=== PATIENT | female | born 1985 | race Caucasian/White ===

== ENCOUNTER → 2021-08-02 06:43 | Outpatient (CLI) | payer OTHER, SELFPAY ==
[2021-08-02] MEDS: Methacholine Chloride 18 ml neb kit INHALATION (07:00)
--- NOTE | 2021-08-02 07:34 | CPS ---
Patient received 4 medication doses of Methacholine during testing as well as the normal saline dose. Patient reached a positive test at the 4mg/ml dose. The last dose, 16mg/ml, was disposed of in the Pharmaceutical waste bin.
--- NOTE | 2021-08-02 14:54 | BRONCHALL ---
Bronchoprovocation Challenge Bronchoprovocation Challenge Bronchoprovocation Challenge: BRONCHOPROVOCATION STUDY INTERPRETATION Brief HPI: Patient is a 36 year old female, currently under the care of Dr. Srivastava, who presents to [facility] for a bronchoprovocation study secondary to diagnosis of dyspnea. Respiratory therapist reports good effort and reproducible results. Interpretation: Initial spirometry showed no large airways obstructive ventilatory defect. The patient was then given increasingly concentrated doses of methacholine in a stepwise/standardized fashion, using a modified ATS protocol. The patient had a significant reduction in FEV1 by 22% and a calculated PD20 of 0.157. Impression: Positive bronchoprovocation study in a range consistent with a diagnosis of asthma
== END ==
PROVIDERS: PCP Internal Medicine
DX: R06.02 Shortness of breath (principal)
CPT/HCPCS: 94070; 95070

== ENCOUNTER → 2023-09-27 | Outpatient (CLI) | payer OTHER, SELFPAY ==
--- OUTSIDE RECORDS SUMMARY | 2023-09-27 07:23 | XMS RPT_ITS | CCD ---
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 Role Phone Diane Higuera MD Primary Care Provider TALAMPAS, DIANE D Primary Care Unavailable NKECHI SRIVASTAVA Attending Unavailable BETANCOURT, SAM A Referring Unavailable TALAMPAS, DIANE D Referring Unavailable TALAMPAS, DIANE D Primary Care Unavailable TALAMPAS, DIANE D Primary Care Unavailable TALAMPAS, DIANE D Primary Care Unavailable TALAMPAS, DIANE D Primary Care Unavailable Selma'LEIDYJAJA Attending Unavailable BERRY, DARIUSZ Referring Unavailable Selma'LEIDYJAJA العراقي Attending Unavailable TALAMPAS, DIANE D Primary Care Unavailable BERRY, DARIUSZ Referring Unavailable TALAMPAS, DIANE D Primary Care Unavailable TALAMPAS, DIANE D Primary Care Unavailable HALLIE KABA Referring Unavail able TALAMPAS, DIANE D Primary Care Unavailable BETANCOURT, SAM A Referring Unavailable TALAMPAS, DIANE D Attending Unavailable TALAMPAS, DIANE D Primary Care Unavailable TALAMPAS, DIANE D Referring Unavailable TALAMPAS, DIANE D Primary Care Unavailable TALAMPAS, DIANE D Primary Care Unavailable ADRIAN BETANCOURTILA A Referring Unavailable BETSEY AGUILERA Attending Unavailable TALAMPAS, DIANE D Primary Care Unavailable BERRY, DARIUSZ Referring Unavailable TALAMPAS, DIANE D Primary Care Unavailable HALLIE KABA Referring Unavail able TIAGO LEBLANC Attending Unavailable TALAMPAS, DIANE D Primary Care Unavailable TALAMPAS, DIANE D Primary Care Unavailable HALLIE KABA Referring Unavail able TALAMPAS, DIANE D Primary Care Unavailable TIAGO LEBLANC Referring Unavailable TIAGO LEBLANC Attending Unavailable TALAMPAS, DIANE D Primary Care Unavailable TALAMPAS, DIANE D Primary Care Unavailable HALLIE KABA Referring Unavail able TALAMPAS, DIANE D Primary Care Unavailable TIAGO LEBLANC Referring Unavailable TIAGO LEBLANC Attending Unavailable TALAMPAS, DIANE D Primary Care Unavailable BESSIE GREGG Attending Unavailable NEYHALLIE PÉREZ Attending Unavail able TALAMPAS, DIANE D Primary Care Unavailable TALAMPAS, DIANE D Primary Care Unavailable TALAMPAS, DIANE D Referring Unavailable TALAMPAS, DIANE D Primary Care Unavailable TALAMPAS, DIANE D Referring Unavailable TALAMPAS, DIANE D Primary Care Unavailable DARIUSZ BERRY Attending Unavailable TALAMPAS, DIANE D Primary Care Unavailable TALAMPAS, DIANE D Primary Care Unavailable TALAMPAS, DIANE D Attending Unavailable TALAMPAS, DIANE D Primary Care Unavailable BESSIE GREGG Attending Unavailable TALAMPAS, DIANE D Primary Care Unavailable NKECHI SRIVASTAVA Referring Unavailable TALAMPAS, DIANE D Primary Care Unavailable NKECHI SRIVASTAVA Referring Unavailable TALAMPAS, DIANE D Primary Care Unavailable NKECHI SRIVASTAVA Referring Unavailable SAM BETANCOURT Attending Unavailable TALAMPAS, DIANE D Attending Unavailable TALAMPAS, DIANE D Primary Care Unavailable Allergies Allergy Classification Reported Allergen(s) Allergy Type Date of Onset Reaction(s) Facility (20 sources) Clindamycin; Translations: [CLINDAMYCIN] Drug Allergy 05-09-20 10 Rash, GI Upset [facility] Work Phone: (4 sources) Penicillins Propensity to adverse reactions 05-09-20 10 Rash [facility] Work Phone: [phone] (20 sources) Sulfamethoxazole / Trimethoprim Drug Allergy 05-09-20 10 Rash, GI Upset [facility] Work Phone: (3 sources) Penicillins Propensity to adverse reactions 05-09-20 10 Rash [facility] Work Phone: [phone] (3 sources) Sulfamethoxazole / Trimethoprim; Translations: [SULFAMETHOXAZOLE-T RIMETHOPRIM] Drug Allergy 05-09-20 10 Rash, GI Upset [facility] Work Phone: (1 source) OTHER; Translations: [OTHER] Propensity to adverse reactions (disorder) 05-09-20 10 [facility] Medications Current Medications Medication Drug Class(es) Dates Sig (Normalized) Sig (Original) benzonatate 100 mg oral capsule (4 sources) Non-narcotic Antitussive Start: 12-30-2021 End: 02-28-2022 benzonatate (TESSALON PERLE) 100 mg capsule Take 1-2 capsules tid prn, no more than 6 in 24 hours. 30 capsule 0 12/30/2021 02/28/2022 Discontinued Completed/Discontinued Medications Medication Drug Class(es) Dates Sig (Normalized) Sig (Original) acetaminophen 325 mg oral capsule (20 sources) acetaminophen 32 5 mg cap Take by mouth as needed. 0 Active Problems Active Problems Problem Classification Problem Date Documented Da te Episodic/Chronic Asthma (20 sources) Uncomplicated asthma; Translations: [Unspecified asthma, uncomplicated] Onset: 05-31-2022 Chronic Complications of surgical procedures or medical care (1 source) Non dose-related adverse reaction to medication; Translations: [Unspecified adverse effect of drug or medicament, initial encounter] Episodic Essential hypertension (20 sources) Benign essential hypertension; Translations: [Essential (primary) hypertension] Onset: 04-19-2021 04-19-2021 Chronic Genitourinary symptoms and ill-defined conditions (20 sources) Female stress incontinence; Translations: [Stress incontinence (female) (male)] Onset: 11-10-2021 11-10-2021 Chronic Immunizations and screening for infectious disease (3 sources) Patient encounter status; Translations: [Encounter for immunization] Episodic Inflammation; infection of eye (except that caused by tuberculosis or sexually transmitteddisease) (1 source) Acute conjunctivitis of right eye; Translations: [Unspecified acute conjunctivitis, right eye] Episodic Menstrual disorders (20 sources) Menorrhagia; Translations: [Excessive and frequent menstruation with regular cycle] Onset: 11-10-2021 11-10-2021 Chronic Other connective tissue disease (1 source) Cramp; Translations: [Cramp and spasm] Episodic Other female genital disorders (1 source) Abnormal uterine and vaginal bleeding, unspecified; Translations: [Abnormal uterine bleeding (AUB)] Onset: 01-12-2023 Chronic Other gastrointestinal disorders (1 source) Loose stool; Translations: [Other fecal abnormalities] 05-30-2023 Episodic Other gastrointestinal disorders (2 sources) Constipation alternates with diarrhea; Translations: [Other specified symptoms and signs involving the digestive system and abdomen] 06-16-2023 Episodic Other gastrointestinal disorders (1 source) Full rectum; Translations: [Other specified symptoms and signs involving the digestive system and abdomen] 06-16-2023 Episodic Other gastrointestinal disorders (1 source) Amount of mucus in stool abnormal; Translations: [Other fecal abnormalities] 06-16-2023 Episodic Other gastrointestinal disorders (2 sources) Altered bowel function; Translations: [Change in bowel habit] 06-16-2023 Episodic Other gastrointestinal disorders (1 source) Functional diarrhea; Translations: [Functional diarrhea] 08-07-2023 Episodic Other injuries and conditions due to external causes (1 source) Allergic condition; Translations: [Allergy, unspecified, subsequent encounter] Episodic Other lower respiratory disease (1 source) Wheezing; Translations: [Wheezing] Episodic Other lower respiratory disease (1 source) Cough; Translations: [Cough] Episodic Other non-traumatic joint disorders (2 sources) Multiple joint pain; Translations: [Pain in unspecified joint] 05-04-2023 Episodic Other non-traumatic joint disorders (2 sources) Hip pain; Translations: [Pain in right hip] 05-25-2023 Episodic Other nutritional; endocrine; and metabolic disorders (1 source) Obesity; Translations: [Other obesity due to excess calories] Chronic Other nutritional; endocrine; and metabolic disorders (2 sources) Obesity caused by energy imbalance; Translations: [Other obesity due to excess calories] 05-04-2023 Chronic Other nutritional; endocrine; and metabolic disorders (1 source) Morbid (severe) obesity due to excess calories; Translations: [Class 3 severe obesity due to excess calories with body mass index (BMI) of 40.0 to 44.9 in adult, unspecified whether serious comorbidity present (HCC)] Onset: 02-09-2023 Chronic Other nutritional; endocrine; and metabolic disorders (1 source) Body mass index (BMI) 40.0-44.9, adult; Translations: [Class 3 severe obesity due to excess calories with body mass index (BMI) of 40.0 to 44.9 in adult, unspecified whether serious comorbidity present (HCC)] Onset: 02-09-2023 Chronic Other screening for suspected conditions (not mental disorders or infectious disease) (3 sources) Other abnormal and inconclusive findings on diagnostic imaging of breast; Translations: [Encounter for screening for malignant neoplasm of colon] Onset: 07-06-2023 Episodic Other upper respiratory disease (4 sources) Allergic rhinitis; Translations: [Allergic rhinitis, unspecified] Chronic Other upper respiratory disease (20 sources) Allergic rhinitis due to pollen; Translations: [Allergic rhinitis due to pollen] Onset: 05-31-2022 Chronic Other upper respiratory disease (20 sources) Chronic rhinitis; Translations: [Chronic rhinitis] Onset: 05-31-2022 Chronic Other upper respiratory disease (1 source) Allergic rhinitis, unspecified; Translations: [Allergic rhinitis, unspecified seasonality, unspecified trigger] Onset: 02-09-2023 Chronic Other upper respiratory disease (1 source) Chronic rhinitis; Translations: [Chronic rhinitis] Onset: 05-31-2022 Chronic Other upper respiratory infections (3 sources) Posterior rhinorrhea; Translations: [Postnasal drip] Episodic Sprains and strains (4 sources) Strain of back muscle; Translations: [Strain of muscle, fascia and tendon of lower back, initial encounter] Onset: 04-13-2023 04-13-2023 Episodic Unclassified (1 source) APPOINTMENT CANCELLED 04-01-2023 Viral infection (1 source) Viral disease; Translations: [Viral infection, unspecified] Episodic Past or Other Problems Problem Classification Problem Date Documented Da te Episodic/Chronic Abdominal pain (9 sources) Epigastric pain; Translations: [Epigastric pain] Onset: 01-12-2023 06-26-2023 Episodic Gastrointestinal hemorrhage (8 sources) Rectal hemorrhage; Translations: [Hemorrhage of anus and rectum] Onset: 06-26-2023 06-26-2023 Episodic Hemorrhoids (2 sources) Bleeding hemorrhoids; Translations: [Unspecified hemorrhoids] Onset: 06-16-2023 06-16-2023 Episodic Nausea and vomiting (9 sources) Nausea; Translations: [Nausea] Onset: 06-26-2023 06-26-2023 Episodic Nonspecific chest pain (20 sources) Chest pain; Translations: [Chest pain, unspecified] Onset: 04-19-2021 04-19-2021 Episodic Other female genital disorders (20 sources) Polyp of cervix; Translations: [Polyp of cervix uteri] Onset: 11-10-2021 11-10-2021 Episodic Other gastrointestinal disorders (8 sources) Diarrhea; Translations: [Diarrhea, unspecified] Onset: 07-19-2010 06-26-2023 Episodic Other gastrointestinal disorders (1 source) Diarrhea, unspecified; Translations: [Diarrhea, unspecified type] Onset: 06-26-2023 Episodic Other gastrointestinal disorders (1 source) Other specified symptoms and signs involving the digestive system and abdomen; Translations: [Alternating constipation and diarrhea] Onset: 06-16-2023 Episodic Other gastrointestinal disorders (1 source) Change in bowel habit; Translations: [Change in bowel habits] Onset: 06-16-2023 Episodic Other injuries and conditions due to external causes (1 source) Allergy, unspecified, subsequent encounter; Translations: [Allergy, subsequent encounter] Onset: 05-15-2023 Episodic Other lower respiratory disease (20 sources) Dyspnea; Translations: [Shortness of breath] Onset: 04-19-2021 04-19-2021 Episodic Other lower respiratory disease (1 source) Shortness of breath; Translations: [SOB (shortness of breath)] Onset: 04-19-2021 Episodic Other non-traumatic joint disorders (1 source) Pain in right hip; Translations: [Bilateral hip pain] Onset: 05-25-2023 Episodic Other non-traumatic joint disorders (1 source) Pain in left hip; Translations: [Bilateral hip pain] Onset: 05-25-2023 Episodic Other non-traumatic joint disorders (1 source) Pain in unspecified joint; Translations: [Pain in joint, multiple sites] Onset: 05-04-2023 Episodic Results Test Name Value Interpretation Reference Range Facil ity Vital Signs Date Time Vital Sign Value Performing Clinician Say robb 09-03-2023 14:58-0500 Body weight 78.93 kg Bessie Gregg PA-C Work Phone: [facility] 09-03-2023 14:58-0500 Diastolic blood pressure 84 mm[Hg] Bessie Gregg PA-C Work Phone: [facility] 09-03-2023 14:58-0500 Heart rate 58 /min Bessie Gregg PA-C Work Phone: [facility] 09-03-2023 14:58-0500 Respiratory rate 14 /min Bessie Johnsonone PA-C Work Phone: [facility] 09-03-2023 14:58-0500 SaO2% (BldA) [Mass fraction] 100 % Bessie Pricilla PA-C Work Phone: [facility] 09-03-2023 14:58-0500 Systolic blood pressure 128 mm[Hg] Bessie Johnsonone PA-C Work Phone: [facility] 08-03-2023 08:15-0500 Body temperature 98.4 [degF] Tiago Leblanc MD Work Phone: [facility] 08-03-2023 08:15-0500 Body weight 83.28 kg Tiago Leblanc MD Work Phone: [facility] 08-03-2023 08:15-0500 Diastolic blood pressure 80 mm[Hg] Tiago Leblanc MD Work Phone: [facility] 08-03-2023 08:15-0500 Heart rate 89 /min Tiago Leblanc MD Work Phone: [facility] 08-03-2023 08:15-0500 Respiratory rate 16 /min Tiago Leblanc MD Work Phone: [facility] 08-03-2023 08:15-0500 SaO2% (BldA) [Mass fraction] 100 % Tiago Leblanc MD Work Phone: [facility] 08-03-2023 08:15-0500 Systolic blood pressure 128 mm[Hg] Tiago Leblanc MD Work Phone: [facility] 06-26-2023 16:02-0400 Body height 172.7 cm Tiago Leblanc MD Work Phone: [facility] 06-26-2023 16:02-0400 Body temperature 99.1 [degF] Tiago Leblanc MD Work Phone: [facility] 06-26-2023 16:02-0400 Body weight 90.17 kg Tiago Leblanc MD Work Phone: [facility] 06-26-2023 16:02-0400 Diastolic blood pressure 84 mm[Hg] Tiago Leblanc MD Work Phone: [facility] 06-26-2023 16:02-0400 Heart rate 91 /min Tiago Leblanc MD Work Phone: [facility] 06-26-2023 16:02-0400 SaO2% (BldA) [Mass fraction] 100 % Tiago Leblanc MD Work Phone: [facility] 06-26-2023 16:02-0400 Systolic blood pressure 128 mm[Hg] Tiago Leblanc MD Work Phone: [facility] 06-16-2023 08:05-0400 Body height 165.1 cm Diane Higuera MD Work Phone: [facility] 06-16-2023 08:05-0400 Body temperature 98.29 [degF] Diane Higuera MD Work Phone: [facility] 06-16-2023 08:05-0400 Body weight 91.63 kg Diane Higuera MD Work Phone: [facility] 06-16-2023 08:05-0400 Diastolic blood pressure 76 mm[Hg] Diane Higuera MD Work Phone: [facility] 06-16-2023 08:05-0400 Heart rate 79 /min Diane Higuera MD Work Phone: [facility] 06-16-2023 08:05-0400 Respiratory rate 12 /min Diane Higuera MD Work Phone: [facility] 06-16-2023 08:05-0400 SaO2% (BldA) [Mass fraction] 100 % Diane Higuera MD Work Phone: [facility] 06-16-2023 08:05-0400 Systolic blood pressure 122 mm[Hg] Diane Higuera MD Work Phone: [facility] 05-30-2023 09:59-0400 Body temperature 98.8 [degF] [facility] [employer]INT LINE INSPECTOR.[employer]IEF Work Phone: [facility] 05-30-2023 09:59-0400 Body weight 91.63 kg [facility] [employer]INT LINE INSPECTOR.[employer]IEF Work Phone: [facility] 05-30-2023 09:59-0400 Diastolic blood pressure 80 mm[Hg] [facility] [employer]INT LINE INSPECTOR.[employer]IEF Work Phone: [facility] 05-30-2023 09:59-0400 Heart rate 88 /min [facility] [employer]INT LINE INSPECTOR.[employer]IEF Work Phone: [facility] 05-30-2023 09:59-0400 Respiratory rate 16 /min [facility] PRINT LINE INSPECTOR.[employer]IEF Work Phone: [facility] 05-30-2023 09:59-0400 SaO2% (BldA) [Mass fraction] 99 % [facility] [employer]INT LINE INSPECTOR.[employer]IEF Work Phone: [facility] 05-30-2023 09:59-0400 Systolic blood pressure 118 mm[Hg] [facility] [employer]INT LINE INSPECTOR.[employer]IEF Work Phone: [facility] 05-25-2023 11:49-0400 Body temperature 99.1 [degF] Diane Higuera MD Work Phone: [facility] 05-25-2023 11:49-0400 Body weight 93.44 kg Daine Higuera MD Work Phone: [facility] 05-25-2023 11:49-0400 Diastolic blood pressure 86 mm[Hg] Diane Higuera MD Work Phone: [facility] 05-25-2023 11:49-0400 Heart rate 61 /min Diane Higuera MD Work Phone: [facility] 05-25-2023 11:49-0400 Respiratory rate 18 /min Diane Higuera MD Work Phone: [facility] 05-25-2023 11:49-0400 SaO2% (BldA) [Mass fraction] 100 % Diane Higuera MD Work Phone: [facility] 05-25-2023 11:49-0400 Systolic blood pressure 137 mm[Hg] Diane Higuera MD Work Phone: [facility] 05-04-2023 09:17-0400 Body weight 93.89 kg Nkechi Srivastava MD Work Phone: [facility] 05-04-2023 09:17-0400 Diastolic blood pressure 68 mm[Hg] Nkechi Srivastava MD Work Phone: [facility] 05-04-2023 09:17-0400 Heart rate 75 /min Nkechi Srivastava MD Work Phone: [facility] 05-04-2023 09:17-0400 Respiratory rate 17 /min Nkechi Srivastava MD Work Phone: [facility] 05-04-2023 09:17-0400 SaO2% (BldA) [Mass fraction] 100 % Nkechi Srivastava MD Work Phone: [facility] 05-04-2023 09:17-0400 Systolic blood pressure 122 mm[Hg] Nkechi Srivastava MD Work Phone: [facility] 04-13-2023 11:52-0400 Body temperature 99 [degF] Diane Higuera MD Work Phone: [facility] 04-13-2023 11:52-0400 Body weight 92.08 kg Diane Higuera MD Work Phone: [facility] 04-13-2023 11:52-0400 Diastolic blood pressure 84 mm[Hg] Diane Higuera MD Work Phone: [facility] 04-13-2023 11:52-0400 Heart rate 75 /min Diane Higuera MD Work Phone: [facility] 04-13-2023 11:52-0400 Respiratory rate 18 /min Diane Higuera MD Work Phone: [facility] 04-13-2023 11:52-0400 SaO2% (BldA) [Mass fraction] 99 % Diane Higuera MD Work Phone: [facility] 04-13-2023 11:52-0400 Systolic blood pressure 118 mm[Hg] Diane Higuera MD Work Phone: [facility] 12-01-2022 10:57-0500 Diastolic blood pressure 64 mm[Hg] Nurse Work Phone: [facility] 12-01-2022 10:57-0500 Heart rate 62 /min Nurse Work Phone: [facility] 12-01-2022 10:57-0500 SaO2% (BldA) [Mass fraction] 100 % Nurse Work Phone: [facility] 12-01-2022 10:57-0500 Systolic blood pressure 128 mm[Hg] Nurse Work Phone: [facility] 10-06-2022 08:10-0500 Diastolic blood pressure 67 mm[Hg] Nurse Work Phone: [facility] 10-06-2022 08:10-0500 Heart rate 73 /min Nurse Work Phone: [facility] 10-06-2022 08:10-0500 SaO2% (BldA) [Mass fraction] 98 % Nurse Work Phone: [facility] 10-06-2022 08:10-0500 Systolic blood pressure 123 mm[Hg] Nurse Work Phone: [facility] 09-06-2022 15:32-0500 Body weight 92.99 kg Sam Betancourt MD Work Phone: [facility] 09-06-2022 15:32-0500 Diastolic blood pressure 77 mm[Hg] Sam Betancourt MD Work Phone: [facility] 09-06-2022 15:32-0500 Heart rate 65 /min Sam Betancourt MD Work Phone: [facility] 09-06-2022 15:32-0500 SaO2% (BldA) [Mass fraction] 100 % Sam Betancourt MD Work Phone: [facility] 09-06-2022 15:32-0500 Systolic blood pressure 120 mm[Hg] Sam Betancourt MD Work Phone: [facility] 08-11-2022 09:56-0500 Diastolic blood pressure 72 mm[Hg] Nurse Work Phone: [facility] 08-11-2022 09:56-0500 Heart rate 74 /min Nurse Work Phone: [facility] 08-11-2022 09:56-0500 SaO2% (BldA) [Mass fraction] 100 % Nurse Work Phone: [facility] 08-11-2022 09:56-0500 Systolic blood pressure 132 mm[Hg] Nurse Work Phone: [facility] 06-16-2022 08:14-0400 Body weight 96.16 kg Rupal Older [employer] INSPECTOR.[employer]IEF Work Phone: [facility] 06-16-2022 08:14-0400 Diastolic blood pressure 80 mm[Hg] Rupal Older [employer] LINE INSPECTOR[employer]IEF Work Phone: [facility] 06-16-2022 08:14-0400 Heart rate 68 /min Rupal Older [employer] LINE INSPECTOR.[employer]IEF Work Phone: [facility] 06-16-2022 08:14-0400 Respiratory rate 16 /min Rupal Older [employer] LINE INSPECTOR.[employer]IEF Work Phone: [facility] 06-16-2022 08:14-0400 Systolic blood pressure 128 mm[Hg] Rupal Older [employer] LINE INSPECTOR.[employer]IEF Work Phone: [facility] 06-14-2022 15:16-0400 Diastolic blood pressure 83 mm[Hg] Nurse Work Phone: [facility] 06-14-2022 15:16-0400 Heart rate 69 /min Nurse Work Phone: [facility] 06-14-2022 15:16-0400 SaO2% (BldA) [Mass fraction] 100 % Nurse Sage Work Phone: [facility] 06-14-2022 15:16-0400 Systolic blood pressure 133 mm[Hg] Nurse Sage Work Phone: [facility] 05-30-2022 09:38-0400 Body weight 99.34 kg Sam Betancourt MD Work Phone: [facility] 05-30-2022 09:38-0400 Diastolic blood pressure 83 mm[Hg] Sam Betancourt MD Work Phone: [facility] 05-30-2022 09:38-0400 Heart rate 75 /min Sam Betancourt MD Work Phone: [facility] 05-30-2022 09:38-0400 SaO2% (BldA) [Mass fraction] 99 % Sam Betancourt MD Work Phone: [facility] 05-30-2022 09:38-0400 Systolic blood pressure 141 mm[Hg] Sam Betancuort MD Work Phone: [facility] 04-19-2022 14:54-0400 Body weight 101.15 kg Sam Betancourt MD Work Phone: [facility] 04-19-2022 14:54-0400 Diastolic blood pressure 80 mm[Hg] Sam Betancourt MD Work Phone: [facility] 04-19-2022 14:54-0400 Heart rate 77 /min Sam Betancourt MD Work Phone: [facility] 04-19-2022 14:54-0400 SaO2% (BldA) [Mass fraction] 100 % Sam Betancourt MD Work Phone: [facility] 04-19-2022 14:54-0400 Systolic blood pressure 135 mm[Hg] Sam Betancourt MD Work Phone: [facility] 03-30-2022 09:39-0400 Body weight 102.51 kg Bessie Pricilla PA-C Work Phone: [facility] 03-30-2022 09:39-0400 Diastolic blood pressure 82 mm[Hg] Bessie Pricilla PA-C Work Phone: [facility] 03-30-2022 09:39-0400 Heart rate 74 /min Bessie Pricilla PA-C Work Phone: [facility] 03-30-2022 09:39-0400 Respiratory rate 17 /min Bessie Pricilla PA-C Work Phone: [facility] 03-30-2022 09:39-0400 SaO2% (BldA) [Mass fraction] 99 % Bessie Pricilla PA-C Work Phone: [facility] 03-30-2022 09:39-0400 Systolic blood pressure 132 mm[Hg] Bessie Pricilla PA-C Work Phone: [facility] 02-28-2022 08:54-0400 Body weight 104.33 kg Dariusz Berry [employer] LINE INSPECTOR.ELIGIBILITY SUPERVISOR Work Phone: [facility] 02-28-2022 08:54-0400 Diastolic blood pressure 86 mm[Hg] Dariusz Berry [employer]INT LINE INSPECTOR.ELIGIBILITY SUPERVISOR Work Phone: [facility] 02-28-2022 08:54-0400 Heart rate 72 /min Dariusz Berry [employer]INT LINE INSPECTOR.ELIGIBILITY SUPERVISOR Work Phone: [facility] 02-28-2022 08:54-0400 Respiratory rate 16 /min Dariusz Berry [employer]INT LINE INSPECTOR.ELIGIBILITY SUPERVISOR Work Phone: [facility] 02-28-2022 08:54-0400 Systolic blood pressure 124 mm[Hg] Dariusz Berry PRINT LINE INSPECTOR.ELIGIBILITY SUPERVISOR Work Phone: [facility] 12-30-2021 17:33-0400 Body temperature 98.49 [degF] Barby Willow [employer]INT LINE INSPECTOR.[employer]IEF Work Phone: [facility] 12-30-2021 17:33-0400 Body weight 109.68 kg Barby Willow [employer]INT LINE INSPECTOR.[employer]IEF Work Phone: [facility] 12-30-2021 17:33-0400 Diastolic blood pressure 76 mm[Hg] Barby Daugherty [employer] LINE INSPECTOR.[employer]IEF Work Phone: [facility] 12-30-2021 17:33-0400 Heart rate 84 /min Barby Daugherty [employer]INT LINE INSPECTOR.[employer]IEF Work Phone: [facility] 12-30-2021 17:33-0400 Respiratory rate 18 /min Barby Daugherty [employer] LINE INSPECTOR.[employer]IEF Work Phone: [facility] 12-30-2021 17:33-0400 SaO2% (BldA) [Mass fraction] 97 % Barby Daugherty [employer]INT LINE INSPECTOR.[employer]IEF Work Phone: [facility] 12-30-2021 17:33-0400 Systolic blood pressure 124 mm[Hg] Barby Daugherty [employer]INT LINE INSPECTOR.[employer]IEF Work Phone: [facility] Encounters Encounter Date Encounter Type Care Provider Facility Start: 09-25-2023 End: 09-25-2023 ambulatory BETSEY AGUILERA Facility:[facility] Start: 09-19-2023 End: 09-19-2023 ambulatory JAJA LEONARD Facility:[facility] Start: 09-14-2023 End: 09-14-2023 ambulatory DIANE HIGUERA Facility:[facility] Start: 09-07-2023 End: 09-07-2023 ambulatory DIANE HIGUERA Facility:[facility] Start: 09-04-2023 End: 09-04-2023 ambulatory DIANE HIGUERA Facility:[facility] Start: 09-04-2023 End: 09-04-2023 Subsequent hospital visit by physician [facility] (I-Stat/1.5t) Work Phone: Radiology Procedures Date Procedure Procedure Detail Performing Clinician Start: 09-04-2023 Mri any jt lower ext rem w/o contrast matrl Diane Higuera MD Work Phone: Start: 06-16-2022 INFLUENZA VACCINE QUADRIVALENT 6 MO - 62 YRS IM Rupal Storm [employer] LINE INSPECTOR.[employer]IEF Work Phone: Start: 06-16-2022 Adult depression scr eening assessment Rupalanjali Storm [employer]INT LINE INSPECTOR.[employer]IEF Work Phone: Start: 04-19-2022 Nitric oxide gas determination Sam Betancourt MD Work Phone: Start: 04-19-2022 ALLERGEN SKIN TEST-PENICILLIN Sam Betancourt MD Work Phone: Start: 04-19-2022 Ingestion challenge test initial 120 minutes Sam Betancourt MD Work Phone: Start: 04-19-2022 INHALANT 32 ALLERGEN SKIN TEST Sam Betancourt MD Work Phone: Start: 04-19-2022 Brncdilat rspse spmt ry pre&post-brncdilat admn Sam Betancourt MD Work Phone: Start: 07-23-2021 Adult depression scr eening assessment Barby Daugherty PRINT LINE INSPECTOR.COOK RELIEF Work Phone: Plan of Treatment Date Care Activity Detail Author Start: 2028 Urine microalbumin profile [facility] Start: 11-10-2026 HPV TESTING HPV TESTING [facility] Start: 11-10-2026 PAP TESTING PAP TESTING [facility] Start: 11-10-2026 Screening for malign ant neoplasm of cervix [facility] Start: 07-06-2024 Mammography Mammogram Screening [facility] Start: 07-06-2024 Screening for malign ant neoplasm of breast Mammogram Screening [facility] Start: 06-16-2024 Annual PCP Team Pantry Worker fang Disease Visit Annual PCP Team Chronic Disease Visit [facility] Start: 06-16-2024 BP Controlled (<130/80) BP Controlle d (<130/80) [facility] Start: 05-25-2024 ANNUAL PCP TEAM PRODUCT/INDUSTRY CONSULTANT FANG DISEASE VISIT ANNUAL PCP TEAM CHRONIC DISEASE VISIT [facility] Start: 05-04-2024 BP CONTROLLED (<130/80) BP CONTROLLE D (<130/80) [facility] Start: 04-13-2024 ANNUAL PCP TEAM PRODUCT/INDUSTRY CONSULTANT FANG DISEASE VISIT ANNUAL PCP TEAM CHRONIC DISEASE VISIT [facility] Start: 12-30-2023 BP CONTROLLED (<130/80) BP CONTROLLE D (<130/80) [facility] Start: 12-02-2023 BP CONTROLLED (<130/80) BP CONTROLLE D (<130/80) [facility] Start: 10-06-2023 BP CONTROLLED (<130/80) BP CONTROLLE D (<130/80) [facility] Start: 09-23-2023 DEPRESSION ASSESSMENT DEPRESSION ASS ESSMENT [facility] Immunizations Immunization Date Immunization Notes Care Provider Kia rios 06-16-2022 influenza, injectabl e, quadrivalent, contains preservative Rupal Storm PRINT LINE INSPECTOR.COOK RELIEF Work Phone: [facility] 06-16-2022 pneumococcal (PCV20) vaccine, 20 valent (PREVNAR 20) Rupal Storm PRINT LINE INSPECTOR.COOK RELIEF Work Phone: [facility] 06-16-2022 pneumococcal Conjugate, unspecified formulation Rupal Storm PRINT LINE INSPECTOR.COOK RELIEF Work Phone: [facility] Work Phone: 06-16-2022 influenza virus vaccine, unspecified formulation Diane Higuera MD Work Phone: [facility] 02-28-2022 COVID-19 vaccine, booster dose (MODERNA) Respiratory Wstr Work Phone: [facility] Work Phone: 01-25-2021 COVID-19 vaccine, fu ll dose (MODERNA) Barby Daugherty PRINT LINE INSPECTOR.COOK RELIEF Work Phone: [facility] Work Phone: 12-28-2020 COVID-19 vaccine, fu ll dose (MODERNA) Barby Daugherty PRINT LINE INSPECTOR.COOK RELIEF Work Phone: [facility] Work Phone: 07-28-2020 influenza, injectabl e, quadrivalent, contains preservative Barby Barajask PRINT LINE INSPECTOR.COOK RELIEF Work Phone: [facility] 2018 tetanus toxoid, reduced diphtheria toxoid, and acellular pertussis vaccine, adsorbed Barbykassie Daugherty PRINT LINE INSPECTOR.COOK RELIEF Work Phone: [facility] 06-15-1989 diphtheria, tetanus toxoids and pertussis vaccine Barby Willow PRINT LINE INSPECTOR.COOK RELIEF Work Phone: [facility] 12-01-1988 diphtheria, tetanus toxoids and pertussis vaccine Barby Willow PRINT LINE INSPECTOR.COOK RELIEF Work Phone: [facility] 12-01-1988 poliovirus vaccine, unspecified formulation Barby Willow PRINT LINE INSPECTOR.COOK RELIEF Work Phone: [facility] 02-10-1985 measles, mumps and rubella virus vaccine Barby Willow PRINT LINE INSPECTOR.COOK RELIEF Work Phone: [facility] 05-07-1984 diphtheria, tetanus toxoids and pertussis vaccine Barby Willow PRINT LINE INSPECTOR.COOK RELIEF Work Phone: [facility] 05-07-1984 poliovirus vaccine, unspecified formulation Barby Willow PRINT LINE INSPECTOR.COOK RELIEF Work Phone: [facility] 03-12-1984 diphtheria, tetanus toxoids and pertussis vaccine Barby Willow PRINT LINE INSPECTOR.COOK RELIEF Work Phone: [facility] 03-12-1984 poliovirus vaccine, unspecified formulation Barby Willow PRINT LINE INSPECTOR.COOK RELIEF Work Phone: [facility] Payers Date Payer Category Payer Unknown [id number] 2017 Unknown MMO MMO [employer] [id number] 2017-Present [phone] [address] [address] [place] [address] Indemnity [id number] 2017 Unknown [id number] 2017 Unknown [id number] Social History Date Type Detail Facility Start: 05-30-2022 End: 05-15-2023 Tobacco smoking status NHIS Never smoked tobacco [facility] Work Phone: Start: 12-30-2021 End: 09-03-2023 Alcohol intake Ex-drinker (finding) [facility] Start: 07-28-2020 End: 04-04-2021 History SDOH Alcohol Frequency 1 [facility] Start: 07-28-2020 History SDOH Alcohol Std Drinks 98 [facility] Start: 08-08-2019 End: 07-25-2020 History SDOH Social Connections Phone 5 [facility] Start: 07-25-2020 End: 08-08-2021 History SDOH Social Connections Get Together 2 [facility] Start: 08-08-2019 History SDOH Social Connections Islam 3 [facility] Start: 08-08-2019 Education 12 [facility] Start: 1985 Sex Assigned At Not on file [facility] Start: 12-20-2021 End: 06-14-2022 Exposure to SARS-CoV-2 (event) Not sure [facility] Start: 05-30-2022 End: 05-15-2023 Tobacco use and exposure Smokeless tobacco non-user [facility] Start: 02-09-2023 End: 04-13-2023 History of Social function [facility] Work Phone: Start: 02-09-2023 End: 04-13-2023 Tobacco use panel [facility] Work Phone: Adult Depression Screening Assessment 0 [facility] Work Phone: Start: 01-08-2019 Gender identity Identifies as female gender (finding) [facility] Work Phone: Start: 01-08-2019 Sexual orientation Heterosexual (fin pedrito) [facility] Work Phone: Do you belong to any clubs or organizations such as alevism groups, unions, fraternal or athletic groups, or school groups? Yes [facility] Are you now , , , , never or living with a partner? [facility] How often to you hav e a drink containing alcohol? Never [facility] Do you feel stress - tense, restless, nervous, or anxious, or unable to sleep at night because your mind is troubled all the time - these days [OSQ] Not at all [facility] (I/We) worried wheth er (my/our) food would run out before (I/we) got money to buy more. Never true [facility] In the past 12 month s, was there a time when you were not able to pay the mortgage or rent on time? No [facility] NEGATED: Highlighted rowStart: TALIAF History of tobacco use Passive smoker [facility] Clinical Notes 07-19-2010 to 09-25-2023 Bessie Gregg PA-C - 09/03/2023 3:30 PM ESTTelephone Encounter - Rubia Cheema LPN - 08/28/2023 8:14 AM ESTTelephone Encounter - Sam Betancourt MD - 08/20/2023 1:17 PM EST Note Date & Type Note Facility 09-25-2023 Note HNO ID: [id number] Author: Betsey Aguilera MD Service: ? Author Type: Physician Type: Progress Notes Filed: 09/25/2023 11:03 AM Note Text: DEPARTMENT OF ORTHOPAEDICS Consultation as a request of Dariusz Berry [address] [facility] [address] Chief Complaint: Bilateral hip pain HISTORY OF PRESENT ILLNESS: This is a pleasant 38 year old female, who presents today with a chief complaint of R>L hip pain. Injury/ Trauma: Denies PAIN EVALUATION 09/22/2023 0535 Pain Level: 4 Pain Location: Hip-Left right hip Description: Aching;Radiating;Sharp;Stiffness Duration Amount of Time: 12 Duration Units: Months Frequency: Intermittent Intervention/Comfort measure: Medication;Reposition;Relaxation;C old;Distractions;Exercise;Heat;Pil low support;Positioning Comments: both hips-standing or sitting too long,walking too much,steps,squats sleeping wrong makes it worse.sometimes feels like either hip wants to not work.lots of catching/clicking both sides.left usually worse Pain location: anterior and groin Duration of pain/ symptoms: 1 year Frequency: intermittent Intensity: mild to moderate Quality: dull and aching She Reports nocturnal pain. She denies numbness, tingling, or electric shocks. She reports popping and clicking. 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 Activity level: recreational, sport/activity: none PAST MEDICAL HISTORY Diagnosis Date Asthma Constipation Diarrhea Dyspnea on exertion History of echocardiogram 05/13/2021 EF 60-65% RV systolic pressure 25mmHg R atrial pressure 3mmHg History of stress test 05/13/2021 no ischemic electrocardiogrpahic changes noted pt developed chest pressure ehich resolved in recovery phase average exercise capacity for age baseline htn with a normal BP response to exercise PAST SURGICAL HISTORY Procedure Laterality Date ABDOMINAL SURGERY HX APPENDECTOMY CHOLECYSTECTOMY 09/24/2002 Cholecystectomy COLONOSCOPY 07/23/2023 EGD 07/23/2023 LAPS ABD PRTMANDOMENTUM DX W/WO SPEC BR/WA SPX 11/22/2008 Laparoscopy and DANDC Current Outpatient Medications Medication Sig Dispense Refill fluticasone-salmeterol HFA (ADVAIR HFA) 230-21 mcg/actuation inhaler Inhale 2 Puffs as instructed two times a day. 36 g 3 ondansetron orally disintegrating (ZOFRAN ODT) 4 mg disintegrating tablet Take 1 tablet by mouth every 8 hours as needed for nausea/vomiting. 21 tablet 0 loperamide HCl (IMODIUM ORAL) Take by mouth. azelastine 0.1% nasal spray Use 2 Sprays in each nostril twice daily as needed. 90 mL 2 fluticasone (FLONASE) 50 mcg/actuation nasal spray Use 2 Sprays in each nostril once daily. 48 mL 1 montelukast (SINGULAIR) 10 mg tablet Take 1 tablet by mouth daily at bedtime. 90 tablet 3 tiotropium bromide (SPIRIVA RESPIMAT) 1.25 mcg/actuation mist INHALE 2 PUFFS BY MOUTH INSTRUCTED ONCE DAILY. (Patient taking differently: Uses as needed.) 3 Each 2 tezepelumab-ekko (TEZSPIRE) 210 mg/1.91 mL (110 mg/mL) pnij Inject 210 mg subcutaneously every 4 weeks. 1.91 mL 11 albuterol (PROVENTIL) 2.5 mg /3 mL (0.083 %) nebulizer solution Use 3 mL via nebulizer every 4 hours as needed for wheezing/shortness of breath. 36 mL 2 fexofenadine (GM) 180 mg tablet Take 180 mg by mouth as needed. cetirizine (ZYRTEC) 10 mg tablet Take 10 mg by mouth once daily. albuterol HFA (VENTOLIN HFA) 90 mcg/actuation inhaler Inhale 2 Puffs as instructed every 4 hours as needed for wheezing/shortness of breath (and before sexertion / exercise). 1 Each 5 acetaminophen 325 mg cap Take by mouth as needed. Current Facility-Administered Medications Medication Dose Route Frequency Provider Last Rate Last Admin tezepelumab-ekko 210 mg subcutaneous injection (TEZSPIRE) 210 mg SUBCUTANEOUS q 4 WEEKS Sam Betancourt MD 210 mg at 12/29/22 0800 ALLERGIES Allergen Reactions Clindamycin Rash, GI Upset Septra [Sulfamethox* Rash, GI Upset FAMILY HISTORY Problem Relation Age of Onset other (cerical cancer) Mother Asthma Sister Heart Maternal Grandmother Social History Tobacco Use Smoking status: Never Passive exposure: Never Smokeless tobacco: Never Vaping Use Vaping Use: Never used Substance Use Topics Alcohol use: Not Currently Drug use: No REVIEW OF SYSTEMS: GENERAL: No weight loss, malaise or fevers HEENT: Negative for frequent or significant headaches, No changes in hearing or vision, no nose bleeds or other nasal problems NECK: Negative for lumps, goiter, pain and significant neck swelling RESPIRATORY: Negative for cough, hemoptysis, wheezing, COPD, dyspnea or shortness of breath CARDIOVASCULAR: Negative for chest pain, leg swelling, hypertension, CHF or palpitations GI: No nausea (more content not included)... [facility] 09-19-2023 Note HNO ID: [id number] Author: Jaja Leonard, PT Service: ? Author Type: Physical Therapist Type: Progress Notes Filed: 09/20/2023 9:23 AM Note Text: Episode Visit Count: 2 Therapist That Will Accept/Oversee The Plan Of Care: Jaja Leonard Start of Care Date: 09/14/23 Onset Date: 10/15/22 Plan of Care Certification Date: 09/14/23 Next Certification Due Date: 10/26/23 REHABILITATION AND SPORTS THERAPY PHYSICAL THERAPY TREATMENT NOTE ASSESSMENT: Bessie Solomon tolerated the session with increased symptoms. She demonstrated improvements in activity tolerance with hook lying isometric TA, hip, and quadriceps strengthening. Continues to have limited tolerance with AROM and AAROM B hip flexion on the L more so than the right. The patient will continue to benefit from ongoing skilled physical therapy to progress toward set goals. PLAN FOR NEXT VISIT: continue isometric and AAROM stretching/strengthening as tolerated SUBJECTIVE: Pt. reports more R hip soreness from getting out of her vehicle. Pt. also reports increased R hip pain with rolling to the L. Pain: Pain Pain Level: 3 Pain Location: Hip - Left Description: Aching Frequency: With movement Pain Level 2: 3 Pain Location 2: Hip - Right Description 2: Aching Frequency 2: With movement Post Treatment Pain Post Treatment Pain Level: 4 Post Treatment Pain Location: Hip - Right, Hip - Left Post Treatment Pain Description: Aching Post Treatment Symptoms: it's definately more sore. OBJECTIVE MEASURES WITH LEVEL OF FUNCTION: LE AROM R Hip Flexion: 97 Degrees L Hip Flexion: 117 Degrees TREATMENT: Therapeutic Exercise: 1: supine heel slides 1x5 each side (reports increased pain each side) 2: supine SLR 3x3 each side 3: *Access Code: [email or web address] URL: [email or web address] Date: 09/19/2023 Prepared by: Jaja Leonard Exercises - Supine Hip Adduction Isometric with Ball - 2-3 x daily - 7 x weekly - 3 sets - 15 reps - 1 hold - Supine Knee Extension Strengthening - 2-3 x daily - 7 x weekly - 3 sets - 3 reps - 1 hold - Supine Transversus Abdominis Bracing - Hands on Ground - 2-3 x daily - 7 x weekly - 3 sets - 10 reps - 1 hold 4: supine KTC stretch 3x30 sec each side- measurement taken - very limited tolerance with L hip 5: supine B hip AAROM flexion with 55 cm physioball roll outs 3x15 6: supine glute sets 10x 5 sec hold 7: hook lying TA activation with bent knee fall out 3x5 each side 8: hook lying TA activation with BUE press into 55 cm physioball 10x5 sec hold Skilled Intervention: Patient was educated in proper exercise technique and purpose for exercises. Skilled judgment was used in selection of appropriate interventions. Provided written instruction for home exercise program to facilitate proper performance and compliance. Correct performance of therapeutic exercises was facilitated with verbal, visual, and tactile cuing. Educated patient on rationale for performing exercises in regards to decreasing fatigue , increase ease of ADL, and ROM and function . Patient education as noted. Therapeutic Activity: 1: reviewed log rolling 1x to the R and 1x to the L 2: Pivot transfer from standing to the L and R as passenger or trailer driver 1x each Skilled Intervention: Instructed on proper lifting and carrying techniques with importance of core activation. Educated on proper/safe technique for activities performed today. Moderate verbal cues for maintaining neutral spine alignment. Activity progression based on professional judgment. Provided written instruction for home program to facilitate proper performance and compliance. Correct performance of home program was facilitated with verbal, visual, and tactile cueing. Billing Therapeutic Exercise Treatment Minutes: 30 Therapeutic Activity Treatment Minutes: 10 Skilled Treatment Time Minutes (timed and untimed codes): 40 Total Session Time (minutes): 40 Session Start Time : 1751 Session Stop Time : 1831 Jaja Leonard PT [facility] 09-14-2023 Note HNO ID: [id number] Author: Jaja Leonard PT Service: ? Author Type: Physical Therapist Type: Progress Notes Filed: 09/14/2023 9:03 AM Note Text: Episode Visit Count: 1 Therapist That Will Accept/Oversee The Plan Of Care: Jaja Leonard Start of Care Date: 09/14/23 Onset Date: 10/15/22 Plan of Care Certification Date: 09/14/23 Next Certification Due Date: 10/26/23 Patient Identified by Name and Date of : Yes REHABILITATION AND SPORTS THERAPY PHYSICAL THERAPY EVALUATION PLAN OF CARE: Assessment: Bessie Solomon presents with diagnosis of tear of acetabular labrum, unspecified laterality, subsequent encounter that interferes with squatting, walking, rising from a chair, bending, stair negotiation, walking in the community, walking in the house, standing, sitting, weight bearing, bed mobility, working, dressing (unable to sit tank cross apple sauce. ) . She presents with impairments in ADL's, balance, flexibility, gait, independence in exercise, joint mobility, overall function, patient reported outcome measures, posture, range of motion, strength, and symptom management. PROMIS? (Patient-Reported Outcomes Measurement Information System) scores were reviewed and physical function domain and self efficacy domain identified as a rehabilitation concern. Prognosis for therapy is Fair due to: coping skills, chronic nature of impairments, clinical presentation, multiple co- morbidities, limited tolerance to activity, occupational demands, poor understanding of deficits . She will benefit from skilled therapy services to meet the goals established for this plan of care as noted below. Goals for Episode of Care: created on 09/14/23 through 10/26/23 [place] in home exercise program. Patient will decrease pain rating by 2 points to meet minimal clinical important difference for numeric pain rating scale. Patient will increase active ROM of B hip flexion to 120 or greater to allow pt to to improve performance of ADLs and to improve gait mechanics / gait pattern . Patient will demonstrate increase in R hip ER, extension, flexion, IR, abd, and add strength to 3+/5 during manual muscle testing in order to improve function for work tasks. Perform sit <> stand transfers with decreased report of symptoms/pain in 6 weeks. Improve postural awareness. Normal gait. Reciprocal stair negotiation. Patient Goals: reduce pain with prolonged standing and bending at work Planned Interventions, Frequency, and Duration: Current Frequency: 2x/week Duration: 6 weeks Total Number of Visits Planned: 12 Planned Treatment Interventions: Therapeutic exercise (01005), Neuromuscular re-education (33022), Therapeutic activities (40107), Manual therapy (51415), Self-skilled nursing management (07379), Gait Training (61125) PLAN FOR NEXT VISIT: progress to AROM in supine, ER isometrics at ball on wall Patient demonstrates fair understanding of plan of care and treatment. The above goals and plan of care were discussed and agreed upon by patient/family. SUBJECTIVE: for B hip pain that onset without injury September 2022. Denies LBP currenlty and denies hx of LBP. Pt. reports sitting in a highter chair feels better. 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 reports dropping #37 since May 2023 due to GI problems. MRI indicates bilateral hip labral tears. Pt. is scheduled to see ortho October 05, 2023. Patient Goals: reduce pain with prolonged standing and bending at work Functional Limitations: squatting, walking, rising from a chair, bending, stair negotiation, walking in the community, walking in the house, standing, sitting, weight bearing, bed mobility, working, dressing (unable to sit tank cross apple sauce. 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 Cancer Clinical Reasoning: No identified risk factors. Infection Clinical Reasoning: No identified risk factors. Cauda Equina Syndrome Clinical Reasoning: No identified risk factors. Red Flags - Cervical Cancer Clinical Reasoning: No identified risk factors. Infection Clinical Reasoning: No identified risk factors. Spine History Symptoms Location at Onset: (hips) Symptoms Since Onset: Worsening Pain is Worse Always: Standing, Bending, Rising, Walking, As the day progresses Pain is Better Always: Rest, Sitting, Lying (laying supine - unable to lay on her side) Sleep Affected by Pain: Not affected by pain Pain: Pain Pa (more content not included)... [facility] 09-07-2023 Note HNO ID: [id number] Author: Dariusz Berry APRN.ELIGIBILITY SUPERVISOR Service: ? Author Type: Nurse Specialist Type: Progress Notes Filed: 09/07/2023 8:07 AM Note Text: SUBJECTIVE: Hepatitis B Vaccine(1 of 3 - 3-dose series) Never done Influenza Vaccine(1) due on 05/25/2023 Covid-19 Vaccine(2022- season) due on 05/25/2023 BP Controlled (<130/80) due on 06/16/2023 Presents for follow-up visit today regarding bilateral hip MRI ordered by Diane Higuear MD for bilateral hip pain May 25, 2023. This was completed in the last week and showed bilateral hip labral tears. She notes not having seen physical therapy orthopedics as yet. She continues to note bilateral lateral hip pain worse after prolonged standing. Decreased mobility. Difficult to arise from a chair. She reports no injury at the outset of her hip pain. She notes GI upset and infrequent use of medication, has used ice and heat which have helped. Review of Systems Constitutional: Negative. Musculoskeletal: Positive for arthralgias. Objective BP 118/80 Pulse 64 Resp 16 Wt 78.9 kg (174 lb) LMP 07/16/2023 BMI 26.46 kg/m? Physical Exam Vitals and nursing note reviewed. Constitutional: Appearance: Normal appearance. HENT: Head: Normocephalic and atraumatic. Eyes: Conjunctiva/sclera: Conjunctivae normal. Neck: Thyroid: No thyroid mass, thyromegaly or thyroid tenderness. Vascular: No carotid bruit. Cardiovascular: Rate and Rhythm: Normal rate and regular rhythm. Pulses: Normal pulses. Carotid pulses are 2+ on the right side and 2+ on the left side. Radial pulses are 2+ on the right side and 2+ on the left side. Heart sounds: Normal heart sounds. Pulmonary: Effort: Pulmonary effort is normal. Breath sounds: Normal breath sounds and air entry. No stridor or decreased air movement. Abdominal: General: Bowel sounds are normal. Palpations: Abdomen is soft. Musculoskeletal: Right hip: Tenderness present. Decreased range of motion. Left hip: Tenderness present. Decreased range of motion. Right lower leg: No edema. Left lower leg: No edema. Skin: General: Skin is warm and dry. Neurological: General: No focal deficit present. Mental Status: She is alert and oriented to person, place, and time. ALLERGIES Allergen Reactions Clindamycin Rash, GI Upset Septra [Sulfamethox* Rash, GI Upset Medication fluticasone-salmeterol HFA (ADVAIR HFA) 230-21 mcg/actuation inhalerInhale 2 Puffs as instructed two times a day.Disp: 36 gRfl: 3 predniSONE (DELTASONE) 10 mg tabletTake 4 tabs daily x 3 days, then 3 tabs x 3 days, 2 tabs x 3 days, then 1 tab x3 days with food. As directedDisp: 30 tabletRfl: 0 ondansetron orally disintegrating (ZOFRAN ODT) 4 mg disintegrating tabletTake 1 tablet by mouth every 8 hours as needed for nausea/vomiting.Disp: 21 tabletRfl: 0 loperamide HCl (IMODIUM ORAL)Take by mouth.Disp: Rfl: azelastine 0.1% nasal sprayUse 2 Sprays in each nostril twice daily as needed.Disp: 90 mLRfl: 2 fluticasone (FLONASE) 50 mcg/actuation nasal sprayUse 2 Sprays in each nostril once daily.Disp: 48 mLRfl: 1 montelukast (SINGULAIR) 10 mg tabletTake 1 tablet by mouth daily at bedtime.Disp: 90 tabletRfl: 3 tiotropium bromide (SPIRIVA RESPIMAT) 1.25 mcg/actuation mistINHALE 2 PUFFS BY MOUTH INSTRUCTED ONCE DAILY.Disp: 3 EachRfl: 2 (Patient taking differently: Uses as needed.) tezepelumab-ekko (TEZSPIRE) 210 mg/1.91 mL (110 mg/mL) pnijInject 210 mg subcutaneously every 4 weeks.Disp: 1.91 mLRfl: 11 albuterol (PROVENTIL) 2.5 mg /3 mL (0.083 %) nebulizer solutionUse 3 mL via nebulizer every 4 hours as needed for wheezing/shortness of breath.Disp: 36 mLRfl: 2 fexofenadine (GM) 180 mg tabletTake 180 mg by mouth as needed.Disp: Rfl: cetirizine (ZYRTEC) 10 mg tabletTake 10 mg by mouth once daily.Disp: Rfl: albuterol HFA (VENTOLIN HFA) 90 mcg/actuation inhalerInhale 2 Puffs as instructed every 4 hours as needed for wheezing/shortness of breath (and before sexertion / exercise).Disp: 1 EachRfl: 5 acetaminophen 325 mg capTake by mouth as needed.Disp: Rfl: PAST MEDICAL HISTORY Diagnosis Date Asthma Constipation Diarrhea Dyspnea on exertion History of echocardiogram 05/13/2021 EF 60-65% RV systolic pressure 25mmHg R atrial pressure 3mmHg History of stress test 05/13/2021 no ischemic electrocardiogrpahic changes noted pt developed chest pressure ehich resolved in recovery phase average exercise capacity for age baseline htn with a normal BP response to exercise Social History Tobacco Use Smoking status: Never Passive exposure: Never Smokeless tobacco: Never Vaping Use Vaping Use: Never used Substance Use Topics Alcohol use: Not Currently Drug use: No Component Latest Ref Rng AND Units 04/08/2021 WBC 3.70 - 11.00 k/uL 6.80 RBC 3.90 - 5.20 m/uL 4.36 Hemoglobin 11.5 - 15.5 g/dL 13.1 Hematocrit 36.0 - 46.0 % 39.8 MCV 80.0 - 100.0 fL 91.3 MCH 26.0 (more content not included)... [facility] 09-04-2023 Note HNO ID: [id number] Author: Ning Peterson RT(R) Service: ? Author Type: Technologist Type: Progress Notes Filed: 09/04/2023 9:27 AM Note Text: Radiology Service Progress Note PATIENT NAME: Jenny Solomon DATE OF SERVICE: September 04, 2023 TIME: 9:27 AM PATIENT IDENTITY VERIFICATION COMPLETED USING TWO (2) IDENTIFIERS: Name and Date of confirmed by patient verbally. FALL SCREENING: Has the patient had 2 falls in the last year or 1 fall with injury or currently using an Ambulatory Assistive Device (Walker, Cane, Wheelchair, Crutches, etc.)? No PATIENT GENDER DATA: Female. status: : No status: NO. PATIENT RELEVANT IMPLANT DATA REVIEWED: Yes RADIOLOGY DEPARTMENT: MR; Exam(s) Completed: Lower MSK: Hip, bilateral PERIPHERAL IV DATA: Not applicable SIGNED BY: RT Sukhjinder(R) September 04, 2023 9:[address] [facility] 09-03-2023 Note HNO ID: [id number] Author: Bessie Gregg PA-C Service: ? Author Type: Physician Rigger Helper Type: Progress Notes Filed: 09/03/2023 3:59 PM Note Text: Patient: Jenny Solomon PCP: Diane Higuera MD CC: follow up HPI: Jenny Solomon 38 year old obese female non-smoker with PMH significant for severe persistent asthma. Current therapy consists of Tezspire, Advair, albuterol as needed. Stopped Spiriva due to excessive lower extremity cramping. Cramping resolved once she stopped her Spiriva and is currently using it as needed without any side effects. Today, she states approximately a week ago she had increased cough, congestion and SOB. She took Prednisone taper she had on hand and symptoms significantly improved. Daily cough productive of thick, yellow sputum. No hemoptysis. Wheezing at nighttime. Exertional dyspnea if she over does it. No fevers, chills or night sweats. Diarrhea with significant weight loss. Work up at this point negative. Has appointment with GI on September 26, 2023. PAST MEDICAL HISTORY Diagnosis Date Asthma Constipation Diarrhea Dyspnea on exertion History of echocardiogram 05/13/2021 EF 60-65% RV systolic pressure 25mmHg R atrial pressure 3mmHg History of stress test 05/13/2021 no ischemic electrocardiogrpahic changes noted pt developed chest pressure ehich resolved in recovery phase average exercise capacity for age baseline htn with a normal BP response to exercise Allergies: Clindamycin Rash, GI Upset Septra [Other] Rash, GI Upset predniSONE (DELTASONE) 10 mg tabletTake 4 tabs daily x 3 days, then 3 tabs x 3 days, 2 tabs x 3 days, then 1 tab x3 days with food. As directedDisp: 30 tabletRfl: 0 fluticasone-salmeterol (ADVAIR DISKUS) 500-50 mcg/dose dsdvUSE 1 INHALATION BY MOUTH TWICE DAILY - RINSE MOUTH OUT AFTER USEDisp: 180 EachRfl: 3 ondansetron orally disintegrating (ZOFRAN ODT) 4 mg disintegrating tabletTake 1 tablet by mouth every 8 hours as needed for nausea/vomiting.Disp: 21 tabletRfl: 0 loperamide HCl (IMODIUM ORAL)Take by mouth.Disp: Rfl: azelastine 0.1% nasal sprayUse 2 Sprays in each nostril twice daily as needed.Disp: 90 mLRfl: 2 fluticasone (FLONASE) 50 mcg/actuation nasal sprayUse 2 Sprays in each nostril once daily.Disp: 48 mLRfl: 1 montelukast (SINGULAIR) 10 mg tabletTake 1 tablet by mouth daily at bedtime.Disp: 90 tabletRfl: 3 tiotropium bromide (SPIRIVA RESPIMAT) 1.25 mcg/actuation mistINHALE 2 PUFFS BY MOUTH INSTRUCTED ONCE DAILY.Disp: 3 EachRfl: 2 tezepelumab-ekko (TEZSPIRE) 210 mg/1.91 mL (110 mg/mL) pnijInject 210 mg subcutaneously every 4 weeks.Disp: 1.91 mLRfl: 11 albuterol (PROVENTIL) 2.5 mg /3 mL (0.083 %) nebulizer solutionUse 3 mL via nebulizer every 4 hours as needed for wheezing/shortness of breath.Disp: 36 mLRfl: 2 fexofenadine (GM) 180 mg tabletTake 180 mg by mouth as needed.Disp: Rfl: cetirizine (ZYRTEC) 10 mg tabletTake 10 mg by mouth once daily.Disp: Rfl: albuterol HFA (VENTOLIN HFA) 90 mcg/actuation inhalerInhale 2 Puffs as instructed every 4 hours as needed for wheezing/shortness of breath (and before sexertion / exercise).Disp: 1 EachRfl: 5 acetaminophen 325 mg capTake by mouth as needed.Disp: Rfl: Social History Tobacco Use Smoking status: Never Passive exposure: Never Smokeless tobacco: Never Vaping Use Vaping Use: Never used Substance Use Topics Alcohol use: Not Currently Drug use: No Family History Problem Relation Age of Onset other (cerical cancer) Mother Asthma Sister Heart Maternal Grandmother PAST SURGICAL HISTORY Procedure Laterality Date ABDOMINAL SURGERY HX APPENDECTOMY CHOLECYSTECTOMY 09/24/2002 Cholecystectomy COLONOSCOPY 07/23/2023 EGD 07/23/2023 LAPS ABD PRTMANDOMENTUM DX W/WO SPEC BR/WA SPX 11/22/2008 Laparoscopy and DANDC I reviewed the past medical history, family history, social history and surgical history with changes noted above and updated in EMR. IMMUNIZATIONS Prevnar - 05/2022 Pneumovax 23 - xx Influenza - xx COVID-19 - most recent 06/2022 ROS: CONSTITUTIONAL: No fevers, chills, nightsweats, unintended weight loss. Some fatigue HEENT: Denies nasal congestion/sinus symptoms, problematic allergy problems. CARDIOVASCULAR: No chest pain, palpitations, orthopnea, PND, edema. PULM: See HPI GI: No dysphagia/odynophagia, problematic reflux. Persistent diarrhea. NEURO: No new balance problems, peripheral weakness/paresthesias or numbness of concern. MUSC-SKEL: Left hip pain PSY: No concerns regarding depression, anxiety INTEGUMENTARY: No new skin changes, rashes, eczema PHYSICAL EXAMINATION: BP 128/84 Pulse (!) 58 Resp 14 Wt 78.9 kg (174 lb) LMP 07/16/2023 SpO2 100% BMI 26.46 kg/m? Gen: No acute distress. Cooperative with examination. HEENT: Normocephalic. Sclera, conjunctiva clear. Oral hygeine and dentition good. No thrush. Resp: No stridor, accessory respiratory (more content not included)... [facility] 09-03-2023 History of Present illness Narrative Images from the original note were not included. Patient: Jenny Solomon PCP: Diane Higuera MD CC: follow up HPI: Jenny Solomon 38 year old obese female non-smoker with PMH significant for severe persistent asthma. Current therapy consists of Tezspire, Advair, albuterol as needed. Stopped Spiriva due to excessive lower extremity cramping. Cramping resolved once she stopped her Spiriva and is currently using it as needed without any side effects. Today, she states approximately a week ago she had increased cough, congestion and SOB. She took Prednisone taper she had on hand and symptoms significantly improved. Daily cough productive of thick, yellow sputum. No hemoptysis. Wheezing at nighttime. Exertional dyspnea if she over does it. No fevers, chills or night sweats. Diarrhea with significant weight loss. Work up at this point negative. Has appointment with GI on September 26, 2023. PAST MEDICAL HISTORY Diagnosis Date Asthma Constipation Diarrhea Dyspnea on exertion History of echocardiogram 05/13/2021 EF 60-65% RV systolic pressure 25mmHg R atrial pressure 3mmHg History of stress test 05/13/2021 no ischemic electrocardiogrpahic changes noted pt developed chest pressure ehich resolved in recovery phase average exercise capacity for age baseline htn with a normal BP response to exercise Allergies: Clindamycin Rash, GI Upset Septra [Other] Rash, GI Upset predniSONE (DELTASONE) 10 mg tablet^Take 4 tabs daily x 3 days, then 3 tabs x 3 days, 2 tabs x 3 days, then 1 tab x3 days with food. As directed^Disp: 30 tablet^Rfl: 0 fluticasone-salmeterol (ADVAIR DISKUS) 500-50 mcg/dose dsdv^USE 1 INHALATION BY MOUTH TWICE DAILY - RINSE MOUTH OUT AFTER USE^Disp: 180 Each^Rfl: 3 ondansetron orally disintegrating (ZOFRAN ODT) 4 mg disintegrating tablet^Take 1 tablet by mouth every 8 hours as needed for nausea/vomiting.^Disp: 21 tablet^Rfl: 0 loperamide HCl (IMODIUM ORAL)^Take by mouth.^Disp: ^Rfl: azelastine 0.1% nasal spray^Use 2 Sprays in each nostril twice daily as needed.^Disp: 90 mL^Rfl: 2 fluticasone (FLONASE) 50 mcg/actuation nasal spray^Use 2 Sprays in each nostril once daily.^Disp: 48 mL^Rfl: 1 montelukast (SINGULAIR) 10 mg tablet^Take 1 tablet by mouth daily at bedtime.^Disp: 90 tablet^Rfl: 3 tiotropium bromide (SPIRIVA RESPIMAT) 1.25 mcg/actuation mist^INHALE 2 PUFFS BY MOUTH INSTRUCTED ONCE DAILY.^Disp: 3 Each^Rfl: 2 tezepelumab-ekko (TEZSPIRE) 210 mg/1.91 mL (110 mg/mL) pnij^Inject 210 mg subcutaneously every 4 weeks.^Disp: 1.91 mL^Rfl: 11 albuterol (PROVENTIL) 2.5 mg /3 mL (0.083 %) nebulizer solution^Use 3 mL via nebulizer every 4 hours as needed for wheezing/shortness of breath.^Disp: 36 mL^Rfl: 2 fexofenadine (GM) 180 mg tablet^Take 180 mg by mouth as needed.^Disp: ^Rfl: cetirizine (ZYRTEC) 10 mg tablet^Take 10 mg by mouth once daily.^Disp: ^Rfl: albuterol HFA (VENTOLIN HFA) 90 mcg/actuation inhaler^Inhale 2 Puffs as instructed every 4 hours as needed for wheezing/shortness of breath (and before sexertion / exercise).^Disp: 1 Each^Rfl: 5 acetaminophen 325 mg cap^Take by mouth as needed.^Disp: ^Rfl: Social History Tobacco Use Smoking status: Never Passive exposure: Never Smokeless tobacco: Never Vaping Use Vaping Use: Never used Substance Use Topics Alcohol use: Not Currently Drug use: No Family History Problem Relation Age of Onset other (cerical cancer) Mother Asthma Sister Heart Maternal Grandmother PAST SURGICAL HISTORY Procedure Laterality Date ABDOMINAL SURGERY HX APPENDECTOMY CHOLECYSTECTOMY 09/24/2002 Cholecystectomy COLONOSCOPY 07/23/2023 EGD 07/23/2023 LAPS ABD PRTM&OMENTUM DX W/WO SPEC BR/WA SPX 11/22/2008 Laparoscopy and D&C I reviewed the past medical history, family history, social history and surgical history with changes noted above and updated in EMR. IMMUNIZATIONS Prevnar - 05/2022 Pneumovax 23 - xx Influenza - xx COVID-19 - most recent 06/2022 ROS: CONSTITUTIONAL: No fevers, chills, nightsweats, unintended weight loss. Some fatigue HEENT: Denies nasal congestion/sinus symptoms, problematic allergy problems. CARDIOVASCULAR: No chest pain, palpitations, orthopnea, PND, edema. PULM: See HPI GI: No dysphagia/odynophagia, problematic reflux. Persistent diarrhea. NEURO: No new balance problems, peripheral weakness/paresthesias or numbness of concern. MUSC-SKEL: Left hip pain PSY: No concerns regarding depression, anxiety INTEGUMENTARY: No new skin changes, rashes, eczema PHYSICAL EXAMINATION: BP 128/84 Pulse (!) 58 Resp 14 Wt 78.9 kg (174 lb) LMP 07/16/2023 SpO2 100% BMI 26.46 kg/m Gen: No acute distress. Cooperative with examination. HEENT: Normocephalic. Sclera, conjunctiva clear. Oral hygeine and dentition good. No thrush. Resp: No stridor, accessory respiratory muscle use, supra-sternal or intercostal retractions. No wheezes, crackles. CV: Regular rythm. Heart tones normal. Radial pulses normal. MSK: No kyphoscoliosis. Ext: Warm and well perfused. No clubbing, cyanosis, edema. Skin: No rash, ecchymoses. Neuro: Mental status normal. Affect normal. No tremor. DATA: PFT 12/2022: Review of spirometry shows no air flow obstruction Labs Component Latest Ref Rng & Units 06/16/2023 WSR 0 - 20 mm/hr 5 CRP <0.9 mg/dL <0.3 Component Latest Ref Rng & Units 05/04/2023 CCP Antibody IgG Qualitative Negative Negative CCP Antibody, IgG <20 Units <15 Rheumatoid Factor <16 IU/mL <10 CRP <0.9 mg/dL <0.3 ASSESSMENT/PLAN: 1. Severe persistent asthma without complication - ICD9: 493.90, ICD10: J45.50 (primary diagnosis) Continue Advair with as needed Albuterol. Using Spiriva as needed. Continue Trezspire injections per Dr. Betancourt. 2. Pain in joint, multiple sites - ICD9: 719.49, ICD10: M25.50 Severe left hip pain in female less than 50 years of age suspicious for possible rheumatoid arthritis but patient also at risk for avascular necrosis of the hip due to her past steroid usage Screening CCP, rheumatoid factor and CRP normal MRI hip scheduled for tomorrow. Portions of this documentation were copied and pasted from previous office visit notes in order to provide a cohesive continuity of the history. The note has been reviewed and edited and updated as necessary. Bessie Gregg PA-C documented in this encounter [facility] 08-28-2023 Miscellaneous Notes MONIKA: 05/04/23 Patient phones requesting refills as follows: Requested Prescriptions Pending Prescriptions Disp Refills predniSONE (DELTASONE) 10 mg tablet 30 tablet 0 Sig: Take 4 tabs daily x 3 days, then 3 tabs x 3 days, 2 tabs x 3 days, then 1 tab x3 days with food. As directed Please review and advise. Rubia Cheema LPN documented in this encounter [facility] 08-20-2023 Miscellaneous Notes The following approved medication requests have been transmitted electronically. Requested Prescriptions Signed Prescriptions Disp Refills fluticasone-salmeterol (ADVAIR DISKUS) 500-50 mcg/dose dsdv 180 Each 3 Sig: USE 1 INHALATION BY MOUTH TWICE DAILY - RINSE MOUTH OUT AFTER USE Authorizing Provider: SAM BETANCOURT MD Patient phones requesting refills as follows: Requested Prescriptions Pending Prescriptions Disp Refills fluticasone-salmeterol (ADVAIR DISKUS) 500-50 mcg/dose dsdv [Pharmacy Med Name: Advair Diskus 500-50 MCG/ACT Inhalation Aerosol Powder Breath Activated] 180 Each 3 Sig: USE 1 INHALATION BY MOUTH TWICE DAILY - RINSE MOUTH OUT AFTER USE MONIKA 05/15/23 Please review and advise. Alba Barrett RN documented in this encounter [facility] 08-07-2023 Miscellaneous Notes I placed the GI referral for her, can we fax to the office for Dr. Radha Alcantara in [place]/ Dr. Vlad Fuller in [place] and let patient know once sent. documented in this encounter [facility] 08-03-2023 Note HNO ID: [id number] Author: Tiago Leblanc MD Service: ? Author Type: Physician Type: Progress Notes Filed: 08/03/2023 8:50 AM Note Text: Subjective: Patient still feeling nauseated. Her upper and lower scope were essentially entirely negative although my biopsies did not show any signs of an issue. She has no celiac sprue random colon biopsies were all negative for chronic lymphocytic colitis. Objective:Blood pressure 128/80, pulse 89, temperature 36.9 ?C (98.4 ?F), temperature source Temporal, resp. rate 16, weight 83.3 kg (183 lb 9.6 oz), last menstrual period 07/16/2023, SpO2 100 %. Abdomen is soft there is some diffuse tenderness but there is no rebound guarding or peritoneal signs. Assessment:Diarrhea, unspecified type (primary encounter diagnosis) Nausea Plan: Patient states that she has been on proton pump inhibitors in the past which really have not done anything for her. She also states that they did make her diarrhea symptoms worse. Her esophagus really did look normal and her stomach did have some redness but I do not think it was really pathologic. I am going to refer her back to her primary care physician. I think her medications will need to be evaluated to see if they are contributing to her nausea. I did not add or represcribed omeprazole but I do not think there is anything wrong with trying this again to see if it does anything for her epigastric discomfort I do not think adding Carafate would have be of any benefit at this time given the fact that there were no ulcers. [facility] 08-03-2023 History of Present illness Narrative Subjective: Patient still feeling nauseated. Her upper and lower scope were essentially entirely negative although my biopsies did not show any signs of an issue. She has no celiac sprue random colon biopsies were all negative for chronic lymphocytic colitis. Objective:Blood pressure 128/80, pulse 89, temperature 36.9 C (98.4 F), temperature source Temporal, resp. rate 16, weight 83.3 kg (183 lb 9.6 oz), last menstrual period 07/16/2023, SpO2 100 %. Abdomen is soft there is some diffuse tenderness but there is no rebound guarding or peritoneal signs. Assessment:Diarrhea, unspecified type (primary encounter diagnosis) Nausea Plan: Patient states that she has been on proton pump inhibitors in the past which really have not done anything for her. She also states that they did make her diarrhea symptoms worse. Her esophagus really did look normal and her stomach did have some redness but I do not think it was really pathologic. I am going to refer her back to her primary care physician. I think her medications will need to be evaluated to see if they are contributing to her nausea. I did not add or represcribed omeprazole but I do not think there is anything wrong with trying this again to see if it does anything for her epigastric discomfort I do not think adding Carafate would have be of any benefit at this time given the fact that there were no ulcers. documented in this encounter [facility] 07-09-2023 Miscellaneous Notes July 09, 2023 PID: [id number] Jenny Solomon [address] [place] [id number] Dear Ms. Solomon, Your recent breast imaging exam on 07/06/2023 showed a possible finding that requires additional imaging studies for a complete evaluation. Most such findings are probably benign (not cancer). If you have a healthcare provider who ordered/prescribed your screening mammogram: Please call [phone] or EXT: [phone] to schedule an appointment for your additional imaging (if you have not already done so). If you DO NOT have a healthcare provider (ie you did not have an order/prescription for your screening mammogram): Please call to schedule an appointment for your additional imaging (if you have not already done so). You must have an order/prescription from your physician when calling to schedule your appointment. If your order/prescription is not electronic, you must bring the hard copy with you on the day of your exam to avoid delays. Your imaging studies and reports are kept on file at [facility] as part of your permanent medical record, and are available for your continuing care. Thank you for allowing us to help in meeting your health care needs. Sincerely, Dr. French Interpreting Radiologist [facility] (Additional imaging) documented in this encounter [facility] 07-06-2023 Note HNO ID: [id number] Author: Ilsa Farrar Mammo Tech Service: ? Author Type: Procurement Professional Type: Progress Notes Filed: 07/06/2023 10:03 AM Note Text: Radiology Service Progress Note PATIENT NAME: Jenny Solomon DATE OF SERVICE: July 06, 2023 TIME: 9:31 AM PATIENT IDENTITY VERIFICATION COMPLETED USING TWO (2) IDENTIFIERS: Name and Date of confirmed by patient verbally. FALL SCREENING: Has the patient had 2 falls in the last year or 1 fall with injury or currently using an Ambulatory Assistive Device (Walker, Cane, Wheelchair, Crutches, etc.)? No PATIENT GENDER DATA: Female. status: : No status: NO. PATIENT RELEVANT IMPLANT DATA REVIEWED: Not Applicable RADIOLOGY DEPARTMENT: Mammography PERIPHERAL IV DATA: Not applicable SIGNED BY: Prince Palmer July 06, 2023 9:[address] [facility] 06-26-2023 Note HNO ID: [id number] Author: Tiago Leblanc MD Service: ? Author Type: Physician Type: Progress Notes Filed: 07/05/2023 1:02 PM Note Text: HISTORY AND PHYSICAL Jenny Solomon 1985 REFERRING PHYSICIAN: No ref. provider found CHIEF COMPLAINT: Consult (colonoscopy) HPI: The patient is a 37 year old female referred for endoscopy. Jenny Solomon is a 37 year old year old lady here today for [facility] follow up appointment for review of medical conditions. Noted that still has a lot of mucus. Passes thin stools when stool not hard. Gets watery stools sometimes--would at and in half an hour would have BM. Still has urgency after eating. no more watery stools now--that was in the beginning 3 weeks ago. Was having chills with the nausea then. No fevers. Noted nausea started a week before the diarrhea. No vomiting. Has hemorrhoids with the bleeding when has hard stools. Always feels like needs to have BM since started with diarrhea. Weight loss started since started with diarrhea. Noted 2 prior episodes of bowel issues and saw GI. Colonoscopy not done yet. Pumpkin does help. The patient is being seen by me today at the request of Dr. Diane Higuera MD for my opinion and advice regarding Diarrhea, unspecified type (primary encounter diagnosis) Nausea Epigastric pain Rectal bleeding. PAST MEDICAL HISTORY Diagnosis Date Asthma Constipation Diarrhea Dyspnea on exertion History of echocardiogram 05/13/2021 EF 60-65% RV systolic pressure 25mmHg R atrial pressure 3mmHg History of stress test 05/13/2021 no ischemic electrocardiogrpahic changes noted pt developed chest pressure ehich resolved in recovery phase average exercise capacity for age baseline htn with a normal BP response to exercise PAST SURGICAL HISTORY Procedure Laterality Date APPENDECTOMY CHOLECYSTECTOMY 09/24/2002 Cholecystectomy LAPS ABD PRTMANDOMENTUM DX W/WO SPEC BR/WA SPX 11/22/2008 Laparoscopy and DANDC Current Outpatient Medications Medication Sig ondansetron orally disintegrating (ZOFRAN ODT) 4 mg disintegrating tablet Take 1 tablet by mouth every 8 hours as needed for nausea/vomiting. azelastine 0.1% nasal spray Use 2 Sprays in each nostril twice daily as needed. fluticasone (FLONASE) 50 mcg/actuation nasal spray Use 2 Sprays in each nostril once daily. montelukast (SINGULAIR) 10 mg tablet Take 1 tablet by mouth daily at bedtime. tiotropium bromide (SPIRIVA RESPIMAT) 1.25 mcg/actuation mist INHALE 2 PUFFS BY MOUTH INSTRUCTED ONCE DAILY. fluticasone-salmeterol (ADVAIR DISKUS) 500-50 mcg/dose dsdv One inhalation twice a day. Rinse mouth out after use. tezepelumab-ekko (TEZSPIRE) 210 mg/1.91 mL (110 mg/mL) pnij Inject 210 mg subcutaneously every 4 weeks. albuterol (PROVENTIL) 2.5 mg /3 mL (0.083 %) nebulizer solution Use 3 mL via nebulizer every 4 hours as needed for wheezing/shortness of breath. fexofenadine (GM) 180 mg tablet Take 180 mg by mouth as needed. cetirizine (ZYRTEC) 10 mg tablet Take 10 mg by mouth once daily. albuterol HFA (VENTOLIN HFA) 90 mcg/actuation inhaler Inhale 2 Puffs as instructed every 4 hours as needed for wheezing/shortness of breath (and before sexertion / exercise). acetaminophen 325 mg cap Take by mouth as needed. Current Facility-Administered Medications Medication Dose Route Frequency tezepelumab-ekko 210 mg subcutaneous injection (TEZSPIRE) 210 mg SUBCUTANEOUS q 4 WEEKS ALLERGIES: Clindamycin and Septra [Other] PERSONAL HISTORY: Social History Tobacco Use Smoking status: Never Passive exposure: Never Smokeless tobacco: Never Vaping Use Vaping Use: Never used Substance Use Topics Alcohol use: Not Currently Drug use: No FAMILY HISTORY: FAMILY HISTORY Problem Relation Age of Onset other (cerical cancer) Mother Asthma Sister Heart Maternal Grandmother REVIEW OF SYMPTOMS: The review of systems data was entered by the nurse and reviewed by me Nursing Notes: Ivis Srivastava LPN 06/26/2023 4:04 PM Signed REVIEW OF SYSTEMS: General: The patient NOTES fatigue, denies weight loss, denies weight gain, denies feeling hot, and denies feelings of cold. Eyes: The patient denies glaucoma, denies eye injury/surgery, wears glasses or contacts. Ear/Nose/Throat: The patient denies allergies, NOTES hayfever, denies ear infections, and denies bloody noses. Cardiovascular: The patient denies chest pain, denies heart disease, denies high blood pressure,denies cardiac stent, denies prior heart attack, denies irregular heart beat, denies high cholesterol, denies poor circulation, denies heart failure, other cardiac issues, denies claudication, denies cold feet, denies peripheral arterial stent. Respiratory: The patient denies tuberculosis, denies pneumonia, NOTES frequent cough, denies pulmonary embolism, NOTES shortness of breath, and denies coughing up blood, NOTES ASTHMA. Gastrointestinal: The patient d (more content not included)... [facility] 06-26-2023 Nurse Note REVIEW OF SYSTEMS: General: The patient NOTES fatigue, denies weight loss, denies weight gain, denies feeling hot, and denies feelings of cold. Eyes: The patient denies glaucoma, denies eye injury/surgery, wears glasses or contacts. Ear/Nose/Throat: The patient denies allergies, NOTES hayfever, denies ear infections, and denies bloody noses. Cardiovascular: The patient denies chest pain, denies heart disease, denies high blood pressure,denies cardiac stent, denies prior heart attack, denies irregular heart beat, denies high cholesterol, denies poor circulation, denies heart failure, other cardiac issues, denies claudication, denies cold feet, denies peripheral arterial stent. Respiratory: The patient denies tuberculosis, denies pneumonia, NOTES frequent cough, denies pulmonary embolism, NOTES shortness of breath, and denies coughing up blood, NOTES ASTHMA. Gastrointestinal: The patient denies difficulty swallowing, denies acid reflux, denies ulcers, denies vomiting, denies jaundice/hepatitis, denies gallbladder problems, denies black or tarry stools, NOTES hemorrhoids, NOTES bleeding from rectum, denies diverticulitis, NOTES constipation, NOTES diarrhea, denies loss of stool control, and denies hernias. Kidney/Bladder: The patient denies kidney stones, denies urine infections, and denies bloody urine. Skin: The patient denies a history of skin cancer, denies bleeding/changing moles, and denies a history of skin rash. Neurologic: The patient denies a history of epilepsy/convulsions, denies headaches, denies head/spinal injuries, and denies stroke/TIA. Psychiatric: The patient denies psychiatric medications, denies depression, and denies voices, denies substance abuse. Endocrine: The patient denies thyroid disorders, denies diabetes, and denies hormonal problems. Hematologic: The patient denies a history of bruising, denies bleeding, and denies anemia, denies blood clots. Infections: The patient denies a history of measles and mumps, denies rheumatic fever, and denies sexually transmitted diseases. Musculoskeletal: The patient denies back pain/injury, denies back problems, denies sciatica, denies knee/foot trouble, denies arthritis, or denies gout. When was patient's last Mammogram screening? N/A Last Colonoscopy: N/A Ivis Srivastava LPN documented in this encounter [facility] 06-26-2023 Instructions Tiago Leblanc MD - 06/26/2023 3:55 PM EDT Images from the original note were not included. Bowel Preparation Instructions for: Golytely, Nulytely, Trilyte or Colyte (polyethylene glycol 3350 and electrolytes) IF YOU DO NOT FOLLOW THESE DIRECTIONS, YOUR COLONOSCOPY WILL BE CANCELLED. Turner Instructions: Your bowel must be empty so that your doctor can clearly view your colon. Follow all of the instructions in this handout EXACTLY as they are written. Do NOT eat any solid food the ENTIRE day before your colonoscopy. Drink only clear liquids. Buy your bowel preparation at least 5 days before your colonoscopy. TRANSPORTATION on the Day of Your Exam A responsible person MUST be present with you at [facility] prior to your colonoscopy and REMAIN in the endoscopy area until you are discharged. You are NOT ALLOWED to drive, take a taxi or bus, or leave the Endoscopy Center ALONE. If you do not have a responsible trailer driver (family member or friend) with you to take you home, your exam cannot be done with sedation and will be cancelled. Please bring a list of all of your current medications, including any Over-the Counter medications with you. Medications If you take insulin, diabetic medications or blood thinners such as Coumadin (warfarin), Plavix (clopidogrel), Ticlid (ticlopidine hydrochloride), Agrylin (anagrelide), Xarelto (Rivaroxaban), Pradaxa (Dabigatran), Eliquis (Apixaban), and Effient (Prasugrel). You MUST call the doctors who orders those medicines for instructions on altering the dosage before your colonoscopy. All other medications should be taken the day of the exam with a sip of water including ASPIRIN. Five (5) Days Before Your Colonoscopy Do NOT take medicines that stop diarrhea - such as Imodium, Kaopectate, or Pepto Bismol. Do NOT take fiber supplements - such as Metamucil, Citrucel, or Perdiem. Do NOT take products that contain iron - such as multi-vitamins (the label lists what is in the products). Do NOT take Vitamin E. Buy the prescription bowel preparation solution at your local pharmacy or drugstore pharmacy. 1 08/2019 Bowel Preparation Instructions for: Golytely, Nulytely, Trilyte or Colyte (polyethylene glycol 3350 and electrolytes) Three (3) Days Before Your Colonoscopy Do NOT eat high-fiber foods - such as popcorn, beans, seeds (flax, sunflower, quinoa), multigrain bread, nuts, salad/vegetables, or fresh and dried fruit. One (1) Day Before Your Colonoscopy Only drink clear liquids the ENTIRE DAY before your colonoscopy. Do NOT eat any solid foods. Drink at least 8 ounces of clear liquids every hour after waking up. The clear liquids you can drink include: Clear Liquid (NO RED LIQUIDS) DO NOT DRINK Gatorade, Pedialyte or Powerade Clear broth or bouillon Coffee or tea (no milk or non-dairy creamer) Carbonated and non-carbonated soft drinks Dilshad-Aid or other fruit flavored drinks Strained fruit juices (no pulp) Jell-O, popsicles, hard candy Water Alcohol Milk or non-dairy creamers Noodles or vegetables in soup Juice with pulp Liquid you cannot see through Do not use tobacco/vaping products The bowel preparation solution will be consumed in two parts. Mix the solution the evening before your colonoscopy and refrigerate before drinking. You may add the flavor pack that came with the bowel preparation. Do NOT add ice, sugar or any other flavorings to the solution. Part 1 At 6:00 PM - Evening before your colonoscopy Drink an 8-oz glass of bowel preparation every 10 minutes for a total of 8 glasses. You may continue to drink clear liquids until midnight. Part 2 On the day of your colonoscopy you may drink clear liquids up to (three) 3 hours before your procedure. 4 1/2 hours before your colonoscopy Drink an 8-oz glass of bowel preparation every 10 minutes for a total of 8 glasses. Fifteen (15) minutes later, drink an 8-oz glass of clear liquids every 15 minutes for a total of 2 glasses. You may continue to drink clear liquids up to (three) 3 hours before your exam. 2 08/2019 documented in this encounter [facility] 06-26-2023 History of Present illness Narrative HISTORY AND PHYSICAL Jenny Solomon 1985 REFERRING PHYSICIAN: No ref. provider found CHIEF COMPLAINT: Consult (colonoscopy) HPI: The patient is a 37 year old female referred for endoscopy. Jenny Solomon is a 37 year old year old lady here today for [facility] follow up appointment for review of medical conditions. Noted that still has a lot of mucus. Passes thin stools when stool not hard. Gets watery stools sometimes--would at and in half an hour would have BM. Still has urgency after eating. no more watery stools now--that was in the beginning 3 weeks ago. Was having chills with the nausea then. No fevers. Noted nausea started a week before the diarrhea. No vomiting. Has hemorrhoids with the bleeding when has hard stools. Always feels like needs to have BM since started with diarrhea. Weight loss started since started with diarrhea. Noted 2 prior episodes of bowel issues and saw GI. Colonoscopy not done yet. Pumpkin does help. The patient is being seen by me today at the request of Dr. Diane Higuera MD for my opinion and advice regarding Diarrhea, unspecified type (primary encounter diagnosis) Nausea Epigastric pain Rectal bleeding. PAST MEDICAL HISTORY Diagnosis Date Asthma Constipation Diarrhea Dyspnea on exertion History of echocardiogram 05/13/2021 EF 60-65% RV systolic pressure 25mmHg R atrial pressure 3mmHg History of stress test 05/13/2021 no ischemic electrocardiogrpahic changes noted pt developed chest pressure ehich resolved in recovery phase average exercise capacity for age baseline htn with a normal BP response to exercise PAST SURGICAL HISTORY Procedure Laterality Date APPENDECTOMY CHOLECYSTECTOMY 09/24/2002 Cholecystectomy LAPS ABD PRTM&OMENTUM DX W/WO SPEC BR/WA SPX 11/22/2008 Laparoscopy and D&C Current Outpatient Medications Medication Sig ondansetron orally disintegrating (ZOFRAN ODT) 4 mg disintegrating tablet Take 1 tablet by mouth every 8 hours as needed for nausea/vomiting. azelastine 0.1% nasal spray Use 2 Sprays in each nostril twice daily as needed. fluticasone (FLONASE) 50 mcg/actuation nasal spray Use 2 Sprays in each nostril once daily. montelukast (SINGULAIR) 10 mg tablet Take 1 tablet by mouth daily at bedtime. tiotropium bromide (SPIRIVA RESPIMAT) 1.25 mcg/actuation mist INHALE 2 PUFFS BY MOUTH INSTRUCTED ONCE DAILY. fluticasone-salmeterol (ADVAIR DISKUS) 500-50 mcg/dose dsdv One inhalation twice a day. Rinse mouth out after use. tezepelumab-ekko (TEZSPIRE) 210 mg/1.91 mL (110 mg/mL) pnij Inject 210 mg subcutaneously every 4 weeks. albuterol (PROVENTIL) 2.5 mg /3 mL (0.083 %) nebulizer solution Use 3 mL via nebulizer every 4 hours as needed for wheezing/shortness of breath. fexofenadine (GM) 180 mg tablet Take 180 mg by mouth as needed. cetirizine (ZYRTEC) 10 mg tablet Take 10 mg by mouth once daily. albuterol HFA (VENTOLIN HFA) 90 mcg/actuation inhaler Inhale 2 Puffs as instructed every 4 hours as needed for wheezing/shortness of breath (and before sexertion / exercise). acetaminophen 325 mg cap Take by mouth as needed. Current Facility-Administered Medications Medication Dose Route Frequency tezepelumab-ekko 210 mg subcutaneous injection (TEZSPIRE) 210 mg SUBCUTANEOUS q 4 WEEKS ALLERGIES: Clindamycin and Septra [Other] PERSONAL HISTORY: Social History Tobacco Use Smoking status: Never Passive exposure: Never Smokeless tobacco: Never Vaping Use Vaping Use: Never used Substance Use Topics Alcohol use: Not Currently Drug use: No FAMILY HISTORY: FAMILY HISTORY Problem Relation Age of Onset other (cerical cancer) Mother Asthma Sister Heart Maternal Grandmother REVIEW OF SYMPTOMS: The review of systems data was entered by the nurse and reviewed by mt Nursing Notes: Ivis Srivastava LPN 06/26/2023 4:04 PM Signed REVIEW OF SYSTEMS: General: The patient NOTES fatigue, denies weight loss, denies weight gain, denies feeling hot, and denies feelings of cold. Eyes: The patient denies glaucoma, denies eye injury/surgery, wears glasses or contacts. Ear/Nose/Throat: The patient denies allergies, NOTES hayfever, denies ear infections, and denies bloody noses. Cardiovascular: The patient denies chest pain, denies heart disease, denies high blood pressure,denies cardiac stent, denies prior heart attack, denies irregular heart beat, denies high cholesterol, denies poor circulation, denies heart failure, other cardiac issues, denies claudication, denies cold feet, denies peripheral arterial stent. Respiratory: The patient denies tuberculosis, denies pneumonia, NOTES frequent cough, denies pulmonary embolism, NOTES shortness of breath, and denies coughing up blood, NOTES ASTHMA. Gastrointestinal: The patient denies difficulty swallowing, denies acid reflux, denies ulcers, denies vomiting, denies jaundice/hepatitis, denies gallbladder problems, denies black or tarry stools, NOTES hemorrhoids, NOTES bleeding from rectum, denies diverticulitis, NOTES constipation, NOTES diarrhea, denies loss of stool control, and denies hernias. Kidney/Bladder: The patient denies kidney stones, denies urine infections, and denies bloody urine. Skin: The patient denies a history of skin cancer, denies bleeding/changing moles, and denies a history of skin rash. Neurologic: The patient denies a history of epilepsy/convulsions, denies headaches, denies head/spinal injuries, and denies stroke/TIA. Psychiatric: The patient denies psychiatric medications, denies depression, and denies voices, denies substance abuse. Endocrine: The patient denies thyroid disorders, denies diabetes, and denies hormonal problems. Hematologic: The patient denies a history of bruising, denies bleeding, and denies anemia, denies blood clots. Infections: The patient denies a history of measles and mumps, denies rheumatic fever, and denies sexually transmitted diseases. Musculoskeletal: The patient denies back pain/injury, denies back problems, denies sciatica, denies knee/foot trouble, denies arthritis, or denies gout. When was patient's last Mammogram screening? N/A Last Colonoscopy: N/A Ivis Srivastava LPN PHYSICAL EXAMINATION: General: The patient is 37 year old female, well nourished, well hydrated in no acute distress. The patient is oriented to time, place, and person. VITALS: Last menstrual period 05/27/2023. There is no height or weight on file to calculate BMI. HEENT: Normal cephalic, ataumatic, pupils are equally round, sclera are anicteric, mucous membranes are moist, oropharynx is clear. Neck has no masses, asymmetry or lymphadenopathy. Thyroid is unremarkable. Respiratory: Clear to auscultation and percussion. Normal respiratory excursion and pattern. Cardiac: Examination is regular rate and rhythm. Abdominal exam: Soft, nontender, with no palpable masses. No hepatosplenomegaly. No palpable hernias. Rectal exam: exam deferred Extremities: no clubbing, cyanosis or edema. No adenopathy. Other: LABORATORY VALUES: As Noted RADIOLOGIC STUDIES: As Noted Assessment IMPRESSION: Diarrhea, unspecified type (primary encounter diagnosis) Nausea Epigastric pain Rectal bleeding PLAN: I plan to perform upper and lower endoscopy. We discussed the risks and benefits of the planned endoscopy. I have informed the patient that complications can occur including failure to complete the endoscopy and perforation. The patient had the opportunity to ask questions concerning the planned endoscopy. My staff has also explained the procedure to the patient in understandable terms and has given the patient printed material concerning the procedure. The patient freely consents to surgery. I plan to use golytely bowel preparation for endoscopy Diagnoses: (R19.7) Diarrhea, unspecified type (primary encounter diagnosis) (R11.0) Nausea My findings have been communicated to Dr. Diane Higuera MD via shared medical record. This note will be forwarded to Dr. Diane Higuera MD. Return to Clinic: The patient is instructed to follow-up with me 1 week post operatively. Tiago Leblanc III, MD documented in this encounter [facility] 06-16-2023 Note HNO ID: [id number] Author: Diane Higuera MD Service: ? Author Type: Physician Type: Progress Notes Filed: 07/13/2023 11:39 PM Note Text: This note was created using Total Immersion[employer]. Subjective Jenny Solomon is a 37 year old female. Patient presents with: Follow Up: urgent care x 3 weeks nausea, diarrhea then constipation with bright red blood and mucous, always feels like has to go to bathroom SUBJECTIVE: Jenny Solomon is a 37 year old year old lady here today for [facility] follow up appointment for review of medical conditions. Noted that still has a lot of mucus. Passes thin stools when stool not hard. Gets watery stools sometimes--would at and in half an hour would have BM. Still has urgency after eating. no more watery stools now--that was in the beginning 3 weeks ago. Was having chills with the nausea then. No fevers. Noted nausea started a week before the diarrhea. No vomiting. Has hemorrhoids with the bleeding when has hard stools. Always feels like needs to have BM since started with diarrhea. Weight loss started since started with diarrhea. Noted 2 prior episodes of bowel issues and saw GI. Colonoscopy not done yet. Pumpkin does help. PAST MEDICAL HISTORY Diagnosis Date Asthma Constipation Diarrhea Dyspnea on exertion History of echocardiogram 05/13/2021 EF 60-65% RV systolic pressure 25mmHg R atrial pressure 3mmHg History of stress test 05/13/2021 no ischemic electrocardiogrpahic changes noted pt developed chest pressure ehich resolved in recovery phase average exercise capacity for age baseline htn with a normal BP response to exercise Current Outpatient Medications Medication Sig azelastine 0.1% nasal spray Use 2 Sprays in each nostril twice daily as needed. fluticasone (FLONASE) 50 mcg/actuation nasal spray Use 2 Sprays in each nostril once daily. montelukast (SINGULAIR) 10 mg tablet Take 1 tablet by mouth daily at bedtime. tiotropium bromide (SPIRIVA RESPIMAT) 1.25 mcg/actuation mist INHALE 2 PUFFS BY MOUTH INSTRUCTED ONCE DAILY. fluticasone-salmeterol (ADVAIR DISKUS) 500-50 mcg/dose dsdv One inhalation twice a day. Rinse mouth out after use. tezepelumab-ekko (TEZSPIRE) 210 mg/1.91 mL (110 mg/mL) pnij Inject 210 mg subcutaneously every 4 weeks. albuterol (PROVENTIL) 2.5 mg /3 mL (0.083 %) nebulizer solution Use 3 mL via nebulizer every 4 hours as needed for wheezing/shortness of breath. fexofenadine (GM) 180 mg tablet Take 180 mg by mouth as needed. cetirizine (ZYRTEC) 10 mg tablet Take 10 mg by mouth once daily. albuterol HFA (VENTOLIN HFA) 90 mcg/actuation inhaler Inhale 2 Puffs as instructed every 4 hours as needed for wheezing/shortness of breath (and before sexertion / exercise). acetaminophen 325 mg cap Take by mouth as needed. Current Facility-Administered Medications Medication Dose Route Frequency tezepelumab-ekko 210 mg subcutaneous injection (TEZSPIRE) 210 mg SUBCUTANEOUS q 4 WEEKS Review of Systems Objective BP 122/76 (BP Site: Right Arm, BP Position: Sitting, BP Cuff Size: Large Adult) Pulse 79 Temp 36.8 ?C (98.3 ?F) Resp 12 Ht 165.1 cm (5' 5 ) Wt 91.6 kg (202 lb) LMP 05/27/2023 SpO2 100% BMI 33.61 kg/m? Physical Exam Component Latest Ref Rng AND Units 05/30/2023 05/31/2023 Shigella spp./Enteroinvasive E.coli DNA Not Detected Not detected Campylobacter jejuni/coli DNA Not Detected Not detected Shiga toxin-producing gene(s) Not Detected Not detected Salmonella spp. DNA Not Detected Not detected C. difficile PCR Negative for C. difficile toxin by PCR Negative for C. difficile toxin by PCR Ova and Parasite Exam No Parasites Seen Assessment and Plan Encounter Diagnosis ICD-10-CM 1. Alternating constipation and diarrhea R19.8 CONSULT TO GENERAL SURGERY COMP METABOLIC PANEL CBC + DIFF TSH BLD T4 FREE/FREE THYROX T3 FREE BLD SED RATE WESTERGREN C-REACTIVE PROTEIN (CRP) 2. Rectal fullness R19.8 CONSULT TO GENERAL SURGERY 3. Increased mucus in stool R19.5 CONSULT TO GENERAL SURGERY 4. Change in bowel habits R19.4 CONSULT TO GENERAL SURGERY SED RATE WESTERGREN C-REACTIVE PROTEIN (CRP) 5. Bleeding hemorrhoids K64.9 CONSULT TO GENERAL SURGERY COMP METABOLIC PANEL CBC + DIFF TSH BLD T4 FREE/FREE THYROX T3 FREE BLD Above issues addressed with patient. Patient involved in shared decision making for management of medical issues. History and medications reviewed. Epic updated as needed Refills and/or prescriptions taken care of and meds adjusted as indicated after reviewed history, exam and labs. Referrals and labs as discussed.Further evaluation and treatment as indicated. I spent a total of 29 minutes on the date of the service which included preparing to see the patient, [id number] patient care, completing clinical documentation, obtaining and/or reviewing separately obtained history, performing a medically appropriate examination, counseling and e (more content not included)... [facility] 06-16-2023 History of Present illness Narrative This note was created using Total Immersion[employer]. Subjective Jenny Solomon is a 37 year old female. Patient presents with: Follow Up: urgent care x 3 weeks nausea, diarrhea then constipation with bright red blood and mucous, always feels like has to go to bathroom SUBJECTIVE: Jenny Solomon is a 37 year old year old lady here today for [facility] follow up appointment for review of medical conditions. Noted that still has a lot of mucus. Passes thin stools when stool not hard. Gets watery stools sometimes--would at and in half an hour would have BM. Still has urgency after eating. no more watery stools now--that was in the beginning 3 weeks ago. Was having chills with the nausea then. No fevers. Noted nausea started a week before the diarrhea. No vomiting. Has hemorrhoids with the bleeding when has hard stools. Always feels like needs to have BM since started with diarrhea. Weight loss started since started with diarrhea. Noted 2 prior episodes of bowel issues and saw GI. Colonoscopy not done yet. Pumpkin does help. PAST MEDICAL HISTORY Diagnosis Date Asthma Constipation Diarrhea Dyspnea on exertion History of echocardiogram 05/13/2021 EF 60-65% RV systolic pressure 25mmHg R atrial pressure 3mmHg History of stress test 05/13/2021 no ischemic electrocardiogrpahic changes noted pt developed chest pressure ehich resolved in recovery phase average exercise capacity for age baseline htn with a normal BP response to exercise Current Outpatient Medications Medication Sig azelastine 0.1% nasal spray Use 2 Sprays in each nostril twice daily as needed. fluticasone (FLONASE) 50 mcg/actuation nasal spray Use 2 Sprays in each nostril once daily. montelukast (SINGULAIR) 10 mg tablet Take 1 tablet by mouth daily at bedtime. tiotropium bromide (SPIRIVA RESPIMAT) 1.25 mcg/actuation mist INHALE 2 PUFFS BY MOUTH INSTRUCTED ONCE DAILY. fluticasone-salmeterol (ADVAIR DISKUS) 500-50 mcg/dose dsdv One inhalation twice a day. Rinse mouth out after use. tezepelumab-ekko (TEZSPIRE) 210 mg/1.91 mL (110 mg/mL) pnij Inject 210 mg subcutaneously every 4 weeks. albuterol (PROVENTIL) 2.5 mg /3 mL (0.083 %) nebulizer solution Use 3 mL via nebulizer every 4 hours as needed for wheezing/shortness of breath. fexofenadine (GM) 180 mg tablet Take 180 mg by mouth as needed. cetirizine (ZYRTEC) 10 mg tablet Take 10 mg by mouth once daily. albuterol HFA (VENTOLIN HFA) 90 mcg/actuation inhaler Inhale 2 Puffs as instructed every 4 hours as needed for wheezing/shortness of breath (and before sexertion / exercise). acetaminophen 325 mg cap Take by mouth as needed. Current Facility-Administered Medications Medication Dose Route Frequency tezepelumab-ekko 210 mg subcutaneous injection (TEZSPIRE) 210 mg SUBCUTANEOUS q 4 WEEKS Review of Systems Objective BP 122/76 (BP Site: Right Arm, BP Position: Sitting, BP Cuff Size: Large Adult) Pulse 79 Temp 36.8 C (98.3 F) Resp 12 Ht 165.1 cm (5' 5 ) Wt 91.6 kg (202 lb) LMP 05/27/2023 SpO2 100% BMI 33.61 kg/m Physical Exam Component Latest Ref Rng & Units 05/30/2023 05/31/2023 Shigella spp./Enteroinvasive E.coli DNA Not Detected Not detected Campylobacter jejuni/coli DNA Not Detected Not detected Shiga toxin-producing gene(s) Not Detected Not detected Salmonella spp. DNA Not Detected Not detected C. difficile PCR Negative for C. difficile toxin by PCR Negative for C. difficile toxin by PCR Ova and Parasite Exam No Parasites Seen Assessment and Plan Encounter Diagnosis ICD-10-CM 1. Alternating constipation and diarrhea R19.8 CONSULT TO GENERAL SURGERY COMP METABOLIC PANEL CBC + DIFF TSH BLD T4 FREE/FREE THYROX T3 FREE BLD SED RATE WESTERGREN C-REACTIVE PROTEIN (CRP) 2. Rectal fullness R19.8 CONSULT TO GENERAL SURGERY 3. Increased mucus in stool R19.5 CONSULT TO GENERAL SURGERY 4. Change in bowel habits R19.4 CONSULT TO GENERAL SURGERY SED RATE WESTERGREN C-REACTIVE PROTEIN (CRP) 5. Bleeding hemorrhoids K64.9 CONSULT TO GENERAL SURGERY COMP METABOLIC PANEL CBC + DIFF TSH BLD T4 FREE/FREE THYROX T3 FREE BLD Above issues addressed with patient. Patient involved in shared decision making for management of medical issues. History and medications reviewed. Epic updated as needed Refills and/or prescriptions taken care of and meds adjusted as indicated after reviewed history, exam and labs. Referrals and labs as discussed.Further evaluation and treatment as indicated. I spent a total of 29 minutes on the date of the service which included preparing to see the patient, [id number] patient care, completing clinical documentation, obtaining and/or reviewing separately obtained history, performing a medically appropriate examination, counseling and educating the patient/family/caregiver, and ordering medications, tests, or procedures. Diane Higuera MD documented in this encounter [facility] 05-30-2023 Note HNO ID: [id number] Author: Jayden Banegas APRN.[employer] Service: ? Author Type: Nurse Practitioner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 her symptoms. She has taken Claritin and Zyrtec without clear relief. Allergen Model panel completed on March 30, 2022 was negative. No prior allergy skin testing or allergy immunotherapy. She was previously told by her neurologist that she had a nasal polyp. Reports normal sense of taste and smell. Denies a history of recurrent or chronic rhinosinusitis. Denies a history of nasal fracture. She has occasional GERD symptoms associated with ingestion of spicy or acidic foods. Takes Maalox as needed. 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 She does not know details about the reaction. 17 years ago, she developed vomiting and hives immediately after being treated with clindamycin for group B strep during childbirth. At 13 years old, she developed vomiting associated with use of Bactrim. She does not recall experiencing skin rash or any other symptoms with Bactrim. On 03/30/22, IgE level was 14.6 kU/L and AEC was 50) REVIEW OF SYSTEMS: Negative for fevers, chills, night sweats and unintentional weight loss. All other review of systems negative except for those listed above. PAST MEDICAL HISTORY Diagnosis Date Asthma Constipation Diarrhea Dyspnea on exertion History of echocardiogram 05/13/2021 EF 60-65% RV systolic pressure 25mmHg R atrial pressure 3mmHg History of stress test 05/13/2021 no ischemic electrocardiogrpahic changes noted pt developed chest pressure ehich resolved in recovery phase average exercise capacity for age baseline htn with a normal BP response to exercise MEDICATIONS: montelukast (SINGULAIR) 10 mg tabletTake 1 tablet by mouth daily at bedtime.Disp: 90 tabletRfl: 3 tiotropium bromide (SPIRIVA RESPIMAT) 1.25 mcg/actuation mistINHALE 2 PUFFS BY MOUTH INSTRUCTED ONCE DAILY.Disp: 3 EachRfl: 2 azelastine 0.1% nasal sprayUse 2 Sprays in (more content not included)... [facility] 05-04-2023 Note HNO ID: [id number] Author: Nkechi Srivastava MD Service: ? Author Type: Physician Type: Progress Notes Filed: 05/04/2023 9:48 AM Note Text: . [facility] Note Patient name: Jenny Solomon PCP: Diane Higuera MD CC: Follow-up asthma HPI: Jenny Solomon 37 year old obese female non-smoker with PMH significant for severe persistent asthma. Current therapy consists of Tezspire, Advair, albuterol as needed. Stopped Spiriva due to excessive lower extremity cramping. Cramping resolved once she stopped her Spiriva however she has had issues with her asthma related to the poor air quality. She has intermittently been using her Spiriva for better asthma control. Main symptom is shortness of breath. No excessive coughing, sputum production or wheezing. No nocturnal awakenings. Recent URI or ED visits. Recent issues with left hip pain requiring injection and a course of oral steroids. She also has hand joint pain and stiffness lasting 2 to 3 hours, difficulty buttoning and making a fist. She has not noted any erythema that she has had some swelling of her PIP joints. DATA: PFT 12/2022: Review of spirometry shows no air flow obstruction Labs: No peripheral eosinophilia PAST MEDICAL HISTORY Diagnosis Date Asthma Constipation Diarrhea Dyspnea on exertion History of echocardiogram 05/13/2021 EF 60-65% RV systolic pressure 25mmHg R atrial pressure 3mmHg History of stress test 05/13/2021 no ischemic electrocardiogrpahic changes noted pt developed chest pressure ehich resolved in recovery phase average exercise capacity for age baseline htn with a normal BP response to exercise ALLERGIES Allergen Reactions Clindamycin Rash, GI Upset Septra [Other] Rash, GI Upset fluticasone-salmeterol (ADVAIR DISKUS) 500-50 mcg/dose dsdvOne inhalation twice a day. Rinse mouth out after use.Disp: 3 EachRfl: 2 tezepelumab-ekko (TEZSPIRE) 210 mg/1.91 mL (110 mg/mL) pnijInject 210 mg subcutaneously every 4 weeks.Disp: 1.91 mLRfl: 11 montelukast (SINGULAIR) 10 mg tabletTake 1 tablet by mouth daily at bedtime.Disp: 90 tabletRfl: 3 tiotropium bromide (SPIRIVA RESPIMAT) 1.25 mcg/actuation mistINHALE 2 PUFFS BY MOUTH INSTRUCTED ONCE DAILY.Disp: 3 EachRfl: 2 azelastine 0.1% nasal sprayUse 2 Sprays in each nostril twice daily as needed.Disp: 90 mLRfl: 2 fluticasone (FLONASE) 50 mcg/actuation nasal spraySPRAY 1 SPRAY INTO EACH NOSTRIL EVERY DAYDisp: 48 mLRfl: 1 predniSONE (DELTASONE) 20 mg tabletTake two daily for 5 days.Disp: 10 tabletRfl: 3 albuterol (PROVENTIL) 2.5 mg /3 mL (0.083 %) nebulizer solutionUse 3 mL via nebulizer every 4 hours as needed for wheezing/shortness of breath.Disp: 36 mLRfl: 2 fexofenadine (GM) 180 mg tabletTake 180 mg by mouth as needed.Disp: Rfl: cetirizine (ZYRTEC) 10 mg tabletTake 10 mg by mouth once daily.Disp: Rfl: albuterol HFA (VENTOLIN HFA) 90 mcg/actuation inhalerInhale 2 Puffs as instructed every 4 hours as needed for wheezing/shortness of breath (and before sexertion / exercise).Disp: 1 EachRfl: 5 acetaminophen 325 mg capTake by mouth.Disp: Rfl: Social History Tobacco Use Smoking status: Never Smokeless tobacco: Never Vaping Use Vaping Use: Never used Substance Use Topics Alcohol use: Not Currently Drug use: No PMH, Social history, family history and surgical history reviewed and updated in EMR REVIEW OF SYSTEMS: CONSTITUTIONAL: No fevers, chills, nightsweats, unintended weight loss. Some fatigue HEENT: Denies nasal congestion/sinus symptoms, problematic allergy problems. CARDIOVASCULAR: No chest pain, palpitations, orthopnea, PND, edema. PULM: See HPI GI: No dysphagia/odynophagia, problematic reflux NEURO: No new balance problems, peripheral weakness/paresthesias or numbness of concern. MUSC-SKEL: Left hip pain PSY: No concerns regarding depression, anxiety INTEGUMENTARY: No new skin changes, rashes, eczema PHYSICAL EXAMINATION: BP 122/68 Pulse 75 Resp 17 Wt 207 lb (93.9kg) SpO2 100% LMP 03/23/2023 General Appearance: Obese, age-appropriate female, NAD. Skin: Skin color, texture, turgor normal, no suspicious rashes or lesions. Head: Normocephalic, no masses, lesions, tenderness or abnormalities. Eyes: Sclera, conjunctiva normal. Oropharynx: No oral lesions, thrush or erythema. Neck: No JVD, no masses, no adenopathy. Lungs: Not labored, normal to percussion, no wheezes or crackles. Heart: Regular rate and rhythm, no murmurs gallops. Extremities: No edema or clubbing Musculoskeletal: No joint deformities, effusions or erythema Neurologic: Alert and oriented, no focal findings. Assessment/Plan: 1. Severe persistent asthma, uncomplicated -Continue Advair with as needed albuterol. Restart Spiriva -Continue Trezspire injections 2. Polyarticular joint pain -Severe left hip pain in female less than 50 years of age suspicious for possible rheumatoid arthritis bu (more content not included)... [facility] 05-04-2023 History of Present illness Narrative Images from the original note were not included. . Res[facility] Note Patient name: Jenny Solomon PCP: Diane Higuera MD CC: Follow-up asthma HPI: Jenny Solomon 37 year old obese female non-smoker with PMH significant for severe persistent asthma. Current therapy consists of Tezspire, Advair, albuterol as needed. Stopped Spiriva due to excessive lower extremity cramping. Cramping resolved once she stopped her Spiriva however she has had issues with her asthma related to the poor air quality. She has intermittently been using her Spiriva for better asthma control. Main symptom is shortness of breath. No excessive coughing, sputum production or wheezing. No nocturnal awakenings. Recent URI or ED visits. Recent issues with left hip pain requiring injection and a course of oral steroids. She also has hand joint pain and stiffness lasting 2 to 3 hours, difficulty buttoning and making a fist. She has not noted any erythema that she has had some swelling of her PIP joints. DATA: PFT 12/2022: Review of spirometry shows no air flow obstruction Labs: No peripheral eosinophilia PAST MEDICAL HISTORY Diagnosis Date Asthma Constipation Diarrhea Dyspnea on exertion History of echocardiogram 05/13/2021 EF 60-65% RV systolic pressure 25mmHg R atrial pressure 3mmHg History of stress test 05/13/2021 no ischemic electrocardiogrpahic changes noted pt developed chest pressure ehich resolved in recovery phase average exercise capacity for age baseline htn with a normal BP response to exercise ALLERGIES Allergen Reactions Clindamycin Rash, GI Upset Septra [Other] Rash, GI Upset fluticasone-salmeterol (ADVAIR DISKUS) 500-50 mcg/dose dsdv^One inhalation twice a day. Rinse mouth out after use.^Disp: 3 Each^Rfl: 2 tezepelumab-ekko (TEZSPIRE) 210 mg/1.91 mL (110 mg/mL) pnij^Inject 210 mg subcutaneously every 4 weeks.^Disp: 1.91 mL^Rfl: 11 montelukast (SINGULAIR) 10 mg tablet^Take 1 tablet by mouth daily at bedtime.^Disp: 90 tablet^Rfl: 3 tiotropium bromide (SPIRIVA RESPIMAT) 1.25 mcg/actuation mist^INHALE 2 PUFFS BY MOUTH INSTRUCTED ONCE DAILY.^Disp: 3 Each^Rfl: 2 azelastine 0.1% nasal spray^Use 2 Sprays in each nostril twice daily as needed.^Disp: 90 mL^Rfl: 2 fluticasone (FLONASE) 50 mcg/actuation nasal spray^SPRAY 1 SPRAY INTO EACH NOSTRIL EVERY DAY^Disp: 48 mL^Rfl: 1 predniSONE (DELTASONE) 20 mg tablet^Take two daily for 5 days.^Disp: 10 tablet^Rfl: 3 albuterol (PROVENTIL) 2.5 mg /3 mL (0.083 %) nebulizer solution^Use 3 mL via nebulizer every 4 hours as needed for wheezing/shortness of breath.^Disp: 36 mL^Rfl: 2 fexofenadine (GM) 180 mg tablet^Take 180 mg by mouth as needed.^Disp: ^Rfl: cetirizine (ZYRTEC) 10 mg tablet^Take 10 mg by mouth once daily.^Disp: ^Rfl: albuterol HFA (VENTOLIN HFA) 90 mcg/actuation inhaler^Inhale 2 Puffs as instructed every 4 hours as needed for wheezing/shortness of breath (and before sexertion / exercise).^Disp: 1 Each^Rfl: 5 acetaminophen 325 mg cap^Take by mouth.^Disp: ^Rfl: Social History Tobacco Use Smoking status: Never Smokeless tobacco: Never Vaping Use Vaping Use: Never used Substance Use Topics Alcohol use: Not Currently Drug use: No PMH, Social history, family history and surgical history reviewed and updated in EMR REVIEW OF SYSTEMS: CONSTITUTIONAL: No fevers, chills, nightsweats, unintended weight loss. Some fatigue HEENT: Denies nasal congestion/sinus symptoms, problematic allergy problems. CARDIOVASCULAR: No chest pain, palpitations, orthopnea, PND, edema. PULM: See HPI GI: No dysphagia/odynophagia, problematic reflux NEURO: No new balance problems, peripheral weakness/paresthesias or numbness of concern. MUSC-SKEL: Left hip pain PSY: No concerns regarding depression, anxiety INTEGUMENTARY: No new skin changes, rashes, eczema PHYSICAL EXAMINATION: BP 122/68 Pulse 75 Resp 17 Wt 207 lb (93.9kg) SpO2 100% LMP 03/23/2023 General Appearance: Obese, age-appropriate female, NAD. Skin: Skin color, texture, turgor normal, no suspicious rashes or lesions. Head: Normocephalic, no masses, lesions, tenderness or abnormalities. Eyes: Sclera, conjunctiva normal. Oropharynx: No oral lesions, thrush or erythema. Neck: No JVD, no masses, no adenopathy. Lungs: Not labored, normal to percussion, no wheezes or crackles. Heart: Regular rate and rhythm, no murmurs gallops. Extremities: No edema or clubbing Musculoskeletal: No joint deformities, effusions or erythema Neurologic: Alert and oriented, no focal findings. Assessment/Plan: 1. Severe persistent asthma, uncomplicated -Continue Advair with as needed albuterol. Restart Spiriva -Continue Trezspire injections 2. Polyarticular joint pain -Severe left hip pain in female less than 50 years of age suspicious for possible rheumatoid arthritis but patient also at risk for avascular necrosis of the hip due to her past steroid usage -Screening CCP rheumatoid factor and CRP -May need MRI of the hip will forward PCP 3. Class I obesity -BMI 33 -Weight loss advised obesity portends poor control of asthma Nkechi Srivastava MD [facility] documented in this encounter [facility] 04-13-2023 Note HNO ID: [id number] Author: Diane Higuera MD Service: ? Author Type: Physician Type: Progress Notes Filed: 05/20/2023 11:12 PM Note Text: This note was created using [employer]ersion[employer]. Subjective Jenny Solomon is a 37 year old female. Patient presents with: Established Patient: Left hip pain x 4 months with last 2 days being severe, denies injury SUBJECTIVE: Jenny Solomon is a 37 year old year old lady here today for acute appointment for review of medical conditions. Left hip pain (no headache--MyChart issue). Posterolateral hip area. Stretching not helping. 4 months total Really bad the past 2 days Before could ignore--stiffness, heating pad helped. Tylenol (2 pills) and ibuprofen (4 pills) had helped. Alternated every 4 to 6 hours past 2 days. Saw HOUSE MOTHER in case was due to ovary or UTI. Negative work up. No pain in anterior hip, no pain shooting down leg. Hurts getting up and down from squatting on floor or toilet.Hurts to turn in bed. PAST MEDICAL HISTORY Diagnosis Date Asthma Constipation Diarrhea Dyspnea on exertion History of echocardiogram 05/13/2021 EF 60-65% RV systolic pressure 25mmHg R atrial pressure 3mmHg History of stress test 05/13/2021 no ischemic electrocardiogrpahic changes noted pt developed chest pressure ehich resolved in recovery phase average exercise capacity for age baseline htn with a normal BP response to exercise Loss of weight Current Outpatient Medications Medication Sig azelastine 0.1% nasal spray Use 2 Sprays in each nostril twice daily as needed. fluticasone-salmeterol (ADVAIR DISKUS) 500-50 mcg/dose dsdv One inhalation twice a day. Rinse mouth out after use. tezepelumab-ekko (TEZSPIRE) 210 mg/1.91 mL (110 mg/mL) pnij Inject 210 mg subcutaneously every 4 weeks. fluticasone (FLONASE) 50 mcg/actuation nasal spray SPRAY 1 SPRAY INTO EACH NOSTRIL EVERY DAY predniSONE (DELTASONE) 20 mg tablet Take two daily for 5 days. albuterol (PROVENTIL) 2.5 mg /3 mL (0.083 %) nebulizer solution Use 3 mL via nebulizer every 4 hours as needed for wheezing/shortness of breath. fexofenadine (GM) 180 mg tablet Take 180 mg by mouth as needed. cetirizine (ZYRTEC) 10 mg tablet Take 10 mg by mouth once daily. montelukast (SINGULAIR) 10 mg tablet Take 1 tablet by mouth daily at bedtime. albuterol HFA (VENTOLIN HFA) 90 mcg/actuation inhaler Inhale 2 Puffs as instructed every 4 hours as needed for wheezing/shortness of breath (and before sexertion / exercise). acetaminophen 325 mg cap Take by mouth. tiotropium bromide (SPIRIVA RESPIMAT) 1.25 mcg/actuation mist INHALE 2 PUFFS BY MOUTH INSTRUCTED ONCE DAILY. Current Facility-Administered Medications Medication Dose Route Frequency tezepelumab-ekko 210 mg subcutaneous injection (TEZSPIRE) 210 mg SUBCUTANEOUS q 4 WEEKS Review of Systems Objective BP 118/84 Pulse 75 Temp 37.2 ?C (99 ?F) Resp 18 Wt 92.1 kg (203 lb) LMP 03/23/2023 (Approximate) SpO2 99% BMI 33.26 kg/m? Physical Exam Musculoskeletal: Back: Assessment and Plan Encounter Diagnosis ICD-10-CM 1. Back strain, initial encounter S39.012A predniSONE (DELTASONE) 10 mg tablet keTORolac 30 mg injection (Toradol) traMADol (ULTRAM) 50 mg tablet Lower left back Above issues addressed with patient. Patient involved in shared decision making for management of medical issues. History and medications reviewed. Epic updated as needed Refills and/or prescriptions taken care of and meds adjusted as indicated after reviewed history, exam and labs. Health Maintenance reviewed. Updated record and/or ordered tests as recorded. Encouraged on efforts at healthy diet and regular exercise and adequate sleep. Diane Higuera MD [facility] 04-13-2023 History of Present illness Narrative Images from the original note were not included. This note was created using appbackr. Subjective Jenny Solomon is a 37 year old female. Patient presents with: Established Patient: Left hip pain x 4 months with last 2 days being severe, denies injury SUBJECTIVE: Jenny Solomon is a 37 year old year old lady here today for acute appointment for review of medical conditions. Left hip pain (no headache--MyChart issue). Posterolateral hip area. Stretching not helping. 4 months total Really bad the past 2 days Before could ignore--stiffness, heating pad helped. Tylenol (2 pills) and ibuprofen (4 pills) had helped. Alternated every 4 to 6 hours past 2 days. Saw HOUSE MOTHER in case was due to ovary or UTI. Negative work up. No pain in anterior hip, no pain shooting down leg. Hurts getting up and down from squatting on floor or toilet.Hurts to turn in bed. PAST MEDICAL HISTORY Diagnosis Date Asthma Constipation Diarrhea Dyspnea on exertion History of echocardiogram 05/13/2021 EF 60-65% RV systolic pressure 25mmHg R atrial pressure 3mmHg History of stress test 05/13/2021 no ischemic electrocardiogrpahic changes noted pt developed chest pressure ehich resolved in recovery phase average exercise capacity for age baseline htn with a normal BP response to exercise Loss of weight Current Outpatient Medications Medication Sig azelastine 0.1% nasal spray Use 2 Sprays in each nostril twice daily as needed. fluticasone-salmeterol (ADVAIR DISKUS) 500-50 mcg/dose dsdv One inhalation twice a day. Rinse mouth out after use. tezepelumab-ekko (TEZSPIRE) 210 mg/1.91 mL (110 mg/mL) pnij Inject 210 mg subcutaneously every 4 weeks. fluticasone (FLONASE) 50 mcg/actuation nasal spray SPRAY 1 SPRAY INTO EACH NOSTRIL EVERY DAY predniSONE (DELTASONE) 20 mg tablet Take two daily for 5 days. albuterol (PROVENTIL) 2.5 mg /3 mL (0.083 %) nebulizer solution Use 3 mL via nebulizer every 4 hours as needed for wheezing/shortness of breath. fexofenadine (GM) 180 mg tablet Take 180 mg by mouth as needed. cetirizine (ZYRTEC) 10 mg tablet Take 10 mg by mouth once daily. montelukast (SINGULAIR) 10 mg tablet Take 1 tablet by mouth daily at bedtime. albuterol HFA (VENTOLIN HFA) 90 mcg/actuation inhaler Inhale 2 Puffs as instructed every 4 hours as needed for wheezing/shortness of breath (and before sexertion / exercise). acetaminophen 325 mg cap Take by mouth. tiotropium bromide (SPIRIVA RESPIMAT) 1.25 mcg/actuation mist INHALE 2 PUFFS BY MOUTH INSTRUCTED ONCE DAILY. Current Facility-Administered Medications Medication Dose Route Frequency tezepelumab-ekko 210 mg subcutaneous injection (TEZSPIRE) 210 mg SUBCUTANEOUS q 4 WEEKS Review of Systems Objective BP 118/84 Pulse 75 Temp 37.2 C (99 F) Resp 18 Wt 92.1 kg (203 lb) LMP 03/23/2023 (Approximate) SpO2 99% BMI 33.26 kg/m Physical Exam Musculoskeletal: Back: Assessment and Plan Encounter Diagnosis ICD-10-CM 1. Back strain, initial encounter S39.012A predniSONE (DELTASONE) 10 mg tablet keTORolac 30 mg injection (Toradol) traMADol (ULTRAM) 50 mg tablet Lower left back Above issues addressed with patient. Patient involved in shared decision making for management of medical issues. History and medications reviewed. Epic updated as needed Refills and/or prescriptions taken care of and meds adjusted as indicated after reviewed history, exam and labs. Health Maintenance reviewed. Updated record and/or ordered tests as recorded. Encouraged on efforts at healthy diet and regular exercise and adequate sleep. Diane Higuera MD documented in this encounter [facility] 04-01-2023 Note HNO ID: [id number] Author: Keli Bosch PA-C Service: ? Author Type: Physician Rigger Helper Type: Progress Notes Filed: 04/01/2023 9:56 AM Note Text: Presents to express care triage with severe neck pain. She woke up and is not able to move her neck much without really severe pain. She states it made her vomit it hurts so bad this morning. Patient has her neck extended to the left and is not able to move it. Denies any injury. She states moving any part of her body and the drive here hitting a bump put her into severe pain. Due to the amount of pain that she is and I recommended evaluation and treatment in the emergency department. We do not have imaging or appropriate pain management here. Her daughter is here with her and will take her to [facility] ED. [facility] 04-01-2023 History of Present illness Narrative Presents to express care triage with severe neck pain. She woke up and is not able to move her neck much without really severe pain. She states it made her vomit it hurts so bad this morning. Patient has her neck extended to the left and is not able to move it. Denies any injury. She states moving any part of her body and the drive here hitting a bump put her into severe pain. Due to the amount of pain that she is and I recommended evaluation and treatment in the emergency department. We do not have imaging or appropriate pain management here. Her daughter is here with her and will take her to [facility] ED. documented in this encounter [facility] 02-09-2023 Note HNO ID: [id number] Author: Bessie Gregg PA-C Service: ? Author Type: Physician Rigger Helper Type: Progress Notes Filed: 02/09/2023 4:46 PM Note Text: Patient: Jenny Solomon PCP: Diane Higuera MD CC: asthma HPI: Jenny Solomon 37 year old female, no smoking history, with PMH significant for essential HTN, asthma, chronic rhinitis, obesity, and seasonal rhinitis. Since the last Pulmonary Clinic visit 07/13/2022, the patient has not required ED care for exacerbation. There have been no hospital admission for exacerbation. Claims to be consistently compliant with prescribed maintenance Advair, Spiriva, albuterol as needed, monthly Tezspire injections, cetirizine, fexofenadine (in the fall), fluticasone nasal spray, montelukast. Most recent prednisone on 07/13/2022, previous prescriptions on 03/30/2022 and 12/30/2021. 1-2 rescue bronchodilator use per week. Can be around some irritants without using her rescue inhaler. She noticed over the last week that the control has been really good. Has been having urinary frequency, getting up 3x per night. No cough. No wheezing. No dyspnea at rest. Exertional dyspnea has not changed, mostly steps. Immunization History Administered Date(s) Administered COVID-19 original vaccine, booster dose, monovalent (MODERNA) 02/28/2022 COVID-19 original vaccine, full dose, monovalent (MODERNA) 12/28/2020 01/25/2021 COVID-19 vaccine, age 12+ yr, bivalent (MODERNA) 07/20/2022 diphtheria tetanus pertussis (DTP) vaccine 03/12/1984 05/07/1984 12/01/1988 06/15/1989 influenza (IIV4) vaccine, age 6 mo - 64 yr, quadrivalent (AFLURIA, FLULAVAL, FLUZONE) 07/28/2020 06/16/2022 measles mumps rubella (MMR) vaccine (M-M-R II, PRIORIX) 02/10/1985 pneumococcal (PCV20) vaccine, 20 valent (PREVNAR 20) 06/16/2022 poliovirus vaccine, unspecified formulation 03/12/1984 05/07/1984 12/01/1988 tetanus diphtheria pertussis (Tdap) vaccine, age 7+ yr (ADACEL, BOOSTRIX) 2018 PAST MEDICAL HISTORY Diagnosis Date Asthma Constipation Diarrhea Dyspnea on exertion History of echocardiogram 05/13/2021 EF 60-65% RV systolic pressure 25mmHg R atrial pressure 3mmHg History of stress test 05/13/2021 no ischemic electrocardiogrpahic changes noted pt developed chest pressure ehich resolved in recovery phase average exercise capacity for age baseline htn with a normal BP response to exercise Loss of weight Allergies: Clindamycin Rash, GI Upset Septra [Other] Rash, GI Upset tiotropium bromide (SPIRIVA RESPIMAT) 1.25 mcg/actuation mistINHALE 2 PUFFS BY MOUTH INSTRUCTED ONCE DAILY.Disp: 3 EachRfl: 2 azelastine 0.1% nasal sprayUse 2 Sprays in each nostril twice daily as needed.Disp: 90 mLRfl: 2 fluticasone-salmeterol (ADVAIR DISKUS) 500-50 mcg/dose dsdvOne inhalation twice a day. Rinse mouth out after use.Disp: 3 EachRfl: 2 tezepelumab-ekko (TEZSPIRE) 210 mg/1.91 mL (110 mg/mL) pnijInject 210 mg subcutaneously every 4 weeks.Disp: 1.91 mLRfl: 11 fluticasone (FLONASE) 50 mcg/actuation nasal spraySPRAY 1 SPRAY INTO EACH NOSTRIL EVERY DAYDisp: 48 mLRfl: 1 predniSONE (DELTASONE) 20 mg tabletTake two daily for 5 days.Disp: 10 tabletRfl: 3 albuterol (PROVENTIL) 2.5 mg /3 mL (0.083 %) nebulizer solutionUse 3 mL via nebulizer every 4 hours as needed for wheezing/shortness of breath.Disp: 36 mLRfl: 2 fexofenadine (GM) 180 mg tabletTake 180 mg by mouth as needed.Disp: Rfl: cetirizine (ZYRTEC) 10 mg tabletTake 10 mg by mouth once daily.Disp: Rfl: montelukast (SINGULAIR) 10 mg tabletTake 1 tablet by mouth daily at bedtime.Disp: 30 tabletRfl: 11 albuterol HFA (VENTOLIN HFA) 90 mcg/actuation inhalerInhale 2 Puffs as instructed every 4 hours as needed for wheezing/shortness of breath (and before sexertion / exercise).Disp: 1 EachRfl: 5 acetaminophen 325 mg capTake by mouth.Disp: Rfl: Social History Tobacco Use Smoking status: Never Smokeless tobacco: Never Vaping Use Vaping Use: Never used Substance Use Topics Alcohol use: Not Currently Drug use: No Family History Problem Relation Age of Onset other (cerical cancer) Mother Asthma Sister Heart Maternal Grandmother PAST SURGICAL HISTORY Procedure Laterality Date APPENDECTOMY CHOLECYSTECTOMY 09/24/2002 Cholecystectomy LAPS ABD PRTMANDOMENTUM DX W/WO SPEC BR/WA SPX 11/22/2008 Laparoscopy and DANDC BP (P) 132/78 Pulse 83 Resp 16 Wt 93.4 kg (206 lb) LMP 12/28/2022 SpO2 99% BMI 33.75 kg/m? I reviewed the past medical history, family history, social history and surgical history with changes noted above and updated in EMR. Review of Systems Genitourinary: Retention, up 3x per night to urinate All other systems reviewed and are negative. Physical Exam Constitutional: Appearance: Normal appearance. HENT: Head: Normocephalic and atraumatic. Right Ear: External ear normal. Left Ear: External ear normal. Nose: Nose nor (more content not included)... [facility] 01-12-2023 Note HNO ID: [id number] Author: JULIAN Parikh Service: ? Author Type: Respiratory Therapist Type: Progress Notes Filed: 01/12/2023 10:35 AM Note Text: PULM FUNCTION SMARTBLOCK: Provider: Sam Betancourt MD Assisting Tech: JULIAN Parikh Spirometry w/BD: [address] [facility] 01-12-2023 Note HNO ID: [id number] Author: Tiffany Wu RDMS Service: ? Author Type: Procurement Professional Type: Progress Notes Filed: 01/12/2023 9:14 AM Note Text: Radiology Service Progress Note PATIENT NAME: Jenny Solomon DATE OF SERVICE: January 12, 2023 TIME: 9:14 AM PATIENT IDENTITY VERIFICATION COMPLETED USING TWO (2) IDENTIFIERS: Name and Date of confirmed by patient verbally. FALL SCREENING: Has the patient had 2 falls in the last year or 1 fall with injury or currently using an Ambulatory Assistive Device (Walker, Cane, Wheelchair, Crutches, etc.)? No PATIENT GENDER DATA: Female. status: : No status: NO. PATIENT RELEVANT IMPLANT DATA REVIEWED: Not Applicable RADIOLOGY DEPARTMENT: Ultrasound PERIPHERAL IV DATA: Not applicable SIGNED BY: Tiffany Wu RDMS January 12, 2023 9:[address] [facility] 01-05-2023 Note HNO ID: [id number] Author: Hallie Flores MD Service: ? Author Type: Physician Type: Progress Notes Filed: 01/05/2023 11:56 AM Note Text: Clinical Psychology Professor offered: Patient declines. Bessie is a 37 year old who presents for an annual gynecologic exam with complaints, lower back pain and bloating . Reports last cycle was 9 days late. Had lower back pain and bloating like going to start cycle all month. 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 2 daughters 18. Menses: cycles every 28 days and 5-7 days of flow. 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 History Comments: Sexual Activity: Yes; Male Contraception: Vasectomy PAST MEDICAL HISTORY Diagnosis Date Asthma Constipation Diarrhea Dyspnea on exertion History of echocardiogram 05/13/2021 EF 60-65% RV systolic pressure 25mmHg R atrial pressure 3mmHg History of stress test 05/13/2021 no ischemic electrocardiogrpahic changes noted pt developed chest pressure ehich resolved in recovery phase average exercise capacity for age baseline htn with a normal BP response to exercise Loss of weight PAST SURGICAL HISTORY Procedure Laterality Date APPENDECTOMY CHOLECYSTECTOMY 09/24/2002 Cholecystectomy LAPS ABD PRTMANDOMENTUM DX W/WO SPEC BR/WA SPX 11/22/2008 Laparoscopy and DANDC FAMILY HISTORY Problem Relation Age of Onset other (cerical cancer) Mother Asthma Sister Heart Maternal Grandmother SOCIAL HISTORY Social History Tobacco Use Smoking status: Never Smokeless tobacco: Never Vaping Use Vaping Use: Never used Substance Use Topics Alcohol use: Not Currently Drug use: No REVIEW OF SYSTEMS Abdomen: No abdominal pain, nausea, vomiting, diarrhea, or constipation. No bloating, early satiety, indigestion, or increased flatulence. Bladder: No dysuria, gross hematuria, urinary frequency, or incontinence. ++ urgency Breast: No breast lumps, nipple d/c, overlying skin changes, redness or skin retraction. Allergies and current medication updated:Yes EXAM: BP 124/82 Ht 5' 5.354 (1.66m) Wt 208 lb (94.3kg) LMP 12/28/2022 BMI 34.24 kg/(m2). GENERAL: pleasant, female in no apparent distress HEENT: Normocephalic, atraumatic, mucus membranes moist, and no lesions NECK: Supple, full range of motion, no adenopathy, and thyroid normal DERMATOLOGY: Normal, without lesions, non-icteric, and non-hirsute BREAST: soft, non-tender, symmetric, no dominant mass, normal nipple-areolar complex, no lymphadenopathy, and no nipple discharge ABDOMEN: soft, non-tender, and no masses PELVIC: external genitalia normal, normal Bartholin's glands, urethra, [place]'s glands, no vulvar lesions, no cervical lesions, good vaginal support, physiologic discharge present, normal appearing perineal body and perianal region BIMANUAL: uterus normal size, shape and consistency, no adnexal masses, and ?? Cyst on left RECTOVAGINAL: deferred. NEURO: alert and oriented x3,exam grossly non-focal EXTREMITIES: normal ASSESSMENT/PLAN: 1) Health maintenance: Pap/HPV up to date. Mammogram ordered. Nutrition, exercise and routine health maintenance exams reviewed. Calcium/Vitamin D supplementation information provided. 2) Contraception: vasectomy. Contraceptive options reviewed and information provided. 3) STD screening: Declined STD check. 4) Follow up one year or sooner as needed 5) pelvic us ordered ?? GI vs HOUSE MOTHER vs urology. Will get Urine today. Hallie Chacko MD [facility] 01-03-2023 Miscellaneous Notes [facility] 09-06-22. Patient requesting medications be sent to [facility] mail order. Patient phones requesting refills as follows: Requested Prescriptions Pending Prescriptions Disp Refills tiotropium bromide (SPIRIVA RESPIMAT) 1.25 mcg/actuation mist 3 Each 2 Sig: INHALE 2 PUFFS BY MOUTH INSTRUCTED ONCE DAILY. azelastine 0.1% nasal spray 90 mL 2 Sig: Use 2 Sprays in each nostril twice daily as needed. fluticasone-salmeterol (ADVAIR DISKUS) 500-50 mcg/dose dsdv 3 Each 2 Sig: One inhalation twice a day. Rinse mouth out after use. Please review and advise. Gina Ge RN documented in this encounter [facility] 12-29-2022 Note HNO ID: [id number] Author: Alba Barrett RN Service: ? Author Type: ? Type: Progress Notes Filed: 12/29/2022 8:27 AM Note Text: Patient was taught self injection for home use with Tezspire. She demonstrated self injection with monkey trainer. She then injected medication into thigh without complications. Patient will continue with [facility] for future medication supplies because allergy is out of network. [facility] 12-18-2022 Miscellaneous Notes A new consent is not needed for home use per main campus. Patient is interested in doing self-injections. She is aware to come in for nurse visit as scheduled in December for self-administration teaching and consent for home use. Called [facility] provider line at [phone] to make sure patient is approved for home injections and Tezspire auto-injector. Per [facility] (spoke with Em Tripathi), Tezspire is approved for home use and auto-injector. Please send auto-injector script to [facility]. Dr. Betancourt, are you able to get consent via phone or My Chart for home use? Fridays work the best for patient to come into the office, which is not a day you are in the office. Patient phones requesting refills as follows: Requested Prescriptions Pending Prescriptions Disp Refills tezepelumab-ekko (TEZSPIRE) 210 mg/1.91 mL (110 mg/mL) pnij 1.91 mL 11 Sig: Inject 210 mg subcutaneously every 4 weeks. Please review and advise. Gina Ge RN Aware. Thank you. Sam Betancourt MD PFS were being sent from Tezspire patient assistance Foundation. We just got Tezspire approved with her new insurance ([employer]), so we will need to call and make sure it is for auto-injectors. Yes, as long as patient is comfortable with home administration. Have her injections been from the auto-injector or prefilled syringes? Sam Betancourt MD Tezspire approved for home-use per [facility] main [place] allergy. Please advise if patient is a candidate. Re-faxed PA form with nurse visit CPT code. Yomaira from [employer]. States that with the J code provided for the medication, the injection compenent of getting the Tezpire does not need a PA. However, recommended sending in request with code for either nurse visit or office visit. Closed the other PA request, Ref #[id number] Patient would like to continue getting injections in [place] as she only has Fridays off work. Faxed medical PA to [employer] requesting nurse visits at in-network benefits. Patient states she also requested this from insurance and is waiting to hear back. Will await determination. Called [facility] [phone] to check status on Tezspire medical PA. (Pharmacy PA approved.) Spoke to [place]. Specialty pharmacy is [facility]. [facility] doesn't have medical PA on file. Re-faxed form and clinicals. May be OON benefits if not approved at [facility] facility. 15 day turn around time. [facility] is in-network. [place] whip operator (Dr. Hargrove) is in-network. Will await determination for medical PA. Tezspire approved through pharmacy benefits 11-29-22 to 06-01-23. Case # [id number]. Waiting for medical PA determination. Faxed pharmacy PA to [phone] and medical PA to [phone]. Faxed with clinicals and last camila/victoria. Will await determination. Filled out medical and pharmacy PA forms. Attached clinicals. Placed on Dr. Betancourt's desk for signature. Called [facility] provider line [phone] to check on status of provider portal set-up. ([place] set up provider portal last week, but has not heard anything back.) [facility] will not do authorization via phone. Will fax pharmacy PA form to our office. She will also need medical PA to approve administrations, which [facility] will fax. Received benefits investigation from Tezspire. Patient has $8400 individual deductible, nothing met. After deductible met, patient is 80% covered. She is approved for the Tezspire Together Fast Start Program. Filled out form and faxed. Patient has appointment 3-10. Previously set up delivery of Tezspire for 3-7. Still waiting to hear back from [employer] insurance provider portal to initiate PA. Tezspire [employer] calling. Patient not eligible for Foundation medication as she now has [employer]. We will still get dose for next week and she may be able to continue getting Tezspire through a bridge program while PA is pending. Patient has a co-pay card that is good for $13,000, which is good for 3 years. Tezspire Together ph # [phone]. Waiting to hear from [employer] provider portal to start PA process. (Medical and pharmacy PA needs done per [employer].) Called new insurance [employer] [phone] to initiate PA on Tezspire. Spoke with Jessica Young code [phone]. Group # [id number] [facility] is specialty pharmacy. Was told a medical (for injections in the office) and pharmacy (for the medication) auth needs initiated through [employer]. To initiate pharmacy auth: Go to provider resources, then pharmacy. To intiate medicacal auth: PA referral form [facility] started process for [employer] provider portal. documented in this encounter [facility] 12-01-2022 Note HNO ID: [id number] Author: Alba Barrett RN Service: ? Author Type: ? Type: Progress Notes Filed: 12/01/2022 11:00 AM Note Text: 210 mg Tezspire injected SQ into left arm without difficulty. No wait required. LOT:[id number] Expires: 11/[address] [facility] 12-01-2022 History of Present illness Narrative 210 mg Tezspire injected SQ into left arm without difficulty. No wait required. LOT:[id number] Expires: 11/18 documented in this encounter [facility] 11-22-2022 Miscellaneous Notes Please see images of new insurance cards-please enter into registration. documented in this encounter [facility] 11-03-2022 Note HNO ID: [id number] Author: Jaja Ding RN Service: ? Author Type: Registered Nurse Type: Progress Notes Filed: 11/03/2022 8:27 AM Note Text: Pt identified by name and birthdate. Patient is here for Tezspire injection. Patient recieves Tezspire from Tezspire patient assistance program. 210 mg Tezspire given SQ in right arm. See MAR for details. Patient discharged with no complaints or concerns. [facility] 10-12-2022 Miscellaneous Notes Received signed forms from patient. Forms faxed to [facility] patient assistance. Will await response. Tezpire forms sent to pt via [employer]. Will upload and send back once complete. Called Tezspire patient assistance program-spoke to Ivette. Patient signature is needed on patient assistance form-unable to do this online. Left VM on patient's cell asking how she would like to obtain form for her signature (MC, fax, in-office?) Received Tezspire patient assistance form via fax. There is a patient and provider portion that needs filled out before faxing back. Unsure if patient gave this info via phone to [employer]spire-will need to call patient. Form in Dr. Betancourt's file for signature. documented in this encounter [facility] 10-06-2022 Note HNO ID: [id number] Author: Alba Barrett RN Service: ? Author Type: ? Type: Progress Notes Filed: 10/06/2022 8:14 AM Note Text: 210 mg Tezspire given SQ into left upper arm without difficulty. LOT: [id number] expires 11/18 No 30 minute wait time. Patient is losing insurance tomorrow. She will reach out to Tezspire program hoping to qualify for the bridge program until her new insurance will activate. She will keep the office updated. [facility] 10-06-2022 History of Present illness Narrative 210 mg Tezspire given SQ into left upper arm without difficulty. LOT: [id number] expires 11/18 No 30 minute wait time. Patient is losing insurance tomorrow. She will reach out to Tezspire program hoping to qualify for the bridge program until her new insurance will activate. She will keep the office updated. documented in this encounter [facility] 09-26-2022 Miscellaneous Notes documented in this encounter [facility] 09-06-2022 History of Present illness Narrative 210 mg Tezspire given SQ in right arm. LOT: [id number] expires 11/18. No 30 minute wait required. Bessie Solomon is a 37 year old female with a history of mixed allergic (weeds) and nonallergic rhinitis and severe persistent asthma who presents for a follow-up visit. Her last visit was 05/30/22. She began treatment with Tezspire on June 14, 2022. She has been tolerating this without adverse reaction. She feels her asthma symptoms have improved since beginning treatment with this medication. She notes less dyspnea when climbing stairs at home. She is now using albuterol 1-2 times per day for acute symptoms. Previously she was using albuterol 4 or more times per day. She still notes intermittent dyspnea. If she does not use her albuterol, this will sometimes progress to wheezing. Nocturnal awakenings have decreased in frequency and now occur about once per week. She took 1 course of systemic steroids for an asthma exacerbation triggered by a viral illness since her last visit. Denies emergency room visits or hospitalizations for respiratory symptoms since her last visit. Her nasal symptoms have also improved. Her insurance formulary will be changing. Advair discus, Breo Ellipta and Symbicort will be preferred over the Advair HFA. (From previous visit: Patient's notes occasional snoring particularly with respiratory illnesses. No witnessed apnea or gasping. No prior sleep study.) (From initial visit on 04/19/22 This is a consultation requested by Dariusz Berry APRN, CNP for an allergy and immunology evaluation. My final recommendations will be communicated back to the requesting healthcare provider(s) by way of shared medical record or via U.[place]. mail. Bessie Solomon is a 36 year old female who presents for further evaluation of poorly controlled asthma. 1 year ago, she began to develop respiratory symptoms including chest tightness and occasional wheezing. In July,, methacholine challenge test completed at [facility] was positive. Symbicort 160-4.5 was prescribed at that time which she used with significant improvement in her symptoms. Asthma symptoms have worsened since she experienced COVID-19 which was treated as an outpatient in September,. She notes shortness of breath described as difficulty with exhalation, chest tightness and intermittent wheezing. Occasional cough. Uses albuterol for acute symptoms at least twice twice a day. Nocturnal awakenings due to respiratory symptoms 4 nights per week. She has been treated with 3-4 courses of systemic corticosteroids in the past year with temporary improvement in her symptoms. Denies prior emergency room visits or hospitalizations for respiratory symptoms. She also complains of nasal congestion, rhinorrhea, and postnasal drip. Symptoms are perennial. She has been using Flonase 1 spray to each nostril once daily without clear improvement in her symptoms. She has taken Claritin and Zyrtec without clear relief. Allergen Model panel completed on March 30, 2022 was negative. No prior allergy skin testing or allergy immunotherapy. She was previously told by her neurologist that she had a nasal polyp. Reports normal sense of taste and smell. Denies a history of recurrent or chronic rhinosinusitis. Denies a history of nasal fracture. She has occasional GERD symptoms associated with ingestion of spicy or acidic foods. Takes Maalox as needed. 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 She does not know details about the reaction. 17 years ago, she developed vomiting and hives immediately after being treated with clindamycin for group B strep during childbirth. At 13 years old, she developed vomiting associated with use of Bactrim. She does not recall experiencing skin rash or any other symptoms with Bactrim. On 03/30/22, IgE level was 14.6 kU/L and AEC was 50) REVIEW OF SYSTEMS: Negative for fevers, chills, night sweats and unintentional weight loss. All other review of systems negative except for those listed above. PAST MEDICAL HISTORY Diagnosis Date Asthma Constipation Diarrhea Dyspnea on exertion History of echocardiogram 05/13/2021 EF 60-65% RV systolic pressure 25mmHg R atrial pressure 3mmHg History of stress test 05/13/2021 no ischemic electrocardiogrpahic changes noted pt developed chest pressure ehich resolved in recovery phase average exercise capacity for age baseline htn with a normal BP response to exercise Loss of weight MEDICATIONS: fluticasone (FLONASE) 50 mcg/actuation nasal spray^SPRAY 1 SPRAY INTO EACH NOSTRIL EVERY DAY^Disp: 48 mL^Rfl: 1 predniSONE (DELTASONE) 20 mg tablet^Take two daily for 5 days.^Disp: 10 tablet^Rfl: 3 albuterol (PROVENTIL) 2.5 mg /3 mL (0.083 %) nebulizer solution^Use 3 mL via nebulizer every 4 hours as needed for wheezing/shortness of breath.^Disp: 36 mL^Rfl: 2 tezepelumab-ekko (TEZSPIRE) 210 mg/1.91 mL (110 mg/mL) syringe^Inject 1.91 mL subcutaneously every 4 weeks.^Disp: 1.91 mL^Rfl: 11 fexofenadine (GM) 180 mg tablet^Take 180 mg by mouth once daily.^Disp: ^Rfl: cetirizine (ZYRTEC) 10 mg tablet^Take 10 mg by mouth once daily.^Disp: ^Rfl: fluticasone-salmeterol HFA (ADVAIR HFA) 230-21 mcg/actuation inhaler^Inhale 2 Puffs as instructed twice daily. Use with spacer. Rinse mouth out after use.^Disp: 1 Inhaler^Rfl: 11 tiotropium bromide (SPIRIVA RESPIMAT) 1.25 mcg/actuation mist^Inhale 2 Puffs as instructed once daily.^Disp: 1 Inhaler^Rfl: 11 azelastine (ASTELIN, ASTEPRO) 0.1% nasal spray^Use 2 Sprays in each nostril twice daily as needed.^Disp: 30 mL^Rfl: 11 montelukast (SINGULAIR) 10 mg tablet^Take 1 tablet by mouth daily at bedtime.^Disp: 30 tablet^Rfl: 11 albuterol HFA (VENTOLIN HFA) 90 mcg/actuation inhaler^Inhale 2 Puffs as instructed every 4 hours as needed for wheezing/shortness of breath (and before sexertion / exercise).^Disp: 1 Each^Rfl: 5 acetaminophen 325 mg cap^Take by mouth.^Disp: ^Rfl: ALLERGIES: Allergies As of Date: 09/06/2022 Allergen Noted Reaction CLINDAMYCIN 05/09/2010 Rash and GI Upset SEPTRA [OTHER] 05/09/2010 Rash and GI Upset Fully Assessed 07/13/2022 PAST SURGICAL HISTORY Procedure Laterality Date APPENDECTOMY CHOLECYSTECTOMY 09/24/2002 Cholecystectomy LAPS ABD PRTM&OMENTUM DX W/WO SPEC BR/WA SPX 11/22/2008 Laparoscopy and D&C FAMILY HISTORY: Allergic rhinitis:no. Asthma: no. Eczema: no. Cystic fibrosis: no. Immunodeficiency: no. 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 Pets in the home: 3 dogs Outdoor animals: There are no outdoor animals Tobacco smoke: No exposure in the home. Physical Exam: GENERAL APPEARANCE:Well appearing, alert, in no acute distress, well-hydrated, well nourished. HEENT: NCAT. EYES: conjunctiva and sclera normal. EARS: External ears normal. Canals clear. TM's normal. NOSE/SINUS:mild edema of the nasal mucosa with scant clear secretions bilaterally THROAT: no erythema NECK:neck supple, no adenopathy HEART:RRR with normal S1 and S2 ,no murmurs, no gallops, no rubs LUNGS: clear to auscultation bilaterally, no wheezes, rales or rhonchi EXTREMITIES:Extremities normal, No deformities, No skin discoloration and No edema SKIN: Skin color, texture, turgor normal. No rashes or lesions. Spirometry pre and postbronchodilator on April 19, 2022: Normal Exhaled nitric oxide on April 19, 2022: 9 PPB ALLERGY SKIN TESTS on April 19, 2022: Positive to weeds on prick testing. Intradermal tests were negative. Negative to penicillin and Pre-Pen on both prick and intradermal tests. Patient took a test dose of amoxicillin 250 mg by mouth and was monitored in the office for 30 minutes afterwards. The patient tolerated the amoxicillin without adverse reaction. ASSESSMENT/PLAN: 1.) Severe persistent asthma: For insurance reasons, Advair 500/50 1 inhalation twice daily was prescribed to replace Advair 230-21. Proper use of the device was reviewed. She was instructed to rinse her mouth out after use. Continue Spiriva 1.25 2 puffs once daily Continue Singulair 10 mg at bedtime Continue albuterol HFA inhaler with spacer 2 puffs or albuterol 2.5 mg nebulized every 4 hours as needed. Continue Tezspire 210 mg subcutaneously every 4 weeks Continue to follow-up with pulmonary medicine. 2.) Mixed allergic (weeds) and nonallergic rhinitis Aggressive environmental controls Continue fluticasone nasal spray to 2 sprays to each nostril once daily in the morning. Continue Astelin 2 sprays to each nostril twice daily as needed. Continue fexofenadine 180 mg once daily as needed. 3.) Discussed medication dosage, usage, side effects, and goals of treatment in detail. 4.) Follow-up in 4 months with repeat spirometry- patient will return sooner should new symptoms or problems arise. Sam Betancourt MD documented in this encounter [facility] 09-06-2022 Nurse Note Patient here for follow up visit. Reports asthma is doing much better. Only using Albuterol 1-2 daily for chest tightness that turns into wheezing. Tolerating Tezspire well. Only concern is insurance coverage:Advair will no longer be covered as of 09-24-22. Preferred: Advair Diskus, Breo Ellipta, Symbicort. Using Previa and Singulair as prescribed. documented in this encounter [facility] 08-11-2022 Nurse Note Tezspire injection administered per order. See emar for details. Lot# [id number] Exp: 08-23-24. Patient supplied medication from specialty pharmacy. Patient left office without symptoms. Next dose requested via fax. Patient has f/u appointment with Dr. Betanocurt 09-06-22. documented in this encounter [facility] 07-31-2022 Miscellaneous Notes [facility] 05-30-22 Received letter from [facility]. Advair will no longer be covered as of 09-24-22. Preferred: Advair Diskus, Breo Ellipta, Symbicort. Please advise. documented in this encounter [facility] 07-13-2022 History of Present illness Narrative Images from the original note were not included. . [facility] [place] Note Patient name: Jenny Solomon PCP: Diane Higuera MD CC: follow-up asthma HPI: Jenny Solomon 36 year old non-smoking female with obesity and asthma. At [place], having issues with her asthma, not well controlled, believed to be due to the weather, heat and humidity, and possibly allergies. Received a prednisone taper which did help. Victoria normal, IgE and Eo count normal, RAST negative. Seen by allergy/immunology with skin prick testing only positive for weeds. Just started Tezpire for severe persistent intrinsic asthma. She has received 2 injections without any adverse reaction. Had recent viral URI, COVID negative. 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 Since her upper respiratory infection she has had more shortness of breath, wheezing, nonproductive cough. She has been using her albuterol several times a day. No nocturnal awakenings. She denies significant nasal congestion or drainage at this time. She is compliant with her inhaled therapy which consists of high-dose Advair, Spiriva and albuterol. She has lost weight, 30 pounds with diet and increased activity. ASTHMA CONTROL TEST Date: 07/13/2022 In the last 4 weeks, how much of the time did your asthma keep you from getting as much done at work or home that you wanted to do? Most of the time (2) In the last 4 weeks, how often have you had shortness of breath? More than once per day (1) In the last 4 weeks, how often did your asthma symptoms (wheezing, coughing, shortness of breath, chest tightness or pain) wake you up at night or earlier than usual? 2 or 3 nights per week (2) In the last 4 weeks, how often have you used your rescue inhaler or nebulizer medication (such as Albuterol, Proventil, Ventolin, Maxair, Xoponex, or Primatene Mist)? 3 or more times per day (1) In the last 4 weeks, how would you rate your asthma control? Poorly controlled (2) Total: 8 DATA: RESPIRATORY THERAPY ORAL EXHALED NITRIC OXIDE SERVICE DATE: 04/19/2022 SERVICE TIME: 2:20 PM Oral Exhaled Nitric Oxide measurement: 9.0 (ppb) Labs: Component Ref Range & Units 3 mo ago IgE <114.0 kU/l 14.6 Component Ref Range & Units 3 mo ago Abs Eosin <0.46 k/uL 0.05 Component Ref Range & Units 3 mo ago [place] Tree IgE <0.35 kU/l <0.35 [place] Tree Class Class 0 Class 0 Chaim Grass IgE <0.35 kU/l <0.35 [place]aim Grass Class Class 0 Class 0 Porsha Grass IgE <0.35 kU/l <0.35 Porsha Grass Class Class 0 Class 0 Short Ragweed IgE <0.35 kU/l <0.35 Short Ragweed Class Class 0 Class 0 Felipe's Quarters IgE <0.35 kU/l <0.35 Felipe[place] Quarters Class Class 0 Class 0 Cat Dander IgE <0.35 kU/l <0.35 Cat Dander Class Class 0 Class 0 Dog Dander IgE <0.35 kU/l <0.35 Dog Dander Class Class 0 Class 0 Cladosporium herbarum IgE <0.35 kU/l <0.35 Cladosporium herbarum Class Class 0 Class 0 Alternaria tenuis IgE <0.35 kU/l <0.35 Alternaria tenuis Class Class 0 Class 0 Dermatophagoides Farinae IgE <0.35 kU/l <0.35 Dermatophagoides Farinae Class Class 0 Class 0 Skin prick only positive to weeds Imaging / Diagnostic Studies: DATE OF EXAM: Dec 31 2021 8:23AM WOX [id number] - XR CHEST 2V FRONTAL/LAT / EXAMINATION: CHEST RADIOGRAPH (2 VIEW FRONTAL & LATERAL) CLINICAL HISTORY: Wheezing Viral illness MQ: [id number]_6 EXAM DATE/TIME: 12/31/2021 8:23 AM COMPARISON: No relevant prior studies available. RESULT: Lines, tubes, and devices: None. Lungs and pleura: No consolidation. No lung mass. No pleural effusion. No pneumothorax. Cardiomediastinal silhouette: Normal cardiomediastinal silhouette. Bones and soft tissues: Unremarkable. I personally reviewed the images and agree with the above assessment PAST MEDICAL HISTORY Diagnosis Date Constipation Diarrhea Dyspnea on exertion History of echocardiogram 05/13/2021 EF 60-65% RV systolic pressure 25mmHg R atrial pressure 3mmHg History of stress test 05/13/2021 no ischemic electrocardiogrpahic changes noted pt developed chest pressure ehich resolved in recovery phase average exercise capacity for age baseline htn with a normal BP response to exercise Loss of weight ALLERGIES Allergen Reactions Clindamycin Rash, GI Upset Septra [Other] Rash, GI Upset albuterol (PROVENTIL) 2.5 mg /3 mL (0.083 %) nebulizer solution^Use 3 mL via nebulizer every 4 hours as needed for wheezing/shortness of breath.^Disp: 36 mL^Rfl: 2 tezepelumab-ekko (TEZSPIRE) 210 mg/1.91 mL (110 mg/mL) syringe^Inject 1.91 mL subcutaneously every 4 weeks.^Disp: 1.91 mL^Rfl: 11 fexofenadine (GM ALLERGY) 180 mg tablet^Take 180 mg by mouth once daily.^Disp: ^Rfl: fluticasone (FLONASE) 50 mcg/actuation nasal spray^SPRAY 1 SPRAY INTO EACH NOSTRIL EVERY DAY^Disp: 16 mL^Rfl: 3 cetirizine (ZYRTEC) 10 mg tablet^Take 10 mg by mouth once daily.^Disp: ^Rfl: fluticasone-salmeterol HFA (ADVAIR HFA) 230-21 mcg/actuation inhaler^Inhale 2 Puffs as instructed twice daily. Use with spacer. Rinse mouth out after use.^Disp: 1 Inhaler^Rfl: 11 tiotropium bromide (SPIRIVA RESPIMAT) 1.25 mcg/actuation mist^Inhale 2 Puffs as instructed once daily.^Disp: 1 Inhaler^Rfl: 11 azelastine (ASTELIN, ASTEPRO) 0.1% nasal spray^Use 2 Sprays in each nostril twice daily as needed.^Disp: 30 mL^Rfl: 11 montelukast (SINGULAIR) 10 mg tablet^Take 1 tablet by mouth daily at bedtime.^Disp: 30 tablet^Rfl: 11 albuterol HFA (VENTOLIN HFA) 90 mcg/actuation inhaler^Inhale 2 Puffs as instructed every 4 hours as needed for wheezing/shortness of breath (and before sexertion / exercise).^Disp: 1 Each^Rfl: 5 acetaminophen 325 mg cap^Take by mouth.^Disp: ^Rfl: Social History Tobacco Use Smoking status: Never Smokeless tobacco: Never Vaping Use Vaping Use: Never used Substance Use Topics Alcohol use: Not Currently Drug use: No PMH, Social history, family history and surgical history reviewed and updated in EMR REVIEW OF SYSTEMS: CONSTITUTIONAL: No fevers, chills, nightsweats, unintended weight loss HEENT: Recent nasal congestion/sinus symptoms. No postnasal drip CARDIOVASCULAR: No chest pain, palpitations, edema. PULM: See HPI GI: No dysphagia/odynophagia, problematic reflux. INTEGUMENTARY: No new skin changes or rashes PHYSICAL EXAMINATION: BP 136/80, pulse 62, RR 17, SPO2 98% on room air, weight 95.3 kg General Appearance: Obese female, no acute distress Skin: Skin color, texture, turgor normal, no suspicious rashes or lesions. Head: Normocephalic, no masses, lesions, tenderness or abnormalities. Eyes: Sclera, conjunctiva normal Oropharynx: No oral lesions or thrush Neck: No JVD, no masses, no adenopathy Lungs: Not labored, normal to percussion, diminished breath sounds, no wheezes Heart: Regular rate and rhythm, no murmurs or gallops Extremities: No edema or clubbing Assessment/Plan: 1. Severe persistent asthma, intrinsic -She will continue on triple inhaler therapy -Continue Tezspire -Oral course of prednisone -If she does well with biologic therapy can de-escalate her therapy starting with Spiriva followed by decrease in ICS dose 2. Class I obesity, BMI 34 -She has lost 30 pounds -Continued weight loss advised -Obesity portends poor control of asthma Nkechi Srivastava MD [facility] documented in this encounter [facility] 06-16-2022 History of Present illness Narrative CC: Patient presents with: Physical: Annual Physical Immunizations: Flu vaccination HPI Jenny Solomon is a 36 year old female established patient of Dr. Higuera who presents today for annual physical exam. Exercise: denies regular aerobic exercise. Diet: Watches diet for salt (salty snacks, added salt, processed frozen/canned foods), sugary/sweet snacks, unhealthy fats: Yes Asthma: Uses albuterol inhaler at least 3 times a day. Sees allergy and pulmonology for this. Just began a new injectable to help control her symptoms of shortness of breath and occasional cough. Has been told her asthma is more intrinsic versus having triggers that cause the exacerbations which is making it difficult to manage. Also has non allergic rhinitis that causes constant nasal drainage. Reports getting muscle cramps throughout the day and night. Worse at night. Feels this occurs with use of her albuterol inhaler and nebulizer. REVIEW OF SYSTEMS General: no fevers, no chills, no night sweats, no recurrent infections, no change in appetite, no change in energy, and no significant changes in weight HEENT: no frequent or significant headaches, no changes in hearing, no visual changes, no nose bleeds Respiratory: no wheezing, no hemoptysis Cardiovascular: no chest pain, no chest pressure, no palpitations, and no swelling GI: No nausea, vomiting, or diarrhea : No history of dysuria, frequency or incontinence Musculoskeletal: Negative for joint pain or swelling, back pain or muscle pain Skin: Negative for lesions, rash, and itching Psych: PHQ2 is 0 Endocrine: no fatigue, no cold intolerance, no heat intolerance, no polyuria, no polyphagia, and no polydipsia Neurologic: No headache, weakness, numbness, tingling, dizziness, syncope. PAST MEDICAL HISTORY Diagnosis Date Constipation Diarrhea Dyspnea on exertion History of echocardiogram 05/13/2021 EF 60-65% RV systolic pressure 25mmHg R atrial pressure 3mmHg History of stress test 05/13/2021 no ischemic electrocardiogrpahic changes noted pt developed chest pressure ehich resolved in recovery phase average exercise capacity for age baseline htn with a normal BP response to exercise Loss of weight PAST SURGICAL HISTORY Procedure Laterality Date APPENDECTOMY CHOLECYSTECTOMY 09/24/2002 Cholecystectomy LAPS ABD PRTM&OMENTUM DX W/WO SPEC BR/WA SPX 11/22/2008 Laparoscopy and D&C ALLERGIES Clindamycin and Septra [Other] MEDICATIONS tezepelumab-ekko (TEZSPIRE) 210 mg/1.91 mL (110 mg/mL) syringe^Inject 1.91 mL subcutaneously every 4 weeks.^Disp: 1.91 mL^Rfl: 11 fexofenadine (GM ALLERGY) 180 mg tablet^Take 180 mg by mouth once daily.^Disp: ^Rfl: fluticasone (FLONASE) 50 mcg/actuation nasal spray^SPRAY 1 SPRAY INTO EACH NOSTRIL EVERY DAY^Disp: 16 mL^Rfl: 3 cetirizine (ZYRTEC) 10 mg tablet^Take 10 mg by mouth once daily.^Disp: ^Rfl: (Patient not taking: Reported on 05/30/2022) fluticasone-salmeterol HFA (ADVAIR HFA) 230-21 mcg/actuation inhaler^Inhale 2 Puffs as instructed twice daily. Use with spacer. Rinse mouth out after use.^Disp: 1 Inhaler^Rfl: 11 tiotropium bromide (SPIRIVA RESPIMAT) 1.25 mcg/actuation mist^Inhale 2 Puffs as instructed once daily.^Disp: 1 Inhaler^Rfl: 11 azelastine (ASTELIN, ASTEPRO) 0.1% nasal spray^Use 2 Sprays in each nostril twice daily as needed.^Disp: 30 mL^Rfl: 11 montelukast (SINGULAIR) 10 mg tablet^Take 1 tablet by mouth daily at bedtime.^Disp: 30 tablet^Rfl: 11 albuterol (PROVENTIL) 2.5 mg /3 mL (0.083 %) nebulizer solution^Use 3 mL via nebulizer every 4 hours as needed for wheezing/shortness of breath.^Disp: 36 mL^Rfl: 2 albuterol HFA (VENTOLIN HFA) 90 mcg/actuation inhaler^Inhale 2 Puffs as instructed every 4 hours as needed for wheezing/shortness of breath (and before sexertion / exercise).^Disp: 1 Each^Rfl: 5 acetaminophen 325 mg cap^Take by mouth.^Disp: ^Rfl: FAMILY HISTORY Problem Relation Age of Onset other (cerical cancer) Mother Asthma Sister Heart Maternal Grandmother Social History Tobacco Use Smoking status: Never Smokeless tobacco: Never Vaping Use Vaping Use: Never used Substance Use Topics Alcohol use: Not Currently Drug use: No PHYSICAL EXAM BP 128/80 Pulse 68 Resp 16 Wt 96.2 kg (212 lb) LMP 12/15/2021 BMI 34.74 kg/m General Appearance: well appearing, in no acute distress, alert Pysch: mood and affect broad and appropriate Skin: Skin color, texture, turgor normal for age; Eyes: conjunctiva pink and moist, no icterus, sclera white, non-injected Ears: external ears normal to inspection and palpation, canals clear, Left tympanic membrane normal. , Right tympanic membrane normal Nose/sinus: Nares normal. Septum midline. Mucosa normal. No drainage. Neck: Thyroid normal size and symmetric without palpable nodules, No adenopathy Oropharynx: tongue midline and normal, soft palate, uvula, and tonsils normal, palpation of salivary glands negative Lymph nodes: No cervical lymphadenopathy and No supraclavicular lymphadenopathy Lungs: Lungs clear to auscultation. No wheezing, rhonchi, rales. Heart: RRR without murmur, gallop, or rubs. No ectopy Abdomen: Abdomen soft, non-tender. Bowel sounds normal. No masses, organomegaly Extremities: No deformities, edema, skin discoloration, clubbing or cyanosis. Good capillary refill. Musculoskeletal: No joint swelling, deformity, or tenderness Neurological: Gait normal. Reflexes normal and symmetric. Sensation grossly intact. HEPATITIS B(1 of 3 - 3-dose series) Never done PNEUMOCOCCAL(1 - PCV) Never done COVID-19 VACCINE(4 - Booster for Moderna series) due on 04/25/2022 BP CONTROLLED (<130/80) due on 05/06/2022 INFLUENZA(1) due on 05/25/2022 DEPRESSION SCREENING due on 07/23/2022 ANNUAL PCP TEAM CHRONIC DISEASE VISIT due on 02/28/2023 PAP TESTING due on 11/10/2026 HPV TESTING due on 11/10/2026 DTAP,TDAP,TD(6 - Td or Tdap) due on 2028 SPIROMETRY Completed HEPATITIS C SCREENING Discontinued HIV SCREENING Discontinued ASSESSMENT/PLAN: 1. Annual physical exam - ICD9: V70.0, ICD10: Z00.00 (primary diagnosis) - Counseled on healthy diet and regular exercise - Calcium intake with supplements or by diet of 1000 mg/day for under 50, 1274-1357 mg/day for 50+ - Discussed need and benefit for weight loss. BMI 34.74 kg/(m^2) - Depression screening tool completed and reviewed with patient. Based on score and interview, patient is not at risk for depression and recommended no further intervention at this time. - Follow up for annual exam in one year - CBC + DIFF - COMP METABOLIC PANEL - LIPID PANEL BASIC 2. 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 Muscle cramping - ICD9: 729.82, ICD10: R25.2 - discussed with patient benefits of massage, stretching, regular exercise, and warm compresses to help - also discussed if labs are normal and cramping continues, to talk with pulmonology if other inhalers would be an option for her - CBC + DIFF - MAGNESIUM BLD - COMP METABOLIC PANEL 4. Need for influenza vaccination - ICD9: V04.81, ICD10: Z23 - INFLUENZA VACCINE QUADRIVALENT 6 MO - 64 YRS IM 5. Encounter for immunization - ICD9: V03.89, ICD10: Z23 - PNEUMOCOCCAL VACCINE (PREVNAR 20) Prescription instructions reviewed with patient as applicable. Potential red flag symptoms discussed with the patient. Reviewed appropriate action plan to take if red flag symptoms occur. Patient agreeable to treatment plan. Rupal Storm APRN.CNP documented in this encounter [facility] 06-14-2022 History of Present illness Narrative Risks, benefits alternatives and personnel for treatment with Tezspire were reviewed with the patient and she consents to proceed. Written consent was obtained at today's visit. Sam Betancourt MD Pt identified by name and birthdate. Date 06/14/2022 Time 3:04 PM Patient is here for Tezspire injection. Patient recieves Tezspire from [facility]. 210 mg Tezspire given SQ in left arm. See MAR for details. Patient instructed to wait for 60 minutes post injection to monitor for signs and symptoms of reaction. No reaction noted 60 minutes post injection. Patient discharged with no complaints or concerns. documented in this encounter [facility] 06-12-2022 Miscellaneous Notes The following approved medication requests have been transmitted electronically. Requested Prescriptions Signed Prescriptions Disp Refills tezepelumab-ekko (TEZSPIRE) 210 mg/1.91 mL (110 mg/mL) syringe 1.91 mL 11 Sig: Inject 1.91 mL subcutaneously every 4 weeks. Authorizing Provider: SAM BETANCOURT MD Tezspire approved 05/10/22 to 12/08/22 Use [facility] We have the 1st dose for injection- please escribe new script to pharmacy for future doses. Appeal letter, clinicals, appropriate labs, and PFT's faxed to appeals department at [phone]. Will await determination. Letter completed for the appeal. Please forward to the patient's insurance company. Sam Betancourt MD Received fax from [facility]-Tezspire was denied due to: Patient must try formulary alternatives (Dupixent, Fasenra, Nucala or Xolair). Written letter needed for appeal. Fax appeal letter and clinicals/labs to [phone] OR# [id number] Scheduled patient for 1st injection of Tezspire with the starter kit from the company. One hour wait. No epi pen needed. Every injection needs to be done in office with 30 minute wait. PA form faxed to [facility] dept fax # [phone]. Will await determination. Prior authorization form completed. Based on the patient's IgE level, allergy skin test results, absolute eosinophil count and FeNO, she does not qualify for treatment with Dupixent, Fasenra, Nucala or Xolair. Sam Betacnourt MD Received summary of benefits. Tezspire covered at 100% through [employer]. No copay, no deductible amount. PA needed-[facility] PA form initiated. Form indicates patient needs to try Nucala, Fasenra, Dupixent or Xolair first. Please advise. Tezspire is sending starter pack jun 06 for patient but PA needs to be completed also. Forms completed for Tezspire, on desk for signature. Will fax to once completed. documented in this encounter [facility] 05-30-2022 History of Present illness Narrative Bessie Solomon is a 36 year old female with a history of mixed allergic (weeds) and nonallergic rhinitis and severe persistent asthma who presents for a follow-up visit. Her last visit was April 19, 2022. Astelin nasal spray, Advair 230-21 and Spiriva 1.25 were prescribed at that time. Her symptoms have improved somewhat since her last visit. She continues to have cough, chest tightness and shortness of breath. Also with intermittent wheezing. She is using short acting beta agonists a few times per day for acute symptoms. Awakening 3 nights per week due to respiratory symptoms. Denies treatment with systemic steroids, ER visits or hospitalizations for asthma since her last visit. She notes intermittent rhinorrhea. Overall, her nasal symptoms have improved since her last visit. Patient's notes occasional snoring particularly with respiratory illnesses. No witnessed apnea or gasping. No prior sleep study. (From initial visit on 04/19/22 This is a consultation requested by Dariusz Berry APRN, CNP for an allergy and immunology evaluation. My final recommendations will be communicated back to the requesting healthcare provider(s) by way of shared medical record or via [place] mail. Bessie Solomon is a 36 year old female who presents for further evaluation of poorly controlled asthma. 1 year ago, she began to develop respiratory symptoms including chest tightness and occasional wheezing. In July,, methacholine challenge test completed at [facility] was positive. Symbicort 160-4.5 was prescribed at that time which she used with significant improvement in her symptoms. Asthma symptoms have worsened since she experienced COVID-19 which was treated as an outpatient in September,. She notes shortness of breath described as difficulty with exhalation, chest tightness and intermittent wheezing. Occasional cough. Uses albuterol for acute symptoms at least twice twice a day. Nocturnal awakenings due to respiratory symptoms 4 nights per week. She has been treated with 3-4 courses of systemic corticosteroids in the past year with temporary improvement in her symptoms. Denies prior emergency room visits or hospitalizations for respiratory symptoms. She also complains of nasal congestion, rhinorrhea, and postnasal drip. Symptoms are perennial. She has been using Flonase 1 spray to each nostril once daily without clear improvement in her symptoms. She has taken Claritin and Zyrtec without clear relief. Allergen [facility] panel completed on March 30, 2022 was negative. No prior allergy skin testing or allergy immunotherapy. She was previously told by her neurologist that she had a nasal polyp. Reports normal sense of taste and smell. Denies a history of recurrent or chronic rhinosinusitis. Denies a history of nasal fracture. She has occasional GERD symptoms associated with ingestion of spicy or acidic foods. Takes Maalox as needed. 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 She does not know details about the reaction. 17 years ago, she developed vomiting and hives immediately after being treated with clindamycin for group B strep during childbirth. At 13 years old, she developed vomiting associated with use of Bactrim. She does not recall experiencing skin rash or any other symptoms with Bactrim. On 03/30/22, IgE level was 14.6 kU/L and AEC was 50) REVIEW OF SYSTEMS: Negative for fevers, chills, night sweats and unintentional weight loss. All other review of systems negative except for those listed above. PAST MEDICAL HISTORY Diagnosis Date Constipation Diarrhea Dyspnea on exertion History of echocardiogram 05/13/2021 EF 60-65% RV systolic pressure 25mmHg R atrial pressure 3mmHg History of stress test 05/13/2021 no ischemic electrocardiogrpahic changes noted pt developed chest pressure ehich resolved in recovery phase average exercise capacity for age baseline htn with a normal BP response to exercise Loss of weight MEDICATIONS: fluticasone (FLONASE) 50 mcg/actuation nasal spray SPRAY 1 SPRAY INTO EACH NOSTRIL EVERY DAY cetirizine (ZYRTEC) 10 mg tablet Take 10 mg by mouth once daily. fluticasone-salmeterol HFA (ADVAIR HFA) 230-21 mcg/actuation inhaler Inhale 2 Puffs as instructed twice daily. Use with spacer. Rinse mouth out after use. tiotropium bromide (SPIRIVA RESPIMAT) 1.25 mcg/actuation mist Inhale 2 Puffs as instructed once daily. azelastine (ASTELIN, ASTEPRO) 0.1% nasal spray Use 2 Sprays in each nostril twice daily as needed. montelukast (SINGULAIR) 10 mg tablet Take 1 tablet by mouth daily at bedtime. albuterol (PROVENTIL) 2.5 mg /3 mL (0.083 %) nebulizer solution Use 3 mL via nebulizer every 4 hours as needed for wheezing/shortness of breath. albuterol HFA (VENTOLIN HFA) 90 mcg/actuation inhaler Inhale 2 Puffs as instructed every 4 hours as needed for wheezing/shortness of breath (and before sexertion / exercise). acetaminophen (TYLENOL) 325 mg cap Take by mouth. ALLERGIES: Allergies As of Date: 05/30/2022 Allergen Noted Reaction CLINDAMYCIN 05/09/2010 Rash and GI Upset SEPTRA [OTHER] 05/09/2010 Rash and GI Upset Fully Assessed 04/19/2022 PAST SURGICAL HISTORY Procedure Laterality Date APPENDECTOMY CHOLECYSTECTOMY 09/24/2002 Cholecystectomy LAPS ABD PRTM&OMENTUM DX W/WO SPEC BR/WA SPX 11/22/2008 Laparoscopy and D&C FAMILY HISTORY: Allergic rhinitis:no. Asthma: no. Eczema: no. Cystic fibrosis: no. Immunodeficiency: no. 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 Pets in the home: 3 dogs Outdoor animals: There are no outdoor animals Tobacco smoke: No exposure in the home. Physical Exam: GENERAL APPEARANCE:Well appearing, alert, in no acute distress, well-hydrated, well nourished. HEENT: NCAT. EYES: conjunctiva and sclera normal. EARS: External ears normal. Canals clear. TM's normal. NOSE/SINUS:mild edema of the nasal mucosa with scant clear secretions bilaterally THROAT: no erythema NECK:neck supple, no adenopathy HEART:RRR with normal S1 and S2 ,no murmurs, no gallops, no rubs LUNGS: clear to auscultation bilaterally, no wheezes, rales or rhonchi ABDOMEN:soft, nontender, nondistended, without organomegaly or palpable masses EXTREMITIES:Extremities normal, No deformities, No skin discoloration and No edema SKIN: Skin color, texture, turgor normal. No rashes or lesions. Spirometry pre and postbronchodilator on April 19, 2022: Normal Exhaled nitric oxide on April 19, 2022: 9 PPB ALLERGY SKIN TESTS on April 19, 2022: Positive to weeds on prick testing. Intradermal tests were negative. Negative to penicillin and Pre-Pen on both prick and intradermal tests. Patient took a test dose of amoxicillin 250 mg by mouth and was monitored in the office for 30 minutes afterwards. The patient tolerated the amoxicillin without adverse reaction. ASSESSMENT/PLAN: 1.) Severe persistent asthma, poorly controlled: Continue Advair 230-21 2 puffs twice daily. Instructed to use with spacer and rinse mouth out after use. Continue Spiriva 1.25 2 puffs once daily Continue Singulair 10 mg at bedtime Continue albuterol HFA inhaler with spacer 2 puffs or albuterol 2.5 mg nebulized every 4 hours as needed. The risks, benefits, alternatives and personnel for treatment with Tezspire 210 mg subcutaneously every 4 weeks were discussed with the patient and she would like to proceed. My office will seek insurance preapproval of this medication. Continue to follow-up with pulmonary medicine. 2.) Mixed allergic (weeds) and nonallergic rhinitis Aggressive environmental controls Continue fluticasone nasal spray to 2 sprays to each nostril once daily in the morning. Continue Astelin 2 sprays to each nostril twice daily as needed. Continue fexofenadine 180 mg once daily as needed. 3.) Discussed medication dosage, usage, side effects, and goals of treatment in detail. 4.) Follow-up 3 mos after starting Tezspire (if patient does not start treatment with this medication, recommend routine follow-up in 4 to 6 months) - patient will return sooner should new symptoms or problems arise. Sam Betancourt MD documented in this encounter [facility] 05-30-2022 Nurse Note Patient using astelin and flonase, also taking gm. Reports still has runny nose, but nasal symptoms are better. Using albuterol about 3 times a week during night. [place] using 3 times daily. Using Spiriva and Advair. documented in this encounter [facility] 04-19-2022 Instructions Sam Betancourt MD - 04/19/2022 4:08 PM EDT You are allergic to weeds (April, May and June) Change from Symbicort to Advair 230 21 2 puffs twice daily. Use every day on a regular basis. Use with spacer and rinse mouth out after use. Use Spiriva 1.25 mg 2 inhalations once a day on a regular basis Continue Singulair 10 mg at bedtime Continue albuterol HFA inhaler with spacer 2 puffs or albuterol 2.5 mg nebulized every 4 hours as needed. Use fluticasone nasal spray 2 sprays to each nostril once daily every morning Start azelastine/Astelin nasal spray 2 sprays to each nostril twice a day as needed. Try in the evenings first. Depending on clinical course, treatment with Tezepelumab may be considered documented in this encounter [facility] 04-19-2022 History of Present illness Narrative This is a consultation requested by Dariusz Berry APRN, CNP for an allergy and immunology evaluation. My final recommendations will be communicated back to the requesting healthcare provider(s) by way of shared medical record or via [place] mail. Bessie Solomon is a 36 year old female who presents for further evaluation of poorly controlled asthma. 1 year ago, she began to develop respiratory symptoms including chest tightness and occasional wheezing. In July,, methacholine challenge test completed at [facility] was positive. Symbicort 160-4.5 was prescribed at that time which she used with significant improvement in her symptoms. Asthma symptoms have worsened since she experienced COVID-19 which was treated as an outpatient in September,. She notes shortness of breath described as difficulty with exhalation, chest tightness and intermittent wheezing. Occasional cough. Uses albuterol for acute symptoms at least twice twice a day. Nocturnal awakenings due to respiratory symptoms 4 nights per week. She has been treated with 3-4 courses of systemic corticosteroids in the past year with temporary improvement in her symptoms. Denies prior emergency room visits or hospitalizations for respiratory symptoms. She also complains of nasal congestion, rhinorrhea, and postnasal drip. Symptoms are perennial. She has been using Flonase 1 spray to each nostril once daily without clear improvement in her symptoms. She has taken Claritin and Zyrtec without clear relief. Allergen [facility] panel completed on March 30, 2022 was negative. No prior allergy skin testing or allergy immunotherapy. She was previously told by her neurologist that she had a nasal polyp. Reports normal sense of taste and smell. Denies a history of recurrent or chronic rhinosinusitis. Denies a history of nasal fracture. She has occasional GERD symptoms associated with ingestion of spicy or acidic foods. Takes Maalox as needed. 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 She does not know details about the reaction. 17 years ago, she developed vomiting and hives immediately after being treated with clindamycin for group B strep during childbirth. At 13 years old, she developed vomiting associated with use of Bactrim. She does not recall experiencing skin rash or any other symptoms with Bactrim. On 03/30/22, IgE level was 14.6 kU/L and AEC was 50 REVIEW OF SYSTEMS: SINUSITIS: The patient does not suffer from frequent sinopulmonary infections. ASTHMA: See [place] ECZEMA: The patient has no history of eczema. URTICARIA:The patient does not have a history of urticaria and/or angioedema. GERD: The patient does not have a history of GERD. INSECT STING: The patient does not have a history of systemic reaction to insect sting. FOOD ALLERGY:The patient denies history of food allergy. LATEX: The patient does not have a history of adverse reaction to latex. All other review of systems negative except for those listed above. PAST MEDICAL HISTORY Diagnosis Date Constipation Diarrhea Dyspnea on exertion History of echocardiogram 05/13/2021 EF 60-65% RV systolic pressure 25mmHg R atrial pressure 3mmHg History of stress test 05/13/2021 no ischemic electrocardiogrpahic changes noted pt developed chest pressure ehich resolved in recovery phase average exercise capacity for age baseline htn with a normal BP response to exercise Loss of weight MEDICATIONS: cetirizine (ZYRTEC) 10 mg tablet Take 10 mg by mouth once daily. fluticasone (FLONASE) 50 mcg/actuation nasal spray Use 1 [place] in each nostril once daily. montelukast (SINGULAIR) 10 mg tablet Take 1 tablet by mouth daily at bedtime. albuterol (PROVENTIL) 2.5 mg /3 mL (0.083 %) nebulizer solution Use 3 mL via nebulizer every 4 hours as needed for wheezing/shortness of breath. albuterol HFA (VENTOLIN HFA) 90 mcg/actuation inhaler Inhale 2 Puffs as instructed every 4 hours as needed for wheezing/shortness of breath (and before sexertion / exercise). budesonide-formoterol (SYMBICORT) 160-4.5 mcg/actuation inhaler Inhale 2 Puffs as instructed twice daily. acetaminophen (TYLENOL) 325 mg cap Take by mouth. ALLERGIES: Allergies As of Date: 04/19/2022 Allergen Noted Reaction CLINDAMYCIN 05/09/2010 Rash and GI Upset PENICILLINS 05/09/2010 Rash SEPTRA [OTHER] 05/09/2010 Rash and GI Upset Fully Assessed 04/19/2022 PAST SURGICAL HISTORY Procedure Laterality Date APPENDECTOMY CHOLECYSTECTOMY 09/24/2002 Cholecystectomy LAPS ABD PRTM&OMENTUM DX W/WO SPEC BR/WA SPX 11/22/2008 Laparoscopy and D&C FAMILY HISTORY: Allergic rhinitis:no. Asthma: no. Eczema: no. Cystic fibrosis: no. Immunodeficiency: no. 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 Pets in the home: 3 dogs Outdoor animals: There are no outdoor animals Tobacco smoke: No exposure in the home. Physical Exam: GENERAL APPEARANCE:Well appearing, alert, in no acute distress, well-hydrated, well nourished. HEENT: NCAT. EYES: conjunctiva and sclera normal. EARS: External ears normal. Canals clear. TM's normal. NOSE/SINUS:mild edema of the nasal mucosa with scant clear secretions bilaterally THROAT: no erythema NECK:neck supple, no adenopathy HEART:RRR with normal S1 and S2 ,no murmurs, no gallops, no rubs LUNGS: clear to auscultation bilaterally, no wheezes, rales or rhonchi ABDOMEN:soft, nontender, nondistended, without organomegaly or palpable masses EXTREMITIES:Extremities normal, No deformities, No skin discoloration and No edema SKIN: Skin color, texture, turgor normal. No rashes or lesions. ALLERGY SKIN TESTS: Positive to weeds on prick testing. Intradermal tests were negative. Negative to penicillin and Pre-Pen on both prick and intradermal tests. Patient took a test dose of amoxicillin 250 mg by mouth and was monitored in the office for 30 minutes afterwards. The patient tolerated the amoxicillin without adverse reaction. ASSESSMENT/PLAN: 1.) Severe persistent asthma, poorly controlled: Advair 230 21 2 puffs twice daily was prescribed to replace Symbicort 160-4.5. Instructed to use with spacer and rinse mouth out after use. Start Spiriva 1.25 2 puffs once daily Continue Singulair 10 mg at bedtime Continue albuterol HFA inhaler with spacer 2 puffs or albuterol 2.5 mg nebulized every 4 hours as needed. Depending on clinical course, treatment withTezspire 210 mg subcutaneously every 4 weeks may be considered 2.) Mixed allergic (weeds) and nonallergic rhinitis Aggressive environmental controls Change fluticasone nasal spray to 2 sprays to each nostril once daily in the morning. Start Astelin 2 sprays to each nostril twice daily as needed. Start fexofenadine 180 mg once daily as needed. 3.) History of allergy to penicillin and/or penicillin-type antibiotic: Allergy skin tests to penicillin were negative. The patient took a test dose of amoxicillin and tolerated this without adverse reaction. The patient is at low risk for a severe, immediate, IgE-mediated reaction to penicillin, amoxicillin and other penicillin-type antibiotics. Skin tests are unreliable for predicting delayed reactions. 4.) Discussed medication dosage, usage, side effects, and goals of treatment in detail. 5.) Follow-up in 6 weeks - patient will return sooner should new symptoms or problems arise. Sam Betancourt MD documented in this encounter [facility] 04-19-2022 Nurse Note Pt states since got covid the URI in September, breathing has not been the same. Pt is having to use albuterol twice a day. Pt states symbicort was enough prior to covid, but is not anymore. Pt takes 2 puffs twice a day. Pt states has been having nasal congestion since then as well, has been taking zyrtec and singulair and flonase. Pt had penicillin reaction when she was a child, pt has not had since. documented in this encounter [facility] 04-19-2022 History of Present illness Narrative PULM FUNCTION SMARTBLOCK: Provider: Sam Betancourt MD Assisting Tech: Madan Webb RRT Spirometry w/BD: 1 Exhaled Nitric Oxide: 1 documented in this encounter [facility] 04-19-2022 Procedure note Associated Order(s): NITRIC OXIDE, EXHALED RESPIRATORY THERAPY ORAL EXHALED NITRIC OXIDE SERVICE DATE: 04/19/2022 SERVICE TIME: 2:20 PM Oral Exhaled Nitric Oxide measurement: 9.0 (ppb) Normal: Adult 5-20 ppb, pediatric (<12 years) 5-15 ppb High Normal / Increased: Adult 20-35 ppb, pediatric (<12 years) 15-25 ppb Moderately raised exhaled Nitric Oxide may indicate underlying inflammation, but note that: Cold and influenza can raise exhaled Nitric Oxide and some patients have higher baseline exhaled Nitric Oxide levels than others. High: Adult >35 ppb, pediatric (<12 years) >25 ppb Indicative of ongoing eosinophilic inflammation. Symptomatic patient likely to respond to steroids. Possible causes (if already on steroids): Poor compliance, recent allergen exposure, steroid dose inadequate, and steroid resistance. Note that not all patients with high exhaled nitric oxide levels display symptoms. Oral Exhaled Nitric Oxide measurement (Previous Encounters) Test Date Oral Exhaled Nitric Oxide (ppb) 04/19/2022 9.0 03/30/2022 9.0 07/26/2021 10.0 NAME: Madan Webb RRT PATIENT NAME: Jenny Solomon DATE: April 19, 2022 TIME: 2:20 PM documented in this encounter [facility] 03-30-2022 History of Present illness Narrative PULM FUNCTION SMARTBLOCK: Provider: Bessie Gregg PA-C Assisting Tech: JULIAN Parikh Exhaled Nitric Oxide: 1 documented in this encounter [facility] 03-30-2022 History of Present illness Narrative [facility] [place], 03/30/2022: Name: Jenny Solomon : 1985 The patient is here today with Gabe, spouse, who attends the entire visit, exam and discussion. HPI: Jenny Solomon is a 36 yo female morbidly obese never smoker with PMH significant for asthma. Methacholine Inhalation Challenge 08/02/2021 at [facility] positive for reactivity suggesting asthma. Patient started on Symbicort. Covid 12 October 2021. Did not require hospitalization. The patient is here for follow up of asthma. Since the last Pulmonary Clinic visit 07/26/[address] Srivastava, the patient admits to compliance with prescribed maintenance Rx: Symbicort and Singulair. Was evaluated in on 12/30 secondary to asthma exacerbation. Treated with Prednisone burst and Tessalon Perles. CXR showed no acute abnormality. Twice daily rescue bronchodilator use, with some relief. Prior to change in seasons and increased heat and humidity asthma was well controlled. Taking Mucinex as needed. Typically 1 tablet daily. Waking up 3-4 times nocturnal awakenings per month with asthma symptoms. Occasional cough. Reports chest tightness and then feels like she cannot breathe. No wheezing. No dyspnea at rest. Exertional dyspnea climbing stairs, carrying laundry. Current triggers include bleach, fire smoke, perfumes/scented lotions, smoking. Post nasal drip and sinus congestion. No lower extremity edema. Attempting to exercise and watching diet in attempts to lose weight. Has 3 dogs in the home. No disruption in taste or voice associated with use of inhaled corticosteroid. No tremor, palpitations, or muscle cramping associated with bronchodilator inhalation. ASTHMA CONTROL TEST Date: 03/30/2022 1. In the last 4 weeks, how much of the time did your asthma keep you from getting as much done at work or home that you wanted to do? Most of the time (2) 2. In the last 4 weeks, how often have you had shortness of breath? More than once per day (1) 3. In the last 4 weeks, how often did your asthma symptoms (wheezing, coughing, shortness of breath, chest tightness or pain) wake you up at night or earlier than usual? 4 or more nights per week (1) 4. In the last 4 weeks, how often have you used your rescue inhaler or nebulizer medication (such as Albuterol, Proventil, Ventolin, Maxair, Xoponex, or Primatene Mist)? 1 or 2 times per day (2) 5. In the last 4 weeks, how would you rate your asthma control? Poorly controlled (2) Total: less than 15 PMH: Updated with patient today. FAMH: Updated with patient today. SOCH: Updated with patient today. ROS: General: Generally feels short of breat and chest tightness. Appetite good. Eyes, Ears, nose, throat: See HPI. No hoarseness. Vision stable. Cardiac: No angina, edema, orthopnea. GI: No heartburn, dysphagia, diarrhea. Musculoskeletal: No pain. Neuro: No headache, focal weakness, tremor. Skin: No rash. Otherwise negative. IMMUNIZATIONS Prevnar 13 - xx Pneumovax 23 - xx Influenza - xx COVID-19 - 02/28/2022, 01/25/2021, 12/28/2020 Allergies were verified and updated, and medications were reconciled with the patient at this visit. PHYSICAL EXAMINATION: BP 132/82 Pulse 74 Resp 17 Wt 102.5 kg (226 lb) LMP 12/15/2021 SpO2 99% BMI 37.04 kg/m Gen: No acute distress. Cooperative with examination. ENT: Nares clear. Oral hygeine good. Pharynx clear. No sign of oral thrush. Resp: No stridor, accessory respiratory muscle use. No crackles, wheezes. CV: Regular rythm. Heart tones normal. Radial pulses normal. Abd: Non distended. MSK: No kyphoscoliosis. Ext: Warm and well perfused. No cyanosis. Skin: No rash, eczema, urticaria. Neuro: Mental status normal. No tremor. DATA REVIEW: PFT, 07/26/2021 IMPRESSION: Spirometry is normal. Electronically Signed On 07-26-2021 16:19:23 EDT by Nkechi Srivastava M.D. Exhaled nitric oxide ([place]), 03/30/2022: 9 07/26/2021: 10 (normal < 20). Positive [facility] 07/2021 CXR, 12/31/2021 IMPRESSION: No acute radiographic abnormality. RESULT: Lines, tubes, and devices: None. Lungs and pleura: No consolidation. No lung mass. No pleural effusion. No pneumothorax. Cardiomediastinal silhouette: Normal cardiomediastinal silhouette. Bones and soft tissues: Unremarkable. ASSESSMENT/PLAN: 1. Moderate persistent asthma with acute exacerbation - ICD9: 493.92, ICD10: J45.41 (primary diagnosis) Asthma less than well controlled with ACT of 8. Most likely secondary to change of seasons or allergy triggers. Nitric oxide today normal. Will treat with Prednisone burst. - PREDNISONE 20 MG TABLET 2. Moderate persistent asthma without complication - ICD9: 493.90, ICD10: J45.40 Continue with Symbicort and Singulair. Albuterol HFA inhaler, 2 inhalations 10 15 minutes prior to activities associated with shortness of breath, and as needed for rescue relief of shortness of breath or wheezing, up to 4 times daily. Will check IgE, eosinophils and allergy screen. Patient referred to allergy per PCP and has appointment scheduled 04/19 - [facility] - [facility] - EOSINOPHIL ABS COUNT - NITRIC OXIDE, EXHALED 3. Allergic rhinitis, unspecified seasonality, unspecified trigger - ICD9: 477.9, ICD10: J30.9 See #2 Start Flonase 1 spray each nostril nightly. - FLUTICASONE PROPIONATE 50 MCG/ACTUATION NASAL SPRAY,SUSPENSION 4. Post-nasal drip - ICD9: 784.91, ICD10: R09.82 See #3 - FLUTICASONE PROPIONATE 50 MCG/ACTUATION NASAL SPRAY,SUSPENSION I addressed the questions of the patient and spouse, and they expressed understanding and acceptance of my answers. Bessie Gregg PA-C documented in this encounter [facility] 02-28-2022 History of Present illness Narrative SUBJECTIVE: COVID-19 VACCINE(3 - Booster for Moderna series) due on 06/27/2021 ANNUAL PCP TEAM CHRONIC DISEASE VISIT due on 07/28/2021 Presents for follow-up visit today. HPI excerpted from previous visit: Since she was last here she was seen by pulmonology, Dr. Srivastava July 2021 she underwent testing which was consistent with asthma. She recommended continuing with albuterol but recommended starting a steroid combined long-acting bronchodilator inhaler as well. She was seen by Dr. Robison neurosurgery for telangiectasia. No role for surgery noted given natural history of capillary telangiectasia, unlikely contributing to current symptoms and stability on repeat imaging. He recommended considering headache neurology consult. Repeat MRI recommended in 3 years. Today reports she is feeling significantly improved. She notes that inhaler has helped quite a bit. She notes that she has had intermittent headache attributed to eyestrain. She has ophthalmology visit scheduled in August with [facility], notes she has macular changes and infantile cataracts. Blood pressure has been well controlled since last here. Today notes that asthma seems less well controlled currently. Using albuterol inhaler at least daily recently in addition to long-acting inhaler. She notes need for inhaler prior to exercise, following exercise, after exposure to triggers such as humidity perfumes or environmental allergens. She notes significant amount of nasal drainage. Triggers for allergy type symptoms include perfumes, presumed chlorine at the pool. Humidity seems to make asthma symptoms worse. She feels best in air conditioning. She notes no prior difficulties with allergies in the past. Has been taking Zyrtec which seems to help somewhat. Review of Systems Constitutional: Negative. Respiratory: Negative for cough and shortness of breath. Cardiovascular: Negative for chest pain and palpitations. Objective BP 124/86 Pulse 72 Resp 16 Wt 104.3 kg (230 lb) LMP 12/15/2021 BMI 37.69 kg/m Physical Exam Vitals and nursing note reviewed. Constitutional: Appearance: Normal appearance. HENT: Head: Normocephalic and atraumatic. Nose: Mucosal edema and rhinorrhea present. Eyes: Conjunctiva/sclera: Conjunctivae normal. Neck: Thyroid: No thyroid mass, thyromegaly or thyroid tenderness. Vascular: No carotid bruit. Cardiovascular: Rate and Rhythm: Normal rate and regular rhythm. Pulses: Normal pulses. Carotid pulses are 2+ on the right side and 2+ on the left side. Radial pulses are 2+ on the right side and 2+ on the left side. Heart sounds: Normal heart sounds. Pulmonary: Effort: Pulmonary effort is normal. Breath sounds: Normal breath sounds and air entry. No stridor or decreased air movement. Abdominal: General: Bowel sounds are normal. Palpations: Abdomen is soft. Musculoskeletal: Right lower leg: No edema. Left lower leg: No edema. Skin: General: Skin is warm and dry. Neurological: General: No focal deficit present. Mental Status: She is alert and oriented to person, place, and time. ALLERGIES Allergen Reactions Clindamycin Rash, GI Upset Penicillins Rash Septra [Other] Rash, GI Upset Medication albuterol (PROVENTIL) 2.5 mg /3 mL (0.083 %) nebulizer solution Use 3 mL via nebulizer every 4 hours as needed for wheezing/shortness of breath. albuterol HFA (VENTOLIN HFA) 90 mcg/actuation inhaler Inhale 2 Puffs as instructed every 4 hours as needed for wheezing/shortness of breath (and before sexertion / exercise). budesonide-formoterol (SYMBICORT) 160-4.5 mcg/actuation inhaler Inhale 2 Puffs as instructed twice daily. acetaminophen (TYLENOL) 325 mg cap Take by mouth. montelukast (SINGULAIR) 10 mg tablet Take 1 tablet by mouth daily at bedtime. ibuprofen (MOTRIN ORAL) Take by mouth. trimethoprim-polymyxin (POLYTRIM) 10,000 unit- 1 mg/mL ophthalmic solution Use 2 Drops in both eyes three times daily. benzonatate (TESSALON PERLE) 100 mg capsule Take 1-2 capsules tid prn, no more than 6 in 24 hours. PAST MEDICAL HISTORY Diagnosis Date Constipation Diarrhea Dyspnea on exertion History of echocardiogram 05/13/2021 EF 60-65% RV systolic pressure 25mmHg R atrial pressure 3mmHg History of stress test 05/13/2021 no ischemic electrocardiogrpahic changes noted pt developed chest pressure ehich resolved in recovery phase average exercise capacity for age baseline htn with a normal BP response to exercise Loss of weight Social History Tobacco Use Smoking status: Never Smoker Smokeless tobacco: Never Used Vaping Use Vaping Use: Never used Substance Use Topics Alcohol use: Not Currently Drug use: No Component Latest Ref Rng & Units 04/08/2021 WBC 3.70 - 11.00 k/uL 6.80 RBC 3.90 - 5.20 m/uL 4.36 Hemoglobin 11.5 - 15.5 g/dL 13.1 Hematocrit 36.0 - 46.0 % 39.8 MCV 80.0 - 100.0 fL 91.3 MCH 26.0 - 34.0 pG 30.0 MCHC 30.5 - 36.0 g/dL 32.9 RDW-CV 11.5 - 15.0 % 12.4 Platelet Count 150 - 400 k/uL 234 MPV 9.0 - 12.7 fL 12.0 Neut% % 63.2 Abs Neut (ANC) 1.45 - 7.50 k/uL 4.30 Lymph% % 26.6 Abs Lymph 1.00 - 4.00 k/uL 1.81 Moore% % 8.4 Abs Moore <0.87 k/uL 0.57 Eosin% % 0.9 Abs Eosin <0.46 k/uL 0.06 Baso% % 0.9 Abs Baso <0.11 k/uL 0.06 Nucleated Reds 0 /100 WBC 0.0 Absolute nRBC <0.01 k/uL <0.01 Diff Type Auto Diff Protein, Total 6.3 - 8.0 g/dL 7.2 Albumin 3.9 - 4.9 g/dL 4.5 Calcium 8.5 - 10.2 mg/dL 9.8 Bilirubin, Total 0.2 - 1.3 mg/dL 0.5 Alkaline Phosphatase 34 - 123 U/L 72 AST 13 - 35 U/L 19 Glucose 74 - 99 mg/dL 92 BUN 7 - 21 mg/dL 11 Creatinine 0.58 - 0.96 mg/dL 0.78 Sodium 136 - 144 mmol/L 141 Potassium 3.7 - 5.1 mmol/L 4.2 Chloride 97 - 105 mmol/L 106 (H) CO2 22 - 30 mmol/L 24 Anion Gap 9 - 18 mmol/L 11 ALT 7 - 38 U/L 12 eGFR- >60 eGFR-All Other Races . >60 TSH 0.270 - 4.200 uU/mL 1.920 ASSESSMENT/PLAN: 1. Uncomplicated asthma, unspecified asthma severity, unspecified whether persistent - ICD9: 493.90, ICD10: J45.909 (primary diagnosis) Recommend she use inhaler or nebulizer as often as as needed for now. Addition of montelukast. Follow-up with Dr. Srivastava - schedule follow up appt - MONTELUKAST 10 MG TABLET - CONSULT TO ALLERGY/IMMUNOLOGY 2. Encounter for immunization - ICD9: V03.89, ICD10: Z23 - PFI[employer]ER[employer] COVID-19 VACCINE, AGE 12+ YR ([facility]) 3. Allergic rhinitis, unspecified seasonality, unspecified trigger - ICD9: 477.9, ICD10: J30.9 - MONTELUKAST 10 MG TABLET - CONSULT TO ALLERGY/IMMUNOLOGY She notes that she seems to have developed allergies which are contributing to decreased control of her asthma. Recommend she see Dr. Betancourt for further evaluation and recommendations / treatment as indicated. Dariusz Berry APRN.CNS Medical Decision Making: Problems: Moderate: 1+ chronic illnesses with change Risk: Moderate: Drug management Medical Decision Making Level: 4 - Moderate documented in this encounter [facility] 01-30-2022 Miscellaneous Notes bro documented in this encounter [facility] 01-01-2022 Miscellaneous Notes Patient notified by a [employer] message. No bacterial infection noted on chest x-ray. Continue supportive therapies as discussed. Follow-up with PCP if symptoms are not improving. Jayden Banegas APRN.BENY documented in this encounter [facility] 12-30-2021 Instructions Barby Daugherty APRN.CNP - 12/30/2021 6:02 PM EDT Return to [facility] between 8-1130 am for chest xray * Prednisone 40 mg (2 tablets) per day for 5 days, take in morning or early in day * Do not NSAIDs during this 5 day course (ibuprofen, naproxen, Motrin, Aleve, Advil) Tylenol only during prednisone use * Follow up with primary care provider if no improvement with treatment Nebulizer every 4-6 hours prn Continue mucinex and prescribed inhalers Tessalon Perles 1-2 every 8 hours, do not combine this with robitussin or delsym Eye appears to be viral conjunctivitis - if persists start eye drops. * Seek medical care immediately, call 911, go to ER if you have chest pain, difficulty breathing, shortness of breath, inability to swallow. documented in this encounter [facility] 12-30-2021 History of Present illness Narrative Subjective The history is provided by the patient. No senior underwriting assistant was used. Nasal Congestion Associated symptoms include congestion, coughing, shortness of breath and a sore throat. Pertinent negatives include no chills, ear pain or headaches. HPI Jenny Solomon is a 36 year old female who presents today for CC of sore throat, and loss of voice. She also is having wheezing, cough, congestion. She has used prescribed inhalers and mucinex without relief. She started with diarrhea for 2 days, last Sunday, then sore throat, nasal congestion and cough, and in past 24 hours has moved to chest. She feels tight and increased wheezing. She has a h/o mod persistent asthma. She did not test for flu or covid. She had covid in September 2021 BP 124/76 Pulse 84 Temp 36.9 C (98.5 F) Resp 18 Wt 109.7 kg (241 lb 12.8 oz) LMP 12/15/2021 SpO2 97% BMI 39.63 kg/m Social History Tobacco Use Smoking status: Never Smoker Smokeless tobacco: Never Used Vaping Use Vaping Use: Never used Substance Use Topics Alcohol use: Not Currently Drug use: No PAST MEDICAL HISTORY Diagnosis Date Constipation Diarrhea Dyspnea on exertion History of echocardiogram 05/13/2021 EF 60-65% RV systolic pressure 25mmHg R atrial pressure 3mmHg History of stress test 05/13/2021 no ischemic electrocardiogrpahic changes noted pt developed chest pressure ehich resolved in recovery phase average exercise capacity for age baseline htn with a normal BP response to exercise Loss of weight I have confirmed and edited as necessary, the [facility] Review of Systems Constitutional: Positive for malaise/fatigue. Negative for chills and fever. HENT: Positive for congestion and sore throat. Negative for ear pain and sinus pain. Eyes: Positive for discharge and redness. Respiratory: Positive for cough, shortness of breath and wheezing. Negative for sputum production. Cardiovascular: Negative for chest pain. Musculoskeletal: Negative for myalgias. Neurological: Negative for headaches. Objective Physical Exam Vitals and nursing note reviewed. HENT: Head: Normocephalic and atraumatic. Right Ear: Tympanic membrane, ear canal and external ear normal. Left Ear: Tympanic membrane and ear canal normal. Mouth/Throat: Pharynx: Uvula midline. Cardiovascular: Rate and Rhythm: Normal rate and regular rhythm. Heart sounds: Normal heart sounds. Pulmonary: Effort: Pulmonary effort is normal. Breath sounds: Decreased breath sounds and wheezing present. Comments: Albuterol nebulizer treatment done, improvement in breath sounds increase air exchage, and improvement in PO2. Lymphadenopathy: Head: Right side of head: No submental, submandibular or tonsillar adenopathy. Left side of head: No submental, submandibular or tonsillar adenopathy. Cervical: No cervical adenopathy. Skin: General: Skin is warm and dry. Neurological: Mental Status: She is alert. Psychiatric: Mood and Affect: Affect normal. ASSESSMENT/PLAN: 1. Viral illness - ICD9: 079.99, ICD10: B34.9 (primary diagnosis) - Discussed viral etiology and rationale for treatment. - Symptomatic treatment with prn analgesia - Supportive care with fluids and rest Continue mucinex and prescribed inhalers - XR CHEST 2V FRONTAL/LAT 2. Wheezing - ICD9: 786.07, ICD10: R06.2 Prednisone 40 mg (2-20mg tablets) po QD for 5 days Albuteral neb/inhaler every 4 hours - ALBUTEROL SULFATE 2.5 MG/3 ML (0.083 %) SOLUTION FOR NEBULIZATION - XR CHEST 2V FRONTAL/LAT - NEBULIZER 3. Cough - ICD9: 786.2, ICD10: R05.9 Tessalon perls, inhaler - XR CHEST 2V FRONTAL/LAT 4. Acute conjunctivitis of right eye, unspecified acute conjunctivitis type - ICD9: 372.00, ICD10: H10.31 Viral - see medication orders - will start if worsening symptoms. Will get cxr tomorrow, will call with results and if treatment needed Diagnosis and treatment plan were discussed and questions were answered to the patient's satisfaction. Pt acknowledged understanding of concepts and follow up plan. Specific signs and symptoms that would indicate the need for higher level of care were discussed in detail warranting prompt ER evaluation. Barby Daugherty APRN.BENY documented in this encounter [facility] documented as of this encounter (statuses as of 12/30/2021) [facility] History of Past illness Narrative* Problem Noted Date Resolved Date Diarrhea 07/19/2010 08/14/2019 documented as of this encounter (statuses as of 01/01/2022) [facility] History of Past illness Narrative* Problem Noted Date Resolved Date Diarrhea 07/19/2010 08/14/2019 documented as of this encounter (statuses as of 01/30/2022) [facility] History of Past illness Narrative* Problem Noted Date Resolved Date Diarrhea 07/19/2010 08/14/2019 documented as of this encounter (statuses as of 02/28/2022) [facility] History of Past illness Narrative* Problem Noted Date Resolved Date Diarrhea 07/19/2010 08/14/2019 documented as of this encounter (statuses as of 03/30/2022) [facility] History of Past illness Narrative* Problem Noted Date Resolved Date Diarrhea 07/19/2010 08/14/2019 documented as of this encounter (statuses as of 03/30/2022) [facility] History of Past illness Narrative* Problem Noted Date Resolved Date Diarrhea 07/19/2010 08/14/2019 documented as of this encounter (statuses as of 04/11/2022) [facility] History of Past illness Narrative* Problem Noted Date Resolved Date Diarrhea 07/19/2010 08/14/2019 documented as of this encounter (statuses as of 04/19/2022) [facility] History of Past illness Narrative* Problem Noted Date Resolved Date Diarrhea 07/19/2010 08/14/2019 documented as of this encounter (statuses as of 04/21/2022) [facility] History of Past illness Narrative* Problem Noted Date Resolved Date Diarrhea 07/19/2010 08/14/2019 documented as of this encounter (statuses as of 04/25/2022) [facility] History of Past illness Narrative* Problem Noted Date Resolved Date Diarrhea 07/19/2010 08/14/2019 documented as of this encounter (statuses as of 05/31/2022) [facility] History of Past illness Narrative* Problem Noted Date Resolved Date Diarrhea 07/19/2010 08/14/2019 documented as of this encounter (statuses as of 06/12/2022) [facility] History of Past illness Narrative* Problem Noted Date Resolved Date Diarrhea 07/19/2010 08/14/2019 documented as of this encounter (statuses as of 06/14/2022) [facility] History of Past illness Narrative* Problem Noted Date Resolved Date Diarrhea 07/19/2010 08/14/2019 documented as of this encounter (statuses as of 06/16/2022) [facility] History of Past illness Narrative* Problem Noted Date Resolved Date Diarrhea 07/19/2010 08/14/2019 documented as of this encounter (statuses as of 07/13/2022) [facility] History of Past illness Narrative* Problem Noted Date Resolved Date Diarrhea 07/19/2010 08/14/2019 documented as of this encounter (statuses as of 08/11/2022) [facility] History of Past illness Narrative* Problem Noted Date Resolved Date Diarrhea 07/19/2010 08/14/2019 documented as of this encounter (statuses as of 08/18/2022) [facility] History of Past illness Narrative* Problem Noted Date Resolved Date Diarrhea 07/19/2010 08/14/2019 documented as of this encounter (statuses as of 09/08/2022) [facility] History of Past illness Narrative* Problem Noted Date Resolved Date Diarrhea 07/19/2010 08/14/2019 documented as of this encounter (statuses as of 09/28/2022) [facility] History of Past illness Narrative* Problem Noted Date Resolved Date Diarrhea 07/19/2010 08/14/2019 documented as of this encounter (statuses as of 09/29/2022) [facility] History of Past illness Narrative* Problem Noted Date Resolved Date Diarrhea 07/19/2010 08/14/2019 documented as of this encounter (statuses as of 10/06/2022) [facility] History of Past illness Narrative* Problem Noted Date Resolved Date Diarrhea 07/19/2010 08/14/2019 documented as of this encounter (statuses as of 10/17/2022) [facility] History of Past illness Narrative* Problem Noted Date Resolved Date Diarrhea 07/19/2010 08/14/2019 documented as of this encounter (statuses as of 10/25/2022) [facility] History of Past illness Narrative* Problem Noted Date Resolved Date Diarrhea 07/19/2010 08/14/2019 documented as of this encounter (statuses as of 11/22/2022) [facility] History of Past illness Narrative* Problem Noted Date Resolved Date Diarrhea 07/19/2010 08/14/2019 documented as of this encounter (statuses as of 12/01/2022) [facility] History of Past illness Narrative* Problem Noted Date Resolved Date Diarrhea 07/19/2010 08/14/2019 documented as of this encounter (statuses as of 12/05/2022) [facility] History of Past illness Narrative* Problem Noted Date Resolved Date Diarrhea 07/19/2010 08/14/2019 documented as of this encounter (statuses as of 12/06/2022) [facility] History of Past illness Narrative* Problem Noted Date Resolved Date Diarrhea 07/19/2010 08/14/2019 documented as of this encounter (statuses as of 12/18/2022) [facility] History of Past illness Narrative* Problem Noted Date Resolved Date Diarrhea 07/19/2010 08/14/2019 documented as of this encounter (statuses as of 01/04/2023) [address]26-2010 History of Past illness Narrative* Problem Noted Date Resolved Date Diarrhea 07/19/2010 08/14/2019 documented as of this encounter (statuses as of 01/04/2023) [facility] History of Past illness Narrative* Problem Noted Date Diagnosed Date Resolved Date Diarrhea 07/19/2010 08/14/2019 documented as of this encounter (statuses as of 04/01/2023) [facility] History of Past illness Narrative* Problem Noted Date Diagnosed Date Resolved Date Diarrhea 07/19/2010 08/14/2019 documented as of this encounter (statuses as of 05/04/2023) [facility] History of Past illness Narrative* Problem Noted Date Diagnosed Date Resolved Date Diarrhea 07/19/2010 08/14/2019 documented as of this encounter (statuses as of 05/18/2023) [facility] History of Past illness Narrative* Problem Noted Date Diagnosed Date Resolved Date Diarrhea 07/19/2010 08/14/2019 documented as of this encounter (statuses as of 05/21/2023) [facility] History of Past illness Narrative* Problem Noted Date Diagnosed Date Resolved Date Diarrhea 07/19/2010 08/14/2019 documented as of this encounter (statuses as of 05/21/2023) [facility] History of Past illness Narrative* Problem Noted Date Diagnosed Date Resolved Date Diarrhea 07/19/2010 08/14/2019 documented as of this encounter (statuses as of 05/22/2023) [facility] History of Past illness Narrative* Problem Noted Date Diagnosed Date Resolved Date Diarrhea 07/19/2010 08/14/2019 documented as of this encounter (statuses as of 05/30/2023) [facility] History of Past illness Narrative* Problem Noted Date Diagnosed Date Resolved Date Diarrhea 07/19/2010 08/14/2019 documented as of this encounter (statuses as of 06/25/2023) [facility] History of Past illness Narrative* Problem Noted Date Diagnosed Date Resolved Date Diarrhea 07/19/2010 08/14/2019 documented as of this encounter (statuses as of 07/05/2023) [facility] History of Past illness Narrative* Problem Noted Date Diagnosed Date Resolved Date Diarrhea 07/19/2010 08/14/2019 documented as of this encounter (statuses as of 07/10/2023) [facility] History of Past illness Narrative* Problem Noted Date Diagnosed Date Resolved Date Diarrhea 07/19/2010 08/14/2019 documented as of this encounter (statuses as of 07/11/2023) [facility] History of Past illness Narrative* Problem Noted Date Diagnosed Date Resolved Date Diarrhea 07/19/2010 08/14/2019 documented as of this encounter (statuses as of 07/14/2023) [facility] note* Diagnosis Viral illness- Primary Unspecified viral infection, in conditions classified elsewhere and of unspecified site Wheezing Cough Acute conjunctivitis of right eye, unspecified acute conjunctivitis type documented in this encounter [facility] note* Diagnosis Uncomplicated asthma, unspecified asthma severity, unspecified whether persistent- Primary Encounter for immunization Need for other specified prophylactic vaccination against single bacterial disease Allergic rhinitis, unspecified seasonality, unspecified trigger documented in this encounter [facility] note* Diagnosis Moderate persistent asthma without complication Unspecified asthma documented in this encounter [facility] note* Diagnosis Moderate persistent asthma with acute exacerbation- Primary Moderate persistent asthma without complication Unspecified asthma Allergic rhinitis, unspecified seasonality, unspecified trigger Post-nasal drip Postnasal drip documented in this encounter [facility] note* Diagnosis Asthma, unspecified asthma severity, unspecified whether complicated, unspecified whether persistent- Primary documented in this encounter [facility] note* Diagnosis Asthma, unspecified asthma severity, unspecified whether complicated, unspecified whether persistent documented in this encounter [facility] note* Diagnosis Asthma, unspecified asthma severity, unspecified whether complicated, unspecified whether persistent documented in this encounter [facility] note* Diagnosis Severe persistent asthma without complication- Primary Seasonal allergic rhinitis due to pollen [id number] adverse effect of medication, initial encounter documented in this encounter [facility] note* Diagnosis Allergic rhinitis, unspecified seasonality, unspecified trigger Post-nasal drip Postnasal drip documented in this encounter [facility] note* Diagnosis Severe persistent asthma without complication- Primary Seasonal allergic rhinitis due to pollen Chronic rhinitis [facility] Diagnosis Severe persistent asthma without complication- Primary [facility]* Diagnosis Annual physical exam- Primary Routine general medical examination at a health care facility Severe persistent asthma without complication Muscle cramping Cramp of limb Need for influenza vaccination Need for prophylactic vaccination and inoculation against influenza Encounter for immunization Need for other specified prophylactic vaccination against single bacterial disease [facility]* Diagnosis Severe persistent asthma, unspecified whether complicated- Primary Class 1 obesity due to excess calories with serious comorbidity and body mass index (BMI) of 34.0 to 34.9 in adult [facility]* Diagnosis Severe persistent asthma without complication- Primary [facility]* Diagnosis Allergic rhinitis, unspecified seasonality, unspecified trigger Post-nasal drip Postnasal drip [facility]* Diagnosis Severe persistent asthma without complication- Primary Chronic rhinitis Seasonal allergic rhinitis due to pollen [facility]* Diagnosis Severe persistent asthma without complication- Primary [facility] Diagnosis Asthma, unspecified asthma severity, unspecified whether complicated, unspecified whether persistent- Primary Allergy, subsequent encounter [facility]* Diagnosis APPOINTMENT CANCELLED- Primary [facility]* Diagnosis Severe persistent asthma without complication- Primary Pain in joint, multiple sites Class 1 obesity due to excess calories without serious comorbidity with body mass index (BMI) of 33.0 to 33.9 in adult [facility]* Diagnosis Back strain, initial encounter- Primary [facility] Diagnosis Loose stools- Primary Abnormal feces [facility]* Diagnosis Bilateral hip pain- Primary Pain in joint, pelvic region and thigh Back strain, initial encounter Class 1 obesity due to excess calories with body mass index (BMI) of 33.0 to 33.9 in adult, unspecified whether serious comorbidity present [facility]* Diagnosis Diarrhea, unspecified type- Primary Nausea Nausea alone Epigastric pain Abdominal pain, epigastric Rectal bleeding Hemorrhage of rectum and anus [facility]* Diagnosis Alternating constipation and diarrhea- Primary Other symptoms involving digestive system Rectal fullness Other symptoms involving digestive system Increased mucus in stool Nonspecific abnormal finding in stool contents Change in bowel habits Other symptoms involving digestive system Bleeding hemorrhoids Unspecified hemorrhoids with other complication [facility]* Diagnosis Diarrhea, unspecified type- Primary Nausea Nausea alone documented in this encounter 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 documented in this encounter [facility] for referral (narrative)* Outpatient Procedure (Routine) - Closed Specialty Diagnoses / Procedures Referred By Juan Miguel valdovinos Referred To [facility] [place] Diagnoses Moderate persistent asthma without complication Procedures NITRIC OXIDE, EXHALED NITRIC OXIDE GAS DETERMINATION Bessie Gregg PA-C [address] [address] [address] [place] [address] [place], [place] [id number] Referral ID Status Reason Start Date Expiration Date V isits Requested Visits Authorized [id number] Closed Auto-Generate d Referral 03/30/2022 04/29/2023 1 1 [facility] for referral (narrative)* Outpatient Procedure (Routine) - Pending Review Specialty Diagnoses / Procedures Referred By Contcynthia valdovinos Referred To [facility] Diagnoses Asthma, unspecified asthma severity, unspecified whether complicated, unspecified whether persistent Procedures NITRIC OXIDE, EXHALED NITRIC OXIDE GAS DETERMINATION Sam Betancourt MD [address] [address] Referral ID Status Reason Start Date Expiration Date Visits Requested Visits Authorized [id number] Pending Review Auto-Generat ed Referral 04/11/2022 05/11/2023 1 1 * Outpatient Procedure (Routine) - Pending Review Specialty Diagnoses / Procedures Referred By Contac t Referred To Contact [facility] Diagnoses Asthma, unspecified asthma severity, unspecified whether complicated, unspecified whether persistent Procedures SPIROMETRY - BASELINE AND POST DILATOR BRNCDILAT RSPSE SPMTRY PRE&POST-BRNCDILAT ADMSam Austin MD [address] [address] [address] [place] [address] [place] [id number] Referral ID Status Reason Start Date Expiration Date Visits Requested Visits Authorized [id number] Pending Review Auto-Generat ed Referral 04/11/2022 05/11/2023 1 1 [facility] for referral (narrative)* Outpatient Procedure (Routine) - Authorized Specialty Diagnoses / Procedures Referred By Contac t Referred To Contact [facility] Diagnoses Severe persistent asthma without complication Procedures SPIROMETRY - BASELINE AND POST DILATOR BRNCDILAT RSPSE SPMTRY PRE&POST-BRNCDILAT ADMSam Austin MD [address] [address] [address] [place] [address] [place] [id number] Referral ID Status Reason Start Date Expiration Date Visits Requested Visits Authorized [id number] Authorized Auto-Generat ed Referral 01/05/2023 10/06/2023 1 1 [facility] for referral (narrative)* Diagnostic Procedure Only (Routine) - Closed Specialty Diagnoses / Procedures Referred By Contac t Referred To Contact XR IMAGING Diagnoses Bilateral hip pain Procedures XR HIP BILATERAL 5V PEL/AP/LAT EACH HIP RADEX HIPS BILATERAL WITH PELVIS MINIMUM 5 VIEWS Diane Higuera MD [address] [place] [address] [place] [id number] Referral ID Status Reason Start Date Expiration Date V isits Requested Visits Authorized [id number] Closed Auto-Generate d Referral 05/25/2023 09/23/2023 1 1 [facility] for referral (narrative)* Outpatient Procedure (Routine) - Authorized Specialty Diagnoses / Procedures Referred By Contac t Referred To Contact [facility] [place] Diagnoses Diarrhea, unspecified type Nausea Epigastric pain Rectal bleeding Procedures COLONOSCOPY DIAGNOSTIC COLONOSCOPY FLX DX W/COLLJ SPEC WHEN PFRMD Tiago Leblanc MD [address] [place] [address] [address] Referral ID Status Reason Start Date Expiration Date Visits Requested Visits Authorized [id number] Authorized Auto-Generat ed Referral 06/26/2023 06/26/2024 1 1 * Outpatient Procedure (Routine) - Authorized Specialty Diagnoses / Procedures Referred By Contac t Referred To Contact [facility] [place] Diagnoses Diarrhea, unspecified type Nausea Epigastric pain Rectal bleeding Procedures EGD DIAGNOSTIC ESOPHAGOGASTRODUODENOSC OPY TRANSORAL DIAGNOSTIC Tiago Leblanc MD [address] [place] [address] [address] Referral ID Status Reason Start Date Expiration Date Visits Requested Visits Authorized [id number] Authorized Auto-Generat ed Referral 06/26/2023 06/26/2024 1 1 [facility] for referral (narrative)* Diagnostic Procedure Only (Routine) - Closed Specialty Diagnoses / Procedures Referred By Contac t Referred To Contact MR IMAGING Diagnoses Bilateral hip pain 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 Procedures MRI HIP WO IVCON RIGHT MRI ANY JT LOWER EXTREM W/O CONTRAST MATRL Billateral MRI Rigth and left Diane Higuera MD [address] [place] [address] [place] [address] Referral ID Status Reason Start Date Expiration Date V isits Requested Visits Authorized [id number] Closed Auto-Generate d Referral 08/09/2023 02/05/2024 1 1 [facility] for visit Narrative* Diagnostic Procedure Only (Routine) - Closed Specialty Diagnoses / Procedures Referred By Juan Miguel t Referred To Contact MR IMAGING Diagnoses Bilateral hip pain 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 Procedures MRI HIP WO IVCON RIGHT MRI ANY JT LOWER EXTREM W/O CONTRAST MATRL Billateral MRI Rigth and left Diane Higuera MD [address] [place] [address] [place] [id number] Referral ID Status Reason Start Date Expiration Date V isits Requested Visits Authorized [id number] Closed Auto-Generate d Referral 08/09/2023 02/05/2024 1 1 [facility] Summary Purpose Family History No Family History Records FoundNo Family History Records Found Advance Directives No Advanced Directives Records FoundNo Advanced Directives Records Found Medications Administered Section Inactive Administered Medications - up to 3 most recent administrations Medication Order MAR Action Action Date Dose Rate Site albuterol 2.5 mg /3 mL (0.083 %) 2.5 mg (PROVENTIL) 2.5 mg, INHALATION, ONCE, 1 dose, On Sun12/30/21 at 1800 Given 12/30/2021 6:26 PM EDT 2.5 mg Inactive Administered Medications - up to 3 most recent administrations Medication Order MAR Action Action Date Dose Rate Site amoxicillin 250 mg oral liquid (AMOXIL) 250 mg, ORAL, ONCE, 1 dose, On Sun04/19/22 at 1730, SHAKE WELL. REFRIGERATE., Please document the antimicrobial indication: Empiric Given 04/19/2022 4:46 PM EDT 250 mg Active Administered Medications - up to 3 most recent administrations Medication Order MAR Action Action Date Dose Rate Site tezepelumab-ekko 210 mg subcutaneous injection (TEZSPIRE) 210 mg, SUBCUTANEOUS, EVERY 4 WEEKS, First dose on [place] 06/15/22 at 0700, Until Discontinued, Inject subcutaneously into the upper arm, thigh, or abdomen. Refrigerate Given 06/14/2022 3:04 PM EDT 210 mg Arm, Left Active Administered Medications - up to 3 most recent administrations Medication Order MAR Action Action Date Dose Rate Site tezepelumab-ekko 210 mg subcutaneous injection (TEZSPIRE) 210 mg, SUBCUTANEOUS, EVERY 4 WEEKS, First dose on [place] 06/15/22 at 0700, Until Discontinued, Inject subcutaneously into the upper arm, thigh, or abdomen. Refrigerate Given 08/11/2022 9:45 AM EST 210 mg Arm, Left Active Administered Medications - up to 3 most recent administrations Medication Order MAR Action Action Date Dose Rate Site tezepelumab-ekko 210 mg subcutaneous injection (TEZSPIRE) 210 mg, SUBCUTANEOUS, EVERY 4 WEEKS, First dose on [place] 06/15/22 at 0700, Until Discontinued, Inject subcutaneously into the upper arm, thigh, or abdomen. Refrigerate Given 09/06/2022 3:45 PM EST 210 mg Arm, Right Active Administered Medications - up to 3 most recent administrations Medication Order MAR Action Action Date Dose Rate Site tezepelumab-ekko 210 mg subcutaneous injection (TEZSPIRE) 210 mg, SUBCUTANEOUS, EVERY 4 WEEKS, First dose on [facility] 06/15/22 at 0700, Until Discontinued, Inject subcutaneously into the upper arm, thigh, or abdomen. Refrigerate Given 10/06/2022 8:11 AM EST 210 mg Arm, Left Active Administered Medications - up to 3 most recent administrations Medication Order MAR Action Action Date Dose Rate Site tezepelumab-ekko 210 mg subcutaneous injection (TEZSPIRE) 210 mg, SUBCUTANEOUS, EVERY 4 WEEKS, First dose on [facility] 06/15/22 at 0700, Until Discontinued, Inject subcutaneously into the upper arm, thigh, or abdomen. Refrigerate Given 12/01/2022 10:58 AM EST 210 mg Arm, Left Inactive Administered Medications - up to 3 most recent administrations Medication Order MAR Action Action Date Dose Rate Site keTORolac 30 mg injection (Toradol) 30 mg, INTRAMUSCULAR, ONCE, 1 dose, On Sun04/13/23 at 1300, Ketorolac (Toradol) is indicated for the short-term (up to 5 days) management of moderately severe acute pain. Continuation of ketorolac (Toradol) beyond 5 days increases the risk of developing serious adverse events. Please verify the duration of therapy for ketorolac (Toradol), If ordered PRN for pain, patient/guardian may elect to receive this medication for higher pain levels INSTEAD of the opioid, if preferred: Yes Given 04/13/2023 1:15 PM EDT 30 mg Buttocks, Left Reason for Referral Specialty Diagnoses / Procedures Referred By Contac t Referred To Contact Allergy Diagnoses Uncomplicated asthma, unspecified asthma severity, unspecified whether persistent Allergic rhinitis, unspecified seasonality, unspecified trigger Procedures CONSULT TO ALLERGY/IMMUNOLOGY OFFICE/OUTPATIENT [facility] 60-74 MINUTES Dariusz Berry APRN.ELIGIBILITY SUPERVISOR [address] [place] [address] Referral ID Status Reason Start Date Expiration Date Visits Requested Visits Authorized [id number] Pending Review PCP Requested Referral 02/28/2022 02/28/2023 1 1 Specialty Diagnoses / Procedures Referred By Contac t Referred To Contact Allergy Diagnoses Asthma, unspecified asthma severity, unspecified whether complicated, unspecified whether persistent Allergy, subsequent encounter Procedures CONSULT TO ALLERGY/IMMUNOLOGY OFFICE/OUTPATIENT [facility] 60-74 MINUTES Nkechi Srivastava MD [address] [place] [address] Sam Betancourt MD [address] [place] [address] Referral ID Status Reason Start Date Expiration Date Visits Requested Visits Authorized [id number] Pending Review PCP Requested Referral 12/05/2022 12/05/2023 1 1 Specialty Diagnoses / Procedures Referred By Contac t Referred To Contact General Surgery Diagnoses Change in bowel habits Rectal fullness Increased mucus in stool Bleeding hemorrhoids Alternating constipation and diarrhea Procedures CONSULT TO GENERAL SURGERY Diane Higuera MD [address] [place] [address] [facility] [address] [place] [address] Referral ID Status Reason Start Date Expiration Date Visits Requested Visits Authorized [id number] Ref Not Required PCP Requested Referral 06/16/2023 06/15/2024 1 1 Specialty Diagnoses / Procedures Referred By Contac t Referred To Contact Gastroenterology Diagnoses Change in bowel habits Functional diarrhea Alternating constipation and diarrhea Procedures CONSULT TO GASTROENTEROLOGY OFFICE/OUTPATIENT [facility] 60-74 MINUTES Alyssa Inman APRN.[employer]IE[employer] [address] [place] [address] Referral ID Status Reason Start Date Expiration Date Visits Requested Visits Authorized [id number] Pending Review PCP Requested Referral 3 08/06/2024 1 1 Additional Source Comments INFORMATION SOURCE (unrecogn ized section and content) DATE CREATED AUTHOR AUTHOR'S ORGANIZ ATION 09/25/[address] [facility] Source Comments (unrecognize d section and content) In the event this informatio n is protected by the Federal Confidentiality of Alcohol and Drug Abuse Patient Records regulations: The Federal rules restrict any use of the information to criminally investigate or prosecute any alcohol or drug abuse patient.[facility]healthIn the event this information is protected by the Federal Confidentiality of Alcohol and Drug Abuse Patient Records regulations: The Federal rules restrict any use of the information to criminally investigate or prosecute any alcohol or drug abuse patient.TrihealthIn the event this information is protected by the Federal Confidentiality of Alcohol and Drug Abuse Patient Records regulations: The Federal rules restrict any use of the information to criminally investigate or prosecute any alcohol or drug abuse patient.TrihealthIn the event this information is protected by the Federal Confidentiality of Alcohol and Drug Abuse Patient Records regulations: The Federal rules restrict any use of the information to criminally investigate or prosecute any alcohol or drug abuse patient.TrihealthIn the event this information is protected by the Federal Confidentiality of Alcohol and Drug Abuse Patient Records regulations: The Federal rules restrict any use of the information to criminally investigate or prosecute any alcohol or drug abuse patient.TrihealthIn the event this information is protected by the Federal Confidentiality of Alcohol and Drug Abuse Patient Records regulations: The Federal rules restrict any use of the information to criminally investigate or prosecute any alcohol or drug abuse patient.TrihealthIn the event this information is protected by the Federal Confidentiality of Alcohol and Drug Abuse Patient Records regulations: The Federal rules restrict any use of the information to criminally investigate or prosecute any alcohol or drug abuse patient.TrihealthIn the event this information is protected by the Federal Confidentiality of Alcohol and Drug Abuse Patient Records regulations: The Federal rules restrict any use of the information to criminally investigate or prosecute any alcohol or drug abuse patient.TrihealthIn the event this information is protected by the Federal Confidentiality of Alcohol and Drug Abuse Patient Records regulations: The Federal rules restrict any use of the information to criminally investigate or prosecute any alcohol or drug abuse patient.TrihealthIn the event this information is protected by the Federal Confidentiality of Alcohol and Drug Abuse Patient Records regulations: The Federal rules restrict any use of the information to criminally investigate or prosecute any alcohol or drug abuse patient.TrihealthIn the event this information is protected by the Federal Confidentiality of Alcohol and Drug Abuse Patient Records regulations: The Federal rules restrict any use of the information to criminally investigate or prosecute any alcohol or drug abuse patient.TrihealthIn the event this information is protected by the Federal Confidentiality of Alcohol and Drug Abuse Patient Records regulations: The Federal rules restrict any use of the information to criminally investigate or prosecute any alcohol or drug abuse patient.TrihealthIn the event this information is protected by the Federal Confidentiality of Alcohol and Drug Abuse Patient Records regulations: The Federal rules restrict any use of the information to criminally investigate or prosecute any alcohol or drug abuse patient.TrihealthIn the event this information is protected by the Federal Confidentiality of Alcohol and Drug Abuse Patient Records regulations: The Federal rules restrict any use of the information to criminally investigate or prosecute any alcohol or drug abuse patient.TrihealthIn the event this information is protected by the Federal Confidentiality of Alcohol and Drug Abuse Patient Records regulations: The Federal rules restrict any use of the information to criminally investigate or prosecute any alcohol or drug abuse patient.TrihealthIn the event this information is protected by the Federal Confidentiality of Alcohol and Drug Abuse Patient Records regulations: The Federal rules restrict any use of the information to criminally investigate or prosecute any alcohol or drug abuse patient.TrihealthIn the event this information is protected by the Federal Confidentiality of Alcohol and Drug Abuse Patient Records regulations: The Federal rules restrict any use of the information to criminally investigate or prosecute any alcohol or drug abuse patient.TrihealthIn the event this information is protected by the Federal Confidentiality of Alcohol and Drug Abuse Patient Records regulations: The Federal rules restrict any use of the information to criminally investigate or prosecute any alcohol or drug abuse patient.TrihealthIn the event this information is protected by the Federal Confidentiality of Alcohol and Drug Abuse Patient Records regulations: The Federal rules restrict any use of the information to criminally investigate or prosecute any alcohol or drug abuse patient.TrihealthIn the event this information is protected by the Federal Confidentiality of Alcohol and Drug Abuse Patient Records regulations: The Federal rules restrict any use of the information to criminally investigate or prosecute any alcohol or drug abuse patient.TrihealthIn the event this information is protected by the Federal Confidentiality of Alcohol and Drug Abuse Patient Records regulations: The Federal rules restrict any use of the information to criminally investigate or prosecute any alcohol or drug abuse patient.TrihealthIn the event this information is protected by the Federal Confidentiality of Alcohol and Drug Abuse Patient Records regulations: The Federal rules restrict any use of the information to criminally investigate or prosecute any alcohol or drug abuse patient.TrihealthIn the event this information is protected by the Federal Confidentiality of Alcohol and Drug Abuse Patient Records regulations: The Federal rules restrict any use of the information to criminally investigate or prosecute any alcohol or drug abuse patient.TrihealthIn the event this information is protected by the Federal Confidentiality of Alcohol and Drug Abuse Patient Records regulations: The Federal rules restrict any use of the information to criminally investigate or prosecute any alcohol or drug abuse patient.TrihealthIn the event this information is protected by the Federal Confidentiality of Alcohol and Drug Abuse Patient Records regulations: The Federal rules restrict any use of the information to criminally investigate or prosecute any alcohol or drug abuse patient.TrihealthIn the event this information is protected by the Federal Confidentiality of Alcohol and Drug Abuse Patient Records regulations: The Federal rules restrict any use of the information to criminally investigate or prosecute any alcohol or drug abuse patient.TrihealthIn the event this information is protected by the Federal Confidentiality of Alcohol and Drug Abuse Patient Records regulations: The Federal rules restrict any use of the information to criminally investigate or prosecute any alcohol or drug abuse patient.TrihealthIn the event this information is protected by the Federal Confidentiality of Alcohol and Drug Abuse Patient Records regulations: The Federal rules restrict any use of the information to criminally investigate or prosecute any alcohol or drug abuse patient.TrihealthIn the event this information is protected by the Federal Confidentiality of Alcohol and Drug Abuse Patient Records regulations: The Federal rules restrict any use of the information to criminally investigate or prosecute any alcohol or drug abuse patient.TrihealthIn the event this information is protected by the Federal Confidentiality of Alcohol and Drug Abuse Patient Records regulations: The Federal rules restrict any use of the information to criminally investigate or prosecute any alcohol or drug abuse patient.TrihealthIn the event this information is protected by the Federal Confidentiality of Alcohol and Drug Abuse Patient Records regulations: The Federal rules restrict any use of the information to criminally investigate or prosecute any alcohol or drug abuse patient.TrihealthIn the event this information is protected by the Federal Confidentiality of Alcohol and Drug Abuse Patient Records regulations: The Federal rules restrict any use of the information to criminally investigate or prosecute any alcohol or drug abuse patient.TrihealthIn the event this information is protected by the Federal Confidentiality of Alcohol and Drug Abuse Patient Records regulations: The Federal rules restrict any use of the information to criminally investigate or prosecute any alcohol or drug abuse patient.TrihealthIn the event this information is protected by the Federal Confidentiality of Alcohol and Drug Abuse Patient Records regulations: The Federal rules restrict any use of the information to criminally investigate or prosecute any alcohol or drug abuse patient.TrihealthIn the event this information is protected by the Federal Confidentiality of Alcohol and Drug Abuse Patient Records regulations: The Federal rules restrict any use of the information to criminally investigate or prosecute any alcohol or drug abuse patient.TrihealthIn the event this information is protected by the Federal Confidentiality of Alcohol and Drug Abuse Patient Records regulations: The Federal rules restrict any use of the information to criminally investigate or prosecute any alcohol or drug abuse patient.TrihealthIn the event this information is protected by the Federal Confidentiality of Alcohol and Drug Abuse Patient Records regulations: The Federal rules restrict any use of the information to criminally investigate or prosecute any alcohol or drug abuse patient.TrihealthIn the event this information is protected by the Federal Confidentiality of Alcohol and Drug Abuse Patient Records regulations: The Federal rules restrict any use of the information to criminally investigate or prosecute any alcohol or drug abuse patient.TrihealthIn the event this information is protected by the Federal Confidentiality of Alcohol and Drug Abuse Patient Records regulations: The Federal rules restrict any use of the information to criminally investigate or prosecute any alcohol or drug abuse patient.TrihealthIn the event this information is protected by the Federal Confidentiality of Alcohol and Drug Abuse Patient Records regulations: The Federal rules restrict any use of the information to criminally investigate or prosecute any alcohol or drug abuse patient.TrihealthIn the event this information is protected by the Federal Confidentiality of Alcohol and Drug Abuse Patient Records regulations: The Federal rules restrict any use of the information to criminally investigate or prosecute any alcohol or drug abuse patient.TrihealthIn the event this information is protected by the Federal Confidentiality of Alcohol and Drug Abuse Patient Records regulations: The Federal rules restrict any use of the information to criminally investigate or prosecute any alcohol or drug abuse patient.TrihealthIn the event this information is protected by the Federal Confidentiality of Alcohol and Drug Abuse Patient Records regulations: The Federal rules restrict any use of the information to criminally investigate or prosecute any alcohol or drug abuse patient.TrihealthIn the event this information is protected by the Federal Confidentiality of Alcohol and Drug Abuse Patient Records regulations: The Federal rules restrict any use of the information to criminally investigate or prosecute any alcohol or drug abuse patient.TrihealthIn the event this information is protected by the Federal Confidentiality of Alcohol and Drug Abuse Patient Records regulations: The Federal rules restrict any use of the information to criminally investigate or prosecute any alcohol or drug abuse patient.TrihealthIn the event this information is protected by the Federal Confidentiality of Alcohol and Drug Abuse Patient Records regulations: The Federal rules restrict any use of the information to criminally investigate or prosecute any alcohol or drug abuse patient.TrihealthIn the event this information is protected by the Federal Confidentiality of Alcohol and Drug Abuse Patient Records regulations: The Federal rules restrict any use of the information to criminally investigate or prosecute any alcohol or drug abuse patient.TrihealthIn the event this information is protected by the Federal Confidentiality of Alcohol and Drug Abuse Patient Records regulations: The Federal rules restrict any use of the information to criminally investigate or prosecute any alcohol or drug abuse patient.TrihealthIn the event this information is protected by the Federal Confidentiality of Alcohol and Drug Abuse Patient Records regulations: The Federal rules restrict any use of the information to criminally investigate or prosecute any alcohol or drug abuse patient.[facility] Reason for Visit (unrecogniz ed section and content) Specialty Diagnoses / Procedures Referred By Juan Miguel t Referred To Contact Allergy / ALLERGY Diagnoses Encounter for allergy injection Tezspire injection Procedures OFFICE/OUTPATIENT ESTABLISHED MOD MDM 30-39 MIN RI JORDEN ADULT/PEDS INJECTION Self Mc, Nurse Jorden Arroyo Seco [address] [address] Referral ID Status Reason Start Date Expiration Date Visits Re quested Visits Authorized [id number] Closed 12/01/2022 09/23/2023 1 1 Reason Comments Sore Throat Pain rated 7, x1 wee k, cough Nasal Congestion Pt reported chest pa in, denied SOB Follow Up Hx diarrhea, denied blood, mucus Reason Comments Results Reason Onset Date Comments Refill Request 01/28/2022 Reason Comments Follow Up Reason Comments Spirometry Specialty Diagnoses / Procedures [facility] Referred To Contact [facility] [place] Diagnoses Moderate persistent asthma without complication Procedures NITRIC OXIDE, EXHALED NITRIC OXIDE GAS DETERMINATION Bessie Gregg, LYNNE [address] [facility] [address] [place] [address] [address] Referral ID Status Reason Start Date Expiration Date V isits Requested Visits Authorized [id number] Closed Auto-Generate d Referral 03/30/2022 04/29/2023 1 1 Reason Comments Established Patient asthma Specialty Diagnoses / Procedures [facility] Referred To Contact [facility] [place] Diagnoses Asthma, unspecified asthma severity, unspecified whether complicated, unspecified whether persistent Procedures NITRIC OXIDE, EXHALED NITRIC OXIDE GAS DETERMINATION Sam Betancourt MD [address] [address] [address] Referral ID Status Reason Start Date Expiration Date V isits Requested Visits Authorized [id number] Closed Auto-Generate d Referral 04/11/2022 05/11/2023 1 1 Specialty Diagnoses / Procedures Referred By Contac t Referred To Contact [facility] Diagnoses Asthma, unspecified asthma severity, unspecified whether complicated, unspecified whether persistent Procedures SPIROMETRY - BASELINE AND POST DILATOR BRNCDILAT RSPSE SPMTRY PRE&POST-BRNCDILAT ADMSam Austin MD [address] [address] Respiratory [place] [address] [place] [address] Referral ID Status Reason Start Date Expiration Date V isits Requested Visits Authorized [id number] Closed Auto-Generate d Referral 04/11/2022 05/11/2023 1 1 Reason Comments New Patient Specialty Diagnoses / Procedures Referred By Contac t Referred To Contact Allergy Diagnoses Uncomplicated asthma, unspecified asthma severity, unspecified whether persistent Allergic rhinitis, unspecified seasonality, unspecified trigger Procedures CONSULT TO ALLERGY/IMMUNOLOGY OFFICE/OUTPATIENT NEW HIGH MDM 60-74 MINUTES Dariusz Berry APRN.ELIGIBILITY SUPERVISOR [address] [place] [address] Referral ID Status Reason Start Date Expiration Date Visits Requested Visits Authorized [id number] Pending Review PCP Requested Referral 02/28/2022 02/28/2023 1 1 Reason Comments Refill Request Reason Comments Established Patient 6 week asthma follow up Reason Comments ENROLLMENT FOR TEZSPIRE Reason Onset Date Comments Physical Annual Physical Immunizations 06/16/2022 Flu vaccination Reason Comments Asthma Reason Comments Injections Tezspire injection Reason Comments Asthma Reason Comments Med Change Request Reason Comments tezsprire injection Reason Comments Tezspire Patient Assistance Form Reason Comments Inhaler-Formulary Reason Comments Tezspire PA Reason Onset Date Comments Refill Request 01/03/2023 Reason Comments Established Patient asthma Specialty Diagnoses / Procedures Referred By Contac t Referred To Contact PULMONARY MEDICINE Diagnoses Asthma 3 Month follow up Procedures OFFICE/OUTPATIENT ESTABLISHED MOD MDM 30-39 MIN RI EST ASTHMA Sam Betancourt MD [address] [place] [address] Nkechi Srivastava MD [address] [place] [address] Referral ID Status Reason Start Date Expiration Date Visits Re quested Visits Authorized [id number] Closed 05/04/2023 09/23/2023 1 1 Reason Comments Established Patient Left hip pain x 4 mo nths with last 2 days being severe, denies injury Specialty Diagnoses / Procedures Referred By Contac t Referred To Contact Internal Medicine / INTERNAL MEDICINE Diagnoses Severe persistent asthma, uncomplicated Headache, left hip pain Procedures OFFICE/OUTPATIENT ESTABLISHED MOD MDM 30-39 MIN 4C EST Self Diane Higuera MD [address] [place] [address] Referral ID Status Reason Start Date Expiration Date Visits Re quested Visits Authorized [id number] Closed 04/13/2023 09/23/2023 1 1 Reason Comments Diarrhea nausea x Sunday Specialty Diagnoses / Procedures Referred By Contac t Referred To Contact Internal Medicine / [facility] Diagnoses Diarrhea Nausea diarrhea and nausea Procedures OFFICE/OUTPATIENT ESTABLISHED MOD MDM 30-39 MIN EST SAME DAY Self Jayden Banegas APRN.COOK RELIEF [address] [facility] [place] [id number] Referral ID Status Reason Start Date Expiration Date Visits Re quested Visits Authorized [id number] Closed 05/30/2023 09/23/2023 1 1 Reason Comments Established Patient Follow up bilateral hip pain Specialty Diagnoses / Procedures Referred By Contac t Referred To Contact Internal Medicine / INTERNAL MEDICINE Diagnoses Bilateral hip pain bilateral hip pain Procedures OFFICE/OUTPATIENT ESTABLISHED MOD MDM 30-39 MIN 4C EST Self Dariusz Berry APRN.ELIGIBILITY SUPERVISOR [address] [place] [address] Referral ID Status Reason Start Date Expiration Date Visits Re quested Visits Authorized [id number] Closed 05/25/2023 09/23/2023 1 1 Reason Comments Consult colonoscopy Reason Comments Mammogram Result Call Back Reason Comments Follow Up urgent care x 3 week s nausea, diarrhea then constipation with bright red blood and mucous, always feels like has to go to bathroom Specialty Diagnoses / Procedures Referred By Contac t Referred To Contact Internal Medicine / INTERNAL MEDICINE Diagnoses Follow-up exam urg care follow up Procedures OFFICE/OUTPATIENT ESTABLISHED MOD MDM 30-39 MIN 4C EST Self Diane Higuera MD [address] [place] [address] Referral ID Status Reason Start Date Expiration Date Visits Re quested Visits Authorized [id number] Closed 06/16/2023 09/23/2023 1 1 Reason Comments Post Op Follow Up egd/ colon follow up Care Teams (unrecognized sec tion and content) Wrecking Mechanic Relationship Specialty Start Date End Date Diane Higuera MD [address] [place] [id number] PCP - General Internal Medicine 07/29/18 Wrecking Mechanic Relationship Specialty Start Date End Date Diane Higuera MD [address] [place] [address] PCP - General Internal Medicine 07/29/18 Wrecking Mechanic Relationship Specialty Start Date End Date Diane Higuera MD [address] [place] [address] PCP - General Internal Medicine 07/29/18 Wrecking Mechanic Relationship Specialty Start Date End Date Diane Higuera MD [address] [place] [address] [place] [address] PCP - General Internal Medicine 07/29/18 Wrecking Mechanic Relationship Specialty Start Date End Date Diane Higuera MD [address] [place] [address] [place] [address] PCP - General Internal Medicine 07/29/18 Wrecking Mechanic Relationship Specialty Start Date End Date Diane Higuera MD [address] [place] [address] [place] [address] PCP - General Internal Medicine 07/29/18 Wrecking Mechanic Relationship Specialty Start Date End Date Diane Higuera MD [address] [place] [address], [place] [address] PCP - General Internal Medicine 07/29/18 Wrecking Mechanic Relationship Specialty Start Date End Date Diane Higuera MD [address] [place] [address], [place] [address] PCP - General Internal Medicine 07/29/18 Wrecking Mechanic Relationship Specialty Start Date End Date Diane Higuera MD [address] [place] [address], [place] [address] PCP - General Internal Medicine 07/29/18 Wrecking Mechanic Relationship Specialty Start Date End Date Diane Higuera MD [address] [place] [address], [place] [address] PCP - General Internal Medicine 07/29/18 Wrecking Mechanic Relationship Specialty Start Date End Date Diane Higuera MD [address] [place] [address], [place] [address] PCP - General Internal Medicine 07/29/18 Wrecking Mechanic Relationship Specialty Start Date End Date Diane Higuera MD [address] [place] [address], [place] [address] PCP - General Internal Medicine 07/29/18 Wrecking Mechanic Relationship Specialty Start Date End Date Diane Higuera MD [address] [place] [address], [place] [address] PCP - General Internal Medicine 07/29/18 Wrecking Mechanic Relationship Specialty Start Date End Date Diane Higuera MD [address] [place] [address], [place] [address] PCP - General Internal Medicine 07/29/18 Wrecking Mechanic Relationship Specialty Start Date End Date Diane Higuera MD [address] [place] [address] [place] [address] PCP - General Internal Medicine 07/29/18 Wrecking Mechanic Relationship Specialty Start Date End Date Diane Higuera MD [address] [place] [address], [place] [address] PCP - General Internal Medicine 07/29/18 Wrecking Mechanic Relationship Specialty Start Date End Date Diane Higuera MD [address] [place] [address] PCP - General Internal Medicine 07/29/18 Wrecking Mechanic Relationship Specialty Start Date End Date Diane Higuera MD [address] [place] [address] PCP - General Internal Medicine 07/29/18 Wrecking Mechanic Relationship Specialty Start Date End Date Diane Higuera MD [address] [place] [address] PCP - General Internal Medicine 07/29/18 Wrecking Mechanic Relationship Specialty Start Date End Date Diane Higuera MD [address] [place] [address] PCP - General Internal Medicine 07/29/18 Wrecking Mechanic Relationship Specialty Start Date End Date Diane Higuera MD [address] [place] [address] PCP - General Internal Medicine 07/29/18 Wrecking Mechanic Relationship Specialty Start Date End Date Diane Higuera MD [address] [place] [address] PCP - General Internal Medicine 07/29/18 Wrecking Mechanic Relationship Specialty Start Date End Date Diane Higuera MD [address] [place] [address] PCP - General Internal Medicine 07/29/18 Wrecking Mechanic Relationship Specialty Start Date End Date Diane Higuera MD [address] [place] [address] PCP - General Internal Medicine 07/29/18 Wrecking Mechanic Relationship Specialty Start Date End Date Diane Higuera MD [address] [place] [address] PCP - General Internal Medicine 07/29/18 Wrecking Mechanic Relationship Specialty Start Date End Date Diane Higuera MD [address] [place] [address] PCP - General Internal Medicine 07/29/18 Wrecking Mechanic Relationship Specialty Start Date End Date Diane Higuera MD [address] [place] [address] PCP - General Internal Medicine 07/29/18 Wrecking Mechanic Relationship Specialty Start Date End Date Diane Higuera MD [address] [place] [address] PCP - General Internal Medicine 07/29/18 Wrecking Mechanic Relationship Specialty Start Date End Date Diane Higuera MD [address] [place] [address] PCP - General Internal Medicine 07/29/18 Wrecking Mechanic Relationship Specialty Start Date End Date Diane Higuera MD [address] [place] [address] PCP - General Internal Medicine 07/29/18 Wrecking Mechanic Relationship Specialty Start Date End Date Diane Higuera MD [address] [place] [address] PCP - General Internal Medicine 07/29/18 Wrecking Mechanic Relationship Specialty Start Date End Date Diane Higuera MD [address] [place] [address] PCP - General Internal Medicine 07/29/18 Wrecking Mechanic Relationship Specialty Start Date End Date Diane Higuera MD [address] [place] [address] PCP - General Internal Medicine 07/29/18 Wrecking Mechanic Relationship Specialty Start Date End Date Diane Higuera MD [address] [place] [address] PCP - General Internal Medicine 07/29/18 Wrecking Mechanic Relationship Specialty Start Date End Date Diane Higuera MD [address] [place] [address] PCP - General Internal Medicine 07/29/18 Wrecking Mechanic Relationship Specialty Start Date End Date Diane Higuera MD [address] [place] [address] PCP - General Internal Medicine 07/29/18 Wrecking Mechanic Relationship Specialty Start Date End Date Diane Higuera MD [address] [place] [address] PCP - General Internal Medicine 07/29/18 FOR RECORDS PERTAINING TO PATIENTS WHO ARE OR HAVE BEEN ENROLLED IN A CHEMICAL DEPENDENCY/SUBSTANCEABUSE PROGRAM, SOME INFORMATION MAY BE OMITTED. This clinical summary was aggregated from multiple sources. Caution should be exercised in using it in the provision of clinical care. This summary normalizes information from multiple sources, and as a consequence, information in this document may materially change the coding, format and clinical context of patient data. In addition, data may be omitted in some cases. CLINICAL DECISIONS SHOULD BE BASED ON THE PRIMARY CLINICAL RECORDS. [facility]. provides no warranty or guarantee of the accuracy or completeness of information in this document.
[2023-10-02 19:07] LABS: Calprotectin, Stool 5 ug/g (0-120); Fats, Neutral Normal (.); Fats, Total Normal (.)
== END | disposition home or self-care (01) ==
PROVIDERS: PCP Internal Medicine; Referring Provider Internal Medicine Gastroenterology; Visit Provider Internal Medicine Gastroenterology
DX: R19.7 Diarrhea, unspecified (principal); R63.4 Abnormal weight loss
CPT/HCPCS: 36415; 82705; 83993

== ENCOUNTER → 2023-10-31 | Outpatient (CLI) | payer OTHER, SELFPAY ==
--- NOTE | 2023-10-31 17:36 | CT_ITS ---
INDICATION: diarrhea, weight loss COMPARISON: None. IV Contrast dosage and agent: 100 cc Isovue-300 IV. RADIATION DOSAGE (If Supplied By Facility): CTDIvol/DLP = 11.52 / 654.28 mGy / mGycm A radiation dose optimization technique was used for this scan. FINDINGS: Contrast enhanced serial CT axial images through the abdomen and pelvis with coronal and sagittal reformatted series. PANCREAS: No peripancreatic fat stranding. BOWEL/MESENTERY: No dilated bowel loops. No significant free fluid. No free air. GALLBLADDER: Absent gallbladder with surgical clips in the gallbladder fossa. LIVER/STOMACH: No obvious abnormality. APPENDIX: Normal caliber gas containing appendix. UTERUS/ADNEXA: 2 cm left adnexal simple fluid attenuating lesion consistent with dominant follicle. URINARY COLLECTING SYSTEM/ KIDNEYS: No obstructing ureteral calculus. No significant renal parenchymal abnormality. LUNG BASES: Unremarkable. BONES: Unremarkable for age. CT/Abdomen/Pelvis WITH Contrast IMPRESSION: 2 cm left dominant follicle. Otherwise no other acute abdominal abnormality, to include unremarkable CT appearance of the bowel. Electronically Signed: Patrick Horner MD at 6:01 EST ,
== END | disposition home or self-care (01) ==
LOC: CT 17:35
PROVIDERS: PCP Internal Medicine; Referring Provider Internal Medicine Gastroenterology; Visit Provider Internal Medicine Gastroenterology
DX: R19.7 Diarrhea, unspecified (principal); R63.4 Abnormal weight loss
CPT/HCPCS: 74177; Q9967

== ENCOUNTER 2025-03-06 06:55 | Day surgery (SDC) | payer OTHER, SELFPAY ==
--- NOTE | 2025-02-27 07:33 | EKG12_ITS ---
Test Reason : PREOP Blood Pressure : */* mmHG Vent. Rate : 57 BPM Atrial Rate : 57 BPM P-R Int : 170 ms QRS Dur : 80 ms QT Int : 408 ms P-R-T Axes : 11 28 34 degrees QTcB Int : 397 ms Sinus bradycardia Otherwise normal ECG Confirmed by ELLIS DEAN, KENNETH ([id number]), associate editor FORTINO CROWLEY ([id number]) on 03/02/2025 6:49:01 AM Referred By: Hallie Chacko Confirmed By: KENNETH CORRAL MD
[2025-02-27 08:25] LABS: Hematocrit 35.4 % (37-47); Mean Corp Hgb Conc 33.9 g/dL (32-36); Mean Corpuscular Hgb 31.3 pg (27.0-32.0); Mean Corpuscular Volume 92.4 fL (81-99); Mean Platelet Vol. 11.1 fl (6.2-12.0); Platelet Count 207 K/mm3 (150-450); RBC Distribution Width CV 12.4 % (11.6-14.6); RBC Distribution Width SD 42.2 fl (35.1-43.9); Red Blood Count 3.83 M/mm3 (4.2-5.4); White Blood Count 4.4 K/mm3 (4.4-11.0)
--- NOTE | 2025-02-27 08:26 | PAT.ANESEVAL ---
Pre-Assessment Diagnosis/Proposed Procedure Planned Operative Procedure(s): HYSTERECTOMY TLH BSO,CYSTO Anesthesia History Anesthesia History - machine i engraver: Anesthesia History - machine i engraver Hx Hospitalization No 02/23/25 14:19 Any Problems With Anesthesia Yes: N,V 02/23/25 14:19 Cholinesterase deficiency No 02/23/25 14:19 You/Your Family Experience No 02/23/25 14:19 fever (hyperthermia) with Relationship Recent Exposure to Contagious Disease Does patient have nerve No 02/23/25 14:19 stimulator Patient instructed to have device shut off --Does patient have Pacemaker or ICD? When Was Last Pacemaker Check QUESTION #4 FULL TEXT: You/Your Family Experience fever (hyperthermia) with Anesthesia Last Oral Intake Last Oral intake: Last Oral Intake NPO since Meds taken in AM with sips of water? Meds patient instructed to take am of surgery PONV PONV - machine i engraver: PONV - machine i engraver Female Yes 02/23/25 14:19 HX of Motion Sickness Yes 02/23/25 14:19 HX of N/V After Surgery Yes 02/23/25 14:19 Non-Smoker Yes 02/23/25 14:19 Duration of Surgery greater Yes 02/23/25 14:19 than 60 minutes Number of Risk Factors 5 02/23/25 14:19 PONV Score Severe Risk 02/23/25 14:19 Respiratory Assessment Respiratory Assessment - machine i engraver: Respiratory Tract Infection Hx - machine i engraver Hx Respiratory Tract Infection No 02/23/25 14:19 STOP Sleep Apnea STOP Sleep Apnea - machine i engraver: STOP Sleep Apnea - machine i engraver Hx Hypertension No 02/23/25 14:19 Hx Sleep Apnea No 02/23/25 14:19 CPAP BIPAP Do you snore loudly (louder No 02/23/25 14:19 than talking or can be heard Do you often feel tired/ No 02/23/25 14:19 fatigued/ sleepy during daytime? Has anyone observed you stop No 02/23/25 14:19 breathing during sleep? STOP Results Negative 02/23/25 14:19 QUESTION #5 FULL TEXT : Do you snore loudly (louder than talking or can be heard through closed doors)? Tobacco Use History Tobacco Use History - machine i engraver: Tobacco Use History - machine i engraver Tobacco Use Smoking Status Never smoker 02/23/25 14:19 Hx Tobacco Use No 02/23/25 14:19 Years Smoking Packs Smoked per Day Smoking Cessation Date was within the last 15 years Hx Smoking Cessation Date Hx Smoking Cessation Counseling Hematologic Medial History Hematologic Hx - machine i engraver: Hematologic Medical Hx - documentation liaison Hx of Blood Transfusion No 02/23/25 14:19 Hx of Transfusion in last 3 No 02/23/25 14:19 Months Date of Last Transfusion (if within last 3 months) Ever experience any problems No 02/23/25 14:19 with transfusion(s)? Specify any problems Hx of Preganancy in last 3 No 02/23/25 14:19 Months Nurse Filling Out Transfusion DSCHRIBER 02/23/25 14:19 & Questions: Date: 02/23/25 02/23/25 14:19 Time: 14:21 02/23/25 14:19 Patient unable to answer at this time (ie. confused, unrespo /Reproduction History /Reproductive History - machine i engraver: /Reproductive Hx- machine i engraver Hx Now No 02/23/25 14:19 Gestational Age (in weeks): EDC: Hx Hx Para Hx Section SAB No 02/23/25 14:19 PFS Medical History (Updated 02/23/25 @ 14:27 by Shea Mays) Wears glasses Back pain History of hiatal hernia History of IBS Asthma Leg cramps Non-smoker History of echocardiogram History of stress test Cardiology follow-up encounter Home Medications ?Medication ?Instructions ?Recorded ?Last Taken ?Type Lactobacillus acidophilus 250 60 mmu cells PO DAILY 02/23/25 Unknown History million cell capsule (Probiotic Acidophilus) albuterol sulfate 2.5 mg/3 mL 2.5 mg inhalation Q4H PRN 02/23/25 Unknown History (0.083 %) solution for nebulization shortness of breath or wheezing albuterol sulfate 90 mcg/actuation 2 inh inhalation Q8H PRN shortness 02/23/25 Unknown History aerosol inhaler (Ventolin HFA) of breath or wheezing azelastine 137 mcg (0.1 %) nasal 2 spray intranasal BID 02/23/25 Unknown History spray cetirizine 10 mg capsule (Zyrtec) 10 mg PO DAILY PRN allergy symptoms 02/23/25 Unknown History fexofenadine 180 mg tablet 180 mg PO DAILY 02/23/25 Unknown History (Allergy Relief (fexofenadine)) fluticasone propionate 230 2 inh inhalation BID 02/23/25 Unknown History mcg-salmeterol 21 mcg/actuation HFA inhaler (Advair HFA) fluticasone propionate 50 2 spray intranasal DAILY 02/23/25 Unknown History mcg/actuation nasal spray,suspension montelukast 10 mg tablet 10 mg PO QHS 02/23/25 Unknown History ondansetron HCl 4 mg tablet 4 mg PO Q8H PRN nausea and vomiting 02/23/25 Unknown History prednisone 50 mg tablet 10 mg PO DAILY PRN ASTHMA 02/23/25 Unknown History Allergy/AdvReac Type Severity Reaction Status Date / Time clindamycin Allergy Intermediate Rash Verified 02/23/25 14:13 sulfamethoxazole (From Allergy Intermediate Rash Verified 02/23/25 14:13 Septra) trimethoprim (From Septra) Allergy NEEDS Verified 08/02/21 06:54 FOLLOW-UP Surgical History (Updated 02/23/25 @ 14:27 by Shea Mays) History of hip surgery Hx of right cataract extraction Hx of left cataract extraction History of esophagogastroduodenoscopy (EGD) History of exploratory laparotomy Hx laparoscopic cholecystectomy Social History Smoking Status: Never smoker Audit: Pertinent Findings Pertinent Findings Stress test pertinent findings: 05/13/2021. Negative. 10.1 METS. Echo (EF%) pertinent findings: 05/13/2021. EF 60 to 65%. Pulmonary artery pressure 25. Consult pertinent findings: Cardiology. 04/22/2021. Unspecified chest pain and shortness of breath. Workup with stress test and echo negative. Recommendation Anesthesia Recommendation Anesthesia recommendation: OPTIMIZED for anesthesia
[2025-02-27 09:22] LABS: Magnesium 2.1 mg/dL (1.5-2.2)
[2025-02-27 09:25] LABS: Anion Gap 9 (5-15); BUN 11 mg/dL (4-19); BUN/Creat Ratio 14.7 RATIO (10-20); Calcium,Total 9.2 mg/dL (7.6-11.0); Carbon Dioxide 27.2 mmol/L (21.0-32.0); Chloride 105 mmol/L (98-108); Creatinine, Serum 0.77 mg/dL (0.70-1.20); EST Glomerular Filtration Rate 100 (>60); Glucose 92 mg/dL (70-99); Potassium 3.8 mmol/L (3.3-5.1); Sodium Level 141 mmol/L (133-145)
--- NOTE | 2025-03-02 08:35 | PCM.HP.BLA ---
History and Physical Date of Admission: 03/06/25 Expand All Collapse All Pre-Op History and Physical HPI: The patient is a 39 year old female presenting for pre-operative visit. She is scheduled for TLH, bilateral salpingectomy, cysto, for pelvic pain, AUB, adenomyosis, fibroid uterus, endometrial polyp. on 03/06/25. Procedure discussed along with risks, benefits and complications. Other alternatives discussed for management. Consent form signed? Yes. PAST MEDICAL HISTORY PAST MEDICAL HISTORY Diagnosis Date ? Acetabular labrum tear, left, initial encounter 09/14/2023 ? Acetabular labrum tear, unspecified laterality, subsequent encounter 09/14/2023 ? Asthma (HCC) ? Constipation ? Diarrhea ? Dyspnea on exertion ? History of echocardiogram 05/13/2021 EF 60-65% RV systolic pressure 25mmHg R atrial pressure 3mmHg ? History of stress test 05/13/2021 no ischemic electrocardiogrpahic changes noted pt developed chest pressure ehich resolved in recovery phase average exercise capacity for age baseline htn with a normal BP response to exercise ? Tear of right acetabular labrum 12/14/2023 PAST SURGICAL HISTORY PAST SURGICAL HISTORY Procedure Laterality Date ? ABDOMINAL SURGERY HX ? APPENDECTOMY ? CHOLECYSTECTOMY 09/24/2002 Cholecystectomy ? COLONOSCOPY 07/23/2023 ? EGD 07/23/2023 ? LAPS ABD PRTM&OMENTUM DX W/WO SPEC BR/WA SPX 11/22/2008 Laparoscopy and D&C ? OPEN HIP LABRAL REPAIR (COMP 95070) Left 12/13/2023 ? OPEN HIP LABRAL REPAIR (COMP 40737) Right 11/01/2023 CURRENT MEDICATIONS Current Outpatient Medications Medication Sig Dispense Refill ? tezepelumab-ekko (TEZSPIRE) 210 mg/1.91 mL (110 mg/mL) pen injector Inject 210 mg subcutaneously every 4 weeks. 1.91 mL 11 ? albuterol (PROVENTIL) 2.5 mg /3 mL (0.083 %) nebulizer solution Use 3 mL via nebulizer every 4 hours as needed for wheezing/shortness of breath. 360 mL 2 ? albuterol HFA (PROVENTIL HFA, VENTOLIN HFA) 90 mcg/actuation inhaler Inhale 2 Puffs as instructed every 4 hours as needed for wheezing/shortness of breath. 1 Each 5 ? biotin 5 mg tab Take 5 mg by mouth once daily. ? B.animalis,bifid,infantis,long (PROBIOTIC 4X ORAL) Take by mouth. ? fluticasone-salmeterol HFA (ADVAIR HFA) 230-21 mcg/actuation inhaler Inhale 2 Puffs as instructed two times a day. 36 g 3 ? fluticasone (FLONASE) 50 mcg/actuation nasal spray Use 2 Sprays in each nostril once daily. 3 Each 3 ? montelukast (SINGULAIR) 10 mg tablet TAKE 1 TABLET BY MOUTH DAILY AT BEDTIME 90 tablet 3 ? azelastine 0.1% nasal spray Use 2 Sprays in each nostril two times a day as needed. 90 mL 2 ? ondansetron orally disintegrating (ZOFRAN ODT) 4 mg disintegrating tablet Take 1 tablet by mouth every 8 hours as needed for nausea/vomiting. 9 tablet 0 ? PREDNISONE ORAL Take by mouth as needed. Burst ? fexofenadine (JOSE) 180 mg tablet Take 180 mg by mouth once daily as needed. ? cetirizine (ZYRTEC) 10 mg tablet Take 10 mg by mouth once daily. ? methocarbamol (ROBAXIN) 500 mg tablet Take 1-2 tablets at bedtime as needed for pain or muscle spasms 20 tablet 0 No current facility-administered medications for this visit. ALLERGIES: Clindamycin and Septra [Sulfamethoxazole-Trimethoprim] PERSONAL HISTORY: SOCIAL HISTORY Social History Tobacco Use ? Smoking status: Never Passive exposure: Never ? Smokeless tobacco: Never Vaping Use ? Vaping status: Never Used Substance Use Topics ? Alcohol use: Not Currently ? Drug use: Not Currently Types: Marijuana FAMILY HISTORY: FAMILY HISTORY FAMILY HISTORY Problem Relation Age of Onset ? other (cerical cancer) Mother ? Asthma Sister ? Heart Maternal Grandmother REVIEW OF SYMPTOMS: negative except as noted above PHYSICAL EXAMINATION: VITALS: Blood pressure 116/72, pulse 65, resp. rate 16, height 163.8 cm (5' 4.5), weight 88 kg (194 lb), last menstrual period 02/19/2025, SpO2 100%. GENERAL: The patient is well nourished, well hydrated in no acute distress. , The patient is oriented to time, place, and person. NECK: full range of motion LUNGS: Clear to auscultation bilaterally. no wheezes, rhonchi or rales HEART: Regular rate and rhythm, Normal heart sounds, and No murmurs or gallops IMPRESSION: 39 yo with AUB, adneomyosis, pelvic pain , fibroid uterus, endometrial polyp PLAN: TLH, bilateral salpingectomy, Cysto Pt has been counseled on risks/benefits and alternatives of surgery including but not limited to anesthesia, bleeding, infection, injury to pelvic structures including bowel, bladder, ureters and vessels. Pt wishes to proceed with surgery at this time. Pre and post op instructions reviewed- declines narcotics after surgery I have reviewed and updated past medical and surgical history, medications and allergies Hallie Flores MD Office Visit on 02/20/2025 Revision History Note viewed by patient
[2025-03-06] VITALS (20 sets, daily range): BP systolic 98–118; BP diastolic 62–74; PULSE 55–70; RESP 16–18; TEMP 36.6–37.3; O2SAT 96–100; BMI 33.0
--- OUTSIDE RECORDS SUMMARY | 2025-03-06 07:14 | XMS RPT_ITS | CCD ---
Author Organization [facility] Care Team Providers Care Bacteriology Teacher Name Role Phone Diane Bazzi MD Primary Care Provider DIANE BAZZI Primary Care Unavailable DEBBIE MUSTAFA Referring Unavailable Diane Bazzi MD Primary Care Provider JLUIS DIANE D Primary Care Unavailable BETSEY PARTIDA Attending Unavailable BETSEY PARTIDA Admitting Unavailable Diane Bazzi MD Primary Care Provider Berry TOWER ERECTOR HELPER.SIDE PULLER, Dariusz Unavailable Storm TOWER ERECTOR HELPER.WAREHOUSE REPRESENTATIVE, Alyssa Unavailable Storm TOWER ERECTOR HELPER.WAREHOUSE REPRESENTATIVE, Alyssa Unavailable Storm TOWER ERECTOR HELPER.WAREHOUSE REPRESENTATIVE, Alyssa Unavailable Storm TOWER ERECTOR HELPER.WAREHOUSE REPRESENTATIVE, Alyssa Unavailable Berry TOWER ERECTOR HELPER.SIDE PULLER, Dariusz Unavailable BERRY, DARIUSZ Referring Unavailable TALAMPAS, DIANE D Primary Care Unavailable SAM HANKINS Attending Unavailable TALAMPAS, DIANE D Primary Care Unavailable PLOTTS, LELIA Attending Unavailable TALAMPAS, DIANE D Primary Care Unavailable DEBBIE MUSTAFA Referring Unavailable TALAMPAS, DIANE D Primary Care Unavailable PLOTTS, LELIA Referring Unavailable TALAMPAS, DIANE D Primary Care Unavailable DEBBIE MUSTAFA Attending Unavailable TALAMPAS, DIANE D Primary Care Unavailable Selma'JAJA GARCIA Attending Unavailable BERRY, DARIUSZ Referring Unavailable TALAMPAS, DIANE D Primary Care Unavailable BERRY, DARIUSZ Referring Unavailable TALAMPAS, DIANE D Primary Care Unavailable Selma'JAJA GARCIA Attending Unavailable DEBBIE MUSTAFA Referring Unavailable TALAMPAS, DIANE D Primary Care Unavailable O'JOSEJAJA Attending Unavailable BANJAC, DEBBIE L Referring Unavailable TALAMPAS, DIANE D Primary Care Unavailable O'JOSEJAJA Attending Unavailable BANJAC, DEBBIE L Referring Unavailable TALAMPAS, DIANE D Primary Care Unavailable O'JOSEJAJA Attending Unavailable PIAJAC, DEBBIE L Referring Unavailable TALAMPAS, DIANE D Primary Care Unavailable O'JOSEJAJA Attending Unavailable BERRY, DARIUSZ Referring Unavailable TALAMPAS, DIANE D Primary Care Unavailable ENRIQUE ALMONTE Attending Unavailable JULIUSC, DEBBIE Cayden Referring Unavailable TALAMPAS, DIANE D Primary Care Unavailable O'JOSEJAJA Attending Unavailable PIAJAC, DEBBIE L Referring Unavailable TALAMPAS, DIANE D Primary Care Unavailable BERRY, DARIUSZ Referring Unavailable TALAMPAS, DIANE D Primary Care Unavailable BERRY, DARIUSZ Referring Unavailable TALAMPAS, DIANE D Primary Care Unavailable TALAMPAS, DIANE D Primary Care Unavailable BERNARD ESTRADA Attending Unavailable SELF Referring Unavailable TALAMPAS, DIANE D Primary Care Unavailable JULIUSCDEBBIE Attending Unavailable SELF Referring Unavailable TALAMPAS, DIANE D Primary Care Unavailable BANJAC, DEBBIE L Referring Unavailable TALAMPAS, DIANE D Primary Care Unavailable PLOTLESIA, LELIA Attending Unavailable TALAMPAS, DIANE D Primary Care Unavailable ARIELA TALLEY Attending Unavailable TALAMPAS, DIANE D Primary Care Unavailable BERNARD ESTRADA Attending Unavailable TALAMPAS, DIANE D Primary Care Unavailable PLOTLESIA, LELIA Attending Unavailable PLOTTS, LELIA Referring Unavailable TALAMPAS, DIANE D Primary Care Unavailable TRUE GAYTAN Attending Unavailable TRUE GAYTAN Referring Unavailable TALAMPAS, DIANE D Primary Care Unavailable PLOTTS, LELIA Referring Unavailable TALAMPAS, DIANE D Primary Care Unavailable BERRY, DARIUSZ Attending Unavailable LEIGH, LELIA Referring Unavailable TALAMPAS, DIANE D Primary Care Unavailable BERRY, DARIUSZ Referring Unavailable TALAMPAS, DIANE D Primary Care Unavailable AL KABA Attending Unavail able TALAMPAS, DIANE D Primary Care Unavailable TALAMPAS, DIANE D Primary Care Unavailable TRUE GAYTAN Referring Unavailable TALAMPAS, DIANE D Primary Care Unavailable TRUE GAYTAN Referring Unavailable TALAMPAS, DIANE D Primary Care Unavailable AL KABA Attending Unavail able TALAMPAS, DIANE D Primary Care Unavailable BERRY, DARIUSZ Referring Unavailable TALAMPAS, DIANE D Primary Care Unavailable BERRY, DARIUSZ Attending Unavailable TALAMPAS, DIANE D Primary Care Unavailable BERRY, DARIUSZ Referring Unavailable TALAMPAS, DIANE D Primary Care Unavailable PLOTTS, LELIA Referring Unavailable TALAMPAS, DIANE D Primary Care Unavailable TALAMPAS, DIANE D Primary Care Unavailable SYDNEY JOSÉ Referring Unavailable TALAMPAS, DIANE D Primary Care Unavailable PLOTTS, LELIA Referring Unavailable TALAMPAS, DIANE D Primary Care Unavailable BERRY, DARIUSZ Referring Unavailable TALAMPAS, DIANE D Primary Care Unavailable JENNIFFER CHIU Attending Unavaila ble BERRY, DARIUSZ Referring Unavailable TALAMPAS, DIANE D Primary Care Unavailable BETSEY PARTIDA Attending Unavailable TALAMPAS, DIANE D Primary Care Unavailable DEBBIE MUSTAFA Referring Unavailable TALAMPAS, DIANE D Primary Care Unavailable TALAMPAS, DIANE D Primary Care Unavailable MOOMAW, OLLIE Referring Unavailable TALAMPAS, DIANE D Primary Care Unavailable Talampas, Diane D Primary Care Unavailable Al Chacko Referring Unavail able Cathy Gonzalez Attending Unavailabl e Al Chacko Referring Unavail able Al Chacko Attending Unavail able Talampas, Diane D Primary Care Unavailable Allergies Allergy Classification Reported Allergen(s) Allergy Type Date of Onset Reaction(s) Facility Lincosamides (antibiotic) (3 sources) Clindamycin Drug Allergy 05-09-20 10 Rash, GI Upset [facility] Sulfamethoxazole / Trimethoprim (3 sources) Sulfamethoxazole / Trimethoprim Drug Allergy 05-09-20 10 Rash, GI Upset [facility] (20 sources) Clindamycin; Translations: [CLINDAMYCIN] Drug Allergy 05-09-20 10 Rash, GI Upset [facility] Work Phone: (4 sources) Penicillins Propensity to adverse reactions 05-09-20 10 Rash [facility] Work Phone: (20 sources) Sulfamethoxazole / Trimethoprim Drug Allergy 05-09-20 10 Rash, GI Upset [facility] Work Phone: (3 sources) Penicillins Propensity to adverse reactions 05-09-20 10 Rash [facility] Work Phone: (20 sources) Sulfamethoxazole / Trimethoprim; Translations: [SULFAMETHOXAZOLE-T RIMETHOPRIM] Drug Allergy 05-09-20 10 Rash, GI Upset [facility] Work Phone: (2 sources) Penicillins Allergy to substance 08-02-20 NEEDS FOLLOW-UP [facility] (2 sources) Sulfamethoxazole Drug Allergy 08-02-20 NEEDS FOLLOW-UP [facility] (2 sources) Trimethoprim Drug Allergy 08-02-20 NEEDS FOLLOW-UP [facility] (1 source) Clindamycin Drug Allergy 02-24-20 [facility] (1 source) Sulfamethoxazole Drug Allergy 02-24-20 [facility] (1 source) Trimethoprim Drug Allergy 08-02-20 [facility] Medications Current Medications Medication Drug Class(es) Dates Sig (Normalized) Sig (Original) acetaminophen 500 mg oral tablet (20 sources) Start: 12-07-2023 End: 12-23-2023 take 1-2 tablets by mouth every six hours as needed for pain and pain, then take 1-2 tablets by mouth every eight hours as needed for pain and pain acetaminophen (ACETAMINOPHEN EXTRA STRENGTH) 500 mg tablet Take 1-2 tablets by mouth every 6 hours as needed for pain for 4 days, THEN 1-2 tablets every 8 hours as needed for pain for up to 6 days. 60 tablet 0 12/13/2023 12/23/2023 Active Start: 11-01-2023 End: 11-10-2023 take 1-2 tablets by mouth every six hours as needed for pain and pain, then take 1-2 tablets by mouth every eight hours as needed for pain and pain acetaminophen (ACETAMINOPHEN EXTRA STRENGTH) 500 mg tablet Take 1-2 tablets by mouth every 6 hours as needed for pain for 4 days, THEN 1-2 tablets every 8 hours as needed for pain for up to 6 days. 60 tablet 0 11/01/2023 11/10/2023 Active End: 12-13-2023 acetaminophen 325 mg cap Moose e by mouth as needed. 12/13/2023 Discontinued Comment on above: Take by mouth. Take by mouth as nee ded. Take 1-2 tablets by mouth every 6 hours as needed for pain for 4 days, THEN 1-2 tablets every 8 hours as needed for pain for up to 6 days. [id number] 200 actuat albuterol 0.09 mg/actuat metered dose inhaler (20 sources) beta2-Adrenergic Agonist Start: 07-04-2022 End: 10-10-2024 albuterol (PROVENTIL) 2.5 mg /3 mL (0.083 %) nebulizer solution Indications: Asthma, unspecified asthma severity, unspecified whether complicated, unspecified whether persistent (HCC) Use 3 mL via nebulizer every 4 hours as needed for wheezing/shortness of breath. 360 mL 2 10/10/2024 Active Start: 12-30-2021 End: 12-30-2021 albuterol 2.5 mg /3 mL (0.08 3 %) 2.5 mg (PROVENTIL) Start: 12-30-2021 End: 02-28-2022 take 2.5 mg by inhalation every four hours as needed albuterol (PROVENTIL) 2.5 mg /3 mL (0.083 %) nebulizer solution Use 3 mL via nebulizer every 4 hours as needed for wheezing/shortness of breath. 36 mL 2 02/28/2022 Active Start: 06-09-2021 End: 01-06-2025 take 2 puff(s) by inhalation every four hours as needed for wheezing albuterol HFA (PROVENTIL HFA, VENTOLIN HFA) 90 mcg/actuation inhaler Inhale 2 Puffs as instructed every 4 hours as needed for wheezing/shortness of breath. 1 Each 5 10/10/2024 Active Comment on above: Inhale 2 Puffs as in structed every 4 hours as needed for wheezing/shortness of breath (and before sexertion / exercise). Use 3 mL via nebuliz er every 4 hours as needed for wheezing/shortness of breath. azelastine hydrochloride 0.137 mg/actuat metered dose nasal spray (20 sources) Histamine-1 Receptor Antagonist Start: 01-02-20 End: 12-20-19 24 take 2 spray(s) nasal route twice daily as needed azelastine 0.1% nasal spray Use 2 Sprays in each nostril two times a day as needed. 90 mL 2 12/20/2023 Active Start: 04-19-2022 take 2 spray(s) nasa l route twice daily as needed azelastine (ASTELIN, ASTEPRO) 0.1% nasal spray Use 2 Sprays in each nostril twice daily as needed. 30 mL 11 04/19/2022 Active Comment on above: Use 2 Sprays in each nostril twice daily as needed. Use 2 Sprays in each nostril two times a day as needed. B.animalis,bifid,infa ntis,long (PROBIOTIC 4X ORAL) (20 sources) B.animalis,bifid ,inf antis,long (PROBIOTIC 4X ORAL) Take by mouth. Active biotin 5 mg oral tablet (20 sources) take 1 tablet by mouth once daily biotin 5 mg tab Take 5 mg by mouth once daily. Active cetirizine hydrochloride 10 mg oral tablet (20 sources) Histamine-1 Receptor Antagonist take 1 tablet by mouth once daily cetirizine (ZYRTEC) 10 mg tablet Take 10 mg by mouth once daily. Active Comment on above: Take 10 mg by mouth once daily. fexofenadine hydrochloride 180 mg oral tablet (20 sources) Histamine-1 Receptor Antagonist take 1 tablet by mouth once daily as needed fexofenadine (GM) 180 mg tablet Take 180 mg by mouth once daily as needed. Active Comment on above: Take 180 mg by mouth once daily. Take 180 mg by mouth as needed. Take 180 mg by mouth once daily as needed. fluticasone propionate 0.05 mg/actuat metered dose nasal spray (20 sources) Corticosteroid Start: 05-15-20 End: 06-11-20 24 take 2 spray(s) nasal route once daily fluticasone (FLONASE) 50 mcg/actuation nasal spray Use 2 Sprays in each nostril once daily. 3 Each 3 06/11/2024 Active Start: 04-25-2022 End: 05-15-2023 take 1 spray(s) nasal route once daily fluticasone (FLONASE) 50 mcg/actuation nasal spray Indications: Allergic rhinitis, unspecified seasonality, unspecified trigger , Post-nasal drip SPRAY 1 SPRAY INTO EACH NOSTRIL EVERY DAY 48 mL 1 08/18/2022 05/15/2023 Discontinued Start: 03-30-2022 End: 04-25-2022 take 1 spray(s) nasal route once daily fluticasone (FLONASE) 50 mcg/actuation nasal spray Indications: Allergic rhinitis, unspecified seasonality, unspecified trigger , Post-nasal drip Use 1 [place] in each nostril once daily. 1 Each 3 03/30/2022 04/25/2022 Discontinued Comment on above: Use 1 [place] [facility] in each nostril once daily. SPRAY 1 SPRAY INTO E ACH NOSTRIL EVERY DAY Use 2 Sprays in each nostril once daily. 120 actuat fluticasone propionate 0.23 mg/actuat / salmeterol 0.021 mg/actuat metered dose inhaler (20 sources) Corticosteroid, beta2-Adrenergic Agonist Start: End: take 2 puff(s) by inhalation twice daily fluticasone-salmetero l HFA (ADVAIR) 230-21 mcg/actuation inhaler Inhale 2 Puffs as instructed two times a day. 12 g 2 05/06/2024 01/02/2025 Discontinued (Discontinued by Patient) Start: 09-03-2023 End: 07-08-2025 take 2 puff(s) by inhalation twice daily fluticasone-salmeterol HFA (ADVAIR HFA) 230-21 mcg/actuation inhaler Inhale 2 Puffs as instructed two times a day. 36 g 3 07/08/2024 07/08/2025 Active Start: 08-20-2023 End: 09-03-2023 fluticasone-salmeterol (ADVA IR DISKUS) 500-50 mcg/dose dsdv USE 1 INHALATION BY MOUTH TWICE DAILY - RINSE MOUTH OUT AFTER USE 180 Each 3 08/20/2023 09/03/2023 Discontinued Start: 08-20-2023 fluticasone-sa lmeterol (ADVAIR DISKUS) 500-50 mcg/dose dsdv USE 1 INHALATION BY MOUTH TWICE DAILY - RINSE MOUTH OUT AFTER USE 180 Each 3 08/20/2023 Active Start: 01-03-2023 End: 08-20-2023 fluticasone-salmeterol (ADVA IR DISKUS) 500-50 mcg/dose dsdv One inhalation twice a day. Rinse mouth out after use. 3 Each 2 01/03/2023 08/20/2023 Discontinued Start: 01-03-2023 fluticasone-sa lmeterol (ADVAIR DISKUS) 500-50 mcg/dose dsdv One inhalation twice a day. Rinse mouth out after use. 3 Each 2 01/03/2023 Active Start: 01-01-2023 End: 01-03-2023 fluticasone-salmeterol (ADVA IR DISKUS) 500-50 mcg/dose dsdv One inhalation twice a day. Rinse mouth out after use. 3 Each 3 01/01/2023 01/03/2023 Discontinued Start: 09-06-2022 take 1 dose by mouth twice daily fluticasone-salmeterol (ADVAIR DISKUS) 500-50 mcg/dose dsdv One inhalation twice a day. Rinse mouth out after use. 1 Each 11 09/06/2022 Active Start: 04-19-2022 take 2 puff(s) by mo [facility] twice daily fluticasone-salmeterol HFA (ADVAIR HFA) 230-21 mcg/actuation inhaler Inhale 2 Puffs as instructed twice daily. Use with spacer. Rinse mouth out after use. 1 Inhaler 11 04/19/2022 Active Comment on above: Inhale 2 Puffs as in structed twice daily. Use with spacer. Rinse mouth out after use. One inhalation twice a day. Rinse mouth out after use. USE 1 INHALATION BY MOUTH TWICE DAILY - RINSE MOUTH OUT AFTER USE Inhale 2 Puffs as in structed two times a day. Ibuprofen (4 sources) Nonsteroidal Anti-inflammatory Drug End: 02-28-2022 ibuprofen (MOTRIN ORAL) Take by mouth. 0 02/28/2022 Discontinued ibuprofen (MOTRI N ORAL) Take by mouth. 0 Active Comment on above: Take by mouth. iv contrast (will be provided with radiology test) (1 source) Start: End: inject 1 dose intravenously once iv contrast (will be provided with radiology test) Indications: Disorder of central nervous system, unspecified , Vasculopathy MRI Brain Inject, intravenously, once for 1 dose.No IV access, insert saline lock prior to beginning of sedation, infusion, injection of imaging exam.Discontinue saline lock post exam. If Pt. has a central line or IVAD, may access for administration according to line specific nursing protocol.Once exam is complete flush line and de-access according to line specific nursing protocol in the MR contrast administration guidelines link 1 Each 0 02/28/2024 02/28/2024 Active methocarbamol 500 mg oral tablet (20 sources) Muscle Relaxant Start: 024 methocarbamol (ROBAXIN) 500 mg tablet Take 1-2 tablets at bedtime as needed for pain or muscle spasms 20 tablet 09/19/2024 Active Start: 12-07-2023 End: 01-25-2024 take 500-1000 mg by mouth every eight hours as needed methocarbamol (ROBAXIN) 500 mg tablet Take 1-2 tablets by mouth three times a day as needed (for muscle spasms or pain). 40 tablet 0 12/13/2023 01/25/2024 Discontinued (Course of therapy completed) Start: 11-01-2023 End: 12-04-2023 take 500-1000 mg by mouth every eight hours as needed methocarbamol (ROBAXIN) 500 mg tablet Take 1-2 tablets by mouth three times a day as needed (for muscle spasms or pain). 40 tablet 0 11/01/2023 12/04/2023 Discontinued (Course of therapy completed) Comment on above: Take 1-2 tablets by mouth three times a day as needed (for muscle spasms or pain). montelukast 10 mg oral tablet (20 sources) Leukotriene Receptor Antagonist Start: 02-29-20 End: 04-04-20 take 1 tablet by mouth once daily at bedtime montelukast (SINGULAIR) 10 mg tablet Indications: Severe persistent asthma without complication (HCC) TAKE 1 TABLET BY MOUTH DAILY AT BEDTIME 90 tablet 3 04/04/2024 Active Comment on above: Take 1 tablet by ximena th daily at bedtime. naproxen 500 mg oral tablet (12 sources) Nonsteroidal Anti-inflammatory Drug Start: 12-07-19 End: 01-03-20 24 take 1 tablet by mouth twice daily at mealtime naproxen (NAPROSYN) 500 mg tablet Take 1 tablet by mouth two times a day with meals for 21 days. 42 tablet 0 12/13/2023 01/03/2024 Active Start: 11-01-2023 End: 11-22-2023 take 1 tablet by mouth twice daily at mealtime naproxen (NAPROSYN) 500 mg tablet Take 1 tablet by mouth two times a day with meals for 21 days. 42 tablet 0 11/01/2023 11/22/2023 Comment on above: Take 1 tablet by ximena th two times a day with meals for 21 days. ondansetron 4 mg disintegrating oral tablet (20 sources) Serotonin-3 Receptor Antagonist Start: 12-13-19 take 1 tablet by mouth every eight hours as needed ondansetron orally disintegrating (ZOFRAN ODT) 4 mg disintegrating tablet Take 1 tablet by mouth every 8 hours as needed for nausea/vomiting. 9 tablet 12/13/2023 Active Start: 10-22-2023 End: 12-04-2023 take 1 tablet by mouth every eight hours as needed ondansetron orally disintegrating (ZOFRAN ODT) 4 mg disintegrating tablet Take 1 tablet by mouth every 8 hours as needed for nausea/vomiting. 21 tablet 10/22/2023 12/04/2023 Discontinued (Course of therapy completed) Start: 08-06-2023 take 1 tablet by ximena th every eight hours as needed ondansetron orally disintegrating (ZOFRAN ODT) 4 mg disintegrating tablet Take 1 tablet by mouth every 8 hours as needed for nausea/vomiting. 21 tablet 0 08/06/2023 Active Start: 06-16-2023 take 1 tablet by ximena th every eight hours as needed ondansetron orally disintegrating (ZOFRAN ODT) 4 mg disintegrating tablet Take 1 tablet by mouth every 8 hours as needed for nausea/vomiting. 21 tablet 0 06/16/2023 Active Comment on above: Take 1 tablet by ximena th every 8 hours as needed for nausea/vomiting. oxyCODONE hydrochloride 5 mg oral tablet (4 sources) Opioid Agonist Start: 12-13-2023 End: 12-17-2023 oxyCODONE IR (ROXICODONE) 5 mg immediate release tablet Indications: pain Take 1 tablet every 6 to 8 hours as needed for severe pain 14 tablet 0 12/13/2023 12/17/2023 Active Start: 12-07-2023 End: 12-11-2023 oxyCODONE IR (ROXICODONE) 5 mg immediate release tablet Indications: pain Take 1 tablet every 6 to 8 hours as needed for severe pain 12 tablet 0 12/07/2023 12/11/2023 Active Start: 11-01-2023 End: 11-05-2023 oxyCODONE IR (ROXICODONE) 5 mg immediate release tablet Indications: pain Take 1 tablet every 6 to 8 hours as needed for severe pain 14 tablet 0 11/01/2023 11/05/2023 Active Comment on above: Take 1 tablet every 6 to 8 hours as needed for severe pain polymyxin b [id number] unt/ml / trimethoprim 1 mg/ml ophthalmic solution (4 sources) Dihydrofolate Reductase Inhibitor Antibacterial, Polymyxin-class Antibacterial Start: 12-31-19 End: 02-29-20 take 2 drop(s) into the eye(s) three times daily trimethoprim-polymyx in (POLYTRIM) 10,000 unit- 1 mg/mL ophthalmic solution Use 2 Drops in both eyes three times daily. 10 mL 0 12/30/2021 02/28/2022 Discontinued Comment on above: Use 2 Drops in both eyes three times daily. predniSONE 50 mg oral tablet (20 sources) Start: 09-29-19 End: 10-04-19 take 1 tablet by mouth once daily predniSONE (DELTASONE) 50 mg Indications: Acute cough Take 1 tablet by mouth once daily for 5 days. 5 tablet 09/29/2024 10/04/2024 Active Start: 08-28-2023 End: 09-09-2023 predniSONE (DELTASONE) 10 mg tablet Take 4 tabs daily x 3 days, then 3 tabs x 3 days, 2 tabs x 3 days, then 1 tab x3 days with food. As directed 30 tablet 0 08/28/2023 09/09/2023 Active Start: 04-13-2023 End: 04-25-2023 predniSONE (DELTASONE) 10 mg tablet Indications: Back strain, initial encounter Take 4 tabs daily x 3 days, then 3 tabs x 3 days, 2 tabs x 3 days, then 1 tab x3 days with food. As directed 30 tablet 0 04/13/2023 04/25/2023 Start: 07-13-2022 End: 05-25-2023 predniSONE (DELTASONE) 20 mg tablet Take two daily for 5 days. 10 tablet 3 07/13/2022 05/25/2023 Discontinued Start: 03-30-2022 End: 04-04-2022 take 2 tablets by mouth once daily predniSONE (DELTASONE) 20 mg tablet Indications: Moderate persistent asthma with acute exacerbation Take 2 tablets by mouth once daily for 5 days. 10 tablet 0 03/30/2022 04/04/2022 Active Start: 12-30-2021 End: 01-04-2022 take 2 tablets by mouth once daily predniSONE (DELTASONE) 20 mg tablet Take 2 tablets by mouth once daily for 5 days. 10 tablet 0 12/30/2021 01/04/2022 Active PREDNISONE ORAL Take by mouth as needed. Burst Active PREDNISONE ORAL Take by mouth as needed. Burst 0 Active Comment on above: Take 2 tablets by mo ut once daily for 5 days. Take two daily for 5 days. Take 4 tabs daily x 3 days, then 3 tabs x 3 days, 2 tabs x 3 days, then 1 tab x3 days with food. As directed Take by mouth as nee ded. Burst tezepelumab-ekko (TEZSPIRE) 210 mg/1.91 mL (110 mg/mL) pen injector (20 sources) Start: 10-24-2024 tezepelumab-ekko (TEZSPIRE) 210 mg/1.91 mL (110 mg/mL) pen injector Inject 210 mg subcutaneously every 4 weeks. 1.91 mL 11 10/24/2024 Active Completed/Discontinued Medications Medication Drug Class(es) Dates Sig (Normalized) Sig (Original) amoxicillin 50 mg/ml oral suspension (1 source) Penicillin-class Antibacterial Start: 04-19-2022 End: 04-19-2022 amoxicillin 250 mg oral liquid (AMOXIL) Start: 04-19-2022 End: 04-19-2022 amoxicillin 250 mg oral liqu id (AMOXIL) aspirin 81 mg delayed release oral tablet (19 sources) Platelet Aggregation Inhibitor, Nonsteroidal Anti-inflammatory Drug Start: 12-07-2023 End: 01-25-2024 take 1 tablet by mouth once daily at breakfast aspirin, enteric coated (ADULT LOW DOSE ASPIRIN) 81 mg EC tablet Take 1 tablet by mouth daily with breakfast for 21 days. 21 tablet 0 12/13/2023 01/25/2024 Discontinued (Course of therapy completed) Start: 11-01-2023 End: 12-04-2023 take 1 tablet by mouth once daily at breakfast aspirin, enteric coated (ADULT LOW DOSE ASPIRIN) 81 mg EC tablet Take 1 tablet by mouth daily with breakfast for 21 days. 21 tablet 0 11/01/2023 12/04/2023 Discontinued (Course of therapy completed) Comment on above: Take 1 tablet by ximena th daily with breakfast for 21 days. benzonatate 100 mg oral capsule (20 sources) Non-narcotic Antitussive Start: End: take 1 capsule by mouth three times daily as needed for cough benzonatate (TESSALON PERLE) 100 mg capsule Indications: Acute cough Take 1 capsule by mouth three times a day as needed for cough for up to 12 doses. 12 capsule 09/29/2024 01/02/2025 Discontinued (Discontinued by Patient) Start: 12-30-2021 End: 02-28-2022 benzonatate (TESSALON PERLE) 100 mg capsule Take 1-2 capsules tid prn, no more than 6 in 24 hours. 30 capsule 0 12/30/2021 02/28/2022 Discontinued Comment on above: Take 1-2 capsules ti d prn, no more than 6 in 24 hours. Budesonide / formoterol (12 sources) Corticosteroid, beta2-Adrenergic Agonist Start: End: take 2 puff(s) by inhalation twice daily budesonide-formoterol (SYMBICORT) 160-4.5 mcg/actuation inhaler Inhale 2 Puffs as instructed twice daily. 1 Each 5 01/30/2022 04/19/2022 Discontinued Start: 01-30-2022 take 2 puff(s) by in halation twice daily budesonide-formoterol (SYMBICORT) 160-4.5 mcg/actuation inhaler Inhale 2 Puffs as instructed twice daily. 1 Each 5 01/30/2022 Active Start: 08-09-2021 End: 01-28-2022 take 2 puff(s) by inhalation twice daily budesonide-formoterol (SYMBICORT) 160-4.5 mcg/actuation inhaler Inhale 2 Puffs as instructed twice daily. 1 Each 5 08/09/2021 01/28/2022 Discontinued Start: 08-09-2021 take 2 puff(s) by in halation twice daily budesonide-formoterol (SYMBICORT) 160-4.5 mcg/actuation inhaler Inhale 2 Puffs as instructed twice daily. 1 Each 5 08/09/2021 Active Comment on above: Inhale 2 Puffs as in structed twice daily. docusate sodium 100 mg oral capsule (19 sources) Start: 12-07-2023 End: 01-25-2024 take 1 capsule by mouth twice daily docusate sodium (COLACE) 100 mg capsule Indications: constipation Take 1 capsule by mouth two times a day. 60 capsule 0 12/13/2023 01/25/2024 Discontinued (Course of therapy completed) Start: 11-01-2023 End: 12-04-2023 take 1 capsule by mouth twice daily docusate sodium (COLACE) 100 mg capsule Indications: constipation Take 1 capsule by mouth two times a day. 60 capsule 0 11/01/2023 12/04/2023 Discontinued (Course of therapy completed) Comment on above: Take 1 capsule by mo ut two times a day. famotidine 20 mg oral tablet (20 sources) Histamine-2 Receptor Antagonist Start: End: take 1 tablet by mouth once daily at bedtime famotidine (PEPCID) 20 mg tablet Indications: Hoarseness of voice Take 1 tablet by mouth daily at bedtime. 30 tablet 1 08/04/2024 01/02/2025 Discontinued (Discontinued by Patient) indomethacin 75 mg extended release oral capsule (4 sources) Nonsteroidal Anti-inflammatory Drug Start: End: take 1 capsule by mouth twice daily at mealtime indomethacin ER 75 mg CR capsule Take 1 capsule by mouth two times a day with meals for 10 days. 20 capsule 09/19/2024 09/29/2024 iohexol injection (OMNIPAQUE 300) (1 source) Start: End: X (OR/PROCEDURE) PRN, Starting on Sun11/07/24 at 1339, Until Sun11/07/24 at 1339, Intraprocedure ketorolac tromethamine 5 mg/ml ophthalmic solution (18 sources) Nonsteroidal Anti-inflammatory Drug, Cyclooxygenase Inhibitor Start: End: take 1 drop(s) into the eye(s) four times daily keTORolac (ACULAR) 0.5 % ophthalmic solution Use 1 Drop in both eyes four times daily. 06/17/2024 09/15/2024 Discontinued (Course of therapy completed) Start: 04-13-2023 End: 04-18-2023 take 1 tablet by mouth every six hours as needed keTORolac (TORADOL) 10 mg tablet Take 1 tablet by mouth every 6 hours as needed for up to 5 days. 20 tablet 0 04/13/2023 04/18/2023 Start: 04-13-2023 End: 04-13-2023 keTORolac 30 mg injection (T oradol) Comment on above: Take 1 tablet by ximena every 6 hours as needed for up to 5 days. 10 ml lidocaine hydrochloride 10 mg/ml injection (1 source) Antiarrhythmic, Amide Local Anesthetic Start: 11-07-19 End: 11-07-19 SUBCUTANEOUS, X (OR/PROCEDURE) PRN, Starting on Sun11/07/24 at 1338, Until Sun11/07/24 at 1338, Intraprocedure Loperamide (6 sources) Opioid Agonist loperamide HCl (IMODIUM ORAL) Take by mouth. 0 Active Comment on above: Take by mouth. ofloxacin 3 mg/ml ophthalmic solution (16 sources) Quinolone Antimicrobial Start: 06-17-20 End: 09-15-20 take 1 drop(s) into the eye(s) four times daily ofloxacin (OCUFLOX) 0.3 % ophthalmic solution Use 1 Drop in the right eye four times daily. 06/17/2024 09/15/2024 Discontinued (Course of therapy completed) polyethylene glycol 3350 420382 mg / potassium chloride 2970 mg / sodium bicarbonate 6740 mg / sodium chloride 5860 mg / sodium sulfate 74696 mg powder for oral solution (1 source) Osmotic Laxative Start: 06-26-20 End: 10-03-20 23 peg 3350-Electrolytes (GOLYTELY) 236-22.74-6.74 -5.86 gram suspension Indications: Diarrhea, unspecified type , Nausea , Epigastric pain , Rectal bleeding Take 4,000 mL by mouth one time only for 1 dose. Refer to printed prep instructions from your provider. 4000 mL 0 06/26/2023 06/26/2023 Comment on above: Take 4,000 mL by ximena th one time only for 1 dose. Refer to printed prep instructions from your provider. 20 ml ropivacaine hydrochloride 5 mg/ml injection (1 source) Amide Local Anesthetic Start: 11-07-19 End: 11-07-19 OTHER, X (OR/PROCEDURE) PRN, Starting on Sun11/07/24 at 1340, Until Sun11/07/24 at 1340, Intraprocedure tezepelumab-ekko (TEZSPIRE) 210 mg/1.91 mL (110 mg/mL) injection (20 sources) Start: 06-02-20 End: 09-08-20 tezepelumab-ekko (TEZSPIRE) 210 mg/1.91 mL (110 mg/mL) injection INJECT 210MG SUBCUTANEOUSLY EVERY 4 WEEKS 1.91 mL 3 06/02/2024 09/08/2024 Discontinued Start: 06-02-2024 tezepelumab-ek ko (TEZSPIRE) 210 mg/1.91 mL (110 mg/mL) injection INJECT 210MG SUBCUTANEOUSLY EVERY 4 WEEKS 1.91 mL 3 06/02/2024 Active tezepelumab-ekko (TEZSPIRE) 210 mg/1.91 mL (110 mg/mL) pnij (1 source) Start: 12-13-2022 tezepelumab-ek ko (TEZSPIRE) 210 mg/1.91 mL (110 mg/mL) pnij Inject 210 mg subcutaneously every 4 weeks. 1.91 mL 11 12/13/2022 Active Comment on above: Inject 210 mg subcut aneously every 4 weeks. tezepelumab-ekko (TEZSPIRE) 210 mg/1.91 mL (110 mg/mL) pnij (20 sources) Start: 12-13-2022 End: 10-30-2023 tezepelumab-ekko (TEZSPIRE) 210 mg/1.91 mL (110 mg/mL) pnij Inject 210 mg subcutaneously every 4 weeks. 1.91 mL 12/13/2022 10/30/2023 Discontinued Start: 12-13-2022 tezepelumab-ek ko (TEZSPIRE) 210 mg/1.91 mL (110 mg/mL) pnij Inject 210 mg subcutaneously every 4 weeks. 1.91 mL 12/13/2022 Active Comment on above: Inject 210 mg subcut aneously every 4 weeks. tezepelumab-ekko (TEZSPIRE) 210 mg/1.91 mL (110 mg/mL) syringe (7 sources) Start: 06-12-2022 End: 09-06-2022 tezepelumab-ekko (TEZSPIRE) 210 mg/1.91 mL (110 mg/mL) syringe Inject 1.91 mL subcutaneously every 4 weeks. 1.91 mL 06/12/2022 09/06/2022 Discontinued (Other) Start: 06-12-2022 tezepelumab-ek ko (TEZSPIRE) 210 mg/1.91 mL (110 mg/mL) syringe Inject 1.91 mL subcutaneously every 4 weeks. 1.91 mL 06/12/2022 Active Comment on above: Inject 1.91 mL subcu taneously every 4 weeks. tezepelumab-ekko 210 mg subcutaneous injection (TEZSPIRE) (20 sources) Start: 06-15-2022 tezepelumab-ekko 210 mg subcutaneous injection (TEZSPIRE) TEZSPIRE 210 mg/1.91 mL (110 mg/mL) injection (17 sources) Start: 09-08-2024 End: 10-24-2024 TEZSPIRE 210 mg/1.91 mL (110 mg/mL) injection INJECT 1 PEN SUBCUTANEOUSLY EVERY 4 WEEKS 1.91 mL 09/08/2024 10/24/2024 Discontinued Start: 09-08-2024 TEZSPIRE 210 m g/1.91 mL (110 mg/mL) injection INJECT 1 PEN SUBCUTANEOUSLY EVERY 4 WEEKS 1.91 mL 09/08/2024 Active TEZSPIRE 210 mg/1.91 mL (110 mg/mL) pnij (20 sources) Start: 10-30-2023 End: 06-02-2024 TEZSPIRE 210 mg/1.91 mL (110 mg/mL) pnij INJECT 210MG SUBCUTANEOUSLY EVERY 4 WEEKS 1.91 mL 6 10/30/2023 06/02/2024 Discontinued Start: 10-30-2023 TEZSPIRE 210 m g/1.91 mL (110 mg/mL) pnij INJECT 210MG SUBCUTANEOUSLY EVERY 4 WEEKS 1.91 mL 6 10/30/2023 Active Comment on above: INJECT 210MG SUBCUTA NEOUSLY EVERY 4 WEEKS 60 actuat tiotropium 0.55653 mg/actuat inhalation spray (20 sources) Anticholinergic Start: 3 End: 4 take 1.25 ug by mouth once daily tiotropium bromide (SPIRIVA RESPIMAT) 1.25 mcg/actuation mist INHALE 2 PUFFS BY MOUTH INSTRUCTED ONCE DAILY. 3 Each 2 01/03/2023 06/11/2024 Discontinued Start: 01-01-2023 End: 01-03-2023 take 1.25 ug by mouth once daily SPIRIVA RESPIMAT 1.25 mcg/actuation mist INHALE 2 PUFFS BY MOUTH INSTRUCTED ONCE DAILY. 4 g 3 01/01/2023 01/03/2023 Discontinued Start: 04-19-2022 tiotropium bro mide (SPIRIVA RESPIMAT) 1.25 mcg/actuation mist Inhale 2 Puffs as instructed once daily. 1 Inhaler 11 04/19/2022 Active Comment on above: Inhale 2 Puffs as in structed once daily. INHALE 2 PUFFS BY [facility] INSTRUCTED ONCE DAILY. traMADol hydrochloride 50 mg oral tablet (3 sources) Opioid Agonist Start: 3 End: 3 take 1 tablet by mouth twice daily as needed for pain traMADol (ULTRAM) 50 mg tablet Indications: Back strain, initial encounter Take 1 tablet by mouth twice daily as needed for pain for up to 7 days. 14 tablet 0 05/25/2023 06/01/2023 Start: 04-13-2023 End: 04-20-2023 take 1 tablet by mouth twice daily as needed for pain traMADol (ULTRAM) 50 mg tablet Indications: Back strain, initial encounter Take 1 tablet by mouth twice daily as needed for pain for up to 7 days. 14 tablet 0 04/13/2023 04/20/2023 Comment on above: Take 1 tablet by ximena th twice daily as needed for pain for up to 7 days. 1 ml triamcinolone acetonide 40 mg/ml injection (1 source) Corticosteroid Start: 11-07-2024 End: 11-07-2024 INTRA-ARTICULAR, X (OR/PROCEDURE) PRN, Starting on Sun11/07/24 at 1340, Until Sun11/07/24 at 1340, Intraprocedure Problems Active Problems Problem Classification Problem Date Documented Da te Episodic/Chronic Abdominal pain (20 sources) Epigastric pain; Translations: [Epigastric pain] Onset: 07-23-2023 06-26-2023 Episodic Allergic reactions (2 sources) Allergic disposition; Translations: [Allergy status to unspecified drugs, medicaments and biological substances status] Onset: 01-06-2025 01-06-2025 Episodic Asthma (20 sources) Uncomplicated asthma; Translations: [Unspecified asthma, uncomplicated] Onset: 05-31-2022 Chronic Benign neoplasm of uterus (9 sources) Uterine leiomyoma; Translations: [Leiomyoma of uterus, unspecified] Onset: 01-29-2025 01-08-2025 Episodic Cancer; other and unspecified primary (1 source) History of gynecological disorder; Translations: [Personal history of other benign neoplasm] 01-02-2025 Episodic Complications of surgical procedures or medical care (1 source) Non dose-related adverse reaction to medication; Translations: [Unspecified adverse effect of drug or medicament, initial encounter] Episodic Endometriosis (7 sources) Uterine adenomyosis; Translations: [Adenomyosis] 01-08-2025 Chronic Genitourinary symptoms and ill-defined conditions (20 sources) Female stress incontinence; Translations: [Stress incontinence (female) (male)] Onset: 11-10-2021 11-10-2021 Chronic Hemorrhoids (1 source) Bleeding hemorrhoids; Translations: [Unspecified hemorrhoids] 06-16-2023 Episodic Inflammation; infection of eye (except that caused by tuberculosis or sexually transmitteddisease) (1 source) Acute conjunctivitis of right eye; Translations: [Unspecified acute conjunctivitis, right eye] Episodic Menstrual disorders (20 sources) Menorrhagia; Translations: [Excessive and frequent menstruation with regular cycle] Onset: 11-10-2021 11-10-2021 Chronic Other and unspecified benign neoplasm (1 source) Acquired melanocytic nevus; Translations: [Melanocytic nevi, unspecified] 09-15-2024 Episodic Other and unspecified benign neoplasm (1 source) Fibrous papule of face; Translations: [Other benign neoplasm of skin of unspecified part of face] 09-15-2024 Episodic Other and unspecified benign neoplasm (2 sources) Dysplastic nevus of skin; Translations: [Melanocytic nevi, unspecified] 09-15-2024 Episodic Other circulatory disease (2 sources) Vascular disorder; Translations: [Unspecified disorder of circulatory system] 02-27-2024 Episodic Other congenital anomalies (1 source) Congenital hamartoma; Translations: [Congenital non-neoplastic nevus] 09-15-2024 Chronic Other connective tissue disease (1 source) Cramp; Translations: [Cramp and spasm] Episodic Other female genital disorders (1 source) Pain in female genitalia on intercourse; Translations: [Unspecified dyspareunia] 01-02-2025 Chronic Other female genital disorders (2 sources) Polyp of corpus uteri; Translations: [Polyp of corpus uteri] 01-29-2025 Episodic Other female genital disorders (1 source) Polyp of corpus uteri; Translations: [Polyp of corpus uteri] Onset: 01-29-2025 Episodic Other gastrointestinal disorders (20 sources) Irritable bowel syndrome with diarrhea; Translations: [Irritable bowel syndrome with diarrhea] Onset: 07-19-2010 12-04-2023 Chronic Other gastrointestinal disorders (1 source) Irritable bowel syndrome with diarrhea; Translations: [Irritable bowel syndrome with diarrhea] Onset: 12-04-2023 Chronic Other gastrointestinal disorders (1 source) Loose [...] diarrhea; Translations: [Functional diarrhea] 08-07-2023 Episodic Other inflammatory condition of skin (1 source) Rosacea; Translations: [Rosacea, unspecified] 09-15-2024 Chronic Other injuries and conditions due to external causes (1 source) Allergic condition; Translations: [Allergy, unspecified, subsequent encounter] Episodic Other lower respiratory disease (2 sources) Wheezing; Translations: [Wheezing] Episodic Other lower respiratory disease (3 sources) Cough; Translations: [Cough] Episodic Other lower respiratory disease (2 sources) Cough; Translations: [Acute cough] 09-29-2024 Episodic Other nervous system disorders (1 source) Other acute postprocedural pain; Translations: [Acute post-operative pain] Onset: 11-01-2023 Episodic Other nervous system disorders (2 sources) Disorder of the central nervous system; Translations: [Disorder of central nervous system, unspecified] 02-27-2024 Episodic Other non-traumatic joint disorders (2 sources) Multiple joint pain; Translations: [Pain in unspecified joint] 05-04-2023 Episodic Other non-traumatic joint disorders (7 sources) Hip pain; Translations: [Pain in right hip] 05-25-2023 Episodic Other nutritional; endocrine; and metabolic disorders (1 source) Obesity; Translations: [Other obesity due to excess calories] Chronic Other nutritional; endocrine; and metabolic disorders (2 sources) Obesity caused by energy imbalance; Translations: [Other obesity due to excess calories] 05-04-2023 Chronic Other skin disorders (1 source) Seborrheic keratosis; Translations: [Other seborrheic keratosis] 09-15-2024 Episodic Other skin disorders (1 source) Skin striae; Translations: [Striae atrophicae] 09-15-2024 Episodic Other skin disorders (1 source) Decorative tattoo; Translations: [Other specified disorders of pigmentation] 09-15-2024 Episodic Other upper respiratory disease (4 sources) Allergic rhinitis; Translations: [Allergic rhinitis, unspecified] Chronic Other upper respiratory disease (20 sources) Allergic rhinitis due to pollen; Translations: [Allergic rhinitis due to pollen] Onset: 05-31-2022 Chronic Other upper respiratory disease (20 sources) Chronic rhinitis; Translations: [Chronic rhinitis] Onset: 05-31-2022 Chronic Other upper respiratory disease (1 source) Hoarse; Translations: [Dysphonia] 08-04-2024 Episodic Other upper respiratory disease (1 source) Polyp of nasal cavity and/or nasal sinus; Translations: [Nasal polyp, unspecified] 08-04-2024 Episodic Other upper respiratory infections (3 sources) Posterior rhinorrhea; Translations: [Postnasal drip] Episodic Ovarian cyst (2 sources) Hemorrhagic cyst of ovary; Translations: [Unspecified ovarian cyst, unspecified side] 01-08-2025 Episodic Residual codes; unclassified (1 source) Other specified postprocedural states; Translations: [S/P hip arthroscopy] Onset: 11-01-2023 Episodic Residual codes; unclassified (1 source) Family history of malignant neoplasm of skin; Translations: [Family history of malignant neoplasm of other organs or systems] 09-15-2024 Episodic Thyroid disorders (3 sources) Goiter; Translations: [Nontoxic goiter, unspecified] Onset: 10-17-2024 07-25-2024 Chronic Unclassified (1 source) APPOINTMENT CANCELLED 04-01-2023 Unclassified (1 source) Adenomyosis; Translations: [Adenomyosis] Onset: 01-29-2025 Unclassified (1 source) Acute cough; Translations: [Acute cough] Onset: 09-29-2024 Viral infection (2 sources) Viral disease; Translations: [Viral infection, unspecified] Episodic Past or Other Problems Problem Classification Problem Date Documented Da te Episodic/Chronic Essential hypertension (20 sources) Benign essential hypertension; Translations: [Essential (primary) hypertension] Onset: 04-19-2021 Resolved: 12-04-2023 04-19-2021 Chronic Fever of unknown origin (2 sources) Pyrexia of unknown origin; Translations: [Fever, unspecified] Onset: 08-04-2024 08-04-2024 Episodic Gastrointestinal hemorrhage (20 sources) Rectal hemorrhage; Translations: [Hemorrhage of anus and rectum] Onset: 07-23-2023 06-26-2023 Episodic Immunizations and screening for infectious disease (11 sources) Patient encounter status; Translations: [Encounter for immunization] Onset: 07-18-2024 Episodic Malaise and fatigue (2 sources) Fatigue; Translations: [Other fatigue] Onset: 08-04-2024 08-04-2024 Episodic Nausea and vomiting (20 sources) Nausea; Translations: [Nausea] Onset: 07-23-2023 06-26-2023 Episodic Nonspecific chest pain (20 sources) Chest pain; Translations: [Chest pain, unspecified] Onset: 04-19-2021 Resolved: 12-04-2023 04-19-2021 Episodic Other and unspecified benign neoplasm (1 source) Melanocytic nevi, unspecified; Translations: [Numerous moles] Onset: 07-18-2024 Episodic Other circulatory disease (1 source) Unspecified disorder of circulatory system; Translations: [Vasculopathy] Onset: 09-01-2024 Episodic Other female genital disorders (20 sources) Polyp of cervix; Translations: [Polyp of cervix uteri] Onset: 11-10-2021 11-10-2021 Episodic Other gastrointestinal disorders (15 sources) Diarrhea; Translations: [Diarrhea, unspecified] Onset: 07-19-2010 06-26-2023 Episodic Other lower respiratory disease (20 sources) Dyspnea; Translations: [Shortness of breath] Onset: 04-19-2021 04-19-2021 Episodic Other nervous system disorders (1 source) Disorder of central nervous system, unspecified; Translations: [Disorder of central nervous system, unspecified] Onset: 09-01-2024 Episodic Other non-traumatic joint disorders (1 source) Pain in left hip; Translations: [Pain in left hip] Onset: 11-07-2024 Episodic Other screening for suspected conditions (not mental disorders or infectious disease) (8 sources) Mammography abnormal; Translations: [Other abnormal and inconclusive findings on diagnostic imaging of breast] Onset: 07-18-2024 07-24-2024 Episodic Other upper respiratory disease (1 source) Dysphonia; Translations: [Hoarseness of voice] Onset: 08-04-2024 Episodic Other upper respiratory disease (1 source) Nasal polyp, unspecified; Translations: [Nasal polyp] Onset: 08-04-2024 Episodic Screening and history of mental health and substance abuse codes (2 sources) Encounter for screening for depression; Translations: [Encounter for screening examination for other mental health and behavioral disorders] Onset: 07-18-2024 Episodic Spondylosis; intervertebral disc disorders; other back problems (20 sources) Lumbar radiculopathy; Translations: [Radiculopathy, lumbar region] Onset: 10-17-2024 09-19-2024 Episodic Sprains and strains (20 sources) Strain of back muscle; Translations: [Strain of muscle, fascia and tendon of lower back, initial encounter] Onset: 09-14-2023 Resolved: 07-18-2024 04-13-2023 Episodic Results Test Name Value Interpretation Reference Range Facility H AND P Exam - OB/GYNon 06-0 H&P 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 Diane Bazzi MD Status:PRE SDC Location: SDC History and Physical Date of Admission: 03/06/25 Expand All Collapse All Pre-Op History and Physical HPI: The patient is a 39 year old female presenting for pre-operative visit. She is scheduled for TLH, bilateral salpingectomy, cysto, for pelvic pain, AUB, adenomyosis, fibroid uterus, endometrial polyp. on 03/06/25. Procedure discussed along with risks, benefits and complications. Other alternatives discussed for management. Consent form signed? Yes. PAST MEDICAL HISTORY PAST MEDICAL HISTORY Diagnosis Date ??? Acetabular labrum tear, left, initial encounter 09/14/2023 ??? Acetabular labrum tear, unspecified laterality, subsequent encounter 09/14/2023 ??? Asthma (HCC) ??? Constipation ??? Diarrhea ??? Dyspnea on exertion ??? History of echocardiogram 05/13/2021 EF 60-65% RV systolic pressure 25mmHg R atrial pressure 3mmHg ??? History of stress test 05/13/2021 no ischemic electrocardiogrpahic changes noted pt developed chest pressure ehich resolved in recovery phase average exercise capacity for age baseline htn with a normal BP response to exercise ??? Tear of right acetabular labrum 12/14/2023 PAST SURGICAL HISTORY PAST SURGICAL HISTORY Procedure Laterality Date ??? ABDOMINAL SURGERY HX ??? APPENDECTOMY ??? CHOLECYSTECTOMY 09/24/2002 Cholecystectomy ??? COLONOSCOPY 07/23/2023 ??? EGD 07/23/2023 ??? LAPS ABD PRTM OMENTUM DX W/WO SPEC BR/WA SPX 11/22/2008 Laparoscopy and D C ??? OPEN HIP LABRAL REPAIR (COMP 08672) Left 12/13/2023 ??? OPEN HIP LABRAL REPAIR (COMP 25837) Right 11/01/2023 CURRENT MEDICATIONS Current Outpatient Medications Medication Sig Dispense Refill ??? tezepelumab-ekko (TEZSPIRE) 210 mg/1.91 mL (110 mg/mL) pen injector Inject 210 mg subcutaneously every 4 weeks. 1.91 mL 11 ??? albuterol (PROVENTIL) 2.5 mg /3 mL (0.083 %) nebulizer solution Use 3 mL via nebulizer every 4 hours as needed for wheezing/shortness of breath. 360 mL 2 ??? albuterol HFA (PROVENTIL HFA, VENTOLIN HFA) 90 mcg/actuation inhaler Inhale 2 Puffs as instructed every 4 hours as needed for wheezing/shortness of breath. 1 Each 5 ??? biotin 5 mg tab Take 5 mg by mouth once daily. ??? B.animalis,bifid,infanti s,long (PROBIOTIC 4X ORAL) Take by mouth. ??? fluticasone-salmeterol HFA (ADVAIR HFA) 230-21 mcg/actuation inhaler Inhale 2 Puffs as instructed two times a day. 36 g 3 ??? fluticasone (FLONASE) 50 mcg/actuation nasal spray Use 2 Sprays in each nostril once daily. 3 Each 3 ??? montelukast (SINGULAIR) 10 mg tablet TAKE 1 TABLET BY MOUTH DAILY AT BEDTIME 90 tablet 3 ??? azelastine 0.1% nasal spray Use 2 Sprays in each nostril two times a day as needed. 90 mL 2 ??? ondansetron orally disintegrating (ZOFRAN ODT) 4 mg disintegrating tablet Take 1 tablet by mouth every 8 hours as needed for nausea/vomiting. 9 tablet 0 ??? PREDNISONE ORAL Take by mouth as needed. Burst ??? fexofenadine (GM) 180 mg tablet Take 180 mg by mouth once daily as needed. ??? cetirizine (ZYRTEC) 10 mg tablet Take 10 mg by mouth once daily. ??? methocarbamol (ROBAXIN) 500 mg tablet Take 1-2 tablets at bedtime as needed for pain or muscle spasms 20 tablet 0 No current facility-administered medications for this visit. ALLERGIES: Clindamycin and Septra [Sulfamethoxazole-Trimet hopri] PERSONAL HISTORY: SOCIAL HISTORY Social History Tobacco Use ??? Smoking status: Never Passive exposure: Never ??? Smokeless tobacco: Never Vaping Use ??? Vaping status: Never Used Substance Use Topics ??? Alcohol use: Not Currently ??? Drug use: Not Currently Types: Marijuana FAMILY HISTORY: FAMILY HISTORY FAMILY HISTORY Problem Relation Age of Onset ??? other (cerical cancer) Mother ??? Asthma Sister ??? Heart Maternal Grandmother REVIEW OF SYMPTOMS: negative except as noted above PHYSICAL EXAMINATION: VITALS: Blood pressure 116/72, pulse 65, resp. rate 16, height 163.8 cm (5' 4.5), weight 88 kg (194 lb), last menstrual period 02/19/2025, SpO2 100%. GENERAL: The patient is well nourished, well hydrated in no acute distress. , The patient is oriented to time, place, and person. NECK: full range of motion LUNGS: Clear to auscultation bilaterally. no wheezes, rhonchi or rales HEART: Regular rate and rhythm, Normal heart sounds, and No murmurs or gallops IMPRESSION: 39 yo with AUB, adneomyosis, pelvic pain , fibroid uterus, endometrial polyp PLAN: TLH, bilateral salpingectomy, Cysto Pt has been counseled on risks/benefits and alternatives of surgery including but not (more content not included)... Normal [facility] 12 Lead EKGon 02-27-2025 12 Lead EKG [facility] Cardi[facility] [address] [place] [address] 12 Lead EKG 02/27/25 0748 MR#: [id number] Acct: [id number] Name: BESSIE SOLOMON Rep #: [id number] : 1985 39 From: Cathy Gonzalez MD Attending Dr: Dr Al Chacko MD Sta tus: PRE SDC Ordering Dr: Trev Almonte MD Date: 02/27/25 Location: [facility] Sex: F C Admitted: Test Reason : PREOP Blood Pressure : */* mmHG Vent. Rate : 57 BPM Atrial Rate : 57 BPM P-R Int : 170 ms QRS Dur : 80 ms QT Int : 408 ms P-R-T Axes : 11 28 34 degrees QTcB Int : 397 ms Sinus bradycardia Otherwise normal ECG Confirmed by ELLIS DEAN, KENNETH ([id number]), editorial cartoonist FORTINO CROWLEY ([id number]) on 03/02/2025 6:49:01 AM Referred By: Al Chacko Confirmed By: KENNETH GONZALEZ MD 03/02/25 0649 Date Cathy Gonzalez MD CC: Dr Al Chacko MD; Dr. Trev Almonte MD; Dr. Diane Bazzi MD Signed Normal [facility] Basic Metabolic Profile (BMP )on 02-27-2025 BUN/CRE 14.7 RATIO Normal 10-20 [facility] Comment on above: Performed By: #### L 500.2500, L100.0500, BTSPAT #### [facility] [address] [place], [address] Calcium [Mass/Vol] 9.2 mg/dL Normal 7.6-11.0 [facility] Comment on above: Performed By: #### L 500.2500, L100.0500, BTSPAT #### [facility] [address] [place], [address] Chloride [Moles/Vol] 105 mmol/L Normal 98-108 [facility] Comment on above: Performed By: #### L 500.2500, L100.0500, BTSPAT #### [facility] [address] [place], [address] CO2 [Moles/Vol] 27.2 mmol/L Normal 21.0-32.0 [facility] Comment on above: Performed By: #### L 500.2500, L100.0500, BTSPAT #### [facility] [address] [place], [address] Creatinine [Mass/Vol] 0.77 mg/dL Normal 0.70-1.20 [facility] Comment on above: Performed By: #### L 500.2500, L100.0500, BTSPAT #### [facility] [address] [place], [address] GAP 9 Normal 5-15 [facility] Comment on above: Performed By: #### L 500.2500, L100.0500, BTSPAT #### [facility] [address] [place], [address] GFR/1.73 sq M.predicted among non-blacks MDRD (S/P/Bld) [Vol rate/Area] 100 mL/min/{1.73_m2} Normal >60 [facility] Comment on above: Result Comment: mL/m in/1.73m2 CKD-EPI Creatinine Equation (2020) Performed By: #### L 500.2500, L100.0500, BTSPAT #### [facility] [address] [place], [address] Glucose [Mass/Vol] 92 mg/dL Normal 70-99 [facility] Comment on above: Performed By: #### L 500.2500, L100.0500, BTSPAT #### [facility] [address] [place], [address] Potassium [Moles/Vol] 3.8 mmol/L Normal 3.3-5.1 [facility] Comment on above: Performed By: #### L 500.2500, L100.0500, BTSPAT #### [facility] [address] [place], [address] Sodium [Moles/Vol] 141 mmol/L Normal 133-145 [facility] Comment on above: Performed By: #### L 500.2500, L100.0500, BTSPAT #### [facility] [address] [place], [address] Urea nitrogen [Mass/Vol] 11 mg/dL Normal 4-19 [facility] Comment on above: Performed By: #### L 500.2500, L100.0500, BTSPAT #### [facility] [address] [place], [address] CBC-Complete Blood Cnt No Di ffon 02-27-2025 Erythrocyte distribution width (RBC) [Ratio] 12.4 % Normal 11.6-14.6 [facility] Comment on above: Performed By: #### L 500.2500, L100.0500, BTSPAT #### [facility] [address] [place], [address] Hematocrit (Bld) [Volume fraction] 35.4 % Low 37-47 [facility] Comment on above: Performed By: #### L 500.2500, L100.0500, BTSPAT #### [facility] [address] [place], [address] Hemoglobin (Bld) [Mass/Vol] 12.0 g/dL Normal 12.0-15.0 [facility] Comment on above: Performed By: #### L 500.2500, L100.0500, BTSPAT #### [facility] [address] [place], [address] MCH (RBC) [Entitic mass] 31.3 pg Normal 27.0-32.0 [facility] Comment on above: Performed By: #### L 500.2500, L100.0500, BTSPAT #### [facility] [address] [place], [address] MCHC (RBC) [Mass/Vol] 33.9 g/dL Normal 32-36 [facility] Comment on above: Performed By: #### L 500.2500, L100.0500, BTSPAT #### [facility] [address] [place], [address] MCV (RBC) [Entitic vol] 92.4 fL Normal 81-99 [facility] Comment on above: Performed By: #### L 500.2500, L100.0500, BTSPAT #### [facility] [address] [place], [address] Platelet mean volume (Bld) [Entitic vol] 11.1 fL Normal 6.2-12.0 [facility] Comment on above: Performed By: #### L 500.2500, L100.0500, BTSPAT #### [facility] [address] [place], [address] Platelets (Bld) [#/Vol] 207 10*3/uL Normal 150-450 [facility] Comment on above: Performed By: #### L 500.2500, L100.0500, BTSPAT #### [facility] [address] [place], [address] RBC (Bld) [#/Vol] 3.83 10*6/uL Low 4.2-5.4 [facility] Comment on above: Performed By: #### L 500.2500, L100.0500, BTSPAT #### [facility] [address] [place], [address] RDW SD 42.2 fl Normal 35.1-43.9 [facility] Comment on above: Performed By: #### L 500.2500, L100.0500, BTSPAT #### [facility] [address] [place], [address] WBC (Bld) [#/Vol] 4.4 10*3/uL Normal 4.4-11.0 [facility] Comment on above: Performed By: #### L 500.2500, L100.0500, BTSPAT #### [facility] [address] [place] [place], [address] MR/PAT.ANEon 02-27-2025 MR/PAT.CHANA [facility] Medical Records Department [address] [place] [address] PAT - Anesthesia 02/27/25 08 MR#: [id number] Acct: [id number] Name: BESSIE SOLOMON Rep #: [id number] : 1985 39 From: Sixto Vines MD PCP: Dr. 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 When Was Last Pacemaker Check QUESTION #4 FULL TEXT: You/Your Family Experience fever (hyperthermia) with Anesthesia Last Oral Intake Last Oral intake: Last Oral Intake NPO since Meds taken in AM with sips of water? 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 Female Yes 02/23/25 14:19 HX of Motion Sickness Yes 02/23/25 14:19 HX of N/V After Surgery Yes 02/23/25 14:19 Non-Smoker Yes 02/23/25 14:19 Duration of Surgery greater Yes 02/23/25 14:19 than 60 minutes Number of Risk Factors 5 02/23/25 14:19 PONV Score Severe Risk 02/23/25 14:19 Respiratory Assessment Respiratory Assessment - farmer cash grain: Respiratory Tract Infection Hx - farmer cash grain Hx Respiratory Tract Infection No 02/23/25 14:19 STOP Sleep Apnea STOP Sleep Apnea - farmer cash grain: STOP Sleep Apnea - farmer cash grain Hx Hypertension No 02/23/25 14:19 Hx Sleep Apnea No 02/23/25 14:19 CPAP BIPAP Do you snore loudly (louder No 02/23/25 14:19 than talking or can be heard Do you often feel tired/ No 02/23/25 14:19 fatigued/ sleepy during daytime? Has anyone observed you stop No 02/23/25 14:19 breathing during sleep? STOP Results Negative 02/23/25 14:19 QUESTION #5 FULL TEXT : Do you snore loudly (louder than talking or can be heard through closed doors)? 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 Specify any problems Hx of Preganancy in last 3 No 02/23/25 14:19 Months Nurse Filling Out Transfusion DSCHRIBER 02/23/25 14:19 Questions: Date: 02/23/25 02/23/25 14:19 Time: 14:21 02/23/25 14:19 Patient unable to answer at this time (ie. confused, unrespo /Reproduction History /Reproductive History - farmer cash grain: /Reproductive Hx- farmer cash grain Hx Now No 02/23/25 14:19 Gestational Age (in weeks): EDC: Hx Hx Para Hx Section SAB No 02/23/25 14:19 [facility] Medical History (Updated 02/23/25 @ 14:27 by Shea Mays) Wears glasses Back pain History of hiatal hernia History of IBS Asthma Leg cramps Non-smoker History of echocardiogram History of stress test Cardiology follow-up encounter Home Medications ???Medication ???Instructions ???Recorded ???Last Taken ???Type Lactobacillus acidophilus 250 60 mmu cells PO DAILY 02/23/25 Unk nown History million cell capsule (Probiotic Acidophilus) albuterol sulfate 2.5 mg/3 mL 2.5 mg inhalation Q4H PRN 02/23/25 Unknown History (0.083 %) solution for nebulization shortness of breath or wheezing albuterol sulfate 90 mcg/actuation 2 inh inhalation Q8H PRN shortne ss 02/23/25 Unknown History aerosol inhaler (Ventolin HFA) of breath or wheezing azelastine 137 mcg (0.1 %) nasal 2 spray intranasal BID 02/23/25 Un known History spray cetirizine 10 mg capsule (Zyrtec) 10 mg PO DAILY PRN allergy sympto ms 02/23/25 Unknown History fexofenadine 180 mg tablet 180 mg PO DAILY 02/23/25 Unknown H istory (Allergy Relief (fexofenadine)) (more content not included)... Normal [facility] Magnesiumon 02-27-2025 Magnesium [Mass/Vol] 2.1 mg/dL Normal 1.5-2.2 [facility] Comment on above: Performed By: #### L 501.5200 #### [facility] [address] [place], [place], [id number] Type AND Screen - PAT ONLYon 02-27-2025 Ab SCREEN GEL Negative Normal [facility] Comment on above: Order Comment: Surge ry Date: 03/06/25 Reason for Laboratory Test PREOP [id number] No N N S HYSTERECTOMY TLH BSO Performed By: #### L 500.2500, L100.0500, BTSPAT #### [facility] [address] [place], [address] OVon 02-20-2025 CNOV Office Visit (OBGYWM ) -------- BESSIE MACKEY ([id number]) 1985 F Date Time Provider Department 02/20/25 9:20 AM AL KABA OBGYWM During your visit today, we recorded the following information about you: Pulse Respiration Blood pressure Weight 65/minute 16/minute 116/72 88 kg Height Last Period 1.638 m 02/19/25 Al Kaba MD 02/20/2025 9:48 AM Signed Pre-Op History and Physical HPI: The patient is a 39 year old female presenting for pre-operative visit. She is scheduled for TLH, bilateral salpingectomy, cysto, for pelvic pain, AUB, adenomyosis, fibroid uterus, endometrial polyp. on 03/06/25. Procedure discussed along with risks, benefits and complications. Other alternatives discussed for management. Consent form signed? Yes. PAST MEDICAL HISTORY Diagnosis Date Acetabular labrum tear, left, initial encounter 09/14/2023 Acetabular labrum tear, unspecified laterality, subsequent encounter 09/14/2023 Asthma (HCC) Constipation Diarrhea Dyspnea on exertion History of echocardiogram 05/13/2021 EF 60-65% RV systolic pressure 25mmHg R atrial pressure 3mmHg History of stress test 05/13/2021 no ischemic electrocardiogrpahic changes noted pt developed chest pressure ehich resolved in recovery phase average exercise capacity for age baseline htn with a normal BP response to exercise Tear of right acetabular labrum 12/14/2023 PAST SURGICAL HISTORY Procedure Laterality Date ABDOMINAL SURGERY HX APPENDECTOMY CHOLECYSTECTOMY 09/24/2002 Cholecystectomy COLONOSCOPY 07/23/2023 EGD 07/23/2023 LAPS ABD PRTMANDOMENTUM DX W/WO SPEC BR/WA SPX 11/22/2008 Laparoscopy and DANDC OPEN HIP LABRAL REPAIR (COMP 98537) Left 12/13/2023 OPEN HIP LABRAL REPAIR (COMP 99067) Right 11/01/2023 Current Outpatient Medications Medication Sig Dispense Refill tezepelumab-ekko (TEZSPIRE) 210 mg/1.91 mL (110 mg/mL) pen injector Inject 210 mg subcutaneously every 4 weeks. 1.91 mL 11 albuterol (PROVENTIL) 2.5 mg /3 mL (0.083 %) nebulizer solution Use 3 mL via nebulizer every 4 hours as needed for wheezing/shortness of breath. 360 mL 2 albuterol HFA (PROVENTIL HFA, VENTOLIN HFA) 90 mcg/actuation inhaler Inhale 2 Puffs as instructed every 4 hours as needed for wheezing/shortness of breath. 1 Each 5 biotin 5 mg tab Take 5 mg by mouth once daily. B.animalis,bifid,infanti s,long (PROBIOTIC 4X ORAL) Take by mouth. fluticasone-salmeterol HFA (ADVAIR HFA) 230-21 mcg/actuation inhaler Inhale 2 Puffs as instructed two times a day. 36 g 3 fluticasone (FLONASE) 50 mcg/actuation nasal spray Use 2 Sprays in each nostril once daily. 3 Each 3 montelukast (SINGULAIR) 10 mg tablet TAKE 1 TABLET BY MOUTH DAILY AT BEDTIME 90 tablet 3 azelastine 0.1% nasal spray Use 2 Sprays in each nostril two times a day as needed. 90 mL 2 ondansetron orally disintegrating (ZOFRAN ODT) 4 mg disintegrating tablet Take 1 tablet by mouth every 8 hours as needed for nausea/vomiting. 9 tablet 0 PREDNISONE ORAL Take by mouth as needed. Burst fexofenadine (GM) 180 mg tablet Take 180 mg by mouth once daily as needed. cetirizine (ZYRTEC) 10 mg tablet Take 10 mg by mouth once daily. methocarbamol (ROBAXIN) 500 mg tablet Take 1-2 tablets at bedtime as needed for pain or muscle spasms 20 tablet 0 No current facility-administered medications for this visit. ALLERGIES: Clindamycin and Septra [Sulfamethoxazole-Trimet hoprim] PERSONAL HISTORY: Social History Tobacco Use Smoking status: Never Passive exposure: Never Smokeless tobacco: Never Vaping Use Vaping status: Never Used Substance Use Topics Alcohol use: Not Currently Drug use: Not Currently Types: Marijuana FAMILY HISTORY: FAMILY HISTORY Problem Relation Age of Onset other (cerical cancer) Mother Asthma Sister Heart Maternal Grandmother REVIEW OF SYMPTOMS: negative except as noted above PHYSICAL EXAMINATION: VITALS: Blood pressure 116/72, pulse 65, resp. rate 16, height 163.8 cm (5' 4.5), weight 88 kg (194 lb), last menstrual period 02/19/2025, SpO2 100%. GENERAL: The patient is well nourished, well hydrated in no acute distress. , The patient is oriented to time, place, and person. NECK: full range of motion LUNGS: Clear to auscultation bilaterally. no wheezes, rhonchi or rales HEART: Regular rate and rhythm, Normal heart sounds, and No murmurs or gallops IMPRESSION: 39 yo with AUB, adneomyosis, pelvic pain , fibroid uterus, endometrial polyp PLAN: TLH, bilateral salpingectomy, Cysto Pt has been counseled on risks/benefits and alternatives of surgery including but not limited to anesthesia, bleeding, infection, injury to pelvic structures including bowel, bladder, ureters and vessels. Pt wishes to proceed with surgery at this time. Pre and post op instructions reviewed- declines narcotics after surgery I have reviewed and upda (more content not included)... Normal [facility] BESSIE SOLOMON ([id number]) 1985 F Date Time Provider Department 02/20/25 AL KABA OBAMBIKA During your visit today, we recorded the following information about you: Curtis Brooks, MICKEY 02/20/2025 10:36 AM Signed Patient called in and states she was told by Dr Kennedy that she would have blood work today. None ordered. Please advise. Al Kaba MD 02/20/2025 11:11 AM Signed Not today- I ordered it pre op with hospital. Lucretia Gallardo RN 02/20/2025 11:49 AM Signed Attempted to call patient, but phone was staticky and then call dropped. [employer] message sent. Lucretia Gallardo RN Allergies As of Date: 02/20/2025 Noted Allergy Reaction CLINDAMYCIN 05/09/2010 2 - Rash 8 - GI Upset SEPTRA (SULFAMETHOXAZOLE-TRIMET HO*05/09/2010 2 - Rash 8 - GI Upset Date Reviewed: 02/20/2025 Reviewed by: Kathy Jacobson MA - Fully Assessed Reason for Visit: pre op question [Other] Prescriptions as of 02/20/2025 - tezepelumab-ekko (TEZSPIRE) 210 mg/1.91 mL (110 mg/mL) pen injector Inject 210 mg subcutaneously every 4 weeks. - albuterol (PROVENTIL) 2.5 mg /3 mL (0.083 %) nebulizer solution Use 3 mL via nebulizer every 4 hours as needed for wheezing/shortness of breath. - albuterol HFA (PROVENTIL HFA, VENTOLIN HFA) 90 mcg/actuation inhaler Inhale 2 Puffs as instructed every 4 hours as needed for wheezing/shortness of breath. - methocarbamol (ROBAXIN) 500 mg tablet Take 1-2 tablets at bedtime as needed for pain or muscle spasms - biotin 5 mg tab Take 5 mg by mouth once daily. - B.animalis,bifid,infanti s,long (PROBIOTIC 4X ORAL) Take by mouth. - fluticasone-salmeterol HFA (ADVAIR HFA) 230-21 mcg/actuation inhaler Inhale 2 Puffs as instructed two times a day. - fluticasone (FLONASE) 50 mcg/actuation nasal spray Use 2 Sprays in each nostril once daily. - montelukast (SINGULAIR) 10 mg tablet TAKE 1 TABLET BY MOUTH DAILY AT BEDTIME - azelastine 0.1% nasal spray Use 2 Sprays in each nostril two times a day as needed. - ondansetron orally disintegrating (ZOFRAN ODT) 4 mg disintegrating tablet Take 1 tablet by mouth every 8 hours as needed for nausea/vomiting. - PREDNISONE ORAL Take by mouth as needed. Burst - fexofenadine (GM) 180 mg tablet Take 180 mg by mouth once daily as needed. - cetirizine (ZYRTEC) 10 mg tablet Take 10 mg by mouth once daily. Problem List As Of Date 02/20/2025 Noted Resolved Irritable bowel syndrome with diarrhea [K58.0] 07/19/2010 Chest pain [R07.9] 04/19/2021 12/04/2023 SOB (shortness of breath) [R06.02] 04/19/2021 Essential hypertension, benign [I10] 04/19/2021 12/04/2023 Stress incontinence in female [N39.3] 11/10/2021 Menorrhagia with regular cycle [N92.0] 11/10/2021 Dysmenorrhea [N94.6] 11/10/2021 Cervical polyp [N84.1] 11/10/2021 Severe persistent asthma without complication [*05/31/2022 Seasonal allergic rhinitis due to pollen [J30.1]05/31/2022 Chronic rhinitis [J31.0] 05/31/2022 Epigastric pain [R10.13] 07/23/2023 Nausea [R11.0] 07/23/2023 Rectal bleeding [K62.5] 07/23/2023 Acetabular labrum tear, unspecified laterality,*09/14/2023 07/18/2024 Acetabular labrum tear, left, initial encounter*09/14/2023 07/18/2024 Tear of right acetabular labrum [S73.191A] 12/14/2023 07/18/2024 Acetabular labrum tear, left, subsequent encoun*10/17/2024 Radiculopathy, lumbar region [M54.16] 10/17/2024 Encounter Status:Closed by LUCRETIA GALLARDO on 02/20/25 Normal [facility] HISTORY PHYSICALon HISTORY PHYSICAL HNO ID: [id number] Author: AL KABA MD Service: ? Author Type: Physician Type: H&P Filed: 02/20/2025 09:48 Note Text: Pre-Op History and Physical HPI: The patient is a 39 year old female presenting for pre-operative visit. She is scheduled for TLH, bilateral salpingectomy, cysto, for pelvic pain, AUB, adenomyosis, fibroid uterus, endometrial polyp. on 03/06/25. Procedure discussed along with risks, benefits and complications. Other alternatives discussed for management. Consent form signed? Yes. PAST MEDICAL HISTORY Diagnosis Date Acetabular labrum tear, left, initial encounter 09/14/2023 Acetabular labrum tear, unspecified laterality, subsequent encounter 09/14/2023 Asthma (HCC) Constipation Diarrhea Dyspnea on exertion History of echocardiogram 05/13/2021 EF 60-65% RV systolic pressure 25mmHg R atrial pressure 3mmHg History of stress test 05/13/2021 no ischemic electrocardiogrpahic changes noted pt developed chest pressure ehich resolved in recovery phase average exercise capacity for age baseline htn with a normal BP response to exercise Tear of right acetabular labrum 12/14/2023 PAST SURGICAL HISTORY Procedure Laterality Date ABDOMINAL SURGERY HX APPENDECTOMY CHOLECYSTECTOMY 09/24/2002 Cholecystectomy COLONOSCOPY 07/23/2023 EGD 07/23/2023 LAPS ABD PRTMANDOMENTUM DX W/WO SPEC BR/WA SPX 11/22/2008 Laparoscopy and DANDC OPEN HIP LABRAL REPAIR (COMP 28669) Left 12/13/2023 OPEN HIP LABRAL REPAIR (COMP 20421) Right 11/01/2023 Current Outpatient Medications Medication Sig Dispense Refill tezepelumab-ekko (TEZSPIRE) 210 mg/1.91 mL (110 mg/mL) pen injector Inject 210 mg subcutaneously every 4 weeks. 1.91 mL 11 albuterol (PROVENTIL) 2.5 mg /3 mL (0.083 %) nebulizer solution Use 3 mL via nebulizer every 4 hours as needed for wheezing/shortness of breath. 360 mL 2 albuterol HFA (PROVENTIL HFA, VENTOLIN HFA) 90 mcg/actuation inhaler Inhale 2 Puffs as instructed every 4 hours as needed for wheezing/shortness of breath. 1 Each 5 biotin 5 mg tab Take 5 mg by mouth once daily. B.animalis,bifid,infanti s,long (PROBIOTIC 4X ORAL) Take by mouth. fluticasone-salmeterol HFA (ADVAIR HFA) 230-21 mcg/actuation inhaler Inhale 2 Puffs as instructed two times a day. 36 g 3 fluticasone (FLONASE) 50 mcg/actuation nasal spray Use 2 Sprays in each nostril once daily. 3 Each 3 montelukast (SINGULAIR) 10 mg tablet TAKE 1 TABLET BY MOUTH DAILY AT BEDTIME 90 tablet 3 azelastine 0.1% nasal spray Use 2 Sprays in each nostril two times a day as needed. 90 mL 2 ondansetron orally disintegrating (ZOFRAN ODT) 4 mg disintegrating tablet Take 1 tablet by mouth every 8 hours as needed for nausea/vomiting. 9 tablet 0 PREDNISONE ORAL Take by mouth as needed. Burst fexofenadine (GM) 180 mg tablet Take 180 mg by mouth once daily as needed. cetirizine (ZYRTEC) 10 mg tablet Take 10 mg by mouth once daily. methocarbamol (ROBAXIN) 500 mg tablet Take 1-2 tablets at bedtime as needed for pain or muscle spasms 20 tablet 0 No current facility-administered medications for this visit. ALLERGIES: Clindamycin and Septra [Sulfamethoxazole-Trimet hoprim] PERSONAL HISTORY: Social History Tobacco Use Smoking status: Never Passive exposure: Never Smokeless tobacco: Never Vaping Use Vaping status: Never Used Substance Use Topics Alcohol use: Not Currently Drug use: Not Currently Types: Marijuana FAMILY HISTORY: FAMILY HISTORY Problem Relation Age of Onset other (cerical cancer) Mother Asthma Sister Heart Maternal Grandmother REVIEW OF SYMPTOMS: negative except as noted above PHYSICAL EXAMINATION: VITALS: Blood pressure 116/72, pulse 65, resp. rate 16, height 163.8 cm (5' 4.5), weight 88 kg (194 lb), last menstrual period 02/19/2025, SpO2 100%. GENERAL: The patient is well nourished, well hydrated in no acute distress. , The patient is oriented to time, place, and person. NECK: full range of motion LUNGS: Clear to auscultation bilaterally. no wheezes, rhonchi or rales HEART: Regular rate and rhythm, Normal heart sounds, and No murmurs or gallops IMPRESSION: 39 yo with AUB, adneomyosis, pelvic pain , fibroid uterus, endometrial polyp PLAN: TLH, bilateral salpingectomy, Cysto Pt has been counseled on risks/benefits and alternatives of surgery including but not limited to anesthesia, bleeding, infection, injury to pelvic structures including bowel, bladder, ureters and vessels. Pt wishes to proceed with surgery at this time. Pre and post op instructions reviewed- declines narcotics after surgery I have reviewed and updated past medical and surgical history, medications and allergies [facility] Nurse Visit (FAMPWS) -------- BESSIE SOLOMON ([id number]) 1985 F Date Time Provider Department 02/17/25 3:45 PM [facility] During your visit today, we recorded the following information about you: JOSSIE GALVEZ 02/17/2025 3:40 PM Signed Patient presents for Hepatitis B vaccine. Denies any problems at this time. Tolerated injection well. Jossie Galvez LPN Allergies As of Date: 02/17/2025 Noted Allergy Reaction CLINDAMYCIN 05/09/2010 2 - Rash 8 - GI Upset SEPTRA (SULFAMETHOXAZOLE-TRIMET HO*05/09/2010 2 - Rash 8 - GI Upset Date Reviewed: 01/29/2025 Reviewed by: Irma Aguilar LPN - Fully Assessed Reason for Visit: Imm/Inj [58] Primary Visit Diagnosis:Encounter for immunization [Z23] Prescriptions as of 02/17/2025 - tezepelumab-ekko (TEZSPIRE) 210 mg/1.91 mL (110 mg/mL) pen injector Inject 210 mg subcutaneously every 4 weeks. - albuterol (PROVENTIL) 2.5 mg /3 mL (0.083 %) nebulizer solution Use 3 mL via nebulizer every 4 hours as needed for wheezing/shortness of breath. - albuterol HFA (PROVENTIL HFA, VENTOLIN HFA) 90 mcg/actuation inhaler Inhale 2 Puffs as instructed every 4 hours as needed for wheezing/shortness of breath. - methocarbamol (ROBAXIN) 500 mg tablet Take 1-2 tablets at bedtime as needed for pain or muscle spasms - biotin 5 mg tab Take 5 mg by mouth once daily. - B.animalis,bifid,infanti s,long (PROBIOTIC 4X ORAL) Take by mouth. - fluticasone-salmeterol HFA (ADVAIR HFA) 230-21 mcg/actuation inhaler Inhale 2 Puffs as instructed two times a day. - fluticasone (FLONASE) 50 mcg/actuation nasal spray Use 2 Sprays in each nostril once daily. - montelukast (SINGULAIR) 10 mg tablet TAKE 1 TABLET BY MOUTH DAILY AT BEDTIME - azelastine 0.1% nasal spray Use 2 Sprays in each nostril two times a day as needed. - ondansetron orally disintegrating (ZOFRAN ODT) 4 mg disintegrating tablet Take 1 tablet by mouth every 8 hours as needed for nausea/vomiting. - PREDNISONE ORAL Take by mouth as needed. Burst - fexofenadine (GM) 180 mg tablet Take 180 mg by mouth once daily as needed. - cetirizine (ZYRTEC) 10 mg tablet Take 10 mg by mouth once daily. Problem List As Of Date 02/17/2025 Noted Resolved Irritable bowel syndrome with diarrhea [K58.0] 07/19/2010 Chest pain [R07.9] 04/19/2021 12/04/2023 SOB (shortness of breath) [R06.02] 04/19/2021 Essential hypertension, benign [I10] 04/19/2021 12/04/2023 Stress incontinence in female [N39.3] 11/10/2021 Menorrhagia with regular cycle [N92.0] 11/10/2021 Dysmenorrhea [N94.6] 11/10/2021 Cervical polyp [N84.1] 11/10/2021 Severe persistent asthma without complication [*05/31/2022 Seasonal allergic rhinitis due to pollen [J30.1]05/31/2022 Chronic rhinitis [J31.0] 05/31/2022 Epigastric pain [R10.13] 07/23/2023 Nausea [R11.0] 07/23/2023 Rectal bleeding [K62.5] 07/23/2023 Acetabular labrum tear, unspecified laterality,*09/14/2023 07/18/2024 Acetabular labrum tear, left, initial encounter*09/14/2023 07/18/2024 Tear of right acetabular labrum [S73.191A] 12/14/2023 07/18/2024 Acetabular labrum tear, left, subsequent encoun*10/17/2024 Radiculopathy, lumbar region [M54.16] 10/17/2024 Encounter Status:Closed by JOSSIE GALVEZ on 02/17/25 Normal [facility] CNOVon 01-29-2025 CNOV Office Visit (OBGYWM ) -------- BESSIE SOLOMON ([id number]) 1985 F Date Time Provider Department 01/29/25 2:30 PM AL KABA OBGYWM During your visit today, we recorded the following information about you: Blood pressure Weight Last Period 132/80 88 kg 01/23/25 Al Kaba MD 01/29/2025 3:22 PM Signed Sap Senior Developer: declined Subjective The patient is a 39-year-old female with a history of adenomyosis and fibroids presenting for evaluation of pelvic pain and abnormal uterine bleeding. Pelvic Pain and Abnormal Uterine Bleeding - Reports experiencing pain and bleeding outside of her menstrual periods, which became particularly severe in October, occurring every other week. - Underwent an ultrasound, which suggested adenomyosis and revealed a couple of small fibroids, one of which is possibly impinging on the uterine lining. - Endometrial biopsy was performed, results were normal. - Has not tried any hormonal treatments and expresses a preference against hormonal interventions, stating, I'm not a control girl. - Has two children and is not planning to have more; her partner has undergone a vasectomy. - Has not had any abnormal Pap smears. - Reports dyspareunia, suspecting it may be related to polyps. Urinary Symptoms - Reports suboptimal bladder function, wondering if it could be related to uterine pressure on the bladder. - Notes that changing positions sometimes improves urinary flow. Surgical History - Two vaginal deliveries. - Cholecystectomy. - Laparoscopy and DANDC in 2008, during which varicose veins of the uterus were noted. - No history of pelvic infections such as gonorrhea or chlamydia. - No significant adhesions reported during previous surgeries. Infertility History - History of suspected endometriosis and infertility prior to having children- no comment on endometriosis or adhesions on subsequent - Underwent hysterosalpingography, which showed tubal blockage. - Conceived naturally just before scheduled in vitro fertilization (IVF) consultation. Genitourinary: (+) abnormal uterine bleeding, (+) pelvic pain, (+) dyspareunia, (+) urinary changes Objective Blood pressure 132/80, weight 88 kg (194 lb), last menstrual period 01/23/2025. General: No acute distress. : Uterus mobile, limited vaginal space, uterine tenderness on bimanual exam. Imaging: - Pelvic Ultrasound: Multiple fibroids, including one impinging on the uterine cavity. Findings suggest adenomyosis. - Hysterosalpingogram: No tubal patency observed. Tests: - Endometrial Biopsy: Negative for malignancy; possible polypoid tissue noted. - (2008) Laparoscopy and DANDC: - Varicose uterine veins identified - No endometriosis found 1. Menorrhagia with irregular cycle (N92.1) 2. Pelvic pain in female (R10.2) 3. Adenomyosis (N80.03) 4. Polyp of corpus uteri (N84.0) 5. Intramural and submucous leiomyoma of uterus (D25.1) - Ultrasound revealed small fibroids, one potentially impacting the endometrial lining, and endometrial biopsy indicated polypoid tissue. - Discussed conservative management options including hysteroscopy, DANDC, and myomectomy to resect fibroids and polyps, with potential placement of a Mirena IUD or hormonal therapy post-procedure. - Educated on adenomyosis, explaining that it involves endometrial tissue implanting into the myometrium, which may continue to cause menorrhagia and pelvic pain even after conservative treatments. - Advised against endometrial ablation due to high failure rates in adenomyosis patients not near menopause. - Patient has not tried hormonal therapies and prefers to avoid them. - Discussed total laparoscopic hysterectomy, including removal of the uterus, cervix, and fallopian tubes while preserving the ovaries to maintain hormonal balance. - Explained surgical risks: infection, bleeding, injury to pelvic structures (bladder, bowel, vessels, ureters) with less than 1% incidence. - Informed about postoperative recovery: 2-6 weeks depending on activity level, with restrictions on lifting, sexual activity, and use of tampons or douching until cleared at 6 weeks. - Patient understands and agrees with the plan for hysterectomy; scheduling to be arranged with potential dates in February or March. - Preoperative visit to be scheduled to discuss surgical details and obtain consent. Attestation Recording using C[employer]mon software for draft documentation of the visit was discussed with the patient/authorized medical representative; all questions welcomed and answered. Patient/authorized medical representative agreed to proceed Medical Decision Making: Problems: Moderate: New problem with uncertain prognosis Risk: High: Decision on elective major surgery w/ risk factors Medical Decision Making Level: 4 - Moderate MD Yris Talamantes (more content not included)... Normal [facility] CNOVon 01-23-2025 CNOV Office Visit (OBGYWM ) -------- BESSIE SOLOMON ([id number]) 1985 F Date Time Provider Department 01/23/25 9:30 AM LELIA NOVAK OBGYWM During your visit today, we recorded the following information about you: Blood pressure Weight 118/76 88.5 kg Lelia Novak APRN.CNM 01/23/2025 11:02 AM Signed Bessie is a 39 year old Female who presents today for an endometrial biopsy for irregular, heavy, periods and AUB test: negative UNIVERSAL PROTOCOL / SAFETY CHECKLIST Procedure to be Performed: Endometrial Biopsy Sign In: A Moment of CARE was completed. Appropriate PPE (Personal Protective Equipment) worn by all providers involved with the procedure. Special equipment not required. Patient/Surrogate Stated/Verified: Patient name, Date of , Relevant allergies, and The intended procedure Time Out: Relevant labs, photos, and/or imaging studies have been reviewed. Intended patient and procedure match the source document(s) (e.g. consent, HANDP, associated studies [imaging, pathology]) are not applicable. Consent obtained and matches the intended procedure. Yes. Correct side/site is not applicable. Medications required for this procedure are verified. Fire risk assessed and is not applicable. Implants: are not applicable. Sign Out: Specimens are all correctly labeled and sent. All instruments, equipment, possible retained foreign bodies are accounted for. Yes. The post-procedure plan of care has been communicated to the patient or surrogate. PROCEDURE: EXTERNAL GENITALIA: Normal in appearance without lesions VAGINA: large cervical polyps visualized BIOPSY: Speculum placed into the vagina with excellent visualization of the cervix. Cervix cleaned with betadine. Anterior lip of cervix grasped with single toothed tenaculum. Uterus sounded to 9 cm. Pipelle inserted into the uterus without difficulty and endometrial biopsy obtained. Specimen labeled and sent to pathology. Hemostasis achieved. Procedure Summary: Patient tolerated procedure well. ASSESSMENT: heavy and irregular menses PLAN: Specimens labeled and sent to Pathology. Will notify patient of results in 1-2 weeks. Post-procedure instructions reviewed and written material given to the patient. - Reviewed results of pelvic US again with patient. Patient aware of uterine fibroid and adenomyosis diagnosis. May be interested in partial hysterectomy. - Will follow up after results return Lelia Novak APRN.Rayray Hoffmann MA 01/23/2025 9:26 AM Signed YOUR RECOVERY After your biopsy you may have: Vaginal bleeding (less than a normal menstrual period) Mild cramping Do NOT put anything in the vagina for 1 week after your endometrial biopsy. This includes: tampons douches and refraining from having sexual intercourse If you have any discomfort, you may take an over the counter pain medication (motrin, advil, ibuprofen, tylenol, etc). If this does not relieve your discomfort, contact the office. It is okay to wear a sanitary pad until the discharge and spotting stops. RISKS Although problems seldom occur with endometrial biopsies, there can be some complications. You may feel faint during and shortly after the procedure as well as have some bleeding after the procedure. There is also a risk of infection after the procedure. These complications are rare and can be easily treated. You should contact you doctor is you have any of the following: Heavy bleeding (more than your normal period) Bleeding with clots Severe abdominal pain Fever (more than 100.4F) Foul smelling vaginal discharge RESULTS We will have the results of your biopsy in 1-2 weeks. If you do not hear the results of your biopsy after 2 weeks, please contact the office for the results. If you have any additional questions or concerns please do not hesitate to contact the office. Referring Provider: LELIA NOVAK [[id number]] Allergies As of Date: 01/23/2025 Noted Allergy Reaction CLINDAMYCIN 05/09/2010 2 - Rash 8 - GI Upset SEPTRA (SULFAMETHOXAZOLE-TRIMET HO*05/09/2010 2 - Rash 8 - GI Upset Date Reviewed: 01/23/2025 Reviewed by: Rayray Carnes MA - Fully Assessed Reason for Visit: Endometrial Biopsy [7501] Primary Visit Diagnosis:Irregular menstruation [N92.6] Other Visit Diagnoses:Excessive bleeding in premenopausal period [N92.4] Adenomyosis [N80.03] Uterine leiomyoma, unspecified location [D25.9] Order(s):ENDOMETRIAL BIOPSY [[id number]] Order #: [id number] SURGICAL PATHOLOGY [[id number]] Order #: [id number]. #:[id number] UA DIP,URINE HCG (POC) [[id number]] Order #: [id number] Prescriptions as of 01/23/2025 - tezepelumab-ekko (TEZSPIRE) 210 mg/1.91 mL (110 mg/mL) pen injector Inject 210 mg subcutaneously every 4 weeks. - albuterol (PROVENTIL) 2.5 mg /3 mL (0.083 %) nebulizer solution Use 3 mL via nebulizer every (more content not included)... Normal [facility] Pathology biopsy report Terrence (Tiss)on 01-23-2025 AP DISCLAIMER Normal [facility] Comment on above: Order Comment: Speci men Type: BLOOD SPECIMEN Ordering Facility: [facility] Address: [address] [place] [address] Result Comment: Lillian meehan Developed Test (LDT) Disclaimer: Performance characteristics of immunohistochemical, immunofluorescent, and chromogenic in-situ hybridization tests have been determined by the performing laboratory within [facility]'s [facility] Pathology and Laboratory Medicine Department ([facility], [facility], [facility], [facility], [facility], [facility], or [facility]) in a manner consistent with CLIA requirements. One or more of these tests may not have been cleared or approved by the FDA. [facility] is regulated under CLIA as qualified to perform high-complexity testing. These tests are used for clinical purposes. These should not be regarded as investigational or for research. Positive and negative controls stain appropriately. Performed By: #### 5 213-4 #### [facility] CLIA [id number] [address] [place] [address] [place] CASE REPORT Normal [facility] Comment on above: Order Comment: Speci men Type: BLOOD SPECIMEN Ordering Facility: [facility] Address: [address] [place] [address] Result Comment: Surg [facility] Pathology Report Case: [id number] Authorizing Provider: Lelia Novak APRN.CNM Collected: 01/23/2025 10:10 AM Ordering Location: OB/Gynecology Received: 01/23/2025 11:56 AM Pathologist: Sydney Rowan MD Specimen: Endometrium, Biopsy Performed By: #### 5 213-4 #### [facility] CLIA [id number] [address] [place] [address] [place] CLINICAL HISTORY irregular menses Normal [facility] Comment on above: Order Comment: Speci men Type: BLOOD SPECIMEN Ordering Facility: [facility] Address: [address] [place] [address] Performed By: #### 5 213-4 #### [facility] CLIA [id number] [address] [place] [address] [place] FINAL DIAGNOSIS Normal [facility] Comment on above: Order Comment: Speci men Type: BLOOD SPECIMEN Ordering Facility: [facility] Address: [address] [place] [address] Result Comment: Endo metrium, biopsy: - Secretory endometrium. - Polypoid segments of benign endocervical tissue. MJM 01/26/2025 at 1448 EDT Performed By: #### 5 213-4 #### [facility] CLIA [id number] [address] [place] [address] [place] FINAL PERFORMING LAB Normal [facility] Comment on above: Order Comment: Speci men Type: BLOOD SPECIMEN Ordering Facility: [facility] Address: [address] [place] [address] Result Comment: Diag nostic interpretation performed at: [facility], [address] [place] [address] CLIA# [id number] Telecommunications Administrator: Sydney Rowan MD Performed By: #### 5 213-4 #### [facility] CLIA [id number] [address] [place] [address] [place] GROSS DESCRIPTION Normal [facility] Comment on above: Order Comment: Speci men Type: BLOOD SPECIMEN Ordering Facility: [facility] Address: [address] [place] [address] Result Comment: A. E ndometrium, Biopsy Received in formalin are multiple red-brown, soft feathery segments of tissue aggregating to 2.3 x 2.0 x 0.4 cm. Totally submitted in one cassette. VY January 23, 2025 4:45 PM Gross examination performed at [facility], [address] [place] [address] Performed By: #### 5 213-4 #### [facility] CLIA [id number] [address] [place] [address] [place] UA DIP,URINE HCG (POC)on Beta HCG ( test) Ql (U) Negative Negative [facility] Comment on above: Location:[facility], [address] [place] [address], [place], [address] Clinical Nurse Reviewer (POCT) Internal QC OK [facility] Location:[facility], [address] [facility], [place], [place], [address] [place] [address] POINT OF CARE [facility] TSH SerPl-aCncon 01-13-2025 TSH Qn 1.580 m[IU]/L Normal 0.270-4.200 [facility] Comment on above: Order Comment: Sabrina prater Type: BLOOD SPECIMEN Ordering Facility: [facility] Address: [address] [place] [address] Result Comment: If t he patient is , TSH reference range varies by gestational period: First Trimester (weeks 9-12): 0.180-2.990 mIU/L Second Trimester: 0.110-3.980 mIU/L Third Trimester: 0.480-4.710 mIU/L Warren Rodarte et al. A Practical Approach for the Verifications and Determination of Site- and Trimester-Specific Reference Intervals for Thyroid Function tests in . Thyroid, 2019:29:3:412-420. Henri Clements, et al. 2017 Guidelines of the [place] [employer] for the Diagnosis and Management of Thyroid Disease during and the . Thyroid, 2017:27:3:315-389. Performed By: #### 5 213-4 #### [facility] CLIA [id number] [address] [place] [address] [place] CBC panel Auto (Bld)on 01-06 Erythrocyte distribution width (RBC) [Ratio] 11.9 % Normal 11.5-15.0 [facility] Comment on above: Order Comment: Sabrina prater Type: BLOOD SPECIMEN Ordering Facility: [facility] Address: [address] [place] [address] Performed By: #### 5 8410-2 #### [facility] CLIA [id number] [address] [place] [address] [place] Hematocrit (Bld) [Volume fraction] 36.6 % Normal 36.0-46.0 [facility] Comment on above: Order Comment: Speci men Type: BLOOD SPECIMEN Ordering Facility: [facility] Address: [address] [place], [place] [address] Performed By: #### 5 8410-2 #### [id number] [address] [place] [address] [place] Hemoglobin (Bld) [Mass/Vol] 12.5 g/dL Normal 11.5-15.5 [facility] Comment on above: Order Comment: Speci men Type: BLOOD SPECIMEN Ordering Facility: [facility] Address: [address] [place] [address] Performed By: #### 5 8410-2 #### [facility] [id number] [address] [place] [address] [place] MCH (RBC) [Entitic mass] 31.4 pg Normal 26.0-34.0 [facility] Comment on above: Order Comment: Speci men Type: BLOOD SPECIMEN Ordering Facility: [facility] Address: [address] [place] [address] Performed By: #### 5 8410-2 #### [facility] [id number] [address] [place] [address] [place] MCHC (RBC) [Mass/Vol] 34.2 g/dL Normal 30.5-36.0 [facility] Comment on above: Order Comment: Speci men Type: BLOOD SPECIMEN Ordering Facility: [facility] Address: [address] [place] [address] Performed By: #### 5 8410-2 #### [facility] [id number] [address] [place] [address] [place] MCV (RBC) [Entitic vol] 92.0 fL Normal 80.0-100.0 [facility] Comment on above: Order Comment: Speci men Type: BLOOD SPECIMEN Ordering Facility: [facility] Address: [address] [place] [address] Performed By: #### 5 8410-2 #### [facility] CLIA [id number] [address] [place] [address] [place] Nucleated RBC (Bld) [#/Vol] 10*3/uL Normal <0.01 [facility] Comment on above: Order Comment: Speci men Type: BLOOD SPECIMEN Ordering Facility: [facility] Address: [address] [place] [address] Performed By: #### 5 8410-2 #### [facility] CLIA [id number] [address] [place] [address] [place] Platelet mean volume (Bld) [Entitic vol] 10.3 fL Normal 9.0-12.7 [facility] Comment on above: Order Comment: Speci men Type: BLOOD SPECIMEN Ordering Facility: [facility] Address: [address] [place] [address] Performed By: #### 5 8410-2 #### [facility] CLIA [id number] [address] [place] [address] [place] Platelets (Bld) [#/Vol] 201 10*3/uL Normal 150-400 [facility] Comment on above: Order Comment: Speci men Type: BLOOD SPECIMEN Ordering Facility: [facility] Address: [address] [place] [address] Performed By: #### 5 8410-2 #### [facility] CLIA [id number] [address] [place] [address] [place] RBC (Bld) [#/Vol] 3.98 10*6/uL Normal 3.90-5.20 [facility] Comment on above: Order Comment: Speci men Type: BLOOD SPECIMEN Ordering Facility: [facility] Address: [address] [place] [address] Performed By: #### 5 8410-2 #### [facility] CLIA [id number] [address] [place] [address] [place] WBC (Bld) [#/Vol] 6.49 10*3/uL Normal 3.70-11.00 [facility] Comment on above: Order Comment: Speci men Type: BLOOD SPECIMEN Ordering Facility: [facility] Address: [address] [place] [address] Performed By: #### 5 8410-2 #### [facility] CLIA [id number] [address] [place], [place] [id number] [place] [address] [place] CNOVon 01-06-2025 CNOV Office Visit (PULMWS ) -------- BESSIE SOLOMON ([id number]) 1985 F Date Time Provider Department 01/06/25 3:00 PM ARIELA TALLEY PULMWS During your visit today, we recorded the following information about you: Pulse Respiration Weight 60/minute 17/minute 90.3 kg Ariela Talley, KALEIGH.WAREHOUSE REPRESENTATIVE 01/06/2025 3:23 PM Signed Pulmonary Medicine Patients name: Bessie Solomon PCP: Diane Bazzi MD CC: follow-up Asthma HPI: Bessie Solomon is a 39 year old female non-smoker with PMH significant for severe asthma. Previously intolerant of LAMA with severe LE cramping. Current therapy consists of Advair, Albuterol and Tezspire. Also uses Singulair, Zyrtec and Nasal spray. MONIKA 06/2024 with stable symptoms. PFT and nitric oxide normal. She was seen in [facility] on 09/[facility] with cough, fever and runny nose and tested positive for RSV. Treated with Prednisone. Symptoms lasted for a month before resolving. Otherwise, she has done well since her last visit.Today, patient reports occasional cough with yellow sputum. No hemoptysis. Denies wheezing, chest tightness, or dyspnea with exertion or at rest. Denies any current fevers, chills, or night sweats. No recent hospitalizations or ED visits or upper respiratory infections. Has not used Albuterol since she was sick in September. PAST MEDICAL HISTORY Diagnosis Date Acetabular labrum tear, left, initial encounter 09/14/2023 Acetabular labrum tear, unspecified laterality, subsequent encounter 09/14/2023 Asthma (HCC) Constipation Diarrhea Dyspnea on exertion History of echocardiogram 05/13/2021 EF 60-65% RV systolic pressure 25mmHg R atrial pressure 3mmHg History of stress test 05/13/2021 no ischemic electrocardiogrpahic changes noted pt developed chest pressure ehich resolved in recovery phase average exercise capacity for age baseline htn with a normal BP response to exercise Tear of right acetabular labrum 12/14/2023 Allergies: Clindamycin Rash, GI Upset Septra [Sulfamethox* Rash, GI Upset Medication List Accurate as of January 06, 2025 12:58 PM. If you have any questions, ask your nurse or doctor. CONTINUE taking these medications * albuterol HFA 90 mcg/actuation inhaler Commonly known as: VENTOLIN HFA Inhale 2 Puffs as instructed every 4 hours as needed for wheezing/shortness of breath (and before sexertion / exercise). * albuterol 2.5 mg /3 mL (0.083 %) nebulizer solution Commonly known as: PROVENTIL Use 3 mL via nebulizer every 4 hours as needed for wheezing/shortness of breath. * albuterol HFA 90 mcg/actuation inhaler Commonly known as: PROVENTIL HFA, VENTOLIN HFA Inhale 2 Puffs as instructed every 4 hours as needed for wheezing/shortness of breath. azelastine 0.1% nasal spray Use 2 Sprays in each nostril two times a day as needed. biotin 5 mg Tab cetirizine 10 mg tablet Commonly known as: ZYRTEC fexofenadine 180 mg tablet Commonly known as: GM fluticasone 50 mcg/actuation nasal spray Commonly known as: FLONASE Use 2 Sprays in each nostril once daily. fluticasone-salmeterol HFA 230-21 mcg/actuation inhaler Commonly known as: ADVAIR HFA Inhale 2 Puffs as instructed two times a day. methocarbamol 500 mg tablet Commonly known as: ROBAXIN Take 1-2 tablets at bedtime as needed for pain or muscle spasms montelukast 10 mg tablet Commonly known as: SINGULAIR TAKE 1 TABLET BY MOUTH DAILY AT BEDTIME ondansetron orally disintegrating 4 mg disintegrating tablet Commonly known as: ZOFRAN ODT Take 1 tablet by mouth every 8 hours as needed for nausea/vomiting. PREDNISONE ORAL PROBIOTIC 4X ORAL TEZSPIRE 210 mg/1.91 mL (110 mg/mL) pen injector Generic drug: tezepelumab-ekko Inject 210 mg subcutaneously every 4 weeks. * This list has 3 medication(s) that are the same as other medications prescribed for you. Read the directions carefully, and ask your doctor or other care provider to review them with you. DATA: I personally reviewed and analyzed all labs, radiographs and available pulmonary function testing PFT: 06/2024 Spirometry is normal. CXR: Last XR Chest - Impression Only XR CHEST 2V FRONTAL/LAT Exam End: 09/29/2024 7:10 PM (Final result) Impression: IMPRESSION: No acute radiographic abnormality. ... IMMUNIZATIONS Prevnar - xx Pneumovax 23 - xx Influenza - 05/2024 COVID-19 - xx RSV- xx Review of Systems Constitutional: Negative for activity change, appetite change, fatigue and unexpected weight change. HENT: Positive for congestion (chronic). Negative for mouth sores, postnasal drip and sinus pain. Respiratory: Positive for cough. Negative for chest tightness, shortness of breath and wheezing. Cardiovascular: Negative for chest pain, palpitations and leg swelling. Allergic/Immunologic: Negative for environmental allergies. Neurological: Negative for dizziness, weakness and li (more content not included)... Normal [facility] FEMALE PELVIS TRANSVAGon 01-06-2025 FEMALE PELVIS TRANSVAG * * *Final Report* * * DATE OF EXAM: Jan 06 2025 8:08AM WRU 1060 - US FEMALE PELVIS TRANSVAG / PROCEDURE REASON: Irregular periods/menstrual cycles * * * * Physician Interpretation * * * * EXAMINATION: TRANSVAGINAL AND LIMITED TRANSABDOMINAL FEMALE PELVIC ULTRASOUND CLINICAL HISTORY: Irregular menstrual cycles. TECHNIQUE: Sonography of the pelvis was performed by transvaginal and transabdominal (limited) techniques. Images were obtained and stored in a permanent archive. MQ: [id number] COMPARISON: Pelvic ultrasound from 01/12/2023 RESULT: Uterus: -Size: 9.7 x 5.0 x 6.1 cm -Orientation: Anteverted -Endometrial echo complex: Endometrium measures 0.8 cm in thickness -Cervix: Unremarkable. -Adenomyosis assessment: Heterogeneous echotexture of the myometrium with globular morphology. -Fibroids: 1.2 x 0.7 x 0.9 cm intramural fibroid along the anterior mid uterine body. 1.8 x 1.0 x 1.2 cm fibroid along the left mid uterine segment which abuts the endometrium. Right Ovary: Right ovary measures 3.1 x 2.0 x 2.2 cm and is normal in appearance. Within the right ovary, there is a 1.6 x 1.9 x 1.4 cm cyst with peripheral areas of echogenicity. This may represent a hemorrhagic ovarian cyst with retractile clot. However, this is difficult to confirm on ultrasound. Left Ovary: Left ovary measures 4.0 x 1.5 x 3.1 cm and is normal in appearance. Free Fluid: No abnormal free fluid is present. IMPRESSION: 1. Uterine fibroids as described above. This includes a 1.8 cm fibroid along the left mid uterine body which abuts the endometrium. 2. Heterogeneous echotexture of the myometrium. Although nonspecific, this can be seen in the setting of adenomyosis. 3. Within the right ovary, there is a 1.6 x 1.9 x 1.4 cm cyst with peripheral areas of echogenicity. This may represent a hemorrhagic ovarian cyst with retractile clot. However, this is difficult to confirm on ultrasound. Would advise a follow-up pelvic ultrasound in 3 months to reassess the right ovarian cyst. ACTIONABLE RESULT: FOLLOW-UP Acuity: Actionable Findings: Female reproductive tract (pelvis, adnexa) Routing code: WH_1 Recommendation: US FEMALE PELVIS NON-OB NON TORSION ([id number]) Time Frame: 1-3 months COMMUNICATION: Results will be communicated with the ordering provider via Anchor™ staff message or phone message by Imaging Support Services within 2 business days of report finalization. --END OF FINDING-- Algorithms for management of incidental imaging findings can be found on the [facility] Intranet Sharepoint site at: [email or web address] [email or web address] Condominium Property Manager: KELI Transcribe Date/Time: Jan 07 2025 8:55P Dictated by : HUNTER BENTLEY MD This examination was interpreted and the report reviewed and electronically signed by: HUNTER BENTLEY MD on Jan 07 2025 9:00PM EST [id number] [id number] Invalid Interpretation Code [facility] CNOVon 01-02-2025 CNOV Office Visit (OBGYWM ) -------- BESSIE SOLOMON ([id number]) 1985 F Date Time Provider Department 01/02/25 1:45 PM LELIA NOVAK OBAMBIKA During your visit today, we recorded the following information about you: Blood pressure Weight Last Period 116/74 90.3 kg 12/24/24 Lelia Novak APRN.CNM 01/02/2025 1:57 PM Signed Bessie Solomon is a 39 year old female who presents for problem visit for irregular periods. HPI: Cycles typically every 28-30 days lasting 5 days. In October had period then 1 week later had another bout of bleeding for 4 days. She has continued to have some type of bleeding every other week. Denies any pelvic pain. History of uterine fibroid. Sexually active with partner who has vasectomy. Reports occasional pain and bleeding with intercourse. OB History Gravida2 Para2 Term2 Preterm0 AB0 Living2 SAB0 IAB0 Ectopic0 Multiple0 Live Births0 Advanced Practice Rn History LMP: 12/24/2024 (Exact Date), Having periods Age at Menarche: Age at First : Age at Menopause: Advanced Practice Rn History Comments: Sexual Activity: Yes; Male Contraception: Vasectomy REVIEW OF SYSTEMS Abdomen: No bloating, early satiety, indigestion, or increased flatulence. No abdominal pain, nausea, vomiting, diarrhea, or constipation. Bladder: No dysuria, gross hematuria, urinary frequency, urinary urgency, or incontinence. Breast: No breast lumps, nipple d/c, overlying skin changes, redness or skin retraction. Expanded ROS: N/A Allergies and current medication updated:Yes SENSITIVE EXAM: Sensitive exam not performed. EXAM: BP 116/74 Wt 199 lb (90.3kg) LMP 12/24/2024 GENERAL: pleasant, female in no apparent distress HEENT: Normocephalic and atraumatic NECK: Supple and full range of motion DERMATOLOGY: Normal and without lesions BREAST: deferred CHEST: Normal inspiratory effort ABDOMEN: Deferred PELVIC: deferred BIMANUAL: deferred NEURO: alert and oriented x3,exam grossly non-focal EXTREMITIES: normal ASSESSMENT AND PLAN: Assessment AND Plan Irregular periods/menstrual cycles Orders: US FEMALE PELVIS TRANSVAG; Future COMPLETE BLOOD COUNT; Future History of uterine fibroid Menorrhagia with irregular cycle Dyspareunia in female - Offered Aygestin PO taper- patient declined at this time - Pelvic US - CBC, TSH - Discussed EMB in the future - Will follow up with patient after results and discuss plan of care MARCO Kruger APRN.CNM Allergies As of Date: 01/02/2025 Noted Allergy Reaction CLINDAMYCIN 05/09/2010 2 - Rash 8 - GI Upset SEPTRA (SULFAMETHOXAZOLE-TRIMET HO*05/09/2010 2 - Rash 8 - GI Upset Date Reviewed: 01/02/2025 Reviewed by: Rayray Carnes MA - Fully Assessed Reason for Visit: Menstrual Problem [67] Cmt: Frequent periods Primary Visit Diagnosis:Irregular periods/menstrual cycles [N92.6] Other Visit Diagnoses:History of uterine fibroid [Z86.018] Menorrhagia with irregular cycle [N92.1] Dyspareunia in female [N94.10] Order(s):US FEMALE PELVIS TRANSVAG [[id number]] Order #: [id number] FUTURE COMPLETE BLOOD COUNT [SQCBC] Order #: [id number] FUTURE Prescriptions as of 01/02/2025 - tezepelumab-ekko (TEZSPIRE) 210 mg/1.91 mL (110 mg/mL) pen injector Inject 210 mg subcutaneously every 4 weeks. - albuterol (PROVENTIL) 2.5 mg /3 mL (0.083 %) nebulizer solution Use 3 mL via nebulizer every 4 hours as needed for wheezing/shortness of breath. - albuterol HFA (PROVENTIL HFA, VENTOLIN HFA) 90 mcg/actuation inhaler Inhale 2 Puffs as instructed every 4 hours as needed for wheezing/shortness of breath. - methocarbamol (ROBAXIN) 500 mg tablet Take 1-2 tablets at bedtime as needed for pain or muscle spasms - biotin 5 mg tab Take 5 mg by mouth once daily. - B.animalis,bifid,infanti s,long (PROBIOTIC 4X ORAL) Take by mouth. - fluticasone-salmeterol HFA (ADVAIR HFA) 230-21 mcg/actuation inhaler Inhale 2 Puffs as instructed two times a day. - albuterol HFA (VENTOLIN HFA) 90 mcg/actuation inhaler Inhale 2 Puffs as instructed every 4 hours as needed for wheezing/shortness of breath (and before sexertion / exercise). - fluticasone (FLONASE) 50 mcg/actuation nasal spray Use 2 Sprays in each nostril once daily. - montelukast (SINGULAIR) 10 mg tablet TAKE 1 TABLET BY MOUTH DAILY AT BEDTIME - azelastine 0.1% nasal spray Use 2 Sprays in each nostril two times a day as needed. - ondansetron orally disintegrating (ZOFRAN ODT) 4 mg disintegrating tablet Take 1 tablet by mouth every 8 hours as needed for nausea/vomiting. - PREDNISONE ORAL Take by mouth as needed. Burst - fexofenadine (GM) 180 mg tablet Take 180 mg by mouth once daily as needed. - cetirizine (ZYRTEC) 10 mg tablet Take 10 mg by mouth once daily. Problem List As Of Date 01/02/2025 Noted Resolved Irritable bowel syndrome with diarrhea [K58.0] 07/19/2010 Chest pain [R07.9] (more content not included)... Normal [facility] CNTHERAPYon 12-09-2024 CNTHERAPY OT/PT/Speech Visit (PTWS) -------- BESSIE SOLOMON ([id number]) 1985 F Date Time Provider Department 12/09/24 6:00 PM JAJA LEONARD PTDIMITRY Date Time Provider Department [place] 12/09/2024 6:00 PM [id number] LEONARD PTDIMITRY Álvarez Reason for Visit: PT Discharge [752] Primary Visit Diagnosis:Acetabular labrum tear, left, subsequent encounter [S73.192D] Other Visit Diagnosis:Radiculopathy, lumbar region [M54.16] Allergies As of Date: 12/09/2024 Noted Allergy Reaction CLINDAMYCIN 05/09/2010 2 - Rash 8 - GI Upset SEPTRA (SULFAMETHOXAZOLE-TRIMET HO*05/09/2010 2 - Rash 8 - GI Upset Date Reviewed: 10/24/2024 Reviewed by: Margareth Steel MA - Fully Assessed Prescriptions as of 12/09/2024 - tezepelumab-ekko (TEZSPIRE) 210 mg/1.91 mL (110 mg/mL) pen injector Inject 210 mg subcutaneously every 4 weeks. - albuterol (PROVENTIL) 2.5 mg /3 mL (0.083 %) nebulizer solution Use 3 mL via nebulizer every 4 hours as needed for wheezing/shortness of breath. - albuterol HFA (PROVENTIL HFA, VENTOLIN HFA) 90 mcg/actuation inhaler Inhale 2 Puffs as instructed every 4 hours as needed for wheezing/shortness of breath. - benzonatate (TESSALON PERLE) 100 mg capsule Take 1 capsule by mouth three times a day as needed for cough for up to 12 doses. - methocarbamol (ROBAXIN) 500 mg tablet Take 1-2 tablets at bedtime as needed for pain or muscle spasms - biotin 5 mg tab Take 5 mg by mouth once daily. - B.animalis,bifid,infanti s,long (PROBIOTIC 4X ORAL) Take by mouth. - famotidine (PEPCID) 20 mg tablet Take 1 tablet by mouth daily at bedtime. - fluticasone-salmeterol HFA (ADVAIR HFA) 230-21 mcg/actuation inhaler Inhale 2 Puffs as instructed two times a day. - albuterol HFA (VENTOLIN HFA) 90 mcg/actuation inhaler Inhale 2 Puffs as instructed every 4 hours as needed for wheezing/shortness of breath (and before sexertion / exercise). - fluticasone (FLONASE) 50 mcg/actuation nasal spray Use 2 Sprays in each nostril once daily. - fluticasone-salmeterol HFA (ADVAIR) 230-21 mcg/actuation inhaler Inhale 2 Puffs as instructed two times a day. - montelukast (SINGULAIR) 10 mg tablet TAKE 1 TABLET BY MOUTH DAILY AT BEDTIME - azelastine 0.1% nasal spray Use 2 Sprays in each nostril two times a day as needed. - ondansetron orally disintegrating (ZOFRAN ODT) 4 mg disintegrating tablet Take 1 tablet by mouth every 8 hours as needed for nausea/vomiting. - PREDNISONE ORAL Take by mouth as needed. Burst - fexofenadine (GM) 180 mg tablet Take 180 mg by mouth once daily as needed. - cetirizine (ZYRTEC) 10 mg tablet Take 10 mg by mouth once daily. Assistant Portfolio Manager: Addendum Therapy (PT/OT/Speech/Resp) ID: [id number] 12/09/2024 6:12 PM Author: JAJA LEONARD Signed by JAJA LEONARD PT on 12/09/2024 at 6:12 PM * * * This document replaces document [id number] * * * Document text: Program_ID:[id number] Access Code: [email or web address] URL: [email or web address] Date: 12-09-2024 Prepared By: Jaja Leonard Program Notes Exercises - Lying Prone - 2-3 x daily - 7 x weekly - sets - reps - Static Prone on Elbows - 2-3 x daily - 7 x weekly - 2-3 sets - 1 reps - Prone Push Ups on Forearms - 2-3 x daily - 7 x weekly - 2-3 sets - 10 reps - Standing Lumbar Extension - 1 x daily - 7 x weekly - 2-3 sets - 10 reps - Quadruped Hip Abduction and External Rotation - 1 x daily - 7 x weekly - 3 sets - 10 reps - Bird Dog - 1 x daily - 7 x weekly - 1-2 sets - reps Normal [facility] THERAPY NTon 12-09-2024 THERAPY NT HNO ID: [id number] Author: JAJA LEONARD, PT Service: ? Author Type: Physical Therapist Type: Therapy (PT/OT/Speech/Resp) Filed: 12/09/2024 18:12 Note Text: Program_ID:[id number] Access Code: [email or web address] URL: [email or web address] Date: 12-09-2024 Prepared By: Jaja Leonard Program Notes Exercises - Lying Prone - 2-3 x daily - 7 x weekly - sets - reps - Static Prone on Elbows - 2-3 x daily - 7 x weekly - 2-3 sets - 1 reps - Prone Push Ups on Forearms - 2-3 x daily - 7 x weekly - 2-3 sets - 10 reps - Standing Lumbar Extension - 1 x daily - 7 x weekly - 2-3 sets - 10 reps - Quadruped Hip Abduction and External Rotation - 1 x daily - 7 x weekly - 3 sets - 10 reps - Bird Dog - 1 x daily - 7 x weekly - 1-2 sets - reps Normal [facility] CNTHERAPYon 12-02-2024 CNTHERAPY OT/PT/Speech Visit (PTWS) -------- BESSIE SOLOMON ([id number]) 1985 F Date Time Provider Department 12/02/24 6:00 PM JAJA LEONARD PTDIMITRY Date Time Provider Department [place] 12/02/2024 6:00 PM [id number] LEONARD Reason for Visit: Physical Therapy [503] Primary Visit Diagnosis:Acetabular labrum tear, left, subsequent encounter [S73.192D] Other Visit Diagnosis:Radiculopathy, lumbar region [M54.16] Allergies As of Date: 12/02/2024 Noted Allergy Reaction CLINDAMYCIN 05/09/2010 2 - Rash 8 - GI Upset SEPTRA (SULFAMETHOXAZOLE-TRIMET HO*05/09/2010 2 - Rash 8 - GI Upset Date Reviewed: 10/24/2024 Reviewed by: Margareth Steel MA - Fully Assessed Prescriptions as of 12/02/2024 - tezepelumab-ekko (TEZSPIRE) 210 mg/1.91 mL (110 mg/mL) pen injector Inject 210 mg subcutaneously every 4 weeks. - albuterol (PROVENTIL) 2.5 mg /3 mL (0.083 %) nebulizer solution Use 3 mL via nebulizer every 4 hours as needed for wheezing/shortness of breath. - albuterol HFA (PROVENTIL HFA, VENTOLIN HFA) 90 mcg/actuation inhaler Inhale 2 Puffs as instructed every 4 hours as needed for wheezing/shortness of breath. - benzonatate (TESSALON PERLE) 100 mg capsule Take 1 capsule by mouth three times a day as needed for cough for up to 12 doses. - methocarbamol (ROBAXIN) 500 mg tablet Take 1-2 tablets at bedtime as needed for pain or muscle spasms - biotin 5 mg tab Take 5 mg by mouth once daily. - B.animalis,bifid,infanti s,long (PROBIOTIC 4X ORAL) Take by mouth. - famotidine (PEPCID) 20 mg tablet Take 1 tablet by mouth daily at bedtime. - fluticasone-salmeterol HFA (ADVAIR HFA) 230-21 mcg/actuation inhaler Inhale 2 Puffs as instructed two times a day. - albuterol HFA (VENTOLIN HFA) 90 mcg/actuation inhaler Inhale 2 Puffs as instructed every 4 hours as needed for wheezing/shortness of breath (and before sexertion / exercise). - fluticasone (FLONASE) 50 mcg/actuation nasal spray Use 2 Sprays in each nostril once daily. - fluticasone-salmeterol HFA (ADVAIR) 230-21 mcg/actuation inhaler Inhale 2 Puffs as instructed two times a day. - montelukast (SINGULAIR) 10 mg tablet TAKE 1 TABLET BY MOUTH DAILY AT BEDTIME - azelastine 0.1% nasal spray Use 2 Sprays in each nostril two times a day as needed. - ondansetron orally disintegrating (ZOFRAN ODT) 4 mg disintegrating tablet Take 1 tablet by mouth every 8 hours as needed for nausea/vomiting. - PREDNISONE ORAL Take by mouth as needed. Burst - fexofenadine (GM) 180 mg tablet Take 180 mg by mouth once daily as needed. - cetirizine (ZYRTEC) 10 mg tablet Take 10 mg by mouth once daily. Normal [facility] CNTHERAPYon 11-25-2024 CNTHERAPY OT/PT/Speech Visit (PTWS) -------- BESSIE SOLOMON ([id number]) 1985 F Date Time Provider Department 11/25/24 6:00 PM JAJA LEONARD PTWS Date Time Provider Department Center 11/25/2024 6:00 PM [id number] LEONARD PTWS Theresa Álvarez Reason for Visit: Physical Therapy [503] Primary Visit Diagnosis:Acetabular labrum tear, left, subsequent encounter [S73.192D] Other Visit Diagnosis:Radiculopathy, lumbar region [M54.16] Allergies As of Date: 11/25/2024 Noted Allergy Reaction CLINDAMYCIN 05/09/2010 2 - Rash 8 - GI Upset SEPTRA (SULFAMETHOXAZOLE-TRIMET HO*05/09/2010 2 - Rash 8 - GI Upset Date Reviewed: 10/24/2024 Reviewed by: Mragareth Steel MA - Fully Assessed Prescriptions as of 11/25/2024 - tezepelumab-ekko (TEZSPIRE) 210 mg/1.91 mL (110 mg/mL) pen injector Inject 210 mg subcutaneously every 4 weeks. - albuterol (PROVENTIL) 2.5 mg /3 mL (0.083 %) nebulizer solution Use 3 mL via nebulizer every 4 hours as needed for wheezing/shortness of breath. - albuterol HFA (PROVENTIL HFA, VENTOLIN HFA) 90 mcg/actuation inhaler Inhale 2 Puffs as instructed every 4 hours as needed for wheezing/shortness of breath. - benzonatate (TESSALON PERLE) 100 mg capsule Take 1 capsule by mouth three times a day as needed for cough for up to 12 doses. - methocarbamol (ROBAXIN) 500 mg tablet Take 1-2 tablets at bedtime as needed for pain or muscle spasms - biotin 5 mg tab Take 5 mg by mouth once daily. - B.animalis,bifid,infanti s,long (PROBIOTIC 4X ORAL) Take by mouth. - famotidine (PEPCID) 20 mg tablet Take 1 tablet by mouth daily at bedtime. - fluticasone-salmeterol HFA (ADVAIR HFA) 230-21 mcg/actuation inhaler Inhale 2 Puffs as instructed two times a day. - albuterol HFA (VENTOLIN HFA) 90 mcg/actuation inhaler Inhale 2 Puffs as instructed every 4 hours as needed for wheezing/shortness of breath (and before sexertion / exercise). - fluticasone (FLONASE) 50 mcg/actuation nasal spray Use 2 Sprays in each nostril once daily. - fluticasone-salmeterol HFA (ADVAIR) 230-21 mcg/actuation inhaler Inhale 2 Puffs as instructed two times a day. - montelukast (SINGULAIR) 10 mg tablet TAKE 1 TABLET BY MOUTH DAILY AT BEDTIME - azelastine 0.1% nasal spray Use 2 Sprays in each nostril two times a day as needed. - ondansetron orally disintegrating (ZOFRAN ODT) 4 mg disintegrating tablet Take 1 tablet by mouth every 8 hours as needed for nausea/vomiting. - PREDNISONE ORAL Take by mouth as needed. Burst - fexofenadine (GM) 180 mg tablet Take 180 mg by mouth once daily as needed. - cetirizine (ZYRTEC) 10 mg tablet Take 10 mg by mouth once daily. Normal [facility] CNTHERAPYon 11-17-2024 CNTHERAPY OT/PT/Speech Visit (PTWS) -------- BESSIE SOLOMON ([id number]) 1985 F Date Time Provider Department 11/17/24 6:00 PM CLAIR MELENDEZ PTDIMITRY Date Time Provider Department Center 11/17/2024 6:00 PM [id number], MARIAH PTDIMITRY Álvarez Reason for Visit: Physical Therapy [503] Primary Visit Diagnosis:Acetabular labrum tear, left, subsequent encounter [S73.192D] Other Visit Diagnosis:Radiculopathy, lumbar region [M54.16] Allergies As of Date: 11/17/2024 Noted Allergy Reaction CLINDAMYCIN 05/09/2010 2 - Rash 8 - GI Upset SEPTRA (SULFAMETHOXAZOLE-TRIMET HO*05/09/2010 2 - Rash 8 - GI Upset Date Reviewed: 10/24/2024 Reviewed by: Margareth Steel MA - Fully Assessed Prescriptions as of 11/18/2024 - tezepelumab-ekko (TEZSPIRE) 210 mg/1.91 mL (110 mg/mL) pen injector Inject 210 mg subcutaneously every 4 weeks. - albuterol (PROVENTIL) 2.5 mg /3 mL (0.083 %) nebulizer solution Use 3 mL via nebulizer every 4 hours as needed for wheezing/shortness of breath. - albuterol HFA (PROVENTIL HFA, VENTOLIN HFA) 90 mcg/actuation inhaler Inhale 2 Puffs as instructed every 4 hours as needed for wheezing/shortness of breath. - benzonatate (TESSALON PERLE) 100 mg capsule Take 1 capsule by mouth three times a day as needed for cough for up to 12 doses. - methocarbamol (ROBAXIN) 500 mg tablet Take 1-2 tablets at bedtime as needed for pain or muscle spasms - biotin 5 mg tab Take 5 mg by mouth once daily. - B.animalis,bifid,infanti s,long (PROBIOTIC 4X ORAL) Take by mouth. - famotidine (PEPCID) 20 mg tablet Take 1 tablet by mouth daily at bedtime. - fluticasone-salmeterol HFA (ADVAIR HFA) 230-21 mcg/actuation inhaler Inhale 2 Puffs as instructed two times a day. - albuterol HFA (VENTOLIN HFA) 90 mcg/actuation inhaler Inhale 2 Puffs as instructed every 4 hours as needed for wheezing/shortness of breath (and before sexertion / exercise). - fluticasone (FLONASE) 50 mcg/actuation nasal spray Use 2 Sprays in each nostril once daily. - fluticasone-salmeterol HFA (ADVAIR) 230-21 mcg/actuation inhaler Inhale 2 Puffs as instructed two times a day. - montelukast (SINGULAIR) 10 mg tablet TAKE 1 TABLET BY MOUTH DAILY AT BEDTIME - azelastine 0.1% nasal spray Use 2 Sprays in each nostril two times a day as needed. - ondansetron orally disintegrating (ZOFRAN ODT) 4 mg disintegrating tablet Take 1 tablet by mouth every 8 hours as needed for nausea/vomiting. - PREDNISONE ORAL Take by mouth as needed. Burst - fexofenadine (GM) 180 mg tablet Take 180 mg by mouth once daily as needed. - cetirizine (ZYRTEC) 10 mg tablet Take 10 mg by mouth once daily. Normal [facility] Guidance for injection of Hi yesy 11-07-2024 IMPRESSION: SUCCESSF UL FLUOROSCOPICALLY GUIDED THERAPEUTIC INJECTION OF THE LEFT HIP DESCRIBED ABOVE. Attending Radiologist: Dr. Casey Tavares MD Route Sales Associate: Tong Ordoñez MD - Fellow The procedure was performed by the syrup mixer assistant, and the attending radiologist was not present but immediately available to furnish services during the entire procedure. Condominium Property Manager: PSCB Transcribe Date/Time: Nov 07 2024 3:38P Dictated by : TONG ORDOÑEZ MD This examination was interpreted and the report reviewed and electronically signed by: CASEY TAVARES MD on Nov 07 2024 4:57PM [facility] DIVISION OF RADIOLOGY * * *Final Report* * * DATE OF EXAM: Nov 07 2024 1:41PM SHX [id number] - XR HIP INJECTION LT / PROCEDURE REASON: multiple diagnoses * * * * Physician Interpretation * * * * FLUOROSCOPICALLY GUIDED LEFT HIP THERAPEUTIC INJECTION INDICATION: The patient is a 39 years year old Female who presented with Acetabular labrum tear, left, subsequent encounter. Pain in left hip . CONSENT: The risks, benefits, treatment options, potential complications and personnel to be involved were discussed (including the instruments to be used, contrast and anesthesia administration) with the patient. All questions were answered and consent was obtained. The patient indicated willingness to proceed. GENERAL: a) Medication Reconciliation: The patient's medications and allergies were reviewed in the electronic medical record and reconciled to the proposed procedure/treatment. Pre-procedure Sign-in: Safety Checklist Performed Yes b) Positioning: The patient was placed Supine on the fluoroscopy table. c) The left hip was then sterilely prepped and draped. d) Time Out: A time out was performed immediately prior to procedure start with the nursing, anesthesia and interventional team, correctly identifying the patient name, date of , procedure, anatomy (including marking of site and side), patient position, procedure consent form, relevant diagnostic and radiology test results, antibiotic administration, safety precautions, and procedure-specific equipment needs. Procedure Start Time / Timeout Time: 1337 e) Anesthesia Type: Local anesthesia: 3 mL 1% Lidocaine PROCEDURE: a) Procedure Details:A 20g spinal needle was inserted into the hip joint. 1 ml Omnipaque 300 was injected to confirm intra-articular placement of needle. Contrast was observed to flow into the joint without significant resistance. 7 mL of injectate was administered into the joint . The needle was removed. Images were stored to the permanent digital archive documenting needle position. b) Injectate Contents: 1 mL Triamcinolone Acetonide (Kenalog) 40mg/ml 6 mL 0.5% Ropivacaine (Naropin) c) Estimated Blood Loss: 0 mls d) Number and Type of Removed Specimens: N/A RADIATION DOSE Fluoroscopic Radiation Summary: Air Kerma: 1.8 mGy Fluoro time: 0:6 min:sec POST PROCEDURE: a) Hemostasis: Hemostasis was achieved using light manual compression. b) Sign-out: Communication Performed N/A c) Procedure End Time: 1340 d) Conclusion: The patient was discharged from the radiology department in stable condition. COMPLICATIONS: a) Significant Patient Complication: None b) Complications during the procedure: None RESULTS:Medication was injected into the joint. DIVISION OF RADIOLOGY Provider, [facility] - 11/07/2024 * * *Final Report* * * DATE OF EXAM: Nov 07 2024 1:41PM SHX 5102 - XR HIP INJECTION LT / PROCEDURE REASON: multiple diagnoses * * * * Physician Interpretation * * * * FLUOROSCOPICALLY GUIDED LEFT HIP THERAPEUTIC INJECTION INDICATION: The patient is a 39 years year old Female who presented with Acetabular labrum tear, left, subsequent encounter. Pain in left hip . CONSENT: The risks, benefits, treatment options, potential complications and personnel to be involved were discussed (including the instruments to be used, contrast and anesthesia administration) with the patient. All questions were answered and consent was obtained. The patient indicated willingness to proceed. GENERAL: a) Medication Reconciliation: The patient's medications and allergies were reviewed in the electronic medical record and reconciled to the proposed procedure/treatment. Pre-procedure Sign-in: Safety Checklist Performed Yes b) Positioning: The patient was placed Supine on the fluoroscopy table. c) The left hip was then sterilely prepped and draped. d) Time Out: A time out was performed immediately prior to procedure start with the nursing, anesthesia and interventional team, correctly identifying the patient name, date of , procedure, anatomy (including marking of site and side), patient position, procedure consent form, relevant diagnostic and radiology test results, antibiotic administration, safety precautions, and procedure-specific equipment needs. Procedure Start Time / Timeout Time: 1337 e) Anesthesia Type: Local anesthesia: 3 mL 1% Lidocaine PROCEDURE: a) Procedure Details:A 20g spinal needle was inserted into the hip joint. 1 ml Omnipaque 300 was injected to confirm intra-articular placement of needle. Contrast was observed to flow into the joint without significant resistance. 7 mL of injectate was administered into the joint . The needle was removed. Images were stored to the permanent digital archive documenting needle position. b) Injectate Contents: 1 mL Triamcinolone Acetonide (Kenalog) 40mg/ml 6 mL 0.5% Ropivacaine (Naropin) c) Estimated Blood Loss: 0 mls d) Number and Type of Removed Specimens: N/A RADIATION DOSE Fluoroscopic Radiation Summary: Air Kerma: 1.8 mGy Fluoro time: 0:6 min:sec POST PROCEDURE: a) Hemostasis: Hemostasis was achieved using light manual compression. b) Sign-out: Communication Performed N/A c) Procedure End Time: 1340 d) Conclusion: The patient was discharged from the radiology department in stable condition. COMPLICATIONS: a) Significant Patient Complication: None b) Complications during the procedure: None RESULTS:Medication was injected into the joint. IMPRESSION IMPRESSION: SUCCESSFUL FLUOROSCOPICALLY GUIDED THERAPEUTIC INJECTION OF THE LEFT HIP DESCRIBED ABOVE. Attending Radiologist: Dr. Casey Tavares MD Route Sales Associate: Tong Ordoñez MD - Fellow The procedure was performed by the syrup mixer assistant, and the attending radiologist was not present but immediately available to furnish services during the entire procedure. Condominium Property Manager: PSCB Transcribe Date/Time: Nov 07 2024 3:38P Dictated by : TONG ORDOÑEZ MD This examination was interpreted and the report reviewed and electronically signed by: CASEY TAVARES MD on Nov 07 2024 4:57PM EST [facility] Radiology Study observation (narrative) [facility] Guidance for injection of Hi pOrdered By: [facility] Provider on 11-07-2024 [facility] PT EDon 11-07-2024 PT ED HNO ID: [id number] Author: BAKARI SERVIN RT(R) Service: Radiology Author Type: Technologist Type: Patient Education Filed: 11/07/2024 13:50 Note Text: Radiology Service Progress Note PATIENT NAME: Bessie Solomon DATE OF SERVICE: November 07, 2024 TIME: 1:49 PM PATIENT IDENTITY VERIFICATION COMPLETED USING TWO (2) IDENTIFIERS: Name and Date of confirmed by patient verbally. FALL SCREENING: Has the patient had 2 falls in the last year or 1 fall with injury or currently using an Ambulatory Assistive Device (Walker, Cane, Wheelchair, Crutches, etc.)? No PATIENT GENDER DATA: Assigned female at . status: : No status: NO. PATIENT RELEVANT IMPLANT DATA REVIEWED: Not Applicable PATIENT PRESENTS WITH AN IMPLANTABLE OR ATTACHED INSTRUMENTATION DESIGNER: No RADIOLOGY DEPARTMENT: General X-ray: Exam(s) Completed: THERAPEUTIC JOINT INJECTION left hip PERIPHERAL IV DATA: Not applicable SIGNED BY: RT Loan(R) November 07, 2024 1:49 PM Normal [facility] XR HIP INJECTION LTon 2024 XR HIP INJECTION LT * * *Final Report* * * DATE OF EXAM: Nov 07 2024 1:41PM SHX 5102 - XR HIP INJECTION LT / PROCEDURE REASON: multiple diagnoses * * * * Physician Interpretation * * * * FLUOROSCOPICALLY GUIDED LEFT HIP THERAPEUTIC INJECTION INDICATION: The patient is a 39 years year old Female who presented with Acetabular labrum tear, left, subsequent encounter. Pain in left hip . CONSENT: The risks, benefits, treatment options, potential complications and personnel to be involved were discussed (including the instruments to be used, contrast and anesthesia administration) with the patient. All questions were answered and consent was obtained. The patient indicated willingness to proceed. GENERAL: a) Medication Reconciliation: The patient's medications and allergies were reviewed in the electronic medical record and reconciled to the proposed procedure/treatment. Pre-procedure Sign-in: Safety Checklist Performed Yes b) Positioning: The patient was placed Supine on the fluoroscopy table. c) The left hip was then sterilely prepped and draped. d) Time Out: A time out was performed immediately prior to procedure start with the nursing, anesthesia and interventional team, correctly identifying the patient name, date of , procedure, anatomy (including marking of site and side), patient position, procedure consent form, relevant diagnostic and radiology test results, antibiotic administration, safety precautions, and procedure-specific equipment needs. Procedure Start Time / Timeout Time: 1337 e) Anesthesia Type: Local anesthesia: 3 mL 1% Lidocaine PROCEDURE: a) Procedure Details:A 20g spinal needle was inserted into the hip joint. 1 ml Omnipaque 300 was injected to confirm intra-articular placement of needle. Contrast was observed to flow into the joint without significant resistance. 7 mL of injectate was administered into the joint . The needle was removed. Images were stored to the permanent digital archive documenting needle position. b) Injectate Contents: 1 mL Triamcinolone Acetonide (Kenalog) 40mg/ml 6 mL 0.5% Ropivacaine (Naropin) c) Estimated Blood Loss: 0 mls d) Number and Type of Removed Specimens: N/A RADIATION DOSE Fluoroscopic Radiation Summary: Air Kerma: 1.8 mGy Fluoro time: 0:6 min:sec POST PROCEDURE: a) Hemostasis: Hemostasis was achieved using light manual compression. b) Sign-out: Communication Performed N/A c) Procedure End Time: 1340 d) Conclusion: The patient was discharged from the radiology department in stable condition. COMPLICATIONS: a) Significant Patient Complication: None b) Complications during the procedure: None RESULTS:Medication was injected into the joint. IMPRESSION: SUCCESSFUL FLUOROSCOPICALLY GUIDED THERAPEUTIC INJECTION OF THE LEFT HIP DESCRIBED ABOVE. Attending Radiologist: Dr. Casey Tavares MD Route Sales Associate: Tong Ordoñez MD - Fellow The procedure was performed by the syrup mixer assistant, and the attending radiologist was not present but immediately available to furnish services during the entire procedure. Condominium Property Manager: PSCB Transcribe Date/Time: Nov 07 2024 3:38P Dictated by : TONG ORDOÑEZ MD This examination was interpreted and the report reviewed and electronically signed by: CASEY TAVARES MD on Nov 07 2024 4:57PM EST [id number] Normal [facility] CNTHERAPYon 11-05-2024 CNTHERAPY OT/PT/Speech Visit (PTWS) -------- BESSIE SOLOMON ([id number]) 1985 F Date Time Provider Department 11/05/24 8:15 AM JAJA LEONARD Date Time Provider Department [place] 11/05/2024 8:15 AM [id number] LEONARD Reason for Visit: Physical Therapy [503] Primary Visit Diagnosis:Acetabular labrum tear, left, subsequent encounter [S73.192D] Other Visit Diagnosis:Radiculopathy, lumbar region [M54.16] Allergies As of Date: 11/05/2024 Noted Allergy Reaction CLINDAMYCIN 05/09/2010 2 - Rash 8 - GI Upset SEPTRA (SULFAMETHOXAZOLE-TRIMET HO*05/09/2010 2 - Rash 8 - GI Upset Date Reviewed: 10/24/2024 Reviewed by: Margareth Steel MA - Fully Assessed Prescriptions as of 11/05/2024 - tezepelumab-ekko (TEZSPIRE) 210 mg/1.91 mL (110 mg/mL) pen injector Inject 210 mg subcutaneously every 4 weeks. - albuterol (PROVENTIL) 2.5 mg /3 mL (0.083 %) nebulizer solution Use 3 mL via nebulizer every 4 hours as needed for wheezing/shortness of breath. - albuterol HFA (PROVENTIL HFA, VENTOLIN HFA) 90 mcg/actuation inhaler Inhale 2 Puffs as instructed every 4 hours as needed for wheezing/shortness of breath. - benzonatate (TESSALON PERLE) 100 mg capsule Take 1 capsule by mouth three times a day as needed for cough for up to 12 doses. - methocarbamol (ROBAXIN) 500 mg tablet Take 1-2 tablets at bedtime as needed for pain or muscle spasms - biotin 5 mg tab Take 5 mg by mouth once daily. - B.animalis,bifid,infanti s,long (PROBIOTIC 4X ORAL) Take by mouth. - famotidine (PEPCID) 20 mg tablet Take 1 tablet by mouth daily at bedtime. - fluticasone-salmeterol HFA (ADVAIR HFA) 230-21 mcg/actuation inhaler Inhale 2 Puffs as instructed two times a day. - albuterol HFA (VENTOLIN HFA) 90 mcg/actuation inhaler Inhale 2 Puffs as instructed every 4 hours as needed for wheezing/shortness of breath (and before sexertion / exercise). - fluticasone (FLONASE) 50 mcg/actuation nasal spray Use 2 Sprays in each nostril once daily. - fluticasone-salmeterol HFA (ADVAIR) 230-21 mcg/actuation inhaler Inhale 2 Puffs as instructed two times a day. - montelukast (SINGULAIR) 10 mg tablet TAKE 1 TABLET BY MOUTH DAILY AT BEDTIME - azelastine 0.1% nasal spray Use 2 Sprays in each nostril two times a day as needed. - ondansetron orally disintegrating (ZOFRAN ODT) 4 mg disintegrating tablet Take 1 tablet by mouth every 8 hours as needed for nausea/vomiting. - PREDNISONE ORAL Take by mouth as needed. Burst - fexofenadine (GM) 180 mg tablet Take 180 mg by mouth once daily as needed. - cetirizine (ZYRTEC) 10 mg tablet Take 10 mg by mouth once daily. Assistant Portfolio Manager: Addendum Therapy (PT/OT/Speech/Resp) ID: [id number] 11/05/2024 8:39 AM Author: JAJA LEONARD Signed by JAJA LEONARD PT on 11/05/2024 at 8:39 AM * * * This document replaces document [id number] * * * Document text: Program_ID:[id number] Access Code: [email or web address] URL: [email or web address] Date: 11-05-2024 Prepared By: Jaja Leonard Program Notes Exercises - Lying Prone - 2-3 x daily - 7 x weekly - sets - reps - Static Prone on Elbows - 2-3 x daily - 7 x weekly - 2-3 sets - 1 reps - Prone Push Ups on Forearms - 2-3 x daily - 7 x weekly - 2-3 sets - 10 reps - Standing Lumbar Extension - 1 x daily - 7 x weekly - 2-3 sets - 10 reps - Prone Hip Extension - 1 x daily - 7 x weekly - 4 sets - 12 reps - Prone Knee Flexion - 1 x daily - 7 x weekly - 4 sets - 12 reps - Supine Posterior Pelvic Tilt - 1 x daily - 7 x weekly - 4 sets - 10 reps Normal [facility] THERAPY NTon 11-05-2024 THERAPY NT HNO ID: [id number] Author: JAJA LEONARD, PT Service: ? Author Type: Physical Therapist Type: Therapy (PT/OT/Speech/Resp) Filed: 11/05/2024 08:39 Note Text: Program_ID:[id number] Access Code: [email or web address] URL: [email or web address] Date: 11-05-2024 Prepared By: Jaja Leonard Program Notes Exercises - Lying Prone - 2-3 x daily - 7 x weekly - sets - reps - Static Prone on Elbows - 2-3 x daily - 7 x weekly - 2-3 sets - 1 reps - Prone Push Ups on Forearms - 2-3 x daily - 7 x weekly - 2-3 sets - 10 reps - Standing Lumbar Extension - 1 x daily - 7 x weekly - 2-3 sets - 10 reps - Prone Hip Extension - 1 x daily - 7 x weekly - 4 sets - 12 reps - Prone Knee Flexion - 1 x daily - 7 x weekly - 4 sets - 12 reps - Supine Posterior Pelvic Tilt - 1 x daily - 7 x weekly - 4 sets - 10 reps Normal [facility] Stefania 10-29-2024 CNPN Telephone (ALLMED) -------- SERENABESSIE ([id number]) 1985 F Date Time Provider Department 10/29/24 SAM HANKINS ALLMED During your visit today, we recorded the following information about you: Janelle Ayala, RN 10/29/2024 9:15 AM Signed 10/28/24, fax received from [facility] specialty pharmacy for patients [employer] stating to contact [employer] at . This nurse contacted [employer] and was told that the PA would have to go through [employer], [employer] provided the number . But [employer] PA staff were unable to find the patient under their insurance ID or information. Patient contacted to confirm that the insurance information we have is correct and she confirmed that it was. 10/29/24 [facility] specialty pharmacy contacted and they stated that they also can not find the patients member ID in the system. Patient called and asked to double check her information with her insurance company to be sure. Allergies As of Date: 10/29/2024 Noted Allergy Reaction CLINDAMYCIN 05/09/2010 2 - Rash 8 - GI Upset SEPTRA (SULFAMETHOXAZOLE-TRIMET HO*05/09/2010 2 - Rash 8 - GI Upset Date Reviewed: 10/24/2024 Reviewed by: Margareth Steel MA - Fully Assessed Prescriptions as of 10/29/2024 - tezepelumab-ekko (TEZSPIRE) 210 mg/1.91 mL (110 mg/mL) pen injector Inject 210 mg subcutaneously every 4 weeks. - albuterol (PROVENTIL) 2.5 mg /3 mL (0.083 %) nebulizer solution Use 3 mL via nebulizer every 4 hours as needed for wheezing/shortness of breath. - albuterol HFA (PROVENTIL HFA, VENTOLIN HFA) 90 mcg/actuation inhaler Inhale 2 Puffs as instructed every 4 hours as needed for wheezing/shortness of breath. - benzonatate (TESSALON PERLE) 100 mg capsule Take 1 capsule by mouth three times a day as needed for cough for up to 12 doses. - methocarbamol (ROBAXIN) 500 mg tablet Take 1-2 tablets at bedtime as needed for pain or muscle spasms - biotin 5 mg tab Take 5 mg by mouth once daily. - B.animalis,bifid,infanti s,long (PROBIOTIC 4X ORAL) Take by mouth. - famotidine (PEPCID) 20 mg tablet Take 1 tablet by mouth daily at bedtime. - fluticasone-salmeterol HFA (ADVAIR HFA) 230-21 mcg/actuation inhaler Inhale 2 Puffs as instructed two times a day. - albuterol HFA (VENTOLIN HFA) 90 mcg/actuation inhaler Inhale 2 Puffs as instructed every 4 hours as needed for wheezing/shortness of breath (and before sexertion / exercise). - fluticasone (FLONASE) 50 mcg/actuation nasal spray Use 2 Sprays in each nostril once daily. - fluticasone-salmeterol HFA (ADVAIR) 230-21 mcg/actuation inhaler Inhale 2 Puffs as instructed two times a day. - montelukast (SINGULAIR) 10 mg tablet TAKE 1 TABLET BY MOUTH DAILY AT BEDTIME - azelastine 0.1% nasal spray Use 2 Sprays in each nostril two times a day as needed. - ondansetron orally disintegrating (ZOFRAN ODT) 4 mg disintegrating tablet Take 1 tablet by mouth every 8 hours as needed for nausea/vomiting. - PREDNISONE ORAL Take by mouth as needed. Burst - fexofenadine (GM) 180 mg tablet Take 180 mg by mouth once daily as needed. - cetirizine (ZYRTEC) 10 mg tablet Take 10 mg by mouth once daily. Problem List As Of Date 10/29/2024 Noted Resolved Irritable bowel syndrome with diarrhea [K58.0] 07/19/2010 Chest pain [R07.9] 04/19/2021 12/04/2023 SOB (shortness of breath) [R06.02] 04/19/2021 Essential hypertension, benign [I10] 04/19/2021 12/04/2023 Stress incontinence in female [N39.3] 11/10/2021 Menorrhagia with regular cycle [N92.0] 11/10/2021 Dysmenorrhea [N94.6] 11/10/2021 Cervical polyp [N84.1] 11/10/2021 Severe persistent asthma without complication [*05/31/2022 Seasonal allergic rhinitis due to pollen [J30.1]05/31/2022 Chronic rhinitis [J31.0] 05/31/2022 Epigastric pain [R10.13] 07/23/2023 Nausea [R11.0] 07/23/2023 Rectal bleeding [K62.5] 07/23/2023 Acetabular labrum tear, unspecified laterality,*09/14/2023 07/18/2024 Acetabular labrum tear, left, initial encounter*09/14/2023 07/18/2024 Tear of right acetabular labrum [S73.191A] 12/14/2023 07/18/2024 Acetabular labrum tear, left, subsequent encoun*10/17/2024 Radiculopathy, lumbar region [M54.16] 10/17/2024 Encounter Status:Closed by JANELLE AYALA on 10/29/24 [facility] CNOVon 10-24-2024 CNOV Office Visit (SPHTB) -------- BESSIE SOLOMON ([id number]) 1985 F Date Time Provider Department 10/24/24 9:30 AM DEBBIE MUSTAFA SPHTB During your visit today, we recorded the following information about you: Debbie Mustafa PA-C 10/24/2024 4:40 PM Signed DEPARTMENT OF ORTHOPAEDICS October 24, 2024 CC: left hip pain HPI: Bessie returns for left hip follow-up. Since our last visit September 19 she has been working with physical therapy. She reports significant improvement in her back pain with physical therapy as well as improvement in lower extremity numbness, now tips of toes only. She reports she is able to bend down and touch her toes and able to be more active with her kids. She continues to have constant deep left groin ache 2-3/10 increased with activity - needs to change positions frequently She denies interim injury or trauma. She is 10 months plus status post left hip arthroscopy with labral repair. PAIN EVALUATION 10/19/2024 1423 10/24/2024 0909 Pain Level: -- 4 Pain Location: Hip-Left Hip-Left Description: Aching;Dull;Radiating;So re Aching Duration Amount of Time: 6 2 Duration Units: Weeks Weeks Frequency: Continuous Continuous Intervention/Comfort measure: Medication;Reposition;Re laxation;Cold;Exercise;H eat;Massage;Positioning Cold;Heat;Medication Past Medical History: PAST MEDICAL HISTORY Diagnosis Date Acetabular labrum tear, left, initial encounter 09/14/2023 Acetabular labrum tear, unspecified laterality, subsequent encounter 09/14/2023 Asthma Constipation Diarrhea Dyspnea on exertion History of echocardiogram 05/13/2021 EF 60-65% RV systolic pressure 25mmHg R atrial pressure 3mmHg History of stress test 05/13/2021 no ischemic electrocardiogrpahic changes noted pt developed chest pressure ehich resolved in recovery phase average exercise capacity for age baseline htn with a normal BP response to exercise Tear of right acetabular labrum 12/14/2023 Family History: FAMILY HISTORY Problem Relation Age of Onset other (cerical cancer) Mother Asthma Sister Heart Maternal Grandmother Medications: albuterol (PROVENTIL) 2.5 mg /3 mL (0.083 %) nebulizer solution Use 3 mL via nebulizer every 4 hours as needed for wheezing/shortness of breath. albuterol HFA (PROVENTIL HFA, VENTOLIN HFA) 90 mcg/actuation inhaler Inhale 2 Puffs as instructed every 4 hours as needed for wheezing/shortness of breath. methocarbamol (ROBAXIN) 500 mg tablet Take 1-2 tablets at bedtime as needed for pain or muscle spasms biotin 5 mg tab Take 5 mg by mouth once daily. B.animalis,bifid,infanti s,long (PROBIOTIC 4X ORAL) Take by mouth. TEZSPIRE 210 mg/1.91 mL (110 mg/mL) injection INJECT 1 PEN SUBCUTANEOUSLY EVERY 4 WEEKS fluticasone-salmeterol HFA (ADVAIR HFA) 230-21 mcg/actuation inhaler Inhale 2 Puffs as instructed two times a day. albuterol HFA (VENTOLIN HFA) 90 mcg/actuation inhaler Inhale 2 Puffs as instructed every 4 hours as needed for wheezing/shortness of breath (and before sexertion / exercise). fluticasone (FLONASE) 50 mcg/actuation nasal spray Use 2 Sprays in each nostril once daily. montelukast (SINGULAIR) 10 mg tablet TAKE 1 TABLET BY MOUTH DAILY AT BEDTIME azelastine 0.1% nasal spray Use 2 Sprays in each nostril two times a day as needed. ondansetron orally disintegrating (ZOFRAN ODT) 4 mg disintegrating tablet Take 1 tablet by mouth every 8 hours as needed for nausea/vomiting. PREDNISONE ORAL Take by mouth as needed. Burst fexofenadine (GM) 180 mg tablet Take 180 mg by mouth once daily as needed. cetirizine (ZYRTEC) 10 mg tablet Take 10 mg by mouth once daily. benzonatate (TESSALON PERLE) 100 mg capsule Take 1 capsule by mouth three times a day as needed for cough for up to 12 doses. (Patient not taking: Reported on 10/24/2024) famotidine (PEPCID) 20 mg tablet Take 1 tablet by mouth daily at bedtime. (Patient not taking: Reported on 09/15/2024) fluticasone-salmeterol HFA (ADVAIR) 230-21 mcg/actuation inhaler Inhale 2 Puffs as instructed two times a day. (Patient not taking: Reported on 08/04/2024) Allergies: ALLERGIES Allergen Reactions Clindamycin Rash, GI Upset Septra [Sulfamethox* Rash, GI Upset Physical Exam: Musculoskeletal Exam: Gait normal, Posture: erect and normal. Exam: Right Left Single Leg Trendelenburg Negative Equivocal Straight leg raise positive anterior groin pain at 70 degrees, relieved with bent knee Slump test negative Negative positive Hip flexion 195 95 - end range pain IR 20 20 ER 60 50 Anterior impingement negative positive Dynamic labral stress negative negative FAHAD negative positive Posterior Impingement negative Negative - anterior groin pain MILADYS N/t negative Strength Right Left Supine HF 5/5 5-/5 Upright HF 5/5 4+/5 Adduction 5/5 5/5 Abduction N/T 4+/5 Tenderness with Palpatio (more content not included)... Normal [facility] CNOVon 10-23-2024 CNOV Office Visit (DERMSO ) -------- BESSIE SOLOMON ([id number]) 1985 F Date Time Provider Department 10/23/24 10:50 AM BERNARD ESTRADA DERMSO During your visit today, we recorded the following information about you: Krystle Gomez RN 10/23/2024 10:57 AM Signed CARE OF BIOPSY SITE Starting 24 hours after the procedure: DAILY: Wash your hands with soap and water. 2. Cleanse the biopsy site with antibacterial soap. 3. Thoroughly dry the area and apply a small amount of Vaseline or Aquaphor to keep area greasy at all times (this prevents a scab from forming). 4. PLEASE DO NOT use polysporin, Bacitracin, triple antibiotic or similar ointments. 5. Place a small dressing or band-aid over the wound until the wound is healed. (Studies show that wounds heal better when covered with ointment and a dressing). If you have any questions or concerns, please contact the office at [phone]. Krystle Gomez RN 10/23/2024 11:21 AM Signed UN[employer]ERSAL PROTOCOL / SAFETY CHECKLIST Procedure to be Performed: Biopsy Sign In: A Moment of CARE was completed. Personnel directly involved with the procedure wore the appropriate PPE (Personal Protective Equipment). Patient/Surrogate Stated/Verified: PATIENT VERIFIED(optional for EMERGENT procedures): Patient name, Date of , Relevant allergies, and The intended procedure Time Out Communication: Intended patient and procedure match the source documents. Consent documented and matches the intended procedure. Correct side/site marked and visible. Medications required for procedure verified. Sign Out: SIGN OUT (optional for EMERGENT procedures): All specimen containers correctly labeled. Post-procedure follow-up management communicated and Plan of Care Visit completed when applicable. MICKEY Swann Philip Noel, MD 10/23/2024 11:21 AM Signed Bessie Solomon is a 39 year old female who presents for Bx of atypical nevus(see 09/15/24 note). Denies itching burning, drainage or bleeding from site(s). Patient denies any other skin disorders anywhere else on body. Last visit was: 09/15/24 Current Treatment: no See 09/15/24 note for past medical history/medications/stan rgy/social history Review of systems: Negative for malaise, significant weight loss and fever. Has no dermatologic or systemic symptoms not already mentioned OBJECTIVE: Well appearing White female with type 2 skin, who is alert, oriented and in no apparent distress Suspicious lesions noted on: A-L mid posterior lateral thigh(1.4 cm) Procedure: Side effect of Rx include pain, bleeding, and possible site infection discussed and wishes to proceed. After informed consent was obtained, and picture taken, ETOH for cleansing and 1% lidocaine with epinephrine for anesthetic, with sterile technique, shave excision of lesion A and aluminum chloride application. Antibiotic dressing is applied and wound care instructions provided. The procedure was well tolerated without complications. ASSESSMENT/PLAN: (D22.9) Atypical nevus (primary encounter diagnosis) Comment: lesion A Plan: SURGICAL PATHOLOGY Wound care instructions given by nurse. F/u after path Referring Provider: SELF [200] Allergies As of Date: 10/23/2024 Noted Allergy Reaction CLINDAMYCIN 05/09/2010 2 - Rash 8 - GI Upset SEPTRA (SULFAMETHOXAZOLE-TRIMET HO*05/09/2010 2 - Rash 8 - GI Upset Date Reviewed: 10/23/2024 Reviewed by: Kati Marcus MA - Fully Assessed Reason for Visit: Biopsy [1351] Primary Visit Diagnosis:Atypical nevus [D22.9] Order(s):SURGICAL PATHOLOGY [[id number]] Order #: [id number]. #:[id number] Prescriptions as of 10/23/2024 - albuterol (PROVENTIL) 2.5 mg /3 mL (0.083 %) nebulizer solution Use 3 mL via nebulizer every 4 hours as needed for wheezing/shortness of breath. - albuterol HFA (PROVENTIL HFA, VENTOLIN HFA) 90 mcg/actuation inhaler Inhale 2 Puffs as instructed every 4 hours as needed for wheezing/shortness of breath. - benzonatate (TESSALON PERLE) 100 mg capsule Take 1 capsule by mouth three times a day as needed for cough for up to 12 doses. - methocarbamol (ROBAXIN) 500 mg tablet Take 1-2 tablets at bedtime as needed for pain or muscle spasms - biotin 5 mg tab Take 5 mg by mouth once daily. - B.animalis,bifid,infanti s,long (PROBIOTIC 4X ORAL) Take by mouth. - TEZSPIRE 210 mg/1.91 mL (110 mg/mL) injection INJECT 1 PEN SUBCUTANEOUSLY EVERY 4 WEEKS - famotidine (PEPCID) 20 mg tablet Take 1 tablet by mouth daily at bedtime. - fluticasone-salmeterol HFA (ADVAIR HFA) 230-21 mcg/actuation inhaler Inhale 2 Puffs as instructed two times a day. - albuterol HFA (VENTOLIN HFA) 90 mcg/actuation inhaler Inhale 2 Puffs as instructed every 4 hours as needed for wheezing/shortness of breath (and before sexertion / exercise). - fluticasone (FLONASE) 50 mcg/ac (more content not included)... Normal [facility] SURGICAL PATHOLOGYon 025 CASE REPORT Normal [facility] Comment on above: Order Comment: Speci men Type: TISSUE SPECIMEN Ordering Facility: [facility] Address: [address] [place] [address] Result Comment: Surg [facility] Pathology Report Case: [id number] Authorizing Provider: Bernard Estrada MD Collected: 10/23/2024 11:14 AM Ordering Location: Dermatology Received: 10/23/2024 12:41 PM Pathologist: Kvng Jiménez MD Specimen: Skin, Shave Biopsy, left mid posterior lateral thigh Performed By: #### S #### [facility] CLIA [id number] [address] [place] [address] [place] CLINICAL HISTORY 39 y/o WF with atypi jos L thigh nevus. R/o moderate atypia Normal [facility] Comment on above: Order Comment: Speci men Type: TISSUE SPECIMEN Ordering Facility: [facility] Address: [address] [place] [address] Performed By: #### S #### [facility] CLIA [id number] [address] [place] [address] [place] FINAL DIAGNOSIS Normal [facility] Comment on above: Order Comment: Speci men Type: TISSUE SPECIMEN Ordering Facility: [facility] Address: [address] [place] [address] Result Comment: A. S kin, left mid posterior lateral thigh, shave biopsy: - Intradermal nevus. SDB/JM/mm/10/24/2024 Performed By: #### S #### [facility] CLIA [id number] [address] [place] [address] [place] FINAL PERFORMING LAB Normal [facility] Comment on above: Order Comment: Speci men Type: TISSUE SPECIMEN Ordering Facility: [facility] Address: [address] [place] [address] Result Comment: Diag nostic interpretation performed at: [facility], [address] [place], [place] [id number] CLIA# [id number] Telecommunications Administrator: Conor Walker MD Performed By: #### S #### [facility] CLIA [id number] [address] [place] [address] [place] GROSS DESCRIPTION Normal [facility] Comment on above: Order Comment: Speci men Type: TISSUE SPECIMEN Ordering Facility: [facility] Address: [address] [place] [address] Result Comment: A. S kin, Shave Biopsy Received in formalin is a 1.2 x 1.1 x 0.1 cm shave of skin. On the skin surface there is a 1.2 cm drew and brown area. The specimen is bisected. Totally submitted in one cassette. AJB October 23, 2024 5:58 PM Gross examination performed at [facility], [address] [place] [address] Performed By: #### S #### [facility] CLIA [id number] [address] [place] [address] [id number] OF [facility] CNTHERAPYon 10-17-2024 CNTHERAPY OT/PT/Speech Visit (PTWS) -------- BESSIE SOLOMON ([id number]) 1985 F Date Time Provider Department 10/17/24 8:45 AM ENRIQUE ALMONTE PTWS Date Time Provider Department Center 10/17/2024 8:45 AM [id number] ALMONTE PTWS [facility] Reason for Visit: PT Eval [747] Primary Visit Diagnosis:Acetabular labrum tear, left, subsequent encounter [S73.192D] Other Visit Diagnosis:Radiculopathy, lumbar region [M54.16] Allergies As of Date: 10/17/2024 Noted Allergy Reaction CLINDAMYCIN 05/09/2010 2 - Rash 8 - GI Upset SEPTRA (SULFAMETHOXAZOLE-TRIMET HO*05/09/2010 2 - Rash 8 - GI Upset Date Reviewed: 09/29/2024 Reviewed by: Ollie Rivero APRN.WAREHOUSE REPRESENTATIVE - Fully Assessed Prescriptions as of 10/17/2024 - albuterol (PROVENTIL) 2.5 mg /3 mL (0.083 %) nebulizer solution Use 3 mL via nebulizer every 4 hours as needed for wheezing/shortness of breath. - albuterol HFA (PROVENTIL HFA, VENTOLIN HFA) 90 mcg/actuation inhaler Inhale 2 Puffs as instructed every 4 hours as needed for wheezing/shortness of breath. - benzonatate (TESSALON PERLE) 100 mg capsule Take 1 capsule by mouth three times a day as needed for cough for up to 12 doses. - methocarbamol (ROBAXIN) 500 mg tablet Take 1-2 tablets at bedtime as needed for pain or muscle spasms - biotin 5 mg tab Take 5 mg by mouth once daily. - B.animalis,bifid,infanti s,long (PROBIOTIC 4X ORAL) Take by mouth. - TEZSPIRE 210 mg/1.91 mL (110 mg/mL) injection INJECT 1 PEN SUBCUTANEOUSLY EVERY 4 WEEKS - famotidine (PEPCID) 20 mg tablet Take 1 tablet by mouth daily at bedtime. - fluticasone-salmeterol HFA (ADVAIR HFA) 230-21 mcg/actuation inhaler Inhale 2 Puffs as instructed two times a day. - albuterol HFA (VENTOLIN HFA) 90 mcg/actuation inhaler Inhale 2 Puffs as instructed every 4 hours as needed for wheezing/shortness of breath (and before sexertion / exercise). - fluticasone (FLONASE) 50 mcg/actuation nasal spray Use 2 Sprays in each nostril once daily. - fluticasone-salmeterol HFA (ADVAIR) 230-21 mcg/actuation inhaler Inhale 2 Puffs as instructed two times a day. - montelukast (SINGULAIR) 10 mg tablet TAKE 1 TABLET BY MOUTH DAILY AT BEDTIME - azelastine 0.1% nasal spray Use 2 Sprays in each nostril two times a day as needed. - ondansetron orally disintegrating (ZOFRAN ODT) 4 mg disintegrating tablet Take 1 tablet by mouth every 8 hours as needed for nausea/vomiting. - PREDNISONE ORAL Take by mouth as needed. Burst - fexofenadine (GM) 180 mg tablet Take 180 mg by mouth once daily as needed. - cetirizine (ZYRTEC) 10 mg tablet Take 10 mg by mouth once daily. Normal [facility] TSH SerPl-aCncon 10-17-2024 TSH Qn 1.820 m[IU]/L Normal 0.270-4.200 [facility] Comment on above: Order Comment: Speci men Type: BLOOD SPECIMEN Ordering Facility: [facility] Address: [address] [place] [address] Result Comment: If t he patient is , TSH reference range varies by gestational period: First Trimester (weeks 9-12): 0.180-2.990 mIU/L Second Trimester: 0.110-3.980 mIU/L Third Trimester: 0.480-4.710 mIU/L Warren oRdarte et al. A Practical Approach for the Verifications and Determination of Site- and Trimester-Specific Reference Intervals for Thyroid Function tests in . Thyroid, 2019:29:3:412-420. Henri Clements, et al. 2017 Guidelines of the [place] [employer] for the Diagnosis and Management of Thyroid Disease during and the . Thyroid, 2017:27:3:315-389. Performed By: #### 5 [id number] #### [facility] CLIA [id number] [address] [place], [place] [address] [place] [address] [place] Stefania 10-03-2024 CNPN Telephone (ALLMED) -------- BESSIE SOLOMON ([id number]) 1985 F Date Time Provider Department 10/03/24 SAM HANKINS ALLRIC During your visit today, we recorded the following information about you: Bessie De León 10/03/2024 8:53 AM Signed PT changed insurance coverage at the beginning of the new year. PT's Tezspire needs to be re authorized under her new coverage. Per PT, her pharmacy sent over PA paperwork to the office yesterday. Please complete and send back. Call PT with questions. Alba Barrett, RN 10/03/2024 3:40 PM Signed Completed PA and faxed to [facility] with office notes and recent PFT's for review. Awaiting for response. Janelle Ayala RN 10/15/2024 10:00 AM Signed Spoke with Ofelia Tripathi At [facility] ([phone]). Patients PA has been approved and she will have someone call the patient to walk them through the process of mail ordering and assist them with picking out a pharmacy. Per Ofelia pts preferred pharmacy is [facility] ([phone]). At this time [facility] stated they would handle getting the patient her medication. Allergies As of Date: 10/03/2024 Noted Allergy Reaction CLINDAMYCIN 05/09/2010 2 - Rash 8 - GI Upset SEPTRA (SULFAMETHOXAZOLE-TRIMET HO*05/09/2010 2 - Rash 8 - GI Upset Date Reviewed: 09/29/2024 Reviewed by: Ollie Rivero APRN.WAREHOUSE REPRESENTATIVE - Fully Assessed Reason for Visit: 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 [Other] Prescriptions as of 10/15/2024 - albuterol (PROVENTIL) 2.5 mg /3 mL (0.083 %) nebulizer solution Use 3 mL via nebulizer every 4 hours as needed for wheezing/shortness of breath. - albuterol HFA (PROVENTIL HFA, VENTOLIN HFA) 90 mcg/actuation inhaler Inhale 2 Puffs as instructed every 4 hours as needed for wheezing/shortness of breath. - benzonatate (TESSALON PERLE) 100 mg capsule Take 1 capsule by mouth three times a day as needed for cough for up to 12 doses. - methocarbamol (ROBAXIN) 500 mg tablet Take 1-2 tablets at bedtime as needed for pain or muscle spasms - biotin 5 mg tab Take 5 mg by mouth once daily. - B.animalis,bifid,infanti s,long (PROBIOTIC 4X ORAL) Take by mouth. - TEZSPIRE 210 mg/1.91 mL (110 mg/mL) injection INJECT 1 PEN SUBCUTANEOUSLY EVERY 4 WEEKS - famotidine (PEPCID) 20 mg tablet Take 1 tablet by mouth daily at bedtime. - fluticasone-salmeterol HFA (ADVAIR HFA) 230-21 mcg/actuation inhaler Inhale 2 Puffs as instructed two times a day. - albuterol HFA (VENTOLIN HFA) 90 mcg/actuation inhaler Inhale 2 Puffs as instructed every 4 hours as needed for wheezing/shortness of breath (and before sexertion / exercise). - fluticasone (FLONASE) 50 mcg/actuation nasal spray Use 2 Sprays in each nostril once daily. - fluticasone-salmeterol HFA (ADVAIR) 230-21 mcg/actuation inhaler Inhale 2 Puffs as instructed two times a day. - montelukast (SINGULAIR) 10 mg tablet TAKE 1 TABLET BY MOUTH DAILY AT BEDTIME - azelastine 0.1% nasal spray Use 2 Sprays in each nostril two times a day as needed. - ondansetron orally disintegrating (ZOFRAN ODT) 4 mg disintegrating tablet Take 1 tablet by mouth every 8 hours as needed for nausea/vomiting. - PREDNISONE ORAL Take by mouth as needed. Burst - fexofenadine (GM) 180 mg tablet Take 180 mg by mouth once daily as needed. - cetirizine (ZYRTEC) 10 mg tablet Take 10 mg by mouth once daily. Problem List As Of Date 10/03/2024 Noted Resolved Irritable bowel syndrome with diarrhea [K58.0] 07/19/2010 Chest pain [R07.9] 04/19/2021 12/04/2023 SOB (shortness of breath) [R06.02] 04/19/2021 Essential hypertension, benign [I10] 04/19/2021 12/04/2023 Stress incontinence in female [N39.3] 11/10/2021 Menorrhagia with regular cycle [N92.0] 11/10/2021 Dysmenorrhea [N94.6] 11/10/2021 Cervical polyp [N84.1] 11/10/2021 Severe persistent asthma without complication [*05/31/2022 Seasonal allergic rhinitis due to pollen [J30.1]05/31/2022 Chronic rhinitis [J31.0] 05/31/2022 Epigastric pain [R10.13] 07/23/2023 Nausea [R11.0] 07/23/2023 Rectal bleeding [K62.5] 07/23/2023 Acetabular labrum tear, unspecified laterality,*09/14/2023 07/18/2024 Acetabular labrum tear, left, initial encounter*09/14/2023 07/18/2024 Tear of right acetabular labrum [S73.191A] 12/14/2023 07/18/2024 Encounter Status:Closed by ALBA BARRETT on 10/15/24 [facility] -------- BESSIE SOLOMON ([id number]) 1985 F Date Time Provider Department 09/30/24 SANTOS LEGGETT [facility] During your visit today, we recorded the following information about you: Santos Leggett APRN.WAREHOUSE REPRESENTATIVE 09/30/2024 7:12 AM Signed Please call patient let her know she is positive for RSV. This is a virus. There is no treatment. Supportive care and lfrf-czi-[id number] medications are recommended. Patient was negative for COVID and flu. Enrique Brennan MA 09/30/2024 7:23 AM Signed Patient given results and verbalized understanding of instructions given. Enrique Brennan MA Allergies As of Date: 09/30/2024 Noted Allergy Reaction CLINDAMYCIN 05/09/2010 2 - Rash 8 - GI Upset SEPTRA (SULFAMETHOXAZOLE-TRIMET HO*05/09/2010 2 - Rash 8 - GI Upset Date Reviewed: 09/29/2024 Reviewed by: Ollie Rivero APRN.WAREHOUSE REPRESENTATIVE - Fully Assessed Reason for Visit: Results [95] Prescriptions as of 09/30/2024 - benzonatate (TESSALON PERLE) 100 mg capsule Take 1 capsule by mouth three times a day as needed for cough for up to 12 doses. - predniSONE (DELTASONE) 50 mg Take 1 tablet by mouth once daily for 5 days. - methocarbamol (ROBAXIN) 500 mg tablet Take 1-2 tablets at bedtime as needed for pain or muscle spasms - biotin 5 mg tab Take 5 mg by mouth once daily. - B.animalis,bifid,infanti s,long (PROBIOTIC 4X ORAL) Take by mouth. - TEZSPIRE 210 mg/1.91 mL (110 mg/mL) injection INJECT 1 PEN SUBCUTANEOUSLY EVERY 4 WEEKS - famotidine (PEPCID) 20 mg tablet Take 1 tablet by mouth daily at bedtime. - fluticasone-salmeterol HFA (ADVAIR HFA) 230-21 mcg/actuation inhaler Inhale 2 Puffs as instructed two times a day. - albuterol (PROVENTIL) 2.5 mg /3 mL (0.083 %) nebulizer solution Use 3 mL via nebulizer every 4 hours as needed for wheezing/shortness of breath. - albuterol HFA (VENTOLIN HFA) 90 mcg/actuation inhaler Inhale 2 Puffs as instructed every 4 hours as needed for wheezing/shortness of breath (and before sexertion / exercise). - fluticasone (FLONASE) 50 mcg/actuation nasal spray Use 2 Sprays in each nostril once daily. - fluticasone-salmeterol HFA (ADVAIR) 230-21 mcg/actuation inhaler Inhale 2 Puffs as instructed two times a day. - montelukast (SINGULAIR) 10 mg tablet TAKE 1 TABLET BY MOUTH DAILY AT BEDTIME - azelastine 0.1% nasal spray Use 2 Sprays in each nostril two times a day as needed. - ondansetron orally disintegrating (ZOFRAN ODT) 4 mg disintegrating tablet Take 1 tablet by mouth every 8 hours as needed for nausea/vomiting. - PREDNISONE ORAL Take by mouth as needed. Burst - fexofenadine (GM) 180 mg tablet Take 180 mg by mouth once daily as needed. - cetirizine (ZYRTEC) 10 mg tablet Take 10 mg by mouth once daily. Problem List As Of Date 09/30/2024 Noted Resolved Irritable bowel syndrome with diarrhea [K58.0] 07/19/2010 Chest pain [R07.9] 04/19/2021 12/04/2023 SOB (shortness of breath) [R06.02] 04/19/2021 Essential hypertension, benign [I10] 04/19/2021 12/04/2023 Stress incontinence in female [N39.3] 11/10/2021 Menorrhagia with regular cycle [N92.0] 11/10/2021 Dysmenorrhea [N94.6] 11/10/2021 Cervical polyp [N84.1] 11/10/2021 Severe persistent asthma without complication [*05/31/2022 Seasonal allergic rhinitis due to pollen [J30.1]05/31/2022 Chronic rhinitis [J31.0] 05/31/2022 Epigastric pain [R10.13] 07/23/2023 Nausea [R11.0] 07/23/2023 Rectal bleeding [K62.5] 07/23/2023 Acetabular labrum tear, unspecified laterality,*09/14/2023 07/18/2024 Acetabular labrum tear, left, initial encounter*09/14/2023 07/18/2024 Tear of right acetabular labrum [S73.191A] 12/14/2023 07/18/2024 Encounter Status:Closed by ENRIQUE BRENNAN on 09/30/24 [facility] CNOVfabian 09-29-2024 CNOV Office Visit (UCWSTR ) -------- BESSIE SOLOMON ([id number]) 1985 F Date Time Provider Department 09/29/24 6:45 PM OLLIE RIVERO [facility] During your visit today, we recorded the following information about you: Temperature Pulse Respiration Blood pressure 99.1 degrees 108/minute 18/minute 144/90 Weight 88.8 kg Ollie Rivero APRN.CNP 09/29/2024 7:22 PM Signed This note was created using NoteWriter. Subjective Bessie Solomon is a 39 year old female. HPI Pt has had a cough and runny nose for the last three days. Review of Systems Constitutional: Positive for fever. HENT: Negative for sinus pressure and sinus pain. Respiratory: Positive for cough. Objective BP 144/90 Pulse 108 Temp 37.3 ?C (99.1 ?F) Resp 18 Wt 88.8 kg (195 lb 12.3 oz) LMP 09/04/2024 (Approximate) SpO2 99% BMI 32.58 kg/m? Physical Exam Vitals and nursing note reviewed. Constitutional: General: She is not in acute distress. Appearance: Normal appearance. She is not ill-appearing. HENT: Head: Normocephalic. Mouth/Throat: Mouth: Mucous membranes are moist. Eyes: Conjunctiva/sclera: Conjunctivae normal. Cardiovascular: Rate and Rhythm: Regular rhythm. Tachycardia present. Pulmonary: Effort: Pulmonary effort is normal. No respiratory distress. Breath sounds: Wheezing present. Comments: Persistent dry cough Musculoskeletal: General: Normal range of motion. Cervical back: Normal range of motion. Skin: General: Skin is warm and dry. Neurological: General: No focal deficit present. Mental Status: She is alert. Psychiatric: Mood and Affect: Mood normal. Behavior: Behavior normal. Assessment and Plan ASSESSMENT/PLAN: 1. Acute cough - ICD9: 786.2, ICD10: R05.1 X-ray of chest unremarkable. Patient given prescriptions for Tessalon Perles and prednisone. Patient does have history of asthma and has a rescue inhaler and a home nebulizer which she can use as needed. Per patient's request she was tested for influenza and COVID. She was concerned about possible RSV as they do have an 8-month-old grandchild. - BENZONATATE 100 MG CAPSULE - PREDNISONE 50 MG TABLET - COVID AND INFLUENZA A/B AND RSV PCR, ROUTINE - XR CHEST 2V FRONTAL/LAT Ollie Rivero APRN.WAREHOUSE REPRESENTATIVE Allergies As of Date: 09/29/2024 Noted Allergy Reaction CLINDAMYCIN 05/09/2010 2 - Rash 8 - GI Upset SEPTRA (SULFAMETHOXAZOLE-TRIMET HO*05/09/2010 2 - Rash 8 - GI Upset Date Reviewed: 09/29/2024 Reviewed by: Ollie Rivero APRN.WAREHOUSE REPRESENTATIVE - Fully Assessed Reason for Visit: Chest Congestion [236] Cmt: cough x 3 days Primary Visit Diagnosis:Acute cough [R05.1] Order(s):benzonatate (TESSALON PERLE) 100 mg capsuleTake 1 capsule by mouth three times a day as needed for cough for up to 12 doses.Disp: 12 capsuleRfl: 0 predniSONE (DELTASONE) 50 mgTake 1 tablet by mouth once daily for 5 days.Disp: 5 tabletRfl: 0 COVID AND INFLUENZA A/B AND RSV PCR, ROUTINE [SQCVFLRS] Order #: [id number]. #:[id number] XR CHEST 2V FRONTAL/LAT [[id number]] Order #: [id number] FUTURE Prescriptions as of 09/29/2024 - benzonatate (TESSALON PERLE) 100 mg capsule Take 1 capsule by mouth three times a day as needed for cough for up to 12 doses. - predniSONE (DELTASONE) 50 mg Take 1 tablet by mouth once daily for 5 days. - indomethacin ER 75 mg CR capsule Take 1 capsule by mouth two times a day with meals for 10 days. - methocarbamol (ROBAXIN) 500 mg tablet Take 1-2 tablets at bedtime as needed for pain or muscle spasms - biotin 5 mg tab Take 5 mg by mouth once daily. - B.animalis,bifid,infanti s,long (PROBIOTIC 4X ORAL) Take by mouth. - TEZSPIRE 210 mg/1.91 mL (110 mg/mL) injection INJECT 1 PEN SUBCUTANEOUSLY EVERY 4 WEEKS - famotidine (PEPCID) 20 mg tablet Take 1 tablet by mouth daily at bedtime. - fluticasone-salmeterol HFA (ADVAIR HFA) 230-21 mcg/actuation inhaler Inhale 2 Puffs as instructed two times a day. - albuterol (PROVENTIL) 2.5 mg /3 mL (0.083 %) nebulizer solution Use 3 mL via nebulizer every 4 hours as needed for wheezing/shortness of breath. - albuterol HFA (VENTOLIN HFA) 90 mcg/actuation inhaler Inhale 2 Puffs as instructed every 4 hours as needed for wheezing/shortness of breath (and before sexertion / exercise). - fluticasone (FLONASE) 50 mcg/actuation nasal spray Use 2 Sprays in each nostril once daily. - fluticasone-salmeterol HFA (ADVAIR) 230-21 mcg/actuation inhaler Inhale 2 Puffs as instructed two times a day. - montelukast (SINGULAIR) 10 mg tablet TAKE 1 TABLET BY MOUTH DAILY AT BEDTIME - azelastine 0.1% nasal spray Use 2 Sprays in each nostril two times a day as needed. - ondansetron orally disintegrating (ZOFRAN ODT) 4 mg disintegrating tablet Take 1 tablet by mouth every 8 hours as needed for nausea/vomiting. - PREDNISONE ORAL Take by mouth as needed. Burst - fexofenadine (GM) 180 mg tablet Take 180 mg by mo (more content not included)... Normal [facility] COVID AND INFLUENZA A/B AND RSV PCR, ROUTINEon 09-29-2024 SARS-CoV-2 (COVID-19) RNA BULMARO+probe Ql (Unsp spec) SARS-COV-2 (AGENT OF COVID-19) RNA: Not detected INFLUENZA A RNA: Not detected INFLUENZA B RNA: Not detected RESPIRATORY SYNCYTIAL VIRUS (RSV) RNA: Detected Abnormal [facility] Comment on above: Performed By: #### C VFLRS ####[facility] [id number] [place] [address] [place] XR CHEST 2V FRONTAL/LATon XR CHEST 2V FRONTAL/LAT * * *Final Report* * * DATE OF EXAM: Sep 29 2024 7:10PM WOX [id number] - XR CHEST 2V FRONTAL/LAT / PROCEDURE REASON: Acute cough * * * * Physician Interpretation * * * * EXAMINATION: CHEST RADIOGRAPH (2 VIEW FRONTAL and LATERAL) CLINICAL HISTORY: Acute cough MQ: [id number] EXAM DATE/TIME: 09/29/2024 7:10 PM COMPARISON: 12/31/2021 RESULT: Lines, tubes, and devices: None. Lungs and pleura: No consolidation. No lung mass. No pleural effusion. No pneumothorax. Cardiomediastinal silhouette: Normal cardiomediastinal silhouette. Bones and soft tissues: Unremarkable. IMPRESSION: No acute radiographic abnormality. Condominium Property Manager: KELI Transcribe Date/Time: Sep 29 2024 7:13P Dictated by : MICHAEL ARAUJO MD This examination was interpreted and the report reviewed and electronically signed by: MICHAEL ARAUJO MD on Sep 29 2024 7:15PM EST [id number] Normal [facility] XR Chest PA and Lateralon IMPRESSION: No acute radiographic abnormality. Condominium Property Manager: KELI Transcribe Date/Time: Sep 29 2024 7:13P Dictated by : MICHAEL ARAUJO MD This examination was interpreted and the report reviewed and electronically signed by: MICHAEL ARAUJO MD on Sep 29 2024 7:15PM EST DIVISION OF RADIOLOGY * * *Final Report* * * DATE OF EXAM: Sep 29 2024 7:10PM WOX [id number] - XR CHEST 2V FRONTAL/LAT / PROCEDURE REASON: Acute cough * * * * Physician Interpretation * * * * EXAMINATION: CHEST RADIOGRAPH (2 VIEW FRONTAL & LATERAL) CLINICAL HISTORY: Acute cough MQ: XC2_6 EXAM DATE/TIME: 09/29/2024 7:10 PM COMPARISON: 12/31/2021 RESULT: Lines, tubes, and devices: None. Lungs and pleura: No consolidation. No lung mass. No pleural effusion. No pneumothorax. Cardiomediastinal silhouette: Normal cardiomediastinal silhouette. Bones and soft tissues: Unremarkable. DIVISION OF RADIOLOGY Provider, [facility] - 09/29/2024 * * *Final Report* * * DATE OF EXAM: Sep 29 2024 7:10PM WOX 5291 - XR CHEST 2V FRONTAL/LAT / PROCEDURE REASON: Acute cough * * * * Physician Interpretation * * * * EXAMINATION: CHEST RADIOGRAPH (2 VIEW FRONTAL & LATERAL) CLINICAL HISTORY: Acute cough MQ: XC2_6 EXAM DATE/TIME: 09/29/2024 7:10 PM COMPARISON: 12/31/2021 RESULT: Lines, tubes, and devices: None. Lungs and pleura: No consolidation. No lung mass. No pleural effusion. No pneumothorax. Cardiomediastinal silhouette: Normal cardiomediastinal silhouette. Bones and soft tissues: Unremarkable. IMPRESSION IMPRESSION: No acute radiographic abnormality. Condominium Property Manager: KELI Transcribe Date/Time: Sep 29 2024 7:13P Dictated by : MICHAEL ARAUJO MD This examination was interpreted and the report reviewed and electronically signed by: MICHAEL ARAUJO MD on Sep 29 2024 7:15PM EST [facility] Radiology Study observation (narrative) [facility] XR Chest PA and LateralOrder ed By: Ccf Provider on 09-29-2024 [facility] CNOVon 09-19-2024 CNOV Office Visit (SPHTB) -------- BESSIE SOLOMON ([id number]) 1985 F Date Time Provider Department 09/19/24 9:00 AM DEBBIE MUSTAFA SPHTB During your visit today, we recorded the following information about you: Debbie Mustafa PA-C 09/19/2024 5:28 PM Signed DEPARTMENT OF ORTHOPAEDICS September 19, 2024 CC: Left hip, low back pain HPI: Reports since her last visit in February with Dr. Partida her sciatic pain had cleared up by June and she was doing well Reports injuring her left hip/low back 2 weeks ago she reports she was in a bridge type position and pulled up into a more hyperextended bridge and then experienced a significant anterior groin pain 6 out of 10 originally anterior to posterior as well as some symptoms going down her leg. She reports that she has seen a chiropractor since this time and they were doing adjustments he did take some lumbar spine x-rays and advised that she had some bulging disks and felt that this was the reason for her pain and question why she had had any type of hip surgery previously. Reports that there was a leg length discrepancy and she has started wearing a heel lift on the left. She reports increased IBS symptoms and some bowel changes since this time which she had had prior to her original surgery for her hip. She has been performing some of the Calcaneal stretching which has decreased her pain to about a 3 out of 10 She reports an anterior sharp throbbing pain Sitting is the most aggravating position She has resumed using raised toilet seat Aggravating factors - prolonged sitting, prolonged standing - Pins/ needles down left leg Sitting Bowel changes - IBS - had issues previously - new onset of inability to feel if defecated Urinary urgency Used crutches Symptoms similar to prior to surgery Camila - took edge off PAIN EVALUATION 09/13/20242031 Pain Level: 3 Pain Location: Hip-Left Description: Aching;Numbness;Sore;Thr obbing Duration Amount of Time: 2 Duration Units: Weeks Frequency: Continuous Intervention/Comfort measure: Reposition;Relaxation;Co ld;Distractions;Exercise ;Heat;Pillow support;Positioning Comments: it was 01/31-2 wks ago,now 12/01 Past Medical History: PAST MEDICAL HISTORY Diagnosis Date Acetabular labrum tear, left, initial encounter 09/14/2023 Acetabular labrum tear, unspecified laterality, subsequent encounter 09/14/2023 Asthma Constipation Diarrhea Dyspnea on exertion History of echocardiogram 05/13/2021 EF 60-65% RV systolic pressure 25mmHg R atrial pressure 3mmHg History of stress test 05/13/2021 no ischemic electrocardiogrpahic changes noted pt developed chest pressure ehich resolved in recovery phase average exercise capacity for age baseline htn with a normal BP response to exercise Tear of right acetabular labrum 12/14/2023 Family History: FAMILY HISTORY Problem Relation Age of Onset other (cerical cancer) Mother Asthma Sister Heart Maternal Grandmother Medications: biotin 5 mg tab Take 5 mg by mouth once daily. B.animalis,bifid,infanti s,long (PROBIOTIC 4X ORAL) Take by mouth. TEZSPIRE 210 mg/1.91 mL (110 mg/mL) injection INJECT 1 PEN SUBCUTANEOUSLY EVERY 4 WEEKS famotidine (PEPCID) 20 mg tablet Take 1 tablet by mouth daily at bedtime. (Patient not taking: Reported on 09/15/2024) fluticasone-salmeterol HFA (ADVAIR HFA) 230-21 mcg/actuation inhaler Inhale 2 Puffs as instructed two times a day. albuterol (PROVENTIL) 2.5 mg /3 mL (0.083 %) nebulizer solution Use 3 mL via nebulizer every 4 hours as needed for wheezing/shortness of breath. albuterol HFA (VENTOLIN HFA) 90 mcg/actuation inhaler Inhale 2 Puffs as instructed every 4 hours as needed for wheezing/shortness of breath (and before sexertion / exercise). fluticasone (FLONASE) 50 mcg/actuation nasal spray Use 2 Sprays in each nostril once daily. fluticasone-salmeterol HFA (ADVAIR) 230-21 mcg/actuation inhaler Inhale 2 Puffs as instructed two times a day. (Patient not taking: Reported on 08/04/2024) montelukast (SINGULAIR) 10 mg tablet TAKE 1 TABLET BY MOUTH DAILY AT BEDTIME azelastine 0.1% nasal spray Use 2 Sprays in each nostril two times a day as needed. ondansetron orally disintegrating (ZOFRAN ODT) 4 mg disintegrating tablet Take 1 tablet by mouth every 8 hours as needed for nausea/vomiting. PREDNISONE ORAL Take by mouth as needed. Burst fexofenadine (GM) 180 mg tablet Take 180 mg by mouth once daily as needed. cetirizine (ZYRTEC) 10 mg tablet Take 10 mg by mouth once daily. Allergies: ALLERGIES Allergen Reactions Clindamycin Rash, GI Upset Septra [Sulfamethox* Rash, GI Upset Physical Exam: Musculoskeletal Exam: Gait antalgic, Posture: erect and normal. Exam: Lumbar flexion minimal with discomfort Lumbar extension decreased without pain Decreased lumbar lateral flexion and rotation Heel (more content not included)... Normal [facility] XR HIP 3V PELV+ AP/LAT LTon 09-19-2024 XR HIP 3V PELV+ AP/LAT LT * * *Final Report* * * DATE OF EXAM: Sep 19 2024 9:41AM X [id number] - XR HIP 3V PELV+ AP/LAT LT / PROCEDURE REASON: Pain in left hip * * * * Physician Interpretation * * * * HISTORY: Pain in left hip . TECHNIQUE: XR HIP 3V PELV+ AP/LAT LT Laterality: LEFT Number of different views (projections): 4 COMPARISON: Radiographs dated 11/13/2023. RESULT: There is no acute fracture or dislocation. Joint spaces are preserved. There is no soft tissue swelling. No other significant abnormality. IMPRESSION: Normal left hip. Condominium Property Manager: PSCB Transcribe Date/Time: Sep 19 2024 10:09A Dictated by : YARELY HOLCOMB MD This examination was interpreted and the report reviewed and electronically signed by: YARELY HOLCOMB MD on Sep 19 2024 10:09AM EST [id number] Normal [facility] XR Pelvis and Hip - left AP and Lateral frogon 09-19-2024 IMPRESSION: Normal left hip. Condominium Property Manager: PSCB Transcribe Date/Time: Sep 19 2024 10:09A Dictated by : YARELY HOLCOMB MD This examination was interpreted and the report reviewed and electronically signed by: YARELY HOLCOMB MD on Sep 19 2024 10:09AM EST DIVISION OF RADIOLOGY * * *Final Report* * * DATE OF EXAM: Sep 19 2024 9:41AM SHX [id number] - XR HIP 3V PELV+ AP/LAT LT / PROCEDURE REASON: Pain in left hip * * * * Physician Interpretation * * * * HISTORY: Pain in left hip . TECHNIQUE: XR HIP 3V PELV+ AP/LAT LT Laterality: LEFT Number of different views (projections): 4 COMPARISON: Radiographs dated 11/13/2023. RESULT: There is no acute fracture or dislocation. Joint spaces are preserved. There is no soft tissue swelling. No other significant abnormality. DIVISION OF RADIOLOGY Provider, Ana iqbal [place] - 09/19/2024 * * *Final Report* * * DATE OF EXAM: Sep 19 2024 9:41AM SHX 5351 - XR HIP 3V PELV+ AP/LAT LT / PROCEDURE REASON: Pain in left hip * * * * Physician Interpretation * * * * HISTORY: Pain in left hip . TECHNIQUE: XR HIP 3V PELV+ AP/LAT LT Laterality: LEFT Number of different views (projections): 4 COMPARISON: Radiographs dated 11/13/2023. RESULT: There is no acute fracture or dislocation. Joint spaces are preserved. There is no soft tissue swelling. No other significant abnormality. IMPRESSION IMPRESSION: Normal left hip. Condominium Property Manager: KELI Transcribe Date/Time: Sep 19 2024 10:09A Dictated by : YARELY HOLCOMB MD This examination was interpreted and the report reviewed and electronically signed by: YARELY HOLCOMB MD on Sep 19 2024 10:09AM EST [facility] Radiology Study observation (narrative) [facility] XR Pelvis and Hip - left AP and Lateral frogOrdered By: Ccf Provider on 09-19-2024 [facility] BESSIE SOLOMON ([id number]) 1985 F Date Time Provider Department 09/16/24 11:30 AM SC NURSE FAMPWS During your visit today, we recorded the following information about you: Jossie Galvez LPN 09/16/2024 11:14 AM Signed Patient presents for Hepatitis B vaccine. Denies any problems at this time. Tolerated injection well. Jossie Galvez LPN Allergies As of Date: 09/16/2024 Noted Allergy Reaction CLINDAMYCIN 05/09/2010 2 - Rash 8 - GI Upset SEPTRA (SULFAMETHOXAZOLE-TRIMET HO*05/09/2010 2 - Rash 8 - GI Upset Date Reviewed: 09/15/2024 Reviewed by: Janelle Santamaria LPN - Fully Assessed Reason for Visit: Imm/Inj [58] Primary Visit Diagnosis:Encounter for immunization [Z23] Prescriptions as of 09/16/2024 - biotin 5 mg tab Take 5 mg by mouth once daily. - B.animalis,bifid,infanti s,long (PROBIOTIC 4X ORAL) Take by mouth. - TEZSPIRE 210 mg/1.91 mL (110 mg/mL) injection INJECT 1 PEN SUBCUTANEOUSLY EVERY 4 WEEKS - famotidine (PEPCID) 20 mg tablet Take 1 tablet by mouth daily at bedtime. - fluticasone-salmeterol HFA (ADVAIR HFA) 230-21 mcg/actuation inhaler Inhale 2 Puffs as instructed two times a day. - albuterol (PROVENTIL) 2.5 mg /3 mL (0.083 %) nebulizer solution Use 3 mL via nebulizer every 4 hours as needed for wheezing/shortness of breath. - albuterol HFA (VENTOLIN HFA) 90 mcg/actuation inhaler Inhale 2 Puffs as instructed every 4 hours as needed for wheezing/shortness of breath (and before sexertion / exercise). - fluticasone (FLONASE) 50 mcg/actuation nasal spray Use 2 Sprays in each nostril once daily. - fluticasone-salmeterol HFA (ADVAIR) 230-21 mcg/actuation inhaler Inhale 2 Puffs as instructed two times a day. - montelukast (SINGULAIR) 10 mg tablet TAKE 1 TABLET BY MOUTH DAILY AT BEDTIME - azelastine 0.1% nasal spray Use 2 Sprays in each nostril two times a day as needed. - ondansetron orally disintegrating (ZOFRAN ODT) 4 mg disintegrating tablet Take 1 tablet by mouth every 8 hours as needed for nausea/vomiting. - PREDNISONE ORAL Take by mouth as needed. Burst - fexofenadine (GM) 180 mg tablet Take 180 mg by mouth once daily as needed. - cetirizine (ZYRTEC) 10 mg tablet Take 10 mg by mouth once daily. Problem List As Of Date 09/16/2024 Noted Resolved Irritable bowel syndrome with diarrhea [K58.0] 07/19/2010 Chest pain [R07.9] 04/19/2021 12/04/2023 SOB (shortness of breath) [R06.02] 04/19/2021 Essential hypertension, benign [I10] 04/19/2021 12/04/2023 Stress incontinence in female [N39.3] 11/10/2021 Menorrhagia with regular cycle [N92.0] 11/10/2021 Dysmenorrhea [N94.6] 11/10/2021 Cervical polyp [N84.1] 11/10/2021 Severe persistent asthma without complication [*05/31/2022 Seasonal allergic rhinitis due to pollen [J30.1]05/31/2022 Chronic rhinitis [J31.0] 05/31/2022 Epigastric pain [R10.13] 07/23/2023 Nausea [R11.0] 07/23/2023 Rectal bleeding [K62.5] 07/23/2023 Acetabular labrum tear, unspecified laterality,*09/14/2023 07/18/2024 Acetabular labrum tear, left, initial encounter*09/14/2023 07/18/2024 Tear of right acetabular labrum [S73.191A] 12/14/2023 07/18/2024 Encounter Status:Closed by JOSSIE GALVEZ on 09/16/24 [facility] CNOVon 09-15-2024 CNOV Office Visit (DERMSO ) -------- BESSIE SOLOMON ([id number]) 1985 F Date Time Provider Department 09/15/24 2:50 PM BERNARD ESTRADA DERMSO During your visit today, we recorded the following information about you: Bernard Estrada MD 09/15/2024 3:51 PM Signed Subjective Bessie Solomon is a 39-year-old W female presenting for evaluation of a lesion above the right naris and multiple moles. Bessie reports a persistent lesion above the right naris, which she has attempted to treat with [id number] wart treatments without success. Over the past year, the lesion has become increasingly pruritic and burning. She has a history of multiple warts in childhood, which were treated with cryotherapy. During a recent physical examination, her primary care provider noted multiple moles and recommended further evaluation. Bessie reports some of these moles are new, and a few on her back have changed significantly. One mole has appeared inflamed for the past 3 years. She has a family history of skin cancer, with her maternal grandfather having multiple cancerous lesions removed from his face. She has only used a tanning bed once and recalls a blistering sunburn in childhood. 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 Bessie also reports thinning hair(especially along top), which has worsened over time. She has been using Nioxin for the past year, noting that while her hair loss has not improved, it has not worsened. She has a family history of thinning hair on her father's side. She denies pruritus or flaking of the scalp. ROS:Constitutional: (+) weight loss Head: (+) hair thinning Skin: (+) pruritus and burning of skin lesion above right nostril, (+) multiple nevi (some changing), (+) lesion on back resembling angry zit for 3 years, (+) rosacea, (+) skin sensitivity (breakouts with certain products) Hematologic/Lymphatic: (+) easy bruising Objective Last menstrual period 05/21/2024. General: No acute distress. Suspicious lesions noted on: A-L mid posterior lateral thigh(1.3 cm) Skin: face w/ multiple fibrous papules; some hyperpigmented, noted preauricularly and anteriorly; lentigines observed; rosacea evident along cheeks; brown macules on left superior eyebrow; fibrous papules on right medial forehead and right lower eyelid; seborrheic keratoses on right lateral cheek; multiple congenital nevi on arms; tattoos on medial left forearm, right and left upper back, and mid-upper back; seborrheic keratoses on back; skin tags on back; hyperpigmented skin tags on left medial chest and epigastric region; striae in periumbilical region; intradermal nevi on right lateral upper breast; lesion on left mid-posterior lateral thigh. SKIN: A full skin exam was performed including the scalp, face, head and neck, chest, abdomen, flanks, back, buttocks, gluteal cleft and anus, perineum and groin, all four extremities, hands and feet. There were no other worrisome lesions noted. ASSESSMENT/PLAN: # Screening for malignant neoplasm of skin (Z12.83) - Conducted a thorough skin examination; no lesions suspicious for malignancy were identified. Sun protection reviewed. Recommend sunscreen with Zinc or Titanium daily and sun protective clothing. Use tinted screens w/ iron oxide(>3%). Reviewed ABCD's of changing moles, self skin exam. Return to clinic if any new or changing lesions noted. # Family history of malignant neoplasm of skin (Z80.8) - Maternal grandfather had multiple facial lesions excised, all reportedly cancerous. 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 - No signs of dysplasia or malignancy noted. # Fibrous papule of face (D23.30) - Multiple fibrous papules identified on the face, including a 5 mm hyperpigmented papule preauricularly and a 4 mm papule on the right medial forehead. - Discussed cosmetic removal options, including potential for scarring. # Rosacea (L71.9) - Erythema and telangiectasia noted on the cheeks. - Patient has ocular rosacea as diagnosed by an automatic dry starch operator. - Discussed topical treatments; patient declined due to cost. # Seborrheic keratosis (L82.1) - Multiple seborrheic keratoses identified on the right lateral cheek and back. - No treatment necessary unless symptomatic or for cosmetic reasons. 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 - No signs of malignancy. # Striae atrophicae (L90.6) - Moderate striae observed in the periumbilical region. - No treatment necessary. # Extensive tattoos (L81.8) - Multiple tattoos noted on the upper back and forearms. - No issues related to tattoos observed. # Atypical nevus (D22.9) -L mid posterior thigh; r/o (more content not included)... Normal [facility] CNOV Office Visit (ENWSTR ) -------- BESSIE SOLOMON ([id number]) 1985 F Date Time Provider Department 09/15/24 8:00 AM JENNIFFER CHIU During your visit today, we recorded the following information about you: Temperature Pulse Weight Height 98.8 degrees 72/minute 84 kg 1.651 m Last Period 09/04/24 Jenniffer Chiu MD 09/15/2024 11:26 AM Signed [facility] Initial Clinic Visit Note CONSULTING PROVIDER: Dariusz Ward APRN. WAREHOUSE REPRESENTATIVE Referred for: TSH elevation My final recommendations will be communicated back to the requesting provider by way of shared Medical record or a letter via [place] mail Subjective: Bessie Solomon is a 39 year old female presenting after referral from her PCP for TSH elevation. She also underwent Thyroid US before this visit Patient never had any thyroid issue or was on thyroid medications in the past General symptoms reported today: Fatigue: Yes, for a long time Menstrual irregularities: No Change in bowel habits: No Temperature intolerance: cold intolerance Stretch goyal from , wide enough, pale/skin color, reports sometimes they appear angry No hx of smoking, no hx of radiation FH: paternal uncle paternal aunt had thyroid cancer, followed by thyroid surgery and DENNEY. Other paternal aunt thyroid issue REVIEW OF SYSTEMS: 10 point ROS was reviewed and negative unless indicated in the HPI ALLERGIES: ALLERGIES Allergen Reactions Clindamycin Rash, GI Upset Septra [Sulfamethox* Rash, GI Upset MEDICATIONS: Current Outpatient Medications on File Prior to Visit Medication Sig biotin 5 mg tab Take 5 mg by mouth once daily. B.animalis,bifid,infanti s,long (PROBIOTIC 4X ORAL) Take by mouth. TEZSPIRE 210 mg/1.91 mL (110 mg/mL) injection INJECT 1 PEN SUBCUTANEOUSLY EVERY 4 WEEKS fluticasone-salmeterol HFA (ADVAIR HFA) 230-21 mcg/actuation inhaler Inhale 2 Puffs as instructed two times a day. albuterol (PROVENTIL) 2.5 mg /3 mL (0.083 %) nebulizer solution Use 3 mL via nebulizer every 4 hours as needed for wheezing/shortness of breath. albuterol HFA (VENTOLIN HFA) 90 mcg/actuation inhaler Inhale 2 Puffs as instructed every 4 hours as needed for wheezing/shortness of breath (and before sexertion / exercise). fluticasone (FLONASE) 50 mcg/actuation nasal spray Use 2 Sprays in each nostril once daily. montelukast (SINGULAIR) 10 mg tablet TAKE 1 TABLET BY MOUTH DAILY AT BEDTIME azelastine 0.1% nasal spray Use 2 Sprays in each nostril two times a day as needed. ondansetron orally disintegrating (ZOFRAN ODT) 4 mg disintegrating tablet Take 1 tablet by mouth every 8 hours as needed for nausea/vomiting. PREDNISONE ORAL Take by mouth as needed. Burst fexofenadine (GM) 180 mg tablet Take 180 mg by mouth once daily as needed. cetirizine (ZYRTEC) 10 mg tablet Take 10 mg by mouth once daily. famotidine (PEPCID) 20 mg tablet Take 1 tablet by mouth daily at bedtime. (Patient not taking: Reported on 09/15/2024) ofloxacin (OCUFLOX) 0.3 % ophthalmic solution Use 1 Drop in the right eye four times daily. (Patient not taking: Reported on 08/04/2024) keTORolac (ACULAR) 0.5 % ophthalmic solution Use 1 Drop in both eyes four times daily. (Patient not taking: Reported on 08/04/2024) fluticasone-salmeterol HFA (ADVAIR) 230-21 mcg/actuation inhaler Inhale 2 Puffs as instructed two times a day. (Patient not taking: Reported on 08/04/2024) No current facility-administered medications on file prior to visit. PAST MEDICAL HISTORY: PAST MEDICAL HISTORY Diagnosis Date Acetabular labrum tear, left, initial encounter 09/14/2023 Acetabular labrum tear, unspecified laterality, subsequent encounter 09/14/2023 Asthma Constipation Diarrhea Dyspnea on exertion History of echocardiogram 05/13/2021 EF 60-65% RV systolic pressure 25mmHg R atrial pressure 3mmHg History of stress test 05/13/2021 no ischemic electrocardiogrpahic changes noted pt developed chest pressure ehich resolved in recovery phase average exercise capacity for age baseline htn with a normal BP response to exercise Tear of right acetabular labrum 12/14/2023 PAST SURGICAL HISTORY: PAST SURGICAL HISTORY Procedure Laterality Date ABDOMINAL SURGERY HX APPENDECTOMY CHOLECYSTECTOMY 09/24/2002 Cholecystectomy COLONOSCOPY 07/23/2023 EGD 07/23/2023 LAPS ABD PRTMANDOMENTUM DX W/WO SPEC BR/WA SPX 11/22/2008 Laparoscopy and DANDC OPEN HIP LABRAL REPAIR (COMP [id number]) Left 12/13/2023 OPEN HIP LABRAL REPAIR (COMP [id number]) Right 11/01/2023 FAMILY HISTORY: FAMILY HISTORY Problem Relation Age of Onset other (cerical cancer) Mother Asthma Sister Heart Maternal Grandmother SOCIAL HISTORY: Social History Tobacco Use Smoking status: Never Passive exposure: Never Smokeless tobacco: Never Vaping Use Vaping status: Never Used Substance Use Topi (more content not included)... 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 Condominium Property Manager: KELI Transcribe Date/Time: Sep 01 2024 3:15P Dictated by : RYAN MCKEON MD This examination was interpreted and the report reviewed and electronically signed by: RYAN MCKEON MD on Sep 01 2024 3:24PM [facility] DIVISION OF RADIOLOGY * * *Final Report* * * DATE OF EXAM: Sep 01 2024 3:04PM [facility] [id number] - MRI BRAIN WO/W IVCON / PROCEDURE REASON: multiple diagnoses * * * * Physician Interpretation * * * * EXAMINATION: MRI BRAIN WO/W IVCON CLINICAL HISTORY: capillary telangiectasia TECHNIQUE: Routine brain MRI protocol without and with contrast including diffusion images. MQ: MRBWOW_2 Contrast: 8.5 mL Elucirem IV COMPARISON: Brain MRI 05/24/2020. RESULT: Acute Change: There is no evidence of restricted diffusion to suggest an acute infarct. Hemorrhage: No evidence of prior parenchymal hemorrhage on the susceptibility weighted images. 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 There is no other intracranial lesion or abnormal enhancement. There is no mass effect, midline shift or herniation. Chronic Change: The white matter is within normal limits of signal intensity for age. Parenchyma: No significant volume loss for age. The brain parenchyma is otherwise within normal limits of signal intensity and morphology. Ventricles: Normal caliber and morphology. Skull Base: Hypothalamic and pituitary region are grossly normal. Craniocervical junction is normal. No significant marrow replacement process. Vasculature: Major intracranial arterial structures, and dural venous sinuses show typical flow void, suggesting patency by spin echo criteria. Other: The visualized paranasal sinuses and mastoid air cells are clear. The orbits and extracranial soft tissues are unremarkable. DIVISION OF RADIOLOGY Provider, [facility] - 09/01/2024 * * *Final Report* * * DATE OF EXAM: Sep 01 2024 3:04PM [facility] 0295 - MRI BRAIN WO/W IVCON / PROCEDURE REASON: multiple diagnoses * * * * Physician Interpretation * * * * EXAMINATION: MRI BRAIN WO/W IVCON CLINICAL HISTORY: capillary telangiectasia TECHNIQUE: Routine brain MRI protocol without and with contrast including diffusion images. MQ: MRBWOW_2 Contrast: 8.5 mL Elucirem IV COMPARISON: Brain MRI 05/24/2020. RESULT: Acute Change: There is no evidence of restricted diffusion to suggest an acute infarct. Hemorrhage: No evidence of prior parenchymal hemorrhage on the susceptibility weighted images. 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 There is no other intracranial lesion or abnormal enhancement. There is no mass effect, midline shift or herniation. Chronic Change: The white matter is within normal limits of signal intensity for age. Parenchyma: No significant volume loss for age. The brain parenchyma is otherwise within normal limits of signal intensity and morphology. Ventricles: Normal caliber and morphology. Skull Base: Hypothalamic and pituitary region are grossly normal. Craniocervical junction is normal. No significant marrow replacement process. Vasculature: Major intracranial arterial structures, and dural venous sinuses show typical flow void, suggesting patency by spin echo criteria. Other: The visualized paranasal sinuses and mastoid air cells are clear. The orbits and extracranial soft tissues are unremarkable. 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 Condominium Property Manager: KELI Transcribe Date/Time: Sep 01 2024 3:15P Dictated by : RYAN MCKEON MD This examination was interpreted and the report reviewed and electronically signed by: RYAN MCKEON MD on Sep 01 2024 3:24PM EST [facility] Radiology Study observation (narrative) [facility] MR Brain WO and W contrast I VOrdered By: [facility] Provider on 09-01-2024 [facility] MRI BRAIN WO/W IVCONon 09-01 MRI BRAIN WO/W IVCON * * *Final Report* * * DATE OF EXAM: Sep 01 2024 3:04PM [facility] 0295 - MRI BRAIN WO/W IVCON / PROCEDURE REASON: multiple diagnoses * * * * Physician Interpretation * * * * EXAMINATION: MRI BRAIN WO/W IVCON CLINICAL HISTORY: capillary telangiectasia TECHNIQUE: Routine brain MRI protocol without and with contrast including diffusion images. MQ: MRBWOW_2 Contrast: 8.5 mL Elucirem IV COMPARISON: Brain MRI 05/24/2020. RESULT: Acute Change: There is no evidence of restricted diffusion to suggest an acute infarct. Hemorrhage: No evidence of prior parenchymal hemorrhage on the susceptibility weighted images. 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 There is no other intracranial lesion or abnormal enhancement. There is no mass effect, midline shift or herniation. Chronic Change: The white matter is within normal limits of signal intensity for age. Parenchyma: No significant volume loss for age. The brain parenchyma is otherwise within normal limits of signal intensity and morphology. Ventricles: Normal caliber and morphology. Skull Base: Hypothalamic and pituitary region are grossly normal. Craniocervical junction is normal. No significant marrow replacement process. Vasculature: Major intracranial arterial structures, and dural venous sinuses show typical flow void, suggesting patency by spin echo criteria. Other: The visualized paranasal sinuses and mastoid air cells are clear. The orbits and extracranial soft tissues are unremarkable. 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 Condominium Property Manager: KELI Transcribe Date/Time: Sep 01 2024 3:15P Dictated by : RYAN MCKEON MD This examination was interpreted and the report reviewed and electronically signed by: RYAN MCKEON MD on Sep 01 2024 3:24PM EST [id number] [facility] -------- BESSIE SOLOMON ([id number]) 1985 F Date Time Provider Department 08/28/24 NEUROLOGY PROVIDER [facility] During your visit today, we recorded the following information about you: Alexandra Mckenzie 08/28/2024 3:27 PM Signed Upcoming MR on 09.01.24 See 08.15.24 Sydney José D MD Phone Encounter for follow up appt request. Last seen 07.27.21 Allergies As of Date: 08/28/2024 Noted Allergy Reaction CLINDAMYCIN 05/09/2010 2 - Rash 8 - GI Upset SEPTRA (SULFAMETHOXAZOLE-TRIMET HO*05/09/2010 2 - Rash 8 - GI Upset Date Reviewed: 08/04/2024 Reviewed by: Krystle Love LPN - Fully Assessed Reason for Visit: Future Appointment [256] Cmt: Re-Establishing Care [place] EV [facility] 30 Prescriptions as of 08/28/2024 - famotidine (PEPCID) 20 mg tablet Take 1 tablet by mouth daily at bedtime. - ofloxacin (OCUFLOX) 0.3 % ophthalmic solution Use 1 Drop in the right eye four times daily. - keTORolac (ACULAR) 0.5 % ophthalmic solution Use 1 Drop in both eyes four times daily. - fluticasone-salmeterol HFA (ADVAIR HFA) 230-21 mcg/actuation inhaler Inhale 2 Puffs as instructed two times a day. - albuterol (PROVENTIL) 2.5 mg /3 mL (0.083 %) nebulizer solution Use 3 mL via nebulizer every 4 hours as needed for wheezing/shortness of breath. - albuterol HFA (VENTOLIN HFA) 90 mcg/actuation inhaler Inhale 2 Puffs as instructed every 4 hours as needed for wheezing/shortness of breath (and before sexertion / exercise). - fluticasone (FLONASE) 50 mcg/actuation nasal spray Use 2 Sprays in each nostril once daily. - tezepelumab-ekko (TEZSPIRE) 210 mg/1.91 mL (110 mg/mL) injection INJECT 210MG SUBCUTANEOUSLY EVERY 4 WEEKS - fluticasone-salmeterol HFA (ADVAIR) 230-21 mcg/actuation inhaler Inhale 2 Puffs as instructed two times a day. - montelukast (SINGULAIR) 10 mg tablet TAKE 1 TABLET BY MOUTH DAILY AT BEDTIME - azelastine 0.1% nasal spray Use 2 Sprays in each nostril two times a day as needed. - ondansetron orally disintegrating (ZOFRAN ODT) 4 mg disintegrating tablet Take 1 tablet by mouth every 8 hours as needed for nausea/vomiting. - PREDNISONE ORAL Take by mouth as needed. Burst - fexofenadine (GM) 180 mg tablet Take 180 mg by mouth once daily as needed. - cetirizine (ZYRTEC) 10 mg tablet Take 10 mg by mouth once daily. Problem List As Of Date 08/28/2024 Noted Resolved Irritable bowel syndrome with diarrhea [K58.0] 07/19/2010 Chest pain [R07.9] 04/19/2021 12/04/2023 SOB (shortness of breath) [R06.02] 04/19/2021 Essential hypertension, benign [I10] 04/19/2021 12/04/2023 Stress incontinence in female [N39.3] 11/10/2021 Menorrhagia with regular cycle [N92.0] 11/10/2021 Dysmenorrhea [N94.6] 11/10/2021 Cervical polyp [N84.1] 11/10/2021 Severe persistent asthma without complication [*05/31/2022 Seasonal allergic rhinitis due to pollen [J30.1]05/31/2022 Chronic rhinitis [J31.0] 05/31/2022 Epigastric pain [R10.13] 07/23/2023 Nausea [R11.0] 07/23/2023 Rectal bleeding [K62.5] 07/23/2023 Acetabular labrum tear, unspecified laterality,*09/14/2023 07/18/2024 Acetabular labrum tear, left, initial encounter*09/14/2023 07/18/2024 Tear of right acetabular labrum [S73.191A] 12/14/2023 07/18/2024 Encounter Status:Closed by ALEXANDRA MCKENZIE on 08/28/24 [facility] Nurse Visit ([facility]) -------- BESSIE SOLOMON ([id number]) 1985 F Date Time Provider Department 08/18/24 4:00 PM [facility] During your visit today, we recorded the following information about you: Jossie Galvez LPN 08/18/2024 4:13 PM Signed Patient presents for Hepatitis B vaccine. Denies any problems at this time. Tolerated injection well. Jossie Galvez LPN Allergies As of Date: 08/18/2024 Noted Allergy Reaction CLINDAMYCIN 05/09/2010 2 - Rash 8 - GI Upset SEPTRA (SULFAMETHOXAZOLE-TRIMET HO*05/09/2010 2 - Rash 8 - GI Upset Date Reviewed: 08/04/2024 Reviewed by: Krystle Love LPN - Fully Assessed Reason for Visit: Imm/Inj [58] Primary Visit Diagnosis:Encounter for immunization [Z23] Prescriptions as of 08/18/2024 - famotidine (PEPCID) 20 mg tablet Take 1 tablet by mouth daily at bedtime. - ofloxacin (OCUFLOX) 0.3 % ophthalmic solution Use 1 Drop in the right eye four times daily. - keTORolac (ACULAR) 0.5 % ophthalmic solution Use 1 Drop in both eyes four times daily. - fluticasone-salmeterol HFA (ADVAIR HFA) 230-21 mcg/actuation inhaler Inhale 2 Puffs as instructed two times a day. - albuterol (PROVENTIL) 2.5 mg /3 mL (0.083 %) nebulizer solution Use 3 mL via nebulizer every 4 hours as needed for wheezing/shortness of breath. - albuterol HFA (VENTOLIN HFA) 90 mcg/actuation inhaler Inhale 2 Puffs as instructed every 4 hours as needed for wheezing/shortness of breath (and before sexertion / exercise). - fluticasone (FLONASE) 50 mcg/actuation nasal spray Use 2 Sprays in each nostril once daily. - tezepelumab-ekko (TEZSPIRE) 210 mg/1.91 mL (110 mg/mL) injection INJECT 210MG SUBCUTANEOUSLY EVERY 4 WEEKS - fluticasone-salmeterol HFA (ADVAIR) 230-21 mcg/actuation inhaler Inhale 2 Puffs as instructed two times a day. - montelukast (SINGULAIR) 10 mg tablet TAKE 1 TABLET BY MOUTH DAILY AT BEDTIME - azelastine 0.1% nasal spray Use 2 Sprays in each nostril two times a day as needed. - ondansetron orally disintegrating (ZOFRAN ODT) 4 mg disintegrating tablet Take 1 tablet by mouth every 8 hours as needed for nausea/vomiting. - PREDNISONE ORAL Take by mouth as needed. Burst - fexofenadine (GM) 180 mg tablet Take 180 mg by mouth once daily as needed. - cetirizine (ZYRTEC) 10 mg tablet Take 10 mg by mouth once daily. Problem List As Of Date 08/18/2024 Noted Resolved Irritable bowel syndrome with diarrhea [K58.0] 07/19/2010 Chest pain [R07.9] 04/19/2021 12/04/2023 SOB (shortness of breath) [R06.02] 04/19/2021 Essential hypertension, benign [I10] 04/19/2021 12/04/2023 Stress incontinence in female [N39.3] 11/10/2021 Menorrhagia with regular cycle [N92.0] 11/10/2021 Dysmenorrhea [N94.6] 11/10/2021 Cervical polyp [N84.1] 11/10/2021 Severe persistent asthma without complication [*05/31/2022 Seasonal allergic rhinitis due to pollen [J30.1]05/31/2022 Chronic rhinitis [J31.0] 05/31/2022 Epigastric pain [R10.13] 07/23/2023 Nausea [R11.0] 07/23/2023 Rectal bleeding [K62.5] 07/23/2023 Acetabular labrum tear, unspecified laterality,*09/14/2023 07/18/2024 Acetabular labrum tear, left, initial encounter*09/14/2023 07/18/2024 Tear of right acetabular labrum [S73.191A] 12/14/2023 07/18/2024 Encounter Status:Closed by JOSSIE GALVEZ on 08/18/24 [facility] -------- BESSIE SOLOMON ([id number]) 1985 F Date Time Provider Department 08/15/24 SYDNEY JOSÉ [facility] During your visit today, we recorded the following information about you: Farnaz Jaja 08/15/2024 11:08 AM Signed CV PHONE Name of caller : Bessie Relationship to patient : Self If not self Will need patient permission to release results or disclose health information with called documented in fyi. Patient identified by Name and Date of . ( Bessie Solomon, 1985). Yes Number to return call [phone] Reason for Call: Patient is calling with a question. Per her last visit 07/2021 it was recommended to follow up with Headache Neurology with no mention of repeat imaging. Does she need to complete MRI WO/W IVCON ordered in 02/2024? Patient advised current not experiencing any symptoms. Please call [phone] to confirm instructions. Thank you calling [facility] [place]. You will receive a return call within 48 hours ( or 2 business days if close to the weekend). If you feel that this is an urgent issue and needs immediate attention, it is recommended that you contact your primary care provider office or proceed to your nearest Urgent Care Center of Emergency Room ED for evaluation/treatment. Larisa Trammell RN 08/15/2024 11:19 AM Signed Spoke with Bessie, I let her know she is due for MRI. Gave her numbers to call and schedule imaging and appointment with [facility]. She verbalized understanding. Allergies As of Date: 08/15/2024 Noted Allergy Reaction CLINDAMYCIN 05/09/2010 2 - Rash 8 - GI Upset SEPTRA (SULFAMETHOXAZOLE-TRIMET HO*05/09/2010 2 - Rash 8 - GI Upset Date Reviewed: 08/04/2024 Reviewed by: Krystle Love LPN - Fully Assessed Reason for Visit: Patient Question [9977] Prescriptions as of 09/18/2024 - biotin 5 mg tab Take 5 mg by mouth once daily. - B.animalis,bifid,infanti s,long (PROBIOTIC 4X ORAL) Take by mouth. - TEZSPIRE 210 mg/1.91 mL (110 mg/mL) injection INJECT 1 PEN SUBCUTANEOUSLY EVERY 4 WEEKS - famotidine (PEPCID) 20 mg tablet Take 1 tablet by mouth daily at bedtime. - fluticasone-salmeterol HFA (ADVAIR HFA) 230-21 mcg/actuation inhaler Inhale 2 Puffs as instructed two times a day. - albuterol (PROVENTIL) 2.5 mg /3 mL (0.083 %) nebulizer solution Use 3 mL via nebulizer every 4 hours as needed for wheezing/shortness of breath. - albuterol HFA (VENTOLIN HFA) 90 mcg/actuation inhaler Inhale 2 Puffs as instructed every 4 hours as needed for wheezing/shortness of breath (and before sexertion / exercise). - fluticasone (FLONASE) 50 mcg/actuation nasal spray Use 2 Sprays in each nostril once daily. - fluticasone-salmeterol HFA (ADVAIR) 230-21 mcg/actuation inhaler Inhale 2 Puffs as instructed two times a day. - montelukast (SINGULAIR) 10 mg tablet TAKE 1 TABLET BY MOUTH DAILY AT BEDTIME - azelastine 0.1% nasal spray Use 2 Sprays in each nostril two times a day as needed. - ondansetron orally disintegrating (ZOFRAN ODT) 4 mg disintegrating tablet Take 1 tablet by mouth every 8 hours as needed for nausea/vomiting. - PREDNISONE ORAL Take by mouth as needed. Burst - fexofenadine (GM) 180 mg tablet Take 180 mg by mouth once daily as needed. - cetirizine (ZYRTEC) 10 mg tablet Take 10 mg by mouth once daily. Problem List As Of Date 08/15/2024 Noted Resolved Irritable bowel syndrome with diarrhea [K58.0] 07/19/2010 Chest pain [R07.9] 04/19/2021 12/04/2023 SOB (shortness of breath) [R06.02] 04/19/2021 Essential hypertension, benign [I10] 04/19/2021 12/04/2023 Stress incontinence in female [N39.3] 11/10/2021 Menorrhagia with regular cycle [N92.0] 11/10/2021 Dysmenorrhea [N94.6] 11/10/2021 Cervical polyp [N84.1] 11/10/2021 Severe persistent asthma without complication [*05/31/2022 Seasonal allergic rhinitis due to pollen [J30.1]05/31/2022 Chronic rhinitis [J31.0] 05/31/2022 Epigastric pain [R10.13] 07/23/2023 Nausea [R11.0] 07/23/2023 Rectal bleeding [K62.5] 07/23/2023 Acetabular labrum tear, unspecified laterality,*09/14/2023 07/18/2024 Acetabular labrum tear, left, initial encounter*09/14/2023 07/18/2024 Tear of right acetabular labrum [S73.191A] 12/14/2023 07/18/2024 Encounter Status:Closed by JAJA NERI on 09/18/24 Normal [facility] DBT Breast - right diagnosti c for implanton 08-08-2024 IMPRESSION: There is no mammographic or sonographic evidence of malignancy. Return to annual screening mammogram is recommended. Annual mammogram will be due in 1 year. BI-RADS Category 2: Benign RISK: Based on the Tyrer-Cuzick (TC) risk assessment model, this patient has a 6.3% lifetime risk of developing breast cancer, meaning they are at average risk for developing breast cancer. However, this is only an estimate based on available history provided on the patient's questionnaire. We encourage all patients to talk with their providers about these results, further recommendations for managing breast health, and appropriate supplemental screening options if the patient has dense breast tissue. Interpreting Radiologist: Swapna Brooks M.D. Electronically signed on: 08/08/2024 Condominium Property Manager: MELISSA Transcribe Date/Time: Aug 08 2024 9:12A Dictated by : SWAPNA BROOKS MD This examination was interpreted and the report reviewed and electronically signed by: SWAPNA BROOKS MD on Aug 08 2024 10:20AM [facility] DIVISION OF RADIOLOGY * * *Final Report* * * DATE OF EXAM: Aug 08 2024 9:13AM [facility] [place] ANGEL DIAG W KALI RT / PROCEDURE REASON: Abnormal mammogram * * * * Physician Interpretation * * * * RESULT: [place] [address] HISTORY: Patient is 39 years old and is seen for diagnostic evaluation of abnormal mammogram in both breasts. Patient states no personal history of breast cancer. Patient states no personal history of other cancers. COMPARISON STUDIES: The present examination has been compared to prior imaging studies dated 07/06/2023 (mammogram) and 07/18/2024 (mammogram). MAMMOGRAM TECHNIQUE: The study was acquired using full field digital technology and interpreted from soft copy. Digital Breast Tomosynthesis (DBT) images were obtained and used to assist in the interpretation of this examination. Computer-aided detection was utilized by the radiologist in the interpretation of this examination. MAMMOGRAM FINDINGS: There are scattered areas of fibroglandular density. There is a focal asymmetry in the upper outer quadrant of the right breast. No suspicious masses, calcifications or other abnormalities are seen in the right breast. ULTRASOUND TECHNIQUE: Targeted ultrasound of the indicated area was performed. Lowry scale images were saved. ULTRASOUND FINDINGS: Ultrasound demonstrates a simple cyst measuring 0.3 x 0.2 x 0.3 cm in the right breast at 11 o'clock located 6 cm from the nipple. Internal echotexture is anechoic. There is posterior acoustic enhancement. Color flow imaging demonstrates vascularity is not present. There are no suspicious findings in the imaged area. DIVISION [facility]IOLOGY [facility] * * *Final Report* * * DATE OF EXAM: Aug 08 2024 9:13AM [facility] 0629 - ANGEL DIAG W KALI RT / PROCEDURE REASON: Abnormal mammogram * * * * Physician Interpretation * * * * RESULT: [address] [place] [id number] HISTORY: Patient is 39 years old and is seen for diagnostic evaluation of abnormal mammogram in both breasts. Patient states no personal history of breast cancer. Patient states no personal history of other cancers. COMPARISON STUDIES: The present examination has been compared to prior imaging studies dated 07/06/2023 (mammogram) and 07/18/2024 (mammogram). MAMMOGRAM TECHNIQUE: The study was acquired using full field digital technology and interpreted from soft copy. Digital Breast Tomosynthesis (DBT) images were obtained and used to assist in the interpretation of this examination. Computer-aided detection was utilized by the radiologist in the interpretation of this examination. MAMMOGRAM FINDINGS: There are scattered areas of fibroglandular density. There is a focal asymmetry in the upper outer quadrant of the right breast. No suspicious masses, calcifications or other abnormalities are seen in the right breast. ULTRASOUND TECHNIQUE: Targeted ultrasound of the indicated area was performed. Lowry scale images were saved. ULTRASOUND FINDINGS: Ultrasound demonstrates a simple cyst measuring 0.3 x 0.2 x 0.3 cm in the right breast at 11 o'clock located 6 cm from the nipple. Internal echotexture is anechoic. There is posterior acoustic enhancement. Color flow imaging demonstrates vascularity is not present. There are no suspicious findings in the imaged area. IMPRESSION IMPRESSION: There is no mammographic or sonographic evidence of malignancy. Return to annual screening mammogram is recommended. Annual mammogram will be due in 1 year. BI-RADS Category 2: Benign RISK: Based on the Tyrer-Cuzick (TC) risk assessment model, this patient has a 6.3% lifetime risk of developing breast cancer, meaning they are at average risk for developing breast cancer. However, this is only an estimate based on available history provided on the patient's questionnaire. We encourage all patients to talk with their providers about these results, further recommendations for managing breast health, and appropriate supplemental screening options if the patient has dense breast tissue. Interpreting Radiologist: Swapna Brooks M.D. Electronically signed on: 08/08/2024 Condominium Property Manager: MELISSA Transcribe Date/Time: Aug 08 2024 9:12A Dictated by : SWAPNA BROOKS MD This examination was interpreted and the report reviewed and electronically signed by: SWAPNA BROOKS MD on Aug 08 2024 10:20AM [facility] ANGEL DIAG W KALI RTon 11-15-2 024 ANGEL DIAG W KALI RT * * *Final Report* * * DATE OF EXAM: Aug 08 2024 9:13AM [facility] [place] ANGEL DIAG W KALI RT / PROCEDURE REASON: Abnormal mammogram * * * * Physician Interpretation * * * * RESULT: [place] [address] HISTORY: Patient is 39 years old and is seen for diagnostic evaluation of abnormal mammogram in both breasts. Patient states no personal history of breast cancer. Patient states no personal history of other cancers. COMPARISON STUDIES: The present examination has been compared to prior imaging studies dated 07/06/2023 (mammogram) and 07/18/2024 (mammogram). MAMMOGRAM TECHNIQUE: The study was acquired using full field digital technology and interpreted from soft copy. Digital Breast Tomosynthesis (DBT) images were obtained and used to assist in the interpretation of this examination. Computer-aided detection was utilized by the radiologist in the interpretation of this examination. MAMMOGRAM FINDINGS: There are scattered areas of fibroglandular density. There is a focal asymmetry in the upper outer quadrant of the right breast. No suspicious masses, calcifications or other abnormalities are seen in the right breast. ULTRASOUND TECHNIQUE: Targeted ultrasound of the indicated area was performed. Lowry scale images were saved. ULTRASOUND FINDINGS: Ultrasound demonstrates a simple cyst measuring 0.3 x 0.2 x 0.3 cm in the right breast at 11 o'clock located 6 cm from the nipple. Internal echotexture is anechoic. There is posterior acoustic enhancement. Color flow imaging demonstrates vascularity is not present. There are no suspicious findings in the imaged area. IMPRESSION: There is no mammographic or sonographic evidence of malignancy. Return to annual screening mammogram is recommended. Annual mammogram will be due in 1 year. BI-RADS Category 2: Benign RISK: Based on the Tyrer-Cuzick (TC) risk assessment model, this patient has a 6.3% lifetime risk of developing breast cancer, meaning they are at average risk for developing breast cancer. However, this is only an estimate based on available history provided on the patient's questionnaire. We encourage all patients to talk with their providers about these results, further recommendations for managing breast health, and appropriate supplemental screening options if the patient has dense breast tissue. Interpreting Radiologist: Swapna Brooks M.D. Electronically signed on: 08/08/2024 Condominium Property Manager: MELISSA Transcribe Date/Time: Aug 08 2024 9:12A Dictated by : SWAPNA BROOKS MD This examination was interpreted and the report reviewed and electronically signed by: SWAPNA BROOKS MD on Aug 08 2024 10:20AM EST [id number] Normal [facility] US BREAST LTD RTon 08-08 [facility] Inside BREAST LTD RT * * *Final Report* * * DATE OF EXAM: Aug 08 2024 10:09AM [facility] [facility] US BREAST LTD RT / PROCEDURE REASON: Abnormal mammogram * * * * Physician Interpretation * * * * RESULT: [address] [place] [address] HISTORY: Patient is 39 years old and is seen for diagnostic evaluation of abnormal mammogram in both breasts. Patient states no personal history of breast cancer. Patient states no personal history of other cancers. COMPARISON STUDIES: The present examination has been compared to prior imaging studies dated 07/06/2023 (mammogram) and 07/18/2024 (mammogram). MAMMOGRAM TECHNIQUE: The study was acquired using full field digital technology and interpreted from soft copy. Digital Breast Tomosynthesis (DBT) images were obtained and used to assist in the interpretation of this examination. Computer-aided detection was utilized by the radiologist in the interpretation of this examination. MAMMOGRAM FINDINGS: There are scattered areas of fibroglandular density. There is a focal asymmetry in the upper outer quadrant of the right breast. No suspicious masses, calcifications or other abnormalities are seen in the right breast. ULTRASOUND TECHNIQUE: Targeted ultrasound of the indicated area was performed. Lowry scale images were saved. ULTRASOUND FINDINGS: Ultrasound demonstrates a simple cyst measuring 0.3 x 0.2 x 0.3 cm in the right breast at 11 o'clock located 6 cm from the nipple. Internal echotexture is anechoic. There is posterior acoustic enhancement. Color flow imaging demonstrates vascularity is not present. There are no suspicious findings in the imaged area. IMPRESSION: There is no mammographic or sonographic evidence of malignancy. Return to annual screening mammogram is recommended. Annual mammogram will be due in 1 year. BI-RADS Category 2: Benign RISK: Based on the Tyrer-Cuzick (TC) risk assessment model, this patient has a 6.3% lifetime risk of developing breast cancer, meaning they are at average risk for developing breast cancer. However, this is only an estimate based on available history provided on the patient's questionnaire. We encourage all patients to talk with their providers about these results, further recommendations for managing breast health, and appropriate supplemental screening options if the patient has dense breast tissue. Interpreting Radiologist: Swapna Brooks M.D. Electronically signed on: 08/08/2024 Condominium Property Manager: MELISSA Transcribe Date/Time: Aug 08 2024 10:00A Dictated by : SWAPNA BROOKS MD This examination was interpreted and the report reviewed and electronically signed by: SWAPNA BROOKS MD on Aug 08 2024 10:20AM EST [id number] Normal [facility] No Panel InformationOrdered By: [facility] Provider on 08-08-2024 [facility] No Panel Informationon 08-08 Radiology Study observation (narrative) [facility] US Breast - right limitedon 08-08-2024 IMPRESSION: There is no mammographic or sonographic evidence of malignancy. Return to annual screening mammogram is recommended. Annual mammogram will be due in 1 year. BI-RADS Category 2: Benign RISK: Based on the Tyrer-Cuzick (TC) risk assessment model, this patient has a 6.3% lifetime risk of developing breast cancer, meaning they are at average risk for developing breast cancer. However, this is only an estimate based on available history provided on the patient's questionnaire. We encourage all patients to talk with their providers about these results, further recommendations for managing breast health, and appropriate supplemental screening options if the patient has dense breast tissue. Interpreting Radiologist: Swapna Brooks M.D. Electronically signed on: 08/08/2024 Condominium Property Manager: MELISSA Transcribe Date/Time: Aug 08 2024 10:00A Dictated by : SWAPNA BROOKS MD This examination was interpreted and the report reviewed and electronically signed by: SWAPNA BROOKS MD on Aug 08 2024 10:20AM [facility] DIVISION OF RADIOLOGY * * *Final Report* * * DATE OF EXAM: Aug 08 2024 10:09AM [facility] [place] ANGEL BREAST LTD RT / PROCEDURE REASON: Abnormal mammogram * * * * Physician Interpretation * * * * RESULT: [place] [address] HISTORY: Patient is 39 years old and is seen for diagnostic evaluation of abnormal mammogram in both breasts. Patient states no personal history of breast cancer. Patient states no personal history of other cancers. COMPARISON STUDIES: The present examination has been compared to prior imaging studies dated 07/06/2023 (mammogram) and 07/18/2024 (mammogram). MAMMOGRAM TECHNIQUE: The study was acquired using full field digital technology and interpreted from soft copy. Digital Breast Tomosynthesis (DBT) images were obtained and used to assist in the interpretation of this examination. Computer-aided detection was utilized by the radiologist in the interpretation of this examination. MAMMOGRAM FINDINGS: There are scattered areas of fibroglandular density. There is a focal asymmetry in the upper outer quadrant of the right breast. No suspicious masses, calcifications or other abnormalities are seen in the right breast. ULTRASOUND TECHNIQUE: Targeted ultrasound of the indicated area was performed. Lowry scale images were saved. ULTRASOUND FINDINGS: Ultrasound demonstrates a simple cyst measuring 0.3 x 0.2 x 0.3 cm in the right breast at 11 o'clock located 6 cm from the nipple. Internal echotexture is anechoic. There is posterior acoustic enhancement. Color flow imaging demonstrates vascularity is not present. There are no suspicious findings in the imaged area. DIVISION OF RADIOLOGY Provider, [facility] - 08/08/2024 * * *Final Report* * * DATE OF EXAM: Aug 08 2024 10:09AM [facility] [place] US BREAST LTD RT / PROCEDURE REASON: Abnormal mammogram * * * * Physician Interpretation * * * * RESULT: [address] [place] [address] HISTORY: Patient is 39 years old and is seen for diagnostic evaluation of abnormal mammogram in both breasts. Patient states no personal history of breast cancer. Patient states no personal history of other cancers. COMPARISON STUDIES: The present examination has been compared to prior imaging studies dated 07/06/2023 (mammogram) and 07/18/2024 (mammogram). MAMMOGRAM TECHNIQUE: The study was acquired using full field digital technology and interpreted from soft copy. Digital Breast Tomosynthesis (DBT) images were obtained and used to assist in the interpretation of this examination. Computer-aided detection was utilized by the radiologist in the interpretation of this examination. MAMMOGRAM FINDINGS: There are scattered areas of fibroglandular density. There is a focal asymmetry in the upper outer quadrant of the right breast. No suspicious masses, calcifications or other abnormalities are seen in the right breast. ULTRASOUND TECHNIQUE: Targeted ultrasound of the indicated area was performed. Lowry scale images were saved. ULTRASOUND FINDINGS: Ultrasound demonstrates a simple cyst measuring 0.3 x 0.2 x 0.3 cm in the right breast at 11 o'clock located 6 cm from the nipple. Internal echotexture is anechoic. There is posterior acoustic enhancement. Color flow imaging demonstrates vascularity is not present. There are no suspicious findings in the imaged area. IMPRESSION IMPRESSION: There is no mammographic or sonographic evidence of malignancy. Return to annual screening mammogram is recommended. Annual mammogram will be due in 1 year. BI-RADS Category 2: Benign RISK: Based on the Tyrer-Cuzick (TC) risk assessment model, this patient has a 6.3% lifetime risk of developing breast cancer, meaning they are at average risk for developing breast cancer. However, this is only an estimate based on available history provided on the patient's questionnaire. We encourage all patients to talk with their providers about these results, further recommendations for managing breast health, and appropriate supplemental screening options if the patient has dense breast tissue. Interpreting Radiologist: Swapna Brooks M.D. Electronically signed on: 08/08/2024 Condominium Property Manager: MELISSA Transcribe Date/Time: Aug 08 2024 10:00A Dictated by : SWAPNA BROOKS MD This examination was interpreted and the report reviewed and electronically signed by: SWAPNA BROOKS MD on Aug 08 2024 10:20AM EST [facility] FARAZ BY IFA SCREENon 08-04-20 Nuclear Ab pattern (S) [Interp] Nuclear homogeneous Normal [facility] Comment on above: Order Comment: Specramos prater Type: BLOOD SPECIMEN Ordering Facility: [facility] Address: [address] [place] [address] Performed By: #### A NAIFS #### [facility] CLIA [id number] [address] [place] [address] [place] Nuclear Ab Ql (S) Positive Abnormal Negative [facility] Comment on above: Order Comment: Sabrina prater Type: BLOOD SPECIMEN Ordering Facility: [facility] Address: [address] [place] [address] Result Comment: Anti -nuclear antibody test is used as an aid in diagnosis of systemic autoimmune diseases. Where positive and clinically warranted, follow-up using disease-specific testing is recommended. Low positive titers are not uncommon with advanced age, certain chronic infections, and malignancies among others. Test methodology: Indirect fluorescence immunoassay (IFA) using HEp-2 cells. 1:80 Performed By: #### A NAIFS #### [facility] CLIA [id number] [address] [place] [address] [place] CBC W Auto Differential pane l (Bld)on 08-04-2024 Basophils (Bld) [#/Vol] 0.04 10*3/uL Normal <0.11 [facility] Comment on above: Order Comment: Speci men Type: BLOOD SPECIMENOrdering Facility: [facility] Address: [address] [place] [address] Performed By: #### 4 537-7, 09493-9 ####[facility] [id number] [facility] [place] [address] [place] Basophils/100 WBC (Bld) 0.6 % Normal [facility] Comment on above: Order Comment: Speci men Type: BLOOD SPECIMENOrdering Facility: [facility] Address: [address] [place] [address] Performed By: #### 4 537-7, 84924-5 ####[facility] [id number] [place] [address] [place] Differential cell count method Nom (Bld) Auto Normal [facility] Comment on above: Order Comment: Speci men Type: BLOOD SPECIMENOrdering Facility: [facility] Address: [address] [place] [address] Performed By: #### 4 537-7, 74964-7 ####[facility] [id number] [place] [address] [place] Eosinophils (Bld) [#/Vol] 0.03 10*3/uL Normal <0.46 [facility] Comment on above: Order Comment: Speci men Type: BLOOD SPECIMENOrdering Facility: [facility] Address: [address] [place] [address] Performed By: #### 4 537-7, 30704-0 ####[facility] [id number] [place] [address] [place] Eosinophils/100 WBC (Bld) 0.4 % Normal [facility] Comment on above: Order Comment: Speci men Type: BLOOD SPECIMENOrdering Facility: [facility] Address: [address] [place] [address] Performed By: #### 4 537-7, 60476-7 ####[facility] [id number] [place] [address] [place] Erythrocyte distribution width (RBC) [Ratio] 12.2 % Normal 11.5-15.0 [facility] Comment on above: Order Comment: Speci men Type: BLOOD SPECIMENOrdering Facility: [facility] Address: [address] [place] [address] Performed By: #### 4 537-7, 42110-1 ####[facility] [id number] [place] [address] [place] Hematocrit (Bld) [Volume fraction] 37.4 % Normal 36.0-46.0 [facility] Comment on above: Order Comment: Speci men Type: BLOOD SPECIMENOrdering Facility: [facility] Address: [address] [place] [address] Performed By: #### 4 537-7, 06948-0 ####[facility] [id number] [place] [address] [place] Hemoglobin (Bld) [Mass/Vol] 12.6 g/dL Normal 11.5-15.5 [facility] Comment on above: Order Comment: Speci men Type: BLOOD SPECIMENOrdering Facility: [facility] Address: [address] [place] [address] Performed By: #### 4 537-7, 61526-6 ####[facility] [id number] [place] [address] [place] Immature granulocytes (Bld) [#/Vol] 10*3/uL Normal <0.10 [facility] Comment on above: Order Comment: Speci men Type: BLOOD SPECIMENOrdering Facility: [facility] Address: [address] [place] [address] Performed By: #### 4 537-7, 77976-9 ####[facility] [id number] [place] [address] [place] Immature granulocytes/100 WBC (Bld) 0.3 % Normal [facility] Comment on above: Order Comment: Speci men Type: BLOOD SPECIMENOrdering Facility: [facility] Address: [address] [place] [address] Performed By: #### 4 537-7, 21255-3 ####[facility] [id number] [place] [address] [place] Lymphocytes (Bld) [#/Vol] 2.21 10*3/uL Normal 1.00-4.00 [facility] Comment on above: Order Comment: Speci men Type: BLOOD SPECIMENOrdering Facility: [facility] Address: [address] [place] [address] Performed By: #### 4 537-7, 37153-5 ####[facility] [id number] [place] [address] [place] Lymphocytes/100 WBC (Bld) 31.5 % Normal [facility] Comment on above: Order Comment: Speci men Type: BLOOD SPECIMENOrdering Facility: [facility] Address: [address] [place] [address] Performed By: #### 4 537-7, 09622-2 ####[facility] [id number] [place] [address] [place] MCH (RBC) [Entitic mass] 31.5 pg Normal 26.0-34.0 [facility] Comment on above: Order Comment: Speci men Type: BLOOD SPECIMENOrdering Facility: [facility] Address: [address] [place] [address] Performed By: #### 4 537-7, 64343-9 ####[facility] [id number] [place] [address] [place] MCHC (RBC) [Mass/Vol] 33.7 g/dL Normal 30.5-36.0 [facility] Comment on above: Order Comment: Speci men Type: BLOOD SPECIMENOrdering Facility: [facility] Address: [address] [place] [address] Performed By: #### 4 537-7, 93848-3 ####[facility] [id number] [place] [address] [place] MCV (RBC) [Entitic vol] 93.5 fL Normal 80.0-100.0 [facility] Comment on above: Order Comment: Speci men Type: BLOOD SPECIMENOrdering Facility: [facility] Address: [address] [place] [address] Performed By: #### 4 537-7, 90894-8 ####[facility] [id number] [place] [address] [place] Monocytes (Bld) [#/Vol] 0.63 10*3/uL Normal <0.87 [facility] Comment on above: Order Comment: Speci men Type: BLOOD SPECIMENOrdering Facility: [facility] Address: [address] [place] [address] Performed By: #### 4 537-7, 85178-0 ####[facility] [id number] [place] [address] [place] Monocytes/100 WBC (Bld) 9.0 % Normal [facility] Comment on above: Order Comment: Speci men Type: BLOOD SPECIMENOrdering Facility: [facility] Address: [address] [place] [address] Performed By: #### 4 537-7, 22854-0 ####[facility] [id number] [place] [address] [place] Neutrophils (Bld) [#/Vol] 4.09 10*3/uL Normal 1.45-7.50 [facility] Comment on above: Order Comment: Speci men Type: BLOOD SPECIMENOrdering Facility: [facility] Address: [address] [place] [address] Performed By: #### 4 537-7, 23327-1 ####[facility] [id number] [place] [address] [place] Neutrophils/100 WBC (Bld) 58.2 % Normal [facility] Comment on above: Order Comment: Speci men Type: BLOOD SPECIMENOrdering Facility: [facility] Address: [address] [place] [address] Performed By: #### 4 537-7, 44866-5 ####[facility] [id number] [place] [address] [place] Nucleated RBC (Bld) [#/Vol] 10*3/uL Normal <0.01 [facility] Comment on above: Order Comment: Speci men Type: BLOOD SPECIMENOrdering Facility: [facility] Address: [address] [place] [address] Performed By: #### 4 537-7, 85738-0 ####[facility] [id number] [place] [address] [place] Nucleated RBC/100 WBC (Bld) [Ratio] 0.0 /100 WBC Normal [facility] Comment on above: Order Comment: Speci men Type: BLOOD SPECIMENOrdering Facility: [facility] Address: [address] [place] [address] Performed By: #### 4 537-7, 29194-5 ####[facility] [id number] [place] [address] [place] Platelet mean volume (Bld) [Entitic vol] 11.7 fL Normal 9.0-12.7 [facility] Comment on above: Order Comment: Speci men Type: BLOOD SPECIMENOrdering Facility: [facility] Address: [address] [place] [address] Performed By: #### 4 537-7, 51543-8 ####[facility] [id number] [place] [address] [place] Platelets (Bld) [#/Vol] 203 10*3/uL Normal 150-400 [facility] Comment on above: Order Comment: Speci men Type: BLOOD SPECIMENOrdering Facility: [facility] Address: [address] [place] [address] Performed By: #### 4 537-7, 95369-6 ####[facility] [id number] [place] [address] [place] RBC (Bld) [#/Vol] 4.00 10*6/uL Normal 3.90-5.20 [facility] Comment on above: Order Comment: Speci men Type: BLOOD SPECIMENOrdering Facility: [facility] Address: [address] [place] [address] Performed By: #### 4 537-7, 71934-6 ####[facility] [id number] [place] [address] [place] WBC (Bld) [#/Vol] 7.02 10*3/uL Normal 3.70-11.00 [facility] Comment on above: Order Comment: Speci men Type: BLOOD SPECIMENOrdering Facility: [facility] Address: [address] [place] [address] Performed By: #### 4 537-7, 18157-7 ####[facility] [id number] [place] [address] [facility] [place] CNOVon 08-04-2024 CNOV Office Visit (INTMWS ) -------- BESSIE SOLOMON ([id number]) 1985 F Date Time Provider Department 08/04/24 4:20 PM DARIUSZ BERRY INTMWS During your visit today, we recorded the following information about you: Temperature Pulse Respiration Blood pressure 98.9 degrees 66/minute 16/minute 127/86 Weight 84.6 kg Dariusz Berry APRN.SIDE PULLER 08/04/2024 4:52 PM Signed SUBJECTIVE: Hepatitis B Vaccine(1 of 3 - 19+ 3-dose series) Never done Covid-19 Vaccine( season) due on 05/25/2024 Presents for routine visit and concerns regarding skin lesions. 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 HPI excerpted from previous visit. She underwent arthroscopic labral repair and more plasty October and November 2023. She feels recovered now. Pain has resolved with surgery. Notes supportive shoewear makes a lot of difference for her. She is followed by Dr. True Gaytan pulmonology and Dr. Sam Hankins allergy for her severe persistent asthma. Currently treating with Advair albuterol and Tezspire. Stopped limited due to severe leg cramping. Noted to be doing well on current treatments. Last seen July 08, [address] Gaytan 6-month follow-up recommended. Last seen June 11, 2024 Dr. Hankins. Noted chronic rhinitis. Currently notes that he has not seen him in good control. She notes multiple moles on her face and back present for years. She notes facial moles can start itching then appeared a later date. Has presumed wart right side of her nose.. She has used aphs-oha-irglort treatments for the wart but it returns. Family history of skin cancer but no skin cancer for her. 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 Notes previously had SIBO, now resolved. No current GI complaints She has noted persistent hoarseness since beginning of the year. She has had 2 orthopedic surgeries, October and November. Presumed general anesthesia. She notes intermittent low-grade fever of unknown origin. Does not typically feel ill when this occurs. Lingers for an hour or 2 then resolves. Fevers can be 99-100.3F. Typically no associated symptoms. 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 Review of Systems Constitutional: Positive for fever (intermittent, periodic for months). HENT: Positive for voice change. Negative for sore throat and trouble swallowing. Gastrointestinal: Negative for abdominal pain, diarrhea, nausea and vomiting. No GERD Objective BP 127/86 Pulse 66 Temp 37.2 ?C (98.9 ?F) Resp 16 Wt 84.6 kg (186 lb 8.2 oz) LMP 05/21/2024 (Exact Date) BMI 31.77 kg/m? Physical Exam Vitals and nursing note reviewed. Constitutional: Appearance: Normal appearance. HENT: Head: Normocephalic and atraumatic. Eyes: Conjunctiva/sclera: Conjunctivae normal. Neck: Thyroid: Thyromegaly (possible mildly enlarged, no palpable nodules) present. No thyroid mass or thyroid tenderness. Vascular: Normal carotid pulses. No carotid bruit or JVD. Cardiovascular: Rate and Rhythm: Normal rate and [...] Skin: General: Skin is warm and dry. Comments: Multiple raised flesh colored lesions across face, numerous flat brown moles and raised brown moles on her back Neurological: General: No focal deficit present. Mental Status: She is alert and oriented to person, place, and time. ALLERGIES Allergen Reactions Clindamycin Rash, GI Upset Septra [Sulfamethox* Rash, GI Upset Medication fluticasone-salmeterol HFA (ADVAIR HFA) 230-21 mcg/actuation inhaler Inhale 2 Puffs as instructed two times a day. albuterol (PROVENTIL) 2.5 mg /3 mL (0.083 %) nebulizer solution Use 3 mL via nebulizer every 4 hours as needed for wheezing/shortness of breath. albuterol HFA (VENTOLIN HFA) 90 mcg/actuation inhaler Inhale 2 Puffs as instructed every 4 hours as needed for wheezing/shortness of breath (and before sexertion / exercise). fluticasone (FLONASE) 50 mcg/actuation nasal spray Use 2 Sprays in each nostril once daily. tezepelumab-ekko (more content not included)... Normal [facility] CRP SerPl-mCncon 08-04-2024 CRP [Mass/Vol] mg/L Normal <0.9 [facility] Comment on above: Order Comment: Speci men Type: BLOOD SPECIMEN Ordering Facility: [facility] Address: [address] [place] [address] Performed By: #### 5 213-4 #### [facility] CLIA [id number] [address] [place] [address] [place] Comprehensive metabolic 2000 panelon 08-04-2024 Albumin [Mass/Vol] 4.6 g/dL Normal 3.9-4.9 [facility] Comment on above: Order Comment: Speci men Type: BLOOD SPECIMEN Ordering Facility: [facility] Address: [address] [place] [address] Performed By: #### 5 213-4 #### [facility] CLIA [id number] [address] [place] [address] [place] ALP [Catalytic activity/Vol] 61 U/L Normal 34-123 [facility] Comment on above: Order Comment: Speci men Type: BLOOD SPECIMEN Ordering Facility: [facility] Address: [address] [place] [address] Performed By: #### 5 213-4 #### [facility] CLIA [id number] [address] [id number] [address] [place] ALT [Catalytic activity/Vol] 21 U/L Normal 7-38 [facility] Comment on above: Order Comment: Speci men Type: BLOOD SPECIMEN Ordering Facility: [facility] Address: [address] [place], [place] [address] Performed By: #### 5 213-4 #### [facility] CLIA [id number] [address] [place] [address] [place] Anion gap [Moles/Vol] 13 mmol/L Normal 8-15 [facility] Comment on above: Order Comment: Speci men Type: BLOOD SPECIMEN Ordering Facility: [facility] Address: [address] [place] [address] Performed By: #### 5 213-4 #### [facility] CLIA [id number] [address] [place] [address] [place] AST [Catalytic activity/Vol] 24 U/L Normal 13-35 [facility] Comment on above: Order Comment: Speci men Type: BLOOD SPECIMEN Ordering Facility: [facility] Address: [address] [place] [address] Performed By: #### 5 213-4 #### [facility] CLIA [id number] [address] [place] [address] [place] Bilirubin [Mass/Vol] 1.2 mg/dL Normal 0.2-1.3 [facility] Comment on above: Order Comment: Speci men Type: BLOOD SPECIMEN Ordering Facility: [facility] Address: [address] [place] [address] Performed By: #### 5 213-4 #### [facility] CLIA [id number] [address] [place] [address] [place] Calcium [Mass/Vol] 9.6 mg/dL Normal 8.5-10.2 [facility] Comment on above: Order Comment: Speci men Type: BLOOD SPECIMEN Ordering Facility: [facility] Address: [address] [place] [address] Performed By: #### 5 213-4 #### [facility] CLIA [id number] [address] [place] [address] [place] Chloride [Moles/Vol] 103 mmol/L Normal 98-107 [facility] Comment on above: Order Comment: Speci men Type: BLOOD SPECIMEN Ordering Facility: [facility] Address: [address] [place] [address] Performed By: #### 5 213-4 #### [facility] CLIA [id number] [address] [place] [address] [place] CO2 [Moles/Vol] 24 mmol/L Normal 22-30 [facility] Comment on above: Order Comment: Speci men Type: BLOOD SPECIMEN Ordering Facility: [facility] Address: [address] [place] [address] Performed By: #### 5 213-4 #### [facility] CLIA [id number] [address] [place] [address] [place] Creatinine [Mass/Vol] 0.75 mg/dL Normal 0.58-0.96 [facility] Comment on above: Order Comment: Speci men Type: BLOOD SPECIMEN Ordering Facility: [facility] Address: [address] [place] [address] Performed By: #### 5 213-4 #### [facility] CLIA [id number] [address] [place] [address] [place] Creatinine and Glomerular filtration rate.predicted panel (S/P/Bld) 103 mL/min/1.73m??? Normal >=60 [facility] Comment on above: Order Comment: Speci men Type: BLOOD SPECIMEN Ordering Facility: [facility] Address: [address] [place] [address] Result Comment: Starla mated Glomerular Filtration Rate (eGFR) is calculated using the 2020 CKD-EPI creatinine equation. This equation utilizes serum creatinine, sex, and age as parameters. The creatinine assay has traceable calibration to isotope dilution-mass spectrometry. Refer to KDIGO guidelines for clinical interpretation. In patients with unstable renal function, e.g. those with acute kidney injury, the eGFR may not accurately reflect actual GFR. Performed By: #### 5 213-4 #### [facility] CLIA [id number] [address] [place] [address] [place] Glucose [Mass/Vol] 89 mg/dL Normal 74-99 [facility] Comment on above: Order Comment: Speci men Type: BLOOD SPECIMEN Ordering Facility: [facility] Address: [address] [place] [address] Result Comment: The [place] Diabetes Association (ADA) provides guidance for cutoff values for fasting glucose and random glucose. The ADA defines fasting as no caloric intake for at least 8 hours. Fasting plasma glucose results between 100 to 125 mg/dL indicate increased risk for diabetes (prediabetes). Fasting plasma glucose results greater than or equal to 126 mg/dL meet the criteria for diagnosis of diabetes. In the absence of unequivocal hyperglycemia, results should be confirmed by repeat testing. In a patient with classic symptoms of hyperglycemia or hyperglycemic crisis, random plasma glucose results greater than or equal to 200 mg/dL meet the criteria for diagnosis of diabetes. Reference: Standards of Medical Care in Diabetes 2016, [place] [employer] Association. Diabetes Care. 2016.39(Suppl 1). Performed By: #### 5 213-4 #### [facility] CLIA [id number] [address] [place] [address] [place] Potassium [Moles/Vol] 4.1 mmol/L Normal 3.7-5.1 [facility] Comment on above: Order Comment: Sabrina prater Type: BLOOD SPECIMEN Ordering Facility: [facility] Address: [address] [place] [address] Performed By: #### 5 213-4 #### [facility] CLIA [id number] [address] [place] [address] [place] Protein [Mass/Vol] 7.3 g/dL Normal 6.3-8.0 [facility] Comment on above: Order Comment: Jaci men Type: BLOOD SPECIMEN Ordering Facility: [facility] Address: [address] [place] [address] Performed By: #### 5 213-4 #### [facility] CLIA [id number] [address] [place] [address] [place] Sodium [Moles/Vol] 140 mmol/L Normal 136-144 [facility] Comment on above: Order Comment: Speci men Type: BLOOD SPECIMEN Ordering Facility: [facility] Address: [address] [place] [address] Performed By: #### 5 213-4 #### [facility] CLIA [id number] [address] [place] [address] [place] Urea nitrogen [Mass/Vol] 10 mg/dL Normal 7-21 [facility] Comment on above: Order Comment: Speci men Type: BLOOD SPECIMEN Ordering Facility: [facility] Address: [address] [place] [address] Performed By: #### 5 213-4 #### [facility] CLIA [id number] [address] [place] [address] [place] ESR Westergren method (Bld) [Velocity]on 08-04-2024 ESR (Bld) [Velocity] 5 mm/h Normal 0-20 [facility] Comment on above: Order Comment: Speci men Type: BLOOD SPECIMENOrdering Facility: [facility] Address: [address] [place] [address] Performed By: #### 4 537-7, 56320-2 ####[facility] [id number] [place] [address] [place] Ferritin SerPl-mCncon 2023 Ferritin [Mass/Vol] 41.8 ng/mL Normal 14.7-205.1 [facility] Comment on above: Order Comment: Speci men Type: BLOOD SPECIMEN Ordering Facility: [facility] Address: [address] [place] [address] Performed By: #### 5 213-4 #### [facility] CLIA [id number] [address] [place] [address] [place] HbA1c (Bld)on 08-04-2024 Average glucose Estimated from glycated hemoglobin (Bld) [Mass/Vol] 71 mg/dL Normal [facility] Comment on above: Order Comment: Sabrina prater Type: BLOOD SPECIMEN Ordering Facility: [facility] Address: [address] [place] [address] Result Comment: eAG: (Estimated average glucose) is a calculated value from HgbA1c and is medical representative of the average blood glucose level in the last 2-3 month period. Performed By: #### 5 213-4 #### [facility] IA [id number] [address] [place] [address] HbA1c (Bld) [Mass fraction] 4.1 % Low 4.3-5.6 [facility] Comment on above: Order Comment: Sabrina prater Type: BLOOD SPECIMEN Ordering Facility: [facility] Address: [address] [place] [address] Result Comment: [place] Diabetes Association guidelines indicate that patients with HgbA1c in the range 5.7-6.4% are at increased risk for development of diabetes, and intervention by lifestyle modification may be beneficial. HgbA1c greater or equal to 6.5% is considered diagnostic of diabetes. Performed By: #### 5 213-4 #### [facility] IA [id number] [address] [place] [address] [place] Heteroph Ab Ser Ql LAon 07-25 Heterophile Ab LA Ql (S) Negative Normal Negative [facility] Comment on above: Order Comment: Sabrina prater Type: BLOOD SPECIMEN Ordering Facility: [facility] Address: [address] [place] [address] Result Comment: Infe ctious Mononucleosis rapid test is used as an aid in diagnosis of acute infection with Endy-Phan virus (EBV). The antibody levels may occasionally remain elevated up to several months after a primary EBV infection. Final interpretation should be done in conjunction with EBV-specific serology and clinical correlation. False positive results may occasionally be seen with other infectious agents such as Cytomegalovirus, Toxoplasma, and HIV among others as well as non-infectious conditions such as lymphoma. Clinical correlation is required. Performed By: #### 5 213-4 #### [facility] CLIA [id number] [address] [place] [address] [place] Rheumatoid fact SerPl-aCncon 08-04-2024 Rheumatoid factor Qn [IU]/mL Normal <16 [facility] Comment on above: Order Comment: Speci men Type: BLOOD SPECIMEN Ordering Facility: [facility] Address: [address] [place] [address] Performed By: #### 5 213-4 #### [facility] CLIA [id number] [address] [place] [address] [place] THYROID PEROXIDASE ANTIBODYo n 08-04-2024 TPO Ab Qn [IU]/mL Normal <5.6 [facility] Comment on above: Order Comment: Speci men Type: BLOOD SPECIMEN Ordering Facility: [facility] Address: [address] [place] [address] Result Comment: Thyr oid Peroxidase Antibody test is used as an aid in diagnosis of autoimmune thyroid disease. Clinical correlation is required. Performed By: #### 5 213-4 #### [facility] CLIA [id number] [address] [place] [address] [place] Urinalysis complete panel (U )on 08-04-2024 Bacteria LM.HPF (Urine sed) [#/Area] Negative Normal Negative [facility] Comment on above: Order Comment: Speci men Type: URINE SPECIMEN Ordering Facility: [facility] Address: [address] [place] [address] Performed By: #### 2 4356-8 #### [facility] CLIA [id number] [address] [place] [address] [place] Bilirubin Ql (U) Negative Normal Negative [facility] Comment on above: Order Comment: Speci men Type: URINE SPECIMEN Ordering Facility: [facility] Address: [address] [place] [address] Performed By: #### 2 4356-8 #### [facility] CLIA [id number] [address] [place] [address] [place] Clarity (Unsp spec) Clear Normal Clear [facility] Comment on above: Order Comment: Speci men Type: URINE SPECIMEN Ordering Facility: [facility] Address: [address] [place] [address] Performed By: #### 2 4356-8 #### [facility] CLIA [id number] [address] [place] [address] [place] Color (U) Yellow Normal Yellow [facility] Comment on above: Order Comment: Speci men Type: URINE SPECIMEN Ordering Facility: [facility] Address: [address] [place] [address] Performed By: #### 2 4356-8 #### [facility] CLIA [id number] [address] [place] [address] [place] Epithelial cells LM.HPF (Urine sed) [#/Area] None Seen Normal [facility] Comment on above: Order Comment: Speci men Type: URINE SPECIMEN Ordering Facility: [facility] Address: [address] [place] [address] Performed By: #### 2 4356-8 #### [facility] CLIA [id number] [address] [place] [address] [place] Glucose Test strip (U) [Mass/Vol] Negative Normal Negative [facility] Comment on above: Order Comment: Speci men Type: URINE SPECIMEN Ordering Facility: [facility] Address: [address] [place] [address] Performed By: #### 2 4356-8 #### [facility] CLIA [id number] [address] [place] [address] [place] Hemoglobin Ql (U) Negative Normal Negative [facility] Comment on above: Order Comment: Speci men Type: URINE SPECIMEN Ordering Facility: [facility] Address: [address] [place] [address] Performed By: #### 2 4356-8 #### [facility] CLIA [id number] [address] [place] [address] [place] Hyaline casts (Urine sed) [#/Area] 0 /[LPF] Normal 0 /LPF [facility] Comment on above: Order Comment: Speci men Type: URINE SPECIMEN Ordering Facility: [facility] Address: [address] [place] [address] Performed By: #### 2 4356-8 #### [facility] CLIA [id number] [address] [place] [address] [place] Ketones Ql (U) 1+ Abnormal Negative [facility] Comment on above: Order Comment: Speci men Type: URINE SPECIMEN Ordering Facility: [facility] Address: [address] [place] [address] Performed By: #### 2 4356-8 #### [facility] CLIA [id number] [address] [place] [address] [place] Leukocyte esterase Test strip Ql (U) Negative Normal Negative [facility] Comment on above: Order Comment: Speci men Type: URINE SPECIMEN Ordering Facility: [facility] Address: [address] [place] [address] Performed By: #### 2 4356-8 #### [facility] CLIA [id number] [address] [place] [address] [place] Nitrite Ql (U) Negative Normal Negative [facility] Comment on above: Order Comment: Speci men Type: URINE SPECIMEN Ordering Facility: [facility] Address: [address] [place] [address] Performed By: #### 2 4356-8 #### [facility] CLIA [id number] [address] [place] [address] [place] pH (U) 6.5 [pH] Normal <8.5 [facility] Comment on above: Order Comment: Speci men Type: URINE SPECIMEN Ordering Facility: [facility] Address: [address] [place] [address] Performed By: #### 2 4356-8 #### [facility] CLIA [id number] [address] [place] [address] [place] Protein (U) [Mass/Vol] Negative Normal Negative [facility] Comment on above: Order Comment: Speci men Type: URINE SPECIMEN Ordering Facility: [facility] Address: [address] [place] [address] Performed By: #### 2 4356-8 #### [facility] CLIA [id number] [address] [place] [address] [place] RBC LM.HPF (Urine sed) [#/Area] 0-2 /HPF Normal 0-2 /HPF [facility] Comment on above: Order Comment: Speci men Type: URINE SPECIMEN Ordering Facility: [facility] Address: [address] [place] [address] Performed By: #### 2 4356-8 #### [facility] CLIA [id number] [address] [place] [address] [place] Specific gravity (U) [Rel density] 1.009 Normal 1.005-1.030 [facility] Comment on above: Order Comment: Speci men Type: URINE SPECIMEN Ordering Facility: [facility] Address: [address] [place] [address] Performed By: #### 2 4356-8 #### [facility] CLIA [id number] [address] [place] [address] [place] Urobilinogen Ql (U) 0.2 EU/dL Normal 0.2-1.0 EU/dL [facility] Comment on above: Order Comment: Speci men Type: URINE SPECIMEN Ordering Facility: [facility] Address: [address] [place] [address] Performed By: #### 2 4356-8 #### [facility] IA [id number] [address] [place] [address] [place] WBC LM.HPF (Urine sed) [#/Area] 0-5 /HPF Normal 0-5 /HPF [facility] Comment on above: Order Comment: Speci men Type: URINE SPECIMEN Ordering Facility: [facility] Address: [address] [place] [address] Performed By: #### 2 4356-8 #### [facility] CLIA [id number] [address] [place] [address] [place] Stefania 07-25-2024 CNPN Telephone (RADMN) -------- BESSIE SOLOMON ([id number]) 1985 F Date Time Provider Department 07/25/24 KLAUDIA RUSH During your visit today, we recorded the following information about you: Allergies As of Date: 07/25/2024 Noted Allergy Reaction CLINDAMYCIN 05/09/2010 2 - Rash 8 - GI Upset SEPTRA (SULFAMETHOXAZOLE-TRIMET HO*05/09/2010 2 - Rash 8 - GI Upset Date Reviewed: 07/18/2024 Reviewed by: Dariusz Berry APRN.SIDE PULLER - Fully Assessed Reason for Visit: Mammogram Result Call Back [1736] Prescriptions as of 07/25/2024 - ofloxacin (OCUFLOX) 0.3 % ophthalmic solution Use 1 Drop in the right eye four times daily. - keTORolac (ACULAR) 0.5 % ophthalmic solution Use 1 Drop in both eyes four times daily. - fluticasone-salmeterol HFA (ADVAIR HFA) 230-21 mcg/actuation inhaler Inhale 2 Puffs as instructed two times a day. - albuterol (PROVENTIL) 2.5 mg /3 mL (0.083 %) nebulizer solution Use 3 mL via nebulizer every 4 hours as needed for wheezing/shortness of breath. - albuterol HFA (VENTOLIN HFA) 90 mcg/actuation inhaler Inhale 2 Puffs as instructed every 4 hours as needed for wheezing/shortness of breath (and before sexertion / exercise). - fluticasone (FLONASE) 50 mcg/actuation nasal spray Use 2 Sprays in each nostril once daily. - tezepelumab-ekko (TEZSPIRE) 210 mg/1.91 mL (110 mg/mL) injection INJECT 210MG SUBCUTANEOUSLY EVERY 4 WEEKS - fluticasone-salmeterol HFA (ADVAIR) 230-21 mcg/actuation inhaler Inhale 2 Puffs as instructed two times a day. - montelukast (SINGULAIR) 10 mg tablet TAKE 1 TABLET BY MOUTH DAILY AT BEDTIME - azelastine 0.1% nasal spray Use 2 Sprays in each nostril two times a day as needed. - ondansetron orally disintegrating (ZOFRAN ODT) 4 mg disintegrating tablet Take 1 tablet by mouth every 8 hours as needed for nausea/vomiting. - PREDNISONE ORAL Take by mouth as needed. Burst - fexofenadine (GM) 180 mg tablet Take 180 mg by mouth once daily as needed. - cetirizine (ZYRTEC) 10 mg tablet Take 10 mg by mouth once daily. Problem List As Of Date 07/25/2024 Noted Resolved Irritable bowel syndrome with diarrhea [K58.0] 07/19/2010 Chest pain [R07.9] 04/19/2021 12/04/2023 SOB (shortness of breath) [R06.02] 04/19/2021 Essential hypertension, benign [I10] 04/19/2021 12/04/2023 Stress incontinence in female [N39.3] 11/10/2021 Menorrhagia with regular cycle [N92.0] 11/10/2021 Dysmenorrhea [N94.6] 11/10/2021 Cervical polyp [N84.1] 11/10/2021 Severe persistent asthma without complication [*05/31/2022 Seasonal allergic rhinitis due to pollen [J30.1]05/31/2022 Chronic rhinitis [J31.0] 05/31/2022 Epigastric pain [R10.13] 07/23/2023 Nausea [R11.0] 07/23/2023 Rectal bleeding [K62.5] 07/23/2023 Acetabular labrum tear, unspecified laterality,*09/14/2023 07/18/2024 Acetabular labrum tear, left, initial encounter*09/14/2023 07/18/2024 Tear of right acetabular labrum [S73.191A] 12/14/2023 07/18/2024 Encounter Status:Closed by HUSAM FERRARO on 07/25/24 Normal [facility] US THYROID/PARATHYROIDon US THYROID/PARATHYROID * * *Final Report* * * DATE OF EXAM: Jul 25 2024 7:28AM U 1048 - US THYROID/PARATHYROID / PROCEDURE REASON: Enlarged thyroid * * * * Physician Interpretation * * * * EXAMINATION: THYROID ULTRASOUND CLINICAL HISTORY: Enlarged thyroid TECHNIQUE: Sonography and Doppler imaging of the thyroid was performed. Images were obtained and stored in a permanent archive. MQ: UST_1 COMPARISON: None. RESULT: Right Lobe: 4.5 x 1.2 x 1.6 cm; homogeneous echogenicity, increased vascular flow on color Doppler imaging. Left Lobe: 4.3 x 1.1 x 1.6 cm; homogeneous echogenicity, increased vascular flow on color Doppler imaging. Isthmus: 0.3 cm The most suspicious thyroid nodule(s) (up to four) as below: NODULE 1: Location: Right upper pole Size: 1.3 x 1.0 x 1.0 cm Characteristics: Composition: Solid or almost completely solid, 2 points Echogenicity: Isoechoic, 1 point Shape: [id number], 0 points Margin: Smooth, 0 points Echogenic foci (add points for all that apply): None, 0 points Internal vascularity: present Interval growth: No prior available for comparison TI-RADS Category: TR3 ACR Recommendation: TI-RADS 3 nodule. No FNA or further imaging is advised. IMPRESSION: Solitary nodule within the right upper pole, isoechoic and vascular. No further focal abnormality is seen. Increased vascularity throughout the thyroid gland. TI-RADS Category: TR3 ACR Recommendation: TI-RADS 3 nodule. No FNA or further imaging is advised. ACR recommendations are strictly based on the size and imaging appearance at the time of the exam and do not consider stability or previous biopsy results. Condominium Property Manager: PSCB Transcribe Date/Time: Jul 30 2024 8:55A Dictated by : CHAPARRO PALM MD This examination was interpreted and the report reviewed and electronically signed by: CHAPARRO PALM MD on Jul 30 2024 8:58AM EST [id number] Normal [facility] CNOVon 07-18-2024 CNOV Office Visit (INTMWS ) -------- BESSIE SOLOMON ([id number]) 1985 F Date Time Provider Department 07/18/24 2:20 PM DARIUSZ BERRY INTMWS During your visit today, we recorded the following information about you: Pulse Respiration Blood pressure Weight 76/minute 16/minute 116/74 85.3 kg Height 1.632 m Dariusz Berry APRN.SIDE PULLER 07/25/2024 7:59 AM Addendum SUBJECTIVE: Hepatitis B Vaccine(1 of 3 - 19+ 3-dose series) Never done Covid-19 Vaccine( season) due on 05/25/2024 Mammogram Screening due on 07/06/2024 Presents for routine visit and concerns regarding skin lesions. 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 She feels recovered now. Pain has resolved with surgery. Notes supportive shoewear makes a lot of difference for her. She is followed by Dr. True Gaytan pulmonology and Dr. Sam Hnakins allergy for her severe persistent asthma. Currently treating with Advair albuterol and Tezspire. Stopped limited due to severe leg cramping. Noted to be doing well on current treatments. Last seen July 08, [address] Gaytan 6-month follow-up recommended. Last seen June 11, 2024 Dr. Hankins. Noted chronic rhinitis. Currently notes that he has not seen him in good control. She notes multiple moles on her face and back present for years. She notes facial moles can start itching then appeared a later date. Has presumed wart right side of her nose.. She has used [id number] treatments for the wart but it returns. Family history of skin cancer but no skin cancer for her. 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 Notes previously had SIBO, now resolved. No current GI complaints Review of Systems Constitutional: Negative. Objective BP 116/74 Pulse 76 Resp 16 Ht 163.2 cm (5' 4.25) Wt 85.3 kg (188 lb 0.8 oz) LMP 05/21/2024 (Exact Date) BMI 32.03 kg/m? Physical Exam Vitals and nursing note reviewed. Constitutional: Appearance: Normal appearance. HENT: Head: Normocephalic and atraumatic. Eyes: Conjunctiva/sclera: Conjunctivae normal. Neck: Thyroid: Thyromegaly (possible mildly enlarged, no palpable nodules) present. No thyroid mass or thyroid tenderness. Vascular: Normal carotid pulses. No carotid bruit or JVD. Cardiovascular: Rate and Rhythm: Normal rate and [...] Skin: General: Skin is warm and dry. Comments: Multiple raised flesh colored lesions across face, numerous flat brown moles and raised brown moles on her back Neurological: General: No focal deficit present. Mental Status: She is alert and oriented to person, place, and time. ALLERGIES Allergen Reactions Clindamycin Rash, GI Upset Septra [Sulfamethox* Rash, GI Upset Medication ofloxacin (OCUFLOX) 0.3 % ophthalmic solution Use 1 Drop in the right eye four times daily. keTORolac (ACULAR) 0.5 % ophthalmic solution Use 1 Drop in both eyes four times daily. fluticasone-salmeterol HFA (ADVAIR HFA) 230-21 mcg/actuation inhaler Inhale 2 Puffs as instructed two times a day. albuterol (PROVENTIL) 2.5 mg /3 mL (0.083 %) nebulizer solution Use 3 mL via nebulizer every 4 hours as needed for wheezing/shortness of breath. albuterol HFA (VENTOLIN HFA) 90 mcg/actuation inhaler Inhale 2 Puffs as instructed every 4 hours as needed for wheezing/shortness of breath (and before sexertion / exercise). fluticasone (FLONASE) 50 mcg/actuation nasal spray Use 2 Sprays in each nostril once daily. tezepelumab-ekko (TEZSPIRE) 210 mg/1.91 mL (110 mg/mL) injection INJECT 210MG SUBCUTANEOUSLY EVERY 4 WEEKS fluticasone-salmeterol HFA (ADVAIR) 230-21 mcg/actuation inhaler Inhale 2 Puffs as instructed two times a day. montelukast (SINGULAIR) 10 mg tablet TAKE 1 TABL (more content not included)... Normal [facility] SCREENING W TOMOon 07-18 [facility] SCREENING W KALI * * *Final Report* * * DATE OF EXAM: Jul 18 2024 7:23AM [id number] [id number] - [facility] SCREENING W KALI / PROCEDURE REASON: Encounter for screening mammogram for breast cancer * * * * Physician Interpretation * * * * RESULT: [address] [address] HISTORY: Patient is 38 years old and is seen for screening and is asymptomatic in both breasts. Patient states no personal history of breast cancer. Patient states no personal history of other cancers. COMPARISON STUDIES: The present examination has been compared to prior imaging studies dated 07/06/2023 (mammogram) and 07/25/2023 (mammogram). MAMMOGRAM TECHNIQUE: The study was acquired using full field digital technology and interpreted from soft copy. Digital Breast Tomosynthesis (DBT) images were obtained and used to assist in the interpretation of this examination. Computer-aided detection was utilized by the radiologist in the interpretation of this examination. MAMMOGRAM FINDINGS: There are scattered areas of fibroglandular density. There is a focal asymmetry in the posterior depth upper outer quadrant of the right breast. This is best visualized on tomosynthesis CC view slice # 25 and MLO view slice # 27 . No suspicious masses, calcifications or other abnormalities are seen in the left breast. IMPRESSION: Focal asymmetry in the right breast requires additional evaluation. Diagnostic mammogram and possible ultrasound is recommended. No suspicious masses, calcifications or other abnormalities are seen in the left breast. BI-RADS Category 0: Incomplete: Needs Additional Imaging Evaluation RISK: Based on the Tyrer-Cuzick (TC) risk assessment model, this patient has a 6.3% lifetime risk of developing breast cancer, meaning they are at average risk for developing breast cancer. However, this is only an estimate based on available history provided on the patient's questionnaire. We encourage all patients to talk with their providers about these results, further recommendations for managing breast health, and appropriate supplemental screening options if the patient has dense breast tissue. Interpreting Radiologist: Neetu Mcclendon M.D. Electronically signed on: 07/21/2024 Condominium Property Manager: MELISSA Transcrineftaly Date/Time: Jul 18 2024 7:13A Dictated by: LARISA LANGE, This examination was interpreted and the report reviewed and electronically signed by: KLAUDIA RUSH MD on Jul 21 2024 10:58PM EST [id number] Normal [facility] TSH SerPl-aCncon 07-18-2024 TSH Qn 2.940 m[IU]/L Normal 0.270-4.200 [facility] Comment on above: Order Comment: Speci men Type: BLOOD SPECIMEN Ordering Facility: [facility] Address: [address] [place] [address] Result Comment: If t he patient is , TSH reference range varies by gestational period: First Trimester (weeks 9-12): 0.180-2.990 mIU/L Second Trimester: 0.110-3.980 mIU/L Third Trimester: 0.480-4.710 mIU/L Warren Rodarte et al. A Practical Approach for the Verifications and Determination of Site- and Trimester-Specific Reference Intervals for Thyroid Function tests in . Thyroid, 2019:29:3:412-420. Henri Clements, et al. 2017 Guidelines of the [place] [employer] for the Diagnosis and Management of Thyroid Disease during and the . Thyroid, 2017:27:3:315-389. Performed By: #### 3 016-3 #### [facility] CLIA [id number] [address] [place] [address] STATES OF [facility] CNOVon 07-08-2024 CNOV Office Visit (PULMWS ) -------- BESSIE SOLOMON ([id number]) 1985 F Date Time Provider Department 07/08/24 2:45 PM TRUE GAYTAN PULMWS During your visit today, we recorded the following information about you: Temperature Pulse Blood pressure Weight 99.9 degrees 64/minute 135/86 83.9 kg True Gaytan MD 07/08/2024 2:54 PM Signed . Respiratory [place] Note Patient name: Bessie Solomon PCP: Diane Bazzi MD CC: Follow up asthma HPI: Bessie Solomon 38 year old female non-smoker with PMH significant for severe asthma. Current therapy consists of Advair, albuterol and Tezspire. Stopped LAMA due to severe LE cramping. Today she states she has been well. No recent URI, ED visits or hospitalization. No wheezing, cough, sputum, SOB. Has been doing well since starting Tezspire. PFTs today are normal and Victoria normal. DATA: ASTHMA CONTROL TEST Date: 07/08/2024 In the last 4 weeks, how much of the time did your asthma keep you from getting as much done at work or home that you wanted to do? None of the time (5) In the last 4 weeks, how often have you had shortness of breath? Not at all (5) In the last 4 weeks, how often did your asthma symptoms (wheezing, coughing, shortness of breath, chest tightness or pain) wake you up at night or earlier than usual? Not at all (5) In the last 4 weeks, how often have you used your rescue inhaler or nebulizer medication (such as Albuterol, Proventil, Ventolin, Maxair, Xoponex, or Primatene Mist)? Once a week or less (4) In the last 4 weeks, how would you rate your asthma control? Completely controlled (5) Total: more than 20 SERVICE DATE: 07/08/2024 SERVICE TIME: 2:07 PM Oral Exhaled Nitric Oxide measurement: 9.0 (ppb) PFT: PAST MEDICAL HISTORY Diagnosis Date Asthma Constipation [...] GI Upset Septra [Sulfamethox* Rash, GI Upset ofloxacin (OCUFLOX) 0.3 % ophthalmic solution Use 1 Drop in the right eye four times daily. keTORolac (ACULAR) 0.5 % ophthalmic solution Use 1 Drop in both eyes four times daily. albuterol (PROVENTIL) 2.5 mg /3 mL (0.083 %) nebulizer solution Use 3 mL via nebulizer every 4 hours as needed for wheezing/shortness of breath. albuterol HFA (VENTOLIN HFA) 90 mcg/actuation inhaler Inhale 2 Puffs as instructed every 4 hours as needed for wheezing/shortness of breath (and before sexertion / exercise). fluticasone (FLONASE) 50 mcg/actuation nasal spray Use 2 Sprays in each nostril once daily. tezepelumab-ekko (TEZSPIRE) 210 mg/1.91 mL (110 mg/mL) injection INJECT 210MG SUBCUTANEOUSLY EVERY 4 WEEKS montelukast (SINGULAIR) 10 mg tablet TAKE 1 TABLET BY MOUTH DAILY AT BEDTIME azelastine 0.1% nasal spray Use 2 Sprays in each nostril two times a day as needed. ondansetron orally disintegrating (ZOFRAN ODT) 4 mg disintegrating tablet Take 1 tablet by mouth every 8 hours as needed for nausea/vomiting. fexofenadine (GM) 180 mg tablet Take 180 mg by mouth once daily as needed. cetirizine (ZYRTEC) 10 mg tablet Take 10 mg by mouth once daily. fluticasone-salmeterol HFA (ADVAIR HFA) 230-21 mcg/actuation inhaler Inhale 2 Puffs as instructed two times a day. fluticasone-salmeterol HFA (ADVAIR) 230-21 mcg/actuation inhaler Inhale 2 Puffs as instructed two times a day. (Patient not taking: Reported on 06/11/2024) PREDNISONE ORAL Take by mouth as needed. Burst (Patient not taking: Reported on 06/11/2024) Social History Tobacco Use Smoking status: Never Passive exposure: Never Smokeless tobacco: Never Vaping Use Vaping status: Never Used Substance Use Topics Alcohol use: Not Currently Drug use: Not Currently Types: Marijuana FAMILY HISTORY Problem Relation Age of Onset other (cerical cancer) Mother Asthma Sister Heart Maternal Grandmother PAST SURGICAL HISTORY Procedure Laterality Date ABDOMINAL SURGERY HX APPENDECTOMY CHOLECYSTECTOMY 09/24/2002 Cholecystectomy COLONOSCOPY 07/23/2023 EGD 07/23/2023 LAPS ABD PRTMANDOMENTUM DX W/WO SPEC BR/WA SPX 11/22/2008 Laparoscopy and DANDC OPEN HIP LABRAL REPAIR (COMP [id number]) Left 12/13/2023 OPEN HIP LABRAL REPAIR (COMP 57311) Right 11/01/2023 PMH, Social history, family history and surgical history reviewed and updated in EMR REVIEW OF SYSTEMS: CONSTITUTIONAL: No fevers, chills, nightsweats, unintended weight loss HEENT: Some nasal congestion/sinus symptoms, problematic allergy problems. CARDIOVASCULAR: No chest p (more content not included)... Normal [facility] NITRIC OXIDE, EXHALEDon 06-24 Ju Bardales RPF T 07/08/2024 2:07 PM RESPIRATORY THERAPY ORAL EXHALED NITRIC OXIDE SERVICE DATE: 07/08/2024 SERVICE TIME: 2:07 PM Oral Exhaled Nitric Oxide measurement: 9.0 (ppb) Normal: Adult <25 ppb, pediatric (<12 years) <20 ppb High Normal / Increased: Adult 25-50 ppb, pediatric (<12 years) 20-35 ppb Moderately raised exhaled Nitric Oxide may indicate underlying inflammation, but note that: Cold and influenza can raise exhaled Nitric Oxide and some patients have higher baseline exhaled Nitric Oxide levels than others. High: Adult >50 ppb, pediatric (<12 years) >35 ppb Indicative of ongoing eosinophilic inflammation. Symptomatic patient likely to respond to steroids. Possible causes (if already on steroids): Poor compliance, recent allergen exposure, steroid dose inadequate, and steroid resistance. Note that not all patients with high exhaled nitric oxide levels display symptoms. Oral Exhaled Nitric Oxide measurement (Previous Encounters) Test Date Oral Exhaled Nitric Oxide (ppb) 07/08/2024 9.0 04/19/2022 9.0 03/30/2022 9.0 07/26/2021 10.0 NAME: Ju JULIAN Bardales PATIENT NAME: Bessie Serena DATE: July 08, 2024 TIME: 2:07 PM [facility] NITRIC OXIDE, EXHALEDOrdered By: Ju Bardales on 07-08-2024 [facility] CNOVon 06-13-2024 CNOV Office Visit (OBGYWM ) -------- BESSIE SOLOMON ([id number]) 1985 F Date Time Provider Department 06/13/24 8:15 AM LELIA NOVAK OBGYWM During your visit today, we recorded the following information about you: Blood pressure Weight Height Last Period 110/60 82.6 kg 1.655 m 05/21/24 Lelia Novak APRN.[facility] 06/13/2024 8:34 AM Signed Sap Senior Developer offered: Patient declines. Bessie is a 38 year old who presents for an annual gynecologic exam without complaints. Pelvic US last year showed small uterine fibroid and ovarian cyst. Recent hip surgery. Menses: cycles every 28-32 days and lasting 4-5 days of flow. Light at first and very heavy x 2 days Not painful Contraception: none and vasectomy HPV vaccine: No Last Pap: 11/17/2021 normal HPV: 11/15/2021 negative History of abnormal pap: No Last mammogram: 2022- repeat for additional views / negative Sexually active: Yes History of STDS: HSV History of fibroids: Yes, History of ovarian cyst: Yes, Pain with intercourse: No Postcoital bleeding: No Hot flashes: No Night sweats: No Vaginal dryness: No OB History T2 L2 SAB0 IAB0 Ectopic0 Multiple0 Live Births0 Advanced Practice Rn History LMP: 05/21/2024 (Exact Date), Having periods Age at Menarche: Age at First : Age at Menopause: Advanced Practice Rn History Comments: Sexual Activity: Yes; Male Contraception: [...] SPEC BR/WA SPX 11/22/2008 Laparoscopy and DANDC OPEN HIP LABRAL REPAIR (COMP [id number]) Left 12/13/2023 OPEN HIP LABRAL REPAIR (COMP [id number]) Right 11/01/2023 FAMILY HISTORY Problem Relation Age of Onset other (cerical cancer) Mother Asthma Sister Heart Maternal Grandmother SOCIAL HISTORY Social History Tobacco Use Smoking status: Never Passive exposure: Never Smokeless tobacco: Never Vaping Use Vaping status: Never Used Substance Use Topics Alcohol use: Not Currently Drug use: Not Currently Types: Marijuana REVIEW OF SYSTEMS Abdomen: No abdominal pain, nausea, vomiting, diarrhea, or constipation. No bloating, early satiety, indigestion, or increased flatulence. Bladder: No dysuria, gross hematuria, urinary frequency, urinary urgency, or incontinence. Breast: No breast lumps, nipple d/c, overlying skin changes, redness or skin retraction. Allergies and current medication updated:Yes SENSITIVE EXAM: The sensitive examination was discussed with the Patient or Patient's Authorized Weatherization Operations Manager. As applicable, any other physician, advance practice provider, medical student, or other health professional student that will be observing or involved in the sensitive examination for educational or training purposes was discussed with the Patient or Authorized Weatherization Operations Manager. The Patient or Authorized Weatherization Operations Manager has agreed to proceed with the sensitive examination. (Sensitive examination includes inspection and/or palpation of the breasts, pelvis, prostate and anorectal regions). EXAM: BP 110/60 Ht 5' 5.157 (1.66m) Wt 182 lb (82.6kg) LMP 05/21/2024 BMI 30.14 kg/(m2). GENERAL: pleasant, female in no apparent distress HEENT: Normocephalic, atraumatic, mucus membranes moist, and no lesions NECK: Supple and full range of motion DERMATOLOGY: Normal and without lesions BREAST: soft, non-tender, symmetric, no dominant mass, normal nipple-areolar complex, no lymphadenopathy, no nipple discharge, and fibrocystic changes CHEST: Normal inspiratory effort ABDOMEN: soft, non-tender, and no masses PELVIC: external genitalia normal, normal Bartholin's glands, urethra, Castle's glands, no vulvar lesions, no cervical lesions, good vaginal support, physiologic discharge present, normal appearing perineal body and perianal region BIMANUAL: uterus normal size, shape and consistency, no adnexal masses, non-tender, and no cervical motion tenderness RECTOVAGINAL: deferred. NEURO: alert and oriented x3,exam grossly non-focal EXTREMITIES: normal ASSESSMENT/PLAN: 1) Health maintenance: Pap/HPV up to date. Mammogram ordered. Nutrition, exercise and routine health maintenance exams reviewed. Lipids/glucose: followed by PCP 2) Contraception: vasectomy. . 3) STD screening: Declined STD check. 4) Follow up one year o (more content not included)... Normal [facility] CNPNon 06-12-2024 CNPN Telephone ([facility]) -------- BESSIE SOLOMON ([id number]) 1985 F Date Time Provider Department 06/12/24 SAM HANKINS During your visit today, we recorded the following information about you: Gina Cyr RN 06/12/2024 8:02 AM Signed Faxed PA renewal form for Dara with [facility] to [facility] at [phone]. Gina Cyr RN 06/16/2024 4:00 PM Signed Butchzspire approved 06-16-24 to 06-16-25. Case # [id number]. Patient aware via . Allergies As of Date: 06/12/2024 Noted Allergy Reaction CLINDAMYCIN 05/09/2010 2 - Rash 8 - GI Upset SEPTRA (SULFAMETHOXAZOLE-TRIMET HO*05/09/2010 2 - Rash 8 - GI Upset Date Reviewed: 06/11/2024 Reviewed by: Sam Hankins MD - Fully Assessed Reason for Visit: [employer] PA Renewal [Other] Prescriptions as of 06/16/2024 - albuterol (PROVENTIL) 2.5 mg /3 mL (0.083 %) nebulizer solution Use 3 mL via nebulizer every 4 hours as needed for wheezing/shortness of breath. - albuterol HFA (VENTOLIN HFA) 90 mcg/actuation inhaler Inhale 2 Puffs as instructed every 4 hours as needed for wheezing/shortness of breath (and before sexertion / exercise). - fluticasone (FLONASE) 50 mcg/actuation nasal spray Use 2 Sprays in each nostril once daily. - tezepelumab-ekko (TEZSPIRE) 210 mg/1.91 mL (110 mg/mL) injection INJECT 210MG SUBCUTANEOUSLY EVERY 4 WEEKS - fluticasone-salmeterol HFA (ADVAIR) 230-21 mcg/actuation inhaler Inhale 2 Puffs as instructed two times a day. - montelukast (SINGULAIR) 10 mg tablet TAKE 1 TABLET BY MOUTH DAILY AT BEDTIME - azelastine 0.1% nasal spray Use 2 Sprays in each nostril two times a day as needed. - ondansetron orally disintegrating (ZOFRAN ODT) 4 mg disintegrating tablet Take 1 tablet by mouth every 8 hours as needed for nausea/vomiting. - PREDNISONE ORAL Take by mouth as needed. Burst - fluticasone-salmeterol HFA (ADVAIR HFA) 230-21 mcg/actuation inhaler Inhale 2 Puffs as instructed two times a day. - fexofenadine (GM) 180 mg tablet Take 180 mg by mouth once daily as needed. - cetirizine (ZYRTEC) 10 mg tablet Take 10 mg by mouth once daily. Problem List As Of Date 06/12/2024 Noted Resolved Irritable bowel syndrome with diarrhea [K58.0] 07/19/2010 Chest pain [R07.9] 04/19/2021 12/04/2023 SOB (shortness of breath) [R06.02] 04/19/2021 Essential hypertension, benign [I10] 04/19/2021 12/04/2023 Stress incontinence in female [N39.3] 11/10/2021 Menorrhagia with regular cycle [N92.0] 11/10/2021 Dysmenorrhea [N94.6] 11/10/2021 Cervical polyp [N84.1] 11/10/2021 Severe persistent asthma without complication [*05/31/2022 Seasonal allergic rhinitis due to pollen [J30.1]05/31/2022 Chronic rhinitis [J31.0] 05/31/2022 Epigastric pain [R10.13] 07/23/2023 Nausea [R11.0] 07/23/2023 Rectal bleeding [K62.5] 07/23/2023 Acetabular labrum tear, unspecified laterality,*09/14/2023 Acetabular labrum tear, left, initial encounter*09/14/2023 Tear of right acetabular labrum [S73.191A] 12/14/2023 Encounter Status:Closed by GINA CYR on 06/16/24 [facility] CNOVon 06-11-2024 CNOV Office Visit (ALLMED ) -------- BESSIE SOLOMON ([id number]) 1985 F Date Time Provider Department 06/11/24 3:30 PM SAM HANKINS During your visit today, we recorded the following information about you: Pulse Blood pressure Weight 75/minute 123/81 85 kg Sam Hankins MD 06/11/2024 4:41 PM Signed ASSESSMENT/PLAN: 1.) Severe persistent asthma: Significant improvement since beginning treatment with Tezspire Continue Advair 230-21 2 puffs twice a day. Continue Singulair 10 mg at bedtime Continue albuterol HFA inhaler with spacer 2 puffs or albuterol 2.5 mg nebulized every 4 hours as needed. Continue Tezspire 210 mg subcutaneously every 4 weeks Continue to follow-up with pulmonary medicine-next appointment with Dr. Gaytan is July 08-she will have updated spirometry and FeNO completed at that time 2.) Mixed allergic (weeds) and nonallergic rhinitis Aggressive environmental controls Continue fluticasone nasal spray to 2 sprays to each nostril once daily in the morning. Continue Astelin 2 sprays to each nostril twice daily as needed. Continue Zyrtec 10 mg once daily. If necessary, she may also take fexofenadine 180 mg once daily as needed. 3.) Discussed medication dosage, usage, side effects, and goals of treatment in detail. 4.) Follow-up in 1 year- patient will return sooner should new symptoms or problems arise. Sam Hankins MD Allergy and Clinical Immunology Bessie Solomon is a 38 year old female with a history of mixed allergic (weeds) and nonallergic rhinitis and severe persistent asthma who presents for a follow-up visit. Her last visit was 05/15/23. She began treatment with Tezspire on June 14, 2022. She has been tolerating this without adverse reaction. Her asthma symptoms have improved significantly since beginning treatment with this medication. Prior to beginning treatment with Tezspire, she was using albuterol 4 or more times per day acute symptoms. She now uses albuterol for acute symptoms approximately once per week. Today. she noted cough and mild shortness of breath when exposed to strong chemical odors at work. Basement was recently remediated for mold. 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 She used short acting beta agonists with resolution of symptoms. Otherwise, typically uses short acting beta agonists up to once per week for acute symptoms. Denies nocturnal awakenings due to respiratory symptoms. She has required treatment with 1-2 courses of systemic steroids for asthma in the past year. No emergency room visits or hospitalizations for respiratory symptoms since her last visit. Although she has noted a mild increase in nasal symptoms recently which she attributes to high weed pollen counts, overall her nasal and ocular symptoms are well-controlled with her current medications. She discontinued use of Spiriva due to muscle cramps associated with use of this medication. (From previous visit: Patient's notes occasional snoring particularly with respiratory illnesses. No witnessed apnea or gasping. No prior sleep study.) (From initial visit on 04/19/22 This is a consultation requested by Dariusz Berry APRN, BENY for an allergy and immunology evaluation. My [...] In July,, methacholine challenge test completed at [facility] was positive. Symbicort 160-4.5 was prescribed at [...] Claritin and Zyrtec without clear relief. Allergen [place] panel completed on March 30, 2022 was negative. No prior allergy skin testing or allergy immunotherapy. She was previously told by her neurologist darion (more content not included)... Normal [facility] CNPNon 06-02-2024 CNPN Telephone ([employer]) -------- BESSIE SOLOMON ([id number]) 1985 F Date Time Provider Department 06/02/24 SAM HANKINS During your visit today, we recorded the following information about you: Alba Barrett RN 06/02/2024 1:42 PM Signed Received fax for KATIE for Derick from [employer]. Will complete next week once current office note is completed . Allergies As of Date: 06/02/2024 Noted Allergy Reaction CLINDAMYCIN 05/09/2010 2 - Rash 8 - GI Upset SEPTRA (SULFAMETHOXAZOLE-TRIMET HO*05/09/2010 2 - Rash 8 - GI Upset Date Reviewed: 03/11/2024 Reviewed by: Elias Frances MA - Fully Assessed Reason for Visit: PA FOR TEZSPIRE 24-25 [Other] Prescriptions as of 06/02/2024 - tezepelumab-ekko (TEZSPIRE) 210 mg/1.91 mL (110 mg/mL) injection INJECT 210MG SUBCUTANEOUSLY EVERY 4 WEEKS - fluticasone-salmeterol HFA (ADVAIR) 230-21 mcg/actuation inhaler Inhale 2 Puffs as instructed two times a day. - montelukast (SINGULAIR) 10 mg tablet TAKE 1 TABLET BY MOUTH DAILY AT BEDTIME - azelastine 0.1% nasal spray Use 2 Sprays in each nostril two times a day as needed. - ondansetron orally disintegrating (ZOFRAN ODT) 4 mg disintegrating tablet Take 1 tablet by mouth every 8 hours as needed for nausea/vomiting. - PREDNISONE ORAL Take by mouth as needed. Burst - fluticasone-salmeterol HFA (ADVAIR HFA) 230-21 mcg/actuation inhaler Inhale 2 Puffs as instructed two times a day. - fluticasone (FLONASE) 50 mcg/actuation nasal spray Use 2 Sprays in each nostril once daily. - tiotropium bromide (SPIRIVA RESPIMAT) 1.25 mcg/actuation mist INHALE 2 PUFFS BY MOUTH INSTRUCTED ONCE DAILY. - albuterol (PROVENTIL) 2.5 mg /3 mL (0.083 %) nebulizer solution Use 3 mL via nebulizer every 4 hours as needed for wheezing/shortness of breath. - fexofenadine (GM) 180 mg tablet Take 180 mg by mouth once daily as needed. - cetirizine (ZYRTEC) 10 mg tablet Take 10 mg by mouth once daily. - albuterol HFA (VENTOLIN HFA) 90 mcg/actuation inhaler Inhale 2 Puffs as instructed every 4 hours as needed for wheezing/shortness of breath (and before sexertion / exercise). Problem List As Of Date 06/02/2024 Noted Resolved Irritable bowel syndrome with diarrhea [K58.0] 07/19/2010 Chest pain [R07.9] 04/19/2021 12/04/2023 SOB (shortness of breath) [R06.02] 04/19/2021 Essential hypertension, benign [I10] 04/19/2021 12/04/2023 Stress incontinence in female [N39.3] 11/10/2021 Menorrhagia with regular cycle [N92.0] 11/10/2021 Dysmenorrhea [N94.6] 11/10/2021 Cervical polyp [N84.1] 11/10/2021 Severe persistent asthma without complication [*05/31/2022 Seasonal allergic rhinitis due to pollen [J30.1]05/31/2022 Chronic rhinitis [J31.0] 05/31/2022 Epigastric pain [R10.13] 07/23/2023 Nausea [R11.0] 07/23/2023 Rectal bleeding [K62.5] 07/23/2023 Acetabular labrum tear, unspecified laterality,*09/14/2023 Acetabular labrum tear, left, initial encounter*09/14/2023 Tear of right acetabular labrum [S73.191A] 12/14/2023 Encounter Status:Closed by ALBA BARRETT on 06/02/24 [facility] CNCOon 05-19-2024 CNCO Letter Text [facility] CNPNon 05-12-2024 CNPN Telephone (ORQ) -------- BESSIE SOLOMON ([id number]) 1985 F Date Time Provider Department 05/12/24 BETSEY PARTIDA ORAnson During your visit today, we recorded the following information about you: Heidy Bullock 05/12/2024 12:17 PM Signed Called patient lvm and sent myc message to reschedule appointment 05/14/[address] Ho Partida. Provider will be out of the office after 2 pm. Abby Garcia 05/12/2024 2:45 PM Signed Patient has been identified by name and date of : Yes Reason for call: Pt called back to reschedule, pt wants something sooner then available but pt also stated she feels fine and just needs a final release to work. Please advise and call pt back. 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 She is s/p staged hip scopes. Last seen 03-11-24. Patient reports she is still having some intermittent sciatic pain however her hips are doing well and she feels she is ready to return to full work duties without restrictions. This was also discussed with Dr. Partida during her last office visit. Letter sent to patient via clearing her for full work duties per her tolerance. Vlad Allen, MEd, AT, ATC Allergies As of Date: 05/12/2024 Noted Allergy Reaction CLINDAMYCIN 05/09/2010 2 - Rash 8 - GI Upset SEPTRA (SULFAMETHOXAZOLE-TRIMET HO*05/09/2010 2 - Rash 8 - GI Upset Date Reviewed: 03/11/2024 Reviewed by: Elias Frances MA - Fully Assessed Reason for Visit: Appointment [186] Prescriptions as of 05/19/2024 - fluticasone-salmeterol HFA (ADVAIR) 230-21 mcg/actuation inhaler Inhale 2 Puffs as instructed two times a day. - montelukast (SINGULAIR) 10 mg tablet TAKE 1 TABLET BY MOUTH DAILY AT BEDTIME - azelastine 0.1% nasal spray Use 2 Sprays in each nostril two times a day as needed. - ondansetron orally disintegrating (ZOFRAN ODT) 4 mg disintegrating tablet Take 1 tablet by mouth every 8 hours as needed for nausea/vomiting. - TEZSPIRE 210 mg/1.91 mL (110 mg/mL) pnij INJECT 210MG SUBCUTANEOUSLY EVERY 4 WEEKS - PREDNISONE ORAL Take by mouth as needed. Burst - fluticasone-salmeterol HFA (ADVAIR HFA) 230-21 mcg/actuation inhaler Inhale 2 Puffs as instructed two times a day. - fluticasone (FLONASE) 50 mcg/actuation nasal spray Use 2 Sprays in each nostril once daily. - tiotropium bromide (SPIRIVA RESPIMAT) 1.25 mcg/actuation mist INHALE 2 PUFFS BY MOUTH INSTRUCTED ONCE DAILY. - albuterol (PROVENTIL) 2.5 mg /3 mL (0.083 %) nebulizer solution Use 3 mL via nebulizer every 4 hours as needed for wheezing/shortness of breath. - fexofenadine (GM) 180 mg tablet Take 180 mg by mouth once daily as needed. - cetirizine (ZYRTEC) 10 mg tablet Take 10 mg by mouth once daily. - albuterol HFA (VENTOLIN HFA) 90 mcg/actuation inhaler Inhale 2 Puffs as instructed every 4 hours as needed for wheezing/shortness of breath (and before sexertion / exercise). Problem List As Of Date 05/12/2024 Noted Resolved Irritable bowel syndrome with diarrhea [K58.0] 07/19/2010 Chest pain [R07.9] 04/19/2021 12/04/2023 SOB (shortness of breath) [R06.02] 04/19/2021 Essential hypertension, benign [I10] 04/19/2021 12/04/2023 Stress incontinence in female [N39.3] 11/10/2021 Menorrhagia with regular cycle [N92.0] 11/10/2021 Dysmenorrhea [N94.6] 11/10/2021 Cervical polyp [N84.1] 11/10/2021 Severe persistent asthma without complication [*05/31/2022 Seasonal allergic rhinitis due to pollen [J30.1]05/31/2022 Chronic rhinitis [J31.0] 05/31/2022 Epigastric pain [R10.13] 07/23/2023 Nausea [R11.0] 07/23/2023 Rectal bleeding [K62.5] 07/23/2023 Acetabular labrum tear, unspecified laterality,*09/14/2023 Acetabular labrum tear, left, initial encounter*09/14/2023 Tear of right acetabular labrum [S73.191A] 12/14/2023 Encounter Status:Closed by HEIDY BULLOCK on 05/12/24 [facility] [id number] 04-11-2024 [id number] HNO ID: [id number] Author: JAJA LEONARD PT Service: ? Author Type: Physical Therapist Type: [id number] Filed: 04/11/2024 13:58 Note Text: [facility] Therapy Physical Therapy Plan of Care Certification Patient Name: Bessie Solomon : 1985 [facility] #: [id number] Date: 04/11/2024 To: Debbie Mustafa PA-C From Therapist: Jaja Leonard PT RE: Patient Certification/ Recertification Your review, approval and electronic signature are required in order to comply with Payor: [employer] / Plan: [employer] PPO / Product Type: PPO / regulations. The identified Physical Therapy PLAN OF CARE for the patient is as follows: S73.199D Acetabular labrum tear, unspecified laterality, subsequent encounter (primary encounter diagnosis) S73.192A Acetabular labrum tear, left, initial encounter S73.191D Tear of right acetabular labrum, subsequent encounter S73.199D Tear of acetabular labrum, unspecified laterality, subsequent encounter PLAN OF CARE UPDATE: Assessment: Bessie Solomon demonstrates difficulty with sitting, rising from a chair, standing, walking, walking in the community, stair negotiation, bending, lifting, recreational activities, kneeling, running, and jumping. She has progressed toward goals. Patient continues to present with impairments in ADL's, flexibility, gait, independence in exercise, joint mobility, overall function, patient reported outcome measures, posture, strength, symptom management, and tissue tenderness that interfere with physical activities, running, working, carrying, lifting, recreational activities, walking in the community, rising from a chair, standing, sitting, bending (ascending steps is painful, descending is ok) . Current prognosis is Good due to: current objective clinical presentation, good overall health status, acuteness of condition, positive past response to therapy, within-session changes, good support system/ coping skills . She will benefit from continued skilled therapy services to meet the updated goals for this plan of care as noted below. Goals for Episode of Care: created on through 02/22/24 Goals updated on 12/07/2023 through 02/10/24 Goals updated on 12/14/2023 through 01/11/24 Goals updated on 01/08/2024 through 02/12/24 Goals updated on 02/20/2024 through 03/26/24 Goals updated on 04/11/2024 through 06/06/24 [place] in home exercise program. -- MET Patient will decrease pain rating by 2 points to meet minimal clinical important difference for numeric pain rating scale. --R and L side -- MET Patient will increase active ROM of R hip to 120 flexion to allow pt to to improve postural alignment. -- MET Patient will demonstrate increase in R and L hip flexion, extension, abduction, IR, and ER strength to 4/5 during manual muscle testing in order to improve function for prior functional tasks. -- Perform transitional sit <> stand with decreased report of symptoms/pain and with independence in 13 weeks. -- MET Normal gait. --MET Reciprocal stair negotiation. -- MET, but with stiffness Patient will increase balance to 20 seconds for single limb stance on RLE and 20 seconds for single limb stance on LLE. -- MET Patient will demonstrate improved neuromuscular coordination as evidenced by improve function for prior functional tasks. -- MET Pt. Will be able to tolerate x 30 -45 minutes of sitting without increased L hip symptoms. -- NEW GOAL Pt. Will be able to amb x 10-15 minutes without increased L back or LLE pain -- NEW GOAL Pt. Will be able to complete sit <> stand from various surfaces without increased L hip or LBP -- NEW GOAL Patient Goals: restore functional ROM and strength of the RLE hip -- PROGRESSING Patient Goals: restore functional ROM and strength of the RLE hip Planned Interventions, Frequency, and Duration: 1x/week, 8 weeks Total Number of Visits Planned: 8 Patient to be seen for Therapeutic exercise (64401), Manual therapy (72306), Self-prison management (05778), Gait Training (54295), Therapeutic activities (58861), Neuromuscular re-education (65179) PLAN FOR NEXT VISIT: assess symtom response to repeated lumbar extension For further details regarding this patient refer to the Physical Therapy electronically documented visit dated 04/11/2024. Provider Attestation I have reviewed the treatment plan for Bessie Solomon, [facility]# [id number] for the period of 04/11/24 -- 06/06/24, established on 04/11/2024. Signature certifies the need for therapy services. [facility] CNTHERAPYon 04-11-2024 CNTHERAPY OT/PT/Speech Visit (PTWS) -------- BESSIE SOLOMON ([id number]) 1985 F Date Time Provider Department 04/11/24 1:15 PM JAJA LEONARD PTDIMITRY Date Time Provider Department [place] 04/11/2024 1:15 PM [id number] LEONARD PTWS Theresa Álvarez Reason for Visit: PT Progress Note [1596] Primary Visit Diagnosis:Acetabular labrum tear, unspecified laterality, subsequent encounter [S73.199D] Other Visit Diagnoses:Acetabular labrum tear, left, initial encounter [S73.192A] Tear of right acetabular labrum, subsequent encounter [S73.191D] Tear of acetabular labrum, unspecified laterality, subsequent encounter [S73.199D] Allergies As of Date: 04/11/2024 Noted Allergy Reaction CLINDAMYCIN 05/09/2010 2 - Rash 8 - GI Upset SEPTRA (SULFAMETHOXAZOLE-TRIMET HO*05/09/2010 2 - Rash 8 - GI Upset Date Reviewed: 03/11/2024 Reviewed by: Elias Frances MA - Fully Assessed Prescriptions as of 04/11/2024 - montelukast (SINGULAIR) 10 mg tablet TAKE 1 TABLET BY MOUTH DAILY AT BEDTIME - azelastine 0.1% nasal spray Use 2 Sprays in each nostril two times a day as needed. - ondansetron orally disintegrating (ZOFRAN ODT) 4 mg disintegrating tablet Take 1 tablet by mouth every 8 hours as needed for nausea/vomiting. - TEZSPIRE 210 mg/1.91 mL (110 mg/mL) pnij INJECT 210MG SUBCUTANEOUSLY EVERY 4 WEEKS - PREDNISONE ORAL Take by mouth as needed. Burst - fluticasone-salmeterol HFA (ADVAIR HFA) 230-21 mcg/actuation inhaler Inhale 2 Puffs as instructed two times a day. - fluticasone (FLONASE) 50 mcg/actuation nasal spray Use 2 Sprays in each nostril once daily. - tiotropium bromide (SPIRIVA RESPIMAT) 1.25 mcg/actuation mist INHALE 2 PUFFS BY MOUTH INSTRUCTED ONCE DAILY. - albuterol (PROVENTIL) 2.5 mg /3 mL (0.083 %) nebulizer solution Use 3 mL via nebulizer every 4 hours as needed for wheezing/shortness of breath. - fexofenadine (GM) 180 mg tablet Take 180 mg by mouth once daily as needed. - cetirizine (ZYRTEC) 10 mg tablet Take 10 mg by mouth once daily. - albuterol HFA (VENTOLIN HFA) 90 mcg/actuation inhaler Inhale 2 Puffs as instructed every 4 hours as needed for wheezing/shortness of breath (and before sexertion / exercise). -------- Assistant Portfolio Manager: Therapy (PT/OT/Speech/Resp) ID: [id number] 04/11/2024 1:33 PM Author: JAJA LEONARD Signed by JAJA LEONARD PT on 04/11/2024 at 1:33 PM Document text: Program_ID:[id number] Access Code: [email or web address] URL: [email or web address] Date: 04-11-2024 Prepared By: Jaja Leonard Program Notes Exercises - Lying Prone - 2-3 x daily - 7 x weekly - sets - reps - Static Prone on Elbows - 2-3 x daily - 7 x weekly - 2-3 sets - 1 reps - Prone Push Ups on Forearms - 2-3 x daily - 7 x weekly - 2-3 sets - 10 reps - Standing Lumbar Extension - 1 x daily - 7 x weekly - 2-3 sets - 10 reps [facility] THERAPY NTon 04-11-2024 THERAPY NT HNO ID: [id number] Author: JAJA LEOANRD PT Service: ? Author Type: Physical Therapist Type: Therapy (PT/OT/Speech/Resp) Filed: 04/11/2024 13:33 Note Text: Program_ID:[id number] Access Code: [email or web address] URL: [email or web address] Date: 04-11-2024 Prepared By: Jaja Leonard Program Notes Exercises - Lying Prone - 2-3 x daily - 7 x weekly - sets - reps - Static Prone on Elbows - 2-3 x daily - 7 x weekly - 2-3 sets - 1 reps - Prone Push Ups on Forearms - 2-3 x daily - 7 x weekly - 2-3 sets - 10 reps - Standing Lumbar Extension - 1 x daily - 7 x weekly - 2-3 sets - 10 reps [facility] CNTHERAPYon 03-18-2024 CNTHERAPY OT/PT/Speech Visit (PTWS) -------- BESSIE SOLOMON ([id number]) 1985 F Date Time Provider Department 03/18/24 6:00 PM JAJA LEONARD PTWS Date Time Provider Department Center 03/18/2024 6:00 PM [id number] LEONARD PTWS Theresa Mohinder Reason for Visit: Physical Therapy [503] Primary Visit Diagnosis:Stress incontinence in female [N39.3] Other Visit Diagnoses:Acetabular labrum tear, unspecified laterality, subsequent encounter [S73.199D] Acetabular labrum tear, left, initial encounter [S73.192A] Tear of right acetabular labrum, subsequent encounter [S73.191D] Tear of acetabular labrum, unspecified laterality, subsequent encounter [S73.199D] Allergies As of Date: 03/18/2024 Noted Allergy Reaction CLINDAMYCIN 05/09/2010 2 - Rash 8 - GI Upset SEPTRA (SULFAMETHOXAZOLE-TRIMET HO*05/09/2010 2 - Rash 8 - GI Upset Date Reviewed: 03/11/2024 Reviewed by: Elias Frances MA - Fully Assessed Prescriptions as of 03/18/2024 - azelastine 0.1% nasal spray Use 2 Sprays in each nostril two times a day as needed. - ondansetron orally disintegrating (ZOFRAN ODT) 4 mg disintegrating tablet Take 1 tablet by mouth every 8 hours as needed for nausea/vomiting. - TEZSPIRE 210 mg/1.91 mL (110 mg/mL) pnij INJECT 210MG SUBCUTANEOUSLY EVERY 4 WEEKS - PREDNISONE ORAL Take by mouth as needed. Burst - fluticasone-salmeterol HFA (ADVAIR HFA) 230-21 mcg/actuation inhaler Inhale 2 Puffs as instructed two times a day. - fluticasone (FLONASE) 50 mcg/actuation nasal spray Use 2 Sprays in each nostril once daily. - montelukast (SINGULAIR) 10 mg tablet Take 1 tablet by mouth daily at bedtime. - tiotropium bromide (SPIRIVA RESPIMAT) 1.25 mcg/actuation mist INHALE 2 PUFFS BY MOUTH INSTRUCTED ONCE DAILY. - albuterol (PROVENTIL) 2.5 mg /3 mL (0.083 %) nebulizer solution Use 3 mL via nebulizer every 4 hours as needed for wheezing/shortness of breath. - fexofenadine (GM) 180 mg tablet Take 180 mg by mouth once daily as needed. - cetirizine (ZYRTEC) 10 mg tablet Take 10 mg by mouth once daily. - albuterol HFA (VENTOLIN HFA) 90 mcg/actuation inhaler Inhale 2 Puffs as instructed every 4 hours as needed for wheezing/shortness of breath (and before sexertion / exercise). -------- Assistant Portfolio Manager: Addendum Therapy (PT/OT/Speech/Resp) ID: [id number] 03/18/2024 6:16 PM Author: JAJA LEONARD Signed by JAJA LEONARD PT on 03/18/2024 at 6:16 PM * * * This document replaces document [id number] * * * Document text: Program_ID:[id number] Access Code: [email or web address] URL: [email or web address] Date: 03-18-2024 Prepared By: Jaja Leonard Program Notes Exercises - Standing Good Morning with Barbell - 2 x daily - 7 x weekly - 4 sets - 10 reps - Dynamic Straight Leg Kicks - 2 x daily - 7 x weekly - 2 sets - reps - Walking Hamstring Stretch - 2 x daily - 7 x weekly - 2 sets - reps - Hamstring Mobilization with Foam Roll - x daily - 7 x weekly - sets - reps - Single-Leg Ukrainian Deadlift With Kettlebell - 1 x daily - 7 x weekly - 2 sets - 8 reps [facility] THERAPY NTon 03-18-2024 THERAPY NT HNO ID: [id number] Author: JAJA LEONARD PT Service: ? Author Type: Physical Therapist Type: Therapy (PT/OT/Speech/Resp) Filed: 03/18/2024 18:16 Note Text: Program_ID:[id number] Access Code: [email or web address] URL: [email or web address] Date: 03-18-2024 Prepared By: Jaja Leonard Program Notes Exercises - Standing Good Morning with Barbell - 2 x daily - 7 x weekly - 4 sets - 10 reps - Dynamic Straight Leg Kicks - 2 x daily - 7 x weekly - 2 sets - reps - Walking Hamstring Stretch - 2 x daily - 7 x weekly - 2 sets - reps - Hamstring Mobilization with Foam Roll - x daily - 7 x weekly - sets - reps - Single-Leg Ukrainian Deadlift With Kettlebell - 1 x daily - 7 x weekly - 2 sets - 8 reps [facility] CNCOon 03-11-2024 CNCO Letter Text [facility] CNOVon 03-11-2024 CNOV Office Visit (SPHTB) -------- BESSIE SOLOMON ([id number]) 1985 F Date Time Provider Department 03/11/24 10:45 AM BETSEY PARTIDA SPHTB During your visit today, we recorded the following information about you: Betsey Partida MD 03/11/2024 12:11 PM Signed DEPARTMENT OF ORTHOPAEDICS Chief Complaint: Bilateral hip pain Patient returns for follow up of bilateral staged hip arthroscopy. Last seen 01-25-24. Patient reports no interim trauma. She reports she is doing well. She is back to work, with restrictions. She is going to PT 2x/week Goal = return to hiking She does express some discomfort on the lateral aspect of her left thigh. PHYSICAL EXAM: LMP 12/06/2023 General: Appears stated age, well built, in no apparent distress. Psychiatric: Mood and affect appropriate. Alert and oriented x 3 without evidence of abnormal respiratory effort. Musculoskeletal Exam: Gait normal, Posture: erect and normal. Exam: Right Left Single Leg Trendelenburg Negative Positive Hip flexion 100 100 IR 20 20 ER 60 60 Anterior impingement negative negative Dynamic labral stress negative negative FAHAD negative negative Posterior Impingement negative negative MILADYS negative negative Strength Supine HF 5/5 5/5 Upright HF 5/5 5/5 Adduction 5/5 5/5 Abduction 5/5 5-/5 Tenderness with Palpation: Right Left Greater Troch Negative Negative Gluteus Medius Negative Negative Piriformis Negative Negative IMPRESSION: (S73.191D) Tear of right acetabular labrum, subsequent encounter (primary encounter diagnosis) (S73.192D) Acetabular labrum tear, left, subsequent encounter PLAN: 1. Medication: None. 2. Test(s)/Imaging/Referral (s): None. 3. Intervention: Continue conservative treatment post op stage hip arthroscopy. Patient is progressing well. Continue with PT per protocol. Discussed keeping the same work restrictions (updated letter provided today) however if she feels she is ready at some point prior to her next visit to lift some of her work restrictions she will let us know. Patient is on board with the plan and all questions were answered. They will let us know if there are any issues in the interim. 4. Follow-up: Return in about 8 weeks (around 05/06/2024). Scribe Attestation: By signing my name below, I, AUSTIN Yung, attest that this documentation has been prepared under the direction and in the presence of Betsey Partida M.D. Electronically Signed:AUSTIN Yung, March 11, 2024 10:51 AM I agree with the Chief Complaint, ROS, and Past Histories independently gathered by the clinical litigation support analyst and the remaining scribed note accurately describes my personal service to the patient. Betsey Partida MD Allergies As of Date: 03/11/2024 Noted Allergy Reaction CLINDAMYCIN 05/09/2010 2 - Rash 8 - GI Upset SEPTRA (SULFAMETHOXAZOLE-TRIMET HO*05/09/2010 2 - Rash 8 - GI Upset Date Reviewed: 03/11/2024 Reviewed by: Elias Frances MA - Fully Assessed Reason for Visit: Post Op [174] Primary Visit Diagnosis:Tear of right acetabular labrum, subsequent encounter [S73.191D] Other Visit Diagnosis:Acetabular labrum tear, left, subsequent encounter [S73.192D] Prescriptions as of 03/11/2024 - azelastine 0.1% nasal spray Use 2 Sprays in each nostril two times a day as needed. - ondansetron orally disintegrating (ZOFRAN ODT) 4 mg disintegrating tablet Take 1 tablet by mouth every 8 hours as needed for nausea/vomiting. - TEZSPIRE 210 mg/1.91 mL (110 mg/mL) pnij INJECT 210MG SUBCUTANEOUSLY EVERY 4 WEEKS - PREDNISONE ORAL Take by mouth as needed. Burst - fluticasone-salmeterol HFA (ADVAIR HFA) 230-21 mcg/actuation inhaler Inhale 2 Puffs as instructed two times a day. - fluticasone (FLONASE) 50 mcg/actuation nasal spray Use 2 Sprays in each nostril once daily. - montelukast (SINGULAIR) 10 mg tablet Take 1 tablet by mouth daily at bedtime. - tiotropium bromide (SPIRIVA RESPIMAT) 1.25 mcg/actuation mist INHALE 2 PUFFS BY MOUTH INSTRUCTED ONCE DAILY. - albuterol (PROVENTIL) 2.5 mg /3 mL (0.083 %) nebulizer solution Use 3 mL via nebulizer every 4 hours as needed for wheezing/shortness of breath. - fexofenadine (GM) 180 mg tablet Take 180 mg by mouth once daily as needed. - cetirizine (ZYRTEC) 10 mg tablet Take 10 mg by mouth once daily. - albuterol HFA (VENTOLIN HFA) 90 mcg/actuation inhaler Inhale 2 Puffs as instructed every 4 hours as needed for wheezing/shortness of breath (and before sexertion / exercise). Problem List As Of Date 03/11/2024 Noted Resolved Irritable bowel syndrome with diarrhea [K58.0] 07/19/2010 Chest pain [R07.9] 04/19/2021 12/04/2023 SOB (shortness of breath) [R06.02] 04/19/2021 Essential hypertension, benign [I10] 04/19/2021 12/04/2023 Stress incontinence in female [N39.3] 11/10/2021 Menorrhagia with regular cycle [N92.0] 11/10/2021 Dysme (more content not included)... [facility] CNTHERAPYon 03-10-2024 CNTHERAPY OT/PT/Speech Visit (PTWS) -------- BESSIE SOLOMON ([id number]) 1985 F Date Time Provider Department 03/10/24 6:00 PM CLAIR MELENDEZ PTDIMITRY Date Time Provider Department Center 03/10/2024 6:00 PM [id number], MARIAH PTWS Theresa Álvarez Reason for Visit: Physical Therapy [503] Primary Visit Diagnosis:Acetabular labrum tear, left, initial encounter [S73.192A] Other Visit Diagnosis:Tear of right acetabular labrum, subsequent encounter [S73.191D] Allergies As of Date: 03/10/2024 Noted Allergy Reaction CLINDAMYCIN 05/09/2010 2 - Rash 8 - GI Upset SEPTRA (SULFAMETHOXAZOLE-TRIMET HO*05/09/2010 2 - Rash 8 - GI Upset Date Reviewed: 12/25/2023 Reviewed by: Margareth Steel MA - Fully Assessed Prescriptions as of 03/11/2024 - azelastine 0.1% nasal spray Use 2 Sprays in each nostril two times a day as needed. - ondansetron orally disintegrating (ZOFRAN ODT) 4 mg disintegrating tablet Take 1 tablet by mouth every 8 hours as needed for nausea/vomiting. - TEZSPIRE 210 mg/1.91 mL (110 mg/mL) pnij INJECT 210MG SUBCUTANEOUSLY EVERY 4 WEEKS - PREDNISONE ORAL Take by mouth as needed. Burst - fluticasone-salmeterol HFA (ADVAIR HFA) 230-21 mcg/actuation inhaler Inhale 2 Puffs as instructed two times a day. - fluticasone (FLONASE) 50 mcg/actuation nasal spray Use 2 Sprays in each nostril once daily. - montelukast (SINGULAIR) 10 mg tablet Take 1 tablet by mouth daily at bedtime. - tiotropium bromide (SPIRIVA RESPIMAT) 1.25 mcg/actuation mist INHALE 2 PUFFS BY MOUTH INSTRUCTED ONCE DAILY. - albuterol (PROVENTIL) 2.5 mg /3 mL (0.083 %) nebulizer solution Use 3 mL via nebulizer every 4 hours as needed for wheezing/shortness of breath. - fexofenadine (GM) 180 mg tablet Take 180 mg by mouth once daily as needed. - cetirizine (ZYRTEC) 10 mg tablet Take 10 mg by mouth once daily. - albuterol HFA (VENTOLIN HFA) 90 mcg/actuation inhaler Inhale 2 Puffs as instructed every 4 hours as needed for wheezing/shortness of breath (and before sexertion / exercise). -------- [facility] CNTHERAPYon 03-05-2024 CNTHERAPY OT/PT/Speech Visit (PTWS) -------- BESSIE SOLOMON ([id number]) 1985 F Date Time Provider Department 03/05/24 6:00 PM JAJA LEONARD PTWS Date Time Provider Department Center 03/05/2024 6:00 PM [id number] LEONARD PTWS Theresa Álvarez Reason for Visit: Physical Therapy [503] Primary Visit Diagnosis:Acetabular labrum tear, left, initial encounter [S73.192A] Other Visit Diagnoses:Tear of right acetabular labrum, subsequent encounter [S73.191D] Tear of acetabular labrum, unspecified laterality, subsequent encounter [S73.199D] Acetabular labrum tear, unspecified laterality, subsequent encounter [S73.199D] Allergies As of Date: 03/05/2024 Noted Allergy Reaction CLINDAMYCIN 05/09/2010 2 - Rash 8 - GI Upset SEPTRA (SULFAMETHOXAZOLE-TRIMET HO*05/09/2010 2 - Rash 8 - GI Upset Date Reviewed: 12/25/2023 Reviewed by: Margareth Steel MA - Fully Assessed Prescriptions as of 03/05/2024 - azelastine 0.1% nasal spray Use 2 Sprays in each nostril two times a day as needed. - ondansetron orally disintegrating (ZOFRAN ODT) 4 mg disintegrating tablet Take 1 tablet by mouth every 8 hours as needed for nausea/vomiting. - TEZSPIRE 210 mg/1.91 mL (110 mg/mL) pnij INJECT 210MG SUBCUTANEOUSLY EVERY 4 WEEKS - PREDNISONE ORAL Take by mouth as needed. Burst - fluticasone-salmeterol HFA (ADVAIR HFA) 230-21 mcg/actuation inhaler Inhale 2 Puffs as instructed two times a day. - fluticasone (FLONASE) 50 mcg/actuation nasal spray Use 2 Sprays in each nostril once daily. - montelukast (SINGULAIR) 10 mg tablet Take 1 tablet by mouth daily at bedtime. - tiotropium bromide (SPIRIVA RESPIMAT) 1.25 mcg/actuation mist INHALE 2 PUFFS BY MOUTH INSTRUCTED ONCE DAILY. - albuterol (PROVENTIL) 2.5 mg /3 mL (0.083 %) nebulizer solution Use 3 mL via nebulizer every 4 hours as needed for wheezing/shortness of breath. - fexofenadine (GM) 180 mg tablet Take 180 mg by mouth once daily as needed. - cetirizine (ZYRTEC) 10 mg tablet Take 10 mg by mouth once daily. - albuterol HFA (VENTOLIN HFA) 90 mcg/actuation inhaler Inhale 2 Puffs as instructed every 4 hours as needed for wheezing/shortness of breath (and before sexertion / exercise). -------- Assistant Portfolio Manager: Addendum Therapy (PT/OT/Speech/Resp) ID: [id number] 03/05/2024 6:18 PM Author: JAJA LEONARD Signed by JAJA LEONARD PT on 03/05/2024 at 6:18 PM * * * This document replaces document [id number] * * * Document text: Program_ID:[id number] Access Code: [email or web address] URL: [email or web address] Date: 03-05-2024 Prepared By: Jaja Leonard Program Notes Exercises - Runner's Step Up on BOSUA? Ball - 1 x daily - 7 x weekly - 2 sets - 12 reps - Squat on BOSUA? Ball - 1 x daily - 7 x weekly - 2 sets - 15 reps - Standing Hip Abduction on BOSUA? Ball - 1 x daily - 7 x weekly - 2 sets - 12 reps - Single Leg Balance on BOSUA? Ball - 1 x daily - 7 x weekly - 4 sets - reps - cc BOSU Deadlift - 1 x daily - 7 x weekly - 4 sets - 10 reps Normal [facility] THERAPY NTon 03-05-2024 THERAPY NT HNO ID: [id number] Author: JAJA LEONARD PT Service: ? Author Type: Physical Therapist Type: Therapy (PT/OT/Speech/Resp) Filed: 03/05/2024 18:18 Note Text: Program_ID:[id number] Access Code: [email or web address] URL: [email or web address] Date: 03-05-2024 Prepared By: Jaja Leonard Program Notes Exercises - Runner's Step Up on BOSUA? Ball - 1 x daily - 7 x weekly - 2 sets - 12 reps - Squat on BOSUA? Ball - 1 x daily - 7 x weekly - 2 sets - 15 reps - Standing Hip Abduction on BOSUA? Ball - 1 x daily - 7 x weekly - 2 sets - 12 reps - Single Leg Balance on BOSUA? Ball - 1 x daily - 7 x weekly - 4 sets - reps - cc BOSU Deadlift - 1 x daily - 7 x weekly - 4 sets - 10 reps Normal [facility] CNTHERAPYon 02-27-2024 CNTHERAPY OT/PT/Speech Visit (PTWS) -------- BESSIE SOLOMON ([id number]) 1985 F Date Time Provider Department 02/27/24 6:00 PM CLAIR MELENDEZ PTDIMITRY Date Time Provider Department Center 02/27/2024 6:00 PM [id number], MARIAH PTDIMITRY Álvarez Reason for Visit: Physical Therapy [503] Primary Visit Diagnosis:Acetabular labrum tear, left, initial encounter [S73.192A] Other Visit Diagnosis:Tear of right acetabular labrum, subsequent encounter [S73.191D] Allergies As of Date: 02/27/2024 Noted Allergy Reaction CLINDAMYCIN 05/09/2010 2 - Rash 8 - GI Upset SEPTRA (SULFAMETHOXAZOLE-TRIMET HO*05/09/2010 2 - Rash 8 - GI Upset Date Reviewed: 12/25/2023 Reviewed by: Margareth Steel MA - Fully Assessed Prescriptions as of 02/28/2024 - azelastine 0.1% nasal spray Use 2 Sprays in each nostril two times a day as needed. - ondansetron orally disintegrating (ZOFRAN ODT) 4 mg disintegrating tablet Take 1 tablet by mouth every 8 hours as needed for nausea/vomiting. - TEZSPIRE 210 mg/1.91 mL (110 mg/mL) pnij INJECT 210MG SUBCUTANEOUSLY EVERY 4 WEEKS - PREDNISONE ORAL Take by mouth as needed. Burst - fluticasone-salmeterol HFA (ADVAIR HFA) 230-21 mcg/actuation inhaler Inhale 2 Puffs as instructed two times a day. - fluticasone (FLONASE) 50 mcg/actuation nasal spray Use 2 Sprays in each nostril once daily. - montelukast (SINGULAIR) 10 mg tablet Take 1 tablet by mouth daily at bedtime. - tiotropium bromide (SPIRIVA RESPIMAT) 1.25 mcg/actuation mist INHALE 2 PUFFS BY MOUTH INSTRUCTED ONCE DAILY. - albuterol (PROVENTIL) 2.5 mg /3 mL (0.083 %) nebulizer solution Use 3 mL via nebulizer every 4 hours as needed for wheezing/shortness of breath. - fexofenadine (GM) 180 mg tablet Take 180 mg by mouth once daily as needed. - cetirizine (ZYRTEC) 10 mg tablet Take 10 mg by mouth once daily. - albuterol HFA (VENTOLIN HFA) 90 mcg/actuation inhaler Inhale 2 Puffs as instructed every 4 hours as needed for wheezing/shortness of breath (and before sexertion / exercise). -------- Normal [facility] CNTHERAPYon 02-25-2024 CNTHERAPY OT/PT/Speech Visit (PTWS) -------- BESSIE SOLOMON ([id number]) 1985 F Date Time Provider Department 02/25/24 6:00 PM CLAIR MELENDEZ PTDIMITRY Date Time Provider Department [place] 02/25/2024 6:00 PM [id number], MARIAH PTWS Theresa Álvarez Reason for Visit: Physical Therapy [503] Primary Visit Diagnosis:Acetabular labrum tear, left, initial encounter [S73.192A] Other Visit Diagnoses:Tear of right acetabular labrum, subsequent encounter [S73.191D] Tear of acetabular labrum, unspecified laterality, subsequent encounter [S73.199D] Acetabular labrum tear, unspecified laterality, subsequent encounter [S73.199D] Allergies As of Date: 02/25/2024 Noted Allergy Reaction CLINDAMYCIN 05/09/2010 2 - Rash 8 - GI Upset SEPTRA (SULFAMETHOXAZOLE-TRIMET HO*05/09/2010 2 - Rash 8 - GI Upset Date Reviewed: 12/25/2023 Reviewed by: Margareth Steel MA - Fully Assessed Prescriptions as of 02/26/2024 - azelastine 0.1% nasal spray Use 2 Sprays in each nostril two times a day as needed. - ondansetron orally disintegrating (ZOFRAN ODT) 4 mg disintegrating tablet Take 1 tablet by mouth every 8 hours as needed for nausea/vomiting. - TEZSPIRE 210 mg/1.91 mL (110 mg/mL) pnij INJECT 210MG SUBCUTANEOUSLY EVERY 4 WEEKS - PREDNISONE ORAL Take by mouth as needed. Burst - fluticasone-salmeterol HFA (ADVAIR HFA) 230-21 mcg/actuation inhaler Inhale 2 Puffs as instructed two times a day. - fluticasone (FLONASE) 50 mcg/actuation nasal spray Use 2 Sprays in each nostril once daily. - montelukast (SINGULAIR) 10 mg tablet Take 1 tablet by mouth daily at bedtime. - tiotropium bromide (SPIRIVA RESPIMAT) 1.25 mcg/actuation mist INHALE 2 PUFFS BY MOUTH INSTRUCTED ONCE DAILY. - albuterol (PROVENTIL) 2.5 mg /3 mL (0.083 %) nebulizer solution Use 3 mL via nebulizer every 4 hours as needed for wheezing/shortness of breath. - fexofenadine (GM) 180 mg tablet Take 180 mg by mouth once daily as needed. - cetirizine (ZYRTEC) 10 mg tablet Take 10 mg by mouth once daily. - albuterol HFA (VENTOLIN HFA) 90 mcg/actuation inhaler Inhale 2 Puffs as instructed every 4 hours as needed for wheezing/shortness of breath (and before sexertion / exercise). -------- Normal [facility] ANES POSTPROC EVALon 024 ANES POSTPROC EVAL HNO ID: [id number] Author: BEN JOHNS MD Service: Anesthesiology Author Type: Anesthesiologist Type: Anesthesia Postprocedure Evaluation Filed: 12/13/2023 15:37 Note Text: POST ANESTHESIA EVALUATION NOTE : 1985 Procedure Summary Date: 12/13/23 Room / Location: [place] [address] / [facility] Anesthesia Start: 1041 Anesthesia Stop: 1222 Procedure: ARTHROSCOPY HIP W/ LABRAL REPAIR (Left: Hip) Diagnosis: Acetabular labrum tear, left, initial encounter (Acetabular labrum tear, left, initial encounter [S73.192A]) Surgeons: Betsey Partida MD Responsible Provider: Ben Johns MD Anesthesia Type: general ASA Status: 2 Anesthesia Type: general Airway Type: ETT Last Vitals Vitals Value Taken Time BP 99/57 12/13/23 1343 Temp 36.2 ?C (97.2 ?F) 12/13/23 1343 HR SpO2 65 12/13/23 1343 Resp 14 12/13/23 1343 SpO2 100 % 12/13/23 1343 Post Anesthesia Patient Status Patient Evaluation: PACU. PACU/ICU Patient Condition: stable. Anticipated Disposition: phase 2 then home. Neurological Status: aware and responsive. Pulmonary Status: breathing comfortably on room air Airway Control: returned to baseline unsupported. Cardiovascular Status: stable. Pain Management: clinically adequate - multimodal analgesia pain management approach Postoperative Hydration: acceptable. Intraoperative Events: no significant anesthesia events Recommendation: continue current plan of care. Anesthesia Observations No Documentation SIGNATURE: Ben Johns MD PATIENT NAME: Bessie Solomon DATE: December 13, 2023 TIME: 3:37 PM CSN: [id number] [facility] ANES PRE-OPon 12-13-2023 ANES PRE-OP HNO ID: [id number] Author: BEN JOHNS MD Service: Anesthesiology Author Type: Anesthesiologist Type: Anesthesia Preprocedure Evaluation Filed: 12/13/2023 09:42 Note Text: ANESTHESIOLOGY DAY OF SURGERY NOTE : 1985 Procedure Information Date/Time: 12/13/23 1100 Procedure: ARTHROSCOPY HIP W/ LABRAL REPAIR (Left: Hip) - Left hip scope labral repair/ debridement, acetabuloplasty, femoroplasty. Location: [id number] / [facility] Surgeons: Betsey Partida MD Estimated body mass index is 27.96 kg/m? as calculated from the following: Height as of this encounter: 165.1 cm (5' 5). Weight as of this encounter: 76.2 kg (168 lb). Most recent hematocrit and potassium results: Hematocrit 38.1 06/16/2023 Potassium 3.9 06/16/2023 Relevant Problems PULMONARY (+) SOB (shortness of breath) (+) Severe persistent asthma without complication I - PHYSICAL EVALUATION AIRWAY Patient intubated: No. Tracheostomy tube not present Mallampati: II. TM distance: >3 FB. Neck ROM: full ROM without neurological symptoms. Mouth opening: adequate. Short neck: no. Thick neck: no DENTAL Dental findings: teeth intact. Additional exam findings: no II - ANESTHESIA PLAN ASA Score: 2 Anesthetic Plan: general Airway type: ETT NPO Status: adequate Anesthetic plan additional comments: Heart RRR Lungs Clear. Beta Fransisco Monitoring Plan Monitoring plan: Standard ASA. Post Procedure Analgesic Plan Postoperative analgesic plan: parenteral or oral opioids and multimodal analgesia. Informed Consent Anesthetic risks, benefits, alternatives, personnel and consent discussed: yes. Patient / Responsible Constitution Party agrees to proceed: yes Patient / Surrogate agrees to blood products: yes DNR status not reviewed with patient and/or family prior to surgery. Significant changes in the patient condition since the History and Physical, not otherwise documented in primary service progress note: no. Potential Anesthesia issues that may suggest increased risk of complications or contraindication to planned procedure: none. Discussed the possibility of lip / dental damage: yes Vitals Value Taken Time BP 124/84 12/13/23917 Pulse 63 12/13/23917 Resp 16 12/13/23917 Temp 37.1 ?C (98.8 ?F) 12/13/23917 SpO2 100 % 12/13/23917 Facility-Administered Medications as of 12/13/2023 Medication Dose Route Frequency - lidocaine 10 mg/mL (1 %) 1-2 mg injection (XYLOCAINE) 0.1-0.2 mL INTRADERMAL PRN - lactated ringers iv infusion 5-30 mL/hr INTRAVENOUS CONTINUOUS - NaCl 0.9% iv flush bag 20 mL INTRAVENOUS PRN - ceFAZolin iv piggyback 2 g in D5W (iso-osmotic) 100 mL (ANCEF) 2 g INTRAVENOUS Pre-Op Once - [COMPLETED] acetaminophen 1,000 mg tab(s) (TYLENOL) 1,000 mg ORAL Pre-Op Once - [COMPLETED] diazePAM 5 mg tab(s) (VALIUM) 5 mg ORAL Pre-Op Once - lactated ringers iv infusion 50 mL/hr INTRAVENOUS CONTINUOUS - fentaNYL 50 mcg/mL 50 mcg injection (SUBLIMAZE) 50 mcg INTRAVENOUS q 10 MIN PRN - HYDROmorphone 0.2 mg injection (DILAUDID) 0.2 mg INTRAVENOUS q 5 MIN PRN - oxyCODONE IR 5 mg tab(s) (ROXICODONE) 5 mg ORAL PRN - acetaminophen 650 mg tab(s) (TYLENOL) 650 mg ORAL PRN - ondansetron 4 mg tab(s) (ZOFRAN) 4 mg ORAL q 6 H PRN Or - ondansetron (PF) 4 mg injection (ZOFRAN) 4 mg INTRAVENOUS q 6 H PRN - prochlorperazine 10 mg injection (COMPAZINE) 10 mg INTRAVENOUS q 6 H PRN - meperidine (PF) 12.5 mg injection (DEMEROL) 12.5 mg INTRAVENOUS q 10 MIN PRN Outpatient Medications as of 12/13/2023 Medication Sig - fluticasone-salmeterol HFA (ADVAIR HFA) 230-21 mcg/actuation inhaler Inhale 2 Puffs as instructed two times a day. - azelastine 0.1% nasal spray Use 2 Sprays in each nostril twice daily as needed. - fluticasone (FLONASE) 50 mcg/actuation nasal spray Use 2 Sprays in each nostril once daily. - montelukast (SINGULAIR) 10 mg tablet Take 1 tablet by mouth daily at bedtime. - cetirizine (ZYRTEC) 10 mg tablet Take 10 mg by mouth once daily. - acetaminophen 325 mg cap Take by mouth as needed. - ondansetron orally disintegrating (ZOFRAN ODT) 4 mg disintegrating tablet Take 1 tablet by mouth every 8 hours as needed for nausea/vomiting. - TEZSPIRE 210 mg/1.91 mL (110 mg/mL) pnij INJECT 210MG SUBCUTANEOUSLY EVERY 4 WEEKS - PREDNISONE ORAL Take by mouth as needed. Burst - tiotropium bromide (SPIRIVA RESPIMAT) 1.25 mcg/actuation mist INHALE 2 PUFFS BY MOUTH INSTRUCTED ONCE DAILY. - albuterol (PROVENTIL) 2.5 mg /3 mL (0.083 %) nebulizer solution Use 3 mL via nebulizer every 4 hours as needed for wheezing/shortness of breath. - fexofenadine (GM) 180 mg tablet Take 180 mg by mouth as needed. - albuterol HFA (VENTOLIN HFA) 90 mcg/actuation inhaler Inhale 2 Puffs as instructed every 4 hours as needed for wheezing/shortness of breath (and before sexertion / exercise). I have interviewed and examined the patient. I have reviewed the medical record and/or the pre-anesthesia (more content not included)... [facility] BRIEF OP NOTon 12-13-2023 BRIEF OP NOT HNO ID: [id number] Author: MOIRA CATALAN MD Service: ? Author Type: Fellow Type: Brief Op Note Filed: 12/13/2023 12:20 Note Text: BRIEF OPERATIVE / PROCEDURE NOTE LOG ID: [id number] SURGERY/PROCEDURE DATE: 12/13/2023 INCISION/PROCEDURE START TIME: 11:03 AM INCISION CLOSE/PROCEDURE END TIME: 12:12 PM SURGEON(S)/PROCEDURALIST (S) AND COLORED LIQUID PLASTIC APPLIER(S): Surgeon(s) and Role: * Betsey Partida MD - Primary * Moira Catalan MD - Fellow Physician Route Sales Associate: Debbie Mustafa PA-C SURGERY/PROCEDURE(S): Left hip arthroscopic labral repair, femoroplasty, acetabuloplasty, capsular closure ANESTHESIA: General FINDINGS: Left labral tear, large pincer lesion, cam lesion ESTIMATED BLOOD LOSS: 20 mls SPECIMENS: None COMPLICATIONS: None CLOSURE TECHNIQUE: Primary PRE-OP/PRE-PROCEDURE DIAGNOSIS: Left hip labral tear, combined femoral acetabular impingement POST-OP/POST-PROCEDURE DIAGNOSIS: Same as Preop SIGNATURE: Moira Catalan MD PATIENT NAME: Bessie Solomon DATE: December 13, 2023 TIME: 12:19 PM [facility] HISTORY PHYSICALon HISTORY PHYSICAL HNO ID: [id number] Author: BETSEY PARTIDA MD Service: Orthopaedic Surgery Author Type: Physician Type: H&P Filed: 12/13/2023 10:40 Note Text: UPDATED HISTORY AND PHYSICAL EXAMINATION SERVICE DATE: 12/13/2023 SERVICE TIME: 1030 PHYSICAL EXAM MUST BE COMPLETED ON ADMISSION The History and Physical (completed in the past 30 days) has been reviewed and the patient has been examined. The contents accurately reflect the patient's condition with the following additions or revisions since the HANDP was completed. Examination indicates no changes. This HANDP can be found in the Electronic Medical Record dated 12/04/23. SIGNATURE: Betsey Partida MD PATIENT NAME: Bessie Solomon DATE: December 13, 2023 TIME: 10:40 AM [facility] NURSING PROGon 12-13-2023 NURSING PROG HNO ID: [id number] Author: GUY WESTBROOK, MICKEY Service: Nursing Author Type: Registered Nurse Type: Nursing Progress Note Filed: 12/13/2023 14:00 Note Text: POST OP LEARNING RESPONSE INSTRUCTION PROVIDED TO: Patient and Spouse METHOD OF INSTRUCTION: Written instruction - handouts Verbal instruction PATIENT / FAMILY RESPONSE: Verbalizes understanding of: discharge instructions FOLLOW-UP PLAN: Patient instructed to call with any further issues SUPPLEMENTAL MATERIAL: None REFERRAL (RECOMMENDATION): Physical Therapy (Outpatient) Electronically Signed By: Guy Westbrook RN In Department: [facility] NURSING PROG HNO ID: [id number] Author: JOYA VICTORIA RN Service: ? Author Type: Registered Nurse Type: Nursing Progress Note Filed: 12/13/2023 09:22 Note Text: PRE OP LEARNING ASSESSMENT PROCEDURE/SURGERY: SURGERY: left hip READINESS TO LEARN COGNITIVE ABILITY: Alert and oriented MOTIVATION TO LEARN: Interested FAMILY SUPPORT: High - Very involved in pt care PATIENT LEARNS BEST BY: Verbal Instruction FACTORS AFFECTING LEARNING: None PHYSICAL LIMITATIONS AFFECTING LEARNING: None Electronically Signed By: Joya Victoria RN In Department: [facility] OPERATIVE NOon 12-13-2023 OPERATIVE NO HNO ID: [id number] Author: BETSEY PARTIDA MD Service: Orthopaedic Surgery Author Type: Physician Type: Operative Report Filed: 12/13/2023 12:21 Note Text: [facility] Operative Report ORIGINATOR: Betsey Partida MD Bessie Solomon ACCTNUM: SERVICE: [id number] ATTENDING PHYSICIAN: Betsey Partida MD DATE OF PROCEDURE: December 13, 2023 SURGEON: Betsey Partida MD COLORED LIQUID PLASTIC APPLIER: Moira Catalan MD PREOPERATIVE DIAGNOSIS: Left hip acetabular labral tear S73.192A Left hip femoroacetabular impingement M25.852 Left pain in joint, pelvic region and thigh M25.552 POSTOPERATIVE DIAGNOSIS: Left hip acetabular labral tear S73.192A Left hip femoroacetabular impingement M25.852 Left pain in joint, pelvic region and thigh M25.552 OPERATION: 1. left hip arthroscopy. 2. Acetabuloplasty CPT 19838 3. Labral repair. CPT 62320 4. Femoroplasty. CPT 92240 5. Capsular Closure ANESTHESIA: General LOCATION: [facility] Surgery [place]. OPERATIVE INDICATIONS: The patient is a pleasant 38 year old, female with recurrent left hip/ groin complaints not amenable to conservative treatment. Exacerbating factors: prolonged sitting, ADL's, pivoting/ lateral movements, activities requiring hip flexion greater than 90 degrees Correlating physical exam findings, including positive anterior impingement and FAHAD tests, with her imaging it was felt that she had a left hip labral tear with impingement. MRI: left acetabular labral tear Radiographs: maintained joint spaces Tonnis grade: 0 Alpha angle to lateral 55 degrees We discussed treatment options both surgical and nonsurgical. We discussed the expectations, risks, benefits, alternatives of the above mentioned procedure, she voiced understanding and then wished to proceed. DESCRIPTION OF OPERATION: The patient was brought to [facility] operative suite 6 on December 13, 2023, after marking the appropriate surgical extremity in the preoperative holding area. Brought in the operative suite, placed on the operative table, and induced under general anesthesia. she was placed distally on the postless pink pad system. Both feet were secured in traction boots. The left upper extremity was placed across the chest. Care was taken to pad the ulnar nerve. Under fluoroscopic guidance and complete muscle relaxation, left hip was distracted. The lateral aspect of the greater trochanter was prepped with Betadine. The vacuum suction seal was then removed from the joint with an 18-gauge spinal needle. The hip was then reduced and then prepped and draped in usual sterile fashion. After appropriate surgical time-out including all members of the surgical team, confirming the site and extremity, ensuring administrative assistant receptionist of 2gm of IV Ancef, the hip was again distracted. The standard anterolateral and mid anterior portal were created. Exam of the hip joint revealed an anterosuperior labral tear from the 9 position on the clock face over to 12 with labral/chondral wave sign. The deep anterior wall, dome, posterior wall, posterior labrum, femoral head, ligamentum teres were intact. An interportal cut capsulotomy was performed. A labral takedown was performed in the area of tear. We exposed 3 mm of acetabular bone by 2.2 cm in length. We then used the 5.0 mm ryder to perform the acetabuloplasty. Once this was completed, 3 1.8 mm Knotless Fibertak anchors were placed. Simple suture configuration was employed and the labrum was secured down to the prepared bone in a very stable fashion. Once this was completed, repeat exam of the joint revealed no further chondral changes. The hip was then reduced at 33 minutes. Labral seal was restored upon the reduction of the hip. The head-neck junction was identified distally after making a small T in the capsule. The loss of head/neck junction offset was easily identifiable. A 5.0 mm ryder was used to perform the femoroplasty. We used live fluoroscopic views in multiple hip flexion angles and direct visualization to ensure adequate, but notover resection from 7 to 12 on the clockface, ensuring good contour from the lateral epiphyseal vessels to the medial synovial fold. All loose bony debris was debrided from the joint. Capsular closure was then performed with 3 #2 Ultrabraid sutures. This reduced the iliofemoral ligament and capsule in a very stable fashion. All excess fluid was removed. The hip was injected with a cocktail of 20 mL of 0.5% ropivacaine and 2 mg of Duramorph for postoperative analgesia. The arthroscopic instruments were then removed. The wounds were then closed with interrupted 3-0 Prolene, with a 3-0 Monocryl deep for the mid anterior portal as well, followed by Steri-Strips and sterile dressing. The patient was then awakened from general anesthesia and taken to PACU in stable condition. COMPLICATIONS: None. SPECIMENS: None. FLUIDS: See anesthesia record. ST (more content not included)... Normal [facility] HISTORY PHYSICALon HISTORY PHYSICAL HNO ID: [id number] Author: JIM RASHID PA-C Service: ? Author Type: Physician Route Sales Associate Type: H&P Filed: 12/04/2023 09:33 Note Text: HISTORY AND PHYSICAL EXAMINATION SERVICE DATE: 12/04/2023 SERVICE TIME: 9:33 AM PRIMARY CARE PHYSICIAN: Diane Bazzi MD Assessment Patient has the following medical conditions which may affect lukas-operative course: Severe persistent asthma without complication Assessment: Follows with , last OV 09/15. Compliant on inhalers. Denies recent exacerbations or hospitalizations. Reports mostly controlled with [place]zsp[place], advair and spiriva daily. Occasional use of albuterol, most with exercise or allergy flares. Irritable bowel syndrome with diarrhea Assessment: Reports recent dx, believes agitated by severe pain and stress. Reports losing 40 lbs since 06/16, but has stabilized. Griffin Activity Status Index: METS: Participate in moderate recreational activites, such as golf, bowling, dancing, doubles tennis, or throwing a baseball or football (6.00 METs) DASI Score: 6 Patient denies any chest pain or undue shortness of breath with the above physical activity. Clinical Frailty Scale: 3. Well, with treated comorbid disease STOP-Bang Score: Snores loudly Denies feeling tired, fatigued, or sleepy during the daytime Has not been observed to stop breathing or choking/gasping during sleep Denies having high blood pressure BMI less than or equal to 35 kg/m2 Patient 50 years old or younger Does not have a large neck Non-male patient STOP-Bang Score: 1 [id number] Score: Age: <65 Sex: female CHF history: No Stroke/TIA/thromboemboli sm history: No Vascular disease history: No Diabetes history: No [id number] Score: ARISCAT Score: Age: <=50 Preoperative SpO2: >=96% Respiratory infection in the last month: No Preoperative anemia: Yes Surgical incision: peripheral Duration of surgery: 2-3 hrs Emergency procedure: No ARISCAT Score: 27 ANESTHESIA FINDINGS: Intubation History: No history of difficult intubation. No abnormal airway history Significant Anesthesia Considerations: none Airway History: No history of difficult airway No abnormal airway history 11/17: I - PHYSICAL EVALUATION AIRWAY Patient intubated: No. Tracheostomy tube not present Mallampati: II. TM distance: >3 FB. Neck ROM: full ROM without neurological symptoms. Mouth opening: adequate. Short neck: no. Thick neck: no Lip Bite Test: I DENTAL Additional comments: Invisaline liners with brackets, + crown. II - ANESTHESIA PLAN Anesthetic Plan: other Anesthetic plan additional comments: *PACC/TCI - anesthesia choice. Beta Fransisco Monitoring Plan Post Procedure Analgesic Plan Prepared for Surgery: optimally prepared for surgery. Per PACC guidelines no other testing is required CONSULTS: Patient does not require consults for optimization at this time Planned Anesthetic: other anesthesia choice REASON FOR VISIT: Bessie Solomon is a 38 year old female who is scheduled for Procedure(s) with comments: ARTHROSCOPY HIP W/ LABRAL REPAIR (Left) - Left hip scope labral repair/ debridement, acetabuloplasty, femoroplasty. at the request of Betsey Valdes MD for consultation. My final recommendation will be communicated back to the requesting physician by way of shared medical record or letter. 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 CHIEF COMPLAINT: Pre-anesthesia optimization HPI: Bessie Solomon is a 38 year old female presenting for pre-anesthesia consultation. Pt has history of bilateral hip pain, had right hip arthroscopy last month. Reports R>L hip pain. + labral tear Above procedure recommended to manage symptoms. Procedure scheduled on 12/13/2023 at [facility]. REVIEW OF SYSTEMS: General: Positive for: unintentional weight change. Patient's weight loss: 40 lbs in 6 months Negative for: fever. Neurological: No history of TIA's, stroke, SIDE PULLER tumor, impaired sensorium, hemiplegia, paraplegia or quadraplegia. No neurological symptoms or problems. Respir (more content not included)... Normal [facility] ANES POSTPROC EVALon 024 ANES POSTPROC EVAL HNO ID: [id number] Author: SAI HILTON MD Service: Anesthesiology Author Type: Physician Type: Anesthesia Postprocedure Evaluation Filed: 11/01/2023 16:07 Note Text: POST ANESTHESIA EVALUATION NOTE : 1985 Procedure Summary Date: 11/01/23 Room / Location: [place] [address] / [facility] Anesthesia Start: 1303 Anesthesia Stop: 1450 Procedure: ARTHROSCOPY HIP W/ LABRAL REPAIR (Right: Hip) Diagnosis: Tear of right acetabular labrum, subsequent encounter (Tear of right acetabular labrum, subsequent encounter [S73.191D]) Surgeons: Betsey Partida MD Responsible Provider: Pedrito Sotomayor MD Anesthesia Type: general ASA Status: 2 Anesthesia Type: general Airway Type: ETT Last Vitals Vitals Value Taken Time BP 112/59 11/01/23 1545 Temp 36.3 ?C (97.4 ?F) 11/01/23 1545 Pulse 68 11/01/23 1554 Resp 15 11/01/23 1554 SpO2 97 % 11/01/23 1554 Vitals shown include unfiled device data. Post Anesthesia Patient Status Patient Evaluation: PACU. PACU/ICU Patient Condition: stable. Anticipated Disposition: phase 2 then home. Neurological Status: aware and responsive. Pulmonary Status: breathing comfortably on room air Airway Control: returned to baseline unsupported. Cardiovascular Status: stable. Pain Management: clinically adequate - multimodal analgesia pain management approach Postoperative Hydration: acceptable. Intraoperative Events: no significant anesthesia events Recommendation: continue current plan of care. Anesthesia Observations No Documentation SIGNATURE: Sai Hilton MD PATIENT NAME: Bessie Solomon DATE: November 01, 2023 TIME: 4:07 PM CSN: [id number] [facility] ANES PRE-OPon 11-01-2023 ANES PRE-OP HNO ID: [id number] Author: PEDRITO SOTOMAYOR MD Service: Anesthesiology Author Type: Anesthesiologist Type: Anesthesia Preprocedure Evaluation Filed: 11/01/2023 12:11 Note Text: ANESTHESIOLOGY DAY OF SURGERY NOTE : 1985 Procedure Information Date/Time: 11/01/23 1330 Procedure: ARTHROSCOPY HIP W/ LABRAL REPAIR (Right: Hip) - Right hip arthroscopy labral repair/ debridement, femoroplasty, acetabuloplasty [facility]: [facility] Surgeons: Betsey Partida MD Estimated body mass index is 27.62 kg/m? as calculated from the following: Height as of this encounter: 165.1 cm (5' 5). Weight as of 10/24/23: 75.3 kg (166 lb). Most recent hematocrit and potassium results: Hematocrit 38.1 06/16/2023 Potassium 3.9 06/16/2023 Relevant Problems CARDIO (+) Essential hypertension, benign PULMONARY (+) SOB (shortness of breath) (+) Severe persistent asthma without complication I - PHYSICAL EVALUATION AIRWAY Patient intubated: No. Tracheostomy tube not present Mallampati: II. TM distance: >3 FB. Neck ROM: full ROM without neurological symptoms. Mouth opening: adequate. Short neck: no. Thick neck: no Additional exam findings: yes. CARDIOVASCULAR Normal cardiovascular observations. PULMONARY Normal pulmonary observations. II - ANESTHESIA PLAN ASA Score: 2 Anesthetic Plan: general Airway type: ETT The patient is not a current smoker. NPO Status: adequate Beta Fransisco Monitoring Plan Monitoring plan: standard ASA. Post Procedure Analgesic Plan Postoperative analgesic plan: parenteral or oral opioids. Informed Consent Anesthetic risks, benefits, alternatives, personnel and consent discussed: yes. Patient / Responsible Constitution Party agrees to proceed: yes Patient / Surrogate agrees to blood products: blood products not planned Potential Anesthesia issues that may suggest increased risk of complications or contraindication to planned procedure: none. Vitals Value Taken Time BP 132/76 11/01/23 1139 Pulse 84 11/01/23 1139 Resp 20 11/01/23 1139 Temp 36.7 ?C (98 ?F) 11/01/23 1139 SpO2 99 % 11/01/23 1139 Facility-Administered Medications as of 11/01/2023 Medication Dose Route Frequency - lidocaine 10 mg/mL (1 %) 1-2 mg injection (XYLOCAINE) 0.1-0.2 mL INTRADERMAL PRN - lactated ringers iv infusion 5-30 mL/hr INTRAVENOUS CONTINUOUS - NaCl 0.9% iv flush bag 20 mL INTRAVENOUS PRN - ceFAZolin iv piggyback 2 g in D5W (iso-osmotic) 100 mL (ANCEF) 2 g INTRAVENOUS Pre-Op Once - [COMPLETED] diazePAM 5 mg tab(s) (VALIUM) 5 mg ORAL ONCE - [COMPLETED] acetaminophen 1,000 mg tab(s) (TYLENOL) 1,000 mg ORAL ONCE - scopolamine 1 mg over 3 days 1 Patch (TRANSDERM-SCOP) 1 Patch TRANSDERMAL q 72 HR And - [START ON 11/04/2023] scopolamine - REMOVE PATCH OTHER q 72 HR And - scopolamine - VERIFY patch OTHER q 8 H Outpatient Medications as of 11/01/2023 Medication Sig - fluticasone-salmeterol HFA (ADVAIR HFA) 230-21 mcg/actuation inhaler Inhale 2 Puffs as instructed two times a day. - azelastine 0.1% nasal spray Use 2 Sprays in each nostril twice daily as needed. - fluticasone (FLONASE) 50 mcg/actuation nasal spray Use 2 Sprays in each nostril once daily. - montelukast (SINGULAIR) 10 mg tablet Take 1 tablet by mouth daily at bedtime. - tiotropium bromide (SPIRIVA RESPIMAT) 1.25 mcg/actuation mist INHALE 2 PUFFS BY MOUTH INSTRUCTED ONCE DAILY. - albuterol (PROVENTIL) 2.5 mg /3 mL (0.083 %) nebulizer solution Use 3 mL via nebulizer every 4 hours as needed for wheezing/shortness of breath. - fexofenadine (GM) 180 mg tablet Take 180 mg by mouth as needed. - cetirizine (ZYRTEC) 10 mg tablet Take 10 mg by mouth once daily. - albuterol HFA (VENTOLIN HFA) 90 mcg/actuation inhaler Inhale 2 Puffs as instructed every 4 hours as needed for wheezing/shortness of breath (and before sexertion / exercise). - acetaminophen 325 mg cap Take by mouth as needed. I have interviewed and examined the patient. I have reviewed the medical record and/or the pre-anesthesia evaluation, pertinent labs, and test results. This contains updated information obtained within 48 hours of Surgery/Procedure. SIGNATURE: Pedrito Sotomayor MD PATIENT NAME: Bessie Solomon DATE: November 01, 2023 TIME: 12:10 PM CSN: [id number] [facility] HISTORY PHYSICALon HISTORY PHYSICAL HNO ID: [id number] Author: BETSEY PARTIDA MD Service: Orthopaedic Surgery Author Type: Physician Type: H&P Filed: 11/01/2023 13:03 Note Text: UPDATED HISTORY AND PHYSICAL EXAMINATION SERVICE DATE: 11/01/2023 SERVICE TIME: 1255 Code Status: Not on file PHYSICAL EXAM MUST BE COMPLETED ON ADMISSION The History and Physical (completed in the past 30 days) has been reviewed and the patient has been examined. The contents accurately reflect the patient's condition with the following additions or revisions since the HANDP was completed. Examination indicates no changes. This HANDP can be found in the Electronic Medical Record dated 10/24/23. SIGNATURE: Betsey Partida MD PATIENT NAME: Bessie Solomon DATE: November 01, 2023 TIME: 1:02 PM [facility] NURSING PROGon 11-01-2023 NURSING PROG HNO ID: [id number] Author: AURE RODRÍGUEZ RN Service: Nursing Author Type: Registered Nurse Type: Nursing Progress Note Filed: 11/01/2023 15:00 Note Text: POST OP LEARNING RESPONSE INSTRUCTION PROVIDED TO: Patient and Spouse METHOD OF INSTRUCTION: Individual instruction Written instruction - handouts Verbal instruction PATIENT / FAMILY RESPONSE: Verbalizes understanding of: POST-OPERATIVE INSTRUCTIONS-Correct actions to take to reduce postoperative complications FOLLOW-UP PLAN: Complete - No need for follow-up SUPPLEMENTAL MATERIAL: None REFERRAL (RECOMMENDATION): None Electronically Signed By: Aure Rodríguez RN In Department: [facility] AMBULATORY SURGERY - [facility] NURSING PROG HNO ID: [id number] Author: NISHANT TURNER RN Service: ? Author Type: Registered Nurse Type: Nursing Progress Note Filed: 11/01/2023 12:20 Note Text: Patient states that she gets very severe post op nausea with vomiting and also is very sensitive to pain medication causing her to sleep and not wake up [facility] NURSING PROG HNO ID: [id number] Author: NISHANT TURNER RN Service: ? Author Type: Registered Nurse Type: Nursing Progress Note Filed: 11/01/2023 11:46 Note Text: PRE OP LEARNING ASSESSMENT PROCEDURE/SURGERY: right hip READINESS TO LEARN COGNITIVE ABILITY: Alert and oriented MOTIVATION TO LEARN: Eager FAMILY SUPPORT: None - Unavailable/disintereste d PATIENT LEARNS BEST BY: Written Instruction - Hand-outs Verbal Instruction FACTORS AFFECTING LEARNING: None PHYSICAL LIMITATIONS AFFECTING LEARNING: None Electronically Signed By: Nishant Turner RN In Department: [facility] [place]ULATORY SURG[place] [facility] [place] [facility] OPERATIVE NOon 11-01-2023 OPERATIVE NO HNO ID: [id number] Author: BETSEY PARTIDA MD Service: Orthopaedic Surgery Author Type: Physician Type: Operative Report Filed: 11/01/2023 14:48 Note Text: [facility] Operative Report ORIGINATOR: Betsey Partida MD Bessie Solomon ACCTNUM: SERVICE: ORTHO LOCATION: [place] [id number] ATTENDING PHYSICIAN: Betsey Partida MD DATE OF PROCEDURE: November 01, 2023 SURGEON: Betsey Partida MD COLORED LIQUID PLASTIC APPLIER: Darrel Fuller MD PREOPERATIVE DIAGNOSIS: Right hip acetabular labral tear S73.191A Right hip femoroacetabular impingement M25.851 Right pain in joint, pelvic region and thigh M25.551 POSTOPERATIVE DIAGNOSIS: Right hip acetabular labral tear S73.191A Right hip femoroacetabular impingement M25.851 Right pain in joint, pelvic region and thigh M25.551 OPERATION: 1. right hip arthroscopy. 2. Acetabuloplasty CPT 34358 3. Labral repair. CPT 10593 4. Femoroplasty. CPT 22115 5. Capsular Closure ANESTHESIA: General LOCATION: [facility] [place]. OPERATIVE INDICATIONS: The patient is a pleasant 38 year old, female with recurrent right hip/ groin complaints not amenable to conservative treatment. Exacerbating factors: prolonged sitting, ADL's, pivoting/ lateral movements, activities requiring hip flexion greater than 90 degrees Correlating physical exam findings, including positive anterior impingement and FAHAD tests, with her imaging it was felt that she had a right hip labral tear with impingement. MRI: right acetabular labral tear Radiographs: maintained joint spaces Tonnis grade: 0 Alpha angle to lateral 51 degrees We discussed treatment options both surgical and nonsurgical. We discussed the expectations, risks, benefits, alternatives of the above mentioned procedure, she voiced understanding and then wished to proceed. DESCRIPTION OF OPERATION: The patient was brought to [facility] operative suite 2 on November 01, 2023, after marking the appropriate surgical extremity in the preoperative holding area. Brought in the operative suite, placed on the operative table, and induced under general anesthesia. she was placed distally on the postless pink pad system. Both feet were secured in traction boots. The right upper extremity was placed across the chest. Care was taken to pad the ulnar nerve. Under fluoroscopic guidance and complete muscle relaxation, right hip was distracted. The lateral aspect of the greater trochanter was prepped with Betadine. The vacuum suction seal was then removed from the joint with an 18-gauge spinal needle. The hip was then reduced and then prepped and draped in usual sterile fashion. After appropriate surgical time-out including all members of the surgical team, confirming the site and extremity, ensuring administrative assistant receptionist of 2gm of IV Ancef, the hip was again distracted. The standard anterolateral and mid anterior portal were created. Exam of the hip joint revealed an anterosuperior labral tear from the 12 position on the clock face over to 3 with labral chondral wave sign. The deep anterior wall, dome, posterior wall, posterior labrum, femoral head, ligamentum teres were intact. An interportal cut capsulotomy was performed. A labral takedown was performed in the area of tear. We exposed 4 mm of acetabular bone by 2.2 cm in length. We then used the 5.0 mm ryder to perform the acetabuloplasty. Once this was completed, 3 1.8 mm Knotless Fibertak anchors were placed. Simple suture configuration was employed and the labrum was secured down to the prepared bone in a very stable fashion. Once this was completed, repeat exam of the joint revealed no further chondral changes. The hip was then reduced at 39 minutes. Labral seal was restored upon the reduction of the hip. The head-neck junction was identified distally after making a small T in the capsule. The loss of head/neck junction offset was easily identifiable. A 5.0 mm ryder was used to perform the femoroplasty. We used live fluoroscopic views in multiple hip flexion angles and direct visualization to ensure adequate, but not over resection from 12 to 5 on the clockface, ensuring good contour from the lateral epiphyseal vessels to the medial synovial fold. All loose bony debris was debrided from the joint. Capsular closure was then performed with 3 #2 Ultrabraid sutures. This reduced the iliofemoral ligament and capsule in a very stable fashion. All excess fluid was removed. The hip was injected with a cocktail of 20 mL of 0.5% ropivacaine and 2 mg of Duramorph for postoperative analgesia. The arthroscopic instruments were then removed. The wounds were then closed with interrupted 3-0 Prolene, with a 3-0 Monocryl deep for the mid anterior portal as well, followed by Steri-Strips and sterile dressing. The patient was then awakened from general anesthesia and taken to PACU in stable condition. COMPLICATIONS: None. SPECIMENS: None. FLUIDS: See anest (more content not included)... [facility] XR HIP BILATERAL 5V PEL/AP/L AT EACH HIPon 10-26-2023 IMPRESSION: Maintained bilateral hip joints. Condominium Property Manager: [facility]ITALWanda Transcribe Date/Time: Oct 26 2023 10:57A Dictated by : HUNTER OSORIO MD This examination was interpreted and the report reviewed and electronically signed by: HUNTER OSORIO MD on Oct 26 2023 10:58AM [facility] DIVISION OF RADIOLOGY * * *Final Report* * * DATE OF EXAM: Oct 26 2023 10:47AM SHX [id number] - XR HIP LAKISHA 5V PEL+ AP/LAT EA HIP / PROCEDURE REASON: Tear of right acetabular labrum, subsequent encounter * * * * Physician Interpretation * * * * EXAMINATION: XR HIP LAKISHA 5V PEL+ AP/LAT EA HIP HISTORY: BILATERAL HIP PAIN. RIGHT IS WORSE Tear of right acetabular labrum, subsequent encounter . TECHNIQUE: XR HIP LAKISHA 5V PEL+ AP/LAT EA HIP Laterality: BILATERAL Number of different views (projections): 3 EACH M: XB_1 COMPARISON: 05/25/2023 RESULT: Maintained sacroiliac joints and pubic symphysis. Hip joints are maintained bilaterally. No acute bone destruction. Unchanged bone island in the right femoral neck. No acute fracture or dislocation. There are no bony erosions. DIVISION OF RADIOLOGY Provider, [facility] - 10/26/2023 * * *Final Report* * * DATE OF EXAM: Oct 26 2023 10:47AM SHX [id number] - XR HIP LAKISHA 5V PEL+ AP/LAT EA HIP / PROCEDURE REASON: Tear of right acetabular labrum, subsequent encounter * * * * Physician Interpretation * * * * EXAMINATION: XR HIP LAKISHA 5V PEL+ AP/LAT EA HIP HISTORY: BILATERAL HIP PAIN. RIGHT IS WORSE Tear of right acetabular labrum, subsequent encounter . TECHNIQUE: XR HIP LAKISHA 5V PEL+ AP/LAT EA HIP Laterality: BILATERAL Number of different views (projections): 3 EACH M: XB_1 COMPARISON: 05/25/2023 RESULT: Maintained sacroiliac joints and pubic symphysis. Hip joints are maintained bilaterally. No acute bone destruction. Unchanged bone island in the right femoral neck. No acute fracture or dislocation. There are no bony erosions. IMPRESSION IMPRESSION: Maintained bilateral hip joints. Condominium Property Manager: [facility] Transcribe Date/Time: Oct 26 2023 10:57A Dictated by : HUNTER OSORIO MD This examination was interpreted and the report reviewed and electronically signed by: HUNTER OSORIO MD on Oct 26 2023 10:58AM EST [facility] Radiology Study observation (narrative) [facility] XR HIP BILATERAL 5V PEL/AP/L AT EACH HIPOrdered By: Ccf Provider on 10-26-2023 [facility] No Panel InformationOrdered By: Abdelrahman Shukla on 09-27-2023 Miscellaneous Test See comment [facility] Comment on above: TEST RESULTS LIMITSC ryptosporidium EIA Negative Negative TESTING PERFORMED AT [facility]. ORIGINAL REPORT ON FILE IN LAB CONTAINS ADDITIONAL TEST SITE INFORMATION. Stool Calprotectin 5 ug/g 0-120 [facility] Comment on above: Concentration Interp retation Follow-Up< 5 - 50 ug/g Normal None>50 -120 ug/g Borderline Re-evaluate in 4-6 weeks >120 ug/g Abnormal Repeat as clinically indicatedPerformed at: [address] [id number] Director: Abdelrahman Casillas PhD, Phone: [phone] at: [address] [id number] Director: Allegra Pulido MD, Phone: [phone] Stool Neutral Fats Normal . [facility] Comment on above: Normal (<60 Droplets /HPF) Qualitative fecal fat or lip idsOrdered By: Abdelramhan Shukla on 09-27-2023 Fat Ql (Stl) Normal . [facility] Comment on above: Normal (<100 Droplet s/HPF) MRI HIP WO IVCON RIGHTon [facility] C-REACTIVE PROTEIN (CRP)on 0 06-16-2023 CRP [Mass/Vol] <0.9 mg/dL [facility] CBC W Auto Differential pane l (Bld)on 06-16-2023 Basophils (Bld) [#/Vol] 0.04 10*3/uL <0.11 k/uL [facility] Basophils/100 WBC (Bld) 0.9 % [facility] Differential cell count method Nom (Bld) Auto [facility] Eosinophils (Bld) [#/Vol] <0.46 k/uL [facility] Eosinophils/100 WBC (Bld) 0.5 % [facility] Erythrocyte distribution width (RBC) [Ratio] 12.9 % 11.5 - 15.0 % [facility] Hematocrit (Bld) [Volume fraction] 38.1 % 36.0 - 46.0 % [facility] Hemoglobin (Bld) [Mass/Vol] 12.2 g/dL 11.5 - 15.5 g/dL [facility] Immature granulocytes (Bld) [#/Vol] <0.10 k/uL [facility] Immature granulocytes/100 WBC (Bld) 0.2 % [facility] Lymphocytes (Bld) [#/Vol] 0.99 10*3/uL Low 1.00 - 4.00 k/uL [facility] Lymphocytes/100 WBC (Bld) 22.3 % [facility] MCH (RBC) [Entitic mass] 30.0 pg 26.0 - 34.0 pg [facility] MCHC (RBC) [Mass/Vol] 32.0 g/dL 30.5 - 36.0 g/dL [facility] MCV (RBC) [Entitic vol] 93.8 fL 80.0 - 100.0 fL [facility] Monocytes (Bld) [#/Vol] 0.60 10*3/uL <0.87 k/uL [facility] Monocytes/100 WBC (Bld) 13.5 % [facility] Neutrophils (Bld) [#/Vol] 2.77 10*3/uL 1.45 - 7.50 k/uL [facility] Neutrophils/100 WBC (Bld) 62.6 % [facility] Nucleated RBC (Bld) [#/Vol] <0.01 k/uL [facility] Nucleated RBC/100 WBC (Bld) [Ratio] 0.0 /100 WBC [facility] Platelet mean volume (Bld) [Entitic vol] 12.4 fL 9.0 - 12.7 fL [facility] Platelets (Bld) [#/Vol] 170 10*3/uL 150 - 400 k/uL [facility] RBC (Bld) [#/Vol] 4.06 10*6/uL 3.90 - 5.2 0 m/uL [facility] WBC (Bld) [#/Vol] 4.43 10*3/uL 3.70 - 11.00 k/uL [facility] Comprehensive metabolic 2000 panelon 06-16-2023 Albumin [Mass/Vol] 4.2 g/dL 3.9 - 4.9 g/dL [facility] ALP [Catalytic activity/Vol] 52 U/L 34 - 123 U/L [facility] ALT [Catalytic activity/Vol] 20 U/L 7 - 38 U/L [facility] Anion gap [Moles/Vol] 11 mmol/L 9 - 18 mmol/L [facility] AST [Catalytic activity/Vol] 27 U/L 13 - 35 U/L [facility] Bilirubin [Mass/Vol] 0.6 mg/dL 0.2 - 1 .3 mg/dL [facility] Calcium [Mass/Vol] 9.1 mg/dL 8.5 - 10. 2 mg/dL [facility] Chloride [Moles/Vol] 106 mmol/L High 97 - 10 5 mmol/L [facility] CO2 [Moles/Vol] 23 mmol/L 22 - 30 mmol/L [facility] Creatinine [Mass/Vol] 0.70 mg/dL 0.58 - 0.96 mg/dL [facility] Estimated Glomerular Filtration Rate 113 mL/min/1.73m >=60 mL/min/1.73 m [facility] Glucose [Mass/Vol] 83 mg/dL 74 - 99 mg/dL [facility] Potassium [Moles/Vol] 3.9 mmol/L 3.7 - 5.1 mmol/L [facility] Protein [Mass/Vol] 6.5 g/dL 6.3 - 8.0 g/dL [facility] Sodium [Moles/Vol] 140 mmol/L 136 - 144 mmol/L [facility] Urea nitrogen [Mass/Vol] 11 mg/dL 7 - 21 mg/dL [facility] ESR Westergren method (Bld) [Velocity]on 06-16-2023 ESR (Bld) [Velocity] 5 mm/h 0 - 20 mm/hr [facility] T3 FREE BLDon 06-16-2023 Free T3 [Mass/Vol] 2.6 pg/mL 2.3 - 4.1 pg/mL [facility] T4 FREE/FREE THYROXon 2022 Free T4 [Mass/Vol] 1.0 ng/dL 0.9 - 1.7 ng/dL [facility] TSH BLDon 06-16-2023 TSH Qn 2.150 m[IU]/L 0.270 - 4.200 mIU/L [facility] XR HIP BILATERAL 5V PEL/AP/L AT EACH HIPon 05-30-2023 IMPRESSION: Maintained bilateral hip joints. Condominium Property Manager: KELI Transcribe Date/Time: May 30 2023 7:59A Dictated by : HUNTER OSORIO MD This examination was interpreted and the report reviewed and electronically signed by: HUNTER OSORIO MD on May 30 2023 7:59AM [facility] DIVISION OF RADIOLOGY * * *Final Report* * * DATE OF EXAM: May 25 2023 1:23PM WOX [id number] - XR HIP LAKISHA 5V PEL+ AP/LAT EA HIP / PROCEDURE REASON: multiple diagnoses * * * * Physician Interpretation * * * * EXAMINATION: XR HIP LAKISHA 5V PEL+ AP/LAT EA HIP HISTORY: Worsening bilateral hip pain since September. No known injury. Bilateral hip pain Bilateral hip pain . TECHNIQUE: XR HIP LAKISHA 5V PEL+ AP/LAT EA HIP Laterality: BILATERAL Number of different views (projections): 5 M: XB_1 COMPARISON: RESULT: Maintained sacroiliac joints and pubic symphysis. Bilateral hip joints are maintained. Minimal hypertrophic change around the right hip. Small bone island in the right femoral neck. No acute fracture or dislocation. There are no bony erosions. DIVISION OF RADIOLOGY Provider, Ana [facility] - 05/30/2023 * * *Final Report* * * DATE OF EXAM: May 25 2023 1:23PM WOX [id number] - XR HIP LAKISHA 5V PEL+ AP/LAT EA HIP / PROCEDURE REASON: multiple diagnoses * * * * Physician Interpretation * * * * EXAMINATION: XR HIP LAKISHA 5V PEL+ AP/LAT EA HIP HISTORY: Worsening bilateral hip pain since September. No known injury. Bilateral hip pain Bilateral hip pain . TECHNIQUE: XR HIP LAKISHA 5V PEL+ AP/LAT EA HIP Laterality: BILATERAL Number of different views (projections): 5 M: XB_1 COMPARISON: RESULT: Maintained sacroiliac joints and pubic symphysis. Bilateral hip joints are maintained. Minimal hypertrophic change around the right hip. Small bone island in the right femoral neck. No acute fracture or dislocation. There are no bony erosions. IMPRESSION IMPRESSION: Maintained bilateral hip joints. Condominium Property Manager: PSCB Transcribe Date/Time: May 30 2023 7:59A Dictated by : HUNTER OSORIO MD This examination was interpreted and the report reviewed and electronically signed by: HUNTER OSORIO MD on May 30 2023 7:59AM EST [facility] XR HIP BILATERAL 5V PEL/AP/L AT EACH HIPOrdered By: Ccf Provider on 05-30-2023 [facility] XR HIP BILATERAL 5V PEL/AP/L AT EACH HIPon 05-25-2023 Radiology Study observation (narrative) [facility] NITRIC OXIDE, EXHALEDon 07-2 [facility] SPIROMETRY - BASELINE AND PO ST DILATORon 04-19-2022 WCT13-50% POST (L/S) 2.76 L/S [facility] TFX87-48% PRE (L/S) 2.48 L/S [facility] FEV1 PRE (L) 3.28 L [facility] FEV1/FVC POST (%) 0.78 % [facility] FEV1/FVC PRE (%) 0.73 % [facility] FEV1_POST (L) 3.36 L [facility] FVC POST (L) 4.31 L [facility] FVC PRE (L) 4.48 L [facility] PEF POST (L/S) 6.49 L/S [facility] PEF PRE (L/S) 6.74 L/S [facility] Eosinophils Auto (Bld) [#/Vo l]on 03-30-2022 Eosinophils (Bld) [#/Vol] 0.05 10*3/uL <0.46 k/uL [facility] XR Chest PA and Lateralon IMPRESSION: No acute radiographic abnormality. Condominium Property Manager: PSCB Transcribe Date/Time: Dec 31 2021 8:29A Dictated by : SYDNEY JEFFERS MD This examination was interpreted and the report reviewed and electronically signed by: SYDNEY JEFFERS MD on Dec 31 2021 8:30AM [facility] DIVISION OF RADIOLOGY * * *Final Report* * * DATE OF EXAM: Dec 31 2021 8:23AM WOX [id number] - XR CHEST 2V FRONTAL/LAT / PROCEDURE REASON: multiple diagnoses * * * * Physician Interpretation * * * * EXAMINATION: CHEST RADIOGRAPH (2 VIEW FRONTAL & LATERAL) CLINICAL HISTORY: Wheezing Viral illness MQ: XC2_6 EXAM DATE/TIME: 12/31/2021 8:23 AM COMPARISON: No relevant prior studies available. RESULT: Lines, tubes, and devices: None. Lungs and pleura: No consolidation. No lung mass. No pleural effusion. No pneumothorax. Cardiomediastinal silhouette: Normal cardiomediastinal silhouette. Bones and soft tissues: Unremarkable. DIVISION OF RADIOLOGY Provider, [facility] - 12/31/2021 * * *Final Report* * * DATE OF EXAM: Dec 31 2021 8:23AM WOX [id number] - XR CHEST 2V FRONTAL/LAT / PROCEDURE REASON: multiple diagnoses * * * * Physician Interpretation * * * * EXAMINATION: CHEST RADIOGRAPH (2 VIEW FRONTAL & LATERAL) CLINICAL HISTORY: Wheezing Viral illness MQ: XC2_6 EXAM DATE/TIME: 12/31/2021 8:23 AM COMPARISON: No relevant prior studies available. RESULT: Lines, tubes, and devices: None. Lungs and pleura: No consolidation. No lung mass. No pleural effusion. No pneumothorax. Cardiomediastinal silhouette: Normal cardiomediastinal silhouette. Bones and soft tissues: Unremarkable. IMPRESSION IMPRESSION: No acute radiographic abnormality. Condominium Property Manager: KELI Transcribe Date/Time: Dec 31 2021 8:29A Dictated by : SYDNEY JEFFERS MD This examination was interpreted and the report reviewed and electronically signed by: SYDNEY JEFFERS MD on Dec 31 2021 8:30AM EST [facility] Radiology Study observation (narrative) [facility] XR Chest PA and LateralOrder ed By: Ccf Provider on 12-31-2021 [facility] XR Chest PA and Lateralon IMPRESSION: No acute pulmonary process. Condominium Property Manager: PSCB Transcribe Date/Time: Sep 09 2021 4:32P Dictated by : RACHEL KOO MD This examination was interpreted and the report reviewed and electronically signed by: RACHEL KOO MD on Sep 09 2021 4:32PM EST DIVISION OF RADIOLOGY * * *Final Report* * * DATE OF EXAM: Sep 09 2021 4:30PM WOX [id number] - XR CHEST 2V FRONTAL/LAT / PROCEDURE REASON: Cough * * * * Physician Interpretation * * * * XR CHEST 2V FRONTAL/LAT CLINICAL HISTORY: Cough COMPARISON: None. RESULT: Lungs are clear. No cardiomegaly. No pulmonary edema. DIVISION OF RADIOLOGY Provider, [facility] - 09/09/2021 * * *Final Report* * * DATE OF EXAM: Sep 09 2021 4:30PM WOX 5291 - XR CHEST 2V FRONTAL/LAT / PROCEDURE REASON: Cough * * * * Physician Interpretation * * * * XR CHEST 2V FRONTAL/LAT CLINICAL HISTORY: Cough COMPARISON: None. RESULT: Lungs are clear. No cardiomegaly. No pulmonary edema. IMPRESSION IMPRESSION: No acute pulmonary process. Condominium Property Manager: KELI Transcribe Date/Time: Sep 09 2021 4:32P Dictated by : RACHEL KOO MD This examination was interpreted and the report reviewed and electronically signed by: RACHEL KOO MD on Sep 09 2021 4:32PM EST [facility] Radiology Study observation (narrative) [facility] XR Chest PA and LateralOrder ed By: Ccf Provider on 09-09-2021 [facility] XR CHEST 2 VIEWSon XR CHEST 2 VIEWS ORIGINAL EXAMINATION: TWO XRAY VIEWS OF THE CHEST05/13/2021 8:34 am CHEST AP/PA and LATERAL TECHNIQUE: Two view chest radiograph. COMPARISON: None. HISTORY: ORDERING SYSTEM PROVIDED HISTORY: Reason for Exam: CHEST PAIN, SHORTNESS OF BREATH Chest pain shortness of breath. FINDINGS: The cardiomediastinal silhouette is unremarkable. There are no pleural effusions or pneumothoraces. No focal consolidations are seen. No acute rib fractures are seen. The partially visualized thoracic spine is unremarkable. There are surgical clips within the left upper quadrant. IMPRESSION: 1. No evidence of acute cardiopulmonary process. I have personally reviewed the images of this examination, agree with resident's findings and interpretation. Interpreted by: Janes Mi Preliminary Report By: Roderick Engle Electronically signed By Janes Mi Dictated Date: 05/13/2021 9:33:48 AM Prelim Date: 05/13/2021 4:13:52 PM Sign Date: 05/13/2021 4:13:52 PM Ordering Provider: MELINDA Maldonado [facility] ([place]) No Panel Information [facility] Vital Signs Date Time Vital Sign Value Performing Clinician Say robb 02-20-2025 08:53-0400 Body height 163.8 cm Al Kennedy MD Work Phone: [facility] 02-20-2025 08:53-0400 Body mass index (BMI) [Ratio] 32.79 kg/m2 Al Kennedy MD Work Phone: [facility] 02-20-2025 08:53-0400 Body weight 88 kg Al Kennedy MD Work Phone: [facility] 02-20-2025 08:53-0400 Diastolic blood pressure 72 mm[Hg] Al Kennedy MD Work Phone: [facility] 02-20-2025 08:53-0400 Heart rate 65 /min Al Kennedy MD Work Phone: [facility] 02-20-2025 08:53-0400 Respiratory rate 16 /min Al Kennedy MD Work Phone: [facility] 02-20-2025 08:53-0400 SaO2% (BldA) [Mass fraction] 100 % Al Kennedy MD Work Phone: [facility] 02-20-2025 08:53-0400 Systolic blood pressure 116 mm[Hg] Al Kennedy MD Work Phone: [facility] 01-29-2025 14:31-0400 Body mass index (BMI) [Ratio] 32.28 kg/m2 Al Kennedy MD Work Phone: [facility] 01-29-2025 14:31-0400 Body weight 88 kg Al Kennedy MD Work Phone: [facility] 01-29-2025 14:31-0400 Diastolic blood pressure 80 mm[Hg] Al Kennedy MD Work Phone: [facility] 01-29-2025 14:31-0400 Systolic blood pressure 132 mm[Hg] Al Kennedy MD Work Phone: [facility] 01-23-2025 09:35-0400 Body mass index (BMI) [Ratio] 32.45 kg/m2 Lelia Novak TOWER ERECTOR HELPER.CNM Work Phone: [facility] 01-23-2025 09:35-0400 Body weight 88.45 kg Lelia Novak TOWER ERECTOR HELPER.CNM Work Phone: [facility] 01-23-2025 09:35-0400 Diastolic blood pressure 76 mm[Hg] Lelia Roblests TOWER ERECTOR HELPER.CNM Work Phone: [facility] 01-23-2025 09:35-0400 Systolic blood pressure 118 mm[Hg] Lelia Novak TOWER ERECTOR HELPER.CNM Work Phone: [facility] 01-06-2025 14:48-0400 Body mass index (BMI) [Ratio] 33.12 kg/m2 Ariela Click TOWER ERECTOR HELPER.WAREHOUSE REPRESENTATIVE Work Phone: [facility] 01-06-2025 14:48-0400 Body weight 90.27 kg Ariela Click TOWER ERECTOR HELPER.WAREHOUSE REPRESENTATIVE Work Phone: [facility] 01-06-2025 14:48-0400 Heart rate 60 /min Ariela Click TOWER ERECTOR HELPER.WAREHOUSE REPRESENTATIVE Work Phone: [facility] 01-06-2025 14:48-0400 Respiratory rate 17 /min Ariela Click TOWER ERECTOR HELPER.WAREHOUSE REPRESENTATIVE Work Phone: [facility] 01-06-2025 14:48-0400 SaO2% (BldA) [Mass fraction] 100 % Ariela Click TOWER ERECTOR HELPER.WAREHOUSE REPRESENTATIVE Work Phone: [facility] 01-02-2025 13:30-0400 Body mass index (BMI) [Ratio] 33.12 kg/m2 Lelia Plotts TOWER ERECTOR HELPER.CNM Work Phone: [facility] 01-02-2025 13:30-0400 Body weight 90.27 kg Lelia Plotts TOWER ERECTOR HELPER.CNM Work Phone: [facility] 01-02-2025 13:30-0400 Diastolic blood pressure 74 mm[Hg] Lelia Plotts TOWER ERECTOR HELPER.CNM Work Phone: [facility] 01-02-2025 13:30-0400 Systolic blood pressure 116 mm[Hg] Lelia Plotts TOWER ERECTOR HELPER.CNM Work Phone: [facility] 09-29-2024 18:49-0500 Body mass index (BMI) [Ratio] 32.58 kg/m2 Ollie Moomaw TOWER ERECTOR HELPER.WAREHOUSE REPRESENTATIVE Work Phone: [facility] 09-29-2024 18:49-0500 Body temperature 99.1 [degF] Ollie Moomaw TOWER ERECTOR HELPER.WAREHOUSE REPRESENTATIVE Work Phone: [facility] 09-29-2024 18:49-0500 Body weight 88.8 kg Ollie Moomaw TOWER ERECTOR HELPER.WAREHOUSE REPRESENTATIVE Work Phone: [facility] 09-29-2024 18:49-0500 Diastolic blood pressure 90 mm[Hg] Ollie Moomaw TOWER ERECTOR HELPER.WAREHOUSE REPRESENTATIVE Work Phone: [facility] 09-29-2024 18:49-0500 Heart rate 108 /min Ollie Moomaw TOWER ERECTOR HELPER.WAREHOUSE REPRESENTATIVE Work Phone: [facility] 09-29-2024 18:49-0500 Respiratory rate 18 /min Ollie Moomaw TOWER ERECTOR HELPER.WAREHOUSE REPRESENTATIVE Work Phone: [facility] 09-29-2024 18:49-0500 SaO2% (BldA) [Mass fraction] 99 % Ollie Moomaw TOWER ERECTOR HELPER.WAREHOUSE REPRESENTATIVE Work Phone: [facility] 09-29-2024 18:49-0500 Systolic blood pressure 144 mm[Hg] Ollie Moomaw TOWER ERECTOR HELPER.WAREHOUSE REPRESENTATIVE Work Phone: [facility] 09-15-2024 08:09-0500 Body height 165.1 cm Jenniffer Chiu MD Work Phone: [facility] 09-15-2024 08:09-0500 Body mass index (BMI) [Ratio] 30.82 kg/m2 Jenniffer Chiu MD Work Phone: [facility] 09-15-2024 08:09-0500 Body temperature 98.8 [degF] Jenniffer Chiu MD Work Phone: [facility] 09-15-2024 08:09-0500 Body weight 84.01 kg Jenniffer Chiu MD Work Phone: [facility] 09-15-2024 08:09-0500 Heart rate 72 /min Jenniffer Chiu MD Work Phone: [facility] 09-15-2024 08:09-0500 SaO2% (BldA) [Mass fraction] 100 % Jenniffer Chiu MD Work Phone: [facility] 08-04-2024 16:10-0500 Body mass index (BMI) [Ratio] 31.77 kg/m2 Dariusz Berry TOWER ERECTOR HELPER.SIDE PULLER Work Phone: [facility] 08-04-2024 16:10-0500 Body temperature 98.91 [degF] Dariusz Berry TOWER ERECTOR HELPER.SIDE PULLER Work Phone: [facility] 08-04-2024 16:10-0500 Body weight 84.6 kg Dariusz Berry TOWER ERECTOR HELPER.SIDE PULLER Work Phone: [facility] 08-04-2024 16:10-0500 Diastolic blood pressure 86 mm[Hg] Dariusz Berry TOWER ERECTOR HELPER.SIDE PULLER Work Phone: [facility] 08-04-2024 16:10-0500 Heart rate 66 /min Dariusz Berry TOWER ERECTOR HELPER.SIDE PULLER Work Phone: [facility] 08-04-2024 16:10-0500 Respiratory rate 16 /min Dariusz Berry TOWER ERECTOR HELPER.SIDE PULLER Work Phone: [facility] 08-04-2024 16:10-0500 Systolic blood pressure 127 mm[Hg] Dariusz Berry TOWER ERECTOR HELPER.SIDE PULLER Work Phone: [facility] 07-08-2024 14:13-0400 Body mass index (BMI) [Ratio] 30.31 kg/m2 True Gaytan MD Work Phone: [facility] 07-08-2024 14:13-0400 Body temperature 99.9 [degF] True Gaytan MD Work Phone: [facility] 07-08-2024 14:13-0400 Body weight 83.92 kg True Gaytan MD Work Phone: [facility] 07-08-2024 14:13-0400 Diastolic blood pressure 86 mm[Hg] True Gaytan MD Work Phone: [facility] 07-08-2024 14:13-0400 Heart rate 64 /min True Gaytan MD Work Phone: [facility] 07-08-2024 14:13-0400 SaO2% (BldA) [Mass fraction] 100 % True Gaytan MD Work Phone: [facility] 07-08-2024 14:13-0400 Systolic blood pressure 135 mm[Hg] True Gaytan MD Work Phone: [facility] 07-08-2024 14:05-0400 Body height 166.4 cm Pulm Wstr Work Phone: [facility] 07-08-2024 14:05-0400 Body mass index (BMI) [Ratio] 30.31 kg/m2 Pulm Wstr Work Phone: [facility] 07-08-2024 14:05-0400 Body weight 83.92 kg Pulm Wstr Work Phone: [facility] 07-08-2024 14:05-0400 Heart rate 75 /min Pulm Wstr Work Phone: [facility] 07-08-2024 14:05-0400 Respiratory rate 15 /min Pulm Wstr Work Phone: [facility] 07-08-2024 14:05-0400 SaO2% (BldA) [Mass fraction] 100 % Pulm Wstr Work Phone: [facility] 06-13-2024 08:08-0400 Body height 165.5 cm Lelia Novak TOWER ERECTOR HELPER.CNM Work Phone: [facility] 06-13-2024 08:08-0400 Body mass index (BMI) [Ratio] 30.14 kg/m2 Lelia Novak TOWER ERECTOR HELPER.CNM Work Phone: [facility] 06-13-2024 08:08-0400 Body weight 82.56 kg Lelia Novak APRN.CNM Work Phone: [facility] 06-13-2024 08:08-0400 Diastolic blood pressure 60 mm[Hg] Lelia Novak TOWER ERECTOR HELPER.CNM Work Phone: [facility] 06-13-2024 08:08-0400 Systolic blood pressure 110 mm[Hg] Lelia Novak APRN.CNM Work Phone: [facility] 06-11-2024 15:36-0400 Body mass index (BMI) [Ratio] 31.18 kg/m2 Sam Hankins MD Work Phone: [facility] 06-11-2024 15:36-0400 Body weight 85 kg Sam Hankins MD Work Phone: [facility] 06-11-2024 15:36-0400 Diastolic blood pressure 81 mm[Hg] Sam Hankins MD Work Phone: [facility] 06-11-2024 15:36-0400 Heart rate 75 /min Sam Hankins MD Work Phone: [facility] 06-11-2024 15:36-0400 SaO2% (BldA) [Mass fraction] 100 % Sam Hankins MD Work Phone: [facility] 06-11-2024 15:36-0400 Systolic blood pressure 123 mm[Hg] Sam Hankins MD Work Phone: [facility] 12-04-2023 09:02-0400 Body height 165.1 cm Pacc 1 Work Phone: [facility] 12-04-2023 09:02-0400 Body temperature 99.5 [degF] Pacc 1 Work Phone: [facility] 12-04-2023 09:02-0400 Body weight 75.75 kg Pacc 1 Work Phone: [facility] 12-04-2023 09:02-0400 Diastolic blood pressure 77 mm[Hg] Pacc 1 Work Phone: [facility] 12-04-2023 09:02-0400 Heart rate 84 /min Pacc 1 Work Phone: [facility] 12-04-2023 09:02-0400 Respiratory rate 16 /min Pacc 1 Work Phone: [facility] 03-12-2024 09:02-0400 SaO2% (BldA) [Mass fraction] 100 % Pac 1 Work Phone: [facility] 12-04-2023 09:02-0400 Systolic blood pressure 123 mm[Hg] Pac 1 Work Phone: [facility] 09-03-2023 14:58-0500 Body weight 78.93 kg Bessie Pricilla PA-C Work Phone: [facility] 09-03-2023 14:58-0500 Diastolic blood pressure 84 mm[Hg] Bessie Pricilla PA-C Work Phone: [facility] 09-03-2023 14:58-0500 Heart rate 58 /min Bessie Pricilla PA-C Work Phone: [facility] 09-03-2023 14:58-0500 Respiratory rate 14 /min Bessie Pricilla PA-C Work Phone: [facility] 09-03-2023 14:58-0500 SaO2% (BldA) [Mass fraction] 100 % Bessie Pricilla PA-C Work Phone: [facility] 09-03-2023 14:58-0500 Systolic blood pressure 128 mm[Hg] Bessie Pricilla PA-C Work Phone: [facility] 08-03-2023 08:15-0500 Body temperature 98.4 [degF] Ben Lelbanc MD Work Phone: [facility] 08-03-2023 08:15-0500 Body weight 83.28 kg Ben Leblanc MD Work Phone: [facility] 08-03-2023 08:15-0500 Diastolic blood pressure 80 mm[Hg] Ben Leblanc MD Work Phone: [facility] 08-03-2023 08:15-0500 Heart rate 89 /min Ben Leblanc MD Work Phone: [facility] 08-03-2023 08:15-0500 Respiratory rate 16 /min Ben Leblanc MD Work Phone: [facility] 08-03-2023 08:15-0500 SaO2% (BldA) [Mass fraction] 100 % Ben Leblanc MD Work Phone: [facility] 08-03-2023 08:15-0500 Systolic blood pressure 128 mm[Hg] Ben Leblanc MD Work Phone: [facility] 06-26-2023 16:02-0400 Body height 172.7 cm Ben Leblanc MD Work Phone: [facility] 06-26-2023 16:02-0400 Body temperature 99.1 [degF] Ben Leblanc MD Work Phone: [facility] 06-26-2023 16:02-0400 Body weight 90.17 kg Ben Leblanc MD Work Phone: [facility] 06-26-2023 16:02-0400 Diastolic blood pressure 84 mm[Hg] Ben Leblanc MD Work Phone: [facility] 06-26-2023 16:02-0400 Heart rate 91 /min Ben Leblanc MD Work Phone: [facility] 06-26-2023 16:02-0400 SaO2% (BldA) [Mass fraction] 100 % Ben Leblanc MD Work Phone: [facility] 06-26-2023 16:02-0400 Systolic blood pressure 128 mm[Hg] Ben Leblanc MD Work Phone: [facility] 06-16-2023 08:05-0400 Body height 165.1 cm Diane Bazzi MD Work Phone: [facility] 06-16-2023 08:05-0400 Body temperature 98.29 [degF] Diane Bazzi MD Work Phone: [facility] 06-16-2023 08:05-0400 Body weight 91.63 kg Diane Bazzi MD Work Phone: [facility] 06-16-2023 08:05-0400 Diastolic blood pressure 76 mm[Hg] Diane Bazzi MD Work Phone: [facility] 06-16-2023 08:05-0400 Heart rate 79 /min Diane Bazzi MD Work Phone: [facility] 06-16-2023 08:05-0400 Respiratory rate 12 /min Diane Bazzi MD Work Phone: [facility] 06-16-2023 08:05-0400 SaO2% (BldA) [Mass fraction] 100 % Diane Bazzi MD Work Phone: [facility] 06-16-2023 08:05-0400 Systolic blood pressure 122 mm[Hg] Diane Bazzi MD Work Phone: [facility] 05-30-2023 09:59-0400 Body temperature 98.8 [degF] [facility] TOWER ERECTOR HELPER.WAREHOUSE REPRESENTATIVE Work Phone: [facility] 05-30-2023 09:59-0400 Body weight 91.63 kg [facility] TOWER ERECTOR HELPER.WAREHOUSE REPRESENTATIVE Work Phone: [facility] 05-30-2023 09:59-0400 Diastolic blood pressure 80 mm[Hg] Jayden Pendlebury TOWER ERECTOR HELPER.WAREHOUSE REPRESENTATIVE Work Phone: [facility] 05-30-2023 09:59-0400 Heart rate 88 /min Jayden Pendlelucia TOWER ERECTOR HELPER.WAREHOUSE REPRESENTATIVE Work Phone: [facility] 05-30-2023 09:59-0400 Respiratory rate 16 /min [facility] TOWER ERECTOR HELPER.WAREHOUSE REPRESENTATIVE Work Phone: [facility] 05-30-2023 09:59-0400 SaO2% (BldA) [Mass fraction] 99 % Jayden Pendlelucia TOWER ERECTOR HELPER.WAREHOUSE REPRESENTATIVE Work Phone: [facility] 05-30-2023 09:59-0400 Systolic blood pressure 118 mm[Hg] Jayden Pendlebury TOWER ERECTOR HELPER.WAREHOUSE REPRESENTATIVE Work Phone: [facility] 05-25-2023 11:49-0400 Body temperature 99.1 [degF] Diane Bazzi MD Work Phone: [facility] 05-25-2023 11:49-0400 Body weight 93.44 kg Diane Bazzi MD Work Phone: [facility] 05-25-2023 11:49-0400 Diastolic blood pressure 86 mm[Hg] Diane Bazzi MD Work Phone: [facility] 05-25-2023 11:49-0400 Heart rate 61 /min Diane Bazzi MD Work Phone: [facility] 05-25-2023 11:49-0400 Respiratory rate 18 /min Diane Bazzi MD Work Phone: [facility] 05-25-2023 11:49-0400 SaO2% (BldA) [Mass fraction] 100 % Diane Bazzi MD Work Phone: [facility] 05-25-2023 11:49-0400 Systolic blood pressure 137 mm[Hg] Diane Bazzi MD Work Phone: [facility] 05-04-2023 09:17-0400 Body weight 93.89 kg True Gaytan MD Work Phone: [facility] 05-04-2023 09:17-0400 Diastolic blood pressure 68 mm[Hg] True Gaytan MD Work Phone: [facility] 05-04-2023 09:17-0400 Heart rate 75 /min True Gaytan MD Work Phone: [facility] 05-04-2023 09:17-0400 Respiratory rate 17 /min True Gaytan MD Work Phone: [facility] 05-04-2023 09:17-0400 SaO2% (BldA) [Mass fraction] 100 % True Gaytan MD Work Phone: [facility] 05-04-2023 09:17-0400 Systolic blood pressure 122 mm[Hg] True Gaytan MD Work Phone: [facility] 04-13-2023 11:52-0400 Body temperature 99 [degF] Diane Bazzi MD Work Phone: [facility] 04-13-2023 11:52-0400 Body weight 92.08 kg Diane Bazzi MD Work Phone: [facility] 04-13-2023 11:52-0400 Diastolic blood pressure 84 mm[Hg] Diane Bazzi MD Work Phone: [facility] 04-13-2023 11:52-0400 Heart rate 75 /min Diane Bazzi MD Work Phone: [facility] 04-13-2023 11:52-0400 Respiratory rate 18 /min Diane Bazzi MD Work Phone: [facility] 04-13-2023 11:52-0400 SaO2% (BldA) [Mass fraction] 99 % Diane Bazzi MD Work Phone: [facility] 04-13-2023 11:52-0400 Systolic blood pressure 118 mm[Hg] Diane Bazzi MD Work Phone: [facility] 12-01-2022 10:57-0500 Diastolic blood pressure 64 mm[Hg] Nurse Work Phone: [facility] 12-01-2022 10:57-0500 Heart rate 62 /min Nurse Work Phone: [facility] 12-01-2022 10:57-0500 SaO2% (BldA) [Mass fraction] 100 % Nurse Work Phone: [facility] 12-01-2022 10:57-0500 Systolic blood pressure 128 mm[Hg] Nurse Mc Work Phone: [facility] 10-06-2022 08:10-0500 Diastolic blood pressure 67 mm[Hg] Nurse Mc Work Phone: [facility] 10-06-2022 08:10-0500 Heart rate 73 /min Nurse Mc Work Phone: [facility] 01-13-2023 08:10-0500 SaO2% (BldA) [Mass fraction] 98 % Nurse Sage Work Phone: [facility] 10-06-2022 08:10-0500 Systolic blood pressure 123 mm[Hg] Nurse Sage Work Phone: [facility] 09-06-2022 15:32-0500 Body weight 92.99 kg Sam Hankins MD Work Phone: [facility] 09-06-2022 15:32-0500 Diastolic blood pressure 77 mm[Hg] Sam Hankins MD Work Phone: [facility] 09-06-2022 15:32-0500 Heart rate 65 /min Sam Hankins MD Work Phone: [facility] 09-06-2022 15:32-0500 SaO2% (BldA) [Mass fraction] 100 % Sam Hankins MD Work Phone: [facility] 09-06-2022 15:32-0500 Systolic blood pressure 120 mm[Hg] Sam Hankins MD Work Phone: [facility] 08-11-2022 09:56-0500 Diastolic blood pressure 72 mm[Hg] Nurse Work Phone: [facility] 08-11-2022 09:56-0500 Heart rate 74 /min Nurse Work Phone: [facility] 08-11-2022 09:56-0500 SaO2% (BldA) [Mass fraction] 100 % Nurse Work Phone: [facility] 08-11-2022 09:56-0500 Systolic blood pressure 132 mm[Hg] Nurse Work Phone: [facility] 06-16-2022 08:14-0400 Body weight 96.16 kg Rupal Storm APRN.WAREHOUSE REPRESENTATIVE Work Phone: [facility] 06-16-2022 08:14-0400 Diastolic blood pressure 80 mm[Hg] Rupal Storm APRN.WAREHOUSE REPRESENTATIVE Work Phone: [facility] 06-16-2022 08:14-0400 Heart rate 68 /min Rupal Older TOWER ERECTOR HELPER.WAREHOUSE REPRESENTATIVE Work Phone: [facility] 06-16-2022 08:14-0400 Respiratory rate 16 /min Rupal Older TOWER ERECTOR HELPER.WAREHOUSE REPRESENTATIVE Work Phone: [facility] 06-16-2022 08:14-0400 Systolic blood pressure 128 mm[Hg] Rupal Older TOWER ERECTOR HELPER.WAREHOUSE REPRESENTATIVE Work Phone: [facility] 06-14-2022 15:16-0400 Diastolic blood pressure 83 mm[Hg] Nurse Work Phone: [facility] 06-14-2022 15:16-0400 Heart rate 69 /min Nurse Work Phone: [facility] 06-14-2022 15:16-0400 SaO2% (BldA) [Mass fraction] 100 % Nurse Work Phone: [facility] 06-14-2022 15:16-0400 Systolic blood pressure 133 mm[Hg] Nurse Work Phone: [facility] 05-30-2022 09:38-0400 Body weight 99.34 kg Sam Hankins MD Work Phone: [facility] 05-30-2022 09:38-0400 Diastolic blood pressure 83 mm[Hg] Sam Hankins MD Work Phone: [facility] 05-30-2022 09:38-0400 Heart rate 75 /min Sam Hankins MD Work Phone: [facility] 05-30-2022 09:38-0400 SaO2% (BldA) [Mass fraction] 99 % Sam Hankins MD Work Phone: [facility] 05-30-2022 09:38-0400 Systolic blood pressure 141 mm[Hg] Sam Hankins MD Work Phone: [facility] 04-19-2022 14:54-0400 Body weight 101.15 kg Sam Hankins MD Work Phone: [facility] 04-19-2022 14:54-0400 Diastolic blood pressure 80 mm[Hg] Sam Hankins MD Work Phone: [facility] 04-19-2022 14:54-0400 Heart rate 77 /min Sam Hankins MD Work Phone: [facility] 04-19-2022 14:54-0400 SaO2% (BldA) [Mass fraction] 100 % Sam Hankins MD Work Phone: [facility] 04-19-2022 14:54-0400 Systolic blood pressure 135 mm[Hg] Sam Hankins MD Work Phone: [facility] 03-30-2022 09:39-0400 Body weight 102.51 kg Bessie Pricilla PA-C Work Phone: [facility] 03-30-2022 09:39-0400 Diastolic blood pressure 82 mm[Hg] Bessie Pricilla PA-C Work Phone: [facility] 03-30-2022 09:39-0400 Heart rate 74 /min Bessie Pricilla PA-C Work Phone: [facility] 03-30-2022 09:39-0400 Respiratory rate 17 /min Bessie Pricilla PA-C Work Phone: [facility] 03-30-2022 09:39-0400 SaO2% (BldA) [Mass fraction] 99 % Bessie Pricilla PA-C Work Phone: [facility] 03-30-2022 09:39-0400 Systolic blood pressure 132 mm[Hg] Bessie Pricilla PA-C Work Phone: [facility] 02-28-2022 08:54-0400 Body weight 104.33 kg Dariusz Berry APRN.SIDE PULLER Work Phone: [facility] 02-28-2022 08:54-0400 Diastolic blood pressure 86 mm[Hg] Dariusz Berry APRN.SIDE PULLER Work Phone: [facility] 02-28-2022 08:54-0400 Heart rate 72 /min Dariusz Berry TOWER ERECTOR HELPER.SIDE PULLER Work Phone: [facility] 02-28-2022 08:54-0400 Respiratory rate 16 /min Dariusz Berry TOWER ERECTOR HELPER.SIDE PULLER Work Phone: [facility] 02-28-2022 08:54-0400 Systolic blood pressure 124 mm[Hg] Dariusz Berry TOWER ERECTOR HELPER.SIDE PULLER Work Phone: [facility] 12-30-2021 17:33-0400 Body temperature 98.49 [degF] Barby Willow TOWER ERECTOR HELPER.WAREHOUSE REPRESENTATIVE Work Phone: [facility] 12-30-2021 17:33-0400 Body weight 109.68 kg Barby Willow TOWER ERECTOR HELPER.WAREHOUSE REPRESENTATIVE Work Phone: [facility] 12-30-2021 17:33-0400 Diastolic blood pressure 76 mm[Hg] Barby Willow TOWER ERECTOR HELPER.WAREHOUSE REPRESENTATIVE Work Phone: [facility] 12-30-2021 17:33-0400 Heart rate 84 /min Barby Willow TOWER ERECTOR HELPER.WAREHOUSE REPRESENTATIVE Work Phone: [facility] 12-30-2021 17:33-0400 Respiratory rate 18 /min Barby Willow TOWER ERECTOR HELPER.WAREHOUSE REPRESENTATIVE Work Phone: [facility] 12-30-2021 17:33-0400 SaO2% (BldA) [Mass fraction] 97 % Barby Willow TOWER ERECTOR HELPER.WAREHOUSE REPRESENTATIVE Work Phone: [facility] 12-30-2021 17:33-0400 Systolic blood pressure 124 mm[Hg] Barby Willow TOWER ERECTOR HELPER.WAREHOUSE REPRESENTATIVE Work Phone: [facility] Encounters Encounter Date Encounter Type Care Provider Facility Start: 03-06-2025 ambulatory Al Chacko Facility:[facility] Start: 03-03-2025 Encounter for other preprocedural examination Al Ricco [facility] Start: 02-27-2025 End: 02-27-2025 ambulatory Diane Bazzi Facility:[facility] Start: 02-20-2025 End: 02-20-2025 Telephone encounter Al Kennedy MD Work Phone: OB/Gynecology Comment on above: pre op question Start: 02-20-2025 End: 02-20-2025 Patient encounter procedure Al Kennedy MD Work Phone: OB/Gynecology Comment on above: Visit for pre-operat julissa examination (Primary Dx); Menorrhagia with irregular cycle; Pelvic pain in female; Adenomyosis; Polyp of corpus uteri; Intramural and submucous leiomyoma of uterus Start: 02-20-2025 End: 02-20-2025 Preprocedural examination done Al Kennedy MD Work Phone: [facility] Start: 02-20-2025 End: 02-20-2025 ambulatory AL KENNEDY Facility:[facility] Start: 02-20-2025 Encounter for other preprocedural examination AL KENNEDY [facility] Start: 02-17-2025 End: 02-17-2025 Nursing evaluation of patient and report Mi Nurse Work Phone: [facility] Comment on above: Encounter for immuni zation (Primary Dx) Start: 02-17-2025 End: 02-17-2025 ambulatory DIANE BAZZI Facility:[facility] Start: 01-29-2025 End: 01-29-2025 Patient encounter procedure Al Kennedy MD Work Phone: OB/Gynecology Comment on above: Menorrhagia with irr egular cycle (Primary Dx); Pelvic pain in female; Adenomyosis; Polyp of corpus uteri; Intramural and submucous leiomyoma of uterus Start: 01-29-2025 End: 01-29-2025 ambulatory AL KENNEDY Facility:[facility] Start: 01-23-2025 End: 01-23-2025 Patient encounter procedure Lelia Novak APRN.CNM Work Phone: OB/Gynecology Comment on above: Irregular menstruati on (Primary Dx); Excessive bleeding in premenopausal period; Adenomyosis; Uterine leiomyoma, unspecified location Start: 01-23-2025 End: 01-23-2025 ambulatory LELIA [facility] Facility:[facility] Start: 01-13-2025 End: 01-13-2025 ambulatory [facility] Facility:[facility] Start: 01-08-2025 End: 01-08-2025 Orders Only Lelia Novak APRN.CNM Work Phone: OB/Gynecology Comment on above: Uterine leiomyoma, u nspecified location (Primary Dx); Hemorrhagic ovarian cyst; Adenomyosis Orders Start: 01-06-2025 End: 01-06-2025 [facility] Start: 01-06-2025 End: 01-06-2025 Office outpatient visit 10 minutes Ariela Talley APRN.CNP Work Phone: Pulmonary Medicine Comment on above: 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) (Primary Dx); Multiple allergies Start: 01-06-2025 End: 01-06-2025 [facility]ulatory [facility] Facility:[facility] Start: 01-06-2025 End: 01-06-2025 Subsequent hospital visit by physician [facility] Work Phone: Radiology Comment on above: Irregular periods/me nstrual cycles [N92.6] Start: 01-02-2025 End: 01-02-2025 ambulatory LELIA [facility] Facility:[facility] Start: 01-02-2025 End: 01-02-2025 Patient encounter procedure Lelia Novak APRN.CNM Work Phone: OB/Gynecology Comment on above: Irregular periods/me nstrual cycles (Primary Dx); History of uterine fibroid; Menorrhagia with irregular cycle; Dyspareunia in female Start: 12-09-2024 End: 12-09-2024 ambulatory Jaja Leonard PT [facility] Comment on above: Acetabular labrum te ar, left, subsequent encounter (Primary Dx); Radiculopathy, lumbar region Start: 12-04-2024 End: 02-03-2025 Follow-up encounter Dariusz Berry TOWER ERECTOR HELPER.SIDE PULLER Work Phone: Internal Medicine [place] Start: 12-02-2024 End: 12-03-2024 ambulatory Jaja Leonadr PT [facility] Comment on above: Acetabular labrum te ar, left, subsequent encounter (Primary Dx); Radiculopathy, lumbar region Start: 11-25-2024 End: 11-25-2024 ambulatory Jaja Leonard PT [facility] Physical Therapy Comment on above: Acetabular labrum te ar, left, subsequent encounter (Primary Dx); Radiculopathy, lumbar region Start: 11-23-2024 End: 11-24-2024 ambulatory Debbie Mustafa PA-C Work Phone: [facility] [place] Start: 11-23-2024 End: 11-24-2024 Follow-up encounter Debbie WILSON-C Work Phone: [facility] [place] Comment on above: 2 weekish injection followup Start: 11-17-2024 End: 11-17-2024 ambulatory Clair Melendez BONE PULLER Work Phone: [facility] Comment on above: Acetabular labrum te ar, left, subsequent encounter (Primary Dx); Radiculopathy, lumbar region Start: 11-08-2024 End: 11-10-2024 ambulatory Debbie Mustafa PA-C Work Phone: [facility] [place] Comment on above: day after inection Start: 11-07-2024 End: 11-07-2024 ambulatory DEBBIE MUSTAFA Facility:[facility] Start: 11-07-2024 End: 11-07-2024 Subsequent hospital visit by physician Xr Arthro/Inject/Aspr Trnsp Radiology Comment on above: Acetabular labrum te ar, left, subsequent encounter [S73.192D] Start: 11-05-2024 End: 11-05-2024 ambulatory Jaja Leonard PT [facility] Physical Therapy Comment on above: Acetabular labrum te ar, left, subsequent encounter (Primary Dx); Radiculopathy, lumbar region Start: 10-29-2024 End: 10-29-2024 Telephone encounter Sam Hankins MD Work Phone: Allergy Start: 10-24-2024 End: 10-24-2024 Refill Sam Hankins MD Work Phone: Allergy Comment on above: Refill Request Acetabular labrum te ar, left, subsequent encounter (Primary Dx); Radiculopathy, lumbar region; Pain in left hip Start: 10-23-2024 End: 10-23-2024 ambulatory BERNARD ESTRADA Facility:[facility] Start: 10-23-2024 End: 10-23-2024 Patient encounter procedure Bernard Estrada MD Work Phone: Dermatology Comment on above: Atypical nevus (Prim micah Dx) Start: 10-17-2024 End: 10-17-2024 ambulatory DARIUSZ BERRY Facility:[facility] Start: 10-17-2024 End: 10-17-2024 [facility] Comment on above: Acetabular labrum te ar, left, subsequent encounter (Primary Dx); Radiculopathy, lumbar region Start: 10-10-2024 End: 10-10-2024 Refill True Gaytan MD Work Phone: Pulmonary Medicine Comment on above: Refill Request Start: 10-09-2024 End: 10-09-2024 ambulatory Sam Hankins MD Work Phone: Allergy Comment on above: [employer] Start: 10-03-2024 End: 10-15-2024 Telephone encounter Sam Hankins MD Work Phone: Allergy Comment on above: 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 Start: 09-30-2024 End: 09-30-2024 Telephone encounter Santos Leggett APRN.WAREHOUSE REPRESENTATIVE Work Phone: [facility] Comment on above: Results Start: 09-29-2024 End: 09-29-2024 Subsequent hospital visit by physician Xr [facility] [place] Work Phone: Radiology Comment on above: Acute cough [R05.1] Start: 09-29-2024 End: 09-29-2024 ambulatory [facility] Facility:[facility] Start: 09-29-2024 End: 09-29-2024 Patient encounter procedure Ollie Valdovinosdinaaditi KANDICE Work Phone: [facility] Comment on above: Acute cough (Primary Dx) Start: 09-19-2024 End: 09-19-2024 Subsequent hospital visit by physician Xr [facility] Radiology Comment on above: Pain in left hip [M2 5.552] Start: 09-19-2024 End: 09-19-2024 ambulatory EDBBIE MUSTAFA Facility:[facility] Start: 09-19-2024 End: 09-19-2024 Patient encounter procedure Debbie Mustafa PA-C Work Phone: [facility] [place] Comment on above: Pain in left hip (Pr imary Dx); Acetabular labrum tear, left, subsequent encounter; Radiculopathy, lumbar region Start: 09-16-2024 End: 09-16-2024 Nursing evaluation of patient and report Mi Nurse Work Phone: Family Medicine [place] Comment on above: Encounter for immuni zation (Primary Dx) Start: 09-16-2024 End: 09-16-2024 ambulatory [facility] Facility:[facility] Start: 09-15-2024 End: 09-15-2024 ambulatory BERNARD ESTRADA Facility:[facility] Start: 09-15-2024 End: 09-15-2024 Patient encounter procedure Jenniffer Chiu MD Work Phone: Endocrinology Comment on above: TSH elevation Screening for malign ant neoplasm of skin (Primary Dx); Family history of malignant neoplasm of skin; Acquired melanocytic nevus; Fibrous papule of face; Rosacea; Seborrheic keratosis; Congenital nevus; Striae atrophicae; Extensive tattoos; Atypical nevus Start: 09-08-2024 End: 09-08-2024 Refill Sam Hankins MD Work Phone: Allergy Comment on above: Refill Request Start: 09-03-2024 End: 09-03-2024 ambulatory Betsey Partida MD Work Phone: [facility] [place] Comment on above: Bad pain in left hip Start: 09-01-2024 End: 09-01-2024 ambulatory SYDNEY JOSÉ Facility:[facility] Start: 09-01-2024 End: 09-01-2024 Subsequent hospital visit by physician Mri Radio [facility] (I-Stat/1.5t) Work Phone: Radiology Comment on above: Disorder of central nervous system, unspecified [G96.9] Start: 08-28-2024 End: 08-28-2024 Telephone encounter Neurology Provider [facility] Comment on above: Future Appointment ( Re-Establishing Care [place] EV [place] 30) Start: 08-18-2024 End: 08-18-2024 ambulatory DIANE BAZZI Facility:[facility] Start: 08-18-2024 End: 08-18-2024 Nursing evaluation of patient and report Mi Nurse Work Phone: Family Medicine [place] Comment on above: Encounter for immuni zation (Primary Dx) Start: 08-15-2024 End: 09-18-2024 Telephone encounter Sydney José MD Work Phone: Endovascular Center Comment on above: Patient Question Start: 08-14-2024 End: 08-19-2024 E-mail encounter from caregiver Dariusz Berry APRN.SIDE PULLER Work Phone: Internal Medicine [place] Start: 08-14-2024 End: 08-19-2024 Follow-up encounter Dariusz Berry APRN.SIDE PULLER Work Phone: Internal Medicine [place] Comment on above: Follow up Start: 08-08-2024 End: 08-08-2024 ambulatory LELIA NOVAK Facility:[facility] Start: 08-08-2024 End: 08-08-2024 Subsequent hospital visit by physician Diagnostic Mammo [facility] Comment on above: Abnormal mammogram [ R92.8] Start: 08-04-2024 End: 08-04-2024 Office outpatient visit 25 minutes Dariusz Berry APRN.SIDE PULLER Work Phone: Internal Medicine [place] Comment on above: TSH elevation (Prima ry Dx); Enlarged thyroid; FUO (fever of unknown origin); Other fatigue; Hoarseness of voice; Nasal polyp Start: 08-04-2024 End: 08-04-2024 ambulatory [facility] Facility:[facility] Start: 07-31-2024 End: 08-01-2024 [facility] TOWER ERECTOR HELPER.SIDE PULLER Work Phone: Internal Medicine [place] Comment on above: Question about nodul e Start: 07-25-2024 End: 07-25-2024 Telephone encounter Klaudia Rush MD Work Phone: Mammography Comment on above: Mammogram Result Jos l Back Start: 07-25-2024 End: 07-25-2024 ambulatory [facility] Facility:[facility] Start: 07-25-2024 End: 07-25-2024 Subsequent hospital visit by physician Us [facility] Work Phone: Radiology Comment on above: Enlarged thyroid [E0 4.9] Start: 07-24-2024 End: 07-24-2024 Orders Only Lelia Novak TOWER ERECTOR HELPER.CNM Work Phone: Mammogram Comment on above: Abnormal mammogram ( Primary Dx) Start: 07-18-2024 End: 07-18-2024 [facility] Facility:[facility] Start: 07-18-2024 End: 07-18-2024 [facility] Facility:[facility] Start: 07-18-2024 Encounter for genera l adult medical examination without abnormal findings [facility] Start: 07-18-2024 End: 07-18-2024 ambulatory LELIA NOVAK Facility:[facility] Start: 07-18-2024 End: 07-18-2024 Subsequent hospital visit by physician Screen Mammo [facility] Mammogram Comment on above: Encounter for screen ing mammogram for breast cancer [Z12.31] Start: 07-08-2024 End: 07-08-2024 ambulatory Pulm Lab [facility] Work Phone: PULM LAB [facility] Comment on above: Spirometry Start: 07-08-2024 End: 07-08-2024 Patient encounter procedure Pulm Lab [facility] Work Phone: PUL LAB [facility] Comment on above: 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) Start: 06-16-2024 End: 06-16-2024 ambulatory Sam Hankins MD Work Phone: Allergy Comment on above: [employer] Approval Start: 06-16-2024 End: 06-16-2024 E-mail encounter from caregiver Sam Hankins MD Work Phone: Allergy Start: 06-13-2024 End: 06-13-2024 ambulatory [facility] Facility:[facility] Start: 06-13-2024 End: 06-13-2024 Patient encounter procedure Lelia Novak TOWER ERECTOR HELPER.CNM Work Phone: OB/Gynecology Comment on above: Encounter for gyneco logical examination (general) (routine) without abnormal findings (Primary Dx); Encounter for screening mammogram for breast cancer Start: 06-13-2024 End: 06-13-2024 Patient encounter status Lelia Novak TOWER ERECTOR HELPER.CNM Work Phone: [facility] Start: 06-12-2024 End: 06-16-2024 Telephone encounter Sam Hankins MD Work Phone: Allergy Comment on above: Dara PA Renewal Start: 06-11-2024 End: 06-11-2024 ambulatory SAM HANKINS Facility:[facility] Start: 06-11-2024 End: 06-11-2024 Patient encounter procedure Sam Hankins MD Work Phone: Allergy Comment on above: 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); Seasonal allergic rhinitis due to pollen; Chronic rhinitis; Need for influenza vaccination Start: 06-02-2024 End: 06-02-2024 Refill Sam Hankins MD Work Phone: Allergy Comment on above: Refill Request Start: 06-02-2024 End: 06-02-2024 Telephone encounter Sam Hankins MD Work Phone: Allergy Comment on above: PA FOR TEZSPIRE 24-2 5 Start: 05-19-2024 End: 05-19-2024 ambulatory True Gaytan MD Work Phone: Pulmonary Medicine Start: 05-19-2024 End: 05-19-2024 Patient encounter procedure True Gaytan MD Work Phone: Pulmonary Medicine Comment on above: do i need a referral Start: 05-12-2024 End: 05-12-2024 Telephone encounter Betsey Partida MD Work Phone: [facility] Comment on above: Appointment Start: 04-11-2024 End: 04-11-2024 ambulatory Jaja Leonard PT [facility] Comment on above: Acetabular labrum te ar, unspecified laterality, subsequent encounter (Primary Dx); Acetabular labrum tear, left, initial encounter; Tear of right acetabular labrum, subsequent encounter; Tear of acetabular labrum, unspecified laterality, subsequent encounter Start: 04-04-2024 Refill True Gaytan MD Work Phone: Pulmonary Medicine Comment on above: Refill Request Start: 03-18-2024 End: 03-18-2024 ambulatory Jaja Leonard PT [facility] Comment on above: Stress incontinence in female (Primary Dx); Acetabular labrum tear, unspecified laterality, subsequent encounter; Acetabular labrum tear, left, initial encounter; Tear of right acetabular labrum, subsequent encounter; Tear of acetabular labrum, unspecified laterality, subsequent encounter Start: 03-11-2024 End: 03-11-2024 ambulatory BETSEY PARTIDA Facility:[facility] Start: 03-11-2024 End: 03-11-2024 Patient encounter procedure Betsey Partida MD Work Phone: [facility] [place] Comment on above: Tear of right acetab ular labrum, subsequent encounter (Primary Dx); Acetabular labrum tear, left, subsequent encounter Start: 03-10-2024 End: 03-10-2024 ambulatory Clair Melendez PTA Work Phone: [facility] Comment on above: Acetabular labrum te ar, left, initial encounter (Primary Dx); Tear of right acetabular labrum, subsequent encounter Start: 03-05-2024 End: 03-05-2024 ambulatory Jaja O'Jose [facility] Comment on above: Acetabular labrum te ar, left, initial encounter (Primary Dx); Tear of right acetabular labrum, subsequent encounter; Tear of acetabular labrum, unspecified laterality, subsequent encounter; Acetabular labrum tear, unspecified laterality, subsequent encounter Start: 02-27-2024 End: 02-27-2024 ambulatory [email or web address] Work Phone: [facility] Comment on above: Acetabular labrum te ar, left, initial encounter (Primary Dx); Tear of right acetabular labrum, subsequent encounter Disorder of central nervous system, unspecified (Primary Dx); Vasculopathy Start: 02-25-2024 End: 02-25-2024 ambulatory [employer] Work Phone: [facility] Comment on above: Acetabular labrum te ar, left, initial encounter (Primary Dx); Tear of right acetabular labrum, subsequent encounter; Tear of acetabular labrum, unspecified laterality, subsequent encounter; Acetabular labrum tear, unspecified laterality, subsequent encounter Start: 02-20-2024 End: 02-20-2024 [facility] Comment on above: Acetabular labrum te ar, left, initial encounter (Primary Dx); Tear of right acetabular labrum, subsequent encounter; Tear of acetabular labrum, unspecified laterality, subsequent encounter; Acetabular labrum tear, unspecified laterality, subsequent encounter Start: 02-11-2024 End: 02-11-[address] [email or web address]: [facility] Comment on above: Acetabular labrum te ar, left, initial encounter (Primary Dx) Start: 02-06-2024 End: 02-06-2024 [facility] Comment on above: Acetabular labrum te ar, left, initial encounter (Primary Dx); Stress incontinence in female; Tear of right acetabular labrum, subsequent encounter; Tear of acetabular labrum, unspecified laterality, subsequent encounter; Acetabular labrum tear, unspecified laterality, subsequent encounter Start: 01-29-2024 End: 01-29-2024 ambulatory [facility] Comment on above: Acetabular labrum te ar, left, initial encounter (Primary Dx); Tear of right acetabular labrum, subsequent encounter; Tear of acetabular labrum, unspecified laterality, subsequent encounter; Acetabular labrum tear, unspecified laterality, subsequent encounter Start: 01-25-2024 End: 01-25-2024 ambulatory Debbie Rodarte Ramsey BATISTA Work Phone: [facility] [place] [place] Comment on above: Acetabular labrum te ar, left, initial encounter (Primary Dx); Tear of right acetabular labrum, subsequent encounter Start: 01-25-2024 End: 01-25-2024 Telemedicine consultation with patient Debbie Rodarte Ramsey BATISTA Work Phone: [facility] [place] Start: 01-22-2024 End: 01-22-2024 ambulatory [facility] Comment on above: Acetabular labrum te ar, left, initial encounter (Primary Dx); Tear of right acetabular labrum, subsequent encounter; Acetabular labrum tear, unspecified laterality, subsequent encounter; Tear of acetabular labrum, unspecified laterality, subsequent encounter Start: 01-15-2024 End: 01-15-2024 ambulatory [facility] Comment on above: Acetabular labrum te ar, left, initial encounter (Primary Dx); Tear of right acetabular labrum, subsequent encounter; Acetabular labrum tear, unspecified laterality, subsequent encounter; Tear of acetabular labrum, unspecified laterality, subsequent encounter Start: 01-08-2024 End: 01-08-2024 ambulatory [facility] Comment on above: Acetabular labrum te ar, left, initial encounter (Primary Dx); Tear of right acetabular labrum, subsequent encounter Start: 01-01-2024 End: 01-01-2024 ambulatory [facility] Comment on above: Tear of right acetab ular labrum, subsequent encounter (Primary Dx); Acetabular labrum tear, unspecified laterality, subsequent encounter Start: 12-25-2023 End: 12-25-2023 ambulatory Jaja O'Jose PT [facility] Comment on above: Tear of right acetab ular labrum, subsequent encounter (Primary Dx); Acetabular labrum tear, left, initial encounter Start: 12-25-2023 End: 12-25-2023 Patient encounter procedure Debbie Mustafa PA-C Work Phone: [facility] [place] [facility] [place] Comment on above: Acetabular labrum te ar, left, initial encounter (Primary Dx); Tear of right acetabular labrum, subsequent encounter Start: 12-18-2023 End: 12-18-2023 ambulatory Jaja O'Jose PT [facility] Comment on above: Acetabular labrum te ar, left, initial encounter (Primary Dx); Tear of right acetabular labrum, subsequent encounter Start: 12-14-2023 End: 12-14-2023 ambulatory Jaja O'Jose PT [facility] Comment on above: Tear of right acetab ular labrum, subsequent encounter (Primary Dx); Acetabular labrum tear, left, initial encounter Start: 12-12-2023 Telephone encounter Vlad hart AT Work Phone: [facility] Comment on above: Skull Chopper - O ther Start: 12-07-2023 End: 12-07-2023 ambulatory Jaja O'Jose PT [facility] Comment on above: Tear of right acetab ular labrum, subsequent encounter (Primary Dx) Start: 12-07-2023 End: 12-07-2023 ambulatory Debbie Mustafa PA-C Work Phone: [facility] [place] Comment on above: Tear of right acetab ular labrum, subsequent encounter (Primary Dx) Start: 12-07-2023 End: 12-07-2023 Telemedicine consultation with patient Debbie Mustafa PA-C Work Phone: [facility] [address] Start: 12-04-2023 End: 12-04-2023 ambulatory DIANE Gamez [facility] Facility:[facility] Start: 12-04-2023 Encounter for other preprocedural examination [facility] Start: 12-04-2023 End: 12-04-2023 Admission to [place] [id number] Work Phone: [facility] Start: 12-04-2023 End: 12-04-2023 [place] [id number] Work Phone: Pre Anesthesia Comment on above: Preoperative examina tion (Primary Dx); Severe persistent asthma without complication; Irritable bowel syndrome with diarrhea Start: 12-04-2023 End: 12-04-2023 Preprocedural examination done [place] [id number] Work Phone: [facility] Work Phone: Start: 11-30-2023 End: 11-30-2023 ambulatory Jaja O'Jose PT [facility] Comment on above: Tear of acetabular l abrum, unspecified laterality, subsequent encounter (Primary Dx) Start: 11-29-2023 Admission to [facility] Vlad Allen AT Work Phone: [facility] [place] [place] Comment on above: Schedule Surgery (Le ft hip arthroscopy ) Start: 11-29-2023 ambulatory Vlad brannon AT Work Phone: [facility] Start: 11-23-2023 End: 11-23-2023 ambulatory Jaja O'Jose PT [facility] Comment on above: Tear of acetabular l abrum, unspecified laterality, subsequent encounter (Primary Dx) Start: 11-14-2023 End: 11-14-2023 ambulatory Jaja O'Jose PT [facility] Comment on above: Tear of acetabular l abrum, unspecified laterality, subsequent encounter (Primary Dx) Start: 11-13-2023 End: 11-13-2023 Patient encounter procedure Debbie Mustafa PA-C Work Phone: [facility] [place] Comment on above: Tear of right acetab ular labrum, subsequent encounter (Primary Dx) Start: 11-09-2023 End: 11-09-2023 ambulatory Jaja O'Jose PT [facility] Comment on above: Tear of acetabular l abrum, unspecified laterality, subsequent encounter (Primary Dx) Start: 11-02-2023 End: 11-02-2023 ambulatory Jaja Leonard PT [facility] Comment on above: Acetabular labrum te ar, unspecified laterality, subsequent encounter (Primary Dx) Start: 11-01-2023 End: 11-01-2023 ambulatory DIANE BAZZI Facility:[facility] Start: 10-31-2023 End: 10-31-2023 ambulatory [facility] Work Phone: Start: 10-31-2023 End: 10-31-2023 Patient encounter procedure [facility] Work Phone: Start: 10-30-2023 Refill Sam Hankins MD Work Phone: Allergy Comment on above: Refill Request Start: 10-26-2023 End: 10-26-2023 Subsequent hospital visit by physician [facility] Comment on above: Tear of right acetab ular labrum, subsequent encounter [S73.191D] Start: 09-27-2023 End: 09-27-2023 ambulatory [facility] Work Phone: Start: 09-27-2023 End: 09-27-2023 Patient encounter procedure [facility] [place] Work Phone: Start: 09-04-2023 End: 09-04-2023 Subsequent hospital visit by physician Mri [facility] (I-Stat/1.5t) Work Phone: Radiology Comment on above: Bilateral hip pain [ M25.551, M25.552] Start: 09-03-2023 End: 09-03-2023 Office outpatient visit 25 minutes Bessie Pleitez PA-C Work Phone: Pulmonary Medicine Comment on above: 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); Pain in joint, multiple sites Start: 08-28-2023 ambulatory True Gaytan MD Work Phone: Pulmonary Medicine Comment on above: Prednisone not on re newal list.. Start: 08-19-2023 Refill Sam Hankins MD Work Phone: Allergy Comment on above: Refill Request Start: 08-04-2023 ambulatory Diane thomas MD Work Phone: [facility] Start: 08-04-2023 Patient encounter procedure Diane Bazzi MD Work Phone: Internal Medicine [place] Comment on above: Pull Over r eferral Start: 08-03-2023 End: 08-03-2023 Patient encounter procedure Ben Leblanc MD Work Phone: General Surgery Comment on above: Diarrhea, unspecifie d type (Primary Dx); Nausea Start: 07-10-2023 Telephone encounter Mary myrick MD Work Phone: Mammography Comment on above: Mammogram Result Jos l Back Start: 07-09-2023 Documentation procedure Mammog brittaney Coordinator [facility] Start: 07-09-2023 Letter encounter Mammography Coordinator [facility] Department Start: 06-26-2023 End: 06-26-2023 Patient encounter procedure Ben Leblanc MD Work Phone: General Surgery Comment on above: Diarrhea, unspecifie d type (Primary Dx); Nausea; Epigastric pain; Rectal bleeding Start: 06-16-2023 End: 06-16-2023 Office outpatient visit 15 minutes Diane Bazzi MD Work Phone: Internal Medicine [place] Comment on above: Alternating constipa tion and diarrhea (Primary Dx); Rectal fullness; Increased mucus in stool; Change in bowel habits; Bleeding hemorrhoids Start: 05-30-2023 End: 05-30-2023 Office outpatient visit 15 minutes Jayden Banegas APRN.CNP Work Phone: [facility] Comment on above: Loose stools (Primar y Dx) Start: 05-25-2023 End: 05-25-2023 Subsequent hospital visit by physician Avtar [facility] [place] Work Phone: Radiology Comment on above: Bilateral hip pain [ M25.551, M25.552] Start: 05-25-2023 End: 05-25-2023 Office outpatient visit 15 minutes Diane Bazzi MD Work Phone: Internal Medicine [place] Comment on above: Bilateral hip pain ( Primary Dx); Back strain, initial encounter; Class 1 obesity due to excess calories with body mass index (BMI) of 33.0 to 33.9 in adult, unspecified whether serious comorbidity present Start: 05-20-2023 ambulatory Diane thomas MD Work Phone: Internal Medicine [place] Comment on above: hip pain Start: 05-15-2023 Telephone encounter Sam valero MD Work Phone: Allergy Comment on above: Charlesspjani PA Start: 05-06-2023 ambulatory Diane thomas MD Work Phone: Internal Medicine [place] Comment on above: Hip pain Start: 05-04-2023 End: 05-04-2023 Patient encounter procedure True Gaytan MD Work Phone: Pulmonary Medicine Comment on above: 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); Pain in joint, multiple sites; Class 1 obesity due to excess calories without serious comorbidity with body mass index (BMI) of 33.0 to 33.9 in adult Start: 04-13-2023 End: 04-19-2023 Office outpatient visit 15 minutes Diane Bazzi MD Work Phone: Internal Medicine [place] Comment on above: Back strain, initial encounter (Primary Dx) Start: 04-01-2023 End: 04-01-2023 Patient encounter procedure Keli Bosch PA-C Work Phone: [facility] Comment on above: APPOINTMENT CANCELLE D (Primary Dx) Start: 01-03-2023 Refill Sam Hankins MD Work Phone: Allergy Comment on above: Refill Request Start: 12-05-2022 Orders Only True Gaytan MD Work Phone: Pulmonary Medicine Comment on above: Asthma, unspecified asthma severity, unspecified whether complicated, unspecified whether persistent (Primary Dx); Allergy, subsequent encounter Start: 12-04-2022 ambulatory True Gaytan MD Work Phone: [facility] Start: 12-04-2022 Patient encounter procedure True Gaytan MD Work Phone: Pulmonary Medicine Comment on above: Need letter of refer ral for Dr. Hankins-new insurance Start: 12-01-2022 End: 12-01-2022 Nursing evaluation of patient and report Nurse Stan Hughes Work Phone: Allergy Comment on above: 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) Start: 11-22-2022 ambulatory Sam Hankins MD Work Phone: Allergy Comment on above: New insurance card Start: 11-22-2022 Telephone encounter Sam valero MD Work Phone: Allergy Comment on above: [employer] PA Start: 10-10-2022 Telephone encounter Sam valero MD Work Phone: Allergy Comment on above: [employer] Patient Ass istance Form Start: 10-06-2022 End: 10-06-2022 Nursing evaluation of patient and report Nurse Stan Hughes Work Phone: Allergy Comment on above: 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) Start: 09-28-2022 ambulatory Sam Hankins MD Work Phone: Allergy Comment on above: will end insurance a nd start new insurance soon Start: 09-26-2022 Refill Sam Hankins MD Work Phone: Allergy Comment on above: Med Change Request Start: 09-06-2022 End: 09-06-2022 Patient encounter procedure Sam Hankins MD Work Phone: Allergy Comment on above: 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); Chronic rhinitis; Seasonal allergic rhinitis due to pollen Start: 08-18-2022 Refill Bessie Rudd PA-C Work Phone: Pulmonary Medicine Comment on above: Refill Request Start: 08-11-2022 End: 08-11-2022 Nursing evaluation of patient and report Nurse Stan Hughes Work Phone: Allergy Comment on above: 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) Start: 07-31-2022 Telephone encounter Sam valero MD Work Phone: Allergy Comment on above: Inhaler-Formulary Start: 07-13-2022 End: 07-13-2022 Patient encounter procedure True Gaytan MD Work Phone: Pulmonary Medicine Comment on above: Severe persistent as thma, unspecified whether complicated (Primary Dx); Class 1 obesity due to excess calories with serious comorbidity and body mass index (BMI) of 34.0 to 34.9 in adult Start: 06-16-2022 End: 06-16-2022 Patient encounter procedure Rupal Storm APRN.[facility] Work Phone: Internal Medicine [place] Comment on above: Annual physical exam (Primary Dx); Severe persistent asthma without complication; Muscle cramping; Need for influenza vaccination; Encounter for immunization Start: 06-14-2022 End: 06-14-2022 Nursing evaluation of patient and report Nurse Stan [facility] Work Phone: Allergy Comment on above: 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) Start: 05-30-2022 Telephone encounter Sam valero MD Work Phone: Allergy Comment on above: ENROLLMENT FOR TEZSP JANI Start: 05-30-2022 End: 05-30-2022 Patient encounter procedure Sam Hankins MD Work Phone: Allergy Comment on above: 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); Seasonal allergic rhinitis due to pollen; Chronic rhinitis Start: 04-21-2022 Refill Bessie Rudd PA-C Work Phone: Pulmonary Medicine Comment on above: Refill Request Start: 04-19-2022 End: 04-19-2022 ambulatory [facility] Work Phone: Pulmonary Medicine Comment on above: Spirometry Start: 04-19-2022 End: 04-19-2022 Patient encounter procedure Pulm Fct Lab [facility] Work Phone: [facility] Comment on above: 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); Seasonal allergic rhinitis due to pollen; [id number] adverse effect of medication, initial encounter Start: 04-11-2022 Orders Only Sam Hankins MD Work Phone: Allergy Comment on above: Asthma, unspecified asthma severity, unspecified whether complicated, unspecified whether persistent (Primary Dx) Start: 03-30-2022 End: 03-30-2022 ambulatory Respiratory Therapist [facility] Work Phone: Pulmonary Medicine Comment on above: Spirometry Start: 03-30-2022 End: 03-30-2022 Patient encounter procedure Respiratory Therapist [facility] Work Phone: [facility] Comment on above: Moderate persistent asthma with acute exacerbation (Primary Dx); Moderate persistent asthma without complication; Allergic rhinitis, unspecified seasonality, unspecified trigger; Post-nasal drip Start: 02-28-2022 End: 02-28-2022 Patient encounter procedure Dariusz Berry APRN.SIDE [employer]ER Work Phone: Internal Medicine [place] Comment on above: Uncomplicated asthma , unspecified asthma severity, unspecified whether persistent (Primary Dx); Encounter for immunization; Allergic rhinitis, unspecified seasonality, unspecified trigger Start: 01-28-2022 Refill True Gaytan MD Work Phone: Pulmonary Medicine Comment on above: Refill Request Start: 12-31-2021 Telephone encounter Jayden arriaga APRN.WAREHOUSE REPRESENTATIVE Work Phone: [facility] Comment on above: Results Start: 12-31-2021 End: 12-31-2021 Subsequent hospital visit by physician Xr [facility] Work Phone: Radiology Comment on above: Wheezing [R06.2] Start: 12-30-2021 End: 12-30-2021 Patient encounter procedure Barby Daugherty APRN.WAREHOUSE REPRESENTATIVE Work Phone: [facility] Comment on above: Viral illness (Prima ry Dx); Wheezing; Cough; Acute conjunctivitis of right eye, unspecified acute conjunctivitis type Start: 09-09-2021 End: 09-09-2021 Subsequent hospital visit by physician Xr [facility] Work Phone: Radiology Comment on above: Cough [R05.9] Procedures Date Procedure Procedure Detail Performing Clinician Start: 01-23-2025 UA DIP,URINE HCG (POC) Lelia Novak TOWER ERECTOR HELPER.CNM Work Phone: Start: 11-07-2024 Arthrocentesis aspir &/inj major jt/bursa w/us Debbie Mustafa PA-C Work Phone: Start: 09-29-2024 Radiologic exam ches t 2 views Ollie Moomaw TOWER ERECTOR HELPER.WAREHOUSE REPRESENTATIVE Work Phone: Start: 09-19-2024 Radex hip unilateral with pelvis 2-3 views Debbie Mustafa PA-C Work Phone: Start: 09-01-2024 Mri brain brain stem w/o w/contrast material Sydney José MD Work Phone: Start: 08-08-2024 Us breast uni real t luc with image limited Lelia Novak TOWER ERECTOR HELPER.CNM Work Phone: Start: 08-08-2024 Digital breast tomosynthesis unilateral Lelia Robleslesia TOWER ERECTOR HELPER.CNM Work Phone: Start: 07-18-2024 Adult depression scr eening assessment Screen [facility] Start: 07-08-2024 Nitric oxide gas determination True Gaytan MD Work Phone: Start: 07-08-2024 Brncdilat rspse spmt ry pre&post-brncdilat admn True Gaytan MD Work Phone: Start: 10-31-2023 Computed tomography of abdomen and pelvis with contrast Start: 10-26-2023 Radex hips bilateral with pelvis minimum 5 views Debbie WILSON-C Work Phone: Start: 09-04-2023 Mri any jt lower ext rem w/o contrast matrl Diane Bazzi MD Work Phone: Start: 05-25-2023 Radex hips bilateral with pelvis minimum 5 views Diane Bazzi MD Work Phone: Start: 06-16-2022 INFLUENZA VACCINE QUADRIVALENT 6 MO - 64 YRS IM Rupal Storm TOWER ERECTOR HELPER.WAREHOUSE REPRESENTATIVE Work Phone: Start: 06-16-2022 Adult depression scr eening assessment Rupal Storm TOWER ERECTOR HELPER.WAREHOUSE REPRESENTATIVE Work Phone: Start: 04-19-2022 Nitric oxide gas determination Sam Hankins MD Work Phone: Start: 04-19-2022 ALLERGEN SKIN TEST-PENICILLIN Sam Hankins MD Work Phone: Start: 04-19-2022 Ingestion challenge test initial 120 minutes Sam Hankins MD Work Phone: Start: 04-19-2022 INHALANT 32 ALLERGEN SKIN TEST Sam Hankins MD Work Phone: Start: 04-19-2022 Brncdilat rspse spmt ry pre&post-brncdilat admn Sam Hankins MD Work Phone: Start: 12-31-2021 Radiologic exam ches t 2 views Barby Daugherty APRN.WAREHOUSE REPRESENTATIVE Work Phone: Start: 09-09-2021 Radiologic exam ches t 2 views Santos [employer] TOWER ERECTOR HELPER.WAREHOUSE REPRESENTATIVE Work Phone: Start: 07-23-2021 Adult depression scr eening assessment Barby Daugherty TOWER ERECTOR HELPER.WAREHOUSE REPRESENTATIVE Work Phone: Plan of Treatment Date Care Activity Detail Author Start: 2028 Urine microalbumin profile [facility] Start: 11-10-2026 HPV TESTING HPV TESTING [facility] Start: 11-10-2026 PAP TESTING PAP TESTING [facility] Start: 11-10-2026 Screening for malignant neoplasm of cervix [facility] Start: 07-18-2025 Annual PCP Team Chronic Disease Visit Annual PCP Team Chronic Disease Visit [facility] Start: 07-18-2025 Anxiety Screening Anxiety Screening [facility] Start: 07-18-2025 Depression Screening Depression Screening [facility] Start: 07-18-2025 Screening for malignant neoplasm of breast Mammogram Screening [facility] Start: 07-13-2025 End: 07-13-2025 ambulatory 07/13/2025 4:45 PM EDT Results Only Theresa [facility] [address] [place] [address] Theresa [facility] Start: 07-10-2025 End: 07-10-2025 Patient encounter procedure Pulmonary Medicine Comment on above: 6 month follow up Start: 07-10-2025 End: 02-07-2026 US Pelvis transvaginal US FEMALE PELVIS TRANSVAG Radiology Routine Uterine leiomyoma, unspecified location Hemorrhagic ovarian cyst Adenomyosis Expected: 07/10/2025, Expires: 02/07/2026 [facility] Work Phone: Comment on above: Expected: 07/10/2025, Expires: Start: 06-19-2025 End: 06-19-2025 Patient encounter procedure Mammogram Comment on above: Encounter for screening mammogram for br east cancer [Z12.31] Annual Start: 04-13-2025 End: 04-13-2025 ambulatory 04/13/2025 4:45 PM EDT Results Only Theresa [facility] Draw [facility] [address] [place] [address] Theresa [facility] Start: 04-13-2025 End: 04-13-2025 Patient encounter procedure 04/13/2025 1:40 PM EDT Office Visit OB/Gynecology [address] [place] [address] Al Kaba MD [address] [place] [address] 6 week post-op OB/Gynecology Comment on above: 6 week post-op Start: 03-16-2025 End: 03-16-2025 Patient encounter procedure 03/16/2025 10:50 AM EDT Office Visit OB/Gynecology [address] [place] [address] Deedee Larios MD [address] [place] [address] 1 week post -op OB/Gynecology Comment on above: 1 week post -op Start: 02-20-2025 End: 02-20-2025 Patient encounter procedure 02/20/2025 9:20 AM EDT Office Visit OB/Gynecology [address] [place] [address] Al Kaba MD [address] [place] [address] surgery 03/06 OB/Gynecology Comment on above: surgery 03/06 Start: 02-17-2025 End: 02-17-2025 Nursing evaluation of patient and report 02/17/2025 3:45 PM EDT Nurse Visit Family [facility] Theresa [address] [facility] [place] [address] Nurse, N[place] [address] [place] [address] Hep B #3 [facility] Comment on above: Hep B #3 Start: 02-15-2025 Hepatitis B Vaccine (3 of 3 - 19+ 3-dose series) Hepatitis B Vaccine (3 of 3 - 19+ 3-dose series) [facility] Start: 01-23-2025 End: 01-23-2025 Patient encounter procedure 01/23/2025 9:30 AM EDT Office Visit OB/Gynecology [address] [place] [address] Lelia Novak APRN.[facility] [address] [place] [address] E[facility] OB/Gynecology Comment on above: EMB Start: 01-12-2025 End: 01-12-2025 ambulatory 01/12/2025 4:45 PM EDT Results Only Theresa [facility] [address] [place] [address] [facility] Start: 01-06-2025 End: 01-06-2025 Patient encounter procedure Pulmonary Medicine Comment on above: 6 MTH F/U ASTHMA Irregular periods/me nstrual cycles [N92.6] Start: 01-05-2025 End: 01-05-2025 ambulatory 01/05/2025 4:00 PM EDT Results Only [facility] [address] [place] [address] [facility] Start: 01-02-2025 End: 04-03-2025 CBC panel - Blood by Automated count COMPLETE BLOOD COUNT Lab Routine Irregular periods/menstrual cycles Expected: 01/02/2025, Expires: 04/03/2025 [facility] Comment on above: Expected: 01/02/2025, Expires: Start: 12-23-2024 End: 12-23-2024 ambulatory 12/23/2024 6:00 PM EDT OT/PT/Speech Visit [facility] [address] [place] [address] Selma'Jaja Garcia, PT Dx: Acetabular labrum tear, left, subsequent encounter [S73.192D (ICD-10-CM)]; Radiculopathy, lumbar region [M54.16 (ICD-10-CM)] [facility] Comment on above: Dx: Acetabular labrum tear, left, subseq uent encounter [S73.192D (ICD-10-CM)]; Radiculopathy, lumbar region [M54.16 (ICD-10-CM)] Start: 12-16-2024 End: 12-16-2024 ambulatory 12/16/2024 6:00 PM EDT OT/PT/Speech Visit [facility] [address] [place] [address] Selma'Jaja Garcia, PT Dx: Acetabular labrum tear, left, subsequent encounter [S73.192D (ICD-10-CM)]; Radiculopathy, lumbar region [M54.16 (ICD-10-CM)] [facility] Comment on above: Dx: Acetabular labrum tear, left, subseq uent encounter [S73.192D (ICD-10-CM)]; Radiculopathy, lumbar region [M54.16 (ICD-10-CM)] Start: 12-09-2024 End: 12-09-2024 ambulatory 12/09/2024 6:00 PM EDT OT/PT/Speech Visit [facility] [address] [place] [address] O'Jaja Garcia, PT Dx: Acetabular labrum tear, left, subsequent encounter [S73.192D (ICD-10-CM)]; Radiculopathy, lumbar region [M54.16 (ICD-10-CM)] [facility] Comment on above: Dx: Acetabular labrum tear, left, subseq uent encounter [S73.192D (ICD-10-CM)]; Radiculopathy, lumbar region [M54.16 (ICD-10-CM)] Start: 12-02-2024 End: 12-02-2024 ambulatory 12/02/2024 6:00 PM EDT OT/PT/Speech Visit [facility] [address] [place] [address] O'JoseJaja martinez, PT Dx: Acetabular labrum tear, left, subsequent encounter [S73.192D (ICD-10-CM)]; Radiculopathy, lumbar region [M54.16 (ICD-10-CM)] [facility] Comment on above: Dx: Acetabular labrum tear, left, subseq uent encounter [S73.192D (ICD-10-CM)]; Radiculopathy, lumbar region [M54.16 (ICD-10-CM)] Start: 11-25-2024 End: 11-25-2024 ambulatory 11/25/2024 6:00 PM EST OT/PT/Speech Visit [facility] [address] [facility], [place] [address] O'JoseJaja martinez, PT Dx: Acetabular labrum tear, left, subsequent encounter [S73.192D (ICD-10-CM)]; Radiculopathy, lumbar region [M54.16 (ICD-10-CM)] [facility] Comment on above: Dx: Acetabular labrum tear, left, subseq uent encounter [S73.192D (ICD-10-CM)]; Radiculopathy, lumbar region [M54.16 (ICD-10-CM)] Start: 11-21-2024 End: 11-21-2024 Patient encounter procedure 11/21/2024 9:40 AM EST Office Visit Internal Medicine [facility] [address] [place] [address] Dariusz Berry APRN.SIDE PULLER [address] [place] [address] 3 mo follow up Internal Medicine [facility] Comment on above: 3 mo follow up Start: 11-17-2024 End: 11-17-2024 ambulatory 11/17/2024 6:00 PM EST OT/PT/Speech Visit [facility] [address] [place] [address] Clair Melendez, BONE PULLER [address] [place] [address] Dx: Acetabular labrum tear, left, subsequent encounter [S73.192D (ICD-10-CM)]; Radiculopathy, lumbar region [M54.16 (ICD-10-CM)] [facility] Comment on above: Dx: Acetabular labrum tear, left, subseq uent encounter [S73.192D (ICD-10-CM)]; Radiculopathy, lumbar region [M54.16 (ICD-10-CM)] Start: 11-14-2024 End: 11-14-2024 Patient encounter procedure 11/14/2024 11:45 AM EST Office Visit Otolaryngology [address] [place] [address] Abran Tate PA-C [address] [place] [address] Hoarseness of voice [R49.0] Otolaryngology Comment on above: Hoarseness of voice [R49.0] Start: 11-07-2024 End: 11-07-2024 Patient encounter procedure 11/07/2024 1:30 PM EST Appointment Radiology [address] [place] [address] GAP - LT HIP ARTHROGRAM Radiology Comment on above: GAP - LT HIP ARTHROGRAM Start: 11-07-2024 End: 11-07-2024 Patient encounter procedure 11/07/2024 9:20 AM EST Office Visit Internal Medicine [facility] [address] [place] [address] Dariusz Berry APRN.SIDE PULLER [address] [place] [address] 3 month f/u Internal Medicine [facility] Comment on above: 3 month f/u Start: 11-05-2024 End: 11-05-2024 ambulatory 11/05/2024 8:15 AM EST OT/PT/Speech Visit [facility] [address] [place] [address] Jaaj Leonard, PT functioning with less pain in general [facility] Comment on above: functioning with less pain in general Start: 10-24-2024 End: 10-24-2024 Patient encounter procedure 10/24/2024 9:30 AM EST Office Visit [facility] [place] [address] [place] [address] Debbie Mustafa, PA-C [address] [place] [address] 4/WK FOLLOW UP [facility] [place] Comment on above: 4/WK FOLLOW UP Start: 10-23-2024 End: 10-23-2024 Patient encounter procedure 10/23/2024 10:50 AM EST Office Visit Dermatology [address] [place] [address] [place] [address] [place] [address] shave biopsy Dermatology Comment on above: shave biopsy Start: 10-17-2024 End: 10-17-2024 ambulatory 10/17/2024 10:45 AM EST Results Only Theresa Welchwn [facility] [address] [place] [address] Theresa Welchwn [facility] Start: 10-17-2024 End: 10-17-2024 ambulatory 10/17/2024 8:45 AM EST OT/PT/Speech Visit [facility] [address] [place] [address] Enrique Almonte, PT being able to do my normal activities les pain [facility] Comment on above: being able to do my normal activities le s pain Start: 10-13-2024 End: 10-13-2024 ambulatory 10/13/2024 4:45 PM EST Results Only [facility] [address] [place] [address] [facility] Start: 10-10-2024 End: 10-10-2024 ambulatory 10/10/2024 1:15 PM EST OT/PT/Speech Visit [facility] [address] [place] [address] Jaja Leonard, PT being able to sit and move with less pain [facility] Comment on above: being able to sit and move with less kiki n Start: 10-07-2024 End: 10-07-2024 Patient encounter procedure 10/07/2024 11:45 AM EST Office Visit Otolaryngology [address] [place] [address] Abran Tate PA-C [address] [place] [address] Hoarseness of voice [R49.0] Otolaryngology Comment on above: Hoarseness of voice [R49.0] Start: 10-02-2024 End: 10-02-2024 Patient encounter procedure 10/02/2024 8:50 AM EST Office Visit Otolaryngology [address] [place] [address] Abran Tate PA-C [address] [place] [address] Hoarseness of voice [R49.0] Otolaryngology Comment on above: Hoarseness of voice [R49.0] Start: 09-23-2024 End: 09-23-2024 Patient encounter procedure 09/23/2024 11:20 AM EST Office Visit Otolaryngology [address] [place] [address] Abran Tate PA-C [address] [place] [address] Hoarseness of voice [R49.0] Otolaryngology Comment on above: Hoarseness of voice [R49.0] Start: 09-19-2024 End: 09-19-2024 Patient encounter procedure 09/19/2024 9:00 AM EST Office Visit [facility] [place] [address] [place] [address] Debbie Mustafa PA-C [address] [place] [address] FOLLOW UP [facility] [place] Comment on above: FOLLOW UP Start: 09-16-2024 End: 09-16-2024 Nursing evaluation of patient and report 09/16/2024 11:30 AM EST Nurse Visit Family [address] [address] Nurse, [address] [address] Hep #2 [facility] Comment on above: Hep #2 Start: 09-15-2024 Hepatitis B Vaccine (2 of 3 - 19+ 3-dose series) Hepatitis B Vaccine (2 of 3 - 19+ 3-dose series) [facility] Start: 09-15-2024 End: 09-15-2024 Patient encounter procedure Dermatology Comment on above: Numerous moles [D22.9] TSH elevation [R79.8 9] Start: 09-11-2024 End: 09-11-2024 Patient encounter procedure 09/11/2024 9:30 AM EST Office Visit NEUROLOGY [address] [place] [address] Juli Do APRN.WAREHOUSE REPRESENTATIVE [address] [place] [address] Telangiectasia/MR Result NEUROLOGY Comment on above: Telangiectasia/MR Result Start: 09-01-2024 End: 09-01-2024 Patient encounter procedure 09/01/2024 2:30 PM EST Appointment Radiology [address] [place] [address] MRI BRAIN WO/W IVCON Radiology Comment on above: MRI BRAIN WO/W IVCON Start: 08-08-2024 End: 08-08-2024 Patient encounter procedure 08/08/2024 9:30 AM EST Appointment Mammography [address] [address] ANGEL DIAGNOSTIC RIGHT CB PER Mammography Comment on above: ANGEL DIAGNOSTIC RIGHT CB PER AH Start: 08-04-2024 End: 11-03-2024 FARAZ BY IFA SCREEN [facility] Comment on above: Expected: 08/04/2024, Expires: Start: 08-04-2024 End: 11-03-2024 C reactive protein [Mass/volume] in Serum or Plasma [facility] Comment on above: Expected: 08/04/2024, Expires: Start: 08-04-2024 End: 11-03-2024 CBC W Auto Differential panel - Blood [facility] Comment on above: Expected: 08/04/2024, Expires: Start: 08-04-2024 End: 11-03-2024 Comprehensive metabolic 2000 panel - Serum or Plasma [facility] Work Phone: Comment on above: Expected: 08/04/2024, Expires: Start: 08-04-2024 End: 11-03-2024 Erythrocyte sedimentation rate [facility] Comment on above: Expected: 08/04/2024, Expires: Start: 08-04-2024 End: 11-03-2024 Ferritin [Mass/volume] in Serum or Plasma [facility] Comment on above: Expected: 08/04/2024, Expires: Start: 08-04-2024 End: 11-03-2024 Hemoglobin A1c in Blood [facility] Comment on above: Expected: 08/04/2024, Expires: Start: 08-04-2024 End: 11-03-2024 Heterophile Ab [Presence] in Serum by Latex agglutination [facility] Comment on above: Expected: 08/04/2024, Expires: Start: 08-04-2024 End: 11-03-2024 Rheumatoid factor [Units/volume] in Serum or Plasma [facility] Comment on above: Expected: 08/04/2024, Expires: Start: 08-04-2024 End: 11-03-2024 THYROID PEROXIDASE ANTIBODY [facility] Comment on above: Expected: 08/04/2024, Expires: Start: 08-04-2024 End: 11-03-2024 Urinalysis complete panel - Urine [facility] Comment on above: Expected: 08/04/2024, Expires: Start: 07-31-2024 End: 07-31-2024 Patient encounter procedure 07/31/2024 2:40 PM EST Office Visit Internal Medicine [facility] [address] [place] [address] Dariusz Berry APRN.SIDE PULLER [address] [place] [address] suspicious looking moles/and wart [facility] Comment on above: suspicious looking moles/and wart Start: 07-25-2024 End: 07-25-2024 Patient encounter procedure 07/25/2024 7:00 AM EDT Appointment Radiology [address] [place] [address] Enlarged thyroid [E04.9] Radiology Comment on above: Enlarged thyroid [E04.9] Start: 07-18-2024 End: 07-18-2024 Patient encounter procedure 07/18/2024 7:30 AM EDT Appointment Mammogram [address] [place] [address] Mammogram Start: 07-08-2024 End: 07-08-2024 Patient encounter procedure 07/08/2024 2:45 PM EDT Office Visit Pulmonary Medicine [address] [place] [address] True Gaytan MD [address] [place] [address] 6 month follow up Pulmonary Medicine Comment on above: 6 month follow up Start: 07-08-2024 End: 07-08-2024 ambulatory [facility]M [facility] Comment on above: Severe persistent asthma without complic ation [J45.50] Start: 07-06-2024 Mammography Mammogram Screening [facility] Start: 07-06-2024 Screening for malignant neoplasm of breast Mammogram Screening [facility] Start: 06-16-2024 Annual PCP Team Chronic Disease Visit Annual PCP Team Chronic Disease Visit [facility] Start: 06-16-2024 BP Controlled (<130/80) BP Controlled (<130/80) [facility] in Start: 06-13-2024 End: 06-13-2024 Patient encounter procedure 06/13/2024 8:15 AM EDT Office Visit OB/Gynecology [address] [place] [address] Lelia Novak APRN.CNM [address] [place] [address] yearly OB/Gynecology Comment on above: yearly Start: 06-11-2024 End: 06-11-2024 Patient encounter procedure 06/11/2024 3:30 PM EDT Office Visit Allergy [address] [address] Sam Hankins MD [address] [place] [address] annual visit Allergy Comment on above: annual visit Start: 05-25-2024 ANNUAL PCP TEAM CHRONIC DISEASE VISIT ANNUAL PCP TEAM CHRONIC DISEASE VISIT [facility] Start: 05-25-2024 Covid-19 Vaccine ( season) Covid-19 Vaccine () [facility] Start: 05-25-2024 Covid-19 Vaccine () Covid-19 Vaccine () [facility] Start: 05-25-2024 Influenza vaccination [facility] Start: 05-14-2024 End: 05-14-2024 Patient encounter procedure [facility] Comment on above: f/u hips 05/12/24 Called pt lv m and sent myc to r/s 05/14/24 appt.....CT Start: 05-06-2024 End: 05-06-2024 ambulatory 05/06/2024 3:45 PM EDT OT/PT/Speech Visit [facility] [address] [place] [address] Jaja Leonard, PT pt [facility] Comment on above: pt Start: 05-04-2024 BP CONTROLLED (<130/80) BP CONTROLLED (<130/80) [facility] Start: 04-22-2024 End: 04-22-2024 ambulatory 04/22/2024 5:15 PM EDT OT/PT/Speech Visit [facility] [address] [place] [address] Jaja Leonard, PT pt [facility] Comment on above: pt Start: 04-13-2024 ANNUAL PCP TEAM CHRONIC DISEASE VISIT ANNUAL PCP TEAM CHRONIC DISEASE VISIT [facility] Start: 04-11-2024 End: 04-11-2024 ambulatory 04/11/2024 1:15 PM EDT OT/PT/Speech Visit [facility] [address] [place] [address] Jaja Leonard, PT pt [facility] Comment on above: pt Start: 04-04-2024 End: 04-04-2024 ambulatory 04/04/2024 7:45 AM EDT OT/PT/Speech Visit [facility] [address] [place] [address] Jaja Leonard, PT pt [facility] Comment on above: pt Start: 03-18-2024 End: 03-18-2024 ambulatory 03/18/2024 6:00 PM EDT OT/PT/Speech Visit [facility] [address] [place] [address] Jaja Leonard, PT S73.199D (ICD-10-CM) - Tear of acetabular labrum, unspecified [facility] Comment on above: S73.199D (ICD-10-CM) - Tear of acetabula r labrum, unspecified Start: 03-12-2024 End: 03-12-2024 ambulatory 03/12/2024 6:00 PM EDT OT/PT/Speech Visit [facility] [address] [place] [address] Clair Melendez, BONE PULLER [address] [place] [address] S73.199D (ICD-10-CM) - Tear of acetabular labrum, unspecified [facility] Comment on above: S73.199D (ICD-10-CM) - Tear of acetabula r labrum, unspecified Start: 03-11-2024 End: 03-11-2024 Patient encounter procedure 03/11/2024 10:45 AM EDT Office Visit [facility] [place] [address] [place] [address] Betsey Partida MD [address] [place] [address] LEFT HIP-12 WK POST OP [facility] [place] Comment on above: LEFT HIP-12 WK POST OP Start: 03-10-2024 End: 03-10-2024 ambulatory 03/10/2024 6:00 PM EDT OT/PT/Speech Visit [facility] [address] [place] [address] Clair Melendez, BONE PULLER [address] [place] [address] S73.199D (ICD-10-CM) - Tear of acetabular labrum, unspecified [facility] Comment on above: S73.199D (ICD-10-CM) - Tear of acetabula r labrum, unspecified Start: 03-05-2024 End: 03-05-2024 ambulatory 03/05/2024 6:00 PM EDT OT/PT/Speech Visit [facility] [address] [place] [address] Jaja Leonard, PT S73.199D (ICD-10-CM) - Tear of acetabular labrum, unspecified [facility] Comment on above: S73.199D (ICD-10-CM) - Tear of acetabula r labrum, unspecified Start: 03-03-2024 End: 03-03-2024 ambulatory 03/03/2024 6:00 PM EDT OT/PT/Speech Visit [facility] [address] [place] [address] Clair Melendez, BONE PULLER [address] [place] [address] S73.199D (ICD-10-CM) - Tear of acetabular labrum, unspecified [facility] Comment on above: S73.199D (ICD-10-CM) - Tear of acetabula r labrum, unspecified Start: 02-27-2024 End: 02-27-2024 ambulatory 02/27/2024 6:00 PM EDT OT/PT/Speech Visit [facility] [address] [place] [address] lCair Melendez, BONE PULLER [address] [place] [address] S73.199D (ICD-10-CM) - Tear of acetabular labrum, unspecified [facility] Comment on above: S73.199D (ICD-10-CM) - Tear of acetabula r labrum, unspecified Start: 02-25-2024 End: 02-25-2024 ambulatory 02/25/2024 6:00 PM EDT OT/PT/Speech Visit [facility] [address] [place] [address] Clair Melendez, BONE PULLER [address] [place] [address] S73.199D (ICD-10-CM) - Tear of acetabular labrum, unspecified [facility] Comment on above: S73.199D (ICD-10-CM) - Tear of acetabula r labrum, unspecified Start: 02-20-2024 End: 02-20-2024 ambulatory 02/20/2024 6:00 PM EDT OT/PT/Speech Visit [facility] [address] [place] [address] Jaja Leonard, PT S73.199D (ICD-10-CM) - Tear of acetabular labrum, unspecified [facility] Comment on above: S73.199D (ICD-10-CM) - Tear of acetabula r labrum, unspecified Start: 02-11-2024 End: 02-11-2024 ambulatory 02/11/2024 5:15 PM EDT OT/PT/Speech Visit [facility] [address] [place] [address] Clair Melendez, BONE PULLER [address] [place] [address] S73.199D (ICD-10-CM) - Tear of acetabular labrum, unspecified [facility] Comment on above: S73.199D (ICD-10-CM) - Tear of acetabula r labrum, unspecified Start: 02-06-2024 End: 02-06-2024 ambulatory 02/06/2024 6:00 PM EDT OT/PT/Speech Visit [facility] [address] [place] [address] Jaja Leonard, PT S73.199D (ICD-10-CM) - Tear of acetabular labrum, unspecified [facility] Comment on above: S73.199D (ICD-10-CM) - Tear of acetabula r labrum, unspecified Start: 01-29-2024 End: 01-29-2024 ambulatory 01/29/2024 5:15 PM EDT OT/PT/Speech Visit [facility] [address] [place] [address] Jaja Leonard, PT S73.199D (ICD-10-CM) - Tear of acetabular labrum, unspecified [facility] Comment on above: S73.199D (ICD-10-CM) - Tear of acetabula r labrum, unspecified Start: 01-25-2024 End: 01-25-2024 ambulatory 01/25/2024 2:40 PM EDT [facility] [address] [place] [id number] Debbie Mustafa PALindaC [address] [place], [place] [id number] POST OP LEFT HIP DOS 12/13/23, RIGHT HIP [facility] Comment on above: POST OP LEFT HIP DOS 12/13/23, RIGHT HIP Start: 01-22-2024 End: 01-22-2024 ambulatory 01/22/2024 5:15 PM EDT OT/PT/Speech Visit [facility] [address] [place] [address] Jaja Leonard, PT S73.199D (ICD-10-CM) - Tear of acetabular labrum, unspecified [facility] Comment on above: S73.199D (ICD-10-CM) - Tear of acetabula r labrum, unspecified Start: 12-30-2023 BP CONTROLLED (<130/80) BP CONTROLLED (<130/80) [facility] Start: 12-02-2023 BP CONTROLLED (<130/80) BP CONTROLLED (<130/80) [facility] Start: 10-06-2023 BP CONTROLLED (<130/80) BP CONTROLLED (<130/80) [facility] Start: 09-27-2023 Protein measurement [facility] Start: 09-24-2023 Behavioral Health Screening Behavioral Health Screening [facility] Start: 09-24-2023 Depression Assessment Depression Assessment [facility] Start: 09-23-2023 DEPRESSION ASSESSMENT DEPRESSION ASSESSMENT [facility] Comment on above: Postponed from 09/24/2022 (Declined at t his time) Start: 09-06-2023 BP CONTROLLED (<130/80) BP CONTROLLED (<130/80) [facility] Start: 06-16-2023 Adult depression screening assessment DEPRESSION SCREENING [facility] Start: 06-16-2023 ANNUAL PCP TEAM CHRONIC DISEASE VISIT ANNUAL PCP TEAM CHRONIC DISEASE VISIT [facility] Start: 06-16-2023 BP CONTROLLED (<130/80) BP CONTROLLED (<130/80) [facility] Start: 06-16-2023 COVID-19 VACCINE (4 - Booster for Moderna series) COVID-19 VACCINE (4 - Booster for Moderna series) [facility] Comment on above: Postponed from 04/25/2022 (Declined at t his time) Start: 06-16-2023 HEPATITIS B (1 of 3 - 3-dose series) HEPATITIS B (1 of 3 - 3-dose series) [facility] Comment on above: Postponed from 1985 (Declined at t his time) Start: 05-25-2023 Covid-19 Vaccine ( season) Covid-19 Vaccine ( season) [facility] Start: 05-25-2023 Influenza vaccination [facility] Start: 05-04-2023 End: 07-04-2023 C reactive protein [Mass/volume] in Serum or Plasma [facility] Work Phone: Comment on above: Expected: 05/04/2023, Expires: Start: 05-04-2023 End: 07-04-2023 Cyclic citrullinated peptide IgG Ab [Units/volume] in Serum or Plasma [facility] Work Phone: Comment on above: Expected: 05/04/2023, Expires: 3 Start: 05-04-2023 End: 07-04-2023 Rheumatoid factor [Units/volume] in Serum or Plasma [facility] Work Phone: Comment on above: Expected: 05/04/2023, Expires: 3 Start: 02-28-2023 ANNUAL PCP TEAM CHRONIC DISEASE VISIT ANNUAL PCP TEAM CHRONIC DISEASE VISIT [facility] Start: 01-05-2023 End: 10-06-2023 SPIROMETRY - BASELINE AND POST DILATOR SPIROMETRY - BASELINE AND POST DILATOR PFT Routine Severe persistent asthma without complication Expected: 01/05/2023 (Approximate), Expires: 10/06/2023 [facility] Work Phone: Comment on above: Expected: 01/05/2023 (Approximate), Expi res: 10/06/2023 Start: 12-30-2022 BP CONTROLLED (<130/80) BP CONTROLLED (<130/80) [facility] Start: 09-24-2022 DEPRESSION ASSESSMENT DEPRESSION ASSESSMENT [facility] Start: 08-11-2022 ANNUAL PCP TEAM CHRONIC DISEASE VISIT ANNUAL PCP TEAM CHRONIC DISEASE VISIT [facility] Start: 07-23-2022 Adult depression screening assessment DEPRESSION SCREENING [facility] Start: 06-16-2022 End: 08-16-2022 CBC W Auto Differential panel - Blood [facility] Work Phone: Comment on above: Expected: 06/16/2022, Expires: 2 Start: 06-16-2022 End: 08-16-2022 Comprehensive metabolic 2000 panel - Serum or Plasma [facility] Work Phone: Comment on above: Expected: 06/16/2022, Expires: 2 Start: 06-16-2022 End: 08-16-2022 Lipid 1996 panel - Serum or Plasma [facility] Work Phone: Comment on above: Expected: 06/16/2022, Expires: 2 Start: 06-16-2022 End: 08-16-2022 Magnesium [Mass/volume] in Serum or Plasma [facility] Work Phone: Comment on above: Expected: 06/16/2022, Expires: 2 Start: 05-25-2022 Influenza vaccination [facility] Start: 05-06-2022 BP CONTROLLED (<130/80) BP CONTROLLED (<130/80) [facility] Start: 04-25-2022 COVID-19 VACCINE (4 - Booster for Moderna series) COVID-19 VACCINE (4 - Booster for Moderna series) [facility] Start: 03-30-2022 End: 05-30-[address] [facility] Work Phone: Comment on above: Expected: 03/30/2022, Expires: 2 Start: 03-30-2022 End: 05-30-2022 IgE [Units/volume] in Serum or Plasma [facility] Work Phone: Comment on above: Expected: 03/30/2022, Expires: 2 Start: 09-24-2021 DEPRESSION ASSESSMENT DEPRESSION ASSESSMENT [facility] Start: 07-28-2021 ANNUAL PCP TEAM CHRONIC DISEASE VISIT ANNUAL PCP TEAM CHRONIC DISEASE VISIT [facility] Start: 06-27-2021 COVID-19 VACCINE (3 - Booster for Moderna series) COVID-19 VACCINE (3 - Booster for Moderna series) [facility] Start: 2002 Hepatitis B Vaccine (1 of 3 - 19+ 3-dose series) Hepatitis B Vaccine (1 of 3 - 19+ 3-dose series) [facility] Start: 2001 Anxiety Screening Anxiety Screening [facility] Start: 2001 Depression Screening Depression Screening [facility] Start: 1989 PNEUMOCOCCAL (1 - PCV) PNEUMOCOCCAL (1 - PCV) [facility] Start: 1983 HEPATITIS B (1 of 3 - 3-dose series) HEPATITIS B (1 of 3 - 3-dose series) [facility] Start: 1983 Hepatitis B Vaccine (1 of 3 - 3-dose series) Hepatitis B Vaccine (1 of 3 - 3-dose series) [facility] Clostridioides difficile toxin genes [Presence] in Stool by BULMARO with probe detection C. DIFFICILE PCR Lab Routine Loose stools Ordered: 05/30/2023 [facility] Work Phone: Comment on above: Ordered: 05/30/2023 End: 06-26-2024 COLONOSCOPY DIAGNOSTIC COLONOSCOPY DIAGNOSTIC Endoscopy Routine Diarrhea, unspecified type Nausea Epigastric pain Rectal bleeding 1 Occurrences starting 06/26/2023 until 06/26/2024 [facility] Work Phone: Comment on above: 1 Occurrences starting 06/26/2023 until 06/26/2024 COVID & INFLUENZA A/ B & RSV PCR, ROUTINE COVID & INFLUENZA A/B & RSV PCR, ROUTINE Microbiology Routine Acute cough 09/29/2024 6:59 PM EST [facility] Work Phone: End: 07-13-2025 DBT Breast - bilateral screening ANGEL SCREENING W KALI Radiology Routine Encounter for screening mammogram for breast cancer 1 Occurrences starting 06/13/2024 until 07/13/2025 [facility] Work Phone: Comment on above: 1 Occurrences starting 06/13/2024 until 07/13/2025 DBT Breast - bilater al screening ANGEL SCREENING W KALI Radiology Routine Encounter for screening mammogram for breast cancer 07/18/2024 7:23 AM EDT [facility] Work Phone: End: 06-26-2024 EGD DIAGNOSTIC EGD DIAGNOSTIC Endoscopy Routine Diarrhea, unspecified type Nausea Epigastric pain Rectal bleeding 1 Occurrences starting 06/26/2023 until 06/26/2024 [facility] Work Phone: Comment on above: 1 Occurrences starting 06/26/2023 until 06/26/2024 Endometrial bx w/wo endocervix bx w/o dilat spx ENDOMETRIAL BIOPSY Procedures Routine Irregular periods Excessive bleeding in premenopausal period Adenomyosis Uterine leiomyoma, unspecified location Ordered: 01/08/2025 [facility] Work Phone: Comment on above: Ordered: 01/08/2025 Endometrial bx w/wo endocervix bx w/o dilat spx ENDOMETRIAL BIOPSY Procedures Routine Irregular menstruation Ordered: 01/23/2025 [facility] Work Phone: Comment on above: Ordered: 01/23/2025 ENTERIC BACTERIAL PA ANNITA BY PCR ENTERIC BACTERIAL PANEL BY PCR Lab Routine Loose stools Ordered: 05/30/2023 [facility] Work Phone: Comment on above: Ordered: 05/30/2023 Fat [Mass/mass] in Stool [facility] Fat.neutral [Presenc e] in Stool [facility] End: 11-21-2025 Guidance for injection of Hip IMAGING GUIDED HIP INJECTION LEFT Radiology Routine Acetabular labrum tear, left, subsequent encounter Pain in left hip 1 Occurrences starting 10/24/2024 until 11/21/2025 [facility] Work Phone: Comment on above: 1 Occurrences starting 10/24/2024 until 11/21/2025 Intracutaneous tests w/allergenic extracts INTRACU/DERM TESTS-IMMEDIA RX Procedures Routine Severe persistent asthma without complication Seasonal allergic rhinitis due to pollen Ordered: 04/19/2022 [facility] Work Phone: Comment on above: Ordered: 04/19/2022 End: 08-23-2025 MG Breast - right Diagnostic for implant ANGEL DIAGNOSTIC RIGHT Radiology Routine Abnormal mammogram 1 Occurrences starting 07/24/2024 until 08/23/2025 [facility] Work Phone: Comment on above: 1 Occurrences starting 07/24/2024 until 08/23/2025 End: 03-28-2025 MR Brain WO and W contrast IV MRI BRAIN WO/W IVCON Radiology Routine Disorder of central nervous system, unspecified Vasculopathy 1 Occurrences starting 02/28/2024 until 03/28/2025 [facility] Work Phone: Comment on above: 1 Occurrences starting 02/28/2024 until 03/28/2025 End: 04-29-2023 NITRIC OXIDE, EXHALED NITRIC OXIDE, EXHALED PFT Routine Moderate persistent asthma without complication 1 Occurrences starting 03/30/2022 until 04/29/2023 [facility] Work Phone: Comment on above: 1 Occurrences starting 03/30/2022 until 04/29/2023 End: 05-12-2023 NITRIC OXIDE, EXHALED NITRIC OXIDE, EXHALED PFT Routine Asthma, unspecified asthma severity, unspecified whether complicated, unspecified whether persistent 1 Occurrences starting 04/11/2022 until 05/12/2023 [facility] Work Phone: Comment on above: 1 Occurrences starting 04/11/2022 until 05/12/2023 Ova and parasites identified in Unspecified specimen by Light microscopy OVA + PARA MICROSCOPIC Microbiology Routine Loose stools Ordered: 05/30/2023 [facility] Work Phone: Comment on above: Ordered: 05/30/2023 PFIZER-BIONTECH COVID-19 VACCINE, AGE 12+ YR (LISA TOP) PFIZER-BIONTECH COVID-19 VACCINE, AGE 12+ YR (LISA TOP) Immunization/Injection Routine Encounter for immunization 1 Occurrences starting 02/28/2022 [facility] Work Phone: Comment on above: 1 Occurrences starting 02/28/2022 End: 01-29-2023 Radiologic exam chest 2 views XR CHEST 2V FRONTAL/LAT Radiology STAT Wheezing Viral illness Cough 1 Occurrences starting 12/30/2021 until 01/29/2023 [facility] Work Phone: Comment on above: 1 Occurrences starting 12/30/2021 until 01/29/2023 End: 05-11-2023 SPIROMETRY - BASELINE AND POST DILATOR SPIROMETRY - BASELINE AND POST DILATOR PFT Routine Asthma, unspecified asthma severity, unspecified whether complicated, unspecified whether persistent 1 Occurrences starting 04/11/2022 until 05/11/2023 [facility] Work Phone: Comment on above: 1 Occurrences starting 04/11/2022 until 05/11/2023 SPIROMETRY WITH DILA TOR IF OBSTRUCTED SPIROMETRY WITH DILATOR IF OBSTRUCTED PFT Routine Severe persistent asthma without complication 07/08/2024 2:02 PM EDT [facility] Work Phone: SURGICAL PATHOLOGY SURGICAL PATH OLOGY Lab Routine Atypical nevus 10/23/2024 11:14 AM EST [facility] Work Phone: Tissue Pathology bio psy report SURGICAL PATHOLOGY Lab Routine Irregular menstruation 01/23/2025 10:10 AM EDT [facility] End: 08-23-2025 US Breast - right limited US BREAST LTD RIGHT Radiology Routine Abnormal mammogram 1 Occurrences starting 07/24/2024 until 08/23/2025 [facility] Comment on above: 1 Occurrences starting 07/24/2024 until 08/23/2025 End: 02-01-2026 US Pelvis transvaginal US FEMALE PELVIS TRANSVAG Radiology Routine Irregular periods/menstrual cycles 1 Occurrences starting 01/02/2025 until 02/01/2026 [facility] Work Phone: Comment on above: 1 Occurrences starting 01/02/2025 until 02/01/2026 US Pelvis transvaginal US FEMALE PELVIS TRANSVAG Radiology Routine Irregular periods/menstrual cycles 01/06/2025 8:08 AM EDT [facility] Work Phone: US Thyroid gland US THYROID/PARA THYROID Radiology Routine Enlarged thyroid 07/25/2024 7:28 AM EDT [facility] Work Phone: [facility] MM ASC [facility] Immunizations Immunization Date Immunization Notes Care Provider Kia rios 02-17-2025 hepatitis B vaccine, adult dosage Nc Nurse Work Phone: [facility] 09-16-2024 hepatitis B vaccine, adult dosage Mi Nurse Work Phone: [facility] 08-18-2024 hepatitis B vaccine, adult dosage Nc Nurse Work Phone: [facility] 06-11-2024 influenza, seasonal, injectable Sam Hankins MD Work Phone: [facility] 06-16-2022 influenza, injectabl e, quadrivalent, contains preservative Rupal Storm TOWER ERECTOR HELPER.WAREHOUSE REPRESENTATIVE Work Phone: [facility] 06-16-2022 pneumococcal (PCV20) vaccine, 20 valent (PREVNAR 20) Rupal Storm TOWER ERECTOR HELPER.WAREHOUSE REPRESENTATIVE Work Phone: [facility] 06-16-2022 pneumococcal Conjugate, unspecified formulation Rupal Storm TOWER ERECTOR HELPER.WAREHOUSE REPRESENTATIVE Work Phone: [facility] Work Phone: 06-16-2022 influenza virus vaccine, unspecified formulation Diane Bazzi MD Work Phone: [facility] 02-28-2022 COVID-19 vaccine, booster dose (MODERNA) Respiratory Wstr Work Phone: [facility] Work Phone: 01-25-2021 COVID-19 vaccine, fu ll dose (MODERNA) Barby Daugherty TOWER ERECTOR HELPER.WAREHOUSE REPRESENTATIVE Work Phone: [facility] Work Phone: 12-28-2020 COVID-19 vaccine, fu ll dose (MODERNA) Barby Daugherty TOWER ERECTOR HELPER.WAREHOUSE REPRESENTATIVE Work Phone: [facility] Work Phone: 07-28-2020 influenza, injectabl e, quadrivalent, contains preservative Barby Barajask TOWER ERECTOR HELPER.WAREHOUSE REPRESENTATIVE Work Phone: [facility] 2018 tetanus toxoid, reduced diphtheria toxoid, and acellular pertussis vaccine, adsorbed Barby Wilolw TOWER ERECTOR HELPER.WAREHOUSE REPRESENTATIVE Work Phone: [facility] 06-15-1989 diphtheria, tetanus toxoids and pertussis vaccine Barby Willow TOWER ERECTOR HELPER.WAREHOUSE REPRESENTATIVE Work Phone: [facility] 12-01-1988 diphtheria, tetanus toxoids and pertussis vaccine Barby Willow TOWER ERECTOR HELPER.WAREHOUSE REPRESENTATIVE Work Phone: [facility] 12-01-1988 poliovirus vaccine, unspecified formulation Barby Willow TOWER ERECTOR HELPER.WAREHOUSE REPRESENTATIVE Work Phone: [facility] 02-10-1985 measles, mumps and rubella virus vaccine Barby Willow TOWER ERECTOR HELPER.WAREHOUSE REPRESENTATIVE Work Phone: [facility] 05-07-1984 diphtheria, tetanus toxoids and pertussis vaccine Barby Willow TOWER ERECTOR HELPER.WAREHOUSE REPRESENTATIVE Work Phone: [facility] 05-07-1984 poliovirus vaccine, unspecified formulation Barby Willow TOWER ERECTOR HELPER.WAREHOUSE REPRESENTATIVE Work Phone: [facility] 03-12-1984 diphtheria, tetanus toxoids and pertussis vaccine Barby Willow TOWER ERECTOR HELPER.WAREHOUSE REPRESENTATIVE Work Phone: [facility] 03-12-1984 poliovirus vaccine, unspecified formulation Barby Willow TOWER ERECTOR HELPER.WAREHOUSE REPRESENTATIVE Work Phone: [facility] Payers Date Payer Category Payer Self-pay [id number] 2025 Private Health Insurance [id number] 2024 Private Health Insurance [id number] 2024 Private Health Insurance [id number] 2022 Unknown [id number] 2017 Unknown MMO MMO [employer] [id number] 2017-Present [phone] [address] [address] [place] [address] Indemnity [id number] 2017 Unknown [id number] Unknown [facility] [id number] Unknown [facility] [id number] 2061 [id number] Unknown [id number] Unknown [id number] Social History Date Type Detail Facility Start: 05-30-2022 End: 05-15-2023 Tobacco smoking status NHIS Never smoked tobacco [facility] Work Phone: Start: 12-30-2021 End: 01-23-2025 Alcohol intake Ex-drinker (finding) [facility] Start: 07-28-2020 End: 04-04-2021 History SDOH Alcohol Frequency 1 [facility] Start: 07-28-2020 History SDOH Alcohol Std Drinks 98 [facility] Start: 08-08-2019 End: 07-25-2020 History SDOH Social Connections Phone 5 [facility] Start: 07-25-2020 End: 08-08-2021 History SDOH Social Connections Get Together 2 [facility] Start: 08-08-2019 History SDOH Social Connections Baptism 3 [facility] Start: 08-08-2019 Education 12 [facility] Start: 1985 Sex Assigned At Not on file [facility] Start: 07-14-2021 End: 06-14-2022 Exposure to SARS-CoV-2 (event) Not sure [facility] Start: 05-30-2022 End: 05-15-2023 Tobacco use and exposure Smokeless tobacco non-user [facility] Start: 02-09-2023 End: 04-13-2023 History of Social function [facility] Work Phone: Start: 02-09-2023 End: 04-13-2023 Tobacco use panel [facility] Work Phone: Adult Depression Screening Assessment 0 [facility] Work Phone: Start: 01-08-2019 Gender identity Identifies as female gender (finding) [facility] Work Phone: Start: 01-08-2019 Sexual orientation Heterosexual (fin ding) [facility] Work Phone: Do you belong to any clubs or organizations such as anabaptism groups, unions, fraternal or athletic groups, or school groups? Yes [facility] Are you now , , , , never or living with a partner? [facility] How often to you hav e a drink containing alcohol? Never [facility] Do you feel stress - tense, restless, nervous, or anxious, or unable to sleep at night because your mind is troubled all the time - these days [OSQ] Not at all [facility] (I/We) worried wheth er (my/our) food would run out before (I/we) got money to buy more. Never true [facility] In the past 12 month s, was there a time when you were not able to pay the mortgage or rent on time? No [facility] Start: 1985 Sex Assigned At Female W [facility] NEGATED: Highlighted rowStart: NINF History of tobacco use Passive smoker [facility] Medical Equipment Procedure Code Equipment Code Equipment Origin al Text Equipment Identifier Dates [employer] Hip [place] [place] 1.8mm [id number] Start: 11-01-2023 [employer]ert[employer] Hip [place] [place] 1.8mm [id number] Start: 11-01-2023 [employer] Hip [place] [place] 1.8mm [id number] Start: 11-01-2023 [employer]ert[employer] Hip [place] [place] 1.8mm [id number] Start: 12-13-2023 [employer] Hip [place] [place] 1.8mm [id number] Start: 12-13-2023 [employer] Hip [place] [place] 1.8mm [id number] Start: 12-13-2023 Clinical Notes 07-19-2010 to 02-20-2025 Telephone Encounter - Lucretia Galalrdo RN - 02/20/2025 11:47 AM EDTTelephone Encounter - Lucretia Gallardo RN - 02/20/2025 11:47 AM EDTTelephone Encounter - Curtis Brooks RN - 02/20/2025 10:35 AM EDT Note Date & Type Note Facility 02-20-2025 Telephone encounter Note Attempted to call patient, but phone was staticky and then call dropped. [employer] message sent. Lucretia Gallardo RN [facility] 02-20-2025 Miscellaneous Notes Attempted to call patient, but phone was staticky and then call dropped. [employer] message sent. Lucretia Gallardo RN Not today- I ordered it pre op with hospital. Patient called in and states she was told by Dr Kennedy that she would have blood work today. None ordered. Please advise. documented in this encounter [facility] 02-20-2025 Telephone encounter Note Not today- I ordered it pre op with hospital. [facility] Work Phone: 02-20-2025 Telephone encounter Note Patient called in and states she was told by Dr Kennedy that she would have blood work today. None ordered. Please advise. [facility] 02-20-2025 History and physical note Pre-Op History and Physical HPI: The patient is a 39 year old female presenting for pre-operative visit. She is scheduled for TLH, bilateral salpingectomy, cysto, for pelvic pain, AUB, adenomyosis, fibroid uterus, endometrial polyp. on 03/06/25. Procedure discussed along with risks, benefits and complications. Other alternatives discussed for management. Consent form signed? Yes. PAST MEDICAL HISTORY Diagnosis Date Acetabular labrum tear, left, initial encounter 09/14/2023 Acetabular labrum tear, unspecified laterality, subsequent encounter 09/14/2023 Asthma (HCC) Constipation Diarrhea Dyspnea on exertion History of echocardiogram 05/13/2021 EF 60-65% RV systolic pressure 25mmHg R atrial pressure 3mmHg History of stress test 05/13/2021 no ischemic electrocardiogrpahic changes noted pt developed chest pressure ehich resolved in recovery phase average exercise capacity for age baseline htn with a normal BP response to exercise Tear of right acetabular labrum 12/14/2023 PAST SURGICAL HISTORY Procedure Laterality Date ABDOMINAL SURGERY HX APPENDECTOMY CHOLECYSTECTOMY 09/24/2002 Cholecystectomy COLONOSCOPY 07/23/2023 EGD 07/23/2023 LAPS ABD PRTM&OMENTUM DX W/WO SPEC BR/WA SPX 11/22/2008 Laparoscopy and D&C OPEN HIP LABRAL REPAIR (COMP 74251) Left 12/13/2023 OPEN HIP LABRAL REPAIR (COMP 66220) Right 11/01/2023 Current Outpatient Medications Medication Sig Dispense Refill tezepelumab-ekko (TEZSPIRE) 210 mg/1.91 mL (110 mg/mL) pen injector Inject 210 mg subcutaneously every 4 weeks. 1.91 mL 11 albuterol (PROVENTIL) 2.5 mg /3 mL (0.083 %) nebulizer solution Use 3 mL via nebulizer every 4 hours as needed for wheezing/shortness of breath. 360 mL 2 albuterol HFA (PROVENTIL HFA, VENTOLIN HFA) 90 mcg/actuation inhaler Inhale 2 Puffs as instructed every 4 hours as needed for wheezing/shortness of breath. 1 Each 5 biotin 5 mg tab Take 5 mg by mouth once daily. B.animalis,bifid,infantis,long (PROBIOTIC 4X ORAL) Take by mouth. fluticasone-salmeterol HFA (ADVAIR HFA) 230-21 mcg/actuation inhaler Inhale 2 Puffs as instructed two times a day. 36 g 3 fluticasone (FLONASE) 50 mcg/actuation nasal spray Use 2 Sprays in each nostril once daily. 3 Each 3 montelukast (SINGULAIR) 10 mg tablet TAKE 1 TABLET BY MOUTH DAILY AT BEDTIME 90 tablet 3 azelastine 0.1% nasal spray Use 2 Sprays in each nostril two times a day as needed. 90 mL 2 ondansetron orally disintegrating (ZOFRAN ODT) 4 mg disintegrating tablet Take 1 tablet by mouth every 8 hours as needed for nausea/vomiting. 9 tablet 0 PREDNISONE ORAL Take by mouth as needed. Burst fexofenadine (GM) 180 mg tablet Take 180 mg by mouth once daily as needed. cetirizine (ZYRTEC) 10 mg tablet Take 10 mg by mouth once daily. methocarbamol (ROBAXIN) 500 mg tablet Take 1-2 tablets at bedtime as needed for pain or muscle spasms 20 tablet 0 No current facility-administered medications for this visit. ALLERGIES: Clindamycin and Septra [Sulfamethoxazole-Trimethoprim] PERSONAL HISTORY: Social History Tobacco Use Smoking status: Never Passive exposure: Never Smokeless tobacco: Never Vaping Use Vaping status: Never Used Substance Use Topics Alcohol use: Not Currently Drug use: Not Currently Types: Marijuana FAMILY HISTORY: FAMILY HISTORY Problem Relation Age of Onset other (cerical cancer) Mother Asthma Sister Heart Maternal Grandmother REVIEW OF SYMPTOMS: negative except as noted above PHYSICAL EXAMINATION: VITALS: Blood pressure 116/72, pulse 65, resp. rate 16, height 163.8 cm (5' 4.5), weight 88 kg (194 lb), last menstrual period 02/19/2025, SpO2 100%. GENERAL: The patient is well nourished, well hydrated in no acute distress. , The patient is oriented to time, place, and person. NECK: full range of motion LUNGS: Clear to auscultation bilaterally. no wheezes, rhonchi or rales HEART: Regular rate and rhythm, Normal heart sounds, and No murmurs or gallops IMPRESSION: 39 yo with AUB, adneomyosis, pelvic pain , fibroid uterus, endometrial polyp PLAN: TLH, bilateral salpingectomy, Cysto Pt has been counseled on risks/benefits and alternatives of surgery including but not limited to anesthesia, bleeding, infection, injury to pelvic structures including bowel, bladder, ureters and vessels. Pt wishes to proceed with surgery at this time. Pre and post op instructions reviewed- declines narcotics after surgery I have reviewed and updated past medical and surgical history, medications and allergies Al Kennedy MD [facility] Work Phone: 02-20-2025 History and physical note Pre-Op History and Physical HPI: The patient is a 39 year old female presenting for pre-operative visit. She is scheduled for TLH, bilateral salpingectomy, cysto, for pelvic pain, AUB, adenomyosis, fibroid uterus, endometrial polyp. on 03/06/25. Procedure discussed along with risks, benefits and complications. Other alternatives discussed for management. Consent form signed? Yes. PAST MEDICAL HISTORY Diagnosis Date Acetabular labrum tear, left, initial encounter 09/14/2023 Acetabular labrum tear, unspecified laterality, subsequent encounter 09/14/2023 Asthma (HCC) Constipation Diarrhea Dyspnea on exertion History of echocardiogram 05/13/2021 EF 60-65% RV systolic pressure 25mmHg R atrial pressure 3mmHg History of stress test 05/13/2021 no ischemic electrocardiogrpahic changes noted pt developed chest pressure ehich resolved in recovery phase average exercise capacity for age baseline htn with a normal BP response to exercise Tear of right acetabular labrum 12/14/2023 PAST SURGICAL HISTORY Procedure Laterality Date ABDOMINAL SURGERY HX APPENDECTOMY CHOLECYSTECTOMY 09/24/2002 Cholecystectomy COLONOSCOPY 07/23/2023 EGD 07/23/2023 LAPS ABD PRTM&OMENTUM DX W/WO SPEC BR/WA SPX 11/22/2008 Laparoscopy and D&C OPEN HIP LABRAL REPAIR (COMP 91521) Left 12/13/2023 OPEN HIP LABRAL REPAIR (COMP 25915) Right 11/01/2023 Current Outpatient Medications Medication Sig Dispense Refill tezepelumab-ekko (TEZSPIRE) 210 mg/1.91 mL (110 mg/mL) pen injector Inject 210 mg subcutaneously every 4 weeks. 1.91 mL 11 albuterol (PROVENTIL) 2.5 mg /3 mL (0.083 %) nebulizer solution Use 3 mL via nebulizer every 4 hours as needed for wheezing/shortness of breath. 360 mL 2 albuterol HFA (PROVENTIL HFA, VENTOLIN HFA) 90 mcg/actuation inhaler Inhale 2 Puffs as instructed every 4 hours as needed for wheezing/shortness of breath. 1 Each 5 biotin 5 mg tab Take 5 mg by mouth once daily. B.animalis,bifid,infantis,long (PROBIOTIC 4X ORAL) Take by mouth. fluticasone-salmeterol HFA (ADVAIR HFA) 230-21 mcg/actuation inhaler Inhale 2 Puffs as instructed two times a day. 36 g 3 fluticasone (FLONASE) 50 mcg/actuation nasal spray Use 2 Sprays in each nostril once daily. 3 Each 3 montelukast (SINGULAIR) 10 mg tablet TAKE 1 TABLET BY MOUTH DAILY AT BEDTIME 90 tablet 3 azelastine 0.1% nasal spray Use 2 Sprays in each nostril two times a day as needed. 90 mL 2 ondansetron orally disintegrating (ZOFRAN ODT) 4 mg disintegrating tablet Take 1 tablet by mouth every 8 hours as needed for nausea/vomiting. 9 tablet 0 PREDNISONE ORAL Take by mouth as needed. Burst fexofenadine (GM) 180 mg tablet Take 180 mg by mouth once daily as needed. cetirizine (ZYRTEC) 10 mg tablet Take 10 mg by mouth once daily. methocarbamol (ROBAXIN) 500 mg tablet Take 1-2 tablets at bedtime as needed for pain or muscle spasms 20 tablet 0 No current facility-administered medications for this visit. ALLERGIES: Clindamycin and Septra [Sulfamethoxazole-Trimethoprim] PERSONAL HISTORY: Social History Tobacco Use Smoking status: Never Passive exposure: Never Smokeless tobacco: Never Vaping Use Vaping status: Never Used Substance Use Topics Alcohol use: Not Currently Drug use: Not Currently Types: Marijuana FAMILY HISTORY: FAMILY HISTORY Problem Relation Age of Onset other (cerical cancer) Mother Asthma Sister Heart Maternal Grandmother REVIEW OF SYMPTOMS: negative except as noted above PHYSICAL EXAMINATION: VITALS: Blood pressure 116/72, pulse 65, resp. rate 16, height 163.8 cm (5' 4.5), weight 88 kg (194 lb), last menstrual period 02/19/2025, SpO2 100%. GENERAL: The patient is well nourished, well hydrated in no acute distress. , The patient is oriented to time, place, and person. NECK: full range of motion LUNGS: Clear to auscultation bilaterally. no wheezes, rhonchi or rales HEART: Regular rate and rhythm, Normal heart sounds, and No murmurs or gallops IMPRESSION: 39 yo with AUB, adneomyosis, pelvic pain , fibroid uterus, endometrial polyp PLAN: TLH, bilateral salpingectomy, Cysto Pt has been counseled on risks/benefits and alternatives of surgery including but not limited to anesthesia, bleeding, infection, injury to pelvic structures including bowel, bladder, ureters and vessels. Pt wishes to proceed with surgery at this time. Pre and post op instructions reviewed- declines narcotics after surgery I have reviewed and updated past medical and surgical history, medications and allergies Al Kennedy MD documented in this encounter [facility] 02-17-2025 Note HNO ID: [id number] Author: ?, ?, ? Service: ? Author Type: LICENSED NURSE Type: Progress Notes Filed: 02/17/2025 15:40 Note Text: Patient presents for Hepatitis B vaccine. Denies any problems at this time. Tolerated injection well. Jossie Galvez LPN [facility] 02-17-2025 History of Present illness Narrative Patient presents for Hepatitis B vaccine. Denies any problems at this time. Tolerated injection well. Jossie Galvez LPN documented in this encounter [facility] 01-29-2025 Instructions Al Kaba MD - 01/29/2025 3:21 PM EDT You have decided to proceed with a total laparoscopic hysterectomy. This procedure will remove your uterus, cervix, and fallopian tubes while leaving your ovaries intact. You declined hormone or control options, so we will manage your adenomyosis and bleeding with surgery. Your surgery is planned as a day procedure; you should be able to go home a few hours after surgery unless complications arise. After surgery, avoid strenuous activities including heavy lifting, sexual activity, using tampons, douching, and using bathtubs or hot tubs until you are cleared (typically at your 6?week check-up). 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 A pre-op visit will be scheduled to review the surgery details and complete the consent process. Our staff will call you once your surgery date is confirmed. If you have questions before your next appointment, please contact our office. documented in this encounter [facility] 01-29-2025 Note HNO ID: [id number] Author: AL KABA MD Service: ? Author Type: Physician Type: Progress Notes Filed: 01/29/2025 15:22 Note Text: Sap Senior Developer: declined Subjective The patient is a 39-year-old female with a history of adenomyosis and fibroids presenting for evaluation of pelvic pain and abnormal uterine bleeding. Pelvic Pain and Abnormal Uterine Bleeding - Reports experiencing pain and bleeding outside of her menstrual periods, which became particularly severe in October, occurring every other week. - Underwent an ultrasound, which suggested adenomyosis and revealed a couple of small fibroids, one of which is possibly impinging on the uterine lining. - Endometrial biopsy was performed, results were normal. - Has not tried any hormonal treatments and expresses a preference against hormonal interventions, stating, I'm not a control girl. - Has two children and is not planning to have more; her partner has undergone a vasectomy. - Has not had any abnormal Pap smears. - Reports dyspareunia, suspecting it may be related to polyps. Urinary Symptoms - Reports suboptimal bladder function, wondering if it could be related to uterine pressure on the bladder. - Notes that changing positions sometimes improves urinary flow. Surgical History - Two vaginal deliveries. - Cholecystectomy. - Laparoscopy and DANDC in 2008, during which varicose veins of the uterus were noted. - No history of pelvic infections such as gonorrhea or chlamydia. - No significant adhesions reported during previous surgeries. Infertility History - History of suspected endometriosis and infertility prior to having children- no comment on endometriosis or adhesions on subsequent - Underwent hysterosalpingography, which showed tubal blockage. - Conceived naturally just before scheduled in vitro fertilization (IVF) consultation. Genitourinary: (+) abnormal uterine bleeding, (+) pelvic pain, (+) dyspareunia, (+) urinary changes Objective Blood pressure 132/80, weight 88 kg (194 lb), last menstrual period 01/23/2025. General: No acute distress. : Uterus mobile, limited vaginal space, uterine tenderness on bimanual exam. Imaging: - Pelvic Ultrasound: Multiple fibroids, including one impinging on the uterine cavity. Findings suggest adenomyosis. - Hysterosalpingogram: No tubal patency observed. Tests: - Endometrial Biopsy: Negative for malignancy; possible polypoid tissue noted. - (2008) Laparoscopy and DANDC: - Varicose uterine veins identified - No endometriosis found 1. Menorrhagia with irregular cycle (N92.1) 2. Pelvic pain in female (R10.2) 3. Adenomyosis (N80.03) 4. Polyp of corpus uteri (N84.0) 5. Intramural and submucous leiomyoma of uterus (D25.1) - Ultrasound revealed small fibroids, one potentially impacting the endometrial lining, and endometrial biopsy indicated polypoid tissue. - Discussed conservative management options including hysteroscopy, DANDC, and myomectomy to resect fibroids and polyps, with potential placement of a Mirena IUD or hormonal therapy post-procedure. - Educated on adenomyosis, explaining that it involves endometrial tissue implanting into the myometrium, which may continue to cause menorrhagia and pelvic pain even after conservative treatments. - Advised against endometrial ablation due to high failure rates in adenomyosis patients not near menopause. - Patient has not tried hormonal therapies and prefers to avoid them. - Discussed total laparoscopic hysterectomy, including removal of the uterus, cervix, and fallopian tubes while preserving the ovaries to maintain hormonal balance. - Explained surgical risks: infection, bleeding, injury to pelvic structures (bladder, bowel, vessels, ureters) with less than 1% incidence. - Informed about postoperative recovery: 2-6 weeks depending on activity level, with restrictions on lifting, sexual activity, and use of tampons or douching until cleared at 6 weeks. - Patient understands and agrees with the plan for hysterectomy; scheduling to be arranged with potential dates in February or March. - Preoperative visit to be scheduled to discuss surgical details and obtain consent. Attestation Recording using ambient AI software for draft documentation of the visit was discussed with the patient/authorized medical representative; all questions welcomed and answered. Patient/authorized medical representative agreed to proceed Medical Decision Making: Problems: Moderate: New problem with uncertain prognosis Risk: High: Decision on elective major surgery w/ risk factors Medical Decision Making Level: 4 - Moderate Al Chacko MD [facility] 01-29-2025 History of Present illness Narrative Sap Senior Developer: declined Subjective The patient is a 39-year-old female with a history of adenomyosis and fibroids presenting for evaluation of pelvic pain and abnormal uterine bleeding. Pelvic Pain and Abnormal Uterine Bleeding - Reports experiencing pain and bleeding outside of her menstrual periods, which became particularly severe in October, occurring every other week. - Underwent an ultrasound, which suggested adenomyosis and revealed a couple of small fibroids, one of which is possibly impinging on the uterine lining. - Endometrial biopsy was performed, results were normal. - Has not tried any hormonal treatments and expresses a preference against hormonal interventions, stating, I'm not a control girl. - Has two children and is not planning to have more; her partner has undergone a vasectomy. - Has not had any abnormal Pap smears. - Reports dyspareunia, suspecting it may be related to polyps. Urinary Symptoms - Reports suboptimal bladder function, wondering if it could be related to uterine pressure on the bladder. - Notes that changing positions sometimes improves urinary flow. Surgical History - Two vaginal deliveries. - Cholecystectomy. - Laparoscopy and D&C in 2008, during which varicose veins of the uterus were noted. - No history of pelvic infections such as gonorrhea or chlamydia. - No significant adhesions reported during previous surgeries. Infertility History - History of suspected endometriosis and infertility prior to having children- no comment on endometriosis or adhesions on subsequent - Underwent hysterosalpingography, which showed tubal blockage. - Conceived naturally just before scheduled in vitro fertilization (IVF) consultation. Genitourinary: (+) abnormal uterine bleeding, (+) pelvic pain, (+) dyspareunia, (+) urinary changes Objective Blood pressure 132/80, weight 88 kg (194 lb), last menstrual period 01/23/2025. General: No acute distress. : Uterus mobile, limited vaginal space, uterine tenderness on bimanual exam. Imaging: - Pelvic Ultrasound: Multiple fibroids, including one impinging on the uterine cavity. Findings suggest adenomyosis. - Hysterosalpingogram: No tubal patency observed. Tests: - Endometrial Biopsy: Negative for malignancy; possible polypoid tissue noted. - (2008) Laparoscopy and D&C: - Varicose uterine veins identified - No endometriosis found 1. Menorrhagia with irregular cycle (N92.1) 2. Pelvic pain in female (R10.2) 3. Adenomyosis (N80.03) 4. Polyp of corpus uteri (N84.0) 5. Intramural and submucous leiomyoma of uterus (D25.1) - Ultrasound revealed small fibroids, one potentially impacting the endometrial lining, and endometrial biopsy indicated polypoid tissue. - Discussed conservative management options including hysteroscopy, D&C, and myomectomy to resect fibroids and polyps, with potential placement of a Mirena IUD or hormonal therapy post-procedure. - Educated on adenomyosis, explaining that it involves endometrial tissue implanting into the myometrium, which may continue to cause menorrhagia and pelvic pain even after conservative treatments. - Advised against endometrial ablation due to high failure rates in adenomyosis patients not near menopause. - Patient has not tried hormonal therapies and prefers to avoid them. - Discussed total laparoscopic hysterectomy, including removal of the uterus, cervix, and fallopian tubes while preserving the ovaries to maintain hormonal balance. - Explained surgical risks: infection, bleeding, injury to pelvic structures (bladder, bowel, vessels, ureters) with less than 1% incidence. - Informed about postoperative recovery: 2-6 weeks depending on activity level, with restrictions on lifting, sexual activity, and use of tampons or douching until cleared at 6 weeks. - Patient understands and agrees with the plan for hysterectomy; scheduling to be arranged with potential dates in February or March. - Preoperative visit to be scheduled to discuss surgical details and obtain consent. Attestation Recording using Coupmon software for draft documentation of the visit was discussed with the patient/authorized medical representative; all questions welcomed and answered. Patient/authorized medical representative agreed to proceed Medical Decision Making: Problems: Moderate: New problem with uncertain prognosis Risk: High: Decision on elective major surgery w/ risk factors Medical Decision Making Level: 4 - Moderate Al Chacko MD documented in this encounter [facility] 01-23-2025 Note HNO ID: [id number] Author: LELIA NOVAK APRN.CNM Service: ? Author Type: Information Services Assistant Type: Progress Notes Filed: 01/23/2025 11:02 Note Text: Bessie is a 39 year old Female who presents today for an endometrial biopsy for irregular, heavy, periods and AUB test: negative UNIVERSAL PROTOCOL / SAFETY CHECKLIST Procedure to be Performed: Endometrial Biopsy Sign In: A Moment of CARE was completed. Appropriate PPE (Personal Protective Equipment) worn by all providers involved with the procedure. Special equipment not required. Patient/Surrogate Stated/Verified: Patient name, Date of , Relevant allergies, and The intended procedure Time Out: Relevant labs, photos, and/or imaging studies have been reviewed. Intended patient and procedure match the source document(s) (e.g. consent, HANDP, associated studies [imaging, pathology]) are not applicable. Consent obtained and matches the intended procedure. Yes. Correct side/site is not applicable. Medications required for this procedure are verified. Fire risk assessed and is not applicable. Implants: are not applicable. Sign Out: Specimens are all correctly labeled and sent. All instruments, equipment, possible retained foreign bodies are accounted for. Yes. The post-procedure plan of care has been communicated to the patient or surrogate. PROCEDURE: EXTERNAL GENITALIA: Normal in appearance without lesions VAGINA: large cervical polyps visualized BIOPSY: Speculum placed into the vagina with excellent visualization of the cervix. Cervix cleaned with betadine. Anterior lip of cervix grasped with single toothed tenaculum. Uterus sounded to 9 cm. Pipelle inserted into the uterus without difficulty and endometrial biopsy obtained. Specimen labeled and sent to pathology. Hemostasis achieved. Procedure Summary: Patient tolerated procedure well. ASSESSMENT: heavy and irregular menses PLAN: Specimens labeled and sent to Pathology. Will notify patient of results in 1-2 weeks. Post-procedure instructions reviewed and written material given to the patient. - Reviewed results of pelvic US again with patient. Patient aware of uterine fibroid and adenomyosis diagnosis. May be interested in partial hysterectomy. - Will follow up after results return Lelia Novak APRN.CNM [facility] 01-23-2025 History of Present illness Narrative Bessie is a 39 year old Female who presents today for an endometrial biopsy for irregular, heavy, periods and AUB test: negative UNIVERSAL PROTOCOL / SAFETY CHECKLIST Procedure to be Performed: Endometrial Biopsy Sign In: A Moment of CARE was completed. Appropriate PPE (Personal Protective Equipment) worn by all providers involved with the procedure. Special equipment not required. Patient/Surrogate Stated/Verified: Patient name, Date of , Relevant allergies, and The intended procedure Time Out: Relevant labs, photos, and/or imaging studies have been reviewed. Intended patient and procedure match the source document(s) (e.g. consent, H&P, associated studies [imaging, pathology]) are not applicable. Consent obtained and matches the intended procedure. Yes. Correct side/site is not applicable. Medications required for this procedure are verified. Fire risk assessed and is not applicable. Implants: are not applicable. Sign Out: Specimens are all correctly labeled and sent. All instruments, equipment, possible retained foreign bodies are accounted for. Yes. The post-procedure plan of care has been communicated to the patient or surrogate. PROCEDURE: EXTERNAL GENITALIA: Normal in appearance without lesions VAGINA: large cervical polyps visualized BIOPSY: Speculum placed into the vagina with excellent visualization of the cervix. Cervix cleaned with betadine. Anterior lip of cervix grasped with single toothed tenaculum. Uterus sounded to 9 cm. Pipelle inserted into the uterus without difficulty and endometrial biopsy obtained. Specimen labeled and sent to pathology. Hemostasis achieved. Procedure Summary: Patient tolerated procedure well. ASSESSMENT: heavy and irregular menses PLAN: Specimens labeled and sent to Pathology. Will notify patient of results in 1-2 weeks. Post-procedure instructions reviewed and written material given to the patient. - Reviewed results of pelvic US again with patient. Patient aware of uterine fibroid and adenomyosis diagnosis. May be interested in partial hysterectomy. - Will follow up after results return Lelia Novak APRN.CNM documented in this encounter [facility] 01-23-2025 Instructions Rayray Carnes MA - 01/23/2025 9:26 AM EDT YOUR RECOVERY After your biopsy you may have: Vaginal bleeding (less than a normal menstrual period) Mild cramping Do NOT put anything in the vagina for 1 week after your endometrial biopsy. This includes: tampons douches and refraining from having sexual intercourse If you have any discomfort, you may take an over the counter pain medication (motrin, advil, ibuprofen, tylenol, etc). If this does not relieve your discomfort, contact the office. It is okay to wear a sanitary pad until the discharge and spotting stops. RISKS Although problems seldom occur with endometrial biopsies, there can be some complications. You may feel faint during and shortly after the procedure as well as have some bleeding after the procedure. There is also a risk of infection after the procedure. These complications are rare and can be easily treated. You should contact you doctor is you have any of the following: Heavy bleeding (more than your normal period) Bleeding with clots Severe abdominal pain Fever (more than 100.4F) Foul smelling vaginal discharge RESULTS We will have the results of your biopsy in 1-2 weeks. If you do not hear the results of your biopsy after 2 weeks, please contact the office for the results. If you have any additional questions or concerns please do not hesitate to contact the office. documented in this encounter [facility] 01-08-2025 Telephone encounter Note Patient called and EMB scheduled. Patient will call back to schedule 6 month repeat ultrasound. Melony Campbell RN [facility] 01-08-2025 Miscellaneous Notes Patient called and EMB scheduled. Patient will call back to schedule 6 month repeat ultrasound. Melony Campbell RN I would also recommend that patient schedule for EMB in office in the future. Order placed. Lelia Novak APRN.CNM documented in this encounter [facility] 01-08-2025 Telephone encounter Note I would also recommend that patient schedule for EMB in office in the future. Order placed. Lelia Novak APRN.CNM [facility] 01-06-2025 History of Present illness Narrative Images from the original note were not included. Pulmonary Medicine Patients name: Bessie Solomon PCP: Diane Bazzi MD CC: follow-up Asthma HPI: Bessie Solomon is a 39 year old female non-smoker with PMH significant for severe asthma. Previously intolerant of LAMA with severe LE cramping. Current therapy consists of Advair, Albuterol and Tezspire. Also uses Singulair, Zyrtec and Nasal spray. MONIKA 06/2024 with stable symptoms. PFT and nitric oxide normal. She was seen in [facility] on 09/29 with cough, fever and runny nose and tested positive for RSV. Treated with Prednisone. Symptoms lasted for a month before resolving. Otherwise, she has done well since her last visit.Today, patient reports occasional cough with yellow sputum. No hemoptysis. Denies wheezing, chest tightness, or dyspnea with exertion or at rest. Denies any current fevers, chills, or night sweats. No recent hospitalizations or ED visits or upper respiratory infections. Has not used Albuterol since she was sick in September. PAST MEDICAL HISTORY Diagnosis Date Acetabular labrum tear, left, initial encounter 09/14/2023 Acetabular labrum tear, unspecified laterality, subsequent encounter 09/14/2023 Asthma (HCC) Constipation Diarrhea Dyspnea on exertion History of echocardiogram 05/13/2021 EF 60-65% RV systolic pressure 25mmHg R atrial pressure 3mmHg History of stress test 05/13/2021 no ischemic electrocardiogrpahic changes noted pt developed chest pressure ehich resolved in recovery phase average exercise capacity for age baseline htn with a normal BP response to exercise Tear of right acetabular labrum 12/14/2023 Allergies: Clindamycin Rash, GI Upset Septra [Sulfamethox* Rash, GI Upset Medication List Accurate as of January 06, 2025 12:58 PM. If you have any questions, ask your nurse or doctor. CONTINUE taking these medications * albuterol HFA 90 mcg/actuation inhaler Commonly known as: VENTOLIN HFA Inhale 2 Puffs as instructed every 4 hours as needed for wheezing/shortness of breath (and before sexertion / exercise). * albuterol 2.5 mg /3 mL (0.083 %) nebulizer solution Commonly known as: PROVENTIL Use 3 mL via nebulizer every 4 hours as needed for wheezing/shortness of breath. * albuterol HFA 90 mcg/actuation inhaler Commonly known as: PROVENTIL HFA, VENTOLIN HFA Inhale 2 Puffs as instructed every 4 hours as needed for wheezing/shortness of breath. azelastine 0.1% nasal spray Use 2 Sprays in each nostril two times a day as needed. biotin 5 mg Tab cetirizine 10 mg tablet Commonly known as: ZYRTEC fexofenadine 180 mg tablet Commonly known as: GM fluticasone 50 mcg/actuation nasal spray Commonly known as: FLONASE Use 2 Sprays in each nostril once daily. fluticasone-salmeterol HFA 230-21 mcg/actuation inhaler Commonly known as: ADVAIR HFA Inhale 2 Puffs as instructed two times a day. methocarbamol 500 mg tablet Commonly known as: ROBAXIN Take 1-2 tablets at bedtime as needed for pain or muscle spasms montelukast 10 mg tablet Commonly known as: SINGULAIR TAKE 1 TABLET BY MOUTH DAILY AT BEDTIME ondansetron orally disintegrating 4 mg disintegrating tablet Commonly known as: ZOFRAN ODT Take 1 tablet by mouth every 8 hours as needed for nausea/vomiting. PREDNISONE ORAL PROBIOTIC 4X ORAL TEZSPIRE 210 mg/1.91 mL (110 mg/mL) pen injector Generic drug: tezepelumab-ekko Inject 210 mg subcutaneously every 4 weeks. * This list has 3 medication(s) that are the same as other medications prescribed for you. Read the directions carefully, and ask your doctor or other care provider to review them with you. DATA: I personally reviewed and analyzed all labs, radiographs and available pulmonary function testing PFT: 06/2024 Spirometry is normal. CXR: Last XR Chest - Impression Only XR CHEST 2V FRONTAL/LAT Exam End: 09/29/2024 7:10 PM (Final result) Impression: IMPRESSION: No acute radiographic abnormality. ... IMMUNIZATIONS Prevnar - xx Pneumovax 23 - xx Influenza - 05/2024 COVID-19 - xx RSV- xx Review of Systems Constitutional: Negative for activity change, appetite change, fatigue and unexpected weight change. HENT: Positive for congestion (chronic). Negative for mouth sores, postnasal drip and sinus pain. Respiratory: Positive for cough. Negative for chest tightness, shortness of breath and wheezing. Cardiovascular: Negative for chest pain, palpitations and leg swelling. Allergic/Immunologic: Negative for environmental allergies. Neurological: Negative for dizziness, weakness and light-headedness. Pulse 60 Resp 17 Wt 90.3 kg (199 lb) LMP 12/24/2024 (Exact Date) SpO2 100% BMI 33.12 kg/m Physical Exam Vitals reviewed. Constitutional: General: She is not in acute distress. Appearance: Normal appearance. She is not ill-appearing. HENT: Head: Normocephalic. Nose: No rhinorrhea. Mouth/Throat: Mouth: Mucous membranes are moist. Pharynx: No oropharyngeal exudate. Cardiovascular: Rate and Rhythm: Normal rate and regular rhythm. Heart sounds: Normal heart sounds. Pulmonary: Effort: Pulmonary effort is normal. No respiratory distress. Breath sounds: No wheezing or rhonchi. Musculoskeletal: Right lower leg: No edema. Left lower leg: No edema. Lymphadenopathy: Cervical: No cervical adenopathy. Skin: General: Skin is warm and dry. Capillary Refill: Capillary refill takes less than 2 seconds. Neurological: General: No focal deficit present. Mental Status: She is alert. ASSESSMENT/PLAN: 1. Severe persistent asthma without complication (HCC) - ICD9: 493.90, ICD10: J45.50 (primary diagnosis) - symptoms controlled - continue Advair and PRN Albuterol - continue Tezspire per Dr. Hankins - Albuterol neb/HFA as needed - Avoidance of triggers recommended. - Asthma education: Rinsing after each inhaled steroid use 2. Multiple allergies - ICD9: V15.09, ICD10: Z88.9 - follows with Dr. Hankins - continue Tezspire - Continue Singulair, Zyrtec and Flonase/Astelin nasal spray F/u 6 months Portions of this documentation were copied and pasted from previous office visit notes in order to provide a cohesive continuity of the history. The note has been reviewed and edited and updated as necessary. Ariela Talley APRN.CNP I spent a total of 16 minutes on the date of the service which included preparing to see the patient, [id number] patient care, completing clinical documentation, performing a medically appropriate examination, and counseling and educating the patient/family/caregiver. documented in this encounter [facility] 01-06-2025 Note HNO ID: [id number] Author: ARIELA TALLEY APRN.CNP Service: ? Author Type: Nurse Practitioner Type: Progress Notes Filed: 01/06/2025 15:23 Note Text: Pulmonary Medicine Patients name: Bessie Solomon PCP: Diane Bazzi MD CC: follow-up Asthma HPI: Bessie Solomon is a 39 year old female non-smoker with PMH significant for severe asthma. Previously intolerant of LAMA with severe LE cramping. Current therapy consists of Advair, Albuterol and Tezspire. Also uses Singulair, Zyrtec and Nasal spray. MONIKA 06/2024 with stable symptoms. PFT and nitric oxide normal. She was seen in [facility] on 09/29 with cough, fever and runny nose and tested positive for RSV. Treated with Prednisone. Symptoms lasted for a month before resolving. Otherwise, she has done well since her last visit.Today, patient reports occasional cough with yellow sputum. No hemoptysis. Denies wheezing, chest tightness, or dyspnea with exertion or at rest. Denies any current fevers, chills, or night sweats. No recent hospitalizations or ED visits or upper respiratory infections. Has not used Albuterol since she was sick in September. PAST MEDICAL HISTORY Diagnosis Date Acetabular labrum tear, left, initial encounter 09/14/2023 Acetabular labrum tear, unspecified laterality, subsequent encounter 09/14/2023 Asthma (HCC) Constipation Diarrhea Dyspnea on exertion History of echocardiogram 05/13/2021 EF 60-65% RV systolic pressure 25mmHg R atrial pressure 3mmHg History of stress test 05/13/2021 no ischemic electrocardiogrpahic changes noted pt developed chest pressure ehich resolved in recovery phase average exercise capacity for age baseline htn with a normal BP response to exercise Tear of right acetabular labrum 12/14/2023 Allergies: Clindamycin Rash, GI Upset Septra [Sulfamethox* Rash, GI Upset Medication List Accurate as of January 06, 2025 12:58 PM. If you have any questions, ask your nurse or doctor. CONTINUE taking these medications * albuterol HFA 90 mcg/actuation inhaler Commonly known as: VENTOLIN HFA Inhale 2 Puffs as instructed every 4 hours as needed for wheezing/shortness of breath (and before sexertion / exercise). * albuterol 2.5 mg /3 mL (0.083 %) nebulizer solution Commonly known as: PROVENTIL Use 3 mL via nebulizer every 4 hours as needed for wheezing/shortness of breath. * albuterol HFA 90 mcg/actuation inhaler Commonly known as: PROVENTIL HFA, VENTOLIN HFA Inhale 2 Puffs as instructed every 4 hours as needed for wheezing/shortness of breath. azelastine 0.1% nasal spray Use 2 Sprays in each nostril two times a day as needed. biotin 5 mg Tab cetirizine 10 mg tablet Commonly known as: ZYRTEC fexofenadine 180 mg tablet Commonly known as: GM fluticasone 50 mcg/actuation nasal spray Commonly known as: FLONASE Use 2 Sprays in each nostril once daily. fluticasone-salmeterol HFA 230-21 mcg/actuation inhaler Commonly known as: ADVAIR HFA Inhale 2 Puffs as instructed two times a day. methocarbamol 500 mg tablet Commonly known as: ROBAXIN Take 1-2 tablets at bedtime as needed for pain or muscle spasms montelukast 10 mg tablet Commonly known as: SINGULAIR TAKE 1 TABLET BY MOUTH DAILY AT BEDTIME ondansetron orally disintegrating 4 mg disintegrating tablet Commonly known as: ZOFRAN ODT Take 1 tablet by mouth every 8 hours as needed for nausea/vomiting. PREDNISONE ORAL PROBIOTIC 4X ORAL TEZSPIRE 210 mg/1.91 mL (110 mg/mL) pen injector Generic drug: tezepelumab-ekko Inject 210 mg subcutaneously every 4 weeks. * This list has 3 medication(s) that are the same as other medications prescribed for you. Read the directions carefully, and ask your doctor or other care provider to review them with you. DATA: I personally reviewed and analyzed all labs, radiographs and available pulmonary function testing PFT: 06/2024 Spirometry is normal. CXR: Last XR Chest - Impression Only XR CHEST 2V FRONTAL/LAT Exam End: 09/29/2024 7:10 PM (Final result) Impression: IMPRESSION: No acute radiographic abnormality. ... IMMUNIZATIONS Prevnar - xx Pneumovax 23 - xx Influenza - 05/2024 COVID-19 - xx RSV- xx Review of Systems Constitutional: Negative for activity change, appetite change, fatigue and unexpected weight change. HENT: Positive for congestion (chronic). Negative for mouth sores, postnasal drip and sinus pain. Respiratory: Positive for cough. Negative for chest tightness, shortness of breath and wheezing. Cardiovascular: Negative for chest pain, palpitations and leg swelling. Allergic/Immunologic: Negative for environmental allergies. Neurological: Negative for dizziness, weakness and light-headedness. Pulse 60 Resp 17 Wt 90.3 kg (199 lb) LMP 12/24/2024 (Exact Date) SpO2 100% BMI 33.12 kg/m? Physical Exam Vitals reviewed. Constitutional: General: She is not in acute distress. Appearance: Normal appearance. (more content not included)... [facility] 01-06-2025 History of Present illness Narrative Radiology Service Progress Note PATIENT NAME: Bessie Solomon DATE OF SERVICE: January 06, 2025 TIME: 10:10 AM PATIENT IDENTITY VERIFICATION COMPLETED USING TWO (2) IDENTIFIERS: Name and Date of confirmed by patient verbally. FALL SCREENING: Has the patient had 2 falls in the last year or 1 fall with injury or currently using an Ambulatory Assistive Device (Walker, Cane, Wheelchair, Crutches, etc.)? No PATIENT GENDER DATA: Assigned female at . status: : No status: NO. PATIENT RELEVANT IMPLANT DATA REVIEWED: Not Applicable PATIENT PRESENTS WITH AN IMPLANTABLE OR ATTACHED INSTRUMENTATION DESIGNER: No RADIOLOGY DEPARTMENT: Ultrasound PERIPHERAL IV DATA: Not applicable SIGNED BY: Jaja Mak RDMS RVT January 06, 2025 10:10 AM documented in this encounter [facility] 01-06-2025 Note HNO ID: [id number] Author: JAJA MAK RDMS Service: ? Author Type: Clinical Psychiatrist Type: Progress Notes Filed: 01/06/2025 10:10 Note Text: Radiology Service Progress Note PATIENT NAME: Bessie Solomon DATE OF SERVICE: January 06, 2025 TIME: 10:10 AM PATIENT IDENTITY VERIFICATION COMPLETED USING TWO (2) IDENTIFIERS: Name and Date of confirmed by patient verbally. FALL SCREENING: Has the patient had 2 falls in the last year or 1 fall with injury or currently using an Ambulatory Assistive Device (Walker, Cane, Wheelchair, Crutches, etc.)? No PATIENT GENDER DATA: Assigned female at . status: : No status: NO. PATIENT RELEVANT IMPLANT DATA REVIEWED: Not Applicable PATIENT PRESENTS WITH AN IMPLANTABLE OR ATTACHED INSTRUMENTATION DESIGNER: No RADIOLOGY DEPARTMENT: Ultrasound PERIPHERAL IV DATA: Not applicable SIGNED BY: Jaja Mak RDMS RVT January 06, 2025 10:10 AM [facility] 01-02-2025 Note HNO ID: [id number] Author: LELIA NOVAK APRN.CNM Service: ? Author Type: Information Services Assistant Type: Progress Notes Filed: 01/02/2025 13:57 Note Text: Bessie Solomno is a 39 year old female who presents for problem visit for irregular periods. HPI: Cycles typically every 28-30 days lasting 5 days. In October had period then 1 week later had another bout of bleeding for 4 days. She has continued to have some type of bleeding every other week. Denies any pelvic pain. History of uterine fibroid. Sexually active with partner who has vasectomy. Reports occasional pain and bleeding with intercourse. OB History Gravida2 Para2 Term2 Preterm0 AB0 Living2 SAB0 IAB0 Ectopic0 Multiple0 Live Births0 [facility] Rn History LMP: 12/24/2024 (Exact Date), Having periods Age at Menarche: Age at First : Age at Menopause: [facility] Rn History Comments: Sexual Activity: Yes; Male Contraception: Vasectomy REVIEW OF SYSTEMS Abdomen: No bloating, early satiety, indigestion, or increased flatulence. No abdominal pain, nausea, vomiting, diarrhea, or constipation. Bladder: No dysuria, gross hematuria, urinary frequency, urinary urgency, or incontinence. Breast: No breast lumps, nipple d/c, overlying skin changes, redness or skin retraction. Expanded ROS: N/A Allergies and current medication updated:Yes SENSITIVE EXAM: Sensitive exam not performed. EXAM: BP 116/74 Wt 199 lb (90.3kg) LMP 12/24/2024 GENERAL: pleasant, female in no apparent distress HEENT: Normocephalic and atraumatic NECK: Supple and full range of motion DERMATOLOGY: Normal and without lesions BREAST: deferred CHEST: Normal inspiratory effort ABDOMEN: Deferred PELVIC: deferred BIMANUAL: deferred NEURO: alert and oriented x3,exam grossly non-focal EXTREMITIES: normal ASSESSMENT AND PLAN: Assessment AND Plan Irregular periods/menstrual cycles Orders: US FEMALE PELVIS TRANSVAG; Future COMPLETE BLOOD COUNT; Future History of uterine fibroid Menorrhagia with irregular cycle Dyspareunia in female - Offered Aygestin PO taper- patient declined at this time - Pelvic US - CBC, TSH - Discussed EMB in the future - Will follow up with patient after results and discuss plan of care MARCO Kruger APRN.CNM [facility] 01-02-2025 History of Present illness Narrative Bessie Solomon is a 39 year old female who presents for problem visit for irregular periods. HPI: Cycles typically every 28-30 days lasting 5 days. In October had period then 1 week later had another bout of bleeding for 4 days. She has continued to have some type of bleeding every other week. Denies any pelvic pain. History of uterine fibroid. Sexually active with partner who has vasectomy. Reports occasional pain and bleeding with intercourse. OB History Gravida2 Para2 Term2 Preterm0 AB0 Living2 SAB0 IAB0 Ectopic0 Multiple0 Live Births0 [facility] Rn History LMP: 12/24/2024 (Exact Date), Having periods Age at Menarche: Age at First : Age at Menopause: [facility] Rn History Comments: Sexual Activity: Yes; Male Contraception: Vasectomy REVIEW OF SYSTEMS Abdomen: No bloating, early satiety, indigestion, or increased flatulence. No abdominal pain, nausea, vomiting, diarrhea, or constipation. Bladder: No dysuria, gross hematuria, urinary frequency, urinary urgency, or incontinence. Breast: No breast lumps, nipple d/c, overlying skin changes, redness or skin retraction. Expanded ROS: N/A Allergies and current medication updated:Yes SENSITIVE EXAM: Sensitive exam not performed. EXAM: BP 116/74 Wt 199 lb (90.3kg) LMP 12/24/2024 GENERAL: pleasant, female in no apparent distress HEENT: Normocephalic and atraumatic NECK: Supple and full range of motion DERMATOLOGY: Normal and without lesions BREAST: deferred CHEST: Normal inspiratory effort ABDOMEN: Deferred PELVIC: deferred BIMANUAL: deferred NEURO: alert and oriented x3,exam grossly non-focal EXTREMITIES: normal ASSESSMENT AND PLAN: Assessment & Plan Irregular periods/menstrual cycles Orders: US FEMALE PELVIS TRANSVAG; Future COMPLETE BLOOD COUNT; Future History of uterine fibroid Menorrhagia with irregular cycle Dyspareunia in female - Offered Aygestin PO taper- patient declined at this time - Pelvic US - CBC, TSH - Discussed EMB in the future - Will follow up with patient after results and discuss plan of care MARCO Kruger APRN.CNM documented in this encounter [facility] 12-09-2024 History of Present illness Narrative Program_ID:[id number] Access Code: [email or web address] URL: [email or web address] Date: 12-09-2024 Prepared By: Jaja Leonard Program Notes Exercises - Lying Prone - 2-3 x daily - 7 x weekly - sets - reps - Static Prone on Elbows - 2-3 x daily - 7 x weekly - 2-3 sets - 1 reps - Prone Push Ups on Forearms - 2-3 x daily - 7 x weekly - 2-3 sets - 10 reps - Standing Lumbar Extension - 1 x daily - 7 x weekly - 2-3 sets - 10 reps - Quadruped Hip Abduction and External Rotation - 1 x daily - 7 x weekly - 3 sets - 10 reps - Bird Dog - 1 x daily - 7 x weekly - 1-2 sets - reps Images from the original note were not included. Episode Visit Count: 6 Therapist That Will Accept/Oversee The Plan Of Care: Enrique Almonte Start of Care Date: 10/17/24 Onset Date: 09/03/24 (2 weeks before Bruna) Plan of Care Certification Date: 04/11/24 Next Certification Due Date: 06/06/24 REHABILITATION AND SPORTS THERAPY PHYSICAL THERAPY DISCONTINUANCE OF CARE PLAN OF CARE UPDATE: Assessment: Bessie Solomon is discontinued from Physical Therapy services due to goal achievement.. Patient was seen for 6 visits from Start of Care Date: 10/17/24 to 12/09/2024 and treatment included: Therapeutic exercise, Neuromuscular re-education, Manual therapy, and Self-prison management. Goals for Episode of Care: established 10/17/24 Goals updated on 12/09/2024. [place] in home exercise program. -- MET Patient will decrease pain rating by 2 points to meet minimal clinical important difference for numeric pain rating scale. -- MET Patient will increase active ROM of L hip to symmetrical to allow pt to to improve postural alignment, to improve performance of ADLs, and to improve gait mechanics / gait pattern . -- MET Patient will increase flexibility of L SLR to 50-70 degrees and WNL to improve ability to maintain proper posture, improve mechanics, and decrease pain. Perform stair negotiation;walking;standing;sitti ng;rising from a chair; sitting cross-legged on floor, figure 4 sitting, prolonged walking, sitting with hips flexed (propped on stool keeping hip more extended is better) without pain. -- MET Improve postural awareness. -- MET Normal gait. -- MET Reciprocal stair negotiation. -- MET Independent in home exercises. -- MET Stand / Walk a full work day with less or no pain/symptoms. -- MET Sleep through night without pain/symptoms. -- MET Knowledgeable regarding prophylaxis. -- MET Patient Goals: Less pain. -- mET SUBJECTIVE: Denies hip pain. Self managing low back and hip symptoms. Agrees to DC today.. Pain: Pain Pain Level: 0 Pain Location: Hip - Left, Low Back/Lumbar Spine - Left, Groin - Left Post Treatment Pain Post Treatment Pain Location: Hip - Left, Hip - Right PROMIS Scales 11/17/2024 10/16/2024 09/09/2024 Higher is Better Phys Func - T Score 38 (moderate dysfunction) 38 (moderate dysfunction) 36 (moderate dysfunction) Phys Func - Percentile 12 12 8 Self-Eff Symptom - T Score 49 (Average) 50 (Average) Self-Eff Symptom - Percentile 46 50 Cognitve Function - T Score 62 (within normal limits) 09/09/2024 07/23/2021 Lower is Better Pain Interference - T Score 67 (moderate) 62 (moderate) Pain Interference - Percentile 4 12 T-scores: mean of general population = 50. 5 points is clinically meaningfully difference Percentiles provide an indication of how the patient's score ranks in relation to the general population. Higher percentile rankings indicate better function/quality of life. 50th percentile is the average of the general population and indicates half of respondents had a worse score. OBJECTIVE MEASURES WITH LEVEL OF FUNCTION: LE AROM L Hip Flexion: 112 Degrees Gait Gait: Independent Gait Observation: unremarkable TREATMENT: Therapeutic Exercise: 1: upright bike seat 9, level 2, 5 min, 1:1 throughout,subjective collected. 2: *Access Code: [email or web address] URL: [email or web address] Date: 12/09/2024 Prepared by: Jaja Jean Exercises - Lying Prone - 2-3 x daily - 7 x weekly - 2-3 hold - Static Prone on Elbows - 2-3 x daily - 7 x weekly - 2-3 sets - 1 reps - 2-3 hold - Prone Push Ups on Forearms - 2-3 x daily - 7 x weekly - 2-3 sets - 10 reps - 1 hold - Standing Lumbar Extension - 1 x daily - 7 x weekly - 2-3 sets - 10 reps - Skilled Intervention: Patient was educated in proper exercise technique and purpose for exercises. Skilled judgment was used in selection of appropriate interventions. Provided written instruction for home exercise program to facilitate proper performance and compliance. Educated patient on rationale for performing exercises in regards to decreasing fatigue , including balance, increase ease of ADL, and ROM and function . Neuromuscular Re-Education: 1: *- Quadruped Hip Abduction and External Rotation - 1 x daily - 7 x weekly - 3 sets - 10 reps - Bird Dog - 1 x daily - 7 x weekly - 1-2 sets - 60 seconds duration Skilled Intervention: Skilled judgment used to assess appropriate program for balance and coordination activity. Education in proprioceptive/kinesthetic awareness during standing and dynamic activities. Correct performance of home program was facilitated with verbal, visual, and tactile cueing. Self-Intermediate Management: 1: discussed self treating the LBP prior to the hip pain to determine if it is referred from the low back prior to completing hip exercises to get relief. Skilled Intervention: Skilled judgment in the selection of proper modification for activity of daily living/home management based on clinical presentation, deficits, and needs. Provided written instruction for activities of daily living techniques to facilitate proper performance and compliance. Reviewed patient specific diagnosis in relation to activities of daily living/home management. Activity progression based on professional judgement. Provided written instruction for home program to facilitate proper performance and compliance. Correct performance of home program was facilitated with verbal, visual, and tactile cueing. Billing Therapeutic Exercise Treatment Minutes: 15 Neuromuscular Re-Education Treatment Minutes: 10 Self-Care/Home Management Treatment Minutes: 5 Skilled Treatment Time Minutes (timed and untimed codes): 30 Total Session Time (minutes): 30 Session Start Time : 1745 Session Stop Time : 1815 Jaja Leonard PT documented in this encounter [facility] 12-09-2024 Note HNO ID: [id number] Author: JAJA LEONARD PT Service: ? Author Type: Physical Therapist Type: Progress Notes Filed: 12/09/2024 18:19 Note Text: Episode Visit Count: 6 Therapist That Will Accept/Oversee The Plan Of Care: Enrique Almonte Start of Care Date: 10/17/24 Onset Date: 09/03/24 (2 weeks before Bruna) Plan of Care Certification Date: 04/11/24 Next Certification Due Date: 06/06/24 REHABILITATION AND SPORTS THERAPY PHYSICAL THERAPY DISCONTINUANCE OF CARE PLAN OF CARE UPDATE: Assessment: Bessie Solomon is discontinued from Physical Therapy services due to goal achievement.. Patient was seen for 6 visits from Start of Care Date: 10/17/24 to 12/09/2024 and treatment included: Therapeutic exercise, Neuromuscular re-education, Manual therapy, and Self-prison management. Goals for Episode of Care: established 10/17/24 Goals updated on 12/09/2024. [place] in home exercise program. -- MET Patient will decrease pain rating by 2 points to meet minimal clinical important difference for numeric pain rating scale. -- MET Patient will increase active ROM of L hip to symmetrical to allow pt to to improve postural alignment, to improve performance of ADLs, and to improve gait mechanics / gait pattern . -- MET Patient will increase flexibility of L SLR to 50-70 degrees and WNL to improve ability to maintain proper posture, improve mechanics, and decrease pain. Perform stair negotiation;walking;standing;sitti ng;rising from a chair; sitting cross-legged on floor, figure 4 sitting, prolonged walking, sitting with hips flexed (propped on stool keeping hip more extended is better) without pain. -- MET Improve postural awareness. -- MET Normal gait. -- MET Reciprocal stair negotiation. -- MET Independent in home exercises. -- MET Stand / Walk a full work day with less or no pain/symptoms. -- MET Sleep through night without pain/symptoms. -- MET Knowledgeable regarding prophylaxis. -- MET Patient Goals: Less pain. -- mET SUBJECTIVE: Denies hip pain. Self managing low back and hip symptoms. Agrees to DC today.. Pain: Pain Pain Level: 0 Pain Location: Hip - Left, Low Back/Lumbar Spine - Left, Groin - Left Post Treatment Pain Post Treatment Pain Location: Hip - Left, Hip - Right PROMIS Scales 11/17/2024 10/16/2024 09/09/2024 Higher is Better Phys Func - T Score 38 (moderate dysfunction) 38 (moderate dysfunction) 36 (moderate dysfunction) Phys Func - Percentile 12 12 8 Self-Eff Symptom - T Score 49 (Average) 50 (Average) Self-Eff Symptom - Percentile 46 50 Cognitve Function - T Score 62 (within normal limits) 09/09/2024 07/23/2021 Lower is Better Pain Interference - T Score 67 (moderate) 62 (moderate) Pain Interference - Percentile 4 12 T-scores: mean of general population = 50. 5 points is clinically meaningfully difference Percentiles provide an indication of how the patient's score ranks in relation to the general population. Higher percentile rankings indicate better function/quality of life. 50th percentile is the average of the general population and indicates half of respondents had a worse score. OBJECTIVE MEASURES WITH LEVEL OF FUNCTION: LE AROM L Hip Flexion: 112 Degrees Gait Gait: Independent Gait Observation: unremarkable TREATMENT: Therapeutic Exercise: 1: upright bike seat 9, level 2, 5 min, 1:1 throughout,subjective collected. 2: *Access Code: [email or web address] URL: [email or web address] Date: 12/09/2024 Prepared by: Jaja Leonard Exercises - Lying Prone - 2-3 x daily - 7 x weekly - 2-3 hold - Static Prone on Elbows - 2-3 x daily - 7 x weekly - 2-3 sets - 1 reps - 2-3 hold - Prone Push Ups on Forearms - 2-3 x daily - 7 x weekly - 2-3 sets - 10 reps - 1 hold - Standing Lumbar Extension - 1 x daily - 7 x weekly - 2-3 sets - 10 reps - Skilled Intervention: Patient was educated in proper exercise technique and purpose for exercises. Skilled judgment was used in selection of appropriate interventions. Provided written instruction for home exercise program to facilitate proper performance and compliance. Educated patient on rationale for performing exercises in regards to decreasing fatigue , including balance, increase ease of ADL, and ROM and function . Neuromuscular Re-Education: 1: *- Quadruped Hip Abduction and External Rotation - 1 x daily - 7 x weekly - 3 sets - 10 reps - Bird Dog - 1 x daily - 7 x weekly - 1-2 sets - 60 seconds duration Skilled Intervention: Skilled judgment used to assess appropriate program for balance and coordination activity. Education in proprioceptive/kinesthetic awareness during standing and dynamic activities. Correct performance of home program was facilitated with verbal, visual, and tactile cueing. Self-Intermediate Management: 1: discussed self treating the LBP prior to the hip pain to determine if it is referred from the low back prior to completing hip exercise (more content not included)... [facility] 12-04-2024 Progress note Formatting of t his note might be different from the original. TSH WNL [facility] 12-04-2024 Miscellaneous Notes TSH WNL documented in this encounter [facility] 12-02-2024 Note HNO ID: [id number] Author: JAJA LEONARD PT Service: ? Author Type: Physical Therapist Type: Progress Notes Filed: 12/02/2024 18:24 Note Text: Episode Visit Count: 5 Therapist That Will Accept/Oversee The Plan Of Care: Enrique Almonte Start of Care Date: 10/17/24 Onset Date: 09/03/24 (2 weeks before Moseley) Plan of Care Certification Date: 04/11/24 Next Certification Due Date: 06/06/24 REHABILITATION AND SPORTS THERAPY PHYSICAL THERAPY TREATMENT NOTE ASSESSMENT: Bessie Solomon tolerated the session with decreased symptoms. She demonstrated improvements in minimal to no pain felt after a full day at work this visit. Pt.continues to get the most relief with extension based lumbar exercises as well as quadruped TA stabilization strengthening. The patient will continue to benefit from ongoing skilled physical therapy to progress toward set goals. PLAN FOR NEXT VISIT: progress to standing core stabilization strengthening in standing, assess flexion of R hip to 90 degrees - stretch R hip flexors if indicated SUBJECTIVE: Injection is still effective. Pain: Pain Pain Level: 1 Pain Location: Hip - Left, Low Back/Lumbar Spine - Left, Groin - Left Post Treatment Pain Post Treatment Pain Level: 0 Post Treatment Pain Location: Hip - Left, Hip - Right OBJECTIVE MEASURES WITH LEVEL OF FUNCTION: TREATMENT: Therapeutic Exercise: 1: PAT 3 min 2: press ups 2x10 3: supermans 10 sec hold 5x 4: tuck hold 5x10 sec hold 5: pelvic tilts 2x10 6: hooklying pelvic clocks 10x CW and 10x CCW 4 sets each direciton 7: attempted pelvic clots with hips 90 flexion - unable to tolerate due to R hip pain Skilled Intervention: Patient was educated in proper [...] and function . Patient education as noted. Neuromuscular Re-Education: 1: quadruped cat/camel 4x 60 seconds 2: quadruped bird/dog 4x 60 seconds (tactile cues to correct rotation of the lumbar spine with LLE hip extension) 3: lateral step over BOSU ball 2x10 each direction Skilled Intervention: Skilled judgment used to assess appropriate program for balance and coordination activity. Education in proprioceptive/kinesthetic awareness during dynamic activities. Reviewed and educated patient on additions/changes for home program as noted above with an (*). Patient education as noted. Billing Therapeutic Exercise Treatment Minutes: 23 Neuromuscular Re-Education Treatment Minutes: 15 Skilled Treatment Time Minutes (timed and untimed codes): 38 Total Session Time (minutes): 38 Session Start Time : 1746 Session Stop Time : 1824 Jaja Leonard, PT [facility] 12-02-2024 History of Present illness Narrative Episode Visit Count: 5 Therapist That Will Accept/Oversee The Plan Of Care: Enrique Almonte Start of Care Date: 10/17/24 Onset Date: 09/03/24 (2 weeks before Mose[place]) Plan of Care Certification Date: 04/11/24 Next Certification Due Date: 06/06/24 REHABILITATION AND SPORTS THERAPY PHYSICAL THERAPY TREATMENT NOTE ASSESSMENT: Bessie Solomon tolerated the session with decreased symptoms. She demonstrated improvements in minimal to no pain felt after a full day at work this visit. Pt.continues to get the most relief with extension based lumbar exercises as well as quadruped TA stabilization strengthening. The patient will continue to benefit from ongoing skilled physical therapy to progress toward set goals. PLAN FOR NEXT VISIT: progress to standing core stabilization strengthening in standing, assess flexion of R hip to 90 degrees - stretch R hip flexors if indicated SUBJECTIVE: Injection is still effective. Pain: Pain Pain Level: 1 Pain Location: Hip - Left, Low Back/Lumbar Spine - Left, Groin - Left Post Treatment Pain Post Treatment Pain Level: 0 Post Treatment Pain Location: Hip - Left, Hip - Right OBJECTIVE MEASURES WITH LEVEL OF FUNCTION: TREATMENT: Therapeutic Exercise: 1: PAT 3 min 2: press ups 2x10 3: supermans 10 sec hold 5x 4: tuck hold 5x10 sec hold 5: pelvic tilts 2x10 6: hooklying pelvic clocks 10x CW and 10x CCW 4 sets each direciton 7: attempted pelvic clots with hips 90 flexion - unable to tolerate due to R hip pain Skilled Intervention: Patient was educated in proper [...] and function . Patient education as noted. Neuromuscular Re-Education: 1: quadruped cat/camel 4x 60 seconds 2: quadruped bird/dog 4x 60 seconds (tactile cues to correct rotation of the lumbar spine with LLE hip extension) 3: lateral step over BOSU ball 2x10 each direction Skilled Intervention: Skilled judgment used to assess appropriate program for balance and coordination activity. Education in proprioceptive/kinesthetic awareness during dynamic activities. Reviewed and educated patient on additions/changes for home program as noted above with an (*). Patient education as noted. Billing Therapeutic Exercise Treatment Minutes: 23 Neuromuscular Re-Education Treatment Minutes: 15 Skilled Treatment Time Minutes (timed and untimed codes): 38 Total Session Time (minutes): 38 Session Start Time : 1746 Session Stop Time : 1824 Jaja Leonard PT documented in this encounter [facility] 11-25-2024 Note HNO ID: [id number] Author: JAJA LEONARD PT Service: ? Author Type: Physical Therapist Type: Progress Notes Filed: 11/25/2024 18:20 Note Text: Episode Visit Count: 4 Therapist That Will Accept/Oversee The Plan Of Care: Enrique Almonte Start of Care Date: 10/17/24 Onset Date: 09/03/24 (2 weeks before Bruna) Plan of Care Certification Date: 04/11/24 Next Certification Due Date: 06/06/24 REHABILITATION AND SPORTS THERAPY PHYSICAL THERAPY TREATMENT NOTE ASSESSMENT: Bessie Solomon tolerated the session with expected muscle soreness. She demonstrated improvements in lumbar extension ROM in the lower lumbar spine with prone press ups with the hands placed below the chest. The patient will continue to benefit from ongoing skilled physical therapy to progress toward set goals. PLAN FOR NEXT VISIT: modified the seated TA marches to hooklying to avoid lumbar flexion SUBJECTIVE: Pt. finally felt 80% improvement following injection. Pt. 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 Seated TA marches increased pain. Patient Goals: Less pain. Functional Limitations: stair negotiation, walking, standing, sitting, rising from a chair (sitting cross-legged on floor, figure 4 sitting, prolonged walking, sitting with hips flexed (propped on stool keeping hip more extended is better)) Pain: Pain Pain Level: 3 Pain Location: Hip - Left, Low Back/Lumbar Spine - Left, Groin - Left Post Treatment Pain Post Treatment Pain Level: Better Post Treatment Pain Location: Hip - Left, Hip - Right OBJECTIVE MEASURES WITH LEVEL OF FUNCTION: TREATMENT: Therapeutic Exercise: 1: prone lying 3 min 2: PAT 3 min 3: prone hip extension 2x12 B 4: prone knee flexion 2x12 B 5: prone press ups with hands placed low below the chest to fulcrum at the lower lumbar spine 4x5 (instructed only to extend to the point of) 6: prone hip abd 2 sets of 5, x10 sec hold (gait belt around the thighs) 7: prone hip IR isometric, gait belt around the legs 2x5, 10 sec hold Skilled Intervention: Patient was educated in proper exercise technique and purpose for exercises. Skilled judgment was used in selection of appropriate interventions. Educated patient on rationale for performing exercises in regards to decreasing fatigue , increase ease of ADL, and ROM and function . Patient education as noted. Billing Therapeutic Exercise Treatment Minutes: 29 Skilled Treatment Time Minutes (timed and untimed codes): 29 Total Session Time (minutes): 29 Session Start Time : 1749 Session Stop Time : 1818 Jaja Leonard, PT [facility] 11-25-2024 History of Present illness Narrative Episode Visit Count: 4 Therapist That Will Accept/Oversee The Plan Of Care: EmmanuelfabianEnrique Start of Care Date: 10/17/24 Onset Date: 09/03/24 (2 weeks before Mose[place]) Plan of Care Certification Date: 04/11/24 Next Certification Due Date: 06/06/24 REHABILITATION AND SPORTS THERAPY PHYSICAL THERAPY TREATMENT NOTE ASSESSMENT: Bessie Solomon tolerated the session with expected muscle soreness. She demonstrated improvements in lumbar extension ROM in the lower lumbar spine with prone press ups with the hands placed below the chest. The patient will continue to benefit from ongoing skilled physical therapy to progress toward set goals. PLAN FOR NEXT VISIT: modified the seated TA marches to hooklying to avoid lumbar flexion SUBJECTIVE: Pt. finally felt 80% improvement following injection. Pt. 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 Seated TA marches increased pain. Patient Goals: Less pain. Functional Limitations: stair negotiation, walking, standing, sitting, rising from a chair (sitting cross-legged on floor, figure 4 sitting, prolonged walking, sitting with hips flexed (propped on stool keeping hip more extended is better)) Pain: Pain Pain Level: 3 Pain Location: Hip - Left, Low Back/Lumbar Spine - Left, Groin - Left Post Treatment Pain Post Treatment Pain Level: Better Post Treatment Pain Location: Hip - Left, Hip - Right OBJECTIVE MEASURES WITH LEVEL OF FUNCTION: TREATMENT: Therapeutic Exercise: 1: prone lying 3 min 2: PAT 3 min 3: prone hip extension 2x12 B 4: prone knee flexion 2x12 B 5: prone press ups with hands placed low below the chest to fulcrum at the lower lumbar spine 4x5 (instructed only to extend to the point of) 6: prone hip abd 2 sets of 5, x10 sec hold (gait belt around the thighs) 7: prone hip IR isometric, gait belt around the legs 2x5, 10 sec hold Skilled Intervention: Patient was educated in proper exercise technique and purpose for exercises. Skilled judgment was used in selection of appropriate interventions. Educated patient on rationale for performing exercises in regards to decreasing fatigue , increase ease of ADL, and ROM and function . Patient education as noted. Billing Therapeutic Exercise Treatment Minutes: 29 Skilled Treatment Time Minutes (timed and untimed codes): 29 Total Session Time (minutes): 29 Session Start Time : 1749 Session Stop Time : 1818 Jaja Leonard PT documented in this encounter [facility] 11-17-2024 Note HNO ID: [id number] Author: JAJA LEONARD PT Service: ? Author Type: Physical Therapist Type: Progress Notes Filed: 11/18/2024 08:08 Note Text: Episode Visit Count: 3 Therapist That Will Accept/Oversee The Plan Of Care: Enrique Almonte Start of Care Date: 10/17/24 Onset Date: 09/03/24 (2 weeks before Mose[place]) Plan of Care Certification Date: 04/11/24 Next Certification Due Date: 06/06/24 Patient Identified by Name and Date of : Yes REHABILITATION AND SPORTS THERAPY PHYSICAL THERAPY TREATMENT NOTE ASSESSMENT: Bessie Solomon tolerated the session with fatigue and no issues. She demonstrated improvements in tolerance to exercise without pain. The patient will continue to benefit from ongoing skilled physical therapy to progress toward set goals. PLAN FOR NEXT VISIT: Asses response to core strengthening SUBJECTIVE: Pt reports that she had the injection in her hip, was rough for a few days but today she is feeling much better. Pt able to sit up straighter and noticced she was walking at work without a limp without thinking about it. Has not tried sitting cross-legged. Pain: Pain Pain Level: 1 Pain Location: Hip - Left, Low Back/Lumbar Spine - Left, Groin - Left OBJECTIVE MEASURES WITH LEVEL OF FUNCTION: Improved gait pattern this visit. TREATMENT: Therapeutic Exercise: 1: prone lying 3 min 2: prone press ups 2x10 3: prone hip extension 2x12 B 4: prone knee flexion 2x12 B 5: PPT 4x10 6: Bridges 3x10 7: PPT with BKFO 3x10 8: Seated TA activaton with alt LE marchign 3x10 Skilled Intervention: Patient was educated in proper exercise technique and purpose for exercises. Skilled judgment was used in selection of appropriate interventions. Correct performance of therapeutic exercises was facilitated with verbal and visual cuing. Neuromuscular Re-Education: 1: Quadruped alt UE lifts 2x12 B 2: Quadruped alt LE extensions 2x12 B Skilled Intervention: Skilled judgment used to assess appropriate program for balance and coordination activity. Billing Therapeutic Exercise Treatment Minutes: 25 Neuromuscular Re-Education Treatment Minutes: 13 Skilled Treatment Time Minutes (timed and untimed codes): 38 Total Session Time (minutes): 38 Session Start Time : 1756 Session Stop Time : 1834 MK Mckee, PT [facility] 11-17-2024 History of Present illness Narrative Episode Visit Count: 3 Therapist That Will Accept/Oversee The Plan Of Care: Enrique Almonte Start of Care Date: 10/17/24 Onset Date: 09/03/24 (2 weeks before Bruna) Plan of Care Certification Date: 04/11/24 Next Certification Due Date: 06/06/24 Patient Identified by Name and Date of : Yes REHABILITATION AND SPORTS THERAPY PHYSICAL THERAPY TREATMENT NOTE ASSESSMENT: Bessie Solomon tolerated the session with fatigue and no issues. She demonstrated improvements in tolerance to exercise without pain. The patient will continue to benefit from ongoing skilled physical therapy to progress toward set goals. PLAN FOR NEXT VISIT: Asses response to core strengthening SUBJECTIVE: Pt reports that she had the injection in her hip, was rough for a few days but today she is feeling much better. Pt able to sit up straighter and noticced she was walking at work without a limp without thinking about it. Has not tried sitting cross-legged. Pain: Pain Pain Level: 1 Pain Location: Hip - Left, Low Back/Lumbar Spine - Left, Groin - Left OBJECTIVE MEASURES WITH LEVEL OF FUNCTION: Improved gait pattern this visit. TREATMENT: Therapeutic Exercise: 1: prone lying 3 min 2: prone press ups 2x10 3: prone hip extension 2x12 B 4: prone knee flexion 2x12 B 5: PPT 4x10 6: Bridges 3x10 7: PPT with BKFO 3x10 8: Seated TA activaton with alt LE marchign 3x10 Skilled Intervention: Patient was educated in proper exercise technique and purpose for exercises. Skilled judgment was used in selection of appropriate interventions. Correct performance of therapeutic exercises was facilitated with verbal and visual cuing. Neuromuscular Re-Education: 1: Quadruped alt UE lifts 2x12 B 2: Quadruped alt LE extensions 2x12 B Skilled Intervention: Skilled judgment used to assess appropriate program for balance and coordination activity. Billing Therapeutic Exercise Treatment Minutes: 25 Neuromuscular Re-Education Treatment Minutes: 13 Skilled Treatment Time Minutes (timed and untimed codes): 38 Total Session Time (minutes): 38 Session Start Time : 1756 Session Stop Time : 1834 MK Mckee PT documented in this encounter [facility] 11-07-2024 Instructions Formatting of th is note might be different from the original. Radiology Service Progress Note PATIENT NAME: Bessie Solomon DATE OF SERVICE: November 07, 2024 TIME: 1:49 PM PATIENT IDENTITY VERIFICATION COMPLETED USING TWO (2) IDENTIFIERS: Name and Date of confirmed by patient verbally. FALL SCREENING: Has the patient had 2 falls in the last year or 1 fall with injury or currently using an Ambulatory Assistive Device (Walker, Cane, Wheelchair, Crutches, etc.)? No PATIENT GENDER DATA: Assigned female at . status: : No status: NO. PATIENT RELEVANT IMPLANT DATA REVIEWED: Not Applicable PATIENT PRESENTS WITH AN IMPLANTABLE OR ATTACHED INSTRUMENTATION DESIGNER: No RADIOLOGY DEPARTMENT: General X-ray: Exam(s) Completed: THERAPEUTIC JOINT INJECTION left hip PERIPHERAL IV DATA: Not applicable SIGNED BY: RT Loan(R) November 07, 2024 1:49 PM [facility] 11-07-2024 Miscellaneous Notes Radiology Service Progress Note PATIENT NAME: Bessie Solomon DATE OF SERVICE: November 07, 2024 TIME: 1:49 PM PATIENT IDENTITY VERIFICATION COMPLETED USING TWO (2) IDENTIFIERS: Name and Date of confirmed by patient verbally. FALL SCREENING: Has the patient had 2 falls in the last year or 1 fall with injury or currently using an Ambulatory Assistive Device (Walker, Cane, Wheelchair, Crutches, etc.)? No PATIENT GENDER DATA: Assigned female at . status: : No status: NO. PATIENT RELEVANT IMPLANT DATA REVIEWED: Not Applicable PATIENT PRESENTS WITH AN IMPLANTABLE OR ATTACHED INSTRUMENTATION DESIGNER: No RADIOLOGY DEPARTMENT: General X-ray: Exam(s) Completed: THERAPEUTIC JOINT INJECTION left hip PERIPHERAL IV DATA: Not applicable SIGNED BY: RT Loan(R) November 07, 2024 1:49 PM documented in this encounter [facility] 11-05-2024 History of Present illness Narrative Program_ID:[id number] Access Code: [email or web address] URL: [email or web address] Date: 11-05-2024 Prepared By: Jaja Leonard Program Notes Exercises - Lying Prone - 2-3 x daily - 7 x weekly - sets - reps - Static Prone on Elbows - 2-3 x daily - 7 x weekly - 2-3 sets - 1 reps - Prone Push Ups on Forearms - 2-3 x daily - 7 x weekly - 2-3 sets - 10 reps - Standing Lumbar Extension - 1 x daily - 7 x weekly - 2-3 sets - 10 reps - Prone Hip Extension - 1 x daily - 7 x weekly - 4 sets - 12 reps - Prone Knee Flexion - 1 x daily - 7 x weekly - 4 sets - 12 reps - Supine Posterior Pelvic Tilt - 1 x daily - 7 x weekly - 4 sets - 10 reps Episode Visit Count: 2 Therapist That Will Accept/Oversee The Plan Of Care: Enrique Almonte Start of Care Date: 10/17/24 Onset Date: 09/03/24 (2 weeks before Bruna) Plan of Care Certification Date: 04/11/24 Next Certification Due Date: 06/06/24 REHABILITATION AND SPORTS THERAPY PHYSICAL THERAPY TREATMENT NOTE ASSESSMENT: Bessie Solomon tolerated the session with decreased symptoms. She demonstrated difficulty with L hip extension with the knee extended or flexed in the prone position. Pt. Could benefit from glute strengthening in addition to lumbar extension based exercises. The patient will continue to benefit from ongoing skilled physical therapy to progress toward set goals. PLAN FOR NEXT VISIT: consider quadruped lumbar stabilization and hip strengthening SUBJECTIVE: Sunday pt. will have an x-ray guided injection into the hip to determine if the hip or the low back is the primary cause of symptoms. Low back exercises given last visit were helpful, she can now touch her toes. Pain: Pain Pain Level: 3 Pain Location: Hip - Left, Low Back/Lumbar Spine - Left, Groin - Left (SI joint) Description: Aching OBJECTIVE MEASURES WITH LEVEL OF FUNCTION: TREATMENT: Therapeutic Exercise: 1: prone lying 3 min 2: prone press ups 2x10 3: prone hip extension 2x12 each side, cues to avoid lumbar rotation 4: * - Prone Hip Extension - 1 x daily - 7 x weekly - 4 sets - 12 reps - Prone Knee Flexion - 1 x daily - 7 x weekly - 4 sets - 12 reps - Sidelying Reverse Clamshell - 1 x daily - 7 x weekly - 4 sets - 12 reps 5: dc SL reverse clamshells due to increased pinching pain felt in the L groin 6: PPT 4x10 Skilled Intervention: Patient was educated in proper [...] and function . Patient education as noted. Self-Intermediate Management: 1: discussed that symptom response to lumbar extension exercises suggests strongly a lumbar correlation, however it is not uncommon for the low back and hip to hurt as a result of each other or have simultaneous injury due to compensatory movements. 2: reminded pt. of correct gait Skilled Intervention: Skilled judgment in the selection of proper modification for activity of daily living/home management based on clinical presentation, deficits, and needs. Provided written instruction for activities of daily living techniques to facilitate proper performance and compliance. Reviewed patient specific diagnosis in relation to activities of daily living/home management. Activity progression based on professional judgement. Moderate verbal cues for maintaining neutral spine alignment. Provided written instruction for home program to facilitate proper performance and compliance. Correct performance of home program was facilitated with verbal, visual, and tactile cueing. Billing Therapeutic Exercise Treatment Minutes: 35 Self-Care/Home Management Treatment Minutes: 7 Skilled Treatment Time Minutes (timed and untimed codes): 42 Total Session Time (minutes): 42 Session Start Time : 804 Session Stop Time : 846 Jaja Leonard PT documented in this encounter [facility] 11-05-2024 Note HNO ID: [id number] Author: JAJA LEONARD PT Service: ? Author Type: Physical Therapist Type: Progress Notes Filed: 11/05/2024 08:48 Note Text: Episode Visit Count: 2 Therapist That Will Accept/Oversee The Plan Of Care: Enrique Almonte Start of Care Date: 10/17/24 Onset Date: 09/03/24 (2 weeks before Bruna) Plan of Care Certification Date: 04/11/24 Next Certification Due Date: 06/06/24 [facility]ERAPY PHYSICAL THERAPY TREATMENT NOTE ASSESSMENT: Bessie Solomon tolerated the session with decreased symptoms. She demonstrated difficulty with L hip extension with the knee extended or flexed in the prone position. Pt. Could benefit from glute strengthening in addition to lumbar extension based exercises. The patient will continue to benefit from ongoing skilled physical therapy to progress toward set goals. PLAN FOR NEXT VISIT: consider quadruped lumbar stabilization and hip strengthening SUBJECTIVE: Sunday pt. will have an x-ray guided injection into the hip to determine if the hip or the low back is the primary cause of symptoms. Low back exercises given last visit were helpful, she can now touch her toes. Pain: Pain Pain Level: 3 Pain Location: Hip - Left, Low Back/Lumbar Spine - Left, Groin - Left (SI joint) Description: Aching OBJECTIVE MEASURES WITH LEVEL OF FUNCTION: TREATMENT: Therapeutic Exercise: 1: prone lying 3 min 2: prone press ups 2x10 3: prone hip extension 2x12 each side, cues to avoid lumbar rotation 4: * - Prone Hip Extension - 1 x daily - 7 x weekly - 4 sets - 12 reps - Prone Knee Flexion - 1 x daily - 7 x weekly - 4 sets - 12 reps - Sidelying Reverse Clamshell - 1 x daily - 7 x weekly - 4 sets - 12 reps 5: dc SL reverse clamshells due to increased pinching pain felt in the L groin 6: PPT 4x10 Skilled Intervention: Patient was educated in proper [...] and function . Patient education as noted. Self-Intermediate Management: 1: discussed that symptom response to lumbar extension exercises suggests strongly a lumbar correlation, however it is not uncommon for the low back and hip to hurt as a result of each other or have simultaneous injury due to compensatory movements. 2: reminded pt. of correct gait Skilled Intervention: Skilled judgment in the selection of proper modification for activity of daily living/home management based on clinical presentation, deficits, and needs. Provided written instruction for activities of daily living techniques to facilitate proper performance and compliance. Reviewed patient specific diagnosis in relation to activities of daily living/home management. Activity progression based on professional judgement. Moderate verbal cues for maintaining neutral spine alignment. Provided written instruction for home program to facilitate proper performance and compliance. Correct performance of home program was facilitated with verbal, visual, and tactile cueing. Billing Therapeutic Exercise Treatment Minutes: 35 Self-Care/Home Management Treatment Minutes: 7 Skilled Treatment Time Minutes (timed and untimed codes): 42 Total Session Time (minutes): 42 Session Start Time : 804 Session Stop Time : 846 Jaja Leonard, PT [facility] 10-29-2024 Telephone encounter Note 10/28/24, fax received from [facility] specialty pharmacy for patients Dara stating to contact Cynthia at . This nurse contacted Cynthia and was told that the PA would have to go through [employer] provided the number . But [facility] PA staff were unable to find the patient under their insurance ID or information. Patient contacted to confirm that the insurance information we have is correct and she confirmed that it was. 10/29/24 [facility] specialty pharmacy contacted and they stated that they also can not find the patients member ID in the system. Patient called and asked to double check her information with her insurance company to be sure. [facility] 10-29-2024 Miscellaneous Notes 10/28/24, fax received from [facility] specialty pharmacy for patients Dara stating to contact [employer] at . This nurse contacted [employer] and was told that the PA would have to go through [facility], [employer] provided the number . But [facility] PA staff were unable to find the patient under their insurance ID or information. Patient contacted to confirm that the insurance information we have is correct and she confirmed that it was. 10/29/24 [facility] specialty pharmacy contacted and they stated that they also can not find the patients member ID in the system. Patient called and asked to double check her information with her insurance company to be sure. documented in this encounter [facility] 10-24-2024 Telephone encounter Note Please change pharmacy to the appropriate [facility] specialty pharmacy. Sam Hankins MD [facility] 10-24-2024 Miscellaneous Notes Please change pharmacy to the appropriate [facility] specialty pharmacy. Sam Hankins MD Prescription Refill Information The patient has been identified by name and date of : Yes Caregiver verified no other encounters exist for this prescription request: Yes Caregiver confirmed with patient/requestor that no other refills are due, in the near future, with this provider at this time: Yes The last office visit in the department: 06/11/24 Does the patient have a future office visit with this provider/department: No Requested Prescriptions Pending Prescriptions Disp Refills tezepelumab-ekko (TEZSPIRE) 210 mg/1.91 mL (110 mg/mL) pen injector 1.91 mL 11 Sig: Inject 210 mg subcutaneously every 4 weeks. Preferred pharmacy doesn't carry Tezspire- [facility] is now preferred Alba Barrett RN October 24, 2024 1:20 PM documented in this encounter [facility] 10-24-2024 Telephone encounter Note Prescription Refill Information The patient has been identified by name and date of : Yes Caregiver verified no other encounters exist for this prescription request: Yes Caregiver confirmed with patient/requestor that no other refills are due, in the near future, with this provider at this time: Yes The last office visit in the department: 06/11/24 Does the patient have a future office visit with this provider/department: No Requested Prescriptions Pending Prescriptions Disp Refills tezepelumab-ekko (TEZSPIRE) 210 mg/1.91 mL (110 mg/mL) pen injector 1.91 mL 11 Sig: Inject 210 mg subcutaneously every 4 weeks. Preferred pharmacy doesn't carry Tezspire- [facility] is now preferred Alba Barrett RN October 24, 2024 1:20 PM [facility] 10-24-2024 Instructions Debbie Mustafa PA-C - 10/24/2024 9:54 AM EST Message office day after injection with response. Monitor symptoms over 2 week period following injection and message office about 2-3 weeks post injection with update Hip Joint Injection (arthrogram) under XR guidance The injection includes: Ropivacaine, a numbing medication similar to novacaine at the dentist this should provide some immediate relief of symptoms this will wear off later that same day or the next day AND Kenalog (cortisone, steroidal anti inflammatory) this typically takes 3-5 days to start to take effect. Maximum relief is expected 2 weeks out from the injection Duration of relief varies - average time is 3 months POST-INJECTION INSTRUCTIONS: 1. Do not exercise or over-use the involved area for the next 3-5 days 2. Temporary reactions that can be expected: (These do not occur in every patient.) --Facial flushing and warmth after a steroid injection --Mild to moderate pain and/or swelling at the site of the injection for the next 24 hours 3. Potential injection site changes (These do not occur in every patient.) -Skin depigmentation (lightening/ discoloration) more prominent in patients with darker complexion -Fat atrophy (dimpling of skin) - higher incidence in more superficial injections 4. If there is mild to moderate pain and/or swelling at the site of the injection: (Which may occur over the next 24 hours following the injection.) --Apply cold pack or ice to the area (on for 20 minutes, off for 40 minutes) --Do not leave cold pack on for more than 20 minutes at one time --Tylenol 500 mg 1 tablets every 6 hours as needed for pain (unless you have a Tylenol allergy) for the next 48 hours - Max 4000 mg - Ibuprofen or aleve per package instructions (unless you have allergy to anti inflammatories, decreased kidney function, stomach problems) for the next 48 hours 5. Call the physician office if you experience: --New redness at the site --New severe swelling at the site OR any new mild to moderate swelling at the site that does not go away after 48 hours --New severe pain at the site OR any new mild to moderate pain at the site that does not go away after 48 hours --Leakage of fluid from the site --Hives or rash --Fever or chills 6. Call 911 if you experience: --Chest pains --Shortness of breath --Lip, tongue or throat swelling documented in this encounter [facility] 10-24-2024 Note HNO ID: [id number] Author: DEBBIE MUSTAFA PA-C Service: ? Author Type: Physician Route Sales Associate Type: Progress Notes Filed: 10/24/2024 16:40 Note Text: DEPARTMENT OF ORTHOPAEDICS October 24, 2024 CC: left hip pain HPI: Bessie returns for left hip follow-up. Since our last visit September 19 she has been working with physical therapy. She reports significant improvement in her back pain with physical therapy as well as improvement in lower extremity numbness, now tips of toes only. She reports she is able to bend down and touch her toes and able to be more active with her kids. She continues to have constant deep left groin ache 2-3/10 increased with activity - needs to change positions frequently She denies interim injury or trauma. She is 10 months plus status post left hip arthroscopy with labral repair. PAIN EVALUATION 10/19/2024 1423 10/24/2024 0909 Pain Level: -- 4 Pain Location: Hip-Left Hip-Left Description: Aching;Dull;Radiating;Sore Aching Duration Amount of Time: 6 2 Duration Units: Weeks Weeks Frequency: Continuous Continuous Intervention/Comfort measure: Medication;Reposition;Relaxation;C old;Exercise;Heat;Massage;Position ing Cold;Heat;Medication Past Medical History: PAST MEDICAL HISTORY Diagnosis Date Acetabular labrum tear, left, initial encounter 09/14/2023 Acetabular labrum tear, unspecified laterality, subsequent encounter 09/14/2023 Asthma Constipation Diarrhea Dyspnea on exertion History of echocardiogram 05/13/2021 EF 60-65% RV systolic pressure 25mmHg R atrial pressure 3mmHg History of stress test 05/13/2021 no ischemic electrocardiogrpahic changes noted pt developed chest pressure ehich resolved in recovery phase average exercise capacity for age baseline htn with a normal BP response to exercise Tear of right acetabular labrum 12/14/2023 Family History: FAMILY HISTORY Problem Relation Age of Onset other (cerical cancer) Mother Asthma Sister Heart Maternal Grandmother Medications: albuterol (PROVENTIL) 2.5 mg /3 mL (0.083 %) nebulizer solution Use 3 mL via nebulizer every 4 hours as needed for wheezing/shortness of breath. albuterol HFA (PROVENTIL HFA, VENTOLIN HFA) 90 mcg/actuation inhaler Inhale 2 Puffs as instructed every 4 hours as needed for wheezing/shortness of breath. methocarbamol (ROBAXIN) 500 mg tablet Take 1-2 tablets at bedtime as needed for pain or muscle spasms biotin 5 mg tab Take 5 mg by mouth once daily. B.animalis,bifid,infantis,long (PROBIOTIC 4X ORAL) Take by mouth. TEZSPIRE 210 mg/1.91 mL (110 mg/mL) injection INJECT 1 PEN SUBCUTANEOUSLY EVERY 4 WEEKS fluticasone-salmeterol HFA (ADVAIR HFA) 230-21 mcg/actuation inhaler Inhale 2 Puffs as instructed two times a day. albuterol HFA (VENTOLIN HFA) 90 mcg/actuation inhaler Inhale 2 Puffs as instructed every 4 hours as needed for wheezing/shortness of breath (and before sexertion / exercise). fluticasone (FLONASE) 50 mcg/actuation nasal spray Use 2 Sprays in each nostril once daily. montelukast (SINGULAIR) 10 mg tablet TAKE 1 TABLET BY MOUTH DAILY AT BEDTIME azelastine 0.1% nasal spray Use 2 Sprays in each nostril two times a day as needed. ondansetron orally disintegrating (ZOFRAN ODT) 4 mg disintegrating tablet Take 1 tablet by mouth every 8 hours as needed for nausea/vomiting. PREDNISONE ORAL Take by mouth as needed. Burst fexofenadine (GM) 180 mg tablet Take 180 mg by mouth once daily as needed. cetirizine (ZYRTEC) 10 mg tablet Take 10 mg by mouth once daily. benzonatate (TESSALON PERLE) 100 mg capsule Take 1 capsule by mouth three times a day as needed for cough for up to 12 doses. (Patient not taking: Reported on 10/24/2024) famotidine (PEPCID) 20 mg tablet Take 1 tablet by mouth daily at bedtime. (Patient not taking: Reported on 09/15/2024) fluticasone-salmeterol HFA (ADVAIR) 230-21 mcg/actuation inhaler Inhale 2 Puffs as instructed two times a day. (Patient not taking: Reported on 08/04/2024) Allergies: ALLERGIES Allergen Reactions Clindamycin Rash, GI Upset Septra [Sulfamethox* Rash, GI Upset Physical Exam: Musculoskeletal Exam: Gait normal, Posture: erect and normal. Exam: Right Left Single Leg Trendelenburg Negative Equivocal Straight leg raise positive anterior groin pain at 70 degrees, relieved with bent knee Slump test negative Negative positive Hip flexion 195 95 - end range pain IR 20 20 ER 60 50 Anterior impingement negative positive Dynamic labral stress negative negative FAHAD negative positive Posterior Impingement negative Negative - anterior groin pain MILADYS N/t negative Strength Right Left Supine HF 5/5 5-/5 Upright HF 5/5 4+/5 Adduction 5/5 5/5 Abduction N/T 4+/5 Tenderness with Palpation: Left Greater Troch Negative Gluteus Medius Positive Piriformis Negative Review of Systems: GENERAL: No weight loss, malaise or fevers MUSCULOSKELETAL: See HPI Imaging: Non (more content not included)... [facility] 10-24-2024 History of Present illness Narrative Images from the original note were not included. DEPARTMENT OF ORTHOPAEDICS October 24, 2024 CC: left hip pain HPI: Bessie returns for left hip follow-up. Since our last visit September 19 she has been working with physical therapy. She reports significant improvement in her back pain with physical therapy as well as improvement in lower extremity numbness, now tips of toes only. She reports she is able to bend down and touch her toes and able to be more active with her kids. She continues to have constant deep left groin ache 2-3/10 increased with activity - needs to change positions frequently She denies interim injury or trauma. She is 10 months plus status post left hip arthroscopy with labral repair. PAIN EVALUATION 10/19/2024 1423 10/24/2024 0909 Pain Level: -- 4 Pain Location: Hip-Left Hip-Left Description: Aching;Dull;Radiating;Sore Aching Duration Amount of Time: 6 2 Duration Units: Weeks Weeks Frequency: Continuous Continuous Intervention/Comfort measure: Medication;Reposition;Relaxation;C old;Exercise;Heat;Massage;Position ing Cold;Heat;Medication Past Medical History: PAST MEDICAL HISTORY Diagnosis Date Acetabular labrum tear, left, initial encounter 09/14/2023 Acetabular labrum tear, unspecified laterality, subsequent encounter 09/14/2023 Asthma Constipation Diarrhea Dyspnea on exertion History of echocardiogram 05/13/2021 EF 60-65% RV systolic pressure 25mmHg R atrial pressure 3mmHg History of stress test 05/13/2021 no ischemic electrocardiogrpahic changes noted pt developed chest pressure ehich resolved in recovery phase average exercise capacity for age baseline htn with a normal BP response to exercise Tear of right acetabular labrum 12/14/2023 Family History: FAMILY HISTORY Problem Relation Age of Onset other (cerical cancer) Mother Asthma Sister Heart Maternal Grandmother Medications: albuterol (PROVENTIL) 2.5 mg /3 mL (0.083 %) nebulizer solution Use 3 mL via nebulizer every 4 hours as needed for wheezing/shortness of breath. albuterol HFA (PROVENTIL HFA, VENTOLIN HFA) 90 mcg/actuation inhaler Inhale 2 Puffs as instructed every 4 hours as needed for wheezing/shortness of breath. methocarbamol (ROBAXIN) 500 mg tablet Take 1-2 tablets at bedtime as needed for pain or muscle spasms biotin 5 mg tab Take 5 mg by mouth once daily. B.animalis,bifid,infantis,long (PROBIOTIC 4X ORAL) Take by mouth. TEZSPIRE 210 mg/1.91 mL (110 mg/mL) injection INJECT 1 PEN SUBCUTANEOUSLY EVERY 4 WEEKS fluticasone-salmeterol HFA (ADVAIR HFA) 230-21 mcg/actuation inhaler Inhale 2 Puffs as instructed two times a day. albuterol HFA (VENTOLIN HFA) 90 mcg/actuation inhaler Inhale 2 Puffs as instructed every 4 hours as needed for wheezing/shortness of breath (and before sexertion / exercise). fluticasone (FLONASE) 50 mcg/actuation nasal spray Use 2 Sprays in each nostril once daily. montelukast (SINGULAIR) 10 mg tablet TAKE 1 TABLET BY MOUTH DAILY AT BEDTIME azelastine 0.1% nasal spray Use 2 Sprays in each nostril two times a day as needed. ondansetron orally disintegrating (ZOFRAN ODT) 4 mg disintegrating tablet Take 1 tablet by mouth every 8 hours as needed for nausea/vomiting. PREDNISONE ORAL Take by mouth as needed. Burst fexofenadine (GM) 180 mg tablet Take 180 mg by mouth once daily as needed. cetirizine (ZYRTEC) 10 mg tablet Take 10 mg by mouth once daily. benzonatate (TESSALON PERLE) 100 mg capsule Take 1 capsule by mouth three times a day as needed for cough for up to 12 doses. (Patient not taking: Reported on 10/24/2024) famotidine (PEPCID) 20 mg tablet Take 1 tablet by mouth daily at bedtime. (Patient not taking: Reported on 09/15/2024) fluticasone-salmeterol HFA (ADVAIR) 230-21 mcg/actuation inhaler Inhale 2 Puffs as instructed two times a day. (Patient not taking: Reported on 08/04/2024) Allergies: ALLERGIES Allergen Reactions Clindamycin Rash, GI Upset Septra [Sulfamethox* Rash, GI Upset Physical Exam: Musculoskeletal Exam: Gait normal, Posture: erect and normal. Exam: Right Left Single Leg Trendelenburg Negative Equivocal Straight leg raise positive anterior groin pain at 70 degrees, relieved with bent knee Slump test negative Negative positive Hip flexion 195 95 - end range pain IR 20 20 ER 60 50 Anterior impingement negative positive Dynamic labral stress negative negative FAHAD negative positive Posterior Impingement negative Negative - anterior groin pain MILADYS N/t negative Strength Right Left Supine HF 5/5 5-/5 Upright HF 5/5 4+/5 Adduction 5/5 5/5 Abduction N/T 4+/5 Tenderness with Palpation: Left Greater Troch Negative Gluteus Medius Positive Piriformis Negative Review of Systems: GENERAL: No weight loss, malaise or fevers MUSCULOSKELETAL: See HPI Imaging: None Assessment: Left hip pain 10 months status post left hip arthroscopy Improving lumbar radiculopathy Plan: Discussed Likely spine and hip joint component to her pain. Discussed diagnostic/therapeutic left hip joint injection. Will have her continue with physical therapy focusing on lumbar as well as gluteal strengthening. She will monitor her response to the injection the day after injection and over the 2 weeks following injection. She will message the office with an update shortly after the injection and again 2 to 3 weeks postinjection. If limited relief from the injection would move forward with an MRI left hip versus lumbar spine. Follow up : As above. Debbie Mustafa PA-C This note was partially generated using [employer] voice recognition system, and there may be some incorrect words, spellings, and punctuation that were not noted in checking the note before saving. Orthopaedic Medical Decision Making (MDM) Complexity of problems: Stable chronic illness, Risk: Low risk of morbidity from testing/treatment, Level of MDM: Low (3) documented in this encounter [facility] 10-23-2024 Note HNO ID: [id number] Author: BERNARD ESTRADA MD Service: ? Author Type: Physician Type: Progress Notes Filed: 10/23/2024 11:21 Note Text: Bessie Solomon is a 39 year old female who presents for Bx of atypical nevus(see 09/15/24 note). Denies itching burning, drainage or bleeding from site(s). Patient denies any other skin disorders anywhere else on body. Last visit was: 09/15/24 Current Treatment: no See 09/15/24 note for past medical history/medications/allergy/social history Review of systems: Negative for malaise, significant weight loss and fever. Has no dermatologic or systemic symptoms not already mentioned OBJECTIVE: Well appearing White female with type 2 skin, who is alert, oriented and in no apparent distress Suspicious lesions noted on: A-L mid posterior lateral thigh(1.4 cm) Procedure: Side effect of Rx include pain, bleeding, and possible site infection discussed and wishes to proceed. After informed consent was obtained, and picture taken, ETOH for cleansing and 1% lidocaine with epinephrine for anesthetic, with sterile technique, shave excision of lesion A and aluminum chloride application. Antibiotic dressing is applied and wound care instructions provided. The procedure was well tolerated without complications. ASSESSMENT/PLAN: (D22.9) Atypical nevus (primary encounter diagnosis) Comment: lesion A Plan: SURGICAL PATHOLOGY Wound care instructions given by nurse. F/u after path [facility] 10-23-2024 History of Present illness Narrative Bessie Solomon is a 39 year old female who presents for Bx of atypical nevus(see 09/15/24 note). Denies itching burning, drainage or bleeding from site(s). Patient denies any other skin disorders anywhere else on body. Last visit was: 09/15/24 Current Treatment: no See 09/15/24 note for past medical history/medications/allergy/social history Review of systems: Negative for malaise, significant weight loss and fever. Has no dermatologic or systemic symptoms not already mentioned OBJECTIVE: Well appearing White female with type 2 skin, who is alert, oriented and in no apparent distress Suspicious lesions noted on: A-L mid posterior lateral thigh(1.4 cm) Procedure: Side effect of Rx include pain, bleeding, and possible site infection discussed and wishes to proceed. After informed consent was obtained, and picture taken, ETOH for cleansing and 1% lidocaine with epinephrine for anesthetic, with sterile technique, shave excision of lesion A and aluminum chloride application. Antibiotic dressing is applied and wound care instructions provided. The procedure was well tolerated without complications. ASSESSMENT/PLAN: (D22.9) Atypical nevus (primary encounter diagnosis) Comment: lesion A Plan: SURGICAL PATHOLOGY Wound care instructions given by nurse. F/u after path [employer] / SAFETY CHECKLIST Procedure to be Performed: Biopsy Sign In: A Moment of CARE was completed. Personnel directly involved with the procedure wore the appropriate PPE (Personal Protective Equipment). Patient/Surrogate Stated/Verified: PATIENT VERIFIED(optional for EMERGENT procedures): Patient name, Date of , Relevant allergies, and The intended procedure Time Out Communication: Intended patient and procedure match the source documents. Consent documented and matches the intended procedure. Correct side/site marked and visible. Medications required for procedure verified. Sign Out: SIGN OUT (optional for EMERGENT procedures): All specimen containers correctly labeled. Post-procedure follow-up management communicated and Plan of Care Visit completed when applicable. Krystle Gomez RN documented in this encounter [facility] 10-23-2024 Note HNO ID: [id number] Author: KRYSTLE GOMEZ RN Service: ? Author Type: Registered Nurse Type: Progress Notes Filed: 10/23/2024 11:21 Note Text: UNIVERSAL PROTOCOL / SAFETY CHECKLIST Procedure to be Performed: Biopsy Sign In: A Moment of CARE was completed. Personnel directly involved with the procedure wore the appropriate PPE (Personal Protective Equipment). Patient/Surrogate Stated/Verified: PATIENT VERIFIED(optional for EMERGENT procedures): Patient name, Date of , Relevant allergies, and The intended procedure Time Out Communication: Intended patient and procedure match the source documents. Consent documented and matches the intended procedure. Correct side/site marked and visible. Medications required for procedure verified. Sign Out: SIGN OUT (optional for EMERGENT procedures): All specimen containers correctly labeled. Post-procedure follow-up management communicated and Plan of Care Visit completed when applicable. Krystle Gomez RN [facility] 10-23-2024 Instructions Krystle Gomez RN - 10/23/2024 10:57 AM EST CARE OF BIOPSY SITE Starting 24 hours after the procedure: DAILY: Wash your hands with soap and water. 2. Cleanse the biopsy site with antibacterial soap. 3. Thoroughly dry the area and apply a small amount of Vaseline or Aquaphor to keep area greasy at all times (this prevents a scab from forming). 4. PLEASE DO NOT use polysporin, Bacitracin, triple antibiotic or similar ointments. 5. Place a small dressing or band-aid over the wound until the wound is healed. (Studies show that wounds heal better when covered with ointment and a dressing). If you have any questions or concerns, please contact the office at [phone]. documented in this encounter [facility] 10-17-2024 Note HNO ID: [id number] Author: ENRIQUE ALMONTE PT Service: ? Author Type: Physical Therapist Type: Progress Notes Filed: 10/17/2024 16:25 Note Text: Episode Visit Count: 1 Therapist That Will Accept/Oversee The Plan Of Care: Enrique Almonte Start of Care Date: 10/17/24 Onset Date: 09/03/24 (2 weeks before Mose[place]) Plan of Care Certification Date: 04/11/24 Next Certification Due Date: 06/06/24 Patient Identified by Name and Date of : Yes REHABILITATION AND SPORTS THERAPY PHYSICAL THERAPY EVALUATION PLAN OF CARE: Assessment: Bessie Solomon presents with diagnosis of L acetabular labrum tear and lumbar radiculopathy that interferes with stair negotiation, walking, standing, sitting, rising from a chair (sitting cross-legged on floor, figure 4 sitting, prolonged walking, sitting with hips flexed (propped on stool keeping hip more extended is better)) . The patient presents with impairments in gait, overall function, posture, range of motion, strength, and symptom management. PROMIS? (Patient-Reported Outcomes Measurement Information System) scores were reviewed and identified as a rehabilitation concern. Prognosis for therapy is Good due to: current objective clinical presentation, good overall health status, within-session changes, good support system/ coping skills Fair due to: chronic nature of impairments, limited tolerance to activity, clinical presentation . The patient will benefit from skilled therapy services to meet the goals established for this plan of care as noted below. Classification Pain Mechanism Classification: Neuropathic Low Back Pain Classification: Movement Control Goals for Episode of Care: established 10/17/24 [place] in home exercise program. Patient will decrease pain rating by 2 points to meet minimal clinical important difference for numeric pain rating scale. Patient will increase active ROM of L hip to symmetrical to allow pt to to improve postural alignment, to improve performance of ADLs, and to improve gait mechanics / gait pattern . Patient will increase flexibility of L SLR to 50-70 degrees and WNL to improve ability to maintain proper posture, improve mechanics, and decrease pain. Perform stair negotiation;walking;standing;sitti ng;rising from a chair; sitting cross-legged on floor, figure 4 sitting, prolonged walking, sitting with hips flexed (propped on stool keeping hip more extended is better) without pain. Improve postural awareness. Normal gait. Reciprocal stair negotiation. Independent in home exercises. Stand / Walk a full work day with less or no pain/symptoms. Sleep through night without pain/symptoms. Knowledgeable regarding prophylaxis. Patient Goals: Less pain. Time Frame for Goals and Treatment : 12/15/24 Planned Interventions, Frequency, and Duration: Current Frequency: 1x/week Duration: 8 weeks Total Number of Visits Planned: 8 Planned Treatment Interventions: Therapeutic exercise (27404), Neuromuscular re-education (23009), Manual therapy (07912), Self-prison management (24726), Patient/Family/Caregiver Education PLAN FOR NEXT VISIT: Assess response to exercise and manual techniques. Continue with extension based lumbar exercise. May continue with foam roller/manual techniques as needed, and progress hip exercise. Patient demonstrates good understanding of plan of care and treatment. The above goals and plan of care were discussed and agreed upon by patient/family. SUBJECTIVE: Pt states she was doing very well. Then 2 weeks before Mose[place] was in bridge pose and didn't feel right. Then next day had to call off work d/t pain in hip then into back. Chiropractor xrays told her herniated Lumbar disc. Back was better, but hip continued pain. Saw Debbie Mustafa started pain meds. Will follow up for possible MRI if no improvement. It's definitly not as severe as it was, but certain things feel just like when it was torn. Certain movements it pinches in groin. Noticing pain with sitting crosslegged on floor. End of work day is more painful. L hip joint clicks/pops with pain right after. Patient Goals: Less pain. 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 [facility] 10-17-2024 History of Present illness Narrative Images from the original note were not included. Episode Visit Count: 1 Therapist That Will Accept/Oversee The Plan Of Care: Enrique Almonte Start of Care Date: 10/17/24 Onset Date: 09/03/24 (2 weeks before ) Plan of Care Certification Date: 04/11/24 Next Certification Due Date: 06/06/24 Patient Identified by Name and Date of : Yes REHABILITATION AND SPORTS THERAPY PHYSICAL THERAPY EVALUATION PLAN OF CARE: Assessment: Bessie Solomon presents with diagnosis of L acetabular labrum tear and lumbar radiculopathy that interferes with stair negotiation, walking, standing, sitting, rising from a chair (sitting cross-legged on floor, figure 4 sitting, prolonged walking, sitting with hips flexed (propped on stool keeping hip more extended is better)) . The patient presents with impairments in gait, overall function, posture, range of motion, strength, and symptom management. PROMIS (Patient-Reported Outcomes Measurement Information System) scores were reviewed and identified as a rehabilitation concern. Prognosis for therapy is Good due to: current objective clinical presentation, good overall health status, within-session changes, good support system/ coping skills Fair due to: chronic nature of impairments, limited tolerance to activity, clinical presentation . The patient will benefit from skilled therapy services to meet the goals established for this plan of care as noted below. Classification Pain Mechanism Classification: Neuropathic Low Back Pain Classification: Movement Control Goals for Episode of Care: established 10/17/24 [place] in home exercise program. Patient will decrease pain rating by 2 points to meet minimal clinical important difference for numeric pain rating scale. Patient will increase active ROM of L hip to symmetrical to allow pt to to improve postural alignment, to improve performance of ADLs, and to improve gait mechanics / gait pattern . Patient will increase flexibility of L SLR to 50-70 degrees and WNL to improve ability to maintain proper posture, improve mechanics, and decrease pain. Perform stair negotiation;walking;standing;sitti ng;rising from a chair; sitting cross-legged on floor, figure 4 sitting, prolonged walking, sitting with hips flexed (propped on stool keeping hip more extended is better) without pain. Improve postural awareness. Normal gait. Reciprocal stair negotiation. Independent in home exercises. Stand / Walk a full work day with less or no pain/symptoms. Sleep through night without pain/symptoms. Knowledgeable regarding prophylaxis. Patient Goals: Less pain. Time Frame for Goals and Treatment : 12/15/24 Planned Interventions, Frequency, and Duration: Current Frequency: 1x/week Duration: 8 weeks Total Number of Visits Planned: 8 Planned Treatment Interventions: Therapeutic exercise (09026), Neuromuscular re-education (18871), Manual therapy (14131), Self-prison management (28419), Patient/Family/Caregiver Education PLAN FOR NEXT VISIT: Assess response to exercise and manual techniques. Continue with extension based lumbar exercise. May continue with foam roller/manual techniques as needed, and progress hip exercise. Patient demonstrates good understanding of plan of care and treatment. The above goals and plan of care were discussed and agreed upon by patient/family. SUBJECTIVE: Pt states she was doing very well. Then 2 weeks before [place] was in bridge pose and didn't feel right. Then next day had to call off work d/t pain in hip then into back. Chiropractor xrays told her herniated Lumbar disc. Back was better, but hip continued pain. Saw Debbie Mustafa started pain meds. Will follow up for possible MRI if no improvement. It's definitly not as severe as it was, but certain things feel just like when it was torn. Certain movements it pinches in groin. Noticing pain with sitting crosslegged on floor. End of work day is more painful. L hip joint clicks/pops with pain right after. Patient Goals: Less pain. 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 / Interests: hiking Home Environment Patient Lives With: Spouse Home Type: (only stairs for laundry) Intake Information: Prescription present Previous Treatment: Physical Therapy , Ice , Heat (camel stretches, planks, pressups) Spine History Sleeping Position: Side lying right, Supine (with pillow between legs, supine with legs elevated) Sleep Affected by Pain: Pain awakens (switches positions frequently through night) Pain: Pain Pain Level: 3 (was up to 5-6) Pain Location: Hip - Left, Low Back/Lumbar Spine - Left, Groin - Left (SI joint) Description: Aching, Numbness Frequency: Continuous Post Treatment Pain Post Treatment Pain Level: 3 Post Treatment Pain Location: Hip - Left PROMIS Scales 10/16/2024 09/09/2024 04/10/2024 Higher is Better Phys Func - T Score 38 (moderate dysfunction) 36 (moderate dysfunction) 43 (mild dysfunction) Phys Func - Percentile 12 8 24 Self-Eff Symptom - T Score 50 (Average) 52 (Average) Self-Eff Symptom - Percentile 50 58 Cognitve Function - T Score 62 (within normal limits) 09/09/2024 07/23/2021 Lower is Better Pain Interference - T Score 67 (moderate) 62 (moderate) Pain Interference - Percentile 4 12 T-scores: mean of general population = 50. 5 points is clinically meaningfully difference Percentiles provide an indication of how the patient's score ranks in relation to the general population. Higher percentile rankings indicate better function/quality of life. 50th percentile is the average of the general population and indicates half of respondents had a worse score. OBJECTIVE MEASURES WITH LEVEL OF FUNCTION: Spine Observations Spine Observations: symmetrical PSIS pelvic alignment L Lumbar Spine Palpation Tenderness: PSIS (posterior superior iliac spine) Lumbar Spine AROM Lumbar Flexion: (fingertips to distal tibias, tightness L lumbar through hamstring) Lumbar Extension: Normal Lumbar R Side-Bend: Normal Lumbar L Side-Bend: Normal Repeated Test Movements - Lumbar REIL - Symptoms During: decreases REIL - Symptoms After: better LE Flexibility Flexibility: Straight Leg Raise R SLR Flexibility: 90 deg L SLR Flexibility: 45 deg pinching L groin Joint Mobility - Hip Hip Joint Mobility Comments: pinching with ER on L Gait Gait Observation: Mild antalgic gait Vitals BP: (not assesssed today) Education: Education Learning Preferences: Demonstration, Explanation Barriers: None Learning/educational needs: Home exercise program, Plan of Care Education Provided: Yes, see treatment interventions for education provided Education Provided To: Patient Education Mode/Type: Demonstration, Explanation/Discussion, Literature/Printed Materials, Performance Response to Education/Teach Back: States/Identifies, Return Demonstration TREATMENT: PT Treatment Interventions: Therapeutic Exercise, Manual Therapy, Neuromuscular Re-Education Evaluation Therapeutic Exercise: 1: *Prone lying 2: *Prone press ups x 10 Skilled Intervention: Patient was educated in proper exercise technique and purpose for exercises. Skilled judgment was used in selection of appropriate interventions. Provided written instruction for home exercise program to facilitate proper performance and compliance. Correct performance of therapeutic exercises was facilitated with verbal and visual cuing. Patient education as noted. Manual Therapy: 1: Foam roller soft tissue mobs to L lumbar, gluteals, posterior and lateral hip with pt in prone lying Skilled Intervention: Manual skills to improve joint mobility, ROM, and decrease pain. Utilized anatomy knowledge of the therapist, and assessment of patient's response to intervention. Manual techniques were performed with clinical decision-making regarding amount of stretch, intensity of pressure and assessment of responses. Neuromuscular Re-Education: 1: Educated pt in lumbar spine anatomy and posture in relation to symptoms. Instructed in use of lumbar support in sitting and driving, and use of pillows for propping at night (supine, sidelying) for comfort. 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 Skilled Intervention: Education in sitting posture using a lumbar roll and slouch/correction for body awareness. Education in proprioceptive/kinesthetic awareness during sitting, standing, sleeping posture/position, work simulation activities, and dynamic activities. Education and demonstration for posture and positioning for pain management. Patient education as noted. Billing * Evaluation Low Complexity: 1 Unit Therapeutic Exercise Treatment Minutes: 20 Manual TherapyTreatment Minutes: 10 Skilled Treatment Time Minutes (timed and untimed codes): 48 Total Session Time (minutes): 48 Session Start Time : 0850 Session Stop Time : 09 Enrique Almonte PT documented in this encounter [facility] 10-15-2024 Telephone encounter Note Spoke with Ofelia Tripathi At [facility] ([phone]). Patients PA has been approved and she will have someone call the patient to walk them through the process of mail ordering and assist them with picking out a pharmacy. Per Ofelia pts preferred pharmacy is [facility] ([phone]). At this time [facility] stated they would handle getting the patient her medication. [facility] 10-15-2024 Miscellaneous Notes Spoke with Ofelia Tripathi At [facility] ([phone]). Patients PA has been approved and she will have someone call the patient to walk them through the process of mail ordering and assist them with picking out a pharmacy. Per Ofelia pts preferred pharmacy is [facility] ([phone]). At this time [facility] stated they would handle getting the patient her medication. Completed PA and faxed to [facility] with office notes and recent PFT's for review. Awaiting for response. PT changed insurance coverage at the beginning of the new year. PT's Dara needs to be re authorized under her new coverage. Per PT, her pharmacy sent over PA paperwork to the office yesterday. Please complete and send back. Call PT with questions. documented in this encounter [facility] 10-10-2024 Telephone encounter Note Patient phones requesting refills as follows: [facility] 12/20/23 Requested Prescriptions Pending Prescriptions Disp Refills albuterol (PROVENTIL) 2.5 mg /3 mL (0.083 %) nebulizer solution 360 mL 2 Sig: Use 3 mL via nebulizer every 4 hours as needed for wheezing/shortness of breath. albuterol HFA (PROVENTIL HFA, VENTOLIN HFA) 90 mcg/actuation inhaler 1 Each 5 Sig: Inhale 2 Puffs as instructed every 4 hours as needed for wheezing/shortness of breath. Please review and advise. Rubia Cheema LPN [facility] 10-10-2024 Miscellaneous Notes Patient phones requesting refills as follows: [facility] 12/20/23 Requested Prescriptions Pending Prescriptions Disp Refills albuterol (PROVENTIL) 2.5 mg /3 mL (0.083 %) nebulizer solution 360 mL 2 Sig: Use 3 mL via nebulizer every 4 hours as needed for wheezing/shortness of breath. albuterol HFA (PROVENTIL HFA, VENTOLIN HFA) 90 mcg/actuation inhaler 1 Each 5 Sig: Inhale 2 Puffs as instructed every 4 hours as needed for wheezing/shortness of breath. Please review and advise. Rubia Cheema LPN documented in this encounter [facility] 10-03-2024 Telephone encounter Note Completed PA and faxed to [facility] with office notes and recent PFT's for review. Awaiting for response. [facility] 10-03-2024 Telephone encounter Note PT changed insurance coverage at the beginning of the new year. PT's Dara needs to be re authorized under her new coverage. Per PT, her pharmacy sent over PA paperwork to the office yesterday. Please complete and send back. Call PT with questions. [facility] 09-30-2024 Telephone encounter Note Patient given results and verbalized understanding of instructions given. Enrique Brennan MA [facility] 09-30-2024 Miscellaneous Notes Patient given results and verbalized understanding of instructions given. Enrique Brennan MA Please call patient let her know she is positive for RSV. This is a virus. There is no treatment. Supportive care and tbfg-[id number] medications are recommended. Patient was negative for COVID and flu. documented in this encounter [facility] 09-30-2024 Telephone encounter Note Please call patient let her know she is positive for RSV. This is a virus. There is no treatment. Supportive care and umlp-[id number] medications are recommended. Patient was negative for COVID and flu. [facility] Work Phone: 09-29-2024 History of Present illness Narrative Radiology Service Progress Note PATIENT NAME: Bessie Solomon DATE OF SERVICE: September 29, 2024 TIME: 7:04 PM PATIENT IDENTITY VERIFICATION COMPLETED USING TWO (2) IDENTIFIERS: Name and Date of confirmed by patient verbally. FALL SCREENING: Has the patient had 2 falls in the last year or 1 fall with injury or currently using an Ambulatory Assistive Device (Walker, Cane, Wheelchair, Crutches, etc.)? No PATIENT GENDER DATA: Female. status: : No status: NO. PATIENT RELEVANT IMPLANT DATA REVIEWED: Not Applicable PATIENT PRESENTS WITH AN IMPLANTABLE OR ATTACHED INSTRUMENTATION DESIGNER: No RADIOLOGY DEPARTMENT: General X-ray: Exam(s) Completed: Chest X-Ray PERIPHERAL IV DATA: Not applicable SIGNED BY: TAYLOR Vega) September 29, 2024 7:04 PM documented in this encounter [facility] 09-29-2024 Note HNO ID: [id number] Author: CURTIS BEAR RT (R) Service: Radiology Author Type: Technologist Type: Progress Notes Filed: 09/29/2024 19:10 Note Text: Radiology Service Progress Note PATIENT NAME: Bessie Solomon DATE OF SERVICE: September 29, 2024 TIME: 7:04 PM PATIENT IDENTITY VERIFICATION COMPLETED USING TWO (2) IDENTIFIERS: Name and Date of confirmed by patient verbally. FALL SCREENING: Has the patient had 2 falls in the last year or 1 fall with injury or currently using an Ambulatory Assistive Device (Walker, Cane, Wheelchair, Crutches, etc.)? No PATIENT GENDER DATA: Female. status: : No status: NO. PATIENT RELEVANT IMPLANT DATA REVIEWED: Not Applicable PATIENT PRESENTS WITH AN IMPLANTABLE OR ATTACHED INSTRUMENTATION DESIGNER: No RADIOLOGY DEPARTMENT: General X-ray: Exam(s) Completed: Chest X-Ray PERIPHERAL IV DATA: Not applicable SIGNED BY: TAYLOR Vega) September 29, 2024 7:04 PM [facility] 09-29-2024 Note HNO ID: [id number] Author: OLLIE RIVERO APRN.BENY Service: ? Author Type: Nurse Practitioner Type: Progress Notes Filed: 09/29/2024 19:22 Note Text: This note was created using [employer]. Subjective Bessie Solomon is a 39 year old female. HPI Pt has had a cough and runny nose for the last three days. Review of Systems Constitutional: Positive for fever. HENT: Negative for sinus pressure and sinus pain. Respiratory: Positive for cough. Objective BP 144/90 Pulse 108 Temp 37.3 ?C (99.1 ?F) Resp 18 Wt 88.8 kg (195 lb 12.3 oz) LMP 09/04/2024 (Approximate) SpO2 99% BMI 32.58 kg/m? Physical Exam Vitals and nursing note reviewed. Constitutional: General: She is not in acute distress. Appearance: Normal appearance. She is not ill-appearing. HENT: Head: Normocephalic. Mouth/Throat: Mouth: Mucous membranes are moist. Eyes: Conjunctiva/sclera: Conjunctivae normal. Cardiovascular: Rate and Rhythm: Regular rhythm. Tachycardia present. Pulmonary: Effort: Pulmonary effort is normal. No respiratory distress. Breath sounds: Wheezing present. Comments: Persistent dry cough Musculoskeletal: General: Normal range of motion. Cervical back: Normal range of motion. Skin: General: Skin is warm and dry. Neurological: General: No focal deficit present. Mental Status: She is alert. Psychiatric: Mood and Affect: Mood normal. Behavior: Behavior normal. Assessment and Plan ASSESSMENT/PLAN: 1. Acute cough - ICD9: 786.2, ICD10: R05.1 X-ray of chest unremarkable. Patient given prescriptions for Tessalon Perles and prednisone. Patient does have history of asthma and has a rescue inhaler and a home nebulizer which she can use as needed. Per patient's request she was tested for influenza and COVID. She was concerned about possible RSV as they do have an 8-month-old grandchild. - BENZONATATE 100 MG CAPSULE - PREDNISONE 50 MG TABLET - COVID AND INFLUENZA A/B AND RSV PCR, ROUTINE - XR CHEST 2V FRONTAL/LAT Ollie Rivero APRN.WAREHOUSE REPRESENTATIVE [facility] 09-29-2024 History of Present illness Narrative This note was created using [employer]. Subjective Bessie Solomon is a 39 year old female. HPI Pt has had a cough and runny nose for the last three days. Review of Systems Constitutional: Positive for fever. HENT: Negative for sinus pressure and sinus pain. Respiratory: Positive for cough. Objective BP 144/90 Pulse 108 Temp 37.3 C (99.1 F) Resp 18 Wt 88.8 kg (195 lb 12.3 oz) LMP 09/04/2024 (Approximate) SpO2 99% BMI 32.58 kg/m Physical Exam Vitals and nursing note reviewed. Constitutional: General: She is not in acute distress. Appearance: Normal appearance. She is not ill-appearing. HENT: Head: Normocephalic. Mouth/Throat: Mouth: Mucous membranes are moist. Eyes: Conjunctiva/sclera: Conjunctivae normal. Cardiovascular: Rate and Rhythm: Regular rhythm. Tachycardia present. Pulmonary: Effort: Pulmonary effort is normal. No respiratory distress. Breath sounds: Wheezing present. Comments: Persistent dry cough Musculoskeletal: General: Normal range of motion. Cervical back: Normal range of motion. Skin: General: Skin is warm and dry. Neurological: General: No focal deficit present. Mental Status: She is alert. Psychiatric: Mood and Affect: Mood normal. Behavior: Behavior normal. Assessment and Plan ASSESSMENT/PLAN: 1. Acute cough - ICD9: 786.2, ICD10: R05.1 X-ray of chest unremarkable. Patient given prescriptions for Tessalon Perles and prednisone. Patient does have history of asthma and has a rescue inhaler and a home nebulizer which she can use as needed. Per patient's request she was tested for influenza and COVID. She was concerned about possible RSV as they do have an 8-month-old grandchild. - BENZONATATE 100 MG CAPSULE - PREDNISONE 50 MG TABLET - COVID & INFLUENZA A/B & RSV PCR, ROUTINE - XR CHEST 2V FRONTAL/LAT Ollie Rivero APRN.BENY documented in this encounter [facility] 09-19-2024 History of Present illness Narrative Radiology Service Progress Note PATIENT NAME: Bessie Solomon DATE OF SERVICE: September 19, 2024 TIME: 9:41 AM PATIENT IDENTITY VERIFICATION COMPLETED USING TWO (2) IDENTIFIERS: Name and Date of confirmed by patient verbally. FALL SCREENING: Has the patient had 2 falls in the last year or 1 fall with injury or currently using an Ambulatory Assistive Device (Walker, Cane, Wheelchair, Crutches, etc.)? No PATIENT GENDER DATA: Female. status: : No status: NO. PATIENT RELEVANT IMPLANT DATA REVIEWED: Not Applicable PATIENT PRESENTS WITH AN IMPLANTABLE OR ATTACHED INSTRUMENTATION DESIGNER: No RADIOLOGY DEPARTMENT: General X-ray: Exam(s) Completed: Pelvis X-Ray: Pelvis with Hip Left PERIPHERAL IV DATA: Not applicable SIGNED BY: RT Remigio(Alcon) September 19, 2024 9:41 AM documented in this encounter [facility] 09-19-2024 Note HNO ID: [id number] Author: JENNA SWANN RT(R) Service: ? Author Type: Technologist Type: Progress Notes Filed: 09/19/2024 09:41 Note Text: Radiology Service Progress Note PATIENT NAME: Bessie Solomon DATE OF SERVICE: September 19, 2024 TIME: 9:41 AM PATIENT IDENTITY VERIFICATION COMPLETED USING TWO (2) IDENTIFIERS: Name and Date of confirmed by patient verbally. FALL SCREENING: Has the patient had 2 falls in the last year or 1 fall with injury or currently using an Ambulatory Assistive Device (Walker, Cane, Wheelchair, Crutches, etc.)? No PATIENT GENDER DATA: Female. status: : No status: NO. PATIENT RELEVANT IMPLANT DATA REVIEWED: Not Applicable PATIENT PRESENTS WITH AN IMPLANTABLE OR ATTACHED INSTRUMENTATION DESIGNER: No RADIOLOGY DEPARTMENT: General X-ray: Exam(s) Completed: Pelvis X-Ray: Pelvis with Hip Left PERIPHERAL IV DATA: Not applicable SIGNED BY: RT Remigio(Alcon) September 19, 2024 9:41 AM [facility] 09-19-2024 Instructions Debbie Mustafa PA-C - 09/19/2024 9:24 AM EST Start Indomethacin 75 SR TWICE daily with a MEAL for 10 days - Decrease to once daily if 2nd dose upsets stomach - stop taking if single does stomach upset, headaches, swelling hands/ feet. Acetaminophen 500 mg 3 times daily Robaxin 500 mg Take 1-2 at bedtime as needed for pain or muscle spasm documented in this encounter [facility] 09-19-2024 Note HNO ID: [id number] Author: DEBBIE MUSTAFA PA-C Service: ? Author Type: Physician Route Sales Associate Type: Progress Notes Filed: 09/19/2024 17:28 Note Text: DEPARTMENT OF ORTHOPAEDICS September 19, 2024 CC: Left hip, low back pain HPI: Reports since her last visit in February with Dr. Partida her sciatic pain had cleared up by June and she was doing well Reports injuring her left hip/low back 2 weeks ago she reports she was in a bridge type position and pulled up into a more hyperextended bridge and then experienced a significant anterior groin pain 6 out of 10 originally anterior to posterior as well as some symptoms going down her leg. She reports that she has seen a chiropractor since this time and they were doing adjustments he did take some lumbar spine x-rays and advised that she had some bulging disks and felt that this was the reason for her pain and question why she had had any type of hip surgery previously. Reports that there was a leg length discrepancy and she has started wearing a heel lift on the left. She reports increased IBS symptoms and some bowel changes since this time which she had had prior to her original surgery for her hip. She has been performing some of the Calcaneal stretching which has decreased her pain to about a 3 out of 10 She reports an anterior sharp throbbing pain Sitting is the most aggravating position She has resumed using raised toilet seat Aggravating factors - prolonged sitting, prolonged standing - Pins/ needles down left leg Sitting Bowel changes - IBS - had issues previously - new onset of inability to feel if defecated Urinary urgency Used crutches Symptoms similar to prior to surgery Robaxin - took edge off PAIN EVALUATION 09/13/20242031 Pain Level: 3 Pain Location: Hip-Left Description: Aching;Numbness;Sore;Throbbing Duration Amount of Time: 2 Duration Units: Weeks Frequency: Continuous Intervention/Comfort measure: Reposition;Relaxation;Cold;Distrac tions;Exercise;Heat;Pillow support;Positioning Comments: it was 5/10-2 wks ago,now 12/01 Past Medical History: PAST MEDICAL HISTORY Diagnosis Date Acetabular labrum tear, left, initial encounter 09/14/2023 Acetabular labrum tear, unspecified laterality, subsequent encounter 09/14/2023 Asthma Constipation Diarrhea Dyspnea on exertion History of echocardiogram 05/13/2021 EF 60-65% RV systolic pressure 25mmHg R atrial pressure 3mmHg History of stress test 05/13/2021 no ischemic electrocardiogrpahic changes noted pt developed chest pressure ehich resolved in recovery phase average exercise capacity for age baseline htn with a normal BP response to exercise Tear of right acetabular labrum 12/14/2023 Family History: FAMILY HISTORY Problem Relation Age of Onset other (cerical cancer) Mother Asthma Sister Heart Maternal Grandmother Medications: biotin 5 mg tab Take 5 mg by mouth once daily. B.animalis,bifid,infantis,long (PROBIOTIC 4X ORAL) Take by mouth. TEZSPIRE 210 mg/1.91 mL (110 mg/mL) injection INJECT 1 PEN SUBCUTANEOUSLY EVERY 4 WEEKS famotidine (PEPCID) 20 mg tablet Take 1 tablet by mouth daily at bedtime. (Patient not taking: Reported on 09/15/2024) fluticasone-salmeterol HFA (ADVAIR HFA) 230-21 mcg/actuation inhaler Inhale 2 Puffs as instructed two times a day. albuterol (PROVENTIL) 2.5 mg /3 mL (0.083 %) nebulizer solution Use 3 mL via nebulizer every 4 hours as needed for wheezing/shortness of breath. albuterol HFA (VENTOLIN HFA) 90 mcg/actuation inhaler Inhale 2 Puffs as instructed every 4 hours as needed for wheezing/shortness of breath (and before sexertion / exercise). fluticasone (FLONASE) 50 mcg/actuation nasal spray Use 2 Sprays in each nostril once daily. fluticasone-salmeterol HFA (ADVAIR) 230-21 mcg/actuation inhaler Inhale 2 Puffs as instructed two times a day. (Patient not taking: Reported on 08/04/2024) montelukast (SINGULAIR) 10 mg tablet TAKE 1 TABLET BY MOUTH DAILY AT BEDTIME azelastine 0.1% nasal spray Use 2 Sprays in each nostril two times a day as needed. ondansetron orally disintegrating (ZOFRAN ODT) 4 mg disintegrating tablet Take 1 tablet by mouth every 8 hours as needed for nausea/vomiting. PREDNISONE ORAL Take by mouth as needed. Burst fexofenadine (GM) 180 mg tablet Take 180 mg by mouth once daily as needed. cetirizine (ZYRTEC) 10 mg tablet Take 10 mg by mouth once daily. Allergies: ALLERGIES Allergen Reactions Clindamycin Rash, GI Upset Septra [Sulfamethox* Rash, GI Upset Physical Exam: Musculoskeletal Exam: Gait antalgic, Posture: erect and normal. Exam: Lumbar flexion minimal with discomfort Lumbar extension decreased without pain Decreased lumbar lateral flexion and rotation Heel and toe walk intact Right Left Single Leg Trendelenburg Negative Negative Seated straight leg raise Negative Positive Supine straight leg raise Negative negative Hip flexion 100 100 (more content not included)... [facility] 09-19-2024 History of Present illness Narrative Images from the original note were not included. DEPARTMENT OF ORTHOPAEDICS September 19, 2024 CC: Left hip, low back pain HPI: Reports since her last visit in February with Dr. Partida her sciatic pain had cleared up by June and she was doing well Reports injuring her left hip/low back 2 weeks ago she reports she was in a bridge type position and pulled up into a more hyperextended bridge and then experienced a significant anterior groin pain 6 out of 10 originally anterior to posterior as well as some symptoms going down her leg. She reports that she has seen a chiropractor since this time and they were doing adjustments he did take some lumbar spine x-rays and advised that she had some bulging disks and felt that this was the reason for her pain and question why she had had any type of hip surgery previously. Reports that there was a leg length discrepancy and she has started wearing a heel lift on the left. She reports increased IBS symptoms and some bowel changes since this time which she had had prior to her original surgery for her hip. She has been performing some of the Calcaneal stretching which has decreased her pain to about a 3 out of 10 She reports an anterior sharp throbbing pain Sitting is the most aggravating position She has resumed using raised toilet seat Aggravating factors - prolonged sitting, prolonged standing - Pins/ needles down left leg Sitting Bowel changes - IBS - had issues previously - new onset of inability to feel if defecated Urinary urgency Used crutches Symptoms similar to prior to surgery Camila - took edge off PAIN EVALUATION 09/13/20242031 Pain Level: 3 Pain Location: Hip-Left Description: Aching;Numbness;Sore;Throbbing Duration Amount of Time: 2 Duration Units: Weeks Frequency: Continuous Intervention/Comfort measure: Reposition;Relaxation;Cold;Distrac tions;Exercise;Heat;Pillow support;Positioning Comments: it was 01/31-2 wks ago,now 12/01 Past Medical History: PAST MEDICAL HISTORY Diagnosis Date Acetabular labrum tear, left, initial encounter 09/14/2023 Acetabular labrum tear, unspecified laterality, subsequent encounter 09/14/2023 Asthma Constipation Diarrhea Dyspnea on exertion History of echocardiogram 05/13/2021 EF 60-65% RV systolic pressure 25mmHg R atrial pressure 3mmHg History of stress test 05/13/2021 no ischemic electrocardiogrpahic changes noted pt developed chest pressure ehich resolved in recovery phase average exercise capacity for age baseline htn with a normal BP response to exercise Tear of right acetabular labrum 12/14/2023 Family History: FAMILY HISTORY Problem Relation Age of Onset other (cerical cancer) Mother Asthma Sister Heart Maternal Grandmother Medications: biotin 5 mg tab Take 5 mg by mouth once daily. B.animalis,bifid,infantis,long (PROBIOTIC 4X ORAL) Take by mouth. TEZSPIRE 210 mg/1.91 mL (110 mg/mL) injection INJECT 1 PEN SUBCUTANEOUSLY EVERY 4 WEEKS famotidine (PEPCID) 20 mg tablet Take 1 tablet by mouth daily at bedtime. (Patient not taking: Reported on 09/15/2024) fluticasone-salmeterol HFA (ADVAIR HFA) 230-21 mcg/actuation inhaler Inhale 2 Puffs as instructed two times a day. albuterol (PROVENTIL) 2.5 mg /3 mL (0.083 %) nebulizer solution Use 3 mL via nebulizer every 4 hours as needed for wheezing/shortness of breath. albuterol HFA (VENTOLIN HFA) 90 mcg/actuation inhaler Inhale 2 Puffs as instructed every 4 hours as needed for wheezing/shortness of breath (and before sexertion / exercise). fluticasone (FLONASE) 50 mcg/actuation nasal spray Use 2 Sprays in each nostril once daily. fluticasone-salmeterol HFA (ADVAIR) 230-21 mcg/actuation inhaler Inhale 2 Puffs as instructed two times a day. (Patient not taking: Reported on 08/04/2024) montelukast (SINGULAIR) 10 mg tablet TAKE 1 TABLET BY MOUTH DAILY AT BEDTIME azelastine 0.1% nasal spray Use 2 Sprays in each nostril two times a day as needed. ondansetron orally disintegrating (ZOFRAN ODT) 4 mg disintegrating tablet Take 1 tablet by mouth every 8 hours as needed for nausea/vomiting. PREDNISONE ORAL Take by mouth as needed. Burst fexofenadine (GM) 180 mg tablet Take 180 mg by mouth once daily as needed. cetirizine (ZYRTEC) 10 mg tablet Take 10 mg by mouth once daily. Allergies: ALLERGIES Allergen Reactions Clindamycin Rash, GI Upset Septra [Sulfamethox* Rash, GI Upset Physical Exam: Musculoskeletal Exam: Gait antalgic, Posture: erect and normal. Exam: Lumbar flexion minimal with discomfort Lumbar extension decreased without pain Decreased lumbar lateral flexion and rotation Heel and toe walk intact Right Left Single Leg Trendelenburg Negative Negative Seated straight leg raise Negative Positive Supine straight leg raise Negative negative Hip flexion 100 100 IR 20 20 ER 60 60 Anterior impingement negative mild Dynamic labral stress Negative positive FAHAD negative Positive posterior pain Posterior Impingement negative negative MILADYS negative negative Strength Right Left Supine HF 5/5 5-/5 Upright HF 5/5 5/5 Adduction 5/5 5/5 Abduction 5/5 5-/5 Hip extension 5/5 5/5 Knee flexion 5/5 5/5 Knee extension 5/5 5/5 Ankle dorsiflexion 5/5 5 -/5 Ankle plantarflexion 5/5 5/5 Ankle inversion 5/5 5/5 Ankle eversion 5/5 5/5 EHL 5 /5 5 -/5 Toe flexion 5/5 5/5 Tenderness with Palpation: Right Left Greater Troch Negative Positive Gluteus Medius Negative Negative Piriformis Negative Negative Review of Systems: GENERAL: No weight loss, malaise or fevers MUSCULOSKELETAL: See HPI Imaging: AP pelvis, left hip standing false profile and To extended neck frog lateral views dated today reviewed and discussed no acute process, fracture or dislocation. Postsurgical changes of prior acetabuloplasty and femoroplasty. Maintained joint spaces. No evidence of heterotopic ossification Assessment: Left hip pain, status post left hip arthroscopy Lumbar radiculopathy Plan: Discussed Course of indomethacin 75 mg SR 1 tablet twice daily with a meal for 10 days Acetaminophen 500 mg 3 times daily over the next 5 days for pain Robaxin 500 mg 1 to 2 tablets at bedtime as needed for muscle spasms or pain Graduated physical therapy targeting lumbar spine Reviewed signs and symptoms that would require emergency department visit. Follow up : 3 to 4 weeks sooner if issues. Debbie Mustafa PA-C This note was partially generated using Spiracur voice recognition system, and there may be some incorrect words, spellings, and punctuation that were not noted in checking the note before saving. Orthopaedic Medical Decision Making (MDM) Complexity of problems: Chronic condition with exacerbation or progression, Complexity of data: Independent interpretation of imaging, 1 unique test results reviewed, Risk: Prescription drug management, Level of MDM: Moderate (4) documented in this encounter [facility] 09-16-2024 Note HNO ID: [id number] Author: JOSSIE GALVEZ LPN Service: ? Author Type: LICENSED NURSE Type: Progress Notes Filed: 09/16/2024 11:14 Note Text: Patient presents for Hepatitis B vaccine. Denies any problems at this time. Tolerated injection well. Jossie Galvez LPN [facility] 09-16-2024 History of Present illness Narrative Patient presents for Hepatitis B vaccine. Denies any problems at this time. Tolerated injection well. Jossie Galvez LPN documented in this encounter [facility] 09-15-2024 Note HNO ID: [id number] Author: BERNARD ESTRADA MD Service: ? Author Type: Physician Type: Progress Notes Filed: 09/15/2024 15:51 Note Text: Subjective Bessie Solomon is a 39-year-old W female presenting for evaluation of a lesion above the right naris and multiple moles. Bessie reports a persistent lesion above the right naris, which she has attempted to treat with [id number] wart treatments without success. Over the past year, the lesion has become increasingly pruritic and burning. She has a history of multiple warts in childhood, which were treated with cryotherapy. During a recent physical examination, her primary care provider noted multiple moles and recommended further evaluation. Bessie reports some of these moles are new, and a few on her back have changed significantly. One mole has appeared inflamed for the past 3 years. She has a family history of skin cancer, with her maternal grandfather having multiple cancerous lesions removed from his face. She has only used a tanning bed once and recalls a blistering sunburn in childhood. 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 Bessie also reports thinning hair(especially along top), which has worsened over time. She has been using Nioxin for the past year, noting that while her hair loss has not improved, it has not worsened. She has a family history of thinning hair on her father's side. She denies pruritus or flaking of the scalp. ROS:Constitutional: (+) weight loss Head: (+) hair thinning Skin: (+) pruritus and burning of skin lesion above right nostril, (+) multiple nevi (some changing), (+) lesion on back resembling angry zit for 3 years, (+) rosacea, (+) skin sensitivity (breakouts with certain products) Hematologic/Lymphatic: (+) easy bruising Objective Last menstrual period 05/21/2024. General: No acute distress. Suspicious lesions noted on: A-L mid posterior lateral thigh(1.3 cm) Skin: face w/ multiple fibrous papules; some hyperpigmented, noted preauricularly and anteriorly; lentigines observed; rosacea evident along cheeks; brown macules on left superior eyebrow; fibrous papules on right medial forehead and right lower eyelid; seborrheic keratoses on right lateral cheek; multiple congenital nevi on arms; tattoos on medial left forearm, right and left upper back, and mid-upper back; seborrheic keratoses on back; skin tags on back; hyperpigmented skin tags on left medial chest and epigastric region; striae in periumbilical region; intradermal nevi on right lateral upper breast; lesion on left mid-posterior lateral thigh. SKIN: A full skin exam was performed including the scalp, face, head and neck, chest, abdomen, flanks, back, buttocks, gluteal cleft and anus, perineum and groin, all four extremities, hands and feet. There were no other worrisome lesions noted. ASSESSMENT/PLAN: # Screening for malignant neoplasm of skin (Z12.83) - Conducted a thorough skin examination; no lesions suspicious for malignancy were identified. Sun protection reviewed. Recommend sunscreen with Zinc or Titanium daily and sun protective clothing. Use tinted screens w/ iron oxide(>3%). Reviewed ABCD's of changing moles, self skin exam. Return to clinic if any new or changing lesions noted. # Family history of malignant neoplasm of skin (Z80.8) - Maternal grandfather had multiple facial lesions excised, all reportedly cancerous. 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 - No signs of dysplasia or malignancy noted. # Fibrous papule of face (D23.30) - Multiple fibrous papules identified on the face, including a 5 mm hyperpigmented papule preauricularly and a 4 mm papule on the right medial forehead. - Discussed cosmetic removal options, including potential for scarring. # Rosacea (L71.9) - Erythema and telangiectasia noted on the cheeks. - Patient has ocular rosacea as diagnosed by an automatic dry starch operator. - Discussed topical treatments; patient declined due to cost. # Seborrheic keratosis (L82.1) - Multiple seborrheic keratoses identified on the right lateral cheek and back. - No treatment necessary unless symptomatic or for cosmetic reasons. 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 - No signs of malignancy. # Striae atrophicae (L90.6) - Moderate striae observed in the periumbilical region. - No treatment necessary. # Extensive tattoos (L81.8) - Multiple tattoos noted on the upper back and forearms. - No issues related to tattoos observed. # Atypical nevus (D22.9) -L mid posterior thigh; r/o moderate atypia - Scheduled for a shave biopsy of a mildly concerning lesion on the left mid-posterior lateral thigh on October 23. Bernard Estrada MD Family [facility]/dermatology [facility] 09-15-2024 History of Present illness Narrative Subjective Bessie Solomno is a 39-year-old W female presenting for evaluation of a lesion above the right naris and multiple moles. Bessie reports a persistent lesion above the right naris, which she has attempted to treat with [id number] wart treatments without success. Over the past year, the lesion has become increasingly pruritic and burning. She has a history of multiple warts in childhood, which were treated with cryotherapy. During a recent physical examination, her primary care provider noted multiple moles and recommended further evaluation. Bessie reports some of these moles are new, and a few on her back have changed significantly. One mole has appeared inflamed for the past 3 years. She has a family history of skin cancer, with her maternal grandfather having multiple cancerous lesions removed from his face. She has only used a tanning bed once and recalls a blistering sunburn in childhood. 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 Bessie also reports thinning hair(especially along top), which has worsened over time. She has been using Nioxin for the past year, noting that while her hair loss has not improved, it has not worsened. She has a family history of thinning hair on her father's side. She denies pruritus or flaking of the scalp. ROS:Constitutional: (+) weight loss Head: (+) hair thinning Skin: (+) pruritus and burning of skin lesion above right nostril, (+) multiple nevi (some changing), (+) lesion on back resembling angry zit for 3 years, (+) rosacea, (+) skin sensitivity (breakouts with certain products) Hematologic/Lymphatic: (+) easy bruising Objective Last menstrual period 05/21/2024. General: No acute distress. Suspicious lesions noted on: A-L mid posterior lateral thigh(1.3 cm) Skin: face w/ multiple fibrous papules; some hyperpigmented, noted preauricularly and anteriorly; lentigines observed; rosacea evident along cheeks; brown macules on left superior eyebrow; fibrous papules on right medial forehead and right lower eyelid; seborrheic keratoses on right lateral cheek; multiple congenital nevi on arms; tattoos on medial left forearm, right and left upper back, and mid-upper back; seborrheic keratoses on back; skin tags on back; hyperpigmented skin tags on left medial chest and epigastric region; striae in periumbilical region; intradermal nevi on right lateral upper breast; lesion on left mid-posterior lateral thigh. SKIN: A full skin exam was performed including the scalp, face, head and neck, chest, abdomen, flanks, back, buttocks, gluteal cleft and anus, perineum and groin, all four extremities, hands and feet. There were no other worrisome lesions noted. ASSESSMENT/PLAN: # Screening for malignant neoplasm of skin (Z12.83) - Conducted a thorough skin examination; no lesions suspicious for malignancy were identified. Sun protection reviewed. Recommend sunscreen with Zinc or Titanium daily and sun protective clothing. Use tinted screens w/ iron oxide(>3%). Reviewed ABCD's of changing moles, self skin exam. Return to clinic if any new or changing lesions noted. # Family history of malignant neoplasm of skin (Z80.8) - Maternal grandfather had multiple facial lesions excised, all reportedly cancerous. 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 - No signs of dysplasia or malignancy noted. # Fibrous papule of face (D23.30) - Multiple fibrous papules identified on the face, including a 5 mm hyperpigmented papule preauricularly and a 4 mm papule on the right medial forehead. - Discussed cosmetic removal options, including potential for scarring. # Rosacea (L71.9) - Erythema and telangiectasia noted on the cheeks. - Patient has ocular rosacea as diagnosed by an automatic dry starch operator. - Discussed topical treatments; patient declined due to cost. # Seborrheic keratosis (L82.1) - Multiple seborrheic keratoses identified on the right lateral cheek and back. - No treatment necessary unless symptomatic or for cosmetic reasons. 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 - No signs of malignancy. # Striae atrophicae (L90.6) - Moderate striae observed in the periumbilical region. - No treatment necessary. # Extensive tattoos (L81.8) - Multiple tattoos noted on the upper back and forearms. - No issues related to tattoos observed. # Atypical nevus (D22.9) -L mid posterior thigh; r/o moderate atypia - Scheduled for a shave biopsy of a mildly concerning lesion on the left mid-posterior lateral thigh on October 23. Bernard Estrada MD Family Med/dermatology documented in this encounter [facility] 09-15-2024 Note HNO ID: [id number] Author: JENNIFFER CHIU MD Service: ? Author Type: Physician Type: Progress Notes Filed: 09/15/2024 11:26 Note Text: [facility] Initial Clinic Visit Note CONSULTING PROVIDER: Dariusz Ward APRN. CNP Referred for: TSH elevation My final recommendations will be communicated back to the requesting provider by way of shared Medical record or a letter via [place] mail Subjective: Bessie Solomon is a 39 year old female presenting after referral from her PCP for TSH elevation. She also underwent Thyroid US before this visit Patient never had any thyroid issue or was on thyroid medications in the past General symptoms reported today: Fatigue: Yes, for a long time Menstrual irregularities: No Change in bowel habits: No Temperature intolerance: cold intolerance Stretch goyal from , wide enough, pale/skin color, reports sometimes they appear angry No hx of smoking, no hx of radiation FH: paternal uncle paternal aunt had thyroid cancer, followed by thyroid surgery and [facility]. Other paternal aunt thyroid issue REVIEW OF SYSTEMS: 10 point ROS was reviewed and negative unless indicated in the HPI ALLERGIES: ALLERGIES Allergen Reactions Clindamycin Rash, GI Upset Septra [Sulfamethox* Rash, GI Upset MEDICATIONS: Current Outpatient Medications on File Prior to Visit Medication Sig biotin 5 mg tab Take 5 mg by mouth once daily. B.animalis,bifid,infantis,long (PROBIOTIC 4X ORAL) Take by mouth. TEZSPIRE 210 mg/1.91 mL (110 mg/mL) injection INJECT 1 PEN SUBCUTANEOUSLY EVERY 4 WEEKS fluticasone-salmeterol HFA (ADVAIR HFA) 230-21 mcg/actuation inhaler Inhale 2 Puffs as instructed two times a day. albuterol (PROVENTIL) 2.5 mg /3 mL (0.083 %) nebulizer solution Use 3 mL via nebulizer every 4 hours as needed for wheezing/shortness of breath. albuterol HFA (VENTOLIN HFA) 90 mcg/actuation inhaler Inhale 2 Puffs as instructed every 4 hours as needed for wheezing/shortness of breath (and before sexertion / exercise). fluticasone (FLONASE) 50 mcg/actuation nasal spray Use 2 Sprays in each nostril once daily. montelukast (SINGULAIR) 10 mg tablet TAKE 1 TABLET BY MOUTH DAILY AT BEDTIME azelastine 0.1% nasal spray Use 2 Sprays in each nostril two times a day as needed. ondansetron orally disintegrating (ZOFRAN ODT) 4 mg disintegrating tablet Take 1 tablet by mouth every 8 hours as needed for nausea/vomiting. PREDNISONE ORAL Take by mouth as needed. Burst fexofenadine (GM) 180 mg tablet Take 180 mg by mouth once daily as needed. cetirizine (ZYRTEC) 10 mg tablet Take 10 mg by mouth once daily. famotidine (PEPCID) 20 mg tablet Take 1 tablet by mouth daily at bedtime. (Patient not taking: Reported on 09/15/2024) ofloxacin (OCUFLOX) 0.3 % ophthalmic solution Use 1 Drop in the right eye four times daily. (Patient not taking: Reported on 08/04/2024) keTORolac (ACULAR) 0.5 % ophthalmic solution Use 1 Drop in both eyes four times daily. (Patient not taking: Reported on 08/04/2024) fluticasone-salmeterol HFA (ADVAIR) 230-21 mcg/actuation inhaler Inhale 2 Puffs as instructed two times a day. (Patient not taking: Reported on 08/04/2024) No current facility-administered medications on file prior to visit. PAST MEDICAL HISTORY: PAST MEDICAL HISTORY Diagnosis Date Acetabular labrum tear, left, initial encounter 09/14/2023 Acetabular labrum tear, unspecified laterality, subsequent encounter 09/14/2023 Asthma Constipation Diarrhea Dyspnea on exertion History of echocardiogram 05/13/2021 EF 60-65% RV systolic pressure 25mmHg R atrial pressure 3mmHg History of stress test 05/13/2021 no ischemic electrocardiogrpahic changes noted pt developed chest pressure ehich resolved in recovery phase average exercise capacity for age baseline htn with a normal BP response to exercise Tear of right acetabular labrum 12/14/2023 PAST SURGICAL HISTORY: PAST SURGICAL HISTORY Procedure Laterality Date ABDOMINAL SURGERY HX APPENDECTOMY CHOLECYSTECTOMY 09/24/2002 Cholecystectomy COLONOSCOPY 07/23/2023 EGD 07/23/2023 LAPS ABD PRTMANDOMENTUM DX W/WO SPEC BR/WA SPX 11/22/2008 Laparoscopy and DANDC OPEN HIP LABRAL REPAIR (COMP 75625) Left 12/13/2023 OPEN HIP LABRAL REPAIR (COMP [id number]) Right 11/01/2023 FAMILY HISTORY: FAMILY HISTORY Problem Relation Age of Onset other (cerical cancer) Mother Asthma Sister Heart Maternal Grandmother SOCIAL HISTORY: Social History Tobacco Use Smoking status: Never Passive exposure: Never Smokeless tobacco: Never Vaping Use Vaping status: Never Used Substance Use Topics Alcohol use: Not Currently Drug use: Not Currently Types: Marijuana PHYSICAL EXAM: Pulse 72 Temp 37.1 ?C (98.8 ?F) (Temporal Artery) Ht 165.1 cm (5' 5) Wt 84 kg (185 lb 3.2 oz) LMP 09/04/2024 (Approximate) SpO2 100% BMI 30.82 kg/m? Last 3 Encounter Wt Readings: Date: Wt: 09/15 (more content not included)... [facility] 12-23-2024 History of Present illness Narrative [facility] Initial Clinic Visit Note CONSULTING PROVIDER: Dariusz Ward APRN. WAREHOUSE REPRESENTATIVE Referred for: TSH elevation My final recommendations will be communicated back to the requesting provider by way of shared Medical record or a letter via [place] mail Subjective: Bessie Solomon is a 39 year old female presenting after referral from her PCP for TSH elevation. She also underwent Thyroid US before this visit Patient never had any thyroid issue or was on thyroid medications in the past General symptoms reported today: Fatigue: Yes, for a long time Menstrual irregularities: No Change in bowel habits: No Temperature intolerance: cold intolerance Stretch goyal from , wide enough, pale/skin color, reports sometimes they appear angry No hx of smoking, no hx of radiation FH: paternal uncle paternal aunt had thyroid cancer, followed by thyroid surgery and DENNEY. Other paternal aunt thyroid issue REVIEW OF SYSTEMS: 10 point ROS was reviewed and negative unless indicated in the HPI ALLERGIES: ALLERGIES Allergen Reactions Clindamycin Rash, GI Upset Septra [Sulfamethox* Rash, GI Upset MEDICATIONS: Current Outpatient Medications on File Prior to Visit Medication Sig biotin 5 mg tab Take 5 mg by mouth once daily. B.animalis,bifid,infantis,long (PROBIOTIC 4X ORAL) Take by mouth. TEZSPIRE 210 mg/1.91 mL (110 mg/mL) injection INJECT 1 PEN SUBCUTANEOUSLY EVERY 4 WEEKS fluticasone-salmeterol HFA (ADVAIR HFA) 230-21 mcg/actuation inhaler Inhale 2 Puffs as instructed two times a day. albuterol (PROVENTIL) 2.5 mg /3 mL (0.083 %) nebulizer solution Use 3 mL via nebulizer every 4 hours as needed for wheezing/shortness of breath. albuterol HFA (VENTOLIN HFA) 90 mcg/actuation inhaler Inhale 2 Puffs as instructed every 4 hours as needed for wheezing/shortness of breath (and before sexertion / exercise). fluticasone (FLONASE) 50 mcg/actuation nasal spray Use 2 Sprays in each nostril once daily. montelukast (SINGULAIR) 10 mg tablet TAKE 1 TABLET BY MOUTH DAILY AT BEDTIME azelastine 0.1% nasal spray Use 2 Sprays in each nostril two times a day as needed. ondansetron orally disintegrating (ZOFRAN ODT) 4 mg disintegrating tablet Take 1 tablet by mouth every 8 hours as needed for nausea/vomiting. PREDNISONE ORAL Take by mouth as needed. Burst fexofenadine (GM) 180 mg tablet Take 180 mg by mouth once daily as needed. cetirizine (ZYRTEC) 10 mg tablet Take 10 mg by mouth once daily. famotidine (PEPCID) 20 mg tablet Take 1 tablet by mouth daily at bedtime. (Patient not taking: Reported on 09/15/2024) ofloxacin (OCUFLOX) 0.3 % ophthalmic solution Use 1 Drop in the right eye four times daily. (Patient not taking: Reported on 08/04/2024) keTORolac (ACULAR) 0.5 % ophthalmic solution Use 1 Drop in both eyes four times daily. (Patient not taking: Reported on 08/04/2024) fluticasone-salmeterol HFA (ADVAIR) 230-21 mcg/actuation inhaler Inhale 2 Puffs as instructed two times a day. (Patient not taking: Reported on 08/04/2024) No current facility-administered medications on file prior to visit. PAST MEDICAL HISTORY: PAST MEDICAL HISTORY Diagnosis Date Acetabular labrum tear, left, initial encounter 09/14/2023 Acetabular labrum tear, unspecified laterality, subsequent encounter 09/14/2023 Asthma Constipation Diarrhea Dyspnea on exertion History of echocardiogram 05/13/2021 EF 60-65% RV systolic pressure 25mmHg R atrial pressure 3mmHg History of stress test 05/13/2021 no ischemic electrocardiogrpahic changes noted pt developed chest pressure ehich resolved in recovery phase average exercise capacity for age baseline htn with a normal BP response to exercise Tear of right acetabular labrum 12/14/2023 PAST SURGICAL HISTORY: PAST SURGICAL HISTORY Procedure Laterality Date ABDOMINAL SURGERY HX APPENDECTOMY CHOLECYSTECTOMY 09/24/2002 Cholecystectomy COLONOSCOPY 07/23/2023 EGD 07/23/2023 LAPS ABD PRTM&OMENTUM DX W/WO SPEC BR/WA SPX 11/22/2008 Laparoscopy and D&C OPEN HIP LABRAL REPAIR (COMP 03502) Left 12/13/2023 OPEN HIP LABRAL REPAIR (COMP 74096) Right 11/01/2023 FAMILY HISTORY: FAMILY HISTORY Problem Relation Age of Onset other (cerical cancer) Mother Asthma Sister Heart Maternal Grandmother SOCIAL HISTORY: Social History Tobacco Use Smoking status: Never Passive exposure: Never Smokeless tobacco: Never Vaping Use Vaping status: Never Used Substance Use Topics Alcohol use: Not Currently Drug use: Not Currently Types: Marijuana PHYSICAL EXAM: Pulse 72 Temp 37.1 C (98.8 F) (Temporal Artery) Ht 165.1 cm (5' 5) Wt 84 kg (185 lb 3.2 oz) LMP 09/04/2024 (Approximate) SpO2 100% BMI 30.82 kg/m Last 3 Encounter Wt Readings: Date: Wt: 09/15/2024 84 kg (185 lb 3.2 oz) 08/04/2024 84.6 kg (186 lb 8.2 oz) 07/18/2024 85.3 kg (188 lb 0.8 oz) General: Alert and oriented x3, no acute distress Eyes: Anicteric sclera. Extraocular movements are intact. Neck supple, no cervical lymphadenopathy Thyroid: normal size, normal texture, no palpable nodules Lungs: Breathing unlabored Heart regular rate and rhythm Musculoskeletal: Muscular strength intact, No joint swelling, deformity, or tenderness Neuro: Gait normal. Abdomen: has wide pale stretch goyal from Extremities: without edema, no deformities Skin: no rashes/ erythema LAB: TSH Date Value Ref Range Status 07/18/2024 2.940 0.270 - 4.200 mIU/L Final Comment: If the patient is , TSH reference range varies by gestational period: First Trimester (weeks 9-12): 0.180-2.990 mIU/L Second Trimester: 0.110-3.980 mIU/L Third Trimester: 0.480-4.710 mIU/L Warren Rodarte et al. A Practical Approach for the Verifications and Determination of Site- and Trimester-Specific Reference Intervals for Thyroid Function tests in . Thyroid, 2019:29:3:412-420. Henri E, et al. 2017 Guidelines of the [place] [employer] for the Diagnosis and Management of Thyroid Disease during and the . Thyroid, 2017:27:3:315-389. Free T4 Date Value Ref Range Status 06/16/2023 1.0 0.9 - 1.7 ng/dL Final Latest Reference Range & Units 07/29/18 11:22 04/08/21 09:25 06/16/23 08:55 07/18/24 15:14 08/04/24 16:59 Free T4 0.9 - 1.7 ng/dL 1.2 1.0 TSH 0.270 - 4.200 mIU/L 1.430 1.920 2.150 2.940 Free T3 2.3 - 4.1 pg/mL 2.6 THYROID PEROXIDASE ANTIBODY <5.6 IU/mL <3.0 Thyroid US: 07/25/2024 RESULT: Right Lobe: 4.5 x 1.2 x 1.6 cm; homogeneous echogenicity, increased vascular flow on color Doppler imaging. Left Lobe: 4.3 x 1.1 x 1.6 cm; homogeneous echogenicity, increased vascular flow on color Doppler imaging. Isthmus: 0.3 cm The most suspicious thyroid nodule(s) (up to four) as below: NODULE 1: Location: Right upper pole Size: 1.3 x 1.0 x 1.0 cm Characteristics: Composition: Solid or almost completely solid, 2 points Echogenicity: Isoechoic, 1 point Shape: [id number], 0 points Margin: Smooth, 0 points Echogenic foci (add points for all that apply): None, 0 points Internal vascularity: present Interval growth: No prior available for comparison TI-RADS Category: TR3 ACR Recommendation: TI-RADS 3 nodule. No FNA or further imaging is advised. ASSESSMENT/PLAN: Normal thyroid labs: I discussed with her that TSH was never elevated, and has always been within normal limits, which she agrees to. TSH is trending up was a concern as per Ebrry result management note- but the hormones are still within normal, and does not indicate thyroid being reason for her symptoms Reassurance given She can continue to follow up with PCP, to have her thyroid checked, if and when needed, only if symptoms are different from now. Standing orders (as visible on her chart) with normal thyroid labs and with not being on medication, with no change in symptoms is not beneficial Thyroid nodule: Incidentally found on ultrasound done for unclear reasons Risk factors include family hx of thyroid cancer. Given characteristics and size of the nodule, no intervention or follow up needed at this time. Advised repeat thyroid ultrasound only if she notices any swelling of the neck by herself Medical Decision Making: Problems: Moderate: New problem with uncertain prognosis Data: Unique test result(s) reviewed: 3+ Medical Decision Making Level: 4 - Moderate Jenniffer Chiu MD Endocrinology Associate Staff [facility] Endocrinology and Metabolism [place] [phone] documented in this encounter [facility] 09-08-2024 Telephone encounter Note Prescription Refill Information The patient has been identified by name and date of : Yes Caregiver verified no other encounters exist for this prescription request: Yes Caregiver confirmed with patient/requestor that no other refills are due, in the near future, with this provider at this time: Yes The last office visit in the department: 06/11/24 Does the patient have a future office visit with this provider/department: No Requested Prescriptions Pending Prescriptions Disp Refills tezepelumab-ekko (TEZSPIRE) 210 mg/1.91 mL (110 mg/mL) injection [Pharmacy Med Name: TEZSPIRE PEN 210MG/1.91ML (110MG/ML)] 1.91 mL 11 Sig: INJECT 1 PEN SUBCUTANEOUSLY EVERY 4 WEEKS Alba Barrett RN September 08, 2024 7:52 AM [facility] 09-08-2024 Miscellaneous Notes Prescription Refill Information The patient has been identified by name and date of : Yes Caregiver verified no other encounters exist for this prescription request: Yes Caregiver confirmed with patient/requestor that no other refills are due, in the near future, with this provider at this time: Yes The last office visit in the department: 06/11/24 Does the patient have a future office visit with this provider/department: No Requested Prescriptions Pending Prescriptions Disp Refills tezepelumab-ekko (TEZSPIRE) 210 mg/1.91 mL (110 mg/mL) injection [Pharmacy Med Name: TEZSPIRE PEN 210MG/1.91ML (110MG/ML)] 1.91 mL 11 Sig: INJECT 1 PEN SUBCUTANEOUSLY EVERY 4 WEEKS Alba Barrett RN September 08, 2024 7:52 AM documented in this encounter [facility] 09-01-2024 History of Present illness Narrative Radiology Service Progress Note DATE OF SERVICE: September 01, 2024 TIME: 2:22 PM PATIENT IDENTITY VERIFICATION COMPLETED USING TWO (2) STANDARD IDENTIFIERS: Name and Date of confirmed by patient verbally. FALL SCREENING: Has the patient had 2 falls in the last year or 1 fall with injury or currently using an Ambulatory Assistive Device (Walker, Cane, Wheelchair, Crutches, etc.)? No PATIENT GENDER DATA: Female. status: : No status: NO. PATIENT RELEVANT IMPLANT DATA REVIEWED: Yes PATIENT PRESENTS WITH AN IMPLANTABLE OR ATTACHED INSTRUMENTATION DESIGNER: No ALLERGIES: Reviewed and unchanged CONTRAST ALLERGY: NO. EXAM: MRI - CONTRAST TYPE: GROUP II PERIPHERAL IV DATA: Ambulatory: A peripheral IV was started in the Right antecubital site with a Angio cath: 22 gauge. RADIOLOGY DEPARTMENT: MR; Exam(s) Completed: Head: Routine Brain SIGNATURE: RT Danilo(R) PATIENT NAME: Bessie Solomon DATE: September 01, 2024 TIME: 2:22 PM documented in this encounter [facility] 09-01-2024 Note HNO ID: [id number] Author: CHIDI KENNEY RT(R) Service: ? Author Type: Technologist Type: Progress Notes Filed: 09/01/2024 14:23 Note Text: Radiology Service Progress Note DATE OF SERVICE: September 01, 2024 TIME: 2:22 PM PATIENT IDENTITY VERIFICATION COMPLETED USING TWO (2) STANDARD IDENTIFIERS: Name and Date of confirmed by patient verbally. FALL SCREENING: Has the patient had 2 falls in the last year or 1 fall with injury or currently using an Ambulatory Assistive Device (Walker, Cane, Wheelchair, Crutches, etc.)? No PATIENT GENDER DATA: Female. status: : No status: NO. PATIENT RELEVANT IMPLANT DATA REVIEWED: Yes PATIENT PRESENTS WITH AN IMPLANTABLE OR ATTACHED INSTRUMENTATION DESIGNER: No ALLERGIES: Reviewed and unchanged CONTRAST ALLERGY: NO. EXAM: MRI - CONTRAST TYPE: GROUP II PERIPHERAL IV DATA: Ambulatory: A peripheral IV was started in the Right antecubital site with a Angio cath: 22 gauge. RADIOLOGY DEPARTMENT: MR; Exam(s) Completed: Head: Routine Brain SIGNATURE: Chidi Rodriguez Chandni Kenney, RT(R) PATIENT NAME: Bessie Solomon DATE: September 01, 2024 TIME: 2:22 PM [facility] 08-28-2024 Telephone encounter Note Upcoming MR on 09.01.24 See 08.15.24 Sydney José D MD Phone Encounter for follow up appt request. Last seen 07.27.21 [facility] 08-28-2024 Miscellaneous Notes Upcoming MR on 09.01.24 See 08.15.24 Sydney José D MD Phone Encounter for follow up appt request. Last seen 07.27.21 documented in this encounter [facility] 08-18-2024 Note HNO ID: [id number] Author: JOSSIE GALVEZ LPN Service: ? Author Type: LICENSED NURSE Type: Progress Notes Filed: 08/18/2024 16:13 Note Text: Patient presents for Hepatitis B vaccine. Denies any problems at this time. Tolerated injection well. Jossie Galvez LPN [facility] 08-18-2024 History of Present illness Narrative Patient presents for Hepatitis B vaccine. Denies any problems at this time. Tolerated injection well. Jossie Galvez LPN documented in this encounter [facility] 08-15-2024 Telephone encounter Note Spoke with Bessie, I let her know she is due for MRI. Gave her numbers to call and schedule imaging and appointment with [facility]. She verbalized understanding. [facility] 08-15-2024 Miscellaneous Notes Spoke with Bessie, I let her know she is due for MRI. Gave her numbers to call and schedule imaging and appointment with [facility]. She verbalized understanding. CV PHONE Name of caller : Bessie Relationship to patient : Self If not self Will need patient permission to release results or disclose health information with called documented in fyi. Patient identified by Name and Date of . ( Bessie Solomon, 1985). Yes Number to return call [phone] Reason for Call: Patient is calling with a question. Per her last visit 07/2021 it was recommended to follow up with Headache Neurology with no mention of repeat imaging. Does she need to complete MRI WO/W IVCON ordered in 02/2024? Patient advised current not experiencing any symptoms. Please call [phone] to confirm instructions. Thank you calling [facility] [place]. You will receive a return call within 48 hours ( or 2 business days if close to the weekend). If you feel that this is an urgent issue and needs immediate attention, it is recommended that you contact your primary care provider office or proceed to your nearest Urgent Care Center of Emergency Room ED for evaluation/treatment. documented in this encounter [facility] 08-15-2024 Telephone encounter Note CV PHONE Name of caller : Bessie Relationship to patient : Self If not self Will need patient permission to release results or disclose health information with called documented in fyi. Patient identified by Name and Date of . ( Bessie Solomon, 1985). Yes Number to return call [phone] Reason for Call: Patient is calling with a question. Per her last visit 07/2021 it was recommended to follow up with Headache Neurology with no mention of repeat imaging. Does she need to complete MRI WO/W IVCON ordered in 02/2024? Patient advised current not experiencing any symptoms. Please call [phone] to confirm instructions. Thank you calling [facility] [place]. You will receive a return call within 48 hours ( or 2 business days if close to the weekend). If you feel that this is an urgent issue and needs immediate attention, it is recommended that you contact your primary care provider office or proceed to your nearest Urgent Care Center of Emergency Room ED for evaluation/treatment. [facility] 08-08-2024 History of Present illness Narrative Radiology Service Progress Note PATIENT NAME: Bessie Solomon DATE OF SERVICE: August 08, 2024 TIME: 9:59 AM PATIENT IDENTITY VERIFICATION COMPLETED USING TWO (2) IDENTIFIERS: Name and Date of confirmed by patient verbally. FALL SCREENING: Has the patient had 2 falls in the last year or 1 fall with injury or currently using an Ambulatory Assistive Device (Walker, Cane, Wheelchair, Crutches, etc.)? No PATIENT GENDER DATA: Female. status: : No status: NO. PATIENT RELEVANT IMPLANT DATA REVIEWED: Not Applicable PATIENT PRESENTS WITH AN IMPLANTABLE OR ATTACHED INSTRUMENTATION DESIGNER: No RADIOLOGY DEPARTMENT: Mammography PERIPHERAL IV DATA: Not applicable SIGNED BY: RT Keanu([place]) August 08, 2024 9:59 AM documented in this encounter [facility] 08-08-2024 Note HNO ID: [id number] Author: FORTINO RIVAS RT([place]con) Service: Radiology Author Type: Technologist Type: Progress Notes Filed: 08/08/2024 09:59 Note Text: Radiology Service Progress Note PATIENT NAME: Bessie Solomon DATE OF SERVICE: August 08, 2024 TIME: 9:59 AM PATIENT IDENTITY VERIFICATION COMPLETED USING TWO (2) IDENTIFIERS: Name and Date of confirmed by patient verbally. FALL SCREENING: Has the patient had 2 falls in the last year or 1 fall with injury or currently using an Ambulatory Assistive Device (Walker, Cane, Wheelchair, Crutches, etc.)? No PATIENT GENDER DATA: Female. status: : No status: NO. PATIENT RELEVANT IMPLANT DATA REVIEWED: Not Applicable PATIENT PRESENTS WITH AN IMPLANTABLE OR ATTACHED INSTRUMENTATION DESIGNER: No RADIOLOGY DEPARTMENT: Mammography PERIPHERAL IV DATA: Not applicable SIGNED BY: RT Keanu(R) August 08, 2024 9:59 AM [facility] 08-04-2024 History of Present illness Narrative SUBJECTIVE: Hepatitis B Vaccine(1 of 3 - 19+ 3-dose series) Never done Covid-19 Vaccine( season) due on 05/25/2024 Presents for routine visit and concerns regarding skin lesions. 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 HPI excerpted from previous visit. She underwent arthroscopic labral repair and more plasty October and November 2023. She feels recovered now. Pain has resolved with surgery. Notes supportive shoewear makes a lot of difference for her. She is followed by Dr. True Gaytan pulmonology and Dr. Sam Hankins allergy for her severe persistent asthma. Currently treating with Advair albuterol and Tezspire. Stopped limited due to severe leg cramping. Noted to be doing well on current treatments. Last seen July 08, [address] Gaytan 6-month follow-up recommended. Last seen June 11, 2024 Dr. Hankins. Noted chronic rhinitis. Currently notes that he has not seen him in good control. She notes multiple moles on her face and back present for years. She notes facial moles can start itching then appeared a later date. Has presumed wart right side of her nose.. She has used lquv-vab-chxjcou treatments for the wart but it returns. Family history of skin cancer but no skin cancer for her. 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 Notes previously had SIBO, now resolved. No current GI complaints She has noted persistent hoarseness since beginning of the year. She has had 2 orthopedic surgeries, October and November. Presumed general anesthesia. She notes intermittent low-grade fever of unknown origin. Does not typically feel ill when this occurs. Lingers for an hour or 2 then resolves. Fevers can be 99-100.3F. Typically no associated symptoms. 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 Review of Systems Constitutional: Positive for fever (intermittent, periodic for months). HENT: Positive for voice change. Negative for sore throat and trouble swallowing. Gastrointestinal: Negative for abdominal pain, diarrhea, nausea and vomiting. No GERD Objective BP 127/86 Pulse 66 Temp 37.2 C (98.9 F) Resp 16 Wt 84.6 kg (186 lb 8.2 oz) LMP 05/21/2024 (Exact Date) BMI 31.77 kg/m Physical Exam Vitals and nursing note reviewed. Constitutional: Appearance: Normal appearance. HENT: Head: Normocephalic and atraumatic. Eyes: Conjunctiva/sclera: Conjunctivae normal. Neck: Thyroid: Thyromegaly (possible mildly enlarged, no palpable nodules) present. No thyroid mass or thyroid tenderness. Vascular: Normal carotid pulses. No carotid bruit or JVD. Cardiovascular: Rate and Rhythm: Normal rate and [...] Skin: General: Skin is warm and dry. Comments: Multiple raised flesh colored lesions across face, numerous flat brown moles and raised brown moles on her back Neurological: General: No focal deficit present. Mental Status: She is alert and oriented to person, place, and time. ALLERGIES Allergen Reactions Clindamycin Rash, GI Upset Septra [Sulfamethox* Rash, GI Upset Medication fluticasone-salmeterol HFA (ADVAIR HFA) 230-21 mcg/actuation inhaler Inhale 2 Puffs as instructed two times a day. albuterol (PROVENTIL) 2.5 mg /3 mL (0.083 %) nebulizer solution Use 3 mL via nebulizer every 4 hours as needed for wheezing/shortness of breath. albuterol HFA (VENTOLIN HFA) 90 mcg/actuation inhaler Inhale 2 Puffs as instructed every 4 hours as needed for wheezing/shortness of breath (and before sexertion / exercise). fluticasone (FLONASE) 50 mcg/actuation nasal spray Use 2 Sprays in each nostril once daily. tezepelumab-ekko (TEZSPIRE) 210 mg/1.91 mL (110 mg/mL) injection INJECT 210MG SUBCUTANEOUSLY EVERY 4 WEEKS montelukast (SINGULAIR) 10 mg tablet TAKE 1 TABLET BY MOUTH DAILY AT BEDTIME azelastine 0.1% nasal spray Use 2 Sprays in each nostril two times a day as needed. ondansetron orally disintegrating (ZOFRAN ODT) 4 mg disintegrating tablet Take 1 tablet by mouth every 8 hours as needed for nausea/vomiting. fexofenadine (GM) 180 mg tablet Take 180 mg by mouth once daily as needed. cetirizine (ZYRTEC) 10 mg tablet Take 10 mg by mouth once daily. famotidine (PEPCID) 20 mg tablet Take 1 tablet by mouth daily at bedtime. ofloxacin (OCUFLOX) 0.3 % ophthalmic solution Use 1 Drop in the right eye four times daily. (Patient not taking: Reported on 08/04/2024) keTORolac (ACULAR) 0.5 % ophthalmic solution Use 1 Drop in both eyes four times daily. (Patient not taking: Reported on 08/04/2024) fluticasone-salmeterol HFA (ADVAIR) 230-21 mcg/actuation inhaler Inhale 2 Puffs as instructed two times a day. (Patient not taking: Reported on 08/04/2024) PREDNISONE ORAL Take by mouth as needed. Burst (Patient not taking: Reported on 06/11/2024) PAST MEDICAL HISTORY Diagnosis Date Acetabular labrum tear, left, initial encounter 09/14/2023 Acetabular labrum tear, unspecified laterality, subsequent encounter 09/14/2023 Asthma Constipation Diarrhea Dyspnea on exertion History of echocardiogram 05/13/2021 EF 60-65% RV systolic pressure 25mmHg R atrial pressure 3mmHg History of stress test 05/13/2021 no ischemic electrocardiogrpahic changes noted pt developed chest pressure ehich resolved in recovery phase average exercise capacity for age baseline htn with a normal BP response to exercise Tear of right acetabular labrum 12/14/2023 Social History Tobacco Use Smoking status: Never Passive exposure: Never Smokeless tobacco: Never Vaping Use Vaping status: Never Used Substance Use Topics Alcohol use: Not Currently Drug use: Not Currently Types: Marijuana Component Latest Ref Rng & Units 04/08/2021 [...] Abs Lymph 1.00 - 4.00 k/uL 1.81 Irwin% % 8.4 Abs Irwin <0.87 k/uL 0.57 Eosin% % 0.9 Abs [...] 0.270 - 4.200 uU/mL 1.920 ASSESSMENT/PLAN: 1. TSH elevation - ICD9: 794.5, ICD10: R79.89 (primary diagnosis) 2. Enlarged thyroid - ICD9: 240.9, ICD10: E04.9 TSH Q3-6 months Keep endocrinology appointment - COMPREHENSIVE METABOLIC PANEL - COMPLETE BLOOD COUNT AND DIFFERENTIAL - THYROID PEROXIDASE ANTIBODY 3. FUO (fever of unknown origin) - ICD9: 780.60, ICD10: R50.9 4. Other fatigue - ICD9: 780.79, ICD10: R53.83 She notes fatigue and intermittent fever of unknown origin without associated symptoms. Will complete some basic labwork, wonder if may be related to thyroid. - SEDIMENTATION RATE, WESTERGREN - C-REACTIVE PROTEIN - RHEUMATOID FACTOR - FARAZ BY IFA SCREEN - FERRITIN - HIV 1/2 COMBO WITH REFLEX TO DIFFERENTIATION - URINALYSIS WITH MICROSCOPIC, REFLEX CULTURE - MONOTEST, INFECTIOUS MONO 5. Hoarseness of voice - ICD9: 784.42, ICD10: R49.0 Persisting since beginning of the year, did have 2 surgeries with presumed general anesthesia/ET. 6- 8 weeks treatment with H2 fransisco to see if this helps - CONSULT TO ENT - FAMOTIDINE 20 MG TABLET 6. Nasal polyp - ICD9: 471.9, ICD10: J33.9 Noted by barrow worker, endorsed ENT evaluation - CONSULT TO ENT 3-6 mo follow up Dariusz Berry APRN.SIDE PULLER or MD Dariusz Choudhary APRN.CNS Medical Decision Making: Problems: Moderate: New problem with uncertain prognosis Data: Unique test(s) ordered: 3+ Risk: Moderate: Drug management Medical Decision Making Level: 4 - Moderate documented in this encounter [facility] 08-04-2024 Note HNO ID: [id number] Author: DARIUSZ BERRY APRN.SIDE PULLER Service: ? Author Type: Nurse Specialist Type: Progress Notes Filed: 08/04/2024 16:52 Note Text: SUBJECTIVE: Hepatitis B Vaccine(1 of 3 - 19+ 3-dose series) Never done Covid-19 Vaccine( season) due on 05/25/2024 Presents for routine visit and concerns regarding skin lesions. 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 HPI excerpted from previous visit. She underwent arthroscopic labral repair and more plasty October and November 2023. She feels recovered now. Pain has resolved with surgery. Notes supportive shoewear makes a lot of difference for her. She is followed by Dr. True Gaytan pulmonology and Dr. Sam Hankins allergy for her severe persistent asthma. Currently treating with Advair albuterol and Tezspire. Stopped limited due to severe leg cramping. Noted to be doing well on current treatments. Last seen July 08, [address] Gaytan 6-month follow-up recommended. Last seen June 11, 2024 Dr. Hankins. Noted chronic rhinitis. Currently notes that he has not seen him in good control. She notes multiple moles on her face and back present for years. She notes facial moles can start itching then appeared a later date. Has presumed wart right side of her nose.. She has used edze-wmm-bcepjji treatments for the wart but it returns. Family history of skin cancer but no skin cancer for her. 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 Notes previously had SIBO, now resolved. No current GI complaints She has noted persistent hoarseness since beginning of the year. She has had 2 orthopedic surgeries, October and November. Presumed general anesthesia. She notes intermittent low-grade fever of unknown origin. Does not typically feel ill when this occurs. Lingers for an hour or 2 then resolves. Fevers can be 99-100.3F. Typically no associated symptoms. 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 Review of Systems Constitutional: Positive for fever (intermittent, periodic for months). HENT: Positive for voice change. Negative for sore throat and trouble swallowing. Gastrointestinal: Negative for abdominal pain, diarrhea, nausea and vomiting. No GERD Objective BP 127/86 Pulse 66 Temp 37.2 ?C (98.9 ?F) Resp 16 Wt 84.6 kg (186 lb 8.2 oz) LMP 05/21/2024 (Exact Date) BMI 31.77 kg/m? Physical Exam Vitals and nursing note reviewed. Constitutional: Appearance: Normal appearance. HENT: Head: Normocephalic and atraumatic. Eyes: Conjunctiva/sclera: Conjunctivae normal. Neck: Thyroid: Thyromegaly (possible mildly enlarged, no palpable nodules) present. No thyroid mass or thyroid tenderness. Vascular: Normal carotid pulses. No carotid bruit or JVD. Cardiovascular: Rate and Rhythm: Normal rate and [...] Skin: General: Skin is warm and dry. Comments: Multiple raised flesh colored lesions across face, numerous flat brown moles and raised brown moles on her back Neurological: General: No focal deficit present. Mental Status: She is alert and oriented to person, place, and time. ALLERGIES Allergen Reactions Clindamycin Rash, GI Upset Septra [Sulfamethox* Rash, GI Upset Medication fluticasone-salmeterol HFA (ADVAIR HFA) 230-21 mcg/actuation inhaler Inhale 2 Puffs as instructed two times a day. albuterol (PROVENTIL) 2.5 mg /3 mL (0.083 %) nebulizer solution Use 3 mL via nebulizer every 4 hours as needed for wheezing/shortness of breath. albuterol HFA (VENTOLIN HFA) 90 mcg/actuation inhaler Inhale 2 Puffs as instructed every 4 hours as needed for wheezing/shortness of breath (and before sexertion / exercise). fluticasone (FLONASE) 50 mcg/actuation nasal spray Use 2 Sprays in each nostril once daily. tezepelumab-ekko (TEZSPIRE) 210 mg/1.91 mL (110 mg/mL) injection INJECT 210MG SUBCUTANEOUSLY EVERY 4 WEEKS montelukast (SINGULAIR) 10 mg tablet TAKE 1 TABLET BY MOUTH DAILY AT BEDTIME azelastine 0.1% nasal spray Use 2 Sprays in each nostril two times a day as needed. ondansetron orally disintegrating (more content not included)... [facility] 08-01-2024 Telephone encounter Note Consult jaiden, schedule if willing. [facility] 08-01-2024 Miscellaneous Notes Consult jaiden, schedule if willing. documented in this encounter [facility] 07-25-2024 History of Present illness Narrative Radiology Service Progress Note PATIENT NAME: Bessie Solomon DATE OF SERVICE: July 25, 2024 TIME: 2:18 PM PATIENT IDENTITY VERIFICATION COMPLETED USING TWO (2) IDENTIFIERS: Name and Date of confirmed by patient verbally. FALL SCREENING: Has the patient had 2 falls in the last year or 1 fall with injury or currently using an Ambulatory Assistive Device (Walker, Cane, Wheelchair, Crutches, etc.)? No PATIENT GENDER DATA: Female. status: : No status: NO. PATIENT RELEVANT IMPLANT DATA REVIEWED: Not Applicable PATIENT PRESENTS WITH AN IMPLANTABLE OR ATTACHED INSTRUMENTATION DESIGNER: No RADIOLOGY DEPARTMENT: Ultrasound PERIPHERAL IV DATA: Not applicable SIGNED BY: Jaja Mak RDMS RVT July 25, 2024 2:18 PM documented in this encounter [facility] 07-25-2024 Note HNO ID: [id number] Author: JAJA MAK RDMS Service: ? Author Type: Clinical Psychiatrist Type: Progress Notes Filed: 07/25/2024 14:18 Note Text: Radiology Service Progress Note PATIENT NAME: Bessie Solomon DATE OF SERVICE: July 25, 2024 TIME: 2:18 PM PATIENT IDENTITY VERIFICATION COMPLETED USING TWO (2) IDENTIFIERS: Name and Date of confirmed by patient verbally. FALL SCREENING: Has the patient had 2 falls in the last year or 1 fall with injury or currently using an Ambulatory Assistive Device (Walker, Cane, Wheelchair, Crutches, etc.)? No PATIENT GENDER DATA: Female. status: : No status: NO. PATIENT RELEVANT IMPLANT DATA REVIEWED: Not Applicable PATIENT PRESENTS WITH AN IMPLANTABLE OR ATTACHED INSTRUMENTATION DESIGNER: No RADIOLOGY DEPARTMENT: Ultrasound PERIPHERAL IV DATA: Not applicable SIGNED BY: Jaja Mak RDMS RVT July 25, 2024 2:18 PM [facility] 07-18-2024 Note HNO ID: [id number] Author: DARIUSZ BERRY APRN.SIDE PULLER Service: ? Author Type: Nurse Specialist Type: Progress Notes Filed: 07/25/2024 07:59 Note Text: SUBJECTIVE: Hepatitis B Vaccine(1 of 3 - 19+ 3-dose series) Never done Covid-19 Vaccine( season) due on 05/25/2024 Mammogram Screening due on 07/06/2024 Presents for routine visit and concerns regarding skin lesions. 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 She feels recovered now. Pain has resolved with surgery. Notes supportive shoewear makes a lot of difference for her. She is followed by Dr. True Gaytan pulmonology and Dr. Sam Hankins allergy for her severe persistent asthma. Currently treating with Advair albuterol and Tezspire. Stopped limited due to severe leg cramping. Noted to be doing well on current treatments. Last seen July 08, [address] Gaytan 6-month follow-up recommended. Last seen June 11, 2024 Dr. Hankins. Noted chronic rhinitis. Currently notes that he has not seen him in good control. She notes multiple moles on her face and back present for years. She notes facial moles can start itching then appeared a later date. Has presumed wart right side of her nose.. She has used qscf-nec-xtdesoj treatments for the wart but it returns. Family history of skin cancer but no skin cancer for her. 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 Notes previously had SIBO, now resolved. No current GI complaints Review of Systems Constitutional: Negative. Objective BP 116/74 Pulse 76 Resp 16 Ht 163.2 cm (5' 4.25) Wt 85.3 kg (188 lb 0.8 oz) LMP 05/21/2024 (Exact Date) BMI 32.03 kg/m? Physical Exam Vitals and nursing note reviewed. Constitutional: Appearance: Normal appearance. HENT: Head: Normocephalic and atraumatic. Eyes: Conjunctiva/sclera: Conjunctivae normal. Neck: Thyroid: Thyromegaly (possible mildly enlarged, no palpable nodules) present. No thyroid mass or thyroid tenderness. Vascular: Normal carotid pulses. No carotid bruit or JVD. Cardiovascular: Rate and Rhythm: Normal rate and [...] Skin: General: Skin is warm and dry. Comments: Multiple raised flesh colored lesions across face, numerous flat brown moles and raised brown moles on her back Neurological: General: No focal deficit present. Mental Status: She is alert and oriented to person, place, and time. ALLERGIES Allergen Reactions Clindamycin Rash, GI Upset Septra [Sulfamethox* Rash, GI Upset Medication ofloxacin (OCUFLOX) 0.3 % ophthalmic solution Use 1 Drop in the right eye four times daily. keTORolac (ACULAR) 0.5 % ophthalmic solution Use 1 Drop in both eyes four times daily. fluticasone-salmeterol HFA (ADVAIR HFA) 230-21 mcg/actuation inhaler Inhale 2 Puffs as instructed two times a day. albuterol (PROVENTIL) 2.5 mg /3 mL (0.083 %) nebulizer solution Use 3 mL via nebulizer every 4 hours as needed for wheezing/shortness of breath. albuterol HFA (VENTOLIN HFA) 90 mcg/actuation inhaler Inhale 2 Puffs as instructed every 4 hours as needed for wheezing/shortness of breath (and before sexertion / exercise). fluticasone (FLONASE) 50 mcg/actuation nasal spray Use 2 Sprays in each nostril once daily. tezepelumab-ekko (TEZSPIRE) 210 mg/1.91 mL (110 mg/mL) injection INJECT 210MG SUBCUTANEOUSLY EVERY 4 WEEKS fluticasone-salmeterol HFA (ADVAIR) 230-21 mcg/actuation inhaler Inhale 2 Puffs as instructed two times a day. montelukast (SINGULAIR) 10 mg tablet TAKE 1 TABLET BY MOUTH DAILY AT BEDTIME azelastine 0.1% nasal spray Use 2 Sprays in each nostril two times a day as needed. ondansetron orally disintegrating (ZOFRAN ODT) 4 mg disintegrating tablet Take 1 tablet by mouth every 8 hours as needed for nausea/vomiting. fexofenadine (GM (more content not included)... [facility] 07-18-2024 History of Present illness Narrative Radiology Service Progress Note PATIENT NAME: Bessie Solomon DATE OF SERVICE: July 18, 2024 TIME: 7:58 AM PATIENT IDENTITY VERIFICATION COMPLETED USING TWO (2) IDENTIFIERS: Name and Date of confirmed by patient verbally. FALL SCREENING: Has the patient had 2 falls in the last year or 1 fall with injury or currently using an Ambulatory Assistive Device (Walker, Cane, Wheelchair, Crutches, etc.)? No PATIENT GENDER DATA: Female. status: : No status: NO. PATIENT RELEVANT IMPLANT DATA REVIEWED: Not Applicable PATIENT PRESENTS WITH AN IMPLANTABLE OR ATTACHED INSTRUMENTATION DESIGNER: No RADIOLOGY DEPARTMENT: Mammography PERIPHERAL IV DATA: Not applicable SIGNED BY: Prince Palmer July 18, 2024 7:58 AM documented in this encounter [facility] 07-18-2024 Note HNO ID: [id number] Author: ILSA ORTIZ Mammo Tech Service: ? Author Type: Alteration Workroom Supervisor Type: Progress Notes Filed: 07/18/2024 07:58 Note Text: Radiology Service Progress Note PATIENT NAME: Bessie Solomon DATE OF SERVICE: July 18, 2024 TIME: 7:58 AM PATIENT IDENTITY VERIFICATION COMPLETED USING TWO (2) IDENTIFIERS: Name and Date of confirmed by patient verbally. FALL SCREENING: Has the patient had 2 falls in the last year or 1 fall with injury or currently using an Ambulatory Assistive Device (Walker, Cane, Wheelchair, Crutches, etc.)? No PATIENT GENDER DATA: Female. status: : No status: NO. PATIENT RELEVANT IMPLANT DATA REVIEWED: Not Applicable PATIENT PRESENTS WITH AN IMPLANTABLE OR ATTACHED INSTRUMENTATION DESIGNER: No RADIOLOGY DEPARTMENT: Mammography PERIPHERAL IV DATA: Not applicable SIGNED BY: Prince Palmer July 18, 2024 7:58 AM [facility] 07-08-2024 History of Present illness Narrative Images from the original note were not included. . [facility] [place] Note Patient name: Bessie Solomon PCP: Diane Bazzi MD CC: Follow up asthma HPI: Bessie Solomon 38 year old female non-smoker with PMH significant for severe asthma. Current therapy consists of Advair, albuterol and Tezspire. Stopped LAMA due to severe LE cramping. Today she states she has been well. No recent URI, ED visits or hospitalization. No wheezing, cough, sputum, SOB. Has been doing well since starting Tezspire. PFTs today are normal and Victoria normal. DATA: ASTHMA CONTROL TEST Date: 07/08/2024 In the last 4 weeks, how much of the time did your asthma keep you from getting as much done at work or home that you wanted to do? None of the time (5) In the last 4 weeks, how often have you had shortness of breath? Not at all (5) In the last 4 weeks, how often did your asthma symptoms (wheezing, coughing, shortness of breath, chest tightness or pain) wake you up at night or earlier than usual? Not at all (5) In the last 4 weeks, how often have you used your rescue inhaler or nebulizer medication (such as Albuterol, Proventil, Ventolin, Maxair, Xoponex, or Primatene Mist)? Once a week or less (4) In the last 4 weeks, how would you rate your asthma control? Completely controlled (5) Total: more than 20 SERVICE DATE: 07/08/2024 SERVICE TIME: 2:07 PM Oral Exhaled Nitric Oxide measurement: 9.0 (ppb) PFT: PAST MEDICAL HISTORY Diagnosis Date Asthma Constipation [...] GI Upset Septra [Sulfamethox* Rash, GI Upset ofloxacin (OCUFLOX) 0.3 % ophthalmic solution Use 1 Drop in the right eye four times daily. keTORolac (ACULAR) 0.5 % ophthalmic solution Use 1 Drop in both eyes four times daily. albuterol (PROVENTIL) 2.5 mg /3 mL (0.083 %) nebulizer solution Use 3 mL via nebulizer every 4 hours as needed for wheezing/shortness of breath. albuterol HFA (VENTOLIN HFA) 90 mcg/actuation inhaler Inhale 2 Puffs as instructed every 4 hours as needed for wheezing/shortness of breath (and before sexertion / exercise). fluticasone (FLONASE) 50 mcg/actuation nasal spray Use 2 Sprays in each nostril once daily. tezepelumab-ekko (TEZSPIRE) 210 mg/1.91 mL (110 mg/mL) injection INJECT 210MG SUBCUTANEOUSLY EVERY 4 WEEKS montelukast (SINGULAIR) 10 mg tablet TAKE 1 TABLET BY MOUTH DAILY AT BEDTIME azelastine 0.1% nasal spray Use 2 Sprays in each nostril two times a day as needed. ondansetron orally disintegrating (ZOFRAN ODT) 4 mg disintegrating tablet Take 1 tablet by mouth every 8 hours as needed for nausea/vomiting. fexofenadine (GM) 180 mg tablet Take 180 mg by mouth once daily as needed. cetirizine (ZYRTEC) 10 mg tablet Take 10 mg by mouth once daily. fluticasone-salmeterol HFA (ADVAIR HFA) 230-21 mcg/actuation inhaler Inhale 2 Puffs as instructed two times a day. fluticasone-salmeterol HFA (ADVAIR) 230-21 mcg/actuation inhaler Inhale 2 Puffs as instructed two times a day. (Patient not taking: Reported on 06/11/2024) PREDNISONE ORAL Take by mouth as needed. Burst (Patient not taking: Reported on 06/11/2024) Social History Tobacco Use Smoking status: Never Passive exposure: Never Smokeless tobacco: Never Vaping Use Vaping status: Never Used Substance Use Topics Alcohol use: Not Currently Drug use: Not Currently Types: Marijuana FAMILY HISTORY Problem Relation Age of Onset other (cerical cancer) Mother Asthma Sister Heart Maternal Grandmother PAST SURGICAL HISTORY Procedure Laterality Date ABDOMINAL SURGERY HX APPENDECTOMY CHOLECYSTECTOMY 09/24/2002 Cholecystectomy COLONOSCOPY 07/23/2023 EGD 07/23/2023 LAPS ABD PRTM&OMENTUM DX W/WO SPEC BR/WA SPX 11/22/2008 Laparoscopy and D&C OPEN HIP LABRAL REPAIR (COMP [id number]) Left 12/13/2023 OPEN HIP LABRAL REPAIR (COMP [id number]) Right 11/01/2023 PMH, Social history, family history and surgical history reviewed and updated in EMR REVIEW OF SYSTEMS: CONSTITUTIONAL: No fevers, chills, nightsweats, unintended weight loss HEENT: Some nasal congestion/sinus symptoms, problematic allergy problems. CARDIOVASCULAR: No chest pain, dyspnea, palpitations, edema. PULM: See HPI INTEGUMENTARY: No new skin changes PHYSICAL EXAMINATION: BP 135/86 Pulse 64 Temp (Src) 99.9 (Temporal) Wt 185 lb (83.9kg) SpO2 100% LMP 05/21/2024 General Appearance: Age appropriate, NAD. Skin: Skin color, texture, turgor normal, no suspicious rashes or lesions. Head: Normocephalic, no masses, lesions, tenderness or abnormalities. Eyes: Sclera, conjunctiva normal. Oropharynx: No oral lesions, erythema, thrush. Neck: No adenopathy. Lungs: not labored, normal to percussion, no wheezes. Heart: RRR, no murmur. Extremities: No edema, no clubbing. Assessment/Plan: Severe persistent asthma, uncomplicated -Symptoms controlled with current therapy and normalization of PFTs -No changes in regimen -Refilled Advair -Patient had yearly flu vaccine True Gaytan MD [facility] [place] documented in this encounter [facility] 07-08-2024 Note HNO ID: [id number] Author: TRUE GAYTAN MD Service: ? Author Type: Physician Type: Progress Notes Filed: 07/08/2024 14:54 Note Text: . [facility] [place] Note Patient name: Bessie Solomon PCP: Diane Bazzi MD CC: Follow up asthma HPI: Bessie Solomon 38 year old female non-smoker with PMH significant for severe asthma. Current therapy consists of Advair, albuterol and Tezspire. Stopped LAMA due to severe LE cramping. Today she states she has been well. No recent URI, ED visits or hospitalization. No wheezing, cough, sputum, SOB. Has been doing well since starting Tezspire. PFTs today are normal and [place] normal. DATA: ASTHMA CONTROL TEST Date: 07/08/2024 In the last 4 weeks, how much of the time did your asthma keep you from getting as much done at work or home that you wanted to do? None of the time (5) In the last 4 weeks, how often have you had shortness of breath? Not at all (5) In the last 4 weeks, how often did your asthma symptoms (wheezing, coughing, shortness of breath, chest tightness or pain) wake you up at night or earlier than usual? Not at all (5) In the last 4 weeks, how often have you used your rescue inhaler or nebulizer medication (such as Albuterol, Proventil, Ventolin, Maxair, Xoponex, or Primatene Mist)? Once a week or less (4) In the last 4 weeks, how would you rate your asthma control? Completely controlled (5) Total: more than 20 SERVICE DATE: 07/08/2024 SERVICE TIME: 2:07 PM Oral Exhaled Nitric Oxide measurement: 9.0 (ppb) PFT: PAST MEDICAL HISTORY Diagnosis Date Asthma Constipation [...] GI Upset Septra [Sulfamethox* Rash, GI Upset ofloxacin (OCUFLOX) 0.3 % ophthalmic solution Use 1 Drop in the right eye four times daily. keTORolac (ACULAR) 0.5 % ophthalmic solution Use 1 Drop in both eyes four times daily. albuterol (PROVENTIL) 2.5 mg /3 mL (0.083 %) nebulizer solution Use 3 mL via nebulizer every 4 hours as needed for wheezing/shortness of breath. albuterol HFA (VENTOLIN HFA) 90 mcg/actuation inhaler Inhale 2 Puffs as instructed every 4 hours as needed for wheezing/shortness of breath (and before sexertion / exercise). fluticasone (FLONASE) 50 mcg/actuation nasal spray Use 2 Sprays in each nostril once daily. tezepelumab-ekko (TEZSPIRE) 210 mg/1.91 mL (110 mg/mL) injection INJECT 210MG SUBCUTANEOUSLY EVERY 4 WEEKS montelukast (SINGULAIR) 10 mg tablet TAKE 1 TABLET BY MOUTH DAILY AT BEDTIME azelastine 0.1% nasal spray Use 2 Sprays in each nostril two times a day as needed. ondansetron orally disintegrating (ZOFRAN ODT) 4 mg disintegrating tablet Take 1 tablet by mouth every 8 hours as needed for nausea/vomiting. fexofenadine (GM) 180 mg tablet Take 180 mg by mouth once daily as needed. cetirizine (ZYRTEC) 10 mg tablet Take 10 mg by mouth once daily. fluticasone-salmeterol HFA (ADVAIR HFA) 230-21 mcg/actuation inhaler Inhale 2 Puffs as instructed two times a day. fluticasone-salmeterol HFA (ADVAIR) 230-21 mcg/actuation inhaler Inhale 2 Puffs as instructed two times a day. (Patient not taking: Reported on 06/11/2024) PREDNISONE ORAL Take by mouth as needed. Burst (Patient not taking: Reported on 06/11/2024) Social History Tobacco Use Smoking status: Never Passive exposure: Never Smokeless tobacco: Never Vaping Use Vaping status: Never Used Substance Use Topics Alcohol use: Not Currently Drug use: Not Currently Types: Marijuana FAMILY HISTORY Problem Relation Age of Onset other (cerical cancer) Mother Asthma Sister Heart Maternal Grandmother PAST SURGICAL HISTORY Procedure Laterality Date ABDOMINAL SURGERY HX APPENDECTOMY CHOLECYSTECTOMY 09/24/2002 Cholecystectomy COLONOSCOPY 07/23/2023 EGD 07/23/2023 LAPS ABD PRTMANDOMENTUM DX W/WO SPEC BR/WA SPX 11/22/2008 Laparoscopy and DANDC OPEN HIP LABRAL REPAIR (COMP [id number]) Left 12/13/2023 OPEN HIP LABRAL REPAIR (COMP [id number]) Right 11/01/2023 PMH, Social history, family history and surgical history reviewed and updated in EMR REVIEW OF SYSTEMS: CONSTITUTIONAL: No fevers, chills, nightsweats, unintended weight loss HEENT: Some nasal congestion/sinus symptoms, problematic allergy problems. CARDIOVASCULAR: No chest pain, dyspnea, palpitations, edema. PULM: See HPI INTEGUMENTARY: No new skin changes PHYSICAL EXAMINATION: BP 135/86 Pulse 64 Temp (Src) 99.9 (Temporal) Wt 185 lb (83.9kg) SpO2 100% LMP 05/21/2024 General Appearance: Age appropriate, NAD. Skin: Skin color, texture, tu (more content not included)... [facility] 07-08-2024 Note HNO ID: [id number] Author: JU BARDALES RPFT Service: ? Author Type: Respiratory Therapist Type: Procedures Filed: 07/08/2024 14:07 Note Text: RESPIRATORY THERAPY ORAL EXHALED NITRIC OXIDE SERVICE DATE: 07/08/2024 SERVICE TIME: 2:07 PM Oral Exhaled Nitric Oxide measurement: 9.0 (ppb) Normal: Adult <25 ppb, pediatric (<12 years) <20 ppb High Normal / Increased: Adult 25-50 ppb, pediatric (<12 years) 20-35 ppb Moderately raised exhaled Nitric Oxide may indicate underlying inflammation, but note that: Cold and influenza can raise exhaled Nitric Oxide and some patients have higher baseline exhaled Nitric Oxide levels than others. High: Adult >50 ppb, pediatric (<12 years) >35 ppb Indicative of ongoing eosinophilic inflammation. Symptomatic patient likely to respond to steroids. Possible causes (if already on steroids): Poor compliance, recent allergen exposure, steroid dose inadequate, and steroid resistance. Note that not all patients with high exhaled nitric oxide levels display symptoms. Oral Exhaled Nitric Oxide measurement (Previous Encounters) Test Date Oral Exhaled Nitric Oxide (ppb) 07/08/2024 9.0 04/19/2022 9.0 03/30/2022 9.0 07/26/2021 10.0 NAME: JULIAN Parikh PATIENT NAME: Bessie Solomon DATE: July 08, 2024 TIME: 2:07 PM [facility] 07-08-2024 Procedure note Associated Ord er(s): NITRIC OXIDE, EXHALED RESPIRATORY THERAPY ORAL EXHALED NITRIC OXIDE SERVICE DATE: 07/08/2024 SERVICE TIME: 2:07 PM Oral Exhaled Nitric Oxide measurement: 9.0 (ppb) Normal: Adult <25 ppb, pediatric (<12 years) <20 ppb High Normal / Increased: Adult 25-50 ppb, pediatric (<12 years) 20-35 ppb Moderately raised exhaled Nitric Oxide may indicate underlying inflammation, but note that: Cold and influenza can raise exhaled Nitric Oxide and some patients have higher baseline exhaled Nitric Oxide levels than others. High: Adult >50 ppb, pediatric (<12 years) >35 ppb Indicative of ongoing eosinophilic inflammation. Symptomatic patient likely to respond to steroids. Possible causes (if already on steroids): Poor compliance, recent allergen exposure, steroid dose inadequate, and steroid resistance. Note that not all patients with high exhaled nitric oxide levels display symptoms. Oral Exhaled Nitric Oxide measurement (Previous Encounters) Test Date Oral Exhaled Nitric Oxide (ppb) 07/08/2024 9.0 04/19/2022 9.0 03/30/2022 9.0 07/26/2021 10.0 NAME: JULIAN Parikh PATIENT NAME: Bessie Solomon DATE: July 08, 2024 TIME: 2:07 PM [facility] 07-08-2024 Procedure note Associated Ord er(s): NITRIC OXIDE, EXHALED RESPIRATORY THERAPY ORAL EXHALED NITRIC OXIDE SERVICE DATE: 07/08/2024 SERVICE TIME: 2:07 PM Oral Exhaled Nitric Oxide measurement: 9.0 (ppb) Normal: Adult <25 ppb, pediatric (<12 years) <20 ppb High Normal / Increased: Adult 25-50 ppb, pediatric (<12 years) 20-35 ppb Moderately raised exhaled Nitric Oxide may indicate underlying inflammation, but note that: Cold and influenza can raise exhaled Nitric Oxide and some patients have higher baseline exhaled Nitric Oxide levels than others. High: Adult >50 ppb, pediatric (<12 years) >35 ppb Indicative of ongoing eosinophilic inflammation. Symptomatic patient likely to respond to steroids. Possible causes (if already on steroids): Poor compliance, recent allergen exposure, steroid dose inadequate, and steroid resistance. Note that not all patients with high exhaled nitric oxide levels display symptoms. Oral Exhaled Nitric Oxide measurement (Previous Encounters) Test Date Oral Exhaled Nitric Oxide (ppb) 07/08/2024 9.0 04/19/2022 9.0 03/30/2022 9.0 07/26/2021 10.0 NAME: JULIAN Parikh PATIENT NAME: Bessie Solomon DATE: July 08, 2024 TIME: 2:07 PM documented in this encounter [facility] 07-08-2024 Note HNO ID: [id number] Author: JU BARDALES RPFT Service: ? Author Type: Respiratory Therapist Type: Progress Notes Filed: 07/08/2024 14:07 Note Text: PULM FUNCTION: Provider: True Gaytan MD Assisting Tech: Catia, Ju, RPGLORIA Spirometry: 1 Exhaled Nitric Oxide: 1 [facility] 07-08-2024 History of Present illness Narrative PULM FUNCTION: Provider: True Gaytan MD Assisting Tech: Ju Bardales, RPGLORIA Spirometry: 1 Exhaled Nitric Oxide: 1 documented in this encounter [facility] 06-16-2024 Telephone encounter Note Dara approved 06-16-24 to 06-16-25. Case # [id number]. Patient aware via . [facility] 06-16-2024 Miscellaneous Notes Dara approved 06-16-24 to 06-16-25. Case # [id number]. Patient aware via . Faxed PA renewal form for Dara with MONIKA to [facility] at [phone]. documented in this encounter [facility] 06-13-2024 Note HNO ID: [id number] Author: LELIA NOVAK APRN.CNM Service: ? Author Type: Information Services Assistant Type: Progress Notes Filed: 06/13/2024 08:34 Note Text: Sap Senior Developer offered: Patient declines. La is a 38 year old who presents for an annual gynecologic exam without complaints. Pelvic US last year showed small uterine fibroid and ovarian cyst. Recent hip surgery. Menses: cycles every 28-32 days and lasting 4-5 days of flow. Light at first and very heavy x 2 days Not painful Contraception: none and vasectomy HPV vaccine: No Last Pap: 11/17/2021 normal HPV: 11/15/2021 negative History of abnormal pap: No Last mammogram: 2022- repeat for additional views / negative Sexually active: Yes History of STDS: HSV History of fibroids: Yes, History of ovarian cyst: Yes, Pain with intercourse: No Postcoital bleeding: No Hot flashes: No Night sweats: No Vaginal dryness: No OB History T2 L2 SAB0 IAB0 Ectopic0 Multiple0 Live Births0 Advanced Practice Rn History LMP: 05/21/2024 (Exact Date), Having periods Age at Menarche: Age at First : Age at Menopause: Advanced Practice Rn History Comments: Sexual Activity: Yes; Male Contraception: [...] SPEC BR/WA SPX 11/22/2008 Laparoscopy and DANDC OPEN HIP LABRAL REPAIR (COMP [id number]) Left 12/13/2023 OPEN HIP LABRAL REPAIR (COMP [id number]) Right 11/01/2023 FAMILY HISTORY Problem Relation Age of Onset other (cerical cancer) Mother Asthma Sister Heart Maternal Grandmother SOCIAL HISTORY Social History Tobacco Use Smoking status: Never Passive exposure: Never Smokeless tobacco: Never Vaping Use Vaping status: Never Used Substance Use Topics Alcohol use: Not Currently Drug use: Not Currently Types: Marijuana REVIEW OF SYSTEMS Abdomen: No abdominal pain, nausea, vomiting, diarrhea, or constipation. No bloating, early satiety, indigestion, or increased flatulence. Bladder: No dysuria, gross hematuria, urinary frequency, urinary urgency, or incontinence. Breast: No breast lumps, nipple d/c, overlying skin changes, redness or skin retraction. Allergies and current medication updated:Yes SENSITIVE EXAM: The sensitive examination was discussed with the Patient or Patient's Authorized Weatherization Operations Manager. As applicable, any other physician, advance practice provider, medical student, or other health professional student that will be observing or involved in the sensitive examination for educational or training purposes was discussed with the Patient or Authorized Weatherization Operations Manager. The Patient or Authorized Weatherization Operations Manager has agreed to proceed with the sensitive examination. (Sensitive examination includes inspection and/or palpation of the breasts, pelvis, prostate and anorectal regions). EXAM: BP 110/60 Ht 5' 5.157 (1.66m) Wt 182 lb (82.6kg) LMP 05/21/2024 BMI 30.14 kg/(m2). GENERAL: pleasant, female in no apparent distress HEENT: Normocephalic, atraumatic, mucus membranes moist, and no lesions NECK: Supple and full range of motion DERMATOLOGY: Normal and without lesions BREAST: soft, non-tender, symmetric, no dominant mass, normal nipple-areolar complex, no lymphadenopathy, no nipple discharge, and fibrocystic changes CHEST: Normal inspiratory effort ABDOMEN: soft, non-tender, and no masses PELVIC: external genitalia normal, normal Bartholin's glands, urethra, Castle's glands, no vulvar lesions, no cervical lesions, good vaginal support, physiologic discharge present, normal appearing perineal body and perianal region BIMANUAL: uterus normal size, shape and consistency, no adnexal masses, non-tender, and no cervical motion tenderness RECTOVAGINAL: deferred. NEURO: alert and oriented x3,exam grossly non-focal EXTREMITIES: normal ASSESSMENT/PLAN: 1) Health maintenance: Pap/HPV up to date. Mammogram ordered. Nutrition, exercise and routine health maintenance exams reviewed. Lipids/glucose: followed by PCP 2) Contraception: vasectomy. . 3) STD screening: Declined STD check. 4) Follow up one year or sooner as needed Lelia Novak APRN.TUYET [facility] 06-13-2024 History of Present illness Narrative Sap Senior Developer offered: Patient declines. Bessie is a 38 year old who presents for an annual gynecologic exam without complaints. Pelvic US last year showed small uterine fibroid and ovarian cyst. Recent hip surgery. Menses: cycles every 28-32 days and lasting 4-5 days of flow. Light at first and very heavy x 2 days Not painful Contraception: none and vasectomy HPV vaccine: No Last Pap: 11/17/2021 normal HPV: 11/15/2021 negative History of abnormal pap: No Last mammogram: 2022- repeat for additional views / negative Sexually active: Yes History of STDS: HSV History of fibroids: Yes, History of ovarian cyst: Yes, Pain with intercourse: No Postcoital bleeding: No Hot flashes: No Night sweats: No Vaginal dryness: No OB History T2 L2 SAB0 IAB0 Ectopic0 Multiple0 Live Births0 Advanced Practice Rn History LMP: 05/21/2024 (Exact Date), Having periods Age at Menarche: Age at First : Age at Menopause: Advanced Practice Rn History Comments: Sexual Activity: Yes; Male Contraception: [...] SPEC BR/WA SPX 11/22/2008 Laparoscopy and D&C OPEN HIP LABRAL REPAIR (COMP [id number]) Left 12/13/2023 OPEN HIP LABRAL REPAIR (COMP [id number]) Right 11/01/2023 FAMILY HISTORY Problem Relation Age of Onset other (cerical cancer) Mother Asthma Sister Heart Maternal Grandmother SOCIAL HISTORY Social History Tobacco Use Smoking status: Never Passive exposure: Never Smokeless tobacco: Never Vaping Use Vaping status: Never Used Substance Use Topics Alcohol use: Not Currently Drug use: Not Currently Types: Marijuana REVIEW OF SYSTEMS Abdomen: No abdominal pain, nausea, vomiting, diarrhea, or constipation. No bloating, early satiety, indigestion, or increased flatulence. Bladder: No dysuria, gross hematuria, urinary frequency, urinary urgency, or incontinence. Breast: No breast lumps, nipple d/c, overlying skin changes, redness or skin retraction. Allergies and current medication updated:Yes SENSITIVE EXAM: The sensitive examination was discussed with the Patient or Patient's Authorized Weatherization Operations Manager. As applicable, any other physician, advance practice provider, medical student, or other health professional student that will be observing or involved in the sensitive examination for educational or training purposes was discussed with the Patient or Authorized Weatherization Operations Manager. The Patient or Authorized Weatherization Operations Manager has agreed to proceed with the sensitive examination. (Sensitive examination includes inspection and/or palpation of the breasts, pelvis, prostate and anorectal regions). EXAM: BP 110/60 Ht 5' 5.157 (1.66m) Wt 182 lb (82.6kg) LMP 05/21/2024 BMI 30.14 kg/(m^2). GENERAL: pleasant, female in no apparent distress HEENT: Normocephalic, atraumatic, mucus membranes moist, and no lesions NECK: Supple and full range of motion DERMATOLOGY: Normal and without lesions BREAST: soft, non-tender, symmetric, no dominant mass, normal nipple-areolar complex, no lymphadenopathy, no nipple discharge, and fibrocystic changes CHEST: Normal inspiratory effort ABDOMEN: soft, non-tender, and no masses PELVIC: external genitalia normal, normal Bartholin's glands, urethra, Castle's glands, no vulvar lesions, no cervical lesions, good vaginal support, physiologic discharge present, normal appearing perineal body and perianal region BIMANUAL: uterus normal size, shape and consistency, no adnexal masses, non-tender, and no cervical motion tenderness RECTOVAGINAL: deferred. NEURO: alert and oriented x3,exam grossly non-focal EXTREMITIES: normal ASSESSMENT/PLAN: 1) Health maintenance: Pap/HPV up to date. Mammogram ordered. Nutrition, exercise and routine health maintenance exams reviewed. Lipids/glucose: followed by PCP 2) Contraception: vasectomy. . 3) STD screening: Declined STD check. 4) Follow up one year or sooner as needed Lelia Novak APRN.CNM documented in this encounter [facility] 06-12-2024 Telephone encounter Note Faxed [place] renewal form for Tezspire with MONIKA to [facility] at [phone]. [facility] 06-11-2024 Nurse Note Patient feels asthma and allergies are well controlled. Tezspire needs re-auth. [facility] 06-11-2024 Nurse Note Patient feels asthma and allergies are well controlled. Tezspire needs re-auth. documented in this encounter [facility] 06-11-2024 History of Present illness Narrative ASSESSMENT/PLAN: 1.) Severe persistent asthma: Significant improvement since beginning treatment with Tezspire Continue Advair 230-21 2 puffs twice a day. Continue Singulair 10 mg at bedtime Continue albuterol HFA inhaler with spacer 2 puffs or albuterol 2.5 mg nebulized every 4 hours as needed. Continue Tezspire 210 mg subcutaneously every 4 weeks Continue to follow-up with pulmonary medicine-next appointment with Dr. Gaytan is July 08-she will have updated spirometry and FeNO completed at that time 2.) Mixed allergic (weeds) and nonallergic rhinitis Aggressive environmental controls Continue fluticasone nasal spray to 2 sprays to each nostril once daily in the morning. Continue Astelin 2 sprays to each nostril twice daily as needed. Continue Zyrtec 10 mg once daily. If necessary, she may also take fexofenadine 180 mg once daily as needed. 3.) Discussed medication dosage, usage, side effects, and goals of treatment in detail. 4.) Follow-up in 1 year- patient will return sooner should new symptoms or problems arise. Sam Hankins MD Allergy and Clinical Immunology Bessie Solomon is a 38 year old female with a history of mixed allergic (weeds) and nonallergic rhinitis and severe persistent asthma who presents for a follow-up visit. Her last visit was 05/15/23. She began treatment with Tezspire on June 14, 2022. She has been tolerating this without adverse reaction. Her asthma symptoms have improved significantly since beginning treatment with this medication. Prior to beginning treatment with Tezspire, she was using albuterol 4 or more times per day acute symptoms. She now uses albuterol for acute symptoms approximately once per week. Today. she noted cough and mild shortness of breath when exposed to strong chemical odors at work. Basement was recently remediated for mold. 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 She used short acting beta agonists with resolution of symptoms. Otherwise, typically uses short acting beta agonists up to once per week for acute symptoms. Denies nocturnal awakenings due to respiratory symptoms. She has required treatment with 1-2 courses of systemic steroids for asthma in the past year. No emergency room visits or hospitalizations for respiratory symptoms since her last visit. Although she has noted a mild increase in nasal symptoms recently which she attributes to high weed pollen counts, overall her nasal and ocular symptoms are well-controlled with her current medications. She discontinued use of Spiriva due to muscle cramps associated with use of this medication. (From previous visit: Patient's notes occasional snoring [...] In July,, methacholine challenge test completed at [facility] was positive. Symbicort 160-4.5 was prescribed at [...] Claritin and Zyrtec without clear relief. 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 She does not know details about the [...] a normal BP response to exercise MEDICATIONS: tezepelumab-ekko (TEZSPIRE) 210 mg/1.91 mL (110 mg/mL) injection INJECT 210MG SUBCUTANEOUSLY EVERY 4 WEEKS fluticasone-salmeterol HFA (ADVAIR) 230-21 mcg/actuation inhaler Inhale 2 Puffs as instructed two times a day. montelukast (SINGULAIR) 10 mg tablet TAKE 1 TABLET BY MOUTH DAILY AT BEDTIME azelastine 0.1% nasal spray Use 2 Sprays in each nostril two times a day as needed. ondansetron orally disintegrating (ZOFRAN ODT) 4 mg disintegrating tablet Take 1 tablet by mouth every 8 hours as needed for nausea/vomiting. PREDNISONE ORAL Take by mouth as needed. Burst fluticasone-salmeterol HFA (ADVAIR HFA) 230-21 mcg/actuation inhaler Inhale 2 Puffs as instructed two times a day. fluticasone (FLONASE) 50 mcg/actuation nasal spray Use 2 Sprays in each nostril once daily. tiotropium bromide (SPIRIVA RESPIMAT) 1.25 mcg/actuation mist INHALE 2 PUFFS BY MOUTH INSTRUCTED ONCE DAILY. albuterol (PROVENTIL) 2.5 mg /3 mL (0.083 %) nebulizer solution Use 3 mL via nebulizer every 4 hours as needed for wheezing/shortness of breath. fexofenadine (GM) 180 mg tablet Take 180 mg by mouth once daily as needed. cetirizine (ZYRTEC) 10 mg tablet Take 10 mg by mouth once daily. albuterol HFA (VENTOLIN HFA) 90 mcg/actuation inhaler Inhale 2 Puffs as instructed every 4 hours as needed for wheezing/shortness of breath (and before sexertion / exercise). ALLERGIES: Allergies As of Date: 06/11/2024 Allergen Noted Reaction CLINDAMYCIN 05/09/2010 Rash and GI Upset SEPTRA [SULFAMETHOXAZOLE-TRIMETHO* 010 Rash and GI Upset Fully Assessed 03/11/2024 PAST SURGICAL HISTORY Procedure Laterality Date ABDOMINAL SURGERY HX APPENDECTOMY CHOLECYSTECTOMY 09/24/2002 Cholecystectomy COLONOSCOPY 07/23/2023 EGD 07/23/2023 LAPS ABD PRTM&OMENTUM DX W/WO SPEC BR/WA SPX 11/22/2008 Laparoscopy and D&C OPEN HIP LABRAL REPAIR (COMP [id number]) Left 12/13/2023 OPEN HIP LABRAL REPAIR (COMP [id number]) Right 11/01/2023 FAMILY HISTORY: Allergic rhinitis:no. Asthma: no. Eczema: no. Cystic fibrosis: no. Immunodeficiency: no. 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 Spirometry pre and postbronchodilator on January 02, 2023: Normal Spirometry pre and postbronchodilator on April 19, [...] patient tolerated the amoxicillin without adverse reaction. documented in this encounter [facility] 06-11-2024 Note HNO ID: [id number] Author: SAM HANKINS MD Service: ? Author Type: Physician Type: Progress Notes Filed: 06/11/2024 16:41 Note Text: ASSESSMENT/PLAN: 1.) Severe persistent asthma: Significant improvement since beginning treatment with Tezspire Continue Advair 230-21 2 puffs twice a day. Continue Singulair 10 mg at bedtime Continue albuterol HFA inhaler with spacer 2 puffs or albuterol 2.5 mg nebulized every 4 hours as needed. Continue Tezspire 210 mg subcutaneously every 4 weeks Continue to follow-up with pulmonary medicine-next appointment with Dr. Gaytan is July 08-she will have updated spirometry and FeNO completed at that time 2.) Mixed allergic (weeds) and nonallergic rhinitis Aggressive environmental controls Continue fluticasone nasal spray to 2 sprays to each nostril once daily in the morning. Continue Astelin 2 sprays to each nostril twice daily as needed. Continue Zyrtec 10 mg once daily. If necessary, she may also take fexofenadine 180 mg once daily as needed. 3.) Discussed medication dosage, usage, side effects, and goals of treatment in detail. 4.) Follow-up in 1 year- patient will return sooner should new symptoms or problems arise. Sam Hankins MD Allergy and Clinical Immunology Bessie Solomon is a 38 year old female with a history of mixed allergic (weeds) and nonallergic rhinitis and severe persistent asthma who presents for a follow-up visit. Her last visit was 05/15/23. She began treatment with Tezspire on June 14, 2022. She has been tolerating this without adverse reaction. Her asthma symptoms have improved significantly since beginning treatment with this medication. Prior to beginning treatment with Tezspire, she was using albuterol 4 or more times per day acute symptoms. She now uses albuterol for acute symptoms approximately once per week. Today. she noted cough and mild shortness of breath when exposed to strong chemical odors at work. Basement was recently remediated for mold. 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 She used short acting beta agonists with resolution of symptoms. Otherwise, typically uses short acting beta agonists up to once per week for acute symptoms. Denies nocturnal awakenings due to respiratory symptoms. She has required treatment with 1-2 courses of systemic steroids for asthma in the past year. No emergency room visits or hospitalizations for respiratory symptoms since her last visit. Although she has noted a mild increase in nasal symptoms recently which she attributes to high weed pollen counts, overall her nasal and ocular symptoms are well-controlled with her current medications. She discontinued use of Spiriva due to muscle cramps associated with use of this medication. (From previous visit: Patient's notes occasional snoring [...] In July,, methacholine challenge test completed at [facility] was positive. Symbicort 160-4.5 was prescribed at [...] Claritin and Zyrtec without clear relief. Allergen [place] panel completed on March 30, 2022 was negative. No prior allergy skin testing or allergy immunotherapy. She was previously told by her neurologist that she had a nasal polyp. Reports normal sense of taste and smell. Denies a history of recurrent or chronic rhinosinusitis. Denies a history of nasal fracture. She has occasional GERD symptoms associated with ingestion of spicy or acidic fo (more content not included)... [facility] 06-02-2024 Telephone encounter Note Received fax for PA for Tespire from [email or web address]. Will complete next week once current office note is completed . [facility] 06-02-2024 Miscellaneous Notes Received fax for PA for Tespire from [email or web address]. Will complete next week once current office note is completed . documented in this encounter [facility] 06-02-2024 Telephone encounter Note Patient scheduled [facility] 06-02-2024 Miscellaneous Notes Patient scheduled The following was approved. Please instruct patient to schedule a follow-up appt The patient needs to be seen for a follow-up visit before additional refills will be provided. Medication may require pre-authorization The following approved medication requests have been transmitted electronically. Requested Prescriptions Signed Prescriptions Disp Refills tezepelumab-ekko (TEZSPIRE) 210 mg/1.91 mL (110 mg/mL) injection 1.91 mL 3 Sig: INJECT 210MG SUBCUTANEOUSLY EVERY 4 WEEKS Authorizing Provider: SAM HANKINS MD Prescription Refill Information The patient has been identified by name and date of : Yes Caregiver verified no other encounters exist for this prescription request: Yes Caregiver confirmed with patient/requestor that no other refills are due, in the near future, with this provider at this time: Yes The last office visit in the department: 05/15/23 Does the patient have a future office visit with this provider/department: No she does have FU with PULM in [place] on 07/08/24 should they just manage the Tezspire? Requested Prescriptions Pending Prescriptions Disp Refills TEZSPIRE 210 mg/1.91 mL (110 mg/mL) injection [Pharmacy Med Name: TEZSPIRE PEN 210MG/1.91ML (110MG/ML)] 1.91 mL 6 Sig: INJECT 210MG SUBCUTANEOUSLY EVERY 4 WEEKS Alba Barrett RN June 02, 2024 7:32 AM documented in this encounter [facility] 06-02-2024 Telephone encounter Note The following was approved. Please instruct patient to schedule a follow-up appt The patient needs to be seen for a follow-up visit before additional refills will be provided. Medication may require pre-authorization The following approved medication requests have been transmitted electronically. Requested Prescriptions Signed Prescriptions Disp Refills tezepelumab-ekko (TEZSPIRE) 210 mg/1.91 mL (110 mg/mL) injection 1.91 mL 3 Sig: INJECT 210MG SUBCUTANEOUSLY EVERY 4 WEEKS Authorizing Provider: SAM HANKINS MD [facility] 06-02-2024 Telephone encounter Note Prescription Refill Information The patient has been identified by name and date of : Yes Caregiver verified no other encounters exist for this prescription request: Yes Caregiver confirmed with patient/requestor that no other refills are due, in the near future, with this provider at this time: Yes The last office visit in the department: 05/15/23 Does the patient have a future office visit with this provider/department: No she does have FU with [facility]M in [place] on 07/08/24 should they just manage the Tezspire? Requested Prescriptions Pending Prescriptions Disp Refills TEZSPIRE 210 mg/1.91 mL (110 mg/mL) injection [Pharmacy Med Name: TEZSPIRE PEN 210MG/1.91ML (110MG/ML)] 1.91 mL 6 Sig: INJECT 210MG SUBCUTANEOUSLY EVERY 4 WEEKS Alba Barrett RN June 02, 2024 7:32 AM [facility] 05-12-2024 Telephone encounter Note Patient has been identified by name and date of : Yes Reason for call: Pt called back to reschedule, pt wants something sooner then available but pt also stated she feels fine and just needs a final release to work. Please advise and call pt back. 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 Please advise and call pt back. 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 Ho Partida. Provider will be out of the office after 2 pm. documented in this encounter [facility] 05-12-2024 Telephone encounter Note Called patient lvm and sent myc message to reschedule appointment 05/14/[address] Ho Partida. Provider will be out of the office after 2 pm. [facility] 04-11-2024 History of Present illness Narrative Program_ID:[id number] Access Code: [email or web address] URL: [email or web address] Date: 04-11-2024 Prepared By: Jaja Leonard Program Notes Exercises - Lying Prone - 2-3 x daily - 7 x weekly - sets - reps - Static Prone on Elbows - 2-3 x daily - 7 x weekly - 2-3 sets - 1 reps - Prone Push Ups on Forearms - 2-3 x daily - 7 x weekly - 2-3 sets - 10 reps - Standing Lumbar Extension - 1 x daily - 7 x weekly - 2-3 sets - 10 reps Images from the original note were not included. Episode Visit Count: 23 Therapist That Will Accept/Oversee The Plan Of Care: Jaja Leonard Start of Care Date: 11/02/23 Onset Date: 11/01/23 Plan of Care Certification Date: 04/11/24 Next Certification Due Date: 06/06/24 REHABILITATION AND SPORTS THERAPY PHYSICAL THERAPY PROGRESS REPORT PLAN OF CARE UPDATE: Assessment: Bessie Solomon demonstrates difficulty with sitting, rising from a chair, standing, walking, walking in the community, stair negotiation, bending, lifting, recreational activities, kneeling, running, and jumping. She has progressed toward goals. Patient continues to present with impairments in ADL's, flexibility, gait, independence in exercise, joint mobility, overall function, patient reported outcome measures, posture, strength, symptom management, and tissue tenderness that interfere with physical activities, running, working, carrying, lifting, recreational activities, walking in the community, rising from a chair, standing, sitting, bending (ascending steps is painful, descending is ok) . Current prognosis is Good due to: current objective clinical presentation, good overall health status, acuteness of condition, positive past response to therapy, within-session changes, good support system/ coping skills . She will benefit from continued skilled therapy services to meet the updated goals for this plan of care as noted below. Goals for Episode of Care: created on through 02/22/24 Goals updated on 12/07/2023 through 02/10/24 Goals updated on 12/14/2023 through 01/11/24 Goals updated on 01/08/2024 through 02/12/24 Goals updated on 02/20/2024 through 03/26/24 Goals updated on 04/11/2024 through 06/06/24 [place] in home exercise program. -- MET Patient will decrease pain rating by 2 points to meet minimal clinical important difference for numeric pain rating scale. --R and L side -- MET Patient will increase active ROM of R hip to 120 flexion to allow pt to to improve postural alignment. -- MET Patient will demonstrate increase in R and L hip flexion, extension, abduction, IR, and ER strength to 4/5 during manual muscle testing in order to improve function for prior functional tasks. -- Perform transitional sit <> stand with decreased report of symptoms/pain and with independence in 13 weeks. -- MET Normal gait. --MET Reciprocal stair negotiation. -- MET, but with stiffness Patient will increase balance to 20 seconds for single limb stance on RLE and 20 seconds for single limb stance on LLE. -- MET Patient will demonstrate improved neuromuscular coordination as evidenced by improve function for prior functional tasks. -- MET Pt. Will be able to tolerate x 30 -45 minutes of sitting without increased L hip symptoms. -- NEW GOAL Pt. Will be able to amb x 10-15 minutes without increased L back or LLE pain -- NEW GOAL Pt. Will be able to complete sit <> stand from various surfaces without increased L hip or LBP -- NEW GOAL Patient Goals: restore functional ROM and strength of the RLE hip -- PROGRESSING Patient Goals: restore functional ROM and strength of the RLE hip Planned Interventions, Frequency, and Duration: 1x/week, 8 weeks Total Number of Visits Planned: 8 Patient to be seen for Therapeutic exercise (28846), Manual therapy (82795), Self-prison management (31579), Gait Training (82813), Therapeutic activities (02213), Neuromuscular re-education (14751) PLAN FOR NEXT VISIT: assess symtom response to repeated lumbar extension SUBJECTIVE: Post op wk 17. Continued HS tightness and pain that gets better with squats. Pt. is unable to long sit without leaning back and she is not able to touch her toes.. Patient Goals: restore functional ROM and strength of the RLE hip Functional Limitations: physical activities, running, working, carrying, lifting, recreational activities, walking in the community, rising from a chair, standing, sitting, bending (ascending steps is painful, descending is ok) Pain: Pain Pain Level: 0 Pain Location: Thigh - Left Frequency: With movement Post Treatment Pain Post Treatment Pain Level: 0 Post Treatment Symptoms: better, no pain with sit <> stand PROMIS Scales 04/10/2024 03/04/2024 02/25/2024 Higher is Better Phys Func - Score 43 (mild dysfunction) 41 (mild dysfunction) Phys Func - Percentile 24 18 Self-Eff Symptom - Score 52 (Average) 52 (Average) Self-Eff Symptom - Percentile 58 58 T-scores: mean of general population = 50. 5 points is clinically meaningfully difference Percentiles provide an indication of how the patient's score ranks in relation to the general population. Higher percentile rankings indicate better function/quality of life. 50th percentile is the average of the general population and indicates half of respondents had a worse score. OBJECTIVE MEASURES WITH LEVEL OF FUNCTION: LE Strength R Hip Extension: 5/5 R Hip Flexion (L2): 5/5 R Hip Internal Rotation: 5/5 R Hip External Rotation: 5/5 L Hip Extension: 5/5 L Hip Flexion (L2): 3-/5 (limited by pain) L Hip ABduction: 3-/5 (limited by pain) L Hip Internal Rotation: 5/5 L Hip External Rotation: 5/5 Special Tests - Hip and Spine Hip and Spine Special Tests: Slump Test Slump Test: Left Positive TREATMENT: Therapeutic Exercise: 1: Scifit bike seat 7, 5 min, level 3, 1:1 throughout subjective collected 2: prone lay 3 min 3: PAT x 3 min 4: prone press ups 4x10 between sets of manual therapy joint mobilizations 5: seated sciatic nerve glide 5x each side - dc due to symptom provocation Skilled Intervention: Patient was educated in proper exercise technique and purpose for exercises. Skilled judgment was used in selection of appropriate interventions. Provided written instruction for home exercise program to facilitate proper performance and compliance. Correct performance of therapeutic exercises was facilitated with verbal, visual, and tactile cuing. Additional time necessary for assessing progress toward goals due to PN. Educated patient on rationale for performing exercises in regards to decreasing fatigue , increase ease of ADL, and ROM and function . Patient education as noted. Manual Therapy: Joint Mobilizations: Repetitions, Grade, Joint, Patient Position, Body Region Treated Body Region Treated: lumbar Patient Position: prone Joint: L4-L5, L5-S1 Grade: II progressing to III Repetitions: 3-4 sets of 10 oscillations at each segment Skilled Intervention: Manual skills to improve joint mobility, ROM, and decrease pain. Utilized anatomy knowledge of the therapist, and assessment of patient's response to intervention. Self-Intermediate Management: 1: lumbar towel roll 2: discussed lumbar anatomy nad sciatica nerve anatomy - picture provided 3: discussed possible causes of sciatica - provided images 4: discusssed cnetralization of symptoms 5: discussed plan to return to PT if extension exercsies do not manage symptoms 6: discussed px of lumbar spine radiating symptoms - within session changes 7: discussed the diffrence between nerve pain vs. muscular pain Skilled Intervention: Skilled judgment in the selection of proper modification for activity of daily living/home management based on clinical presentation, deficits, and needs. Provided written instruction for activities of daily living techniques to facilitate proper performance and compliance. Reviewed patient specific diagnosis in relation to activities of daily living/home management. Activity progression based on professional judgement. Moderate verbal cues for maintaining neutral spine alignment. Provided written instruction for home program to facilitate proper performance and compliance. Billing Therapeutic Exercise Treatment Minutes: 21 Manual TherapyTreatment Minutes: 10 Self-Care/Home Management Treatment Minutes: 20 Skilled Treatment Time Minutes (timed and untimed codes): 51 Total Session Time (minutes): 51 Session Start Time : 1259 Session Stop Time : 1350 Jaja Leonard PT documented in this encounter [facility] 04-11-2024 Note HNO ID: [id number] Author: JAJA LEONARD PT Service: ? Author Type: Physical Therapist Type: Progress Notes Filed: 04/11/2024 13:58 Note Text: Episode Visit Count: 23 Therapist That Will Accept/Oversee The Plan Of Care: Jaja Leonard Start of Care Date: 11/02/23 Onset Date: 11/01/23 Plan of Care Certification Date: 04/11/24 Next Certification Due Date: 06/06/24 REHABILITATION AND SPORTS THERAPY PHYSICAL THERAPY PROGRESS REPORT PLAN OF CARE UPDATE: Assessment: Bessie Solomon demonstrates difficulty with sitting, rising from a chair, standing, walking, walking in the community, stair negotiation, bending, lifting, recreational activities, kneeling, running, and jumping. She has progressed toward goals. Patient continues to present with impairments in ADL's, flexibility, gait, independence in exercise, joint mobility, overall function, patient reported outcome measures, posture, strength, symptom management, and tissue tenderness that interfere with physical activities, running, working, carrying, lifting, recreational activities, walking in the community, rising from a chair, standing, sitting, bending (ascending steps is painful, descending is ok) . Current prognosis is Good due to: current objective clinical presentation, good overall health status, acuteness of condition, positive past response to therapy, within-session changes, good support system/ coping skills . She will benefit from continued skilled therapy services to meet the updated goals for this plan of care as noted below. Goals for Episode of Care: created on through 02/22/24 Goals updated on 12/07/2023 through 02/10/24 Goals updated on 12/14/2023 through 01/11/24 Goals updated on 01/08/2024 through 02/12/24 Goals updated on 02/20/2024 through 03/26/24 Goals updated on 04/11/2024 through 06/06/24 [place] in home exercise program. -- MET Patient will decrease pain rating by 2 points to meet minimal clinical important difference for numeric pain rating scale. --R and L side -- MET Patient will increase active ROM of R hip to 120 flexion to allow pt to to improve postural alignment. -- MET Patient will demonstrate increase in R and L hip flexion, extension, abduction, IR, and ER strength to 4/5 during manual muscle testing in order to improve function for prior functional tasks. -- Perform transitional sit <> stand with decreased report of symptoms/pain and with independence in 13 weeks. -- MET Normal gait. --MET Reciprocal stair negotiation. -- MET, but with stiffness Patient will increase balance to 20 seconds for single limb stance on RLE and 20 seconds for single limb stance on LLE. -- MET Patient will demonstrate improved neuromuscular coordination as evidenced by improve function for prior functional tasks. -- MET Pt. Will be able to tolerate x 30 -45 minutes of sitting without increased L hip symptoms. -- NEW GOAL Pt. Will be able to amb x 10-15 minutes without increased L back or LLE pain -- NEW GOAL Pt. Will be able to complete sit <> stand from various surfaces without increased L hip or LBP -- NEW GOAL Patient Goals: restore functional ROM and strength of the RLE hip -- PROGRESSING Patient Goals: restore functional ROM and strength of the RLE hip Planned Interventions, Frequency, and Duration: 1x/week, 8 weeks Total Number of Visits Planned: 8 Patient to be seen for Therapeutic exercise (67940), Manual therapy (16247), Self-prison management (36797), Gait Training (74986), Therapeutic activities (80083), Neuromuscular re-education (76883) PLAN FOR NEXT VISIT: assess symtom response to repeated lumbar extension SUBJECTIVE: Post op wk 17. Continued HS tightness and pain that gets better with squats. Pt. is unable to long sit without leaning back and she is not able to touch her toes.. Patient Goals: restore functional ROM and strength of the RLE hip Functional Limitations: physical activities, running, working, carrying, lifting, recreational activities, walking in the community, rising from a chair, standing, sitting, bending (ascending steps is painful, descending is ok) Pain: Pain Pain Level: 0 Pain Location: Thigh - Left Frequency: With movement Post Treatment Pain Post Treatment Pain Level: 0 Post Treatment Symptoms: better, no pain with sit <> stand PROMIS Scales 04/10/2024 03/04/2024 02/25/2024 Higher is Better Phys Func - Score 43 (mild dysfunction) 41 (mild dysfunction) Phys Func - Percentile 24 18 Self-Eff Symptom - Score 52 (Average) 52 (Average) Self-Eff Symptom - Percentile 58 58 T-scores: mean of general population = 50. 5 points is clinically meaningfully difference Percentiles provide an indication of how the patient's score ranks in relation to the general population. Higher percentile rankings indicate better function/quality of life. 50th percentile is the average of the general population and indicates half of respondents had a worse score (more content not included)... [facility] 03-18-2024 History of Present illness Narrative Program_ID:[id number] Access Code: [email or web address] URL: [email or web address] Date: 03-18-2024 Prepared By: Jaja Leonard Program Notes Exercises - Standing Good Morning with Barbell - 2 x daily - 7 x weekly - 4 sets - 10 reps - Dynamic Straight Leg Kicks - 2 x daily - 7 x weekly - 2 sets - reps - Walking Hamstring Stretch - 2 x daily - 7 x weekly - 2 sets - reps - Hamstring Mobilization with Foam Roll - x daily - 7 x weekly - sets - reps - Single-Leg Ukrainian Deadlift With Kettlebell - 1 x daily - 7 x weekly - 2 sets - 8 reps Episode Visit Count: 22 Therapist That Will Accept/Oversee The Plan Of Care: Jaja Leonard Start of Care Date: 11/02/23 Onset Date: 11/01/23 Plan of Care Certification Date: 02/20/24 Next Certification Due Date: 03/26/24 REHABILITATION AND SPORTS THERAPY PHYSICAL THERAPY TREATMENT NOTE ASSESSMENT: Bessie Solomon tolerated the session with increased symptoms. She demonstrated improvements in hamstring tightness/symptoms at the ischial tuberosity with foam rolling . The patient will continue to benefit from ongoing skilled physical therapy to progress toward set goals. Current Frequency: 1x/week PLAN FOR NEXT VISIT: SUBJECTIVE: Post op wk 14. Pt. continues to have pain in the left hamstring. Massage has helped. Pain: Pain Pain Level: 0 Pain Location: Thigh - Left OBJECTIVE MEASURES WITH LEVEL OF FUNCTION: TREATMENT: Therapeutic Exercise: 1: Scifit bike seat 7, 5 min, level 3, 1:1 throughout subjective collected 2: seated LAQ with wedge at HS ischial tuberosity 3x8 3: *Access Code: [email or web address] URL: [email or web address] Date: 03/18/2024 Prepared by: Jaja Jean Exercises - Standing Good Morning with Barbell - 2 x daily - 7 x weekly - 4 sets - 10 reps - Dynamic Straight Leg Kicks - 2 x daily - 7 x weekly - 2 sets - Walking Hamstring Stretch - 2 x daily - 7 x weekly - 2 sets - Hamstring Mobilization with Foam Roll - 7 x weekly - Single-Leg Ukrainian Deadlift With Kettlebell - 1 x daily - 7 x weekly - 2 sets - 8 reps Skilled Intervention: Patient was educated in proper [...] increase ease of ADL, and ROM and function. Patient education as noted. Billing Therapeutic Exercise Treatment Minutes: 40 Skilled Treatment Time Minutes (timed and untimed codes): 40 Total Session Time (minutes): 40 Session Start Time : 1743 Session Stop Time : 1823 Jaja Leonard PT documented in this encounter [facility] 03-18-2024 Note HNO ID: [id number] Author: JAJA LEONARD PT Service: ? Author Type: Physical Therapist Type: Progress Notes Filed: 03/18/2024 18:25 Note Text: Episode Visit Count: 22 Therapist That Will Accept/Oversee The Plan Of Care: Jaja Leonard Start of Care Date: 11/02/23 Onset Date: 11/01/23 Plan of Care Certification Date: 02/20/24 Next Certification Due Date: 03/26/24 REHABILITATION AND SPORTS THERAPY PHYSICAL THERAPY TREATMENT NOTE ASSESSMENT: Bessie Solomon tolerated the session with increased symptoms. She demonstrated improvements in hamstring tightness/symptoms at the ischial tuberosity with foam rolling . The patient will continue to benefit from ongoing skilled physical therapy to progress toward set goals. Current Frequency: 1x/week PLAN FOR NEXT VISIT: SUBJECTIVE: Post op wk 14. Pt. continues to have pain in the left hamstring. Massage has helped. Pain: Pain Pain Level: 0 Pain Location: Thigh - Left OBJECTIVE MEASURES WITH LEVEL OF FUNCTION: TREATMENT: Therapeutic Exercise: 1: Scifit bike seat 7, 5 min, level 3, 1:1 throughout subjective collected 2: seated LAQ with wedge at HS ischial tuberosity 3x8 3: *Access Code: [email or web address] URL: [email or web address] Date: 03/18/2024 Prepared by: Jaja Leonard Exercises - Standing Good Morning with Barbell - 2 x daily - 7 x weekly - 4 sets - 10 reps - Dynamic Straight Leg Kicks - 2 x daily - 7 x weekly - 2 sets - Walking Hamstring Stretch - 2 x daily - 7 x weekly - 2 sets - Hamstring Mobilization with Foam Roll - 7 x weekly - Single-Leg Ukrainian Deadlift With Kettlebell - 1 x daily - 7 x weekly - 2 sets - 8 reps Skilled Intervention: Patient was educated in proper [...] increase ease of ADL, and ROM and function. Patient education as noted. Billing Therapeutic Exercise Treatment Minutes: 40 Skilled Treatment Time Minutes (timed and untimed codes): 40 Total Session Time (minutes): 40 Session Start Time : 1743 Session Stop Time : 1823 Jaja Leonard, PT [facility] 03-11-2024 Note HNO ID: [id number] Author: BETSEY PARTIDA MD Service: ? Author Type: Physician Type: Progress Notes Filed: 03/11/2024 12:11 Note Text: DEPARTMENT OF ORTHOPAEDICS Chief Complaint: Bilateral hip pain Patient returns for follow up of bilateral staged hip arthroscopy. Last seen 01-25-24. Patient reports no interim trauma. She reports she is doing well. She is back to work, with restrictions. She is going to PT 2x/week Goal = return to hiking She does express some discomfort on the lateral aspect of her left thigh. PHYSICAL EXAM: [facility] 12/06/2023 General: Appears stated age, well built, in no apparent distress. Psychiatric: Mood and affect appropriate. Alert and oriented x 3 without evidence of abnormal respiratory effort. Musculoskeletal Exam: Gait normal, Posture: erect and normal. Exam: Right Left Single Leg Trendelenburg Negative Positive Hip flexion 100 100 IR 20 20 ER 60 60 Anterior impingement negative negative Dynamic labral stress negative negative FAHAD negative negative Posterior Impingement negative negative MILADYS negative negative Strength Supine HF 5/5 5/5 Upright HF 5/5 5/5 Adduction 5/5 5/5 Abduction 5/5 5-/5 Tenderness with Palpation: Right Left Greater Troch Negative Negative Gluteus Medius Negative Negative Piriformis Negative Negative IMPRESSION: (S73.191D) Tear of right acetabular labrum, subsequent encounter (primary encounter diagnosis) (S73.192D) Acetabular labrum tear, left, subsequent encounter PLAN: 1. Medication: None. 2. Test(s)/Imaging/Referral(s): None. 3. Intervention: Continue conservative treatment post op stage hip arthroscopy. Patient is progressing well. Continue with PT per protocol. Discussed keeping the same work restrictions (updated letter provided today) however if she feels she is ready at some point prior to her next visit to lift some of her work restrictions she will let us know. Patient is on board with the plan and all questions were answered. They will let us know if there are any issues in the interim. 4. Follow-up: Return in about 8 weeks (around 05/06/2024). Scribe Attestation: By signing my name below, I, AUSTIN Yung, attest that this documentation has been prepared under the direction and in the presence of Betsey Partida M.D. Electronically Signed:AUSTIN Yung, March 11, 2024 10:51 AM I agree with the Chief Complaint, ROS, and Past Histories independently gathered by the clinical litigation support analyst and the remaining scribed note accurately describes my personal service to the patient. Betsey Partida MD [facility] 03-11-2024 History of Present illness Narrative Images from the original note were not included. DEPARTMENT OF ORTHOPAEDICS Chief Complaint: Bilateral hip pain Patient returns for follow up of bilateral staged hip arthroscopy. Last seen 01-25-24. Patient reports no interim trauma. She reports she is doing well. She is back to work, with restrictions. She is going to PT 2x/week Goal = return to hiking She does express some discomfort on the lateral aspect of her left thigh. PHYSICAL EXAM: [facility] 12/06/2023 General: Appears stated age, well built, in no apparent distress. Psychiatric: Mood and affect appropriate. Alert and oriented x 3 without evidence of abnormal respiratory effort. Musculoskeletal Exam: Gait normal, Posture: erect and normal. Exam: Right Left Single Leg Trendelenburg Negative Positive Hip flexion 100 100 IR 20 20 ER 60 60 Anterior impingement negative negative Dynamic labral stress negative negative FAHAD negative negative Posterior Impingement negative negative MILADYS negative negative Strength Supine HF 5/5 5/5 Upright HF 5/5 5/5 Adduction 5/5 5/5 Abduction 5/5 5-/5 Tenderness with Palpation: Right Left Greater Troch Negative Negative Gluteus Medius Negative Negative Piriformis Negative Negative IMPRESSION: (S73.191D) Tear of right acetabular labrum, subsequent encounter (primary encounter diagnosis) (S73.192D) Acetabular labrum tear, left, subsequent encounter PLAN: 1. Medication: None. 2. Test(s)/Imaging/Referral(s): None. 3. Intervention: Continue conservative treatment post op stage hip arthroscopy. Patient is progressing well. Continue with PT per protocol. Discussed keeping the same work restrictions (updated letter provided today) however if she feels she is ready at some point prior to her next visit to lift some of her work restrictions she will let us know. Patient is on board with the plan and all questions were answered. They will let us know if there are any issues in the interim. 4. Follow-up: Return in about 8 weeks (around 05/06/2024). Scribe Attestation: By signing my name below, I, AUSTIN Yung, attest that this documentation has been prepared under the direction and in the presence of Betsey aPrtida M.D. Electronically Signed:AUSTIN Yung, March 11, 2024 10:51 AM I agree with the Chief Complaint, ROS, and Past Histories independently gathered by the clinical litigation support analyst and the remaining scribed note accurately describes my personal service to the patient. Betsey Partida MD documented in this encounter [facility] 03-10-2024 Note HNO ID: [id number] Author: JAJA LEONARD, PT Service: ? Author Type: Physical Therapist Type: Progress Notes Filed: 03/11/2024 10:21 Note Text: Episode Visit Count: 21 Therapist That Will Accept/Oversee The Plan Of Care: Jaja Leonard Start of Care Date: 11/02/23 Onset Date: 11/01/23 Plan of Care Certification Date: 02/20/24 Next Certification Due Date: 03/26/24 Patient Identified by Name and Date of : Yes REHABILITATION AND SPORTS THERAPY PHYSICAL THERAPY TREATMENT NOTE ASSESSMENT: Bessie Solomon tolerated the session with fatigue and expected muscle soreness. She demonstrated difficulty with SLS around the world with 10# DB. The patient will continue to benefit from ongoing skilled physical therapy to progress toward set goals. PLAN FOR NEXT VISIT: Continue with advanced hip stability and strengthening exercises. SUBJECTIVE: Pt reports that her hips are feeling good today. Pain: Pain Pain Level: 0 Pain Location: Hip - Right, Hip - Left Post Treatment Pain Post Treatment Pain Level: 0 Post Treatment Pain Location: Hip - Left, Hip - Right OBJECTIVE MEASURES WITH LEVEL OF FUNCTION: TREATMENT: Therapeutic Exercise: 1: Scifit bike seat 7, 5 min, level 3, 1:1 throughout subjective collected 2: Side planks with hip abduction 2x10 B Skilled Intervention: Patient was educated in proper exercise technique and purpose for exercises. Skilled judgment was used in selection of appropriate interventions. Correct performance of therapeutic exercises was facilitated with verbal and visual cuing. Neuromuscular Re-Education: 1: Runners step up on BOSU 2x10 B 2: SLS on BOSU 3x30 seconds B 3: lifts with 5# on BOSU 4x10 4: BOSU hip abduction 2x12 B 5: SLS on foam with tapping cup with yard stick 2x10 B 6: SLS around the [place] with 10# B x10 each direction, each LE Skilled Intervention: Skilled judgment used to assess appropriate program for balance and coordination activity. Billing Therapeutic Exercise Treatment Minutes: 10 Neuromuscular Re-Education Treatment Minutes: 28 Skilled Treatment Time Minutes (timed and untimed codes): 38 Total Session Time (minutes): 38 Session Start Time : 1741 Session Stop Time : 1819 MK Mckee, PT [facility] 03-10-2024 History of Present illness Narrative Episode Visit Count: 21 Therapist That Will Accept/Oversee The Plan Of Care: Jaja Leonard Start of Care Date: 11/02/23 Onset Date: 11/01/23 Plan of Care Certification Date: 02/20/24 Next Certification Due Date: 03/26/24 Patient Identified by Name and Date of : Yes REHABILITATION AND SPORTS THERAPY PHYSICAL THERAPY TREATMENT NOTE ASSESSMENT: Bessie Solomon tolerated the session with fatigue and expected muscle soreness. She demonstrated difficulty with SLS around the world with 10# DB. The patient will continue to benefit from ongoing skilled physical therapy to progress toward set goals. PLAN FOR NEXT VISIT: Continue with advanced hip stability and strengthening exercises. SUBJECTIVE: Pt reports that her hips are feeling good today. Pain: Pain Pain Level: 0 Pain Location: Hip - Right, Hip - Left Post Treatment Pain Post Treatment Pain Level: 0 Post Treatment Pain Location: Hip - Left, Hip - Right OBJECTIVE MEASURES WITH LEVEL OF FUNCTION: TREATMENT: Therapeutic Exercise: 1: Scifit bike seat 7, 5 min, level 3, 1:1 throughout subjective collected 2: Side planks with hip abduction 2x10 B Skilled Intervention: Patient was educated in proper exercise technique and purpose for exercises. Skilled judgment was used in selection of appropriate interventions. Correct performance of therapeutic exercises was facilitated with verbal and visual cuing. Neuromuscular Re-Education: 1: Runners step up on BOSU 2x10 B 2: SLS on BOSU 3x30 seconds B 3: lifts with 5# on BOSU 4x10 4: BOSU hip abduction 2x12 B 5: SLS on foam with tapping cup with yard stick 2x10 B 6: SLS around the [place] with 10# B x10 each direction, each LE Skilled Intervention: Skilled judgment used to assess appropriate program for balance and coordination activity. Billing Therapeutic Exercise Treatment Minutes: 10 Neuromuscular Re-Education Treatment Minutes: 28 Skilled Treatment Time Minutes (timed and untimed codes): 38 Total Session Time (minutes): 38 Session Start Time : 1742 Session Stop Time : 1820 MK Mckee PT documented in this encounter [facility] 03-05-2024 History of Present illness Narrative Program_ID:[id number] Access Code: [email or web address] URL: [email or web address] Date: 03-05-2024 Prepared By: Jaja Leonard Program Notes Exercises - Runner's Step Up on BOSU Ball - 1 x daily - 7 x weekly - 2 sets - 12 reps - Squat on BOSU Ball - 1 x daily - 7 x weekly - 2 sets - 15 reps - Standing Hip Abduction on BOSU Ball - 1 x daily - 7 x weekly - 2 sets - 12 reps - Single Leg Balance on BOSU Ball - 1 x daily - 7 x weekly - 4 sets - reps - cc BOSU Deadlift - 1 x daily - 7 x weekly - 4 sets - 10 reps Episode Visit Count: 20 Therapist That Will Accept/Oversee The Plan Of Care: Jaja Leonard Start of Care Date: 11/02/23 Onset Date: 11/01/23 Plan of Care Certification Date: 02/20/24 Next Certification Due Date: 03/26/24 REHABILITATION AND SPORTS THERAPY PHYSICAL THERAPY TREATMENT NOTE ASSESSMENT: Bessie Solomon tolerated the session with decreased symptoms. She demonstrated difficulty with RLE single leg standing balance activities on BOSU ball as compared to the LLE. Balance on BOSU ball improved throughout the visit.. The patient will continue to benefit from ongoing skilled physical therapy to progress toward set goals. PLAN FOR NEXT VISIT: assess symtomp response to BOSU ball balance and hip stabilization strengthening exercises SUBJECTIVE: Post-op week 12 Pain: Pain Pain Level: 0 Post Treatment Pain Post Treatment Pain Level: 0 Post Treatment Pain Location: Hip - Left, Hip - Right OBJECTIVE MEASURES WITH LEVEL OF FUNCTION: TREATMENT: Therapeutic Exercise: 1: Scifit bike seat 7, 5 min, level 3, 1:1 throughout subjective collected Skilled Intervention: Patient was educated in proper exercise technique and purpose for exercises. Skilled judgment was used in selection of appropriate interventions. Provided written instruction for home exercise program to facilitate proper performance and compliance. Correct performance of therapeutic exercises was facilitated with verbal, visual, and tactile cuing. Educated patient on rationale for performing exercises in regards to decreasing fatigue , including balance, increase ease of ADL, and ROM and function . Patient education as noted. Neuromuscular Re-Education: 1: BOSU ball step ups 1x10 each side lead 2: *Access Code: [email or web address] URL: [email or web address] Date: 03/05/2024 Prepared by: Jaja Jean Exercises - Runner's Step Up on BOSU Ball - 1 x daily - 7 x weekly - 2 sets - 12 reps - Squat on BOSU Ball - 1 x daily - 7 x weekly - 2 sets - 15 reps - Standing Hip Abduction on BOSU Ball - 1 x daily - 7 x weekly - 2 sets - 12 reps - Single Leg Balance on BOSU Ball - 1 x daily - 7 x weekly - 4 sets - 30 hold - cc BOSU Deadlift - 1 x daily - 7 x weekly - 4 sets - 10 reps Skilled Intervention: Education in proprioceptive/kinesthetic awareness during dynamic activities. Ensured patient safety with use of // bars within reach Reviewed and educated patient on additions/changes for home program as noted above with an (*). Patient education as noted. Billing Therapeutic Exercise Treatment Minutes: 5 Neuromuscular Re-Education Treatment Minutes: 35 Skilled Treatment Time Minutes (timed and untimed codes): 40 Total Session Time (minutes): 40 Session Start Time : 1745 Session Stop Time : 1825 Jaja Leonard PT documented in this encounter [facility] 03-05-2024 Note HNO ID: [id number] Author: JAJA LEONARD PT Service: ? Author Type: Physical Therapist Type: Progress Notes Filed: 03/05/2024 18:25 Note Text: Episode Visit Count: 20 Therapist That Will Accept/Oversee The Plan Of Care: Jaja Leonard Start of Care Date: 11/02/23 Onset Date: 11/01/23 Plan of Care Certification Date: 02/20/24 Next Certification Due Date: 03/26/24 REHABILITATION AND SPORTS THERAPY PHYSICAL THERAPY TREATMENT NOTE ASSESSMENT: Bessie Solomon tolerated the session with decreased symptoms. She demonstrated difficulty with RLE single leg standing balance activities on BOSU ball as compared to the LLE. Balance on BOSU ball improved throughout the visit.. The patient will continue to benefit from ongoing skilled physical therapy to progress toward set goals. PLAN FOR NEXT VISIT: assess symtomp response to BOSU ball balance and hip stabilization strengthening exercises SUBJECTIVE: Post-op week 12 Pain: Pain Pain Level: 0 Post Treatment Pain Post Treatment Pain Level: 0 Post Treatment Pain Location: Hip - Left, Hip - Right OBJECTIVE MEASURES WITH LEVEL OF FUNCTION: TREATMENT: Therapeutic Exercise: 1: Scifit bike seat 7, 5 min, level 3, 1:1 throughout subjective collected Skilled Intervention: Patient was educated in proper exercise technique and purpose for exercises. Skilled judgment was used in selection of appropriate interventions. Provided written instruction for home exercise program to facilitate proper performance and compliance. Correct performance of therapeutic exercises was facilitated with verbal, visual, and tactile cuing. Educated patient on rationale for performing exercises in regards to decreasing fatigue , including balance, increase ease of ADL, and ROM and function . Patient education as noted. Neuromuscular Re-Education: 1: BOSU ball step ups 1x10 each side lead 2: *Access Code: [email or web address] URL: [email or web address] Date: 03/05/2024 Prepared by: Jaja Leonard Exercises - Runner's Step Up on BOSU? Ball - 1 x daily - 7 x weekly - 2 sets - 12 reps - Squat on BOSU? Ball - 1 x daily - 7 x weekly - 2 sets - 15 reps - Standing Hip Abduction on BOSU? Ball - 1 x daily - 7 x weekly - 2 sets - 12 reps - Single Leg Balance on BOSU? Ball - 1 x daily - 7 x weekly - 4 sets - 30 hold - cc BOSU Deadlift - 1 x daily - 7 x weekly - 4 sets - 10 reps Skilled Intervention: Education in proprioceptive/kinesthetic awareness during dynamic activities. Ensured patient safety with use of // bars within reach Reviewed and educated patient on additions/changes for home program as noted above with an (*). Patient education as noted. Billing Therapeutic Exercise Treatment Minutes: 5 Neuromuscular Re-Education Treatment Minutes: 35 Skilled Treatment Time Minutes (timed and untimed codes): 40 Total Session Time (minutes): 40 Session Start Time : 1746 Session Stop Time : 1826 Jaja Leonard PT [facility] 02-27-2024 Note HNO ID: [id number] Author: JAJA LEONARD PT Service: ? Author Type: Physical Therapist Type: Progress Notes Filed: 02/28/2024 08:01 Note Text: Episode Visit Count: 19 Therapist That Will Accept/Oversee The Plan Of Care: Jaja Leonard Start of Care Date: 11/02/23 Onset Date: 11/01/23 Plan of Care Certification Date: 02/20/24 Next Certification Due Date: 03/26/24 Patient Identified by Name and Date of : Yes REHABILITATION AND SPORTS THERAPY PHYSICAL THERAPY TREATMENT NOTE ASSESSMENT: Bessie Solomon tolerated the session with fatigue and expected muscle soreness. She demonstrated difficulty with SLS with around the world KB passes. The patient will continue to benefit from ongoing skilled physical therapy to progress toward set goals. PLAN FOR NEXT VISIT: Continue per protocol, pt is 11 weeks p.o SUBJECTIVE: Pt reports that her hips are feeling good today. Pt states that she was tired and sore after last session. Pain: Pain Pain Location: Hip - Left, Hip - Right Post Treatment Pain Post Treatment Pain Level: 0 Post Treatment Pain Location: Hip - Left, Hip - Right Post Treatment Symptoms: Fatigue OBJECTIVE MEASURES WITH LEVEL OF FUNCTION: Increased difficulty with SLS exercises on R vs. L. TREATMENT: Therapeutic Exercise: 1: Scifit up right bike x 5 min, seat 7, 1:1 throughout , level 3 (subjective collected) 2: Single leg hip abduction iso with ball at edge of table x 30 seconds B 3: Side planks with hip abduction 3x10 B 4: Squats on flat side of BOSU 3x10 5: Slide board, shortest distance 3x [address] Skilled Intervention: Patient was educated in proper exercise technique and purpose for exercises. Skilled judgment was used in selection of appropriate interventions. Correct performance of therapeutic exercises was facilitated with verbal and visual cuing. Neuromuscular Re-Education: 1: SLS on foam , hip hinges to 17 inches 2x10 B 2: B hip hinges on foam to 17 inches x10 3: SLS around the [place] with 10# B x10 each direction, each LE Skilled Intervention: Skilled judgment used to assess appropriate program for balance and coordination activity. Billing Therapeutic Exercise Treatment Minutes: 24 Neuromuscular Re-Education Treatment Minutes: 15 Skilled Treatment Time Minutes (timed and untimed codes): 39 Total Session Time (minutes): 39 Session Start Time : 1753 Session Stop Time : 1832 MK Mckee, PT [facility] 02-27-2024 History of Present illness Narrative Episode Visit Count: 19 Therapist That Will Accept/Oversee The Plan Of Care: Jaja Leonard Start of Care Date: 11/02/23 Onset Date: 11/01/23 Plan of Care Certification Date: 02/20/24 Next Certification Due Date: 03/26/24 Patient Identified by Name and Date of : Yes REHABILITATION AND SPORTS THERAPY PHYSICAL THERAPY TREATMENT NOTE ASSESSMENT: Bessie Solomon tolerated the session with fatigue and expected muscle soreness. She demonstrated difficulty with SLS with around the world KB passes. The patient will continue to benefit from ongoing skilled physical therapy to progress toward set goals. PLAN FOR NEXT VISIT: Continue per protocol, pt is 11 weeks p.o SUBJECTIVE: Pt reports that her hips are feeling good today. Pt states that she was tired and sore after last session. Pain: Pain Pain Location: Hip - Left, Hip - Right Post Treatment Pain Post Treatment Pain Level: 0 Post Treatment Pain Location: Hip - Left, Hip - Right Post Treatment Symptoms: Fatigue OBJECTIVE MEASURES WITH LEVEL OF FUNCTION: Increased difficulty with SLS exercises on R vs. L. TREATMENT: Therapeutic Exercise: 1: Scifit up right bike x 5 min, seat 7, 1:1 throughout , level 3 (subjective collected) 2: Single leg hip abduction iso with ball at edge of table x 30 seconds B 3: Side planks with hip abduction 3x10 B 4: Squats on flat side of BOSU 3x10 5: Slide board, shortest distance 3x [address] Skilled Intervention: Patient was educated in proper exercise technique and purpose for exercises. Skilled judgment was used in selection of appropriate interventions. Correct performance of therapeutic exercises was facilitated with verbal and visual cuing. Neuromuscular Re-Education: 1: SLS on foam , hip hinges to 17 inches 2x10 B 2: B hip hinges on foam to 17 inches x10 3: SLS around the [place] with 10# B x10 each direction, each LE Skilled Intervention: Skilled judgment used to assess appropriate program for balance and coordination activity. Billing Therapeutic Exercise Treatment Minutes: 24 Neuromuscular Re-Education Treatment Minutes: 15 Skilled Treatment Time Minutes (timed and untimed codes): 39 Total Session Time (minutes): 39 Session Start Time : 1753 Session Stop Time : 1832 Clair Melendez B[employer] P[employer]ER Jaja Leonard PT documented in this encounter [facility] 02-25-2024 Note HNO ID: [id number] Author: JAJA LEONARD PT Service: ? Author Type: Physical Therapist Type: Progress Notes Filed: 02/26/2024 08:13 Note Text: Episode Visit Count: 18 Therapist That Will Accept/Oversee The Plan Of Care: Jaja Leonard Start of Care Date: 11/02/23 Onset Date: 11/01/23 Plan of Care Certification Date: 02/20/24 Next Certification Due Date: 03/26/24 Patient Identified by Name and Date of : Yes REHABILITATION AND SPORTS THERAPY PHYSICAL THERAPY TREATMENT NOTE ASSESSMENT: Bessie Solomon tolerated the session with fatigue and expected muscle soreness. She demonstrated difficulty with R sideplank with L hip abduction this visit. The patient will continue to benefit from ongoing skilled physical therapy to progress toward set goals. PLAN FOR NEXT VISIT: COntinue with hip abduction strengthening. SUBJECTIVE: Pt reports that her hips are feeling good today. Pain: Pain Pain Level: 0 Pain Location: Hip - Left, Hip - Right Post Treatment Pain Post Treatment Pain Level: 0 Post Treatment Pain Location: Hip - Left, Hip - Right OBJECTIVE MEASURES WITH LEVEL OF FUNCTION: Challenged with squats on BOSU. TREATMENT: Therapeutic Exercise: 1: Scifit up right bike x 5 min, seat 7, 1:1 throughout , level 3 (subjective collected) 2: Plank in push up position with hip extension 3x10 B 3: Side planks with hip abduction 3x10 B 4: Slide board, shortest distance 3x [address] 5: Squats on flat side of BOSU 3x10 6: Long sitting plantar fascia stretch 3x30 seconds B Skilled Intervention: Patient was educated in proper exercise technique and purpose for exercises. Skilled judgment was used in selection of appropriate interventions. Correct performance of therapeutic exercises was facilitated with verbal and visual cuing. Neuromuscular Re-Education: 1: leaping R to L LE 2x10 2: DL hopping 2x30 seconds 3: leaping R to L LE 2x10 4: DL hopping front to back 2x10 Skilled Intervention: Skilled judgment used to assess appropriate program for balance and coordination activity. Billing Therapeutic Exercise Treatment Minutes: 23 Neuromuscular Re-Education Treatment Minutes: 18 Skilled Treatment Time Minutes (timed and untimed codes): 41 Total Session Time (minutes): 41 Session Start Time : 175 Session Stop Time : 1830 Clair Paintingparris, BONE PULLER Jaja Leonard, PT [facility] 02-25-2024 History of Present illness Narrative Episode Visit Count: 18 Therapist That Will Accept/Oversee The Plan Of Care: Jaja Leonard Start of Care Date: 11/02/23 Onset Date: 11/01/23 Plan of Care Certification Date: 02/20/24 Next Certification Due Date: 03/26/24 Patient Identified by Name and Date of : Yes REHABILITATION AND SPORTS THERAPY PHYSICAL THERAPY TREATMENT NOTE ASSESSMENT: Bessie Solomon tolerated the session with fatigue and expected muscle soreness. She demonstrated difficulty with R sideplank with L hip abduction this visit. The patient will continue to benefit from ongoing skilled physical therapy to progress toward set goals. PLAN FOR NEXT VISIT: COntinue with hip abduction strengthening. SUBJECTIVE: Pt reports that her hips are feeling good today. Pain: Pain Pain Level: 0 Pain Location: Hip - Left, Hip - Right Post Treatment Pain Post Treatment Pain Level: 0 Post Treatment Pain Location: Hip - Left, Hip - Right OBJECTIVE MEASURES WITH LEVEL OF FUNCTION: Challenged with squats on BOSU. TREATMENT: Therapeutic Exercise: 1: Scifit up right bike x 5 min, seat 7, 1:1 throughout , level 3 (subjective collected) 2: Plank in push up position with hip extension 3x10 B 3: Side planks with hip abduction 3x10 B 4: Slide board, shortest distance 3x [address] 5: Squats on flat side of BOSU 3x10 6: Long sitting plantar fascia stretch 3x30 seconds B Skilled Intervention: Patient was educated in proper exercise technique and purpose for exercises. Skilled judgment was used in selection of appropriate interventions. Correct performance of therapeutic exercises was facilitated with verbal and visual cuing. Neuromuscular Re-Education: 1: leaping R to L LE 2x10 2: DL hopping 2x30 seconds 3: leaping R to L LE 2x10 4: DL hopping front to back 2x10 Skilled Intervention: Skilled judgment used to assess appropriate program for balance and coordination activity. Billing Therapeutic Exercise Treatment Minutes: 23 Neuromuscular Re-Education Treatment Minutes: 18 Skilled Treatment Time Minutes (timed and untimed codes): 41 Total Session Time (minutes): 41 Session Start Time : 1750 Session Stop Time : 1830 MK Mckee PT documented in this encounter [facility] 02-20-2024 History of Present illness Narrative Program_ID:[id number] Access Code: [email or web address] URL: [email or web address] Date: 02-20-2024 Prepared By: Jaja Leonard Program Notes Exercises - Seated Ankle Inversion Eversion PROM - 2-3 x daily - 7 x weekly - 3 sets - 1 reps - Modified Side Plank with Hip Abduction - 1 x daily - 7 x weekly - 2-4 sets - 10 reps - Full Plank with Hip Extension - Knee Straight - 1 x daily - 7 x weekly - 3 sets - 10 reps - Lower Quarter Reach Combination - 1 x daily - 7 x weekly - 3 sets - 12 reps Images from the original note were not included. Episode Visit Count: 17 Therapist That Will Accept/Oversee The Plan Of Care: Jaja Leonard Start of Care Date: 11/02/23 Onset Date: 11/01/23 Plan of Care Certification Date: 02/20/24 Next Certification Due Date: 03/26/24 REHABILITATION AND SPORTS THERAPY PHYSICAL THERAPY PROGRESS REPORT PLAN OF CARE UPDATE: Assessment: Bessie Solomon demonstrates improvements in rising from a chair, walking, stair negotiation, physical activities, and kneeling. She has progressed toward goals. Patient continues to present with impairments in ADL's, balance, flexibility, gait, independence in exercise, overall function, patient reported outcome measures, strength, and tissue tenderness that interfere with physical activities, running, jumping, squatting, carrying, lifting . Current prognosis is Good due to: current objective clinical presentation, good overall health status, acuteness of condition, positive past response to therapy, within-session changes, good support system/ coping skills . She will benefit from continued skilled therapy services to meet the updated goals for this plan of care as noted below. Goals for Episode of Care: created on through 02/22/24 Goals updated on 12/07/2023 through 02/10/24 Goals updated on 12/14/2023 through 01/11/24 Goals updated on 01/08/2024 through 02/12/24 Goals updated on 02/20/2024 through 03/26/24 [place] in home exercise program. -- MET Patient will decrease pain rating by 2 points to meet minimal clinical important difference for numeric pain rating scale. --R and L side -- MET Patient will increase active ROM of R hip to 120 flexion to allow pt to to improve postural alignment. -- MET Patient will demonstrate increase in R and L hip flexion, extension, abduction, IR, and ER strength to 4/5 during manual muscle testing in order to improve function for prior functional tasks. -- PROGRESSING, RLE hip abd 4-/5 Perform transitional sit <> stand with decreased report of symptoms/pain and with independence in 13 weeks. -- MET Normal gait. --MET Reciprocal stair negotiation. -- MET, but with stiffness Patient will increase balance to 20 seconds for single limb stance on RLE and 20 seconds for single limb stance on LLE. -- MET Patient will demonstrate improved neuromuscular coordination as evidenced by improve function for prior functional tasks. -- PROGRESSING Patient Goals: restore functional ROM and strength of the RLE hip -- PROGRESSING abd strength R leg Patient Goals: restore functional ROM and strength of the RLE hip Planned Interventions, Frequency, and Duration: 1x/week, 6 weeks Total Number of Visits Planned: 6 Patient to be seen for Therapeutic exercise (90907), Manual therapy (14450), Self-prison management ([id number]), Gait Training (29629), Therapeutic activities (55102), Neuromuscular re-education (63450) PLAN FOR NEXT VISIT: continue per protocol SUBJECTIVE: She has intermittent calf pain that reduces with stretching.. Patient Goals: restore functional ROM and strength of the RLE hip Functional Limitations: physical activities, running, jumping, squatting, carrying, lifting Pain: Pain Pain Level: 0 Pain Location: Hip - Left, Hip - Right Post Treatment Pain Post Treatment Pain Level: 0 Post Treatment Pain Location: Hip - Left, Hip - Right PROMIS Scales 02/04/2024 01/28/2024 01/07/2024 Higher is Better Phys Func - Score 38 (moderate dysfunction) Phys Func - Percentile 12 Self-Eff Symptom - Score 42 (Average) 50 (Average) Self-Eff Symptom - Percentile 21 50 T-scores: mean of general population = 50. 5 points is clinically meaningfully difference Percentiles provide an indication of how the patient's score ranks in relation to the general population. Higher percentile rankings indicate better function/quality of life. 50th percentile is the average of the general population and indicates half of respondents had a worse score. OBJECTIVE MEASURES WITH LEVEL OF FUNCTION: LE Strength R Hip Extension: 5/5 R Hip ABduction: 4-/5 R Hip Internal Rotation: 4/5 R Hip External Rotation: 4/5 L Hip Extension: 5/5 L Hip ABduction: 4/5 L Hip Internal Rotation: 4/5 L Hip External Rotation: 4/5 Gait Gait Distance (feet): 40 Gait Device: None Gait Observation: few steps with reduced L heel strike TREATMENT: Therapeutic Exercise: 1: Scifit up right bike x 5 min, seat 7, 1:1 throughout , level 3 (subjective collected) 2: *Access Code: [email or web address] URL: [email or web address] Date: 02/20/2024 Prepared by: Jaja Jean Exercises - Seated Ankle Inversion Eversion PROM - 2-3 x daily - 7 x weekly - 3 sets - 1 reps - 30 hold - Modified Side Plank with Hip Abduction - 1 x daily - 7 x weekly - 2-4 sets - 10 reps - Full Plank with Hip Extension - Knee Straight - 1 x daily - 7 x weekly - 3 sets - 10 reps - Lower Quarter Reach Combination - 1 x daily - 7 x weekly - 3 sets - 12 reps Skilled Intervention: Patient was educated in proper exercise technique and purpose for exercises. Skilled judgment was used in selection of appropriate interventions. Provided written instruction for home exercise program to facilitate proper performance and compliance. Correct performance of therapeutic exercises was facilitated with verbal, visual, and tactile cuing. Educated patient on rationale for performing exercises in regards to decreasing fatigue , including balance, increase ease of ADL, and ROM and function . Patient education as noted. Neuromuscular Re-Education: 1: DL hopping 2x10 2: DL hopping side to side 2x10 3: leaping R to L LE 2x10 4: single leg bird dips 2x10 each side to touch chair seat 5: single leg bird dips 2x10 each side to touch 12 surface Skilled Intervention: Skilled judgment used to assess appropriate program for balance and coordination activity. Education in proprioceptive/kinesthetic awareness during standing and dynamic activities. Patient education as noted. Billing Therapeutic Exercise Treatment Minutes: 18 Neuromuscular Re-Education Treatment Minutes: 22 Skilled Treatment Time Minutes (timed and untimed codes): 40 Total Session Time (minutes): 40 Session Start Time : 1752 Session Stop Time : 1832 Jaja Leonard PT documented in this encounter [facility] 02-11-2024 History of Present illness Narrative Episode Visit Count: 16 Therapist That Will Accept/Oversee The Plan Of Care: Jaja Leonard Start of Care Date: 11/02/23 Onset Date: 11/01/23 Plan of Care Certification Date: 01/08/24 Next Certification Due Date: 02/12/24 Patient Identified by Name and Date of : Yes REHABILITATION AND SPORTS THERAPY PHYSICAL THERAPY TREATMENT NOTE ASSESSMENT: Bessie Solomon tolerated the session with fatigue and decreased symptoms. She demonstrated improvements in walking and L calf tightness after STM. The patient will continue to benefit from ongoing skilled physical therapy to progress toward set goals. PLAN FOR NEXT VISIT: Continue per protocol SUBJECTIVE: Pt states that her HS are better. Pt states that it feels like she has a [place] splint on the lateral calf on L side. Pain: Pain Pain Level: 0 Pain Location: Hip - Left (hamstring tightness) Pain Level 2: 0 Pain Location 2: Hip - Right Post Treatment Pain Post Treatment Pain Level: 0 Post Treatment Pain Location: Hip - Left, Hip - Right OBJECTIVE MEASURES WITH LEVEL OF FUNCTION: TTP L gastroc TREATMENT: Therapeutic Exercise: 1: Scifit up right bike x 5 min, seat 7, 1:1 throughout , level 3 (subjective collected) 2: Demonstration of calf stretching both in sitting and standing due to pinching sensatiion in posterior, lateral calf 3: planks on forearms and on knees with feet crossed 3x30 seconds Skilled Intervention: Patient was educated in proper exercise technique and purpose for exercises. Skilled judgment was used in selection of appropriate interventions. Correct performance of therapeutic exercises was facilitated with verbal and visual cuing. Manual Therapy: 1: STM over L lateral calf x 8 minutes, pt reported pinching and tightness, flet looser afterwards and no limping with walking. Skilled Intervention: Manual skills to improve joint mobility, ROM, and decrease pain. Utilized anatomy knowledge of the therapist, and assessment of patient's response to intervention. Neuromuscular Re-Education: 1: L SLS on foam with ball toss into rebounder 3x10 2: Tandem walking on foam beams x 4 rounds 3: SIde stepping on foam beams x 2 rounds each direction Skilled Intervention: Skilled judgment used to assess appropriate program for balance and coordination activity. Billing Therapeutic Exercise Treatment Minutes: 10 Manual TherapyTreatment Minutes: 8 Neuromuscular Re-Education Treatment Minutes: 24 Skilled Treatment Time Minutes (timed and untimed codes): 42 Total Session Time (minutes): 42 Session Start Time : 171 Session Stop Time : 175 MK Mckee PT documented in this encounter [facility] 02-06-2024 History of Present illness Narrative Program_ID:[id number] Access Code: [email or web address] URL: [email or web address] Date: 02-06-2024 Prepared By: Jaja Leonard Program Notes Exercises - Supine Isometric Hamstring Set - 2-3 x daily - 7 x weekly - 5 sets - 1 reps - Quadruped Alternating Arm Lift - 1 x daily - 7 x weekly - 4 sets - 16 reps - Quadruped Alternating Leg Extensions - 1 x daily - 7 x weekly - 4 sets - 16 reps - Bird Dog - 1 x daily - 7 x weekly - 4 sets - 6 reps Episode Visit Count: 15 Therapist That Will Accept/Oversee The Plan Of Care: Jaja Leonard Start of Care Date: 11/02/23 Onset Date: 11/01/23 Plan of Care Certification Date: 01/08/24 Next Certification Due Date: 02/12/24 REHABILITATION AND SPORTS THERAPY PHYSICAL THERAPY TREATMENT NOTE ASSESSMENT: Bessie Solomon tolerated the session with decreased symptoms. She demonstrated improvements in L HS pain following supine repeated L HS isometrics x 10 sec hold 5x. The patient will continue to benefit from ongoing skilled physical therapy to progress toward set goals. PLAN FOR NEXT VISIT: continue per protocol post op wk 9 SUBJECTIVE: post- op wk 8. L HS pain with standing from prolonged sitting. Does reduce with walking. Denies hip pain. Patient Goals: restore functional ROM and strength of the RLE hip Pain: Pain Pain Level: 1 Pain Location: Hip - Left (hamstring tightness) Pain Level 2: 0 Pain Location 2: Hip - Right Post Treatment Pain Post Treatment Pain Location: Hip - Left, Hip - Right OBJECTIVE MEASURES WITH LEVEL OF FUNCTION: TREATMENT: Therapeutic Exercise: 1: *Access Code: [email or web address] URL: [email or web address] Date: 02/06/2024 Prepared by: Jaja Jean Exercises - Hip Extension with Single Leg Support Prone on Table Edge - 2 x daily - 7 x weekly - 4 sets - 12 reps - 1 hold - Supine Isometric Hamstring Set - 2-3 x daily - 7 x weekly - 5 sets - 1 reps - 5 hold - Quadruped Alternating Arm Lift - 1 x daily - 7 x weekly - 4 sets - 16 reps - Quadruped Alternating Leg Extensions - 1 x daily - 7 x weekly - 4 sets - 16 reps - Bird Dog - 1 x daily - 7 x weekly - 4 sets - 6 reps 2: step ups 10 1x12 each side (dc due to HS pain L) 3: lateral heel lower 6 step 2x12 each side - denies L HS pain Skilled Intervention: Patient was educated in proper exercise technique and purpose for exercises. Reviewed and educated patient on additions/changes for home exercise program as above (*). Skilled judgment was used in selection of appropriate interventions. Provided written instruction for home exercise program to facilitate proper performance and compliance. Correct performance of therapeutic exercises was facilitated with verbal, visual, and tactile cuing. Educated patient on rationale for performing exercises in regards to decreasing fatigue , including balance, increase ease of ADL, and ROM and function . Patient education as noted. Billing Therapeutic Exercise Treatment Minutes: 40 Skilled Treatment Time Minutes (timed and untimed codes): 40 Total Session Time (minutes): 40 Session Start Time : 1746 Session Stop Time : 1826 Jaja Leonard PT documented in this encounter [facility] 01-29-2024 History of Present illness Narrative Episode Visit Count: 14 Therapist That Will Accept/Oversee The Plan Of Care: Jaja Leonard Start of Care Date: 11/02/23 Onset Date: 11/01/23 Plan of Care Certification Date: 01/08/24 Next Certification Due Date: 02/12/24 REHABILITATION AND SPORTS THERAPY PHYSICAL THERAPY TREATMENT NOTE ASSESSMENT: Bessie Solomon tolerated the session with fatigue and decreased symptoms. She demonstrated improvements in leg press . The patient will continue to benefit from ongoing skilled physical therapy to progress toward set goals. PLAN FOR NEXT VISIT: SUBJECTIVE: Post op wk 7. Pt. reports some L hamstring soreness 2 days after the last visit. Pt. reports that HS stretching did not help so she iced and rested. Pt. reports feeling very tired her first day. Patient Goals: restore functional ROM and strength of the RLE hip Functional Limitations: physical activities, kneeling, running, jumping, squatting, working, carrying, lifting Pain: Pain Pain Level: 0 Pain Location: Hip - Left Pain Level 2: 0 Pain Location 2: Hip - Right Post Treatment Pain Post Treatment Pain Location: Hip - Left, Hip - Right OBJECTIVE MEASURES WITH LEVEL OF FUNCTION: TREATMENT: Therapeutic Exercise: 1: Scifit up right bike x 5 min, seat 7, 1:1 throughout x 5 min, level 3 (subjective collected) 2: 90 degrees of hip flexion leg press 3x12 each side #50 3: 90 degrees of flexion leg press 1x15 #70, 1x12 #90, 2x12 #110 Skilled Intervention: Patient was educated in proper exercise technique and purpose for exercises. Reviewed and educated patient on additions/changes for home exercise program as above (*). Skilled judgment was used in selection of appropriate interventions. Correct performance of therapeutic exercises was facilitated with verbal, visual, and tactile cuing. Educated patient on rationale for performing exercises in regards to decreasing fatigue , increase ease of ADL, and ROM and function . Patient education as noted. Neuromuscular Re-Education: 1: stepping lateral over 6 hurdles 6x6 hurdles 6x 2: fwd lateral over 6 hurdles 6x6 hurdles 6x 3: mini squats on foam 1x20 (no UE support) 4: SLS on foam 3x max attempts each side, 60 sec with CL forward, lateral, and posterior 5: BOSU ball step up and CL LE flex to 90, 3 sec hold , 1 UE support 2x10 each side Skilled Intervention: Skilled judgment used to assess appropriate program for balance and coordination activity. Education in proprioceptive/kinesthetic awareness during standing. Ensured patient safety with use of // bars. Patient education as noted. Billing Therapeutic Exercise Treatment Minutes: 15 Neuromuscular Re-Education Treatment Minutes: 25 Skilled Treatment Time Minutes (timed and untimed codes): 40 Total Session Time (minutes): 40 Session Start Time : 1656 Session Stop Time : 173 Jaja Leonard PT documented in this encounter [facility] 01-25-2024 Instructions Debbie Mustafa PA-C - 01/25/2024 4:05 PM EDT Advance activity per PT guidance. Pool per tolerance - NO breast stroke, scissor kick, treading water, flip turns and pushing off the wall Begin/ advance low impact cardio: Upright stationary bike - stay seated and avoid clipping in/ strapping feet to pedals on bike Elliptical avoid inclines/ declines Gentle freestyle or backstroke No impact and explosive/ ballistic activities (running, jumping, forced extremes of motion) No deep (> 90 degrees) squatting Lifting restriction max 30 pounds rarely Upper body lifting - as long feet are not in contact with ground. Do no lift and carry free weights documented in this encounter [facility] 01-25-2024 History of Present illness Narrative POST OP DIST[facility] VIRTUAL VISIT DOCUMENTATION NOTE I have communicated my name and active licensure. The patient's identity and physical location were verified at the time of this visit. Either the patient or their legal medical representative has been informed of the risks and benefits of -- and alternatives to -- treatment through a remote evaluation and consents to proceed with the evaluation remotely. Distance [facility] Platform: [employer] Virtual Visit People present : Debbie Mustafa PA-C and Patient Time Spent for video encounter, record review and documentation: 10 minutes CHIEF COMPLAINT (CC): Post op HISTORY OF PRESENT ILLNESS (HPI): 6 weeks s/p left hip arthroscopy, 3 months right arthroscopy No systemic complaints. Pain: Denies Reports both right and left hip are doing well. PT going well - advanced to closed chain exercises EXAMINATION: There is no height or weight on file to calculate BMI. This examination was performed via video enabled technology. Patient does not appear to be in any acute distress Patient is alert and oriented with normal affect Bilateral Hip Examination Inspection: Incisions well-healed bilateral hips Range of motion (patient performed these range of motions with my instruction via the video enabled technology): Hip flexion greater than 100 degrees bilateral, internal rotation 20, external rotation 50 Palpation (patient localized these landmarks with my instruction via the video enabled technology): No greater trochanteric or SI joint tenderness bilateral Special testing (patient performed these maneuvers on themselves with my instruction via the video enabled technology): FADIR: Negative FAHAD: Negative Neurologic: Intact sensation testing of the lower extremities with no dysesthesia Impression: 6 weeks s/p left hip arthroscopy, 3 months status post right hip arthroscopy Plan: Discussed Advance PT and activities per protocol. Precautions reinforced. No impact activities Follow-up: [address] Jaquan Mustafa, MS, PAJoanne documented in this encounter [facility] 01-22-2024 History of Present illness Narrative Episode Visit Count: 13 Therapist That Will Accept/Oversee The Plan Of Care: Jaja Leonard Start of Care Date: 11/02/23 Onset Date: 11/01/23 Plan of Care Certification Date: 01/08/24 Next Certification Due Date: 02/12/24 REHABILITATION AND SPORTS THERAPY PHYSICAL THERAPY TREATMENT NOTE ASSESSMENT: Bessie Solomon tolerated the session with fatigue. She demonstrated difficulty with L hip ER in hook lying bent knee fall outs as compared to the RLE. The patient will continue to benefit from ongoing skilled physical therapy to progress toward set goals. PLAN FOR NEXT VISIT: SUBJECTIVE: post- op week 5. Pt. reports no pain. She had pinching pain that resolved with completing her HEP. Denies LBP. Pain: Pain Pain Level: 0 Pain Location: Hip - Left Pain Level 2: 0 Pain Location 2: Hip - Right Post Treatment Pain Post Treatment Pain Location: Hip - Left, Hip - Right OBJECTIVE MEASURES WITH LEVEL OF FUNCTION: TREATMENT: Therapeutic Exercise: 1: seated on upright PushToTest bike seat 7, level 3, subjective collected 1:1 throughout x 5 min 2: supine bent knee fall outs 10x each side 5 sec hold (increased tightness on the LLE with ER) 3: 90 degrees of flexion leg press 12x#50 4: 90 degrees of flexion leg press 3x12 #70 5: 90 degrees of hip flexion leg press 1x8 each side #50 6: 90 degrees of hip flexion leg press 3x12 each side #50 Skilled Intervention: Patient was educated in proper exercise technique and purpose for exercises. Skilled judgment was used in selection of appropriate interventions. Correct performance of therapeutic exercises was facilitated with verbal, visual, and tactile cuing. Educated patient on rationale for performing exercises in regards to decreasing fatigue , increase ease of ADL, and ROM and function . Patient education as noted. Neuromuscular Re-Education: 1: weight shifting side to side firm surface 1 min 2x 2: double stance on foam 60 sec 3: SLS 3x 20 sec each side, emphasis on avoiding trendelenburg firm surface 4: SLS 3x 20 sec each side, emphasis on avoiding trendelenburg foam surface 5: SLS on foam hip extension without UE support 5x each side 6: side stepping 20' 6x each direction (pt reports more difficulty with LLE lead and pushing off the RLE) Skilled Intervention: Skilled judgment used to assess appropriate program for balance and coordination activity. Education in proprioceptive/kinesthetic awareness during standing balance activities. Reviewed and educated patient on additions/changes for home program as noted above with an (*). Patient education as noted. Billing Therapeutic Exercise Treatment Minutes: 15 Neuromuscular Re-Education Treatment Minutes: 25 Skilled Treatment Time Minutes (timed and untimed codes): 40 Total Session Time (minutes): 40 Session Start Time : 1658 Session Stop Time : 1738 Jaja Leonard PT documented in this encounter [facility] 01-15-2024 History of Present illness Narrative Program_ID:[id number] Access Code: [email or web address] URL: [email or web address] Date: 01-15-2024 Prepared By: Jaja Leonard Program Notes Exercises - Gastroc Stretch on Wall - 2-3 x daily - 7 x weekly - 3 sets - 1 reps - Bent Knee Fallouts - 2 x daily - 7 x weekly - 4 sets - 20 reps - Plank on Knees - 2 x daily - 7 x weekly - 4 sets - reps - Side Plank on Knees - 2 x daily - 7 x weekly - 4 sets - reps - Side Plank on Knees - 2 x daily - 7 x weekly - 4 sets - reps - Sidelying Hip Abduction - 2 x daily - 7 x weekly - 4 sets - 10 reps - Hip Extension with Single Leg Support Prone on Table Edge - 2 x daily - 7 x weekly - 4 sets - 10 reps Episode Visit Count: 12 Therapist That Will Accept/Oversee The Plan Of Care: Jaja Leonard Start of Care Date: 11/02/23 Onset Date: 11/01/23 Plan of Care Certification Date: 01/08/24 Next Certification Due Date: 02/12/24 REHABILITATION AND SPORTS THERAPY PHYSICAL THERAPY TREATMENT NOTE ASSESSMENT: Bessie Solomon tolerated the session with decreased symptoms. She demonstrated difficulty with L side planks and bent knee fall outs as compared to the right side. The patient will continue to benefit from ongoing skilled physical therapy to progress toward set goals. PLAN FOR NEXT VISIT: Continue phase II SUBJECTIVE: post- op week 4. Pt. reports no pain. Patient Goals: restore functional ROM and strength of the RLE hip Functional Limitations: physical activities, kneeling, running, jumping, squatting, working, carrying, lifting Pain: Pain Pain Level: 0 Pain Location: Hip - Left Additional Pain Information : Location 2 Pain Level 2: 0 Pain Location 2: Hip - Right Post Treatment Pain Post Treatment Pain Level: 0 Post Treatment Pain Location: Hip - Left, Hip - Right Post Treatment Symptoms: pt.reports less stiffness than when she arrived OBJECTIVE MEASURES WITH LEVEL OF FUNCTION: TREATMENT: Therapeutic Exercise: 1: seated on upright scifit bike seat 7, level 2, subjective collected 1:1 throughout x 5 min 2: *Access Code: [email or web address] URL: [email or web address] Date: 01/15/2024 Prepared by: Jaja Jean Exercises - Gastroc Stretch on Wall - 2-3 x daily - 7 x weekly - 3 sets - 1 reps - 30 hold - Bent Knee Fallouts - 2 x daily - 7 x weekly - 4 sets - 20 reps - 1 hold - Plank on Knees - 2 x daily - 7 x weekly - 4 sets - 30 hold - Side Plank on Knees - 2 x daily - 7 x weekly - 4 sets - 30 hold - Side Plank on Knees (Mirrored) - 2 x daily - 7 x weekly - 4 sets - 30 hold - Sidelying Hip Abduction - 2 x daily - 7 x weekly - 4 sets - 10 reps - 1 hold - Hip Extension with Single Leg Support Prone on Table Edge - 2 x daily - 7 x weekly - 4 sets - 10 reps - 1 hold Skilled Intervention: Patient was educated in [...] and function . Patient education as noted. Billing Therapeutic Exercise Treatment Minutes: 40 Skilled Treatment Time Minutes (timed and untimed codes): 40 Total Session Time (minutes): 40 Session Start Time : 1630 Session Stop Time : 1710 Jaja Leonard PT documented in this encounter [facility] 01-08-2024 History of Present illness Narrative Program_ID:[id number] Access Code: [email or web address] URL: [email or web address] Date: 01-08-2024 Prepared By: Jaja Leonard Program Notes Exercises - Supine Bridge - 1-2 x daily - 7 x weekly - 3-4 sets - 10 reps - Quadruped Rocking Slow - 1-2 x daily - 7 x weekly - 3 sets - 10 reps - Prone Hip Extension - 1-2 x daily - 7 x weekly - 4 sets - 10 reps - Clamshell - 1-2 x daily - 7 x weekly - 4 sets - 15 reps - Standing Heel Raises - 1-2 x daily - 7 x weekly - 3 sets - 10 reps - Mini Squat - 1-2 x daily - 7 x weekly - 3 sets - 10 reps - Prone Heel Squeeze - 1-2 x daily - 7 x weekly - 5 sets - 1 reps - Prone Hip Internal Rotation AROM - 1-2 x daily - 7 x weekly - 5 sets - 1 reps - Supine Single Knee to Chest Stretch - 1-2 x daily - 7 x weekly - 3 sets - 1 reps - Standing Hip Internal Rotation AAROM on Stool - 1-2 x daily - 7 x weekly - 3 sets - 10 reps Images from the original note were not included. Episode Visit Count: 11 Therapist That Will Accept/Oversee The Plan Of Care: Jaja Leonard Start of Care Date: 11/02/23 Onset Date: 11/01/23 Plan of Care Certification Date: 01/08/24 Next Certification Due Date: 02/12/24 REHABILITATION AND SPORTS THERAPY PHYSICAL THERAPY PROGRESS REPORT PLAN OF CARE UPDATE: Assessment: Bessie Solomon demonstrates improvements in sitting, rising from a chair, standing, walking, walking in the house, walking in the community, stair negotiation, sleeping, driving, cleaning, cooking, dressing, grooming, and weight bearing. She has progressed toward goals. Patient continues to present with impairments in ADL's, balance, gait, independence in exercise, joint mobility, overall function, patient reported outcome measures, range of motion, strength, symptom management, and tissue tenderness that interfere with physical activities, kneeling, running, jumping, squatting, working, carrying, lifting . Current prognosis is Good due to: current objective clinical presentation, good overall health status, acuteness of condition, positive past response to therapy, within-session changes, good support system/ coping skills . She will benefit from continued skilled therapy services to meet the updated goals for this plan of care as noted below. Goals for Episode of Care: created on through 02/22/24 Goals updated on 12/07/2023 through 02/10/24 Goals updated on 12/14/2023 through 01/11/24 Goals updated on 01/08/2024 through 02/12/24 [place] in home exercise program. -- MET Patient will decrease pain rating by 2 points to meet minimal clinical important difference for numeric pain rating scale. --R and L side -- MET Patient will increase active ROM of R hip to 120 flexion to allow pt to to improve postural alignment. -- MET Patient will demonstrate increase in R hip flexion, extension, abduction, IR, and ER strength to 4/5 during manual muscle testing in order to improve function for prior functional tasks. Perform transitional sit <> stand with decreased report of symptoms/pain and with independence in 13 weeks. -- PROGRESSING Normal gait. -- PROGRESSING Reciprocal stair negotiation. -- MET, but with stiffness Patient will increase balance to 20 seconds for single limb stance on RLE and 20 seconds for single limb stance on LLE. -- MET Patient will demonstrate improved neuromuscular coordination as evidenced by improve function for prior functional tasks. -- PROGRESSING Patient Goals: restore functional ROM and strength of the RLE hip -- PROGRESSING Patient Goals: restore functional ROM and strength of the RLE hip Planned Interventions, Frequency, and Duration: 2x/week, 12 weeks Total Number of Visits Planned: 24 Patient to be seen for Therapeutic exercise (15224), Neuromuscular re-education (38648), Manual therapy (32494), Therapeutic activities (32671), Self-prison management (46451), Gait Training (03473) PLAN FOR NEXT VISIT: add SLS balance and BLS on uneven surface SUBJECTIVE: post op 3 weeks. Pt. admits that she feels that she is over doing it. She states that she often forgets that she is only 3 weeks post op on the left side.. Patient Goals: restore functional ROM and strength of the RLE hip Functional Limitations: physical activities, kneeling, running, jumping, squatting, working, carrying, lifting Pain: Pain Pain Level: 0 Pain Location: Hip - Left Additional Pain Information : Location 2 Pain Level 2: 0 Pain Location 2: Hip - Right Post Treatment Pain Post Treatment Pain Level: 0 Post Treatment Pain Location: Hip - Left, Hip - Right PROMIS Scales 01/07/2024 12/30/2023 12/05/2023 Higher is Better Phys Func - Score 33 (moderate dysfunction) Phys Func - Percentile 4 Self-Eff Symptom - Score 50 (Average) 42 (Average) Self-Eff Symptom - Percentile 50 21 T-scores: mean of general population = 50. 5 points is clinically meaningfully difference Percentiles provide an indication of how the patient's score ranks in relation to the general population. Higher percentile rankings indicate better function/quality of life. 50th percentile is the average of the general population and indicates half of respondents had a worse score. OBJECTIVE MEASURES WITH LEVEL OF FUNCTION: LE AROM R Hip Flexion: 127 Degrees L Hip Flexion: 127 Degrees TREATMENT: Therapeutic Exercise: 1: seated on upright [employer] bike seat 7, level 2, subjective collected 1:1 throughout 2: *Access Code: [email or web address] URL: [email or web address] Date: 01/08/2024 Prepared by: Jaja Jean Exercises - Supine Bridge - 1-2 x daily - 7 x weekly - 3-4 sets - 10 reps - 3 hold - Quadruped Rocking Slow - 1-2 x daily - 7 x weekly - 3 sets - 10 reps - 1 hold - Prone Hip Extension - 1-2 x daily - 7 x weekly - 4 sets - 10 reps - 1 hold - Clamshell - 1-2 x daily - 7 x weekly - 4 sets - 15 reps - 1 hold - Standing Heel Raises - 1-2 x daily - 7 x weekly - 3 sets - 10 reps - Mini Squat - 1-2 x daily - 7 x weekly - 3 sets - 10 reps - Prone Heel Squeeze - 1-2 x daily - 7 x weekly - 5 sets - 1 reps - 10 hold - Prone Hip Internal Rotation AROM - 1-2 x daily - 7 x weekly - 5 sets - 1 reps - 10 hold - Supine Single Knee to Chest Stretch - 1-2 x daily - 7 x weekly - 3 sets - 1 reps - 30 hold - Standing Hip Internal Rotation AAROM on Stool - 1-2 x daily - 7 x weekly - 3 sets - 10 reps Skilled Intervention: Patient was educated in proper [...] and function . Patient education as noted. Neuromuscular Re-Education: 1: SLS >30 sec each side - denies pain Skilled Intervention: Skilled judgment used to assess appropriate program for balance and coordination activity. Education in proprioceptive/kinesthetic awareness during dynamic activities. Patient education as noted. Gait Training: Distance (feet): 50 Gait Cues: no cues needed Assistive Device: none Assist Level: independent Weight Bearing Status: full Skilled Intervention: Patient was provided independence during pre-gait/gait training to prevent falls and insure safety. Self-Intermediate Management: 1: reviewed post-op wk 3 precautions for LLE Skilled Intervention: Skilled judgment in the selection of proper modification for activity of daily living/home management based on clinical presentation, deficits, and needs. Provided written instruction for activities of daily living techniques to facilitate proper performance and compliance. Reviewed patient specific diagnosis in relation to activities of daily living/home management. Activity progression based on professional judgement. Provided written instruction for home program to facilitate proper performance and compliance. Correct performance of home program was facilitated with verbal, visual, and tactile cueing. Billing Therapeutic Exercise Treatment Minutes: 32 Neuromuscular Re-Education Treatment Minutes: 2 Self-Care/Home Management Treatment Minutes: 5 Gait Training Treatment Minutes: 1 Skilled Treatment Time Minutes (timed and untimed codes): 40 Total Session Time (minutes): 40 Session Start Time : 1616 Session Stop Time : 1655 Jaja Leonard PT documented in this encounter [facility] 01-01-2024 History of Present illness Narrative Program_ID:[id number] Access Code: [email or web address] URL: [email or web address] Date: 01-01-2024 Prepared By: Jaja Leonard Program Notes Exercises - Supine March - 1 x daily - 7 x weekly - 4 sets - reps - Supine Bridge - 1 x daily - 7 x weekly - 3-4 sets - 15 reps - Quadruped Rocking Slow - 1 x daily - 7 x weekly - 3 sets - 10 reps - Supine Heel Slide with Strap - 1 x daily - 7 x weekly - 4 sets - 10 reps - Prone Hip Extension - 1 x daily - 7 x weekly - 4 sets - 15 reps - Clamshell - 1 x daily - 7 x weekly - 4 sets - 15 reps Episode Visit Count: 10 Therapist That Will Accept/Oversee The Plan Of Care: Jaja Leonard Start of Care Date: 11/02/23 Onset Date: 11/01/23 Plan of Care Certification Date: 11/02/23 Next Certification Due Date: 01/11/24 REHABILITATION AND SPORTS THERAPY PHYSICAL THERAPY TREATMENT NOTE ASSESSMENT: Besise Solomon tolerated the session with decreased symptoms. She demonstrated difficulty with L hip clamshells and prone hip extension as compared to the RLE. The patient will continue to benefit from ongoing skilled physical therapy to progress toward set goals. PLAN FOR NEXT VISIT: add calf raises, mini squat, IR/ER isometrics, stool IR to neutral to HEP SUBJECTIVE: Post op 2 weeks. 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 Patient Goals: restore functional ROM and strength of the RLE hip Pain: Pain Pain Level: 0 Pain Location: Hip - Left Additional Pain Information : Location 2 Pain Level 2: 0 Pain Location 2: Hip - Right Post Treatment Pain Post Treatment Pain Level: 0 Post Treatment Pain Location: Hip - Left, Hip - Right OBJECTIVE MEASURES WITH LEVEL OF FUNCTION: TREATMENT: Therapeutic Exercise: 1: supine physioball 65 cm PROM hip fleixon to 90 degrees 2x20 2: *Access Code: [email or web address] URL: [email or web address] Date: 01/01/2024 Prepared by: aJja Jean Exercises - Supine March - 1 x daily - 7 x weekly - 4 sets - 45 hold - Supine Bridge - 1 x daily - 7 x weekly - 3-4 sets - 15 reps - 1 hold - Quadruped Rocking Slow - 1 x daily - 7 x weekly - 3 sets - 10 reps - 1 hold - Supine Heel Slide with Strap - 1 x daily - 7 x weekly - 4 sets - 10 reps - 5 hold - Prone Hip Extension - 1 x daily - 7 x weekly - 4 sets - 15 reps - 1 hold - Clamshell - 1 x daily - 7 x weekly - 4 sets - 15 reps - 1 hold 3: Prone hip IR and ER isometric 10 sec isometric 5 sets each direction, each hip Skilled Intervention: Patient was educated in proper exercise technique and purpose for exercises. Reviewed and educated patient on additions/changes for home exercise program as above (*). Skilled judgment was used in selection of appropriate interventions. Provided written instruction for home exercise program to facilitate proper performance and compliance. Correct performance of therapeutic exercises was facilitated with verbal, visual, and tactile cuing. Educated patient on rationale for performing exercises in regards to decreasing fatigue , including balance, increase ease of ADL, and ROM and function . Patient education as noted. Billing Therapeutic Exercise Treatment Minutes: 40 Skilled Treatment Time Minutes (timed and untimed codes): 40 Total Session Time (minutes): 40 Session Start Time : 1750 Session Stop Time : 1830 Jaja Leonard PT documented in this encounter [facility] 12-25-2023 History of Present illness Narrative Episode Visit Count: 9 Therapist That Will Accept/Oversee The Plan Of Care: Jaja Leonard Start of Care Date: 11/02/23 Onset Date: 11/01/23 Plan of Care Certification Date: 11/02/23 Next Certification Due Date: 01/11/24 REHABILITATION AND SPORTS THERAPY PHYSICAL THERAPY TREATMENT NOTE ASSESSMENT: Bessie Solomon tolerated the session with decreased symptoms. She demonstrated improvements in tolerance with PROM L hip flexion. The patient will continue to benefit from ongoing skilled physical therapy to progress toward set goals. PLAN FOR NEXT VISIT: SUBJECTIVE: Pt. wants to reduce visits to 1x/wk. Pt. would like to return to work the first week of January. Pain: Pain Pain Level: 0 Pain Location: Hip - Left Additional Pain Information : Location 2 Pain Level 2: 0 Pain Location 2: Hip - Right OBJECTIVE MEASURES WITH LEVEL OF FUNCTION: TREATMENT: Manual Therapy: 1: PROM circumduction 3x20 L 2: PROM L hip flexion to <90 as tolerated 3x20 3: PROM IR suipine 3x30 4: PROM ER at 70 degrees of flexion 3x20 Skilled Intervention: Manual skills to improve joint mobility, ROM, and decrease pain. Utilized anatomy knowledge of the therapist, and assessment of patient's response to intervention. Billing Therapeutic Exercise Treatment Minutes: 25 Skilled Treatment Time Minutes (timed and untimed codes): 25 Total Session Time (minutes): 25 Session Start Time : 1705 Session Stop Time : 1730 Jaja Leonard PT documented in this encounter [facility] 12-25-2023 Instructions Debbie Mustafa PA-C - 12/25/2023 9:33 AM EDT Wound Care You can get your incisions wet in the shower, by allowing the water to run over them. Avoid scrubbing incisions. Do not soak or submerge your leg in a hot tub, bath tub or pool until you are at least 3 weeks post op and incisions well healed. Do not apply lotions or ointments to your incisions until you are 3 weeks post op and incisions are well healed. Medications: Finish Naproxen prescription. Then NSAID as needed for pain Pain medication - Over the Counter Tylenol (Acetaminophen) - Max 3000 mg per day MOTION RESTRICTIONS END TIMES: HIP FLEXION (bending hip) less than 90 degrees until 2 weeks after surgery OK to sit on toilet and put shoes on as tolerated - you may have to slouch or lean back Hyperextension 0 degrees (none) - Place a blanket or pillow under your thigh/ knees when lying flat until 2 weeks after surgery External Rotation with leg extended (straight) 0 degrees ) none) - Do not turn your foot out with your leg straight until 6 weeks after surgery ABduction (bringing your hip away from your body) NOT past shoulder width until 3 weeks after surgery ADduction / do not bring your leg past midline/ belly button (no crossing your legs) until [address] a pillow or 2 between your knees if laying on your side Extremes of motion and quick movements will continue to be uncomfortable It is normal to experience clicks, pops, cracks to varying degrees - as the scar tissue is maturing and you are gaining muscle strength and endurance Activities: Stop wearing the brace 12/26 - ok to be out of brace at home and sleep out of brace Ok to sleep in any comfortable position - either side recommend pillow between your knees It is normal to have morning stiffness and soreness at the end of the day. Monitor soreness if increasing daily - sign you are overdoing it. Physical therapy - not more than twice a week Continue to lay on your stomach for 1 to 2 hours per day to stretch the front of your hip. May do this in 5-10 minute increments. Avoid walking for exercise Upright stationary bike for motion only over the next 3-4 weeks - do not have feet attached to pedals (no strap or clipping in) - can work up to 20 minutes twice a day Pool at 4 weeks post op IF incisions are completely healed: avoid breast stroke, treading water, scissor kick/ motion. Ok to begin gentle freestyle and deep water jog at 5-6 weeks post op Lifting: Nothing greater than a gallon of milk until next office visit Weight Bearing: Progressive starting 12/27/23 - use 2 crutches for minimum 2-3 days working up to 50 % weight bearing then if able to comfortably bear more than 50% weight transition to 1 crutch or cane for at least 3 days - full weight bearing as tolerated day 3. Then cane/ crutch as needed. Avoid limping Driving: Once you have good leg control and are able to safely and confidently move from gas to break and slam on brake if necessary to protect yourself and others. Follow-up: 4 weeks documented in this encounter [facility] 12-25-2023 History of Present illness Narrative The Left hip (site) was assessed and sutures were removed as ordered. No dressing required. Patient instructed on wound care and verbalized understanding. Post Op Follow Up Visit Bessie Solomon returns 12 days s/p 1. left hip arthroscopy. 2. Acetabuloplasty CPT 76891 3. Labral repair. CPT 27723 4. Femoroplasty. CPT 59348 5. Capsular Closure DOS: 12/13/23 Reports she has been doing well postop with both hips. 2 months s/p right hip scope She denies aggravation or increased right hip symptoms following left hip scope. PAIN EVALUATION No data found in the last 1 encounters. Post op medication usage: Naproxen consistent use , tolerating Brace intact Weight bearing:touchdown with 2 crutches Physical therapy once a week - increasing to twice a week Review of Symptoms: General: no fevers, chills, nausea/vomiting, malaise CV: No chest pain, no calf pain or redness Pulm: No shortness of breath GI: No nausea, vomiting or constipation HEENT: No head ache Physical Examination: This is a well appearing, well nourished patient in no acute distress. Breathes easily and has normal chest wall excursion. Affect is normal. Left hip: Sutures removed without incident. Incisions healing well with no erythema, drainage, induration. There are no signs of infection. Wounds re-enforced with steri strips. Intact sensation in the distribution of the lateral femoral cutaneous nerve No discomfort with IR log roll Hip flexion to 90 degrees without pain - end range tightness External rotation at 90 to 50 degrees without pain Calves soft, non tender, no palpable cords 5/5 strength with resisted DF/EHL/PF bilaterally Impression: Approximately 2 weeks s/p left hip scope. No evidence of infection or DVT 2 months s/p left hip arthroscopy Plan: Discussed Intra operative and post operative course and expectations discussed. Arthroscopy pictures reviewed. Wound Care You can get your incisions wet in the shower, by allowing the water to run over them. Avoid scrubbing incisions. Do not soak or submerge your leg in a hot tub, bath tub or pool until you are at least 3 weeks post op and incisions well healed. Do not apply lotions or ointments to your incisions until you are 3 weeks post op and incisions are well healed. Medications: Finish Naproxen prescription. Then NSAID as needed for pain Pain medication - Over the Counter Tylenol (Acetaminophen) - Max 3000 mg per day MOTION RESTRICTIONS END TIMES: HIP FLEXION (bending hip) less than 90 degrees until 2 weeks after surgery OK to sit on toilet and put shoes on as tolerated - you may have to slouch or lean back Hyperextension 0 degrees (none) - Place a blanket or pillow under your thigh/ knees when lying flat until 2 weeks after surgery External Rotation with leg extended (straight) 0 degrees ) none) - Do not turn your foot out with your leg straight until 6 weeks after surgery ABduction (bringing your hip away from your body) NOT past shoulder width until 3 weeks after surgery ADduction / do not bring your leg past midline/ belly button (no crossing your legs) until [address] a pillow or 2 between your knees if laying on your side Extremes of motion and quick movements will continue to be uncomfortable It is normal to experience clicks, pops, cracks to varying degrees - as the scar tissue is maturing and you are gaining muscle strength and endurance Activities: Stop wearing the brace 12/26 - ok to be out of brace at home and sleep out of brace Ok to sleep in any comfortable position - either side recommend pillow between your knees It is normal to have morning stiffness and soreness at the end of the day. Monitor soreness if increasing daily - sign you are overdoing it. Physical therapy - not more than twice a week Continue to lay on your stomach for 1 to 2 hours per day to stretch the front of your hip. May do this in 5-10 minute increments. Avoid walking for exercise Upright stationary bike for motion only over the next 3-4 weeks - do not have feet attached to pedals (no strap or clipping in) - can work up to 20 minutes twice a day Pool at 4 weeks post op IF incisions are completely healed: avoid breast stroke, treading water, scissor kick/ motion. Ok to begin gentle freestyle and deep water jog at 5-6 weeks post op Lifting: Nothing greater than a gallon of milk until next office visit Weight Bearing: Progressive starting 12/27/23 - use 2 crutches for minimum 2-3 days working up to 50 % weight bearing then if able to comfortably bear more than 50% weight transition to 1 crutch or cane for at least 3 days - full weight bearing as tolerated day 3. Then cane/ crutch as needed. Avoid limping Driving: Once you have good leg control and are able to safely and confidently move from gas to break and slam on brake if necessary to protect yourself and others. Follow-up: 4 weeks Debbie Mustafa MS, PA-C documented in this encounter [facility] 12-18-2023 History of Present illness Narrative Program_ID:[id number] Access Code: [email or web address] URL: [email or web address] Date: 12-18-2023 Prepared By: Jaja Leonard Program Notes Exercises - Standing Quad Set - 2 x daily - 7 x weekly - 2 sets - 10 reps - Standing Gluteal Sets - 2 x daily - 7 x weekly - 2 sets - 10 reps - Supine Transversus Abdominis Bracing - Hands on Stomach - 2 x daily - 7 x weekly - 5 sets - 10 reps - Prone Knee Flexion - 2 x daily - 7 x weekly - 3 sets - 12 reps - Supine Hip Adduction Isometric with Ball - 1 x daily - 7 x weekly - 3-4 sets - 12 reps Episode Visit Count: 8 Therapist That Will Accept/Oversee The Plan Of Care: Jaja Leonard Start of Care Date: 11/02/23 Onset Date: 11/01/23 Plan of Care Certification Date: 11/02/23 Next Certification Due Date: 01/11/24 REHABILITATION AND SPORTS THERAPY PHYSICAL THERAPY TREATMENT NOTE ASSESSMENT: Bessie Solomon tolerated the session with decreased symptoms. She demonstrated improvements in posture while using B crutches. The patient will continue to benefit from ongoing skilled physical therapy to progress toward set goals. PLAN FOR NEXT VISIT: continue per protocol SUBJECTIVE: Pt. reports that she is trying to not over do it. Pain: Pain Pain Level: 0 Pain Location: Hip - Left Additional Pain Information : Location 2 Pain Level 2: 0 Pain Location 2: Hip - Right Post Treatment Pain Post Treatment Pain Level: Better Post Treatment Pain Location: Hip - Left, Hip - Right OBJECTIVE MEASURES WITH LEVEL OF FUNCTION: TREATMENT: Therapeutic Exercise: 1: seated B ankle pumps 1x20 2: *Access Code: [email or web address] URL: [email or web address] Date: 12/18/2023 Prepared by: Jaja Jean Exercises - Standing Quad Set - 2 x daily - 7 x weekly - 2 sets - 10 reps - 5 hold - Standing Gluteal Sets - 2 x daily - 7 x weekly - 2 sets - 10 reps - 5 hold - Supine Transversus Abdominis Bracing - Hands on Stomach - 2 x daily - 7 x weekly - 5 sets - 10 reps - 5-10 hold - Prone Knee Flexion - 2 x daily - 7 x weekly - 3 sets - 12 reps - 1 hold - Supine Hip Adduction Isometric with Ball - 1 x daily - 7 x weekly - 3-4 sets - 12 reps - 5 hold Skilled Intervention: Patient was educated in proper exercise technique and purpose for exercises. Reviewed and educated patient on additions/changes for home exercise program as above (*). Skilled judgment was used in selection of appropriate interventions. Provided written instruction for home exercise program to facilitate proper performance and compliance. Correct performance of therapeutic exercises was facilitated with verbal, visual, and tactile cuing. Educated patient on rationale for performing exercises in regards to decreasing fatigue , increase ease of ADL, and ROM and function . Patient education as noted. Billing Therapeutic Exercise Treatment Minutes: 38 Skilled Treatment Time Minutes (timed and untimed codes): 38 Total Session Time (minutes): 38 Session Start Time : 1740 Session Stop Time : 1818 Jaja Leonard PT documented in this encounter [facility] 12-14-2023 History of Present illness Narrative Images from the original note were not included. Episode Visit Count: 7 Therapist That Will Accept/Oversee The Plan Of Care: Jajacata Leonard Start of Care Date: 11/02/23 Onset Date: 11/01/23 Plan of Care Certification Date: 11/02/23 Next Certification Due Date: 01/11/24 REHABILITATION AND SPORTS THERAPY PHYSICAL THERAPY RE-EVALUATION PLAN OF CARE UPDATE: Assessment: Bessie Solomon demonstrates difficulty with sitting, rising from a chair, standing, walking, walking in the house, walking in the community, stair negotiation, bending, lifting, physical activities, recreational activities, kneeling, running, jumping, squatting, working, sleeping, driving, cleaning, cooking, dressing, grooming, and weight bearing. She has progressed toward goals. Patient continues to present with impairments in ADL's, balance, flexibility, gait, independence in exercise, joint mobility, overall function, patient reported outcome measures, posture, range of motion, sensation, strength, symptom management, and tissue tenderness that interfere with stair negotiation, walking in the community, rising from a chair, sitting, physical activities, kneeling, running, jumping, squatting, working, sleeping, driving, dressing, cooking, cleaning, carrying, lifting . Current prognosis is Good due to: current objective clinical presentation, good overall health status, acuteness of condition, positive past response to therapy, within-session changes, good support system/ coping skills . She will benefit from continued skilled therapy services to meet the updated goals for this plan of care as noted below. Goals for Episode of Care: created on through 02/22/24 Goals updated on 12/07/2023 through 02/10/24 Goals updated on 12/14/2023 through 01/11/24 [place] in home exercise program. -- MET Patient will decrease pain rating by 2 points to meet minimal clinical important difference for numeric pain rating scale. --R and L side -- PROGRESSING Patient will increase active ROM of R hip to 120 flexion to allow pt to to improve postural alignment. -- PROGRESSING Patient will demonstrate increase in R hip flexion, extension, abduction, IR, and ER strength to 4/5 during manual muscle testing in order to improve function for prior functional tasks. Perform transitional sit <> stand with decreased report of symptoms/pain and with independence in 13 weeks. -- PROGRESSING Normal gait. -- PROGRESSING Reciprocal stair negotiation. -- PROGRESSING Patient will increase balance to 20 seconds for single limb stance on RLE and 20 seconds for single limb stance on LLE. -- PROGRESSING Patient will demonstrate improved neuromuscular coordination as evidenced by improve function for prior functional tasks. -- PROGRESSING Patient Goals: restore functional ROM and strength of the RLE hip -- PROGRESSING Patient Goals: restore functional ROM and strength of the RLE hip Planned Interventions, Frequency, and Duration: 2x/week, (15 weeks) Total Number of Visits Planned: 30 Patient to be seen for Therapeutic exercise (98920), Neuromuscular re-education (36546), Manual therapy (82906), Therapeutic activities (40681), Self-prison management (06002), Gait Training (56709) PLAN FOR NEXT VISIT: phase I for L hip, phase II R SUBJECTIVE: S/p L hip arthroscopy and labral repair yesterday. Pt. unable to tolerate pain medications due to the fuzzy feeling. Tylenol and muscle relaxer taken before visit.. Patient Goals: restore functional ROM and strength of the RLE hip Functional Limitations: stair negotiation, walking in the community, rising from a chair, sitting, physical activities, kneeling, running, jumping, squatting, working, sleeping, driving, dressing, cooking, cleaning, carrying, lifting Pain: Pain Pain Level: 3 Pain Location: Hip - Left Description: Aching Pain Level 2: 2 Pain Location 2: Hip - Right Detailed Pain Score: Yes Post Treatment Pain Post Treatment Pain Level: No Change Post Treatment Pain Location: Hip - Left, Hip - Right PROMIS Scales 12/05/2023 12/03/2023 11/08/2023 Higher is Better Phys Func - Score 33 (moderate dysfunction) 24 (severe dysfunction) Phys Func - Percentile 4 0 Self-Eff Symptom - Score 42 (Average) 43 (Average) Self-Eff Symptom - Percentile 21 24 T-scores: mean of general population = 50. 5 points is clinically meaningfully difference Percentiles provide an indication of how the patient's score ranks in relation to the general population. Higher percentile rankings indicate better function/quality of life. 50th percentile is the average of the general population and indicates half of respondents had a worse score. OBJECTIVE MEASURES WITH LEVEL OF FUNCTION: Sensation - Lower Extremity LE Light Touch Sensation: Grossly Intact LE PROM L Hip Flexion: 70 Degrees Gait Gait Distance (feet): 50 Gait Device: Crutches Gait Deviations: Left Lower Extremity Gait Deviations Left Lower Extremity: Push off during terminal stance decreased, Lacks hip extension beyond mid-stance, Lacks full knee extension during terminal swing, Knee stability during stance phase decreased, Knee flexion during stance increased, Circumduction, Heel strike during initial stance decreased, Foot clearance decreased, Weight bearing decreased Gait Observation: requires cues to avoid trunk leaning forwared TREATMENT: Re-evaluation: Performed due to the following change of patient status: Same surgery, same referring surgeon, contralateral LE Therapeutic Exercise: 1: *prone lay 5-2- min 7-8x/day Skilled Intervention: Patient was educated in proper exercise technique and purpose for exercises. Reviewed and educated patient on additions/changes for home exercise program as above (*). Skilled judgment was used in selection of appropriate interventions. Provided written instruction for home exercise program to facilitate proper performance and compliance. Correct performance of therapeutic exercises was facilitated with verbal, visual, and tactile cuing. Educated patient on rationale for performing exercises in regards to decreasing fatigue , including balance, increase ease of ADL, and ROM and function . Patient education as noted. Manual Therapy: 1: *hip circumduction 45 to 70 degrees of R hip flexion 1-2 sets 20 reps 2-3 times a day 2: *supine hip roll IR 1-2 sets 20 reps 2-3 times daily 3: *supine PROM flexion to 90 degrees 1-2 sets of 20 reps, 2-3 times day 4: *supine PROM ER in flexion (>70 dgrees of flexion) 2-3 sets, 2-3 x/day 20 reps 5: *prone hip IR with knee flexed 90, 2-3 sets 20, 2-3x/day Skilled Intervention: Manual skills to improve joint mobility, ROM, and decrease pain. Utilized anatomy knowledge of the therapist, and assessment of patient's response to intervention. Self-Intermediate Management: 1: reviewed protocol 2: discussed continued HEP For R hip- with the exception of dc HEP exercises that require pt. to break protocol of LLE hip 3: new print out of phase I exercises given Skilled Intervention: Skilled judgment in the selection of proper modification for activity of daily living/home management based on clinical presentation, deficits, and needs. Provided written instruction for activities of daily living techniques to facilitate proper performance and compliance. Reviewed patient specific diagnosis in relation to activities of daily living/home management. Activity progression based on professional judgement. Reviewed and educated patient on additions/changes for home program as noted above with an (*). Provided written instruction for home program to facilitate proper performance and compliance. Correct performance of home program was facilitated with verbal, visual, and tactile cueing. Billing * Re-Evaluation Complexity: 1 Unit Therapeutic Exercise Treatment Minutes: 5 Manual TherapyTreatment Minutes: 15 Self-Care/Home Management Treatment Minutes: 10 Skilled Treatment Time Minutes (timed and untimed codes): 45 Total Session Time (minutes): 45 Session Start Time : 951 Session Stop Time : 1037 Jaja Leonard PT documented in this encounter [facility] 12-13-2023 Note HNO ID: [id number] Author: HUNTER PERKINS APRN.CERTIFIED CREDIT COUNSELOR Service: Anesthesiology Author Type: Nurse Sawdust Drier Type: Anesthesia Procedure Notes Filed: 12/13/2023 11:07 Note Text: ANESTHESIOLOGY PROCEDURE NOTE Airway General Information Procedure Start Time/Medication Administration: 12/13/2023 10:49 AM Patient location during procedure: OR Timeout Performed Pre-procedure: timeout performed Consent Obtained: Yes Patient identity confirmed: arm band and patient Staffing CERTIFIED CREDIT COUNSELOR: Hunter Perkins APRN.CERTIFIED CREDIT COUNSELOR Performed by: CERTIFIED CREDIT COUNSELOR Indications and Patient Condition Indications for airway management: anesthesia Preoxygenated: yes Method: asleep Final Airway Details Final airway type: endotracheal airway Final Endotracheal Airway: ETT Successful intubation technique: direct laryngoscopy Devices used: intubating stylet Blade: Kyree Blade size: #3 ETT size (mm): 7.0 Measured from: lips Measurement (cm): 21 Placement verified by: chest auscultation and capnometry Cormack-Lehane Classification: grade IIa - partial view of glottis Number of attempts at approach: 1 Airway not difficult SIGNATURE: Hunter Perkins APRN.CERTIFIED CREDIT COUNSELOR PATIENT NAME: Bessie Solomon DATE: December 13, 2023 TIME: 11:06 AM CSN: [id number] [facility] 12-12-2023 Miscellaneous Notes Spoke with patient on the phone regarding their upcoming surgery on 12-13-[address] Partida - Procedure - Left hip arthroscopy Advised patient I was reaching out to them to see if they had any questions leading up to surgery. -PACC completed on 12-04-23 -Hip brace - patient confirmed that she has hip brace and will bring this with her on DOS. -Crutches - patient confirmed she has crutches and will bring them with her on DOS. -Post op PT - set up for 12-14-23 - [facility] -[facility] appt with [facility] 12-25-23 -Xray - no additional views necessary -Preferred pharmacy - [facility]- [id number] [place] [address] - [address] [facility] - [phone] Advised patient that they will receive a phone call this afternoon to let them know what time to arrive on the day of surgery. All questions answered. Patient is prepared for surgery pending - none Ric Velasco, AT, ATC documented in this encounter [facility] 12-10-2023 History of Present illness Narrative I have personally reviewed Vlad Allen ATC note. I agree with the findings as documented. Procedure: Left hip scope DOS: 12/13/23 Right 11/01/23 3 FT, small T, 3 UB Consent initiated. Insurance: Payor: [employer] / Plan: [employer] PPO / Product Type: PPO / BMI: 27.79 Images reviewed. XR 10/26/23 EPIC no additional views necessary MRI EPIC labral tear Orders reviewed and signed. Chart routed to surgery schedulers Debbie Mustafa PA-C December 10, 2023 12:46 PM Spoke with patient regarding scheduling surgery for their left hip with Dr. Partida. Procedure: Left hip arthroscopy - Labral repair, Arthroscopic cam impingement femoroplasty, and Arthroscopic pincer impingement acetabuloplasty. Date: 12-13-23 BMI: 27.62 Preferred pharmacy: [facility]- [id number] [place] [address] - [address] [facility] - [phone] Insurance: [facility] XR: 10-26-23 MRI: 09-04-23 - labral tear of left hip Brace fitting: N/A - will bring hip brace with her on DOS Crutches/ Walker: Need Training: No Need Crutches: No PACC: [facility] Medications: aspirin, enteric coated (ADULT LOW DOSE ASPIRIN) 81 mg EC tablet Take 1 tablet by mouth daily with breakfast for 21 days. docusate sodium (COLACE) 100 mg capsule Take 1 capsule by mouth two times a day. methocarbamol (ROBAXIN) 500 mg tablet Take 1-2 tablets by mouth three times a day as needed (for muscle spasms or pain). ondansetron orally disintegrating (ZOFRAN ODT) 4 mg disintegrating tablet Take 1 tablet by mouth every 8 hours as needed for nausea/vomiting. TEZSPIRE 210 mg/1.91 mL (110 mg/mL) pnij INJECT 210MG SUBCUTANEOUSLY EVERY 4 WEEKS PREDNISONE ORAL Take by mouth as needed. Burst ondansetron orally disintegrating (ZOFRAN ODT) 4 mg disintegrating tablet Take 1 tablet by mouth every 8 hours as needed for nausea/vomiting. fluticasone-salmeterol HFA (ADVAIR HFA) 230-21 mcg/actuation inhaler Inhale 2 Puffs as instructed two times a day. azelastine 0.1% nasal spray Use 2 Sprays in each nostril twice daily as needed. fluticasone (FLONASE) 50 mcg/actuation nasal spray Use 2 Sprays in each nostril once daily. montelukast (SINGULAIR) 10 mg tablet Take 1 tablet by mouth daily at bedtime. tiotropium bromide (SPIRIVA RESPIMAT) 1.25 mcg/actuation mist INHALE 2 PUFFS BY MOUTH INSTRUCTED ONCE DAILY. albuterol (PROVENTIL) 2.5 mg /3 mL (0.083 [...] mg cap Take by mouth as needed. Allergies: ALLERGIES Allergen Reactions Clindamycin Rash, GI Upset Septra [Sulfamethox* Rash, GI Upset Current medical concerns: Any history of the following: Are you unable to take NSAID's: No. Breathing problems: asthma, sleep apnea or other lung issues: Asthma. Decreased kidney function or other kidney disease: No. Liver disease: No. Heart issues - prior heart attack, stents/surgery, valve issues, implanted cardiac device (ICD, defibrillator, pacemaker): No. Diabetic: No. Do you take insulin or other injections for diabetes Currently on any antibiotics - No. Blood thinning medications (coumadin, Xarelto, Plavix, Eliquis etc) other than aspirin : No. History of blood clot, DVT or PE (lungs, legs, arms) if yes when and where : No. Blood clotting disorder or FACTOR deficiency: No. Thyroid medication: No. Skin infection (staph, MRSA): No. History of stroke/ seizure or unexplained loss of consciousness: No. Neurological conditions like Parkinson's or Multiple Sclerosis (MS): No. Pain Management, have a opioid contract or currently taking prescription pain medication: No. Implanted devices ( pain pump, deep brain stimulator or spinal cord stimulator): No. Family history of life threatening reaction to anesthesia (NOT nausea or slow wake up): No. Pre op instructions sent via [employer]. AUSTIN Yung documented in this encounter [facility] 12-07-2023 History of Present illness Narrative Program_ID:[id number] Access Code: [email or web address] URL: [email or web address] Date: 12-07-2023 Prepared By: Jaja Leonard Program Notes Exercises - Supine Single Bent Knee Fallout - 2-3 x daily - 7 x weekly - 4 sets - 15 reps - Sidelying Hip Abduction - 2-3 x daily - 7 x weekly - 3-4 sets - 10 reps - Plank on Knees - 2-3 x daily - 7 x weekly - 3-4 sets - 1 reps - Side Plank on Knees - 2-3 x daily - 7 x weekly - 3-4 sets - 1 reps Images from the original note were not included. Episode Visit Count: 6 Therapist That Will Accept/Oversee The Plan Of Care: Jaja Leonard Start of Care Date: 09/14/23 Onset Date: 11/01/23 Plan of Care Certification Date: 11/02/23 Next Certification Due Date: 01/11/24 REHABILITATION AND SPORTS THERAPY PHYSICAL THERAPY PROGRESS REPORT PLAN OF CARE UPDATE: Assessment: Bessie Solomon demonstrates improvements in sitting, rising from a chair, standing, walking, walking in the house, bending, sleeping, and weight bearing. She has progressed toward goals. Patient continues to present with impairments in ADL's, balance, coordination, flexibility, gait, independence in exercise, joint mobility, overall function, patient reported outcome measures, range of motion, strength, symptom management, and tissue tenderness that interfere with stair negotiation, walking in the community, rising from a chair, sitting, physical activities, kneeling, running, jumping, squatting, working, sleeping, driving, dressing, cooking, cleaning, carrying, lifting . Current prognosis is Good due to: current objective clinical presentation, good overall health status, acuteness of condition, positive past response to therapy, within-session changes, good support system/ coping skills . She will benefit from continued skilled therapy services to meet the updated goals for this plan of care as noted below. Goals for Episode of Care: created on through 02/22/24 Goals updated on 12/07/2023 through 02/10/24 [place] in home exercise program. -- MET Patient will decrease pain rating by 2 points to meet minimal clinical important difference for numeric pain rating scale. -- MET - R side Patient will increase active ROM of R hip to 120 flexion to allow pt to to improve postural alignment. -- PROGRESSING Patient will demonstrate increase in R hip flexion, extension, abduction, IR, and ER strength to 4/5 during manual muscle testing in order to improve function for prior functional tasks. Perform transitional sit <> stand with decreased report of symptoms/pain and with independence in 13 weeks. -- PROGRESSING Normal gait. -- PROGRESSING Reciprocal stair negotiation. -- PROGRESSING Patient will increase balance to 20 seconds for single limb stance on RLE and 20 seconds for single limb stance on LLE. -- PROGRESSING Patient will demonstrate improved neuromuscular coordination as evidenced by improve function for prior functional tasks. -- PROGRESSING Patient Goals: restore functional ROM and strength of the RLE hip -- PROGRESSING Patient Goals: restore functional ROM and strength of the RLE hip Planned Interventions, Frequency, and Duration: 2x/week, 16 weeks Total Number of Visits Planned: 32 Patient to be seen for Self-prison management (74173), Therapeutic activities (12502), Manual therapy (62725), Neuromuscular re-education (56440), Therapeutic exercise (47254), Gait Training (77645) PLAN FOR NEXT VISIT: continue phase II for RLE. add bent over hip extension with knee flexed and side stepping, gastroc, hip flexor, and side lunges to the L to HEP. Dc L side lunges after surgery for L side SUBJECTIVE: Post op wk 5. Pt. to have surgery 12/13/23. Pt. had her f/u visit with ortho.. Patient Goals: restore functional ROM and strength of the RLE hip Functional Limitations: stair negotiation, walking in the community, rising from a chair, sitting, physical activities, kneeling, running, jumping, squatting, working, sleeping, driving, dressing, cooking, cleaning, carrying, lifting Pain: Pain Pain Level: 0 Pain Location: Hip - Right Additional Pain Information : Location 2 Pain Level 2: 0 Pain Location 2: Hip - Left Post Treatment Pain Post Treatment Pain Level: 0 Post Treatment Pain Location: Hip - Right PROMIS Scales 12/05/2023 12/03/2023 11/08/2023 Higher is Better Phys Func - Score 33 (moderate dysfunction) 24 (severe dysfunction) Phys Func - Percentile 4 0 Self-Eff Symptom - Score 42 (Average) 43 (Average) Self-Eff Symptom - Percentile 21 24 T-scores: mean of general population = 50. 5 points is clinically meaningfully difference Percentiles provide an indication of how the patient's score ranks in relation to the general population. Higher percentile rankings indicate better function/quality of life. 50th percentile is the average of the general population and indicates half of respondents had a worse score. OBJECTIVE MEASURES WITH LEVEL OF FUNCTION: LE AROM R Hip Flexion: 113 Degrees L Hip Flexion: 93 Degrees LE PROM R Hip Internal Rotation: 31 Degrees R Hip External Rotation: 40 Degrees L Hip Internal Rotation: 35 Degrees L Hip External Rotation: 25 Degrees TREATMENT: Therapeutic Exercise: 1: upiright bike, level 2, 5 min 1:1 thorughout and subjective collected 2: *Access Code: [email or web address] URL: [email or web address] Date: 12/07/2023 Prepared by: Jaja Jean Exercises - Supine Single Bent Knee Fallout - 2-3 x daily - 7 x weekly - 4 sets - 15 reps - 1 hold - Sidelying Hip Abduction - 2-3 x daily - 7 x weekly - 3-4 sets - 10 reps - 1 hold - Plank on Knees - 2-3 x daily - 7 x weekly - 3-4 sets - 1 reps - 20 hold - Side Plank on Knees - 2-3 x daily - 7 x weekly - 3-4 sets - 1 reps - 20 hold Skilled Intervention: Patient was educated in [...] and function . Patient education as noted. Self-Intermediate Management: 1: reviewed protocol 2: encouraged progressing ROM but to not push through painful range to avoid irriation Skilled Intervention: Skilled judgment in the selection of proper modification for activity of daily living/home management based on clinical presentation, deficits, and needs. Provided written instruction for activities of daily living techniques to facilitate proper performance and compliance. Reviewed patient specific diagnosis in relation to activities of daily living/home management. Activity progression based on professional judgement. Provided written instruction for home program to facilitate proper performance and compliance. Correct performance of home program was facilitated with verbal and visual cueing. Billing Therapeutic Exercise Treatment Minutes: 35 Self-Care/Home Management Treatment Minutes: 5 Skilled Treatment Time Minutes (timed and untimed codes): 40 Total Session Time (minutes): 40 Session Start Time : 1049 Session Stop Time : 1129 Jaja Leonard PT documented in this encounter [facility] 12-07-2023 History of Present illness Narrative POST OP DISTANCE HEALTH VIRTUAL VISIT DOCUMENTATION NOTE I have communicated my name and active licensure. The patient's identity and physical location were verified at the time of this visit. Either the patient or their legal medical representative has been informed of the risks and benefits of -- and alternatives to -- treatment through a remote evaluation and consents to proceed with the evaluation remotely. Distance Health Platform: [employer] Virtual Visit People present : Debbie Mustafa PA-C and Patient Time Spent for video encounter, record review and documentation: 7 minutes CHIEF COMPLAINT (CC): Post op HISTORY OF PRESENT ILLNESS (HPI): 6 weeks s/p right hip arthroscopy No systemic complaints. Pain: denies currently Rare pain with weight bearing with foot externally rotated PT going well - advanced to closed chain exercises EXAMINATION: There is no height or weight on file to calculate BMI. This examination was performed via video enabled technology. Patient does not appear to be in any acute distress Patient is alert and oriented with normal affect Right Hip Examination Inspection: Reports incisions healed Range of motion (patient performed these range of motions with my instruction via the video enabled technology): Hip flexion greater than 90 without difficulty,/IR/ER at 90 degrees without difficulty Palpation (patient localized these landmarks with my instruction via the video enabled technology): No SI joint or greater trochanter tenderness Special testing (patient performed these maneuvers on themselves with my instruction via the video enabled technology): FADIR: Negative FAHAD: Mild loss of motion, tightness Neurologic: Intact sensation testing of the lower extremities with no dysesthesia Impression: 6 weeks s/p right hip arthroscopy Scheduled for left hip arthroscopy 12/13/2023 Plan: Discussed No limitations with walking up until left hip arthroscopy. Precautions reinforced. No impact activities She will bring her brace with her the day of surgery Postop prescriptions will be sent to her pharmacy she does not feel that she needs additional Follow-up: [address] Jaquan Mustafa, MS, PA-C documented in this encounter [facility] 12-04-2023 History and physical note Images from the original note were not included. HISTORY AND PHYSICAL EXAMINATION SERVICE DATE: 12/04/2023 SERVICE TIME: 9:33 AM PRIMARY CARE PHYSICIAN: Diane Bazzi MD Assessment Patient has the following medical conditions which may affect lukas-operative course: Severe persistent asthma without complication Assessment: Follows with , last OV 09/15. Compliant on inhalers. Denies recent exacerbations or hospitalizations. Reports mostly controlled with Tezspire, advair and spiriva daily. Occasional use of albuterol, most with exercise or allergy flares. Irritable bowel syndrome with diarrhea Assessment: Reports recent dx, believes agitated by severe pain and stress. Reports losing 40 lbs since 06/16, but has stabilized. Griffin Activity Status Index: METS: Participate in moderate recreational activites, such as golf, bowling, dancing, doubles tennis, or throwing a baseball or football (6.00 METs) DASI Score: 6 Patient denies any chest pain or undue shortness of breath with the above physical activity. Clinical Frailty Scale: 3. Well, with treated comorbid disease STOP-Bang Score: Snores loudly Denies feeling tired, fatigued, or sleepy during the daytime Has not been observed to stop breathing or choking/gasping during sleep Denies having high blood pressure BMI less than or equal to 35 kg/m^2 Patient 50 years old or younger Does not have a large neck Non-male patient STOP-Bang Score: 1 [id number] Score: Age: <65 Sex: female CHF history: No Stroke/TIA/thromboembolism history: No Vascular disease history: No Diabetes history: No [id number] Score: ARISCAT Score: Age: <=50 Preoperative SpO2: >=96% Respiratory infection in the last month: No Preoperative anemia: Yes Surgical incision: peripheral Duration of surgery: 2-3 hrs Emergency procedure: No ARISCAT Score: 27 ANESTHESIA FINDINGS: Intubation History: No history of difficult intubation. No abnormal airway history Significant Anesthesia Considerations: none Airway History: No history of difficult airway No abnormal airway history 11/17: I - PHYSICAL EVALUATION AIRWAY Patient intubated: No. Tracheostomy tube not present Mallampati: II. TM distance: >3 FB. Neck ROM: full ROM without neurological symptoms. Mouth opening: adequate. Short neck: no. Thick neck: no Lip Bite Test: I DENTAL Additional comments: Invisaline liners with brackets, + crown. II - ANESTHESIA PLAN Anesthetic Plan: other Anesthetic plan additional comments: *PACC/TCI - anesthesia choice. Beta Fransisco Monitoring Plan Post Procedure Analgesic Plan Prepared for Surgery: optimally prepared for surgery. Per PACC guidelines no other testing is required CONSULTS: Patient does not require consults for optimization at this time Planned Anesthetic: other anesthesia choice REASON FOR VISIT: Bessie Solomon is a 38 year old female who is scheduled for Procedure(s) with comments: ARTHROSCOPY HIP W/ LABRAL REPAIR (Left) - Left hip scope labral repair/ debridement, acetabuloplasty, femoroplasty. at the request of Betsey Valdes MD for consultation. My final recommendation will be communicated back to the requesting physician by way of shared medical record or letter. 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 CHIEF COMPLAINT: Pre-anesthesia optimization HPI: Bessie Solomon is a 38 year old female presenting for pre-anesthesia consultation. Pt has history of bilateral hip pain, had right hip arthroscopy last month. Reports R>L hip pain. + labral tear Above procedure recommended to manage symptoms. Procedure scheduled on 12/13/2023 at [facility]. REVIEW OF SYSTEMS: General: Positive for: unintentional weight change. Patient's weight loss: 40 lbs in 6 months Negative for: fever. Neurological: No history of TIA's, stroke, SIDE PULLER tumor, impaired sensorium, hemiplegia, paraplegia or quadraplegia. No neurological symptoms or problems. Respiratory: Positive for: asthma. Negative for: COPD, current cough, dyspnea, tobacco use, URI < 2 weeks and obstructive sleep apnea. Cardiovascular: No history of HTN requiring medication, no history of angina, CHF, SC, cardiac surgery or stents. Denies rest pain, gangrene or revascularization/amputation for PVD. No history of cardiovascular symptoms or problems. Negative for: hypertension (denies dx). GI: Positive for: irritable bowel syndrome (diarrhea) Negative for: inflammatory bowel disease and liver disease. : No history of dysuria, frequency or incontinence, stones or chronic kidney disease. No difficulty urinating, nocturia > 1 time per night or hematuria. RESIDENTIAL DESIGNER: Negative for abnormal vaginal bleeding, abnormal vaginal discharge. Endocrine: No history of diabetes. Has not taken steroids within the past 30 days. No history of endocrinological symptoms or problems. Hematology: No history of bleeding or clotting disorder. Patient is not taking anti-coagulation or platelet medications. No history of hematological symptoms or problems. Oncology: No history of CA metastasis, chemo within 30 days, or radiotherapy within 90 days. No history of oncological symptoms or problems. Psych: No history of psychiatric symptoms or problems. Musculoskeletal: See HPI. Positive for: back pain (occasional lower back pain - 2' hip pain) and joint pain. Skin: Negative for lesions, rash and itching. PAST MEDICAL HISTORY Diagnosis Date Asthma Constipation [...] BR/WA SPX 11/22/2008 Laparoscopy and D&C FAMILY HISTORY Problem Relation Age of Onset other (cerical cancer) Mother Asthma Sister Heart Maternal Grandmother Social History Tobacco Use Smoking status: Never Passive exposure: Never Smokeless tobacco: Never Vaping Use Vaping Use: Never used Substance Use Topics Alcohol use: Not Currently Drug use: No Prior to Admission medications as of 12/04/23 0904 Medication Sig Last Dose Taking ondansetron orally disintegrating (ZOFRAN ODT) 4 mg disintegrating tablet Take 1 tablet by mouth every 8 hours as needed for nausea/vomiting. Taking Yes TEZSPIRE 210 mg/1.91 mL (110 mg/mL) pnij INJECT 210MG SUBCUTANEOUSLY EVERY 4 WEEKS Taking Yes PREDNISONE ORAL Take by mouth as needed. Burst Taking Yes fluticasone-salmeterol HFA (ADVAIR HFA) 230-21 mcg/actuation inhaler Inhale 2 Puffs as instructed two times a day. Taking Yes azelastine 0.1% nasal spray Use 2 Sprays in each nostril twice daily as needed. Taking Yes fluticasone (FLONASE) 50 mcg/actuation nasal spray Use 2 Sprays in each nostril once daily. Taking Yes montelukast (SINGULAIR) 10 mg tablet Take 1 tablet by mouth daily at bedtime. Taking Yes tiotropium bromide (SPIRIVA RESPIMAT) 1.25 mcg/actuation mist INHALE 2 PUFFS BY MOUTH INSTRUCTED ONCE DAILY. Taking Yes albuterol (PROVENTIL) 2.5 mg /3 mL (0.083 %) nebulizer solution Use 3 mL via nebulizer every 4 hours as needed for wheezing/shortness of breath. Taking Yes fexofenadine (GM) 180 mg tablet Take 180 mg by mouth as needed. Taking Yes cetirizine (ZYRTEC) 10 mg tablet Take 10 mg by mouth once daily. Taking Yes albuterol HFA (VENTOLIN HFA) 90 mcg/actuation inhaler Inhale 2 Puffs as instructed every 4 hours as needed for wheezing/shortness of breath (and before sexertion / exercise). Taking Yes acetaminophen 325 mg cap Take by mouth as needed. Taking Yes No medication comments found. ALLERGIES Allergen Reactions Clindamycin Rash, GI Upset Septra [Sulfamethox* Rash, GI Upset Objective PHYSICAL EXAM: General: alert and oriented and healthy appearance. Pertinent negatives noted - not distressed. Skin: normal color, no rash or lesions. HEENT: EOM intact and pupils equal round. Pertinent negatives noted - no carotid bruit. Cardiovascular: regular rate and rhythm, normal S1 and S2, no rub, murmurs, or gallop. Respiratory: normal breath sounds, no wheezes or crackles. No chest wall deformity or tenderness. Abdomen: soft. Pertinent negatives noted - not tender. Extremities: Positive for joint tenderness. Pertinent negatives noted - no deformity, no edema and no joint swelling. Neurological: normal cognition and motor skills. Gait normal. No weakness or sensory deficit. PAIN ASSESSMENT: Pain Pain Level: 3 Pain Location: Hip-Left VITALS: BP 123/77 Pulse 84 Temp (Src) 99.5 (Temporal) Resp 16 Ht 5' 5 (1.65m) Wt 167 lb (75.8kg) SpO2 100% LMP 11/09/2023 BMI 27.79 kg/(m^2). Diagnostic tests reviewed for today's visit: Lab Value Units Date High Low HB 12.2 g/dL 06/16/2023 15.5 11.5 HCT 38.1 % 06/16/2023 46.0 36.0 WBC 4.43 k/uL 06/16/2023 11.00 3.70 PLT 170 k/uL 06/16/2023 400 150 NA 140 mmol/L 06/16/2023 144 136 K 3.9 mmol/L 06/16/2023 5.1 3.7 GLUC 83 mg/dL 06/16/2023 99 74 BUN 11 mg/dL 06/16/2023 21 7 CREAT 0.70 mg/dL 06/16/2023 0.96 0.58 PTSEC No results within date range. INR No results within date range. APTT No results within date range. ALT 20 U/L 06/16/2023 38 7 AST 27 U/L 06/16/2023 35 13 TBILI 0.6 mg/dL 06/16/2023 1.3 0.2 TSH 2.150 mIU/L 06/16/2023 4.200 0.270 Lab Value Units Date High Low HCGQT No results within date range. UHCG No results within date range. HCG, BODY* No results within date range. Lab Value Units Date High Low ABORHD No results within date range. ABSCREEN No results within date range. Hemoglobin A1C (POCT) (%) Date Value 02/19/2019 4.8 No results found for this or any previous visit (from the past 8760 hour(s)). No results found for this or any previous visit (from the past 58698 hour(s)). The Following Tests/Procedures Have Been Initiated: No orders of the defined types were placed in this encounter. Instructions Given to Patient: Instructions located in the after visit summary. Patient given verbal and written preop instructions and voices comprehension and compliance. SIGNATURE: Jim Rashid PA-C PATIENT NAME: Bessie Solomon DATE: 12/04/2023 TIME: 10:24 AM PAGER/CONTACT #: documented in this encounter [facility] 12-04-2023 Instructions Jim Rashid PA-C - 12/04/2023 8:58 AM EDT PATIENT PREOPERATIVE INSTRUCTIONS Dr. Partida has scheduled you for your procedure at this surgery center: [facility]: [phone] --[phone] [phone]. Please read below carefully for your personalized instructions. Arrival Time for Surgery: - The Surgery Center or hospital where you are having surgery will call the afternoon before surgery (or Sunday for Sunday surgery) with a scheduled arrival time. - If you have not heard by 4 pm, please contact the surgery center above. Please be aware that emergency situations arise, which may delay or change your surgical time. If this happens, we will notify you as soon as possible and regret any inconvenience. Dietary Restrictions: - No solid food after midnight. - You may have 12 ounces of clear liquids (water, clear juices such as apple juice or gatorade, carbonated beverages, clear tea, black coffee, jello) until 2 hours before scheduled arrival at facility. - Do not drink any alcohol after midnight the night before your surgery. Medications: Unless instructed differently below, stay on all of your medications until your surgery. Approved medications to take the morning of surgery with a sip of water: inhaler If you start any new medications after today's visit, please contact the surgeon's office. Blood Thinning Medications: - Stop NSAIDS (Ibuprofen, Advil, Aleve, Motrin, Celebrex, Mobic, etc.) 7 days before surgery, as directed by your surgeon. - Stop Aspirin 7 days before surgery, as directed by your surgeon. - Stop Vitamin E, ALL multi-vitamins, herbals and dietary supplements 7 days before surgery. - You may take Tylenol (Acetaminophen) or any of your pain medications that do not contain aspirin or NSAIDS as needed. Important Reminders: - If you use CPAP/BIPAP, bring the machine with you to the surgery center. - If you are prescribed inhalers for breathing, continue using them. - Candy, mints, and tobacco products are NOT permitted the morning of surgery. - Hearing aids, dentures and glasses may be worn the morning of surgery. - NO jewelry, body piercings, makeup, hairpins or contacts are to be worn the day of surgery. If you develop symptoms such as a fever, cold, or flu, or have other changes to your health within TWO DAYS of scheduled surgery or the morning of surgery, please contact the surgery center above. Personal Belongings: -Please have photo ID and insurance cards. -If you do not have a copy of advance directives on file with us, please bring a copy with you on the day of surgery. - Leave ALL valuables and money at home or with family members. For Outpatient Procedures: - YOU MUST HAVE A RESPONSIBLE RAW MATERIAL HANDLER TAKE YOU HOME. A PRINTING EQUIPMENT MECHANIC OR RAW MATERIAL PLANNER CANNOT BE MADE A RESPONSIBLE RAW MATERIAL HANDLER. - We recommend that a responsible person stays with you overnight to take care of you. - You cannot stay in a hotel alone after outpatient surgery. You will not be permitted to have your surgery, if you do not have someone to take care of you. If you already have an Advance Directive, please fax a copy to [phone] or email to for it to be added to your chart. If you do not have an Advance Directive, you can find the appropriate form and more information at [email or web address]. We recommend that you complete the Advance Directive form found on the website and bring it with you the day of your surgery. It can be witnessed and scanned into your chart that day. Jim Rashid PA-C documented in this encounter [facility] 11-30-2023 History of Present illness Narrative Program_ID:[id number] Access Code: [email or web address] URL: [email or web address] Date: 11-30-2023 Prepared By: Jaja Leonard Program Notes Exercises - Supine Transversus Abdominis Bracing - Hands on Stomach - 1 x daily - 7 x weekly - 4 sets - 10 reps - Quadruped Rocking Slow - 1 x daily - 7 x weekly - 4 sets - 20 reps - Supine March - 1 x daily - 7 x weekly - 4 sets - 10 reps - Supine Bridge - 1 x daily - 7 x weekly - 4 sets - 12-15 reps - Clamshell - 1 x daily - 7 x weekly - 4 sets - 12-15 reps - Prone Hip Extension - 1 x daily - 7 x weekly - 4 sets - 8-10 reps - Standing Terminal Knee Extension at Wall with Ball - 1 x daily - 7 x weekly - 4 sets - 20 reps - Mini Squat with Counter Support - 1 x daily - 7 x weekly - 4 sets - 15 reps Episode Visit Count: 5 Therapist That Will Accept/Oversee The Plan Of Care: Jaja Leonard Start of Care Date: 09/14/23 Onset Date: 11/01/23 Plan of Care Certification Date: 11/02/23 Next Certification Due Date: 12/07/23 REHABILITATION AND SPORTS THERAPY PHYSICAL THERAPY TREATMENT NOTE ASSESSMENT: Bessie Solomon tolerated the session with decreased symptoms. She demonstrated improvements in technique with mini squats when given cues for sequence of hip and knee movement. The patient will continue to benefit from ongoing skilled physical therapy to progress toward set goals. PLAN FOR NEXT VISIT: Progress to phase II. Test ROM is >85% of uninvolved side. SUBJECTIVE: Post op wk 4 Pain: Post Treatment Pain Post Treatment Pain Level: 0 Post Treatment Pain Location: Hip - Right OBJECTIVE MEASURES WITH LEVEL OF FUNCTION: TREATMENT: Therapeutic Exercise: 1: upright scifit bike level 2 5 min, subjective colleted 1:1 throughout 2: prone B hip IR 5x10 sec ball between ankles 3: prone B hip ER, PT blocking foot 5x10 sec hold 4: mini squats 4x15 at // bars BUE support (demo and practice hips- knees, knees- hips with verbal cues) 5: kneeling on stool IR to neutral no ER, BUE at raised table 4x20. IR to neutral 6: TKE with ball behind knee 4x20 each side 7: standing mini hip hinge x 20 - mirror for visual feed back (cues for no greater than 15-20 degrees of hip flexion) 8: calf raises 4x15 no UE support required 9: quadruped rocking 4x20 Skilled Intervention: Patient was educated in proper [...] and function . Patient education as noted. Self-Intermediate Management: 1: discussed CRM to a closed and well healing scar 2: discussed how scare tissue is laid down not straight and smooth, CFM can imrpove the mobility of the soft tissue Skilled Intervention: Skilled judgment in the selection of proper modification for activity of daily living/home management based on clinical presentation, deficits, and needs. Provided written instruction for activities of daily living techniques to facilitate proper performance and compliance. Reviewed patient specific diagnosis in relation to activities of daily living/home management. Activity progression based on professional judgement. Provided written instruction for home program to facilitate proper performance and compliance. Correct performance of home program was facilitated with verbal, visual, and tactile cueing. Billing Therapeutic Exercise Treatment Minutes: 39 Self-Care/Home Management Treatment Minutes: 5 Skilled Treatment Time Minutes (timed and untimed codes): 44 Total Session Time (minutes): 44 Session Start Time : 1105 Session Stop Time : 1149 Jaja Leonard PT documented in this encounter [facility] 11-29-2023 Instructions Vlad Allen, AT - 11/29/2023 9:51 AM EST Images from the original note were not included. ORTHOPAEDIC SURGERY - SPORTS MEDICINE MD Debbie Malhotra PA-C Andrew Mindeck, ATC Amanda Wilson, Director Communications [facility], [address] [place] [address] SURGERY INFORMATION You have been scheduled or are considering scheduling OUTPATIENT surgery with Dr. Betsey Partida. Bessie Solomon SURGERY DATE: 12-13-23 PROCEDURE: Left hip arthroscopy PRE OPERATIVE APPOINTMENTS: - Pre-operative testing ([facility]) within 30 days of your surgery - Once surgery is scheduled, [facility] will contact you to set up this appointment. Please call [phone] with any questions. - Hip brace fitting - Please contact Hunter to schedule hip brace [place] at the [facility] [place] [facility] - [email or web address] or [phone] - Crutches - you must obtain a set of crutches ([employer], [employer], or [employer]) - Please bring your crutches with you on the day of surgery. If you show up without crutches, there is a chance your surgery gets cancelled. Video and written instruction on crutch use [email or web address] -[email or web address] POST OPERATIVE APPOINTMENTS: - SCHEDULE PHYSICAL THERAPY APPOINTMENT for the day after surgery - [phone] to schedule - call office if having difficulty securing appointment - Post op follow up appointments surgery: 2 weeks in office with Debbie WILSON; 6 weeks virtual with Debbie WILSON; 12 weeks in person with Dr. Partida. These appointments will be scheduled for you. SURGERY LOCATION: [facility] [place] - 2nd floor [address] [place] [address] ARRIVAL TIME FOR SURGERY - You will be called the afternoon before (Sunday for Sunday) surgery with your arrival time (approx. 2 hours prior to the estimated procedure start time) BRING CRUTCHES or WALKER with you the DAY OF SURGERY - Please alert Dr. Partida's office if you do not have crutches to ensure you are able to obtain a pair prior to surgery. For any financial/insurance questions, please contact our patient oracle financials developer: [phone] POST OP RECOVERY: Hip Brace: to limit motion/ protect the hip - wear for 2 weeks post op - remove to shower and use the bathroom Protected weight bearing: flat foot limited weight bearing - weight of leg supported by the ground with some additional pressure - less than 20% body weight for 2 weeks post op then weaning from crutches post op week 3 Physical Therapy: Outpatient Physical Therapy starting the day after surgery - recommend once weekly until about 6 weeks post op them twice weekly Passive Motion: as part of your recovery it is important to keep you hip joint lubricated and moving - there are 2 options to achieve this - Family/ Friend assisted passive motion - hip flexion and circumduction (rotation) as instructed by physical therapist - 150 reps each exercise 3 x a day - Continuous Passive Motion machine (CPM) - this is typically not covered by insurance. Please contact the office if interested in a CPM Pain Control: combination of prescription medication (pain, NSAID, muscle relaxant) and ice Prescriptions will be electronically sent to your preferred pharmacy the day of surgery. ICE MAN cooling unit - issued day of surgery - does not need to be returned - recommend freezing 4-6 water bottles to use in place of ice in the unit Ice pad should not be in direct contact with your skin. Apply for up to 30 minutes every 2 hours. Use routinely for the 1st 48 hours then as needed for pain and swelling. [employer] Ice machine rental - optional - please let the office know if you would like more information on this. Driving: you must be off narcotic medications, out of brace, off crutches (for right lower extremity) and have good leg control. Return to Work: 1-4 weeks sedentary/ desk work; 12-16 weeks strenuous work DIETARY RESTRICTIONS - Nothing to eat or drink after midnight. (No matter what you are told during your [facility]/ Pre anesthesia/ Pre op appointment) - Candy, mints, gum and tobacco products are NOT permitted BLOOD THINNING MEDICATIONS - Stop NSAIDS (Ibuprofen, Advil, Aleve, Motrin, meloxicam, indomethacin, etc.) 7 days before surgery, as directed by your surgeon. - Stop Aspirin 7 days before surgery, as directed by your surgeon. - Stop Vitamin E, ALL multi-vitamins, herbals and dietary supplements 7 days before surgery. - Alert your surgeon if you are taking any other blood thinning medications such as clopidogrel (Plavix), warafin (Coumadin), cilostazol (Pletal) - You may take Tylenol (Acetaminophen) or any of your pain medications that do not contain aspirin or NSAIDS as needed. TRANSPORTATION - YOU MUST HAVE A RESPONSIBLE RAW MATERIAL HANDLER TAKE YOU HOME. A PRINTING EQUIPMENT MECHANIC OR RAW MATERIAL PLANNER CANNOT BE MADE A RESPONSIBLE RAW MATERIAL HANDLER. - We recommend that a responsible person stays with you overnight to take care of you. - You cannot stay in a hotel alone after outpatient surgery. You will not be permitted to have your surgery, if you do not have someone to take care of you. MINIMIZE RISK SURGICAL SITE INFECTION Notify Dr. Partida's office if any of the following apply: after hours [phone] and ask for pager [phone] - If you are prescribed an ANTIBIOTIC and will not be finished with it 2 weeks prior to surgery - If you develop symptoms such as a fever, cold, or flu, or have other changes to your health within ONE WEEK of scheduled surgery or the morning of surgery - Notice cuts, scrapes, blemishes, bug bites on operative extremity PRE-SURGICAL WASH WITH HIBICLENS INSTRUCTIONS Hibiclens (Chlorhexidine Gluconate solution 4.0% w/v) this special soap is used to reduce the germs on your skin to best prepare you for your upcoming surgery. You can find this at [employer]. Alternative: wash with antibacterial soap - Dial recommended. Please review the instructions below carefully PRIOR to your washing with Hibiclens : If you have any open skin areas like abrasions or a wound please check with the Preop testing department (P[facility]) or your surgeon's office before using this product. If you have an allergy to Chlorhexidine Gluconate do NOT use this product. Please call the Preop testing department or your surgeon's office for alternate instructions. DO NOT USE THIS SOAP ON YOUR FACE OR ON YOUR PRIVATE (GENITAL) AREA If you plan to wash your hair, do so using regular shampoo. Then rinse hair and body thoroughly to remove any shampoo residue. Thoroughly rinse your body with water from the neck down. Apply Hibiclens directly to your skin or on a clean wet washcloth and wash gently. If showering: move away from the shower stream when applying Hibiclens to avoid rinsing off too soon. Be sure to wash all skin areas (sparing your face and private area) including your back, abdomen, torso, and limbs. This soap will lather up although slightly less than a standard soap. Rinse thoroughly with warm water. Do not use a regular soap after applying, washing, and rinsing Hibiclens . Dry your skin with a towel. If lotions are required, use only those that are compatible with CHG (Chlorhexidine Gluconate). Put on a freshly laundered gown or clothes (clean clothes) after bathing. Use only as directed, see Hibiclens label for full product information and precautions. [email or web address] /#[email or web address] Antibiotic: You will receive a dose of an antibiotic through your IV just before your surgery and for open cases a dose of an antibiotic prior to discharge. You will not be given a prescription for an antibiotic after surgery. Hair removal: hair around the surgical area will be shaved with clippers at the surgery center the morning of surgery Wound Care/ Incisions: will be covered with a sterile dressing at the time of surgery. Keep operative dressing clean, dry and intact for 3 days and incisions covered once able to shower FMLA/ DISABILITY PAPERWORK: Please forward all paperwork to the office via fax [phone]. Paperwork is typically completed within a week of surgery. Include the name and fax number where you want the forms sent. Please make sure your name is on the paperwork. IMPORTANT REMINDERS - Leave ALL valuables and money at home or with family members. - Hearing aids, dentures and glasses may be worn the morning of surgery. - NO jewelry, body piercings, makeup, nail tongan, hairpins or contacts are to be worn the day of surgery. - DO NOT APPLY: Lotions or Deodorant (upper extremity surgery only), minimize the use of make up . - Wear loose-fitting clothing to accommodate bulky dressing or braces that may you may be wearing post op. Sweat pants, shorts and loose fitting tops that zip or button in the front will be easiest to put on after your surgery. - Max 2 people with you the day of surgery For questions, please call the office: [phone] documented in this encounter [facility] 11-23-2023 History of Present illness Narrative Program_ID:[id number] Access Code: [email or web address] URL: [email or web address] Date: 11-23-2023 Prepared By: Jaja Leonard Program Notes Exercises - Supine Transversus Abdominis Bracing - Hands on Stomach - 1 x daily - 7 x weekly - 4 sets - 10 reps - Quadruped Rocking Slow - 1 x daily - 7 x weekly - 4 sets - 20 reps - Supine March - 1 x daily - 7 x weekly - 4 sets - 10 reps - Supine Bridge - 1 x daily - 7 x weekly - 4 sets - 12-15 reps - Clamshell - 1 x daily - 7 x weekly - 4 sets - 12-15 reps - Prone Hip Extension - 1 x daily - 7 x weekly - 4 sets - 8-10 reps Episode Visit Count: 4 Therapist That Will Accept/Oversee The Plan Of Care: Jaja Leonard Start of Care Date: 09/14/23 Onset Date: 11/01/23 Plan of Care Certification Date: 11/02/23 Next Certification Due Date: 12/07/23 REHABILITATION AND SPORTS THERAPY PHYSICAL THERAPY TREATMENT NOTE ASSESSMENT: Bessie Solomon tolerated the session with decreased symptoms. She demonstrated improvements in activity tolerance with R hip AROM strengthening activities. The patient will continue to benefit from ongoing skilled physical therapy to progress toward set goals. PLAN FOR NEXT VISIT: PN 12/07/23. L hip surgery 12/13/23 gait training. add heel slide with strap, prone hip IR & isometrics, calf raises, mini squats and kneeling on stool with IR only SUBJECTIVE: Post-op wk 3. Patient Goals: restore functional ROM and strength of the RLE hip Functional Limitations: bending, stair negotiation, walking in the community, walking in the house, walking, standing, rising from a chair, sitting, physical activities, kneeling, running, jumping, squatting, working, sleeping, driving, dressing, cooking, cleaning, bed mobility, carrying, weight bearing, lifting Pain: Pain Pain Level: 0 Pain Location: Hip - Right Description: Aching Frequency: With movement Post Treatment Pain Post Treatment Pain Level: 1 Post Treatment Pain Location: Hip - Right OBJECTIVE MEASURES WITH LEVEL OF FUNCTION: TREATMENT: Therapeutic Exercise: 1: upright scifit bike level 2 5 min, subjective colleted 1:1 throughout 2: *Access Code: [email or web address] URL: [email or web address] Date: 11/23/2023 Prepared by: Jaja Turner'Jose Exercises - Supine Transversus Abdominis Bracing - Hands on Stomach - 1 x daily - 7 x weekly - 4 sets - 10 reps - 1 hold - Quadruped Rocking Slow - 1 x daily - 7 x weekly - 4 sets - 20 reps - Supine March - 1 x daily - 7 x weekly - 4 sets - 10 reps - Supine Bridge - 1 x daily - 7 x weekly - 4 sets - 12-15 reps - Clamshell - 1 x daily - 7 x weekly - 4 sets - 12-15 reps - Prone Hip Extension - 1 x daily - 7 x weekly - 4 sets - 8-10 reps - 1 hold (clamshells RLE only- other exercises both legs) 3: *pt. may complete current HEP once daily, No more than 10-15 min 3x day on active exercises. Pt. may prioritize the last 2 HEP exercises that challenger her the most and compelte the remaining exercises the next day. Skilled Intervention: Patient was educated in proper [...] and function . Patient education as noted. Billing Therapeutic Exercise Treatment Minutes: 40 Skilled Treatment Time Minutes (timed and untimed codes): 40 Total Session Time (minutes): 40 Session Start Time : 1056 Session Stop Time : 1136 Jaja Leonard PT documented in this encounter [facility] 11-14-2023 History of Present illness Narrative Program_ID:[id number] Access Code: [email or web address] URL: [email or web address] Date: 11-14-2023 Prepared By: Jaja Leonard Program Notes Exercises - Seated Ankle Pumps - 2 x daily - 7 x weekly - 2-3 sets - 20 reps - Supine Transversus Abdominis Bracing - Hands on Stomach - 1 x daily - 7 x weekly - 2-3 sets - 10 reps - Supine Hip Adduction Isometric with Ball - 1 x daily - 7 x weekly - 2-3 sets - 15-20 reps - Long Sitting Isometric Hip Abduction with Ball at Wall - 1 x daily - 7 x weekly - 3 sets - 10 reps - Prone Quad Stretch with Towel Roll and Strap - 1 x daily - 7 x weekly - 3 sets - 1 reps - Heel Raises with Counter Support - 1 x daily - 7 x weekly - 2-3 sets - 20 reps Episode Visit Count: 3 Therapist That Will Accept/Oversee The Plan Of Care: Jaja Leonard Start of Care Date: 09/14/23 Onset Date: 11/01/23 Plan of Care Certification Date: 11/02/23 Next Certification Due Date: 12/07/23 REHABILITATION AND SPORTS THERAPY PHYSICAL THERAPY TREATMENT NOTE ASSESSMENT: Bessie Solomon tolerated the session with decreased symptoms. She demonstrated difficulty with gait pattern using x1 crutches demonstrating limited R great toe push offz. The patient will continue to benefit from ongoing skilled physical therapy to progress toward set goals. PLAN FOR NEXT VISIT: week 2-4 exercises added to HEP SUBJECTIVE: Pt. had f/u with ortho. She was instructed that she can dc brace at home, today is her last day in brace in public. She may progress from 50% WB to 100% over 4 days weening from x1 crutch to no crutches.Pt. scheduled surgery for December 13, 2023 for the L hip. Patient Goals: restore functional ROM and strength of the RLE hip Functional Limitations: bending, stair negotiation, walking in the community, walking in the house, walking, standing, rising from a chair, sitting, physical activities, kneeling, running, jumping, squatting, working, sleeping, driving, dressing, cooking, cleaning, bed mobility, carrying, weight bearing, lifting Pain: Pain Pain Location: Hip - Right Description: Aching Frequency: With movement Post Treatment Pain Post Treatment Pain Level: 0 Post Treatment Pain Location: Hip - Right OBJECTIVE MEASURES WITH LEVEL OF FUNCTION: TREATMENT: Therapeutic Exercise: 1: *Access Code: [email or web address] URL: [email or web address] Date: 11/14/2023 Prepared by: Jaja Jean Exercises - Seated Ankle Pumps - 2 x daily - 7 x weekly - 2-3 sets - 20 reps - 1 hold - Supine Transversus Abdominis Bracing - Hands on Stomach - 1 x daily - 7 x weekly - 2-3 sets - 10 reps - 1 hold - Supine Hip Adduction Isometric with Ball - 1 x daily - 7 x weekly - 2-3 sets - 15-20 reps - 2-3 hold - Long Sitting Isometric Hip Abduction with Ball at Wall - 1 x daily - 7 x weekly - 3 sets - 10 reps - Prone Quad Stretch with Towel Roll and Strap - 1 x daily - 7 x weekly - 3 sets - 1 reps - 30 hold - Heel Raises with Counter Support - 1 x daily - 7 x weekly - 2-3 sets - 20 reps - 1 hold Skilled Intervention: Patient was educated in proper exercise technique and purpose for exercises. Skilled judgment was used in selection of appropriate interventions. Provided written instruction for home exercise program to facilitate proper performance and compliance. Correct performance of therapeutic exercises was facilitated with verbal, visual, and tactile cuing. Educated patient on rationale for performing exercises in regards to decreasing fatigue , including balance, increase ease of ADL, and ROM and function . Patient education as noted. Gait Training: Distance (feet): 160' 6x Gait Cues: uipright trunk, push off R toes, heel strike Assistive Device: unilateral crutch - L side Assist Level: SBA progressing to supervision Weight Bearing Status: 75% reported by pt. Skilled Intervention: Patient was provided stand by assist, supervision during pre-gait/gait training to prevent falls and insure safety. Facilitated proper gait cycle with the use of verbal, visual, and tactile cues for correction of gait deviations identified in the objective section above. Skilled judgment used to assess selection, proper sizing, and proper use of assistive device. Provided written instruction for home program to facilitate proper performance and compliance. Correct performance of home program was facilitated with verbal, visual, and tactile cueing. Self-Intermediate Management: 1: discussed protocol and WB progression per protocol 2: discussed upright bike keeping hip <90 flexion 3: discussed gradual weening from one crutch, gait pattern must be WNL before dc crutches per protocol 4: continue manual PROM exercises at home as Rx'd. Complete 2 active exercises every waking hour at home, complete exercises not done the next day. prioritize PROM HEP Skilled Intervention: Skilled judgment in the selection of proper modification for activity of daily living/home management based on clinical presentation, deficits, and needs. Provided written instruction for activities of daily living techniques to facilitate proper performance and compliance. Activity progression based on professional judgement. Minimum verbal cues for maintaining neutral spine alignment. Provided written instruction for home program to facilitate proper performance and compliance. Correct performance of home program was facilitated with verbal, visual, and tactile cueing. Billing Therapeutic Exercise Treatment Minutes: 25 Self-Care/Home Management Treatment Minutes: 5 Gait Training Treatment Minutes: 10 Skilled Treatment Time Minutes (timed and untimed codes): 40 Total Session Time (minutes): 40 Session Start Time : 1605 Session Stop Time : 1645 Jaja Leonard PT documented in this encounter [facility] 11-13-2023 Instructions Debbie Mustafa PA-C - 11/13/2023 12:43 PM EST Wound Care You can get your incisions wet in the shower, by allowing the water to run over them. Avoid scrubbing incisions. Do not soak or submerge your leg in a hot tub, bath tub or pool until you are at least 3 weeks post op and incisions well healed. Do not apply lotions or ointments to your incisions until you are 3 weeks post op and incisions are well healed. Medications: Finish Naproxen prescription. Then NSAID as needed for pain Pain medication - Over the Counter Tylenol (Acetaminophen) - Max 3000 mg per day MOTION RESTRICTIONS END TIMES: HIP FLEXION (bending hip) less than 90 degrees until 2 weeks after surgery OK to sit on toilet and put shoes on as tolerated - you may have to slouch or lean back Hyperextension 0 degrees (none) - Place a blanket or pillow under your thigh/ knees when lying flat until 2 weeks after surgery External Rotation with leg extended (straight) 0 degrees ) none) - Do not turn your foot out with your leg straight until 6 weeks after surgery ABduction (bringing your hip away from your body) NOT past shoulder width until 3 weeks after surgery ADduction / do not bring your leg past midline/ belly button (no crossing your legs) until [address] a pillow or 2 between your knees if laying on your side Extremes of motion and quick movements will continue to be uncomfortable It is normal to experience clicks, pops, cracks to varying degrees - as the scar tissue is maturing and you are gaining muscle strength and endurance Activities: Stop wearing the brace 11/15/23 - wear in public until then Ok to sleep in any comfortable position - either side recommend pillow between your knees It is normal to have morning stiffness and soreness at the end of the day. Monitor soreness if increasing daily - sign you are overdoing it. Physical therapy - not more than twice a week Continue to lay on your stomach for 1 to 2 hours per day to stretch the front of your hip. May do this in 5-10 minute increments. Avoid walking for exercise Upright stationary bike for motion only over the next 3-4 weeks - do not have feet attached to pedals (no strap or clipping in) - can work up to 20 minutes twice a day Pool at 4 weeks post op IF incisions are completely healed: avoid breast stroke, treading water, scissor kick/ motion. Ok to begin gentle freestyle and deep water jog at 5-6 weeks post op Lifting: Nothing greater than a gallon of milk until next office visit Weight Bearing: Progressive 11/15/23 - use 2 crutches for minimum 2-3 days working up to 50 % weight bearing then if able to comfortably bear more than 50% weight transition to 1 crutch or cane for at least 3 days - full weight bearing as tolerated day 3. Then cane/ crutch as needed. Avoid limping Driving: Once you have good leg control and are able to safely and confidently move from gas to break and slam on brake if necessary to protect yourself and others. Follow-up: 4 weeks Message office if you decide on timeframe for left hip documented in this encounter [facility] 11-13-2023 History of Present illness Narrative Images from the original note were not included. Post Op Follow Up Visit Bessie Solomon returns 12 days s/p 1. right hip arthroscopy. 2. Acetabuloplasty CPT 37349 3. Labral repair. CPT 99222 4. Femoroplasty. CPT 33417 5. Capsular Closure DOS: 11/01/23 PAIN EVALUATION 11/11/20232035 Pain Level: 3 Pain Location: Hip-Right Description: Aching;Sore;Stiffness;Surgical/Not Incision;Tightness Duration Amount of Time: 1 Duration Units: Hours Frequency: Intermittent Intervention/Comfort measure: Reposition;Cold;Positioning Comments: Only happens when I'm doing a tad too much and then I ice and rest until it abates Post op medication usage: Naproxen consistent use Brace intact Weight bearing: touchdown with 2 crutches Physical therapy once weekly Review of Symptoms: General: no fevers, chills, nausea/vomiting, malaise CV: No chest pain, no calf pain or redness Pulm: No shortness of breath GI: No nausea, vomiting or constipation HEENT: No head ache Physical Examination: This is a well appearing, well nourished patient in no acute distress. Breathes easily and has normal chest wall excursion. Affect is normal. Right hip: Sutures removed without incident. Incisions healing well with no erythema, drainage, induration. There are no signs of infection. Wounds re-enforced with steri strips. Intact sensation in the distribution of the lateral femoral cutaneous nerve No discomfort with IR log roll Hip flexion to 90 degrees without pain External rotation at 90 to 50 degrees without pain Calves soft, non tender, no palpable cords 5/5 strength with resisted DF/EHL/PF bilaterally Impression: Approximately 2 weeks s/p right hip scope. No evidence of infection or DVT Plan: Discussed Intra operative and post operative course and expectations discussed. Arthroscopy pictures reviewed. Wound Care You can get your incisions wet in the shower, by allowing the water to run over them. Avoid scrubbing incisions. Do not soak or submerge your leg in a hot tub, bath tub or pool until you are at least 3 weeks post op and incisions well healed. Do not apply lotions or ointments to your incisions until you are 3 weeks post op and incisions are well healed. Medications: Finish Naproxen prescription. Then NSAID as needed for pain Pain medication - Over the Counter Tylenol (Acetaminophen) - Max 3000 mg per day MOTION RESTRICTIONS END TIMES: HIP FLEXION (bending hip) less than 90 degrees until 2 weeks after surgery OK to sit on toilet and put shoes on as tolerated - you may have to slouch or lean back Hyperextension 0 degrees (none) - Place a blanket or pillow under your thigh/ knees when lying flat until 2 weeks after surgery External Rotation with leg extended (straight) 0 degrees ) none) - Do not turn your foot out with your leg straight until 6 weeks after surgery ABduction (bringing your hip away from your body) NOT past shoulder width until 3 weeks after surgery ADduction / do not bring your leg past midline/ belly button (no crossing your legs) until [address] a pillow or 2 between your knees if laying on your side Extremes of motion and quick movements will continue to be uncomfortable It is normal to experience clicks, pops, cracks to varying degrees - as the scar tissue is maturing and you are gaining muscle strength and endurance Activities: Stop wearing the brace 11/15/23 - wear in public until then Ok to sleep in any comfortable position - either side recommend pillow between your knees It is normal to have morning stiffness and soreness at the end of the day. Monitor soreness if increasing daily - sign you are overdoing it. Physical therapy - not more than twice a week Continue to lay on your stomach for 1 to 2 hours per day to stretch the front of your hip. May do this in 5-10 minute increments. Avoid walking for exercise Upright stationary bike for motion only over the next 3-4 weeks - do not have feet attached to pedals (no strap or clipping in) - can work up to 20 minutes twice a day Pool at 4 weeks post op IF incisions are completely healed: avoid breast stroke, treading water, scissor kick/ motion. Ok to begin gentle freestyle and deep water jog at 5-6 weeks post op Lifting: Nothing greater than a gallon of milk until next office visit Weight Bearing: Progressive 11/15/23 - use 2 crutches for minimum 2-3 days working up to 50 % weight bearing then if able to comfortably bear more than 50% weight transition to 1 crutch or cane for at least 3 days - full weight bearing as tolerated day 3. Then cane/ crutch as needed. Avoid limping Driving: Once you have good leg control and are able to safely and confidently move from gas to break and slam on brake if necessary to protect yourself and others. Looking for time to have left hip arthroscopy, she will contact the office when she decides on timeframe. Follow-up: 4 weeks Debbie Mustafa MS, PA-C The right hip (site) was assessed and sutures were removed as ordered. No dressing required. Patient instructed on wound care and verbalized understanding. documented in this encounter [facility] 11-09-2023 History of Present illness Narrative Episode Visit Count: 2 Therapist That Will Accept/Oversee The Plan Of Care: Jaja Leonard Start of Care Date: 09/14/23 Onset Date: 11/01/23 Plan of Care Certification Date: 11/02/23 Next Certification Due Date: 12/07/23 REHABILITATION AND SPORTS THERAPY PHYSICAL THERAPY TREATMENT NOTE ASSESSMENT: Bessie Solomon tolerated the session with decreased symptoms. She demonstrated difficulty with gait pattern and maintaining upright trunk with static standing and ambulation- improved with verbal cues while using mirror. The patient will continue to benefit from ongoing skilled physical therapy to progress toward set goals. PLAN FOR NEXT VISIT: add ankle pumps, quad sets, glute sets, abd bracing in hook lying, hip abd isometric, hip adduction isometric, prone quad stretch, and upright stationary bike without resistance - seat higher to avoid >90 hip flexion. Advise STM to anterior and lateral R hip away from incision until wk 3 SUBJECTIVE: Pt. reports some pinching in the front of the R hip with prolongd sitting. Pain: Pain Pain Level: 3 Pain Location: Hip - Right Description: Aching Frequency: With movement Post Treatment Pain Post Treatment Pain Level: 3 Post Treatment Pain Location: Hip - Right OBJECTIVE MEASURES WITH LEVEL OF FUNCTION: TREATMENT: Therapeutic Exercise: 1: glute sets in B crutches 2x10 2: quad sets in B crutches 2x10 Skilled Intervention: Patient was educated in proper [...] and function . Patient education as noted. Manual Therapy: 1: ER in flexion - hip flexed 70 rotate thigh so that ankle moves inward (>70 degrees of flexion is best) flexion 1-2 sets 20 reps 2-3 times a day, ~20 degrees 2: abduction - 25 degrees R hip flexion 1-2 sets 20 reps 2-3 times a day 3: prone hip IR - knee flexed 90 no limit, 1-2 sets 20 reps 2-3 times a day Skilled Intervention: Manual skills to improve joint mobility, ROM, and decrease pain. Utilized anatomy knowledge of the therapist, and assessment of patient's response to intervention. Neuromuscular Re-Education: 1: 1 min static standing in B crutches - using the mirror for upright posture Skilled Intervention: Skilled judgment used to assess appropriate program for balance and coordination activity. Education in proprioceptive/kinesthetic awareness during standing and dynamic activities. Ensured patient safety with use of B crutches Reviewed and educated patient on additions/changes for home program as noted above with an (*). Patient education as noted. Gait Training: Pre gait training: elbow flexion and extension standing in crutches Distance (feet): 80' 4x Gait Cues: upright trunk, keep base of crutches closer to the feet, try to heel strike and toe push off the left foot, avoid trunk flexion to advance the LE, and maintain 20 degree bend in the elbow Assistive Device: B crutches Assist Level: SBA, cues Weight Bearing Status: #20 Skilled Intervention: Patient was provided stand by assist during pre-gait/gait training to prevent falls and insure safety. Facilitated proper gait cycle with the use of verbal cues for correction of gait deviations identified in the objective section above. Skilled judgment used to assess selection, proper sizing, and proper use of assistive device. Education provided to patient regarding the proper sequence for level surface. Provided written instruction for home program to facilitate proper performance and compliance. Correct performance of home program was facilitated with verbal, visual, and tactile cueing. Self-Intermediate Management: 1: adjusted crutches - reviewed correct posture and adjustment Skilled Intervention: Skilled judgment in the selection of proper modification for activity of daily living/home management based on clinical presentation, deficits, and needs. Provided written instruction for activities of daily living techniques to facilitate proper performance and compliance. Reviewed patient specific diagnosis in relation to activities of daily living/home management. Activity progression based on professional judgement. Moderate verbal cues for maintaining neutral spine alignment. Provided written instruction for home program to facilitate proper performance and compliance. Correct performance of home program was facilitated with verbal, visual, and tactile cueing. Billing Therapeutic Exercise Treatment Minutes: 10 Manual TherapyTreatment Minutes: 10 Neuromuscular Re-Education Treatment Minutes: 5 Self-Care/Home Management Treatment Minutes: 5 Gait Training Treatment Minutes: 10 Skilled Treatment Time Minutes (timed and untimed codes): 40 Total Session Time (minutes): 40 Session Start Time : 1053 Session Stop Time : 1133 Jaja Leonard PT documented in this encounter [facility] 11-02-2023 History of Present illness Narrative Episode Visit Count: 1 Therapist That Will Accept/Oversee The Plan Of Care: Jaja Leonard Start of Care Date: 09/14/23 Onset Date: 11/01/23 Plan of Care Certification Date: 11/02/23 Next Certification Due Date: 12/07/23 Patient Identified by Name and Date of : Yes REHABILITATION AND SPORTS THERAPY PHYSICAL THERAPY EVALUATION PLAN OF CARE: Assessment: Bessie Solomon presents with diagnosis of acetabular labrum tear and post-op repair that interferes with bending, stair negotiation, walking in the community, walking in the house, walking, standing, rising from a chair, sitting, physical activities, kneeling, running, jumping, squatting, working, sleeping, driving, dressing, cooking, cleaning, bed mobility, carrying, weight bearing, lifting . She presents with impairments in ADL's, balance, flexibility, gait, independence in exercise, joint mobility, overall function, patient reported outcome measures, posture, range of motion, soft tissue healing, strength, symptom management, and tissue tenderness. PROMIS (Patient-Reported Outcomes Measurement Information System) scores were reviewed and physical function domain and self efficacy domain identified as a rehabilitation concern. Prognosis for therapy is Good due to: good support system/ coping skills, positive past response to therapy, acuteness of condition, good overall health status, current objective clinical presentation, within-session changes . She will benefit from skilled therapy services to meet the goals established for this plan of care as noted below. Goals for Episode of Care: created on through 02/22/24 [place] in home exercise program. Patient will decrease pain rating by 2 points to meet minimal clinical important difference for numeric pain rating scale. Patient will increase active ROM of R hip to 120 flexion to allow pt to to improve postural alignment. Patient will demonstrate increase in R hip flexion, extension, abduction, IR, and ER strength to 4/5 during manual muscle testing in order to improve function for prior functional tasks. Perform transitional sit <> stand with decreased report of symptoms/pain and with independence in 13 weeks. Normal gait. Reciprocal stair negotiation. Patient will increase balance to 20 seconds for single limb stance on RLE and 20 seconds for single limb stance on LLE. Patient will demonstrate improved neuromuscular coordination as evidenced by improve function for prior functional tasks. Patient Goals: restore functional ROM and strength of the RLE hip Planned Interventions, Frequency, and Duration: Current Frequency: 2x/week Duration: 16 weeks Total Number of Visits Planned: 32 Planned Treatment Interventions: Gait Training (78555), Manual therapy (26647), Neuromuscular re-education (09341), Therapeutic exercise (04391), Therapeutic activities (41259), Self-prison management (71245) PLAN FOR NEXT VISIT: gait training, posture in static/dynamic standing while using B crutches, PROM exercises. add ankle pumps, quad sets, glute sets, abd bracing in hook lying, hip abd isometric, hip adduction isometric, prone quad stretch, and upright stationary bike without resistance - seat higher to avoid >90 hip flexion. Add ER in <70 flexion and supine hp abd to 25, and prone IR PROM to HEP Patient demonstrates good understanding of plan of care and treatment. The above goals and plan of care were discussed and agreed upon by patient/family. 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 Intake Information: Prescription present Previous Treatment: Physical Therapy , Surgery , Pain meds , Muscle relaxer Falls Interview: No positive findings with falls interview Pain: Pain Pain Level: 6 Pain Location: Hip - Right Description: Aching Frequency: Continuous Post Treatment Pain Post Treatment Pain Level: 6 Post Treatment Pain Location: Hip - Right PROMIS Scales Higher is Better 10/08/2023 09/11/2023 07/23/2021 Phys Func - Score 39 (moderate dysfunction) 36 (moderate dysfunction) 45 (within normal limits) Phys Func - Percentile 14% 8% 31% Self-Eff Symptom - Score 35 (Low) 35 (Low) - Self-Eff Symptom - Percentile 7% 7% - T-scores: mean of general population = 50. 5 points is clinically meaningfully difference Percentiles provide an indication of how the patient's score ranks in relation to the general population. Higher percentile rankings indicate better function/quality of life. 50th percentile is the average of the general population and indicates half of respondents had a worse score. OBJECTIVE MEASURES WITH LEVEL OF FUNCTION: Posture / Alignment Posture: Forward head, Increased thoracic kyphosis Hip Observations R Hip Presents with: Incision, Swelling, Erythema, Ecchymosis Hip Brace: Post-op brace Sensation - Lower Extremity LE Light Touch Sensation: Grossly Intact LE PROM R Hip Extension: 0 Degrees (prone) R Hip Flexion: 90 Degrees (limited tolerance) R Hip ABduction: 25 Degrees R Hip Internal Rotation: 45 Degrees R Hip External Rotation: (NT beyond neutral 0) Gait Gait: Modified Independent Gait Distance (feet): 50 Gait Device: Crutches Gait Deviations: Right Lower Extremity Gait Deviations Right Lower Extremity: Push off during terminal stance decreased, Lacks hip extension beyond mid-stance, Lacks full knee extension during terminal swing, Knee stability during stance phase decreased, Knee flexion during stance increased, Circumduction, Heel strike during initial stance decreased, Foot clearance decreased, Weight bearing decreased (expected and part of post-op precautions) Gait Observation: requires cues to avoid flexion trunk Education: Education Learning Preferences: Demonstration, Explanation, Printed Materials, Performance Barriers: Acuity of Illness Learning/educational needs: Plan of Care, Home exercise program, Posture, Brace Fit, Gait Training, Crutch Training, Safety Education Provided: Yes, see treatment interventions for education provided Education Provided To: Patient, Caregiver Education Mode/Type: Explanation/Discussion, Literature/Printed Materials, Performance, Demonstration Response to Education/Teach Back: States/Identifies, Return Demonstration TREATMENT: PT Treatment Interventions: Therapeutic Exercise, Self-Intermediate Management, Therapeutic Activity Evaluation Therapeutic Exercise: 1: prone lay 5-2- min 7-8x/day 2: hip circumduction 45 to 70 degrees of R hip flexion 1-2 sets 20 reps 2-3 times a day 3: supine hip roll IR 1-2 sets 20 reps 2-3 times daily 4: supine PROM flexion to 90 degrees 1-2 sets of 20 reps, 2-3 times day Skilled Intervention: Patient was educated in proper exercise technique and purpose for exercises. Skilled judgment was used in selection of appropriate interventions. Provided written instruction for home exercise program to facilitate proper performance and compliance. Correct performance of therapeutic exercises was facilitated with verbal, visual, and tactile cuing. Educated patient on rationale for performing exercises in regards to decreasing fatigue , including balance, increase ease of ADL, and ROM and function . Patient education as noted. Therapeutic Activity: 1: sitting EOB <> supine 2x 2: supine <> rolling L <> prone 1x (cues for feet together without rotating at the hips/feet) Skilled Intervention: Educated on proper/safe technique for activities performed today. Activity progression based on professional judgment. Assisted proper completion of task with verbal, visual, and tactile cueing and correction of abnormal movement patterns. Provided written instruction for home program to facilitate proper performance and compliance. Correct performance of home program was facilitated with verbal, visual, and tactile cueing. Self-Intermediate Management: 1: discussed precautions WB 2: given list of ROM restrictions on HEP hand out 3: instruction to caregiver regarding positioning, precautions, and how to assist with PROM 4: postural education with use of crutches reminder 5: encouraged completion of PROM with caregiver on bed, suggested high enough surface to optimize body mechanics for caregiver Skilled Intervention: Skilled judgment in the selection of proper modification for activity of daily living/home management based on clinical presentation, deficits, and needs. Educated the patient regarding recommendations and provided written instruction to facilitate compliance. Provided written instruction for activities of daily living techniques to facilitate proper performance and compliance. Reviewed patient specific diagnosis in relation to activities of daily living/home management. Activity progression based on professional judgement. Moderate verbal cues for maintaining neutral spine alignment. Provided written instruction for home program to facilitate proper performance and compliance. Correct performance of home program was facilitated with verbal, visual, and tactile cueing. Billing * Evaluation Low Complexity: 1 Unit Therapeutic Exercise Treatment Minutes: 10 Therapeutic Activity Treatment Minutes: 5 Self-Care/Home Management Treatment Minutes: 10 Skilled Treatment Time Minutes (timed and untimed codes): 45 Total Session Time (minutes): 45 Session Start Time : 1052 Session Stop Time : 1137 Jaja Leonard PT documented in this encounter [facility] 11-01-2023 Note HNO ID: [id number] Author: GUZMAN GARCÍA APRN.CERTIFIED CREDIT COUNSELOR Service: ? Author Type: Nurse Sawdust Drier Type: Anesthesia Procedure Notes Filed: 11/01/2023 13:28 Note Text: ANESTHESIOLOGY PROCEDURE NOTE Airway General Information Procedure Start Time/Medication Administration: 11/01/2023 1:11 PM Patient location during procedure: OR Timeout Performed Pre-procedure: timeout performed Consent Obtained: Yes Patient identity confirmed: arm band and patient Staffing Performed by: CERTIFIED CREDIT COUNSELOR Indications and Patient Condition Indications for airway management: anesthesia Preoxygenated: yes anesthesia circuit Method: sleep Difficult Mask: No Final Airway Details Final airway type: endotracheal airway Final Endotracheal Airway: ETT Cuffed: yes Successful intubation technique: video laryngoscopy Devices used: Rose and intubating stylet Endotracheal tube insertion site: oral Blade: Kyree Blade size: #3 ETT size (mm): 7.0 Measured from: lips Measurement (cm): 22 Placement verified by: chest auscultation and capnometry Cormack-Lehane Classification: grade I - full view of glottis Number of attempts at approach: 1 Airway not difficult SIGNATURE: Guzman García APRN.CRNA PATIENT NAME: Bessie Solomon DATE: November 01, 2023 TIME: 1:27 PM CSN: [id number] [facility] 10-30-2023 Miscellaneous Notes MONIKA 05/15/2023 Patient phones requesting refills as follows: Requested Prescriptions Pending Prescriptions Disp Refills TEZSPIRE 210 mg/1.91 mL (110 mg/mL) pnij [Pharmacy Med Name: TEZSPIRE PEN 210MG/1.91ML (110MG/ML)] 1.91 mL 6 Sig: INJECT 210MG SUBCUTANEOUSLY EVERY 4 WEEKS Please review and advise. Janina Monet RN documented in this encounter [facility] 10-26-2023 History of Present illness Narrative Radiology Service Progress Note PATIENT NAME: Bessie Solomon DATE OF SERVICE: October 26, 2023 TIME: 10:46 AM PATIENT IDENTITY VERIFICATION COMPLETED USING TWO (2) IDENTIFIERS: Name and Date of confirmed by patient verbally. FALL SCREENING: Has the patient had 2 falls in the last year or 1 fall with injury or currently using an Ambulatory Assistive Device (Walker, Cane, Wheelchair, Crutches, etc.)? No PATIENT GENDER DATA: Female. status: : No status: NO. PATIENT RELEVANT IMPLANT DATA REVIEWED: Not Applicable PATIENT PRESENTS WITH AN IMPLANTABLE OR ATTACHED INSTRUMENTATION DESIGNER: No RADIOLOGY DEPARTMENT: General X-ray: Exam(s) Completed: Pelvis X-Ray: Pelvis with Hip Bilateral and Wt. Bearing PERIPHERAL IV DATA: Not applicable SIGNED BY: RT Loan(R) October 26, 2023 10:46 AM documented in this encounter [facility] 09-03-2023 History of Present illness Narrative Images from the original note were not included. Patient: Jenny Solomon PCP: Diane Bazzi MD CC: follow up HPI: Jenny Solomon [...] as needed. Continue Trezspire injections per Dr. Hankins. 2. Pain in joint, multiple sites - [...] and edited and updated as necessary. Bessie Pleitez PA-C documented in this encounter [facility] 08-28-2023 Miscellaneous Notes MONIKA: 05/04/23 Patient phones [...] Rubia Cheema LPN documented in this encounter [facility] 08-20-2023 Miscellaneous Notes The following approved medication requests have been transmitted electronically. Requested Prescriptions Signed Prescriptions Disp Refills fluticasone-salmeterol (ADVAIR DISKUS) 500-50 mcg/dose dsdv 180 Each 3 Sig: USE 1 INHALATION BY MOUTH TWICE DAILY - RINSE MOUTH OUT AFTER USE Authorizing Provider: SAM HANKINS MD Patient phones requesting refills as follows: Requested Prescriptions Pending Prescriptions Disp Refills fluticasone-salmeterol (ADVAIR DISKUS) 500-50 mcg/dose dsdv [Pharmacy Med Name: Advair Diskus 500-50 MCG/ACT Inhalation Aerosol Powder Breath Activated] 180 Each 3 Sig: USE 1 INHALATION BY MOUTH TWICE DAILY - RINSE MOUTH OUT AFTER USE MONIKA 05/15/23 Please review and advise. Alba Barrett RN documented in this encounter [facility] 08-07-2023 Miscellaneous Notes I placed the GI referral for her, can we fax to the office for Dr. Radha Alcantara in [place]/ Dr. Vlad Fuller in [place] and let patient know once sent. documented in this encounter [facility] 08-03-2023 History of Present illness Narrative Subjective: [...] were no ulcers. documented in this encounter [facility] 07-09-2023 Miscellaneous Notes July 09, 2023 PID: [id number] Jenny Solomon [address] [place] [id number] Dear Ms. Solomon, Your recent breast imaging exam on 07/06/2023 showed a possible finding that requires additional imaging studies for a complete evaluation. Most such findings are probably benign (not cancer). If you have a healthcare provider who ordered/prescribed your screening mammogram: Please call [phone] or [phone]: [phone] to schedule an appointment for your additional [...] and reports are kept on file at [facility] as part of your permanent medical record, and are available for your continuing care. Thank you for allowing us to help in meeting your health care needs. Sincerely, Dr. French Interpreting Radiologist [facility] (Additional imaging) documented in this encounter [facility] 06-26-2023 Nurse Note REVIEW OF SYSTEMS: General: [...] Mammogram screening? N/A Last Colonoscopy: N/A Ivis Gaytan LPN documented in this encounter [facility] 06-26-2023 Instructions Ben Leblanc MD - 06/26/2023 3:55 PM EDT [...] If you do not have a responsible jeep driver (family member or friend) with you [...] exam. 2 08/2019 documented in this encounter [facility] 06-26-2023 History of Present illness Narrative HISTORY [...] today at the request of Dr. Diane Bazzi MD for my opinion and advice regarding [...] entered by the nurse and reviewed by ri Nursing Notes: Ivis Gaytan LPN 06/26/2023 4:04 PM Signed REVIEW OF [...] Mammogram screening? N/A Last Colonoscopy: N/A Ivis Gaytan LPN PHYSICAL EXAMINATION: General: The patient is [...] findings have been communicated to Dr. Diane Bazzi MD via shared medical record. This note will be forwarded to Dr. Diane Bazzi MD. Return to Clinic: The patient is instructed to follow-up with me 1 week post operatively. Ben Leblanc III, MD documented in this encounter [facility] 06-16-2023 History of Present illness Narrative This note was created using Philoriter. Subjective Jenny Solomon is a 37 year [...] F) Resp 12 Ht 165.1 cm (5' 5) Wt 91.6 kg (202 lb) LMP 05/27/2023 [...] which included preparing to see the patient, [id number] patient care, completing clinical documentation, obtaining and/or reviewing separately obtained history, performing a medically appropriate examination, counseling and educating the patient/family/caregiver, and ordering medications, tests, or procedures. Diane Bazzi MD documented in this encounter [facility] 05-30-2023 History of Present illness Narrative Subjective [...] of care. This note was generated using Spiracur software. It may contain errors in wording, punctuation, or spelling. Jayden Banegas APRN.BENY documented in this encounter [facility] 05-25-2023 History of Present illness Narrative This note was created using IngBoo. Subjective Jenny Solomon is a 37 year [...] could work. Still not sleeping well. Saw take off man a week after seeing me. ?AVN. Keeps [...] indicated. Refer to ortho as needed. Diane Bazzi MD documented in this encounter [facility] 05-21-2023 Miscellaneous Notes Tezspire approved. 05/17/23 to 05/17/2024. Patient aware. Faxed [facility] form-will await determination. Initiated Tezspire re-auth form. Given to Dr. Hankins for signature. Will attach office notes when yesterday's visit signed. Called [facility] provider line at [phone] to initiate re-auth on Tezspire. Group # [id number] ID# [id number] Spoke with Enrique. She will fax the form to our office. documented in this encounter [facility] 05-18-2023 Miscellaneous Notes See MyChart reply documented in this encounter [facility] 05-04-2023 History of Present illness Narrative Images from the original note were not included. . [facility] Note Patient name: Jenny Solomon PCP: Diane Bazzi MD CC: Follow-up asthma HPI: Jenny Solomon [...] advised obesity portends poor control of asthma True Gaytan MD [facility] documented in this encounter [facility] 04-13-2023 History of Present illness Narrative Images from the original note were not included. This note was created using IngBoo. Subjective Jenny Solomon is a 37 year [...] to 6 hours past 2 days. Saw RESIDENTIAL DESIGNER in case was due to ovary or [...] and regular exercise and adequate sleep. Diane Bazzi MD documented in this encounter [facility] 04-01-2023 History of Present illness Narrative Presents to [facility] care triage with severe neck pain. She [...] with her and will take her to [facility] ED. documented in this encounter [facility] 01-03-[address] [facility] 09-06-22. Patient requesting medications be sent to [facility] mail order. Patient phones requesting refills [...] after use. Please review and advise. Gina Cyr RN documented in this encounter [facility] 12-18-2022 Miscellaneous Notes A new consent is not needed for home use per main campus. Patient is interested in doing self-injections. She is aware to come in for nurse visit as scheduled in December for self-administration teaching and consent for home use. Called [facility] provider line at [phone] to make sure patient is approved for home injections and Tezspire auto-injector. Per [facility] (spoke with Em Tripathi), Tezspire is approved for home use and auto-injector. Please send auto-injector script to [facility]. Dr. Hankins, are you able to get consent via [...] 4 weeks. Please review and advise. Gina Cyr RN Aware. Thank you. Sam Hankins MD PFS were being sent from [employer] patient [employer]. We just got Tezspire approved with her new insurance ([facility]), so we will need to call and make sure it is for auto-injectors. Yes, as long as patient is comfortable with home administration. Have her injections been from the auto-injector or prefilled syringes? Sam Hankins MD Tezspire approved for home-use per [facility] allergy. Please advise if patient is a candidate. Re-faxed PA form with nurse visit CPT code. Yomaira from [email or web address] phones. States that with the J code provided for the medication, the injection compenent of getting the Tezpire does not need a PA. However, recommended sending in request with code for either nurse visit or office visit. Closed the other PA request, Ref #[id number] Patient would like to continue getting injections in [place] as she only has Fridays off work. Faxed medical PA to [facility] requesting nurse visits at in-network benefits. Patient states she also requested this from insurance and is waiting to hear back. Will await determination. Called [facility] [phone] to check status on Tezspire medical PA. (Pharmacy PA approved.) Spoke to [place]. Specialty pharmacy is [facility]. [facility] doesn't have medical PA on file. Re-faxed form and clinicals. May be OON benefits if not approved at [facility] facility. 15 day turn around time. [facility] is in-network. Jaida barrow worker (Dr. Hargrove) is in-network. Will await determination for medical PA. Tezspire approved through pharmacy benefits 11-29-22 to 06-01-23. Case # [id number]. Waiting for medical PA determination. Faxed pharmacy PA to [phone] and medical PA to [phone]. Faxed with clinicals and last camila/victoria. Will await determination. Filled out medical and pharmacy PA forms. Attached clinicals. Placed on Dr. Hankins's desk for signature. Called [facility] provider line [phone] to check on status of provider portal set-up. ([facility] set up provider portal last week, but has not heard anything back.) [facility] will not do authorization via phone. Will fax pharmacy PA form to our office. She will also need medical PA to approve administrations, which [facility] will fax. Received benefits investigation from Tezspire. Patient has $8400 individual deductible, nothing met. After deductible met, patient is 80% covered. She is approved for the Tezspire Together Fast Start Program. Filled out form and faxed. Patient has appointment 3-10. Previously set up delivery of Tezspire for 3-7. Still waiting to hear back from [facility] insurance provider portal to initiate PA. Tezspire [...] is good for 3 years. Tezspire Together # [phone]. Waiting to hear from [email or web address] provider portal to start PA process. (Medical and pharmacy PA needs done per [email or web address] [facility] [phone] to initiate PA on Tezspire. Spoke with Jessica Young code [phone]. Group # [id number] [facility] is specialty pharmacy. Was told a medical (for injections in the office) and pharmacy (for the medication) auth needs initiated through [employer]. To initiate pharmacy auth: Go to provider resources, then pharmacy. To intiate medicacal auth: PA referral form [facility] started process for [facility] provider portal. documented in this encounter [facility] 12-01-2022 History of Present illness Narrative 210 mg Tezspire injected SQ into left arm without difficulty. No wait required. LOT:[id number] Expires: 11/18 documented in this encounter [facility] 11-22-2022 Miscellaneous Notes Please see images of new insurance cards-please enter into registration. documented in this encounter [facility] 10-12-2022 Miscellaneous Notes Received signed forms from patient. [facility]. Will await response. Charlesre forms sent to pt via [employer]. Will upload and send back once complete. Called [employer] patient assistance program-spoke to Ivette. Patient signature [...] patient gave this info via phone to [employer]-will need to call patient. Form in Dr. Hankins's file for signature. documented in this encounter [facility] 10-06-2022 History of Present illness Narrative 210 mg Tezspire given SQ into left upper arm without difficulty. LOT: [id number] expires 11/18 No 30 minute wait time. Patient is losing insurance tomorrow. She will reach out to Tezspire program hoping to qualify for the bridge program until her new insurance will activate. She will keep the office updated. documented in this encounter [facility] 09-26-2022 Miscellaneous Notes documented in this encounter [facility] 09-06-2022 History of Present illness Narrative 210 mg Tezspire given SQ in right arm. LOT: [id number] expires 11/18. No 30 minute wait required. [...] In July,, methacholine challenge test completed at [facility] was positive. Symbicort 160-4.5 was prescribed at [...] Claritin and Zyrtec without clear relief. 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 Sam Hankins MD documented in this encounter [facility] 09-06-2022 Nurse Note Patient here for follow up visit. Reports asthma is doing much better. Only using Albuterol 1-2 daily for chest tightness that turns into wheezing. Tolerating Tezspire well. Only concern is insurance coverage:Advair will no longer be covered as of 09-24-22. Preferred: Advair Diskus, Breo Ellipta, Symbicort. Using Previa and Singulair as prescribed. documented in this encounter [facility] 08-11-2022 Nurse Note Tezspire injection administered per order. See emar for details. Lot# [id number] Exp: 08-23-24. Patient supplied medication from specialty pharmacy. Patient left office without symptoms. Next dose requested via fax. Patient has f/u appointment with Dr. Hankins 09-06-22. documented in this encounter [facility] 07-31-[address] [facility] 05-30-22 Received letter from [facility]. Advair will no longer be covered as of 09-24-22. Preferred: Advair Diskus, Breo Ellipta, Symbicort. Please advise. documented in this encounter [facility] 07-13-2022 History of Present illness Narrative Images from the original note were not included. . [facility] [place] Note Patient name: Jenny Solomon PCP: Diane Bazzi MD CC: follow-up asthma HPI: Jenny Solomon 36 year old non-smoking female with obesity and asthma. At [facility], having issues with her asthma, not well [...] viral URI, COVID negative. 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 Since her [...] Ref Range & Units 3 mo ago [place] IgE <0.35 kU/l <0.35 [place] Class Class 0 Class 0 Chaim [...] advised -Obesity portends poor control of asthma True Gaytan MD [facility] [place] documented in this encounter [facility] 06-16-2022 History of Present illness Narrative CC: Patient presents with: Physical: Annual Physical Immunizations: Flu vaccination HPI Jenny Solomon is a 36 year old female established patient of Dr. Bazzi who presents today for annual physical exam. [...] diet of 1000 mg/day for under 50, 6467-2508 mg/day for 50+ - Discussed need and [...] - continue with recommendation by pulmonology and barrow worker 3. Muscle cramping - ICD9: 729.82, ICD10: [...] Rupal Storm APRN.CNP documented in this encounter [facility] 06-14-2022 History of Present illness Narrative Risks, benefits alternatives and personnel for treatment with Tezspire were reviewed with the patient and she consents to proceed. Written consent was obtained at today's visit. Sam Hankins MD Pt identified by name and birthdate. [...] complaints or concerns. documented in this encounter [facility] 06-12-2022 Miscellaneous Notes The following approved medication requests have been transmitted electronically. Requested Prescriptions Signed Prescriptions Disp Refills tezepelumab-ekko (TEZSPIRE) 210 mg/1.91 mL (110 mg/mL) syringe 1.91 mL 11 Sig: Inject 1.91 mL subcutaneously every 4 weeks. Authorizing Provider: SAM HANKINS MD Tezspire approved 05/10/22 to 12/08/22 Use [facility] We have the 1st dose for injection- please escribe new script to pharmacy for future doses. Appeal letter, clinicals, appropriate labs, and PFT's faxed to appeals department at [phone]. Will await determination. Letter completed for the appeal. Please forward to the patient's insurance company. Sam Hankins MD Received fax from [place] [facility]-Tezspire was denied due to: Patient must try formulary alternatives (Dupixent, Fasenra, Nucala or Xolair). Written letter needed for appeal. Fax appeal letter and clinicals/labs to [phone] PA# [id number] Scheduled patient for 1st injection of Tezspire with the starter kit from the company. One hour wait. No epi pen needed. Every injection needs to be done in office with 30 minute wait. PA form faxed to [facility] dept fax # [phone]. Will await determination. Prior authorization form completed. Based on the patient's IgE level, allergy skin test results, absolute eosinophil count and FeNO, she does not qualify for treatment with Dupixent, Fasenra, Nucala or Xolair. Sam Hankins MD Received summary of benefits. Tezspire covered at 100% through [employer]. No copay, no deductible amount. PA needed-[employer] PA form initiated. Form indicates patient needs to try Nucala, Fasenra, Dupixent or Xolair first. Please advise. Tezspire is sending starter pack jun 06 for patient but PA needs to be completed also. Forms completed for Tezspire, on desk for signature. Will fax to once completed. documented in this encounter [facility] 05-30-2022 History of Present illness Narrative Bessie [...] In July,, methacholine challenge test completed at [facility] was positive. Symbicort 160-4.5 was prescribed at [...] Claritin and Zyrtec without clear relief. 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 Sam Hankins MD documented in this encounter [facility] 05-30-2022 Nurse Note Patient using astelin and flonase, also taking gm. Reports still has runny nose, but nasal symptoms are better. Using albuterol about 3 times a week during night. [place] using 3 times daily. Using Spiriva and Advair. documented in this encounter [facility] 04-19-2022 Instructions Sam Hankins MD - 04/19/2022 4:08 PM EDT You [...] may be considered documented in this encounter [facility] 04-19-2022 History of Present illness Narrative This [...] In July,, methacholine challenge test completed at [facility] was positive. Symbicort 160-4.5 was prescribed at [...] Claritin and Zyrtec without clear relief. 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 She does not know details about the [...] suffer from frequent sinopulmonary infections. ASTHMA: See NOME ECZEMA: The patient has no history of [...] (FLONASE) 50 mcg/actuation nasal spray Use 1 [place] in each nostril once daily. 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 Sam Hankins MD documented in this encounter [facility] 04-19-2022 Nurse Note Pt states since got [...] not had since. documented in this encounter [facility] 04-19-2022 History of Present illness Narrative PULM FUNCTION SMARTBLOCK: Provider: Sam Hankins MD Assisting Tech: Madan Webb RRT Spirometry w/BD: 1 Exhaled Nitric Oxide: 1 documented in this encounter [facility] 04-19-2022 Procedure note Associated Order(s): NITRIC OXIDE, [...] TIME: 2:20 PM documented in this encounter [facility] 03-30-2022 History of Present illness Narrative PULM FUNCTION SMARTBLOCK: Provider: Bessie Pleitez PA-C Assisting Tech: JULIAN Parikh Exhaled Nitric Oxide: 1 documented in this encounter [facility] 03-30-2022 History of Present illness Narrative [facility] [place], 03/30/2022: Name: Jenny Solomon : 1985 The patient is here today with Gabe, spouse, who attends the entire visit, exam and discussion. HPI: Jenny Solomon is a 36 yo female morbidly obese never smoker with PMH significant for asthma. Methacholine Inhalation Challenge 08/02/2021 at [facility] positive for reactivity suggesting asthma. Patient started on Symbicort. Covid 12 October 2021. Did not require hospitalization. The patient is here for follow up of asthma. Since the last Pulmonary Clinic visit 07/26/[address] Gaytan, the patient admits to compliance with prescribed [...] Electronically Signed On 07-26-2021 16:19:23 EDT by True Brown, M.D. Exhaled nitric oxide ([place]), 03/30/2022: 9 07/26/2021: 10 (normal < 20). Positive [facility] 07/2021 CXR, 12/31/2021 IMPRESSION: No acute [...] appointment scheduled 04/19 - IGE BLD - [facility] - EOSINOPHIL ABS COUNT - NITRIC OXIDE, [...] understanding and acceptance of my answers. Bessie Pleitez PA-C documented in this encounter [facility] 02-28-2022 History of Present illness Narrative SUBJECTIVE: COVID-19 VACCINE(3 - Booster for Moderna series) due on 06/27/2021 ANNUAL PCP TEAM CHRONIC DISEASE VISIT due on 07/28/2021 Presents for follow-up visit today. HPI excerpted from previous visit: Since she was last here she was seen by pulmonology, Dr. Gaytan July 2021 she underwent testing which was [...] Abs Lymph 1.00 - 4.00 k/uL 1.81 [place]% % 8.4 Abs [place] <0.87 k/uL 0.57 Eosin% % 0.9 Abs [...] now. Addition of montelukast. Follow-up with Dr. Gaytan - schedule follow up appt - MONTELUKAST [...] of her asthma. Recommend she see Dr. Hankins for further evaluation and recommendations / treatment as indicated. Dariusz Berry APRN.CNS Medical Decision Making: Problems: Moderate: 1+ chronic illnesses with change Risk: Moderate: Drug management Medical Decision Making Level: 4 - Moderate documented in this encounter [facility] 01-30-2022 Miscellaneous Notes bro documented in this encounter [facility] 01-01-2022 Miscellaneous Notes Patient notified by a [employer]ient message. No bacterial infection noted on chest x-ray. Continue supportive therapies as discussed. Follow-up with PCP if symptoms are not improving. Jayden Banegas APRN.BENY documented in this encounter [facility] 12-30-2021 Instructions Barby Daugherty APRN.CNP - 12/30/2021 6:02 PM EDT [facility] between 8-1130 am for chest xray [...] inability to swallow. documented in this encounter [facility] 12-30-2021 History of Present illness Narrative Subjective The history is provided by the patient. No credit administration manager was used. Nasal Congestion Associated symptoms include [...] have confirmed and edited as necessary, the [facility] Review of Systems Constitutional: Positive for malaise/fatigue. [...] detail warranting prompt ER evaluation. Barby Daugherty APRN.CNP documented in this encounter [facility] 09-09-2021 History of Present illness Narrative Radiology Service Progress Note PATIENT NAME: Jenny Solomon DATE OF SERVICE: September 09, 2021 TIME: 4:20 PM PATIENT IDENTITY VERIFICATION COMPLETED USING TWO [...] Yes RADIOLOGY DEPARTMENT: General X-ray: Exam(s) Completed: Chest X-Ray PERIPHERAL IV DATA: Not applicable SIGNED BY: RT Charlene(R) September 09, 2021 4:20 PM documented in this encounter [facility] 04-19-2021 History of Past i llness Narrative Problem Noted Date Diagnosed Date Resolved Date Chest pain 04/19/2021 12/04/2023 Essential hypertension, benign 04/19/2021 12/04/2023 Last Assessment & Plan: Assessment: controlled on rx Last 14 BP Last 14 Encounter BP Readings: Date: BP: 10/24/2023 126/82 09/07/2023 118/80 09/03/2023 128/84 08/03/2023 128/80 07/23/2023 111/63 06/26/2023 128/84 06/16/2023 122/76 05/30/2023 118/80 05/25/2023 137/86 05/15/2023 138/85 05/04/2023 122/68 04/13/2023 118/84 01/05/2023 124/82 12/29/2022 120/63 documented as of this encounter (statuses as of 12/04/2023) [facility] History of Past illness Narrative* Problem Noted Date Diagnosed Date Resolved Date Chest pain 04/19/2021 12/04/2023 Essential hypertension, benign 04/19/2021 12/04/2023 Last Assessment & Plan: Assessment: controlled on rx Last 14 BP Last 14 Encounter BP Readings: Date: BP: 10/24/2023 126/82 09/07/2023 118/80 09/03/2023 128/84 08/03/2023 128/80 07/23/2023 111/63 06/26/2023 128/84 06/16/2023 122/76 05/30/2023 118/80 05/25/2023 137/86 05/15/2023 138/85 05/04/2023 122/68 04/13/2023 118/84 01/05/2023 124/82 12/29/2022 120/63 documented as of this encounter (statuses as of 12/07/2023) [facility] History of Past illness Narrative* Problem Noted Date Diagnosed Date Resolved Date Chest pain 04/19/2021 12/04/2023 Essential hypertension, benign 04/19/2021 12/04/2023 Last Assessment & Plan: Assessment: controlled on rx Last 14 BP Last 14 Encounter BP Readings: Date: BP: 10/24/2023 126/82 09/07/2023 118/80 09/03/2023 128/84 08/03/2023 128/80 07/23/2023 111/63 06/26/2023 128/84 06/16/2023 122/76 05/30/2023 118/80 05/25/2023 137/86 05/15/2023 138/85 05/04/2023 122/68 04/13/2023 118/84 01/05/2023 124/82 12/29/2022 120/63 documented as of this encounter (statuses as of 12/07/2023) [facility] History of Past illness Narrative* Problem Noted Date Diagnosed Date Resolved Date Chest pain 04/19/2021 12/04/2023 Essential hypertension, benign 04/19/2021 12/04/2023 Last Assessment & Plan: Assessment: controlled on rx Last 14 BP Last 14 Encounter BP Readings: Date: BP: 10/24/2023 126/82 09/07/2023 118/80 09/03/2023 128/84 08/03/2023 128/80 07/23/2023 111/63 06/26/2023 128/84 06/16/2023 122/76 05/30/2023 118/80 05/25/2023 137/86 05/15/2023 138/85 05/04/2023 122/68 04/13/2023 118/84 01/05/2023 124/82 12/29/2022 120/63 documented as of this encounter (statuses as of 12/10/2023) [facility] History of Past illness Narrative* Problem Noted Date Diagnosed Date Resolved Date Chest pain 04/19/2021 12/04/2023 Essential hypertension, benign 04/19/2021 12/04/2023 Last Assessment & Plan: Assessment: controlled on rx Last 14 BP Last 14 Encounter BP Readings: Date: BP: 10/24/2023 126/82 09/07/2023 118/80 09/03/2023 128/84 08/03/2023 128/80 07/23/2023 111/63 06/26/2023 128/84 06/16/2023 122/76 05/30/2023 118/80 05/25/2023 137/86 05/15/2023 138/85 05/04/2023 122/68 04/13/2023 118/84 01/05/2023 124/82 12/29/2022 120/63 documented as of this encounter (statuses as of 12/12/2023) [facility] History of Past illness Narrative* Problem Noted Date Diagnosed Date Resolved Date Chest pain 04/19/2021 12/04/2023 Essential hypertension, benign 04/19/2021 12/04/2023 Last Assessment & Plan: Assessment: controlled on rx Last 14 BP Last 14 Encounter BP Readings: Date: BP: 10/24/2023 126/82 09/07/2023 118/80 09/03/2023 128/84 08/03/2023 128/80 07/23/2023 111/63 06/26/2023 128/84 06/16/2023 122/76 05/30/2023 118/80 05/25/2023 137/86 05/15/2023 138/85 05/04/2023 122/68 04/13/2023 118/84 01/05/2023 124/82 12/29/2022 120/63 documented as of this encounter (statuses as of 12/14/2023) [facility] History of Past illness Narrative* Problem Noted Date Diagnosed Date Resolved Date Chest pain 04/19/2021 12/04/2023 Essential hypertension, benign 04/19/2021 12/04/2023 Last Assessment & Plan: Assessment: controlled on rx Last 14 BP Last 14 Encounter BP Readings: Date: BP: 10/24/2023 126/82 09/07/2023 118/80 09/03/2023 128/84 08/03/2023 128/80 07/23/2023 111/63 06/26/2023 128/84 06/16/2023 122/76 05/30/2023 118/80 05/25/2023 137/86 05/15/2023 138/85 05/04/2023 122/68 04/13/2023 118/84 01/05/2023 124/82 12/29/2022 120/63 documented as of this encounter (statuses as of 12/18/2023) [facility] History of Past illness Narrative* Problem Noted Date Diagnosed Date Resolved Date Chest pain 04/19/2021 12/04/2023 Essential hypertension, benign 04/19/2021 12/04/2023 Last Assessment & Plan: Assessment: controlled on rx Last 14 BP Last 14 Encounter BP Readings: Date: BP: 10/24/2023 126/82 09/07/2023 118/80 09/03/2023 128/84 08/03/2023 128/80 07/23/2023 111/63 06/26/2023 128/84 06/16/2023 122/76 05/30/2023 118/80 05/25/2023 137/86 05/15/2023 138/85 05/04/2023 122/68 04/13/2023 118/84 01/05/2023 124/82 12/29/2022 120/63 documented as of this encounter (statuses as of 12/25/2023) [facility] History of Past illness Narrative* Problem Noted Date Diagnosed Date Resolved Date Chest pain 04/19/2021 12/04/2023 Essential hypertension, benign 04/19/2021 12/04/2023 Last Assessment & Plan: Assessment: controlled on rx Last 14 BP Last 14 Encounter BP Readings: Date: BP: 10/24/2023 126/82 09/07/2023 118/80 09/03/2023 128/84 08/03/2023 128/80 07/23/2023 111/63 06/26/2023 128/84 06/16/2023 122/76 05/30/2023 118/80 05/25/2023 137/86 05/15/2023 138/85 05/04/2023 122/68 04/13/2023 118/84 01/05/2023 124/82 12/29/2022 120/63 documented as of this encounter (statuses as of 12/26/2023) [facility] History of Past illness Narrative* Problem Noted Date Diagnosed Date Resolved Date Chest pain 04/19/2021 12/04/2023 Essential hypertension, benign 04/19/2021 12/04/2023 Last Assessment & Plan: Assessment: controlled on rx Last 14 BP Last 14 Encounter BP Readings: Date: BP: 10/24/2023 126/82 09/07/2023 118/80 09/03/2023 128/84 08/03/2023 128/80 07/23/2023 111/63 06/26/2023 128/84 06/16/2023 122/76 05/30/2023 118/80 05/25/2023 137/86 05/15/2023 138/85 05/04/2023 122/68 04/13/2023 118/84 01/05/2023 124/82 12/29/2022 120/63 documented as of this encounter (statuses as of 01/02/2024) [facility] History of Past illness Narrative* Problem Noted Date Diagnosed Date Resolved Date Chest pain 04/19/2021 12/04/2023 Essential hypertension, benign 04/19/2021 12/04/2023 Last Assessment & Plan: Assessment: controlled on rx Last 14 BP Last 14 Encounter BP Readings: Date: BP: 10/24/2023 126/82 09/07/2023 118/80 09/03/2023 128/84 08/03/2023 128/80 07/23/2023 111/63 06/26/2023 128/84 06/16/2023 122/76 05/30/2023 118/80 05/25/2023 137/86 05/15/2023 138/85 05/04/2023 122/68 04/13/2023 118/84 01/05/2023 124/82 12/29/2022 120/63 documented as of this encounter (statuses as of 01/09/2024) [facility]2010 History of Past illness Narrative* Problem Noted Date Resolved Date Diarrhea 07/19/2010 08/14/2019 documented as of this encounter (statuses as of 12/30/2021) [facility] History of Past illness Narrative* Problem Noted Date Resolved Date Diarrhea 07/19/2010 08/14/2019 documented as of this encounter (statuses as of 01/01/2022) [facility] History of Past illness Narrative* Problem Noted Date Resolved Date Diarrhea 07/19/2010 08/14/2019 documented as of this encounter (statuses as of 01/30/2022) [facility] History of Past illness Narrative* Problem Noted Date Resolved Date Diarrhea 07/19/2010 08/14/2019 documented as of this encounter (statuses as of 02/28/2022) [facility] History of Past illness Narrative* Problem Noted Date Resolved Date Diarrhea 07/19/2010 08/14/2019 documented as of this encounter (statuses as of 03/30/2022) [facility] History of Past illness Narrative* Problem Noted Date Resolved Date Diarrhea 07/19/2010 08/14/2019 documented as of this encounter (statuses as of 03/30/2022) [facility] History of Past illness Narrative* Problem Noted Date Resolved Date Diarrhea 07/19/2010 08/14/2019 documented as of this encounter (statuses as of 04/11/2022) [facility] History of Past illness Narrative* Problem Noted Date Resolved Date Diarrhea 07/19/2010 08/14/2019 documented as of this encounter (statuses as of 04/19/2022) [facility] History of Past illness Narrative* Problem Noted Date Resolved Date Diarrhea 07/19/2010 08/14/2019 documented as of this encounter (statuses as of 04/21/2022) [facility] History of Past illness Narrative* Problem Noted Date Resolved Date Diarrhea 07/19/2010 08/14/2019 documented as of this encounter (statuses as of 04/25/2022) [facility] History of Past illness Narrative* Problem Noted Date Resolved Date Diarrhea 07/19/2010 08/14/2019 documented as of this encounter (statuses as of 05/31/2022) [facility] History of Past illness Narrative* Problem Noted Date Resolved Date Diarrhea 07/19/2010 08/14/2019 documented as of this encounter (statuses as of 06/12/2022) [facility] History of Past illness Narrative* Problem Noted Date Resolved Date Diarrhea 07/19/2010 08/14/2019 documented as of this encounter (statuses as of 06/14/2022) [facility] History of Past illness Narrative* Problem Noted Date Resolved Date Diarrhea 07/19/2010 08/14/2019 documented as of this encounter (statuses as of 06/16/2022) [facility] History of Past illness Narrative* Problem Noted Date Resolved Date Diarrhea 07/19/2010 08/14/2019 documented as of this encounter (statuses as of 07/13/2022) [facility] History of Past illness Narrative* Problem Noted Date Resolved Date Diarrhea 07/19/2010 08/14/2019 documented as of this encounter (statuses as of 08/11/2022) [facility] History of Past illness Narrative* Problem Noted Date Resolved Date Diarrhea 07/19/2010 08/14/2019 documented as of this encounter (statuses as of 08/18/2022) [facility] History of Past illness Narrative* Problem Noted Date Resolved Date Diarrhea 07/19/2010 08/14/2019 documented as of this encounter (statuses as of 09/08/2022) [facility] History of Past illness Narrative* Problem Noted Date Resolved Date Diarrhea 07/19/2010 08/14/2019 documented as of this encounter (statuses as of 09/28/2022) [facility] History of Past illness Narrative* Problem Noted Date Resolved Date Diarrhea 07/19/2010 08/14/2019 documented as of this encounter (statuses as of 09/29/2022) [facility] History of Past illness Narrative* Problem Noted Date Resolved Date Diarrhea 07/19/2010 08/14/2019 documented as of this encounter (statuses as of 10/06/2022) [facility] History of Past illness Narrative* Problem Noted Date Resolved Date Diarrhea 07/19/2010 08/14/2019 documented as of this encounter (statuses as of 10/17/2022) [facility] History of Past illness Narrative* Problem Noted Date Resolved Date Diarrhea 07/19/2010 08/14/2019 documented as of this encounter (statuses as of 10/25/2022) [facility] History of Past illness Narrative* Problem Noted Date Resolved Date Diarrhea 07/19/2010 08/14/2019 documented as of this encounter (statuses as of 11/22/2022) [facility] History of Past illness Narrative* Problem Noted Date Resolved Date Diarrhea 07/19/2010 08/14/2019 documented as of this encounter (statuses as of 12/01/2022) [facility] History of Past illness Narrative* Problem Noted Date Resolved Date Diarrhea 07/19/2010 08/14/2019 documented as of this encounter (statuses as of 12/05/2022) [facility] History of Past illness Narrative* Problem Noted Date Resolved Date Diarrhea 07/19/2010 08/14/2019 documented as of this encounter (statuses as of 12/06/2022) [facility] History of Past illness Narrative* Problem Noted Date Resolved Date Diarrhea 07/19/2010 08/14/2019 documented as of this encounter (statuses as of 12/18/2022) [facility] History of Past illness Narrative* Problem Noted Date Resolved Date Diarrhea 07/19/2010 08/14/2019 documented as of this encounter (statuses as of 01/04/2023) [facility] History of Past illness Narrative* Problem Noted Date Resolved Date Diarrhea 07/19/2010 08/14/2019 documented as of this encounter (statuses as of 01/04/2023) [facility] History of Past illness Narrative* Problem Noted Date Diagnosed Date Resolved Date Diarrhea 07/19/2010 08/14/2019 documented as of this encounter (statuses as of 04/01/2023) [facility] History of Past illness Narrative* Problem Noted Date Diagnosed Date Resolved Date Diarrhea 07/19/2010 08/14/2019 documented as of this encounter (statuses as of 05/04/2023) [facility] History of Past illness Narrative* Problem Noted Date Diagnosed Date Resolved Date Diarrhea 07/19/2010 08/14/2019 documented as of this encounter (statuses as of 05/18/2023) [facility] History of Past illness Narrative* Problem Noted Date Diagnosed Date Resolved Date Diarrhea 07/19/2010 08/14/2019 documented as of this encounter (statuses as of 05/21/2023) [address]26-2010 History of Past illness Narrative* Problem Noted Date Diagnosed Date Resolved Date Diarrhea 07/19/2010 08/14/2019 documented as of this encounter (statuses as of 05/21/2023) [facility] History of Past illness Narrative* Problem Noted Date Diagnosed Date Resolved Date Diarrhea 07/19/2010 08/14/2019 documented as of this encounter (statuses as of 05/22/2023) [facility] History of Past illness Narrative* Problem Noted Date Diagnosed Date Resolved Date Diarrhea 07/19/2010 08/14/2019 documented as of this encounter (statuses as of 05/30/2023) [facility] History of Past illness Narrative* Problem Noted Date Diagnosed Date Resolved Date Diarrhea 07/19/2010 08/14/2019 documented as of this encounter (statuses as of 06/25/2023) [facility] History of Past illness Narrative* Problem Noted Date Diagnosed Date Resolved Date Diarrhea 07/19/2010 08/14/2019 documented as of this encounter (statuses as of 07/05/2023) [facility] History of Past illness Narrative* Problem Noted Date Diagnosed Date Resolved Date Diarrhea 07/19/2010 08/14/2019 documented as of this encounter (statuses as of 07/10/2023) [facility] History of Past illness Narrative* Problem Noted Date Diagnosed Date Resolved Date Diarrhea 07/19/2010 08/14/2019 documented as of this encounter (statuses as of 07/11/2023) [facility] History of Past illness Narrative* Problem Noted Date Diagnosed Date Resolved Date Diarrhea 07/19/2010 08/14/2019 documented as of this encounter (statuses as of 07/14/2023) [facility] Diagnosis Viral illness- Primary Unspecified viral infection, in conditions classified elsewhere and of unspecified site Wheezing Cough Acute conjunctivitis of right eye, unspecified acute conjunctivitis type [facility]* Diagnosis Uncomplicated asthma, unspecified asthma severity, unspecified whether persistent- Primary Encounter for immunization Need for other specified prophylactic vaccination against single bacterial disease Allergic rhinitis, unspecified seasonality, unspecified trigger [facility] Diagnosis Moderate persistent asthma without complication Unspecified asthma [facility] Diagnosis Moderate persistent asthma with acute exacerbation- Primary Moderate persistent asthma without complication Unspecified asthma Allergic rhinitis, unspecified seasonality, unspecified trigger Post-nasal drip Postnasal drip documented in this encounter [facility] note* Diagnosis Asthma, unspecified asthma severity, unspecified whether complicated, unspecified whether persistent- Primary documented in this encounter [facility] note* Diagnosis Asthma, unspecified asthma severity, unspecified whether complicated, unspecified whether persistent documented in this encounter [facility] note* Diagnosis Asthma, unspecified asthma severity, unspecified whether complicated, unspecified whether persistent documented in this encounter [facility] note* Diagnosis Severe persistent asthma without complication- Primary Seasonal allergic rhinitis due to pollen [id number] adverse effect of medication, initial encounter documented in this encounter [facility] note* Diagnosis Allergic rhinitis, unspecified seasonality, unspecified trigger Post-nasal drip Postnasal drip [facility]* Diagnosis Severe persistent asthma without complication- Primary Seasonal allergic rhinitis due to pollen Chronic rhinitis [facility]* Diagnosis Severe persistent asthma without complication- Primary documented in this encounter [facility] note* Diagnosis Annual physical exam- Primary Routine general medical examination at a health care facility Severe persistent asthma without complication Muscle cramping Cramp of limb Need for influenza vaccination Need for prophylactic vaccination and inoculation against influenza Encounter for immunization Need for other specified prophylactic vaccination against single bacterial disease documented in this encounter [facility] note* Diagnosis Severe persistent asthma, unspecified whether complicated- Primary Class 1 obesity due to excess calories with serious comorbidity and body mass index (BMI) of 34.0 to 34.9 in adult documented in this encounter [facility] note* Diagnosis Severe persistent asthma without complication- Primary [facility] Diagnosis Allergic rhinitis, unspecified seasonality, unspecified trigger Post-nasal drip Postnasal drip [facility]* Diagnosis Severe persistent asthma without complication- Primary Chronic rhinitis Seasonal allergic rhinitis due to pollen [facility] Diagnosis Severe persistent asthma without complication- Primary documented in this encounter [facility] note* Diagnosis Asthma, unspecified asthma severity, unspecified whether complicated, unspecified whether persistent- Primary Allergy, subsequent encounter [facility]* Diagnosis APPOINTMENT CANCELLED- Primary [facility]* Diagnosis Severe persistent asthma without complication- Primary Pain in joint, multiple sites Class 1 obesity due to excess calories without serious comorbidity with body mass index (BMI) of 33.0 to 33.9 in adult documented [facility] this encounter [facility]* Diagnosis Back strain, initial encounter- Primary documented in this encounter [facility] note* Diagnosis Loose stools- Primary Abnormal feces [facility]* Diagnosis Bilateral hip pain- Primary Pain in joint, pelvic region and thigh Back strain, initial encounter Class 1 obesity due to excess calories with body mass index (BMI) of 33.0 to 33.9 in adult, unspecified whether serious comorbidity present [facility]* Diagnosis Diarrhea, unspecified type- Primary Nausea Nausea alone Epigastric pain Abdominal pain, epigastric Rectal bleeding Hemorrhage of rectum and anus documented [facility]* Diagnosis Alternating constipation and diarrhea- Primary Other symptoms involving digestive system Rectal fullness Other symptoms involving digestive system Increased mucus in stool Nonspecific abnormal finding in stool contents Change in bowel habits Other symptoms involving digestive system Bleeding hemorrhoids Unspecified hemorrhoids with other complication [facility]* Diagnosis Diarrhea, unspecified type- Primary Nausea Nausea alone [facility]* Diagnosis Change in bowel habits- Primary Other symptoms involving digestive system Functional diarrhea Alternating constipation and diarrhea Other symptoms involving digestive system [facility]* Diagnosis Severe persistent asthma without complication- Primary Pain in joint, multiple sites documented in this encounter [facility] note* Diagnosis Bilateral hip pain Pain in joint, pelvic region and thigh 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 documented [facility] this encounter [facility] noteNo assessment information availableWOhioHealth [facility] Work Phone: Evaluation note* Diagnosis Acetabular labrum tear, unspecified laterality, subsequent encounter- Primary documented [facility] Diagnosis Tear of acetabular labrum, unspecified laterality, subsequent encounter- Primary documented in this encounter [facility] note* Diagnosis Tear of acetabular labrum, unspecified laterality, subsequent encounter- Primary [facility] Tear of acetabular labrum, unspecified laterality, subsequent encounter- Primary [facility] Diagnosis Tear of acetabular labrum, unspecified laterality, subsequent encounter- Primary Acetabular labrum tear, left, initial encounter [facility] Diagnosis Tear of right acetabular labrum, subsequent encounter- Primary Acetabular labrum tear, left, initial encounter [facility] Diagnosis Preoperative examination- Primary Preoperative examination, unspecified Severe persistent asthma without complication Irritable bowel syndrome with diarrhea Irritable bowel syndrome Acetabular labrum tear, left, initial encounter [facility] Diagnosis Tear of right acetabular labrum, subsequent encounter- Primary Acetabular labrum tear, left, initial encounter [facility] Diagnosis Tear of right acetabular labrum, subsequent encounter- Primary Acetabular labrum tear, left, initial encounter [facility] Diagnosis Acetabular labrum tear, left, initial encounter- Primary Acetabular labrum tear, left, initial encounter [facility] Diagnosis Tear of right acetabular labrum, subsequent encounter- Primary [facility] Diagnosis Tear of right acetabular labrum, subsequent encounter [facility]* Diagnosis Tear of right acetabular labrum, subsequent encounter [facility]* Diagnosis Tear of right acetabular labrum, subsequent encounter- Primary [facility] Diagnosis Tear of right acetabular labrum, subsequent encounter [facility]* Diagnosis Tear of right acetabular labrum, subsequent encounter Tear of acetabular labrum, unspecified laterality, subsequent encounter [facility] Diagnosis Tear of right acetabular labrum, subsequent encounter Tear of acetabular labrum, unspecified laterality, subsequent encounter [facility]* Diagnosis Tear of right acetabular labrum, subsequent encounter [facility]* Diagnosis Tear of right acetabular labrum, subsequent encounter Tear of acetabular labrum, unspecified laterality, subsequent encounter [facility]* Diagnosis Tear of right acetabular labrum, subsequent encounter Stress incontinence in female Female stress incontinence Tear of acetabular labrum, unspecified laterality, subsequent encounter documented [facility] encounter [facility] Diagnosis Acetabular labrum tear, left, initial encounter- Primary documented [facility] this encounter [facility]* Diagnosis Tear of right acetabular labrum, subsequent encounter Tear of acetabular labrum, unspecified laterality, subsequent encounter documented in this encounter [facility]* Diagnosis Tear of right acetabular labrum, subsequent encounter Tear of acetabular labrum, unspecified laterality, subsequent encounter [facility]* Diagnosis Tear of right acetabular labrum, subsequent encounter documented in this encounter [facility]* Diagnosis Disorder of central nervous system, unspecified- Primary Vasculopathy Unspecified circulatory system disorder documented [facility] this encounter [facility]* Diagnosis Tear of right acetabular labrum, subsequent encounter Tear of acetabular labrum, unspecified laterality, subsequent encounter [facility]* Diagnosis Tear of right acetabular labrum, subsequent encounter [facility]* Diagnosis Tear of right acetabular labrum, subsequent encounter- Primary documented [facility]* Diagnosis Stress incontinence in female- Primary Female stress incontinence Tear of right acetabular labrum, subsequent encounter Tear of acetabular labrum, unspecified laterality, subsequent encounter [facility]* Diagnosis Severe persistent asthma without complication [facility]* Diagnosis Pre-operative examination- Primary Preoperative examination, unspecified Essential hypertension, benign Severe persistent asthma without complication Nausea Nausea alone Tear of right acetabular labrum, subsequent encounter Preoperative examination- Primary Preoperative examination, unspecified Severe persistent asthma without complication Irritable bowel syndrome with diarrhea Irritable bowel syndrome documented [facility]* Diagnosis Pre-operative examination- Primary Preoperative examination, unspecified Essential hypertension, benign Severe persistent asthma without complication Nausea Nausea alone Preoperative examination- Primary Preoperative examination, unspecified Severe persistent asthma without complication Irritable bowel syndrome with diarrhea Irritable bowel syndrome Severe persistent asthma without complication- Primary Seasonal allergic rhinitis due to pollen Chronic rhinitis Need for influenza vaccination Need for prophylactic vaccination and inoculation against influenza documented [facility] this [facility]* Diagnosis Bilateral hip pain Pain in joint, pelvic region and thigh Pre-operative examination- Primary Preoperative examination, unspecified Essential hypertension, benign Severe persistent asthma without complication Nausea Nausea alone Preoperative examination- Primary Preoperative examination, unspecified Severe persistent asthma without complication Irritable bowel syndrome with diarrhea Irritable bowel syndrome documented in this encounter [facility]* Diagnosis Pre-operative examination- Primary Preoperative examination, unspecified Essential hypertension, benign Severe persistent asthma without complication Nausea Nausea alone Preoperative examination- Primary Preoperative examination, unspecified Severe persistent asthma without complication Irritable bowel syndrome with diarrhea Irritable bowel syndrome Encounter for gynecological examination (general) (routine) without abnormal findings- Primary Encounter for screening mammogram for breast cancer [facility]* Diagnosis Wheezing Viral illness Unspecified viral infection, in conditions classified elsewhere and of unspecified site Cough Preoperative examination- Primary Preoperative examination, unspecified Severe persistent asthma without complication Irritable bowel syndrome with diarrhea Irritable bowel syndrome documented in this encounter [facility] note* Diagnosis Cough Preoperative examination- Primary Preoperative examination, unspecified Severe persistent asthma without complication Irritable bowel syndrome with diarrhea Irritable bowel syndrome documented in this encounter [facility] note* Diagnosis Pre-operative examination- Primary Preoperative examination, unspecified Essential hypertension, benign Severe persistent asthma without complication Nausea Nausea alone Preoperative examination- Primary Preoperative examination, unspecified Severe persistent asthma without complication Irritable bowel syndrome with diarrhea Irritable bowel syndrome Severe persistent asthma without complication documented in this encounter [facility] note* Diagnosis Pre-operative examination- Primary Preoperative examination, unspecified Essential hypertension, benign Severe persistent asthma without complication Nausea Nausea alone Preoperative examination- Primary Preoperative examination, unspecified Severe persistent asthma without complication Irritable bowel syndrome with diarrhea Irritable bowel syndrome Severe persistent asthma without complication documented in this encounter [facility] note* Diagnosis Pre-operative examination- Primary Preoperative examination, unspecified Essential hypertension, benign Severe persistent asthma without complication Nausea Nausea alone Preoperative examination- Primary Preoperative examination, unspecified Severe persistent asthma without complication Irritable bowel syndrome with diarrhea Irritable bowel syndrome Severe persistent asthma without complication- Primary documented in this encounter [facility] note* Diagnosis Pre-operative examination- Primary Preoperative examination, unspecified Essential hypertension, benign Severe persistent asthma without complication Nausea Nausea alone Preoperative examination- Primary Preoperative examination, unspecified Severe persistent asthma without complication Irritable bowel syndrome with diarrhea Irritable bowel syndrome Encounter for screening mammogram for breast cancer documented in this encounter [facility] note* Diagnosis Pre-operative examination- Primary Preoperative examination, unspecified Essential hypertension, benign Severe persistent asthma without complication Nausea Nausea alone Preoperative examination- Primary Preoperative examination, unspecified Severe persistent asthma without complication Irritable bowel syndrome with diarrhea Irritable bowel syndrome Abnormal mammogram- Primary Abnormal mammogram, unspecified documented [facility]* Diagnosis Pre-operative examination- Primary Preoperative examination, unspecified Essential hypertension, benign Severe persistent asthma without complication Nausea Nausea alone Preoperative examination- Primary Preoperative examination, unspecified Severe persistent asthma without complication Irritable bowel syndrome with diarrhea Irritable bowel syndrome Enlarged thyroid Goiter, unspecified documented in this encounter [facility]* Diagnosis Pre-operative examination- Primary Preoperative examination, unspecified Essential hypertension, benign Severe persistent asthma without complication Nausea Nausea alone Preoperative examination- Primary Preoperative examination, unspecified Severe persistent asthma without complication Irritable bowel syndrome with diarrhea Irritable bowel syndrome TSH elevation- Primary Nonspecific abnormal results of thyroid function study documented in this encounter [facility] note* Diagnosis Pre-operative examination- Primary Preoperative examination, unspecified Essential hypertension, benign Severe persistent asthma without complication Nausea Nausea alone Preoperative examination- Primary Preoperative examination, unspecified Severe persistent asthma without complication Irritable bowel syndrome with diarrhea Irritable bowel syndrome TSH elevation- Primary Nonspecific abnormal results of thyroid function study Enlarged thyroid Goiter, unspecified FUO (fever of unknown origin) Fever, unspecified Other fatigue Hoarseness of voice Dysphonia Nasal polyp Unspecified nasal polyp [facility] Diagnosis Pre-operative examination- Primary Preoperative examination, unspecified Essential hypertension, benign Severe persistent asthma without complication Nausea Nausea alone Preoperative examination- Primary Preoperative examination, unspecified Severe persistent asthma without complication Irritable bowel syndrome with diarrhea Irritable bowel syndrome Abnormal mammogram Abnormal mammogram, unspecified documented in this encounter [facility] note* Diagnosis Pre-operative examination- Primary Preoperative examination, unspecified Essential hypertension, benign Severe persistent asthma without complication Nausea Nausea alone Preoperative examination- Primary Preoperative examination, unspecified Severe persistent asthma without complication Irritable bowel syndrome with diarrhea Irritable bowel syndrome Encounter for immunization- Primary Need for other specified prophylactic vaccination against single bacterial disease documented in this [facility]* Diagnosis Pre-operative examination- Primary Preoperative examination, unspecified Essential hypertension, benign Severe persistent asthma without complication Nausea Nausea alone Preoperative examination- Primary Preoperative examination, unspecified Severe persistent asthma without complication Irritable bowel syndrome with diarrhea Irritable bowel syndrome Disorder of central nervous system, unspecified Vasculopathy Unspecified circulatory system disorder documented in this encounter [facility] note* Diagnosis Pre-operative examination- Primary Preoperative examination, unspecified Essential hypertension, benign Severe persistent asthma without complication Nausea Nausea alone Preoperative examination- Primary Preoperative examination, unspecified Severe persistent asthma without complication Irritable bowel syndrome with diarrhea Irritable bowel syndrome TSH elevation Nonspecific abnormal results of thyroid function study documented in this encounter [facility] note* Diagnosis Pre-operative examination- Primary Preoperative examination, unspecified Essential hypertension, benign Severe persistent asthma without complication Nausea Nausea alone Preoperative examination- Primary Preoperative examination, unspecified Severe persistent asthma without complication Irritable bowel syndrome with diarrhea Irritable bowel syndrome Screening for malignant neoplasm of skin- Primary Screening for malignant neoplasm of the skin Family history of malignant neoplasm of skin Acquired melanocytic nevus Fibrous papule of face Benign neoplasm of skin of other and unspecified parts of face Rosacea Seborrheic keratosis Other seborrheic keratosis Congenital nevus Benign neoplasm of skin, site unspecified Striae atrophicae Extensive tattoos Other dyschromia Atypical nevus Benign neoplasm of skin, site unspecified documented in this encounter [facility] note* Diagnosis Pre-operative examination- Primary Preoperative examination, unspecified Essential hypertension, benign Severe persistent asthma without complication Nausea Nausea alone Preoperative examination- Primary Preoperative examination, unspecified Severe persistent asthma without complication Irritable bowel syndrome with diarrhea Irritable bowel syndrome Encounter for immunization- Primary Need for other specified prophylactic vaccination against single bacterial disease documented in this encounter [facility] note* Diagnosis Pre-operative examination- Primary Preoperative examination, unspecified Essential hypertension, benign Severe persistent asthma without complication Nausea Nausea alone Preoperative examination- Primary Preoperative examination, unspecified Severe persistent asthma without complication Irritable bowel syndrome with diarrhea Irritable bowel syndrome Pain in left hip- Primary Pain in joint, pelvic region and thigh Acetabular labrum tear, left, subsequent encounter Radiculopathy, lumbar region Thoracic or lumbosacral neuritis or radiculitis, unspecified Pain in left hip Pain in joint, pelvic region and thigh documented in this encounter [facility] note* Diagnosis Pre-operative examination- Primary Preoperative examination, unspecified Essential hypertension, benign Severe persistent asthma without complication Nausea Nausea alone Preoperative examination- Primary Preoperative examination, unspecified Severe persistent asthma without complication Irritable bowel syndrome with diarrhea Irritable bowel syndrome Pain in left hip Pain in joint, pelvic region and thigh documented in this encounter [facility] note* Diagnosis Pre-operative examination- Primary Preoperative examination, unspecified Essential hypertension, benign Severe persistent asthma without complication Nausea Nausea alone Preoperative examination- Primary Preoperative examination, unspecified Severe persistent asthma without complication Irritable bowel syndrome with diarrhea Irritable bowel syndrome Acute cough- Primary Acute cough documented in this encounter [facility] note* Diagnosis Pre-operative examination- Primary Preoperative examination, unspecified Essential hypertension, benign Severe persistent asthma without complication Nausea Nausea alone Preoperative examination- Primary Preoperative examination, unspecified Severe persistent asthma without complication Irritable bowel syndrome with diarrhea Irritable bowel syndrome Acute cough documented in this encounter [facility] note* Diagnosis Pre-operative examination- Primary Preoperative examination, unspecified Essential hypertension, benign Severe persistent asthma without complication Nausea Nausea alone Preoperative examination- Primary Preoperative examination, unspecified Severe persistent asthma without complication Irritable bowel syndrome with diarrhea Irritable bowel syndrome Asthma, unspecified asthma severity, unspecified whether complicated, unspecified whether persistent- Primary documented in this encounter [facility] note* Diagnosis Pre-operative examination- Primary Preoperative examination, unspecified Essential hypertension, benign Severe persistent asthma without complication Nausea Nausea alone Preoperative examination- Primary Preoperative examination, unspecified Severe persistent asthma without complication Irritable bowel syndrome with diarrhea Irritable bowel syndrome Acetabular labrum tear, left, subsequent encounter- Primary Radiculopathy, lumbar region Thoracic or lumbosacral neuritis or radiculitis, unspecified documented in this encounter [facility] note* Diagnosis Pre-operative examination- Primary Preoperative examination, unspecified Essential hypertension, benign Severe persistent asthma without complication Nausea Nausea alone Preoperative examination- Primary Preoperative examination, unspecified Severe persistent asthma without complication Irritable bowel syndrome with diarrhea Irritable bowel syndrome Atypical nevus- Primary Benign neoplasm of skin, site unspecified documented in this encounter [facility] note* Diagnosis Pre-operative examination- Primary Preoperative examination, unspecified Essential hypertension, benign Severe persistent asthma without complication Nausea Nausea alone Preoperative examination- Primary Preoperative examination, unspecified Severe persistent asthma without complication Irritable bowel syndrome with diarrhea Irritable bowel syndrome Acetabular labrum tear, left, subsequent encounter- Primary Radiculopathy, lumbar region Thoracic or lumbosacral neuritis or radiculitis, unspecified Pain in left hip Pain in joint, pelvic region and thigh documented in this encounter [facility] note* Diagnosis Pre-operative examination- Primary Preoperative examination, unspecified Essential hypertension, benign Severe persistent asthma without complication Nausea Nausea alone Preoperative examination- Primary Preoperative examination, unspecified Severe persistent asthma without complication Irritable bowel syndrome with diarrhea Irritable bowel syndrome Acetabular labrum tear, left, subsequent encounter- Primary Radiculopathy, lumbar region Thoracic or lumbosacral neuritis or radiculitis, unspecified documented in this encounter [facility] note* Diagnosis Pre-operative examination- Primary Preoperative examination, unspecified Essential hypertension, benign Severe persistent asthma without complication Nausea Nausea alone Preoperative examination- Primary Preoperative examination, unspecified Severe persistent asthma without complication Irritable bowel syndrome with diarrhea Irritable bowel syndrome Acetabular labrum tear, left, subsequent encounter Pain in left hip Pain in joint, pelvic region and thigh documented in this encounter [facility] note* Diagnosis Pre-operative examination- Primary Preoperative examination, unspecified Essential hypertension, benign Severe persistent asthma without complication Nausea Nausea alone Preoperative examination- Primary Preoperative examination, unspecified Severe persistent asthma without complication Irritable bowel syndrome with diarrhea Irritable bowel syndrome Acetabular labrum tear, left, subsequent encounter- Primary Radiculopathy, lumbar region Thoracic or lumbosacral neuritis or radiculitis, unspecified documented in this encounter [facility] note* Diagnosis Pre-operative examination- Primary Preoperative examination, unspecified Essential hypertension, benign Severe persistent asthma without complication Nausea Nausea alone Preoperative examination- Primary Preoperative examination, unspecified Severe persistent asthma without complication Irritable bowel syndrome with diarrhea Irritable bowel syndrome Acetabular labrum tear, left, subsequent encounter- Primary Radiculopathy, lumbar region Thoracic or lumbosacral neuritis or radiculitis, unspecified documented in this encounter [facility] note* Diagnosis Pre-operative examination- Primary Preoperative examination, unspecified Essential hypertension, benign Severe persistent asthma without complication (HCC) Nausea Nausea alone Preoperative examination- Primary Preoperative examination, unspecified Severe persistent asthma without complication (HCC) Irritable bowel syndrome with diarrhea Irritable bowel syndrome Irregular periods/menstrual cycles- Primary Irregular menstrual cycle History of uterine fibroid Personal history of other genital system and obstetric disorders Menorrhagia with irregular cycle Excessive or frequent menstruation Dyspareunia in female documented in this encounter [facility] note* Diagnosis Pre-operative examination- Primary Preoperative examination, unspecified Essential hypertension, benign Severe persistent asthma without complication (HCC) Nausea Nausea alone Preoperative examination- Primary Preoperative examination, unspecified Severe persistent asthma without complication (HCC) Irritable bowel syndrome with diarrhea Irritable bowel syndrome Severe persistent asthma without complication (HCC)- Primary Multiple allergies Other allergy, other than to medicinal agents documented in this encounter [facility] note* Diagnosis Pre-operative examination- Primary Preoperative examination, unspecified Essential hypertension, benign Severe persistent asthma without complication (HCC) Nausea Nausea alone Preoperative examination- Primary Preoperative examination, unspecified Severe persistent asthma without complication (HCC) Irritable bowel syndrome with diarrhea Irritable bowel syndrome Irregular periods/menstrual cycles Irregular menstrual cycle documented in this encounter [facility] note* Diagnosis Pre-operative examination- Primary Preoperative examination, unspecified Essential hypertension, benign Severe persistent asthma without complication (HCC) Nausea Nausea alone Preoperative examination- Primary Preoperative examination, unspecified Severe persistent asthma without complication (HCC) Irritable bowel syndrome with diarrhea Irritable bowel syndrome Uterine leiomyoma, unspecified location- Primary Hemorrhagic ovarian cyst Other and unspecified ovarian cyst Adenomyosis Endometriosis of uterus documented in this encounter [facility] note* Diagnosis Pre-operative examination- Primary Preoperative examination, unspecified Essential hypertension, benign Severe persistent asthma without complication (HCC) Nausea Nausea alone Preoperative examination- Primary Preoperative examination, unspecified Severe persistent asthma without complication (HCC) Irritable bowel syndrome with diarrhea Irritable bowel syndrome Irregular periods- Primary Irregular menstrual cycle Excessive bleeding in premenopausal period Premenopausal menorrhagia Adenomyosis Endometriosis of uterus Uterine leiomyoma, unspecified location documented in this encounter [facility] note* Diagnosis Pre-operative examination- Primary Preoperative examination, unspecified Essential hypertension, benign Severe persistent asthma without complication (HCC) Nausea Nausea alone Preoperative examination- Primary Preoperative examination, unspecified Severe persistent asthma without complication (HCC) Irritable bowel syndrome with diarrhea Irritable bowel syndrome Irregular menstruation- Primary Irregular menstrual cycle Excessive bleeding in premenopausal period Premenopausal menorrhagia Adenomyosis Endometriosis of uterus Uterine leiomyoma, unspecified location documented in this encounter [facility] note* Diagnosis Pre-operative examination- Primary Preoperative examination, unspecified Essential hypertension, benign Severe persistent asthma without complication (HCC) Nausea Nausea alone Preoperative examination- Primary Preoperative examination, unspecified Severe persistent asthma without complication (HCC) Irritable bowel syndrome with diarrhea Irritable bowel syndrome Menorrhagia with irregular cycle- Primary Excessive or frequent menstruation Pelvic pain in female Unspecified symptom associated with female genital organs Adenomyosis Endometriosis of uterus Polyp of corpus uteri Intramural and submucous leiomyoma of uterus [facility] Diagnosis Pre-operative examination- Primary Preoperative examination, unspecified Essential hypertension, benign Severe persistent asthma without complication (HCC) Nausea Nausea alone Preoperative examination- Primary Preoperative examination, unspecified Severe persistent asthma without complication (HCC) Irritable bowel syndrome with diarrhea Irritable bowel syndrome Encounter for immunization- Primary Need for other specified prophylactic vaccination against single bacterial disease documented in this encounter [facility] note* Diagnosis Pre-operative examination- Primary Preoperative examination, unspecified Essential hypertension, benign Severe persistent asthma without complication (HCC) Nausea Nausea alone Preoperative examination- Primary Preoperative examination, unspecified Severe persistent asthma without complication (HCC) Irritable bowel syndrome with diarrhea Irritable bowel syndrome Visit for pre-operative examination- Primary Preoperative examination, unspecified Menorrhagia with irregular cycle Excessive or frequent menstruation Pelvic pain in female Unspecified symptom associated with female genital organs Adenomyosis Endometriosis of uterus Polyp of corpus uteri Intramural and submucous leiomyoma of uterus documented in this encounter [facility] for referral (narrative)* Outpatient Procedure (Routine) - Closed Specialty Diagnoses / Procedures Referred By Juan Miguel valdovinos Referred To Contact [facility] Diagnoses Moderate persistent asthma without complication Procedures NITRIC OXIDE, EXHALED NITRIC OXIDE GAS DETERMINATION Bessie Pleitez PA-C [address] [address] [facility] [place] [address] [place], [place] [id number] Referral ID Status Reason Start Date Expiration Date V isits Requested Visits Authorized [id number] Closed Auto-Generate d Referral 03/30/2022 04/29/[address] [facility] for referral (narrative)* Outpatient Procedure (Routine) - Pending Review Specialty Diagnoses / Procedures Referred By Juan Miguel valdovinos Referred To Contact [facility] Diagnoses Asthma, unspecified asthma severity, unspecified whether complicated, unspecified whether persistent Procedures NITRIC OXIDE, EXHALED NITRIC OXIDE GAS DETERMINATION Sam Hankins MD [address] [facility] [address] [place] [address] [place] [id number] Referral ID Status Reason Start Date Expiration Date Visits Requested Visits Authorized [id number] Pending Review Auto-Generat ed Referral 04/11/2022 05/11/2023 1 1 * Outpatient Procedure (Routine) - Pending Review Specialty Diagnoses / Procedures Referred By Contac t Referred To Contact [facility] Diagnoses Asthma, unspecified asthma severity, unspecified whether complicated, unspecified whether persistent Procedures SPIROMETRY - BASELINE AND POST DILATOR BRNCDILAT RSPSE SPMTRY PRE&POST-BRNCDILAT ADMSam Austin MD [address] [address] [address] Referral ID Status Reason Start Date Expiration Date Visits Requested Visits Authorized [id number] Pending Review Auto-Generat ed Referral 04/11/2022 05/11/[address] [facility] for referral (narrative)* Outpatient Procedure (Routine) - Authorized Specialty Diagnoses / Procedures Referred By Contac t Referred To Contact [facility] Diagnoses Severe persistent asthma without complication Procedures SPIROMETRY - BASELINE AND POST DILATOR BRNCDILAT RSPSE SPMTRY PRE&POST-BRNCDILAT ADMSam Austin MD [address] [address] Referral ID Status Reason Start Date Expiration Date Visits Requested Visits Authorized [id number] Authorized Auto-Generat ed Referral 01/05/2023 10/06/[address] [facility] for referral (narrative)* Diagnostic Procedure Only (Routine) - Closed Specialty Diagnoses / Procedures Referred By Contac t Referred To Contact XR IMAGING Diagnoses Bilateral hip pain Procedures XR HIP BILATERAL 5V PEL/AP/LAT EACH HIP RADEX HIPS BILATERAL WITH PELVIS MINIMUM 5 VIEWS Diane Bazzi MD [address] [place] [address] Xr Imaging [id number] Referral ID Status Reason Start Date Expiration Date V isits Requested Visits Authorized [id number] Closed Auto-Generate d Referral 05/25/2023 09/23/[address] [facility] for referral (narrative)* Outpatient Procedure (Routine) - Authorized Specialty Diagnoses / Procedures [facility] Diagnoses Diarrhea, unspecified type Nausea Epigastric pain Rectal bleeding Procedures COLONOSCOPY DIAGNOSTIC COLONOSCOPY FLX DX W/COLLJ SPEC WHEN PFRMD Ben Leblanc MD [address] [place] [address] [facility] [place] [address] Referral ID Status Reason Start Date Expiration Date Visits Requested Visits Authorized [id number] Authorized Auto-Generat ed Referral 06/26/2023 06/26/2024 1 1 * Outpatient Procedure (Routine) - Authorized Specialty Diagnoses / Procedures Referred By Juan Miguel t Referred To Contact [facility] Diagnoses Diarrhea, unspecified type Nausea Epigastric pain Rectal bleeding Procedures EGD DIAGNOSTIC ESOPHAGOGASTRODUODENOSC OPY TRANSORAL DIAGNOSTIC Ben Leblanc MD [address] [facility] [place] [address] [facility] Disease [place] [id number] Referral ID Status Reason Start Date Expiration Date Visits Requested Visits Authorized [id number] Authorized Auto-Generat ed Referral 06/26/2023 06/26/[address] [facility] for referral (narrative)* Diagnostic Procedure Only (Routine) - Closed Specialty Diagnoses / Procedures Referred By Juan Miguel Referred To Contact MR IMAGING Diagnoses Bilateral hip pain 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 Procedures MRI HIP WO IVCON RIGHT MRI ANY JT LOWER EXTREM W/O CONTRAST MATRL Billateral MRI Rigth and left Diane Bazzi MD [address] [place] [address] [place] [address] Referral ID Status Reason Start Date Expiration Date V isits Requested Visits Authorized [id number] Closed Auto-Generate d Referral 08/09/2023 02/05/[address] [facility] for referral (narrative)* Diagnostic Procedure Only (Routine) - Closed Specialty Diagnoses / Procedures Referred By Adeelac t Referred To Contact XR IMAGING Diagnoses Tear of right acetabular labrum, subsequent encounter Procedures XR HIP BILATERAL 5V PEL/AP/LAT EACH HIP RADEX HIPS BILATERAL WITH PELVIS MINIMUM 5 VIEWS Debbie Mustafa PA-C [address] [id number] [place] [address] Referral ID Status Reason Start Date Expiration Date V isits Requested Visits Authorized [id number] Closed Auto-Generate d Referral 10/17/2023 11/15/2024 [address] [facility] for referral (narrative)* Diagnostic Procedure Only (Routine) - Closed Specialty Diagnoses / Procedures Referred By Juan Miguel t Referred To Contact XR IMAGING Diagnoses Bilateral hip pain Procedures XR HIP BILATERAL 5V PEL/AP/LAT EACH HIP RADEX HIPS BILATERAL WITH PELVIS MINIMUM 5 VIEWS Diane Bazzi MD [address] [place] [address] [place] [address] Referral ID Status Reason Start Date Expiration Date V isits Requested Visits Authorized [id number] Closed Auto-Generate d Referral 05/25/2023 09/23/[address] [facility] for referral (narrative)* Diagnostic Procedure Only (Routine) - New Request Specialty Diagnoses / Procedures Referred By Juan Miguel valdovinos Referred To Contact BR IMAGING Diagnoses Encounter for screening mammogram for breast cancer Procedures ANGEL SCREENING W KALI SCREENING DIGITAL BREAST TOMOSYNTHESIS BI SCREENING MAMMOGRAPHY BI 2-VIEW BREAST INC CAD Lelia Novak APRN.CNM [address] [place] [address] [facility] [address] [place] [address] Referral ID Status Reason Start Date Expiration Date Visits Requested Visits Authorized [id number] New Request Auto-Generat ed Referral 06/13/2024 07/13/[address] [facility] for referral (narrative)* Diagnostic Procedure Only (Routine) - New Request Specialty Diagnoses / Procedures Referred By Juan Miguel valdovinos Referred To Contact BR IMAGING Diagnoses Abnormal mammogram Procedures US BREAST LTD RIGHT US BREAST UNI REAL TIME WITH IMAGE LIMITED Lelia Novak APRN.CNChris [address] [place] [address] [facility] [address] [place] [address] Referral ID Status Reason Start Date Expiration Date Visits Requested Visits Authorized [id number] New Request Auto-Generat ed Referral 4 08/23/2025 1 1 * Diagnostic Procedure Only (Routine) - New Request Specialty Diagnoses / Procedures Referred By Juan Miguel valdovinos Referred To Contact BR IMAGING Diagnoses Abnormal mammogram Procedures ANGEL DIAGNOSTIC RIGHT DIAGNOSTIC MAMMOGRAPHY COMPUTER-AIDED DETCJ UNI Lelia Novak APRN.CNM [address] [place] [address] [facility] [address] [place] [address] Referral ID Status Reason Start Date Expiration Date Visits Requested Visits Authorized [id number] New Request Auto-Generat ed Referral 08/23/[address] [facility] for referral (narrative)* Diagnostic Procedure Only (Routine) - Closed Specialty Diagnoses / Procedures Referred By Contac t Referred To Contact BR IMAGING Diagnoses Abnormal mammogram Procedures US BREAST LTD RIGHT US BREAST UNI REAL TIME WITH IMAGE LIMITED Lelia Novak APRN.CNM [address] [place] [address] [facility] [address] [place] [address] Referral ID Status Reason Start Date Expiration Date V isits Requested Visits Authorized [id number] Closed Auto-Generate d Referral 07/28/2024 09/23/[address] [facility] for referral (narrative)* Diagnostic Procedure Only (Routine) - Closed Specialty Diagnoses / Procedures Referred By Contac t Referred To Contact XR IMAGING Diagnoses Pain in left hip Procedures XR HIP GENERAL 3V PELV/AP/LAT LEFT RADEX HIP UNILATERAL WITH PELVIS 2-3 VIEWS Debbie Mustafa PA-C [address] [place] [address] Xr Imaging [id number] Referral ID Status Reason Start Date Expiration Date V isits Requested Visits Authorized [id number] Closed Auto-Generate d Referral 09/19/2024 10/19/[address] 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 for visit Narrative* Diagnostic Procedure Only (Routine) - Closed Specialty Diagnoses / Procedures Referred By Contac t Referred To Contact XR IMAGING Diagnoses Bilateral hip pain Procedures XR HIP BILATERAL 5V PEL/AP/LAT EACH HIP RADEX HIPS BILATERAL WITH PELVIS MINIMUM 5 VIEWS Diane Bazzi MD [address] [place] [address] [place] [address] Referral ID Status Reason Start Date Expiration Date V isits Requested Visits Authorized [id number] Closed Auto-Generate d Referral 05/25/2023 09/23/[address] [facility] for visit Narrative* Diagnostic Procedure Only (Routine) - Closed Specialty Diagnoses / Procedures Referred By Contac t Referred To Contact BR IMAGING Diagnoses Encounter for screening mammogram for breast cancer Procedures ANGEL SCREENING W KALI SCREENING DIGITAL BREAST TOMOSYNTHESIS BI SCREENING MAMMOGRAPHY BI 2-VIEW BREAST INC CAD Lelia Novak APRN.[facility] [address] [place] [address] [facility] [address] [place] [address] Referral ID Status Reason Start Date Expiration Date V isits Requested Visits Authorized [id number] Closed Auto-Generate d Referral 06/13/2024 07/13/[address] [facility] for visit Narrative* Diagnostic Procedure Only (Routine) - Closed Specialty Diagnoses / Procedures Referred By Juan Miguel t Referred To Contact BR IMAGING Diagnoses Abnormal mammogram Procedures ANGEL DIAGNOSTIC RIGHT DIAGNOSTIC MAMMOGRAPHY COMPUTER-AIDED DETCJ UNI Lelia Novak APRN.[facility] [address] [place] [address] [facility] [address] [place] [address] Referral ID Status Reason Start Date Expiration Date V isits Requested Visits Authorized [id number] Closed Auto-Generate d Referral 07/28/2024 09/23/2024 1 1 [facility] Summary Purpose Family History No Family History Records FoundNo Family History Records FoundNo Family History Records FoundNo Family History Records FoundNo Family History Records Found Advance Directives No Advanced Directives Records FoundNo Advanced Directives Records FoundNo Advanced Directives Records FoundNo Advanced Directives Records FoundNo Advanced Directives Records [...] SUBCUTANEOUS, EVERY 4 WEEKS, First dose on Sun06/15/22 at 0700, Until Discontinued, Inject subcutaneously into the upper arm, thigh, or abdomen. Refrigerate Given 06/14/2022 3:04 PM EDT 210 mg Arm, Left Active Administered Medications - up to 3 most recent administrations Medication Order MAR Action Action Dose Rate Site tezepelumab-ekko 210 mg subcutaneous injection (TEZSPIRE) 210 mg, SUBCUTANEOUS, EVERY 4 WEEKS, First dose on Sun06/15/22 at 0700, Until Discontinued, Inject subcutaneously into the upper arm, thigh, or abdomen. Refrigerate Given 08/11/2022 9:45 AM EST 210 mg Arm, Left Given 07/14/2022 9:36 AM EDT 210 mg Ar m, Right Given 06/14/2022 3:04 PM EDT 210 mg Ar m, Left Active Administered Medications - up to 3 most recent administrations Medication Order MAR Action Action Date Dose Rate Site tezepelumab-ekko 210 mg subcutaneous injection (TEZSPIRE) 210 mg, SUBCUTANEOUS, EVERY 4 WEEKS, First dose on Sun06/15/22 at 0700, Until Discontinued, Inject subcutaneously into the upper arm, thigh, or abdomen. Refrigerate Given 09/06/2022 3:45 PM EST 210 mg Arm, Right Given 08/11/2022 9:45 AM EST 210 mg Ar m, Left Given 07/14/2022 9:36 AM EDT 210 mg Ar m, Right Active Administered Medications - up to 3 most recent administrations Medication Order [facility] Action Action Date Dose Rate Site tezepelumab-ekko 210 mg subcutaneous injection (TEZSPIRE) 210 mg, SUBCUTANEOUS, EVERY 4 WEEKS, First dose on Amparo 06/15/22 at 0700, Until Discontinued, Inject subcutaneously into the upper arm, thigh, or abdomen. Refrigerate Given 10/06/2022 8:11 AM EST 210 mg Arm, Left Given 09/06/2022 3:45 PM EST 210 mg Ar m, Right Given 08/11/2022 9:45 AM EST 210 mg Ar m, Left Active Administered Medications - up to 3 most recent administrations Medication Order [facility] Action Action Date Dose Rate Site tezepelumab-ekko 210 mg subcutaneous injection (TEZSPIRE) 210 mg, SUBCUTANEOUS, EVERY 4 WEEKS, First dose on Amparo 06/15/22 at 0700, Until Discontinued, Inject subcutaneously into the upper arm, thigh, or abdomen. Refrigerate Given 12/01/2022 10:58 AM EST 210 mg Arm, Left Given 11/03/2022 8:12 AM EST 210 mg Ar m, Right Given 10/06/2022 8:11 AM EST 210 mg Ar m, Left Inactive Administered Medications - up to 3 most recent administrations Medication Order [facility] Action Action Date Dose Rate Site keTORolac [...] Referral Specialty Diagnoses / Procedures Referred By Juan Miguel valdovinos Referred To Contact Allergy Diagnoses Uncomplicated asthma, unspecified asthma severity, unspecified whether persistent Allergic rhinitis, unspecified seasonality, unspecified trigger Procedures CONSULT TO ALLERGY/IMMUNOLOGY OFFICE/OUTPATIENT [facility] 60-74 MINUTES Dariusz Berry, TOWER ERECTOR HELPER.SIDE PULLER [address] [place] [address] Referral ID Status Reason Start Date Expiration Date Visits Requested Visits Authorized [id number] Pending Review PCP Requested Referral 02/28/2022 02/28/2023 1 1 Specialty Diagnoses / Procedures Referred By Contac t Referred To Contact Allergy Diagnoses Asthma, unspecified asthma severity, unspecified whether complicated, unspecified whether persistent Allergy, subsequent encounter Procedures CONSULT TO ALLERGY/IMMUNOLOGY OFFICE/OUTPATIENT [facility] 60-74 MINUTES True Gaytan MD [address] [place] [address] Sam Hankins MD [address] [place] [address] Referral ID Status Reason Start Date Expiration Date Visits Requested Visits Authorized [id number] Pending Review PCP Requested Referral 12/05/2022 12/05/2023 1 1 Specialty Diagnoses / Procedures Referred By Contac t Referred To Contact General Surgery Diagnoses Change in bowel habits Rectal fullness Increased mucus in stool Bleeding hemorrhoids Alternating constipation and diarrhea Procedures CONSULT TO GENERAL SURGERY Diane Bazzi MD [address] [place] [address] [facility] [address] [place] [address] Referral ID Status Reason Start Date Expiration Date Visits Requested Visits Authorized [id number] Ref Not Required PCP Requested Referral 06/16/2023 06/15/2024 1 1 Specialty Diagnoses / Procedures Referred By Contac t Referred To Contact Gastroenterology Diagnoses Change in bowel habits Functional diarrhea Alternating constipation and diarrhea Procedures CONSULT TO GASTROENTEROLOGY OFFICE/OUTPATIENT [facility] 60-74 MINUTES Alyssa Inman, TOWER ERECTOR HELPER.WAREHOUSE REPRESENTATIVE [address] [place] [address] Referral ID Status Reason Start Date Expiration Date Visits Requested Visits Authorized [id number] Pending Review PCP Requested Referral 08/06/2024 1 1 Specialty Diagnoses / Procedures Referred By Contact Referred To Contact [facility] Diagnoses Acetabular labrum tear, left, initial encounter Procedures CONSULT TO PHYSICAL THERAPY PHYSICAL THERAPY EVALUATION HIGH COMPLEX 45 MINS Debbie Mustafa PA-C [address] [place] [address] [facility] [address] [address] Referral ID Status Reason Start Date Expiration Date Visits Requested Visits Authorized [id number] Pending Review Auto-Generat ed Referral 12/14/2023 11/28/2024 1 1 Specialty Diagnoses / Procedures Referred By Contac t Referred To Contact MR IMAGING Diagnoses Disorder of central nervous system, unspecified Vasculopathy Procedures MRI BRAIN WO/W IVCON MRI BRAIN BRAIN STEM W/O W/CONTRAST MATERIAL Sydney José MD [address] [place] [address] Mr Imaging [id number] Referral ID Status Reason Start Date Expiration Date Visits Requested Visits Authorized [id number] Pending Review Auto-Generat ed Referral 02/28/2024 03/28/2025 1 1 Specialty Diagnoses / Procedures Referred By Contac t Referred To Contact Sam Hankins MD [address] [place] [address] Referral ID Status Reason Start Date Expiration Date Visits Re quested Visits Authorized [id number] Closed 1 1 Specialty Diagnoses / Procedures Referred By Contac t Referred To Contact Endocrinology Diagnoses TSH elevation Procedures CONSULT TO ENDOCRINOLOGY OFFICE/OUTPATIENT [facility] 60 MINUTES Dariusz Berry, KALEIGH.SIDE PULLER [address] [place] [address] Referral ID Status Reason Start Date Expiration Date Visits Requested Visits Authorized [id number] Authorized PCP Requested Referral 08/01/2024 08/01/2025 1 1 Specialty Diagnoses / Procedures Referred By Contac t Referred To Contact Ent - Otolaryngology Diagnoses Hoarseness of voice Nasal polyp Procedures CONSULT TO ENT OFFICE/OUTPATIENT [facility] 60 MINUTES Dariusz Berry, TOWER ERECTOR HELPER.SIDE PULLER [address] [place] [address] Referral ID Status Reason Start Date Expiration Date Visits Requested Visits Authorized [id number] Authorized PCP Requested Referral 08/04/2025 1 1 Referral ID Status Reason Start Date Expiration Date V isits Requested Visits Authorized [id number] Closed Auto-Generate d Referral 08/18/2024 09/23/2024 1 1 Specialty Diagnoses / Procedures Referred By Contact Referred To Contact [facility] Diagnoses Acetabular labrum tear, left, subsequent encounter Radiculopathy, lumbar region Procedures CONSULT TO PHYSICAL THERAPY PHYSICAL THERAPY EVALUATION HIGH COMPLEX 45 MINS Debbie Mustafa PA-C [address] [place] [address] [facility] [place] [address] [place] [address] Referral ID Status Reason Start Date Expiration Date Visits Requested Visits Authorized [id number] Pending Review Auto-Generat ed Referral 09/19/2025 1 1 Specialty Diagnoses / Procedures Referred By Contac t Referred To Contact XR IMAGING Diagnoses Pain in left hip Procedures XR HIP GENERAL 3V PELV/AP/LAT LEFT RADEX HIP UNILATERAL WITH PELVIS 2-3 VIEWS Debbie Mustafa PA-C [address] [place] [address] Xr Imaging [id number] Referral ID Status Reason Start Date Expiration Date V isits Requested Visits Authorized [id number] Closed Auto-Generate d Referral 09/19/2024 10/19/2025 1 1 Referral ID Status Reason Start Date Expiration Date Visits Requested Visits Authorized [id number] Pending Review Auto-Generat ed Referral 10/24/2024 10/24/2025 1 1 Chief Complaint and Reason for Visit Chief Complaint STOOL SAMPLE - DIARR HEA/WEIGHT LOSS Chief Complaint STOOL SAMPLE - DIARR HEA/WEIGHT LOSS R19.7 R63.4 Additional Source Comments INFORMATION SOURCE (unrecogn ized section and content) DATE CREATED AUTHOR 05/17/2021 [facility] ([place]) DATE CREATED AUTHOR AUTHOR'S ORGANIZ ATION 12/05/2023 [facility] DATE CREATED AUTHOR AUTHOR'S ORGANIZ ATION 12/14/2023 [facility] DATE CREATED AUTHOR AUTHOR'S ORGANIZ ATION 02/20/2025 [facility] DATE CREATED AUTHOR AUTHOR'S ORGANIZ ATION 03/04/2025 [facility] Source Comments (unrecognize d section and content) In the event this informatio n is protected by the Federal Confidentiality of Alcohol and Drug Abuse Patient Records regulations: The Federal rules restrict any use of the information to criminally investigate or prosecute any alcohol or drug abuse patient.[facility] the event this information is protected by the Federal Confidentiality of Alcohol and Drug Abuse Patient Records regulations: The Federal rules restrict any use of the information to criminally investigate or prosecute any alcohol or drug abuse patient.[facility] CenterIn the event this information is protected by the Federal Confidentiality of Alcohol and Drug Abuse Patient Records regulations: The Federal rules restrict any use of the information to criminally investigate or prosecute any alcohol or drug abuse patient.[facility] CenterIn the event this information is protected by the Federal Confidentiality of Alcohol and Drug Abuse Patient Records regulations: The Federal rules restrict any use of the information to criminally investigate or prosecute any alcohol or drug abuse patient.[facility] CenterIn the event this information is protected by the Federal Confidentiality of Alcohol and Drug Abuse Patient Records regulations: The Federal rules restrict any use of the information to criminally investigate or prosecute any alcohol or drug abuse patient.[facility] CenterIn the event this information is protected by the Federal Confidentiality of Alcohol and Drug Abuse Patient Records regulations: The Federal rules restrict any use of the information to criminally investigate or prosecute any alcohol or drug abuse patient.[facility] CenterIn the event this information is protected by the Federal Confidentiality of Alcohol and Drug Abuse Patient Records regulations: The Federal rules restrict any use of the information to criminally investigate or prosecute any alcohol or drug abuse patient.[facility] CenterIn the event this information is protected by the Federal Confidentiality of Alcohol and Drug Abuse Patient Records regulations: The Federal rules restrict any use of the information to criminally investigate or prosecute any alcohol or drug abuse patient.[facility] CenterIn the event this information is protected by the Federal Confidentiality of Alcohol and Drug Abuse Patient Records regulations: The Federal rules restrict any use of the information to criminally investigate or prosecute any alcohol or drug abuse patient.[facility] CenterIn the event this information is protected by the Federal Confidentiality of Alcohol and Drug Abuse Patient Records regulations: The Federal rules restrict any use of the information to criminally investigate or prosecute any alcohol or drug abuse patient.[facility] CenterIn the event this information is protected by the Federal Confidentiality of Alcohol and Drug Abuse Patient Records regulations: The Federal rules restrict any use of the information to criminally investigate or prosecute any alcohol or drug abuse patient.[facility] CenterIn the event this information is protected by the Federal Confidentiality of Alcohol and Drug Abuse Patient Records regulations: The Federal rules restrict any use of the information to criminally investigate or prosecute any alcohol or drug abuse patient.[facility] CenterIn the event this information is protected by the Federal Confidentiality of Alcohol and Drug Abuse Patient Records regulations: The Federal rules restrict any use of the information to criminally investigate or prosecute any alcohol or drug abuse patient.[facility] CenterIn the event this information is protected by the Federal Confidentiality of Alcohol and Drug Abuse Patient Records regulations: The Federal rules restrict any use of the information to criminally investigate or prosecute any alcohol or drug abuse patient.[facility] CenterIn the event this information is protected by the Federal Confidentiality of Alcohol and Drug Abuse Patient Records regulations: The Federal rules restrict any use of the information to criminally investigate or prosecute any alcohol or drug abuse patient.[facility] CenterIn the event this information is protected by the Federal Confidentiality of Alcohol and Drug Abuse Patient Records regulations: The Federal rules restrict any use of the information to criminally investigate or prosecute any alcohol or drug abuse patient.[facility] CenterIn the event this information is protected by the Federal Confidentiality of Alcohol and Drug Abuse Patient Records regulations: The Federal rules restrict any use of the information to criminally investigate or prosecute any alcohol or drug abuse patient.[facility] CenterIn the event this information is protected by the Federal Confidentiality of Alcohol and Drug Abuse Patient Records regulations: The Federal rules restrict any use of the information to criminally investigate or prosecute any alcohol or drug abuse patient.[facility] CenterIn the event this information is protected by the Federal Confidentiality of Alcohol and Drug Abuse Patient Records regulations: The Federal rules restrict any use of the information to criminally investigate or prosecute any alcohol or drug abuse patient.[facility] CenterIn the event this information is protected by the Federal Confidentiality of Alcohol and Drug Abuse Patient Records regulations: The Federal rules restrict any use of the information to criminally investigate or prosecute any alcohol or drug abuse patient.[facility] CenterIn the event this information is protected by the Federal Confidentiality of Alcohol and Drug Abuse Patient Records regulations: The Federal rules restrict any use of the information to criminally investigate or prosecute any alcohol or drug abuse patient.[facility] CenterIn the event this information is protected by the Federal Confidentiality of Alcohol and Drug Abuse Patient Records regulations: The Federal rules restrict any use of the information to criminally investigate or prosecute any alcohol or drug abuse patient.[facility] CenterIn the event this information is protected by the Federal Confidentiality of Alcohol and Drug Abuse Patient Records regulations: The Federal rules restrict any use of the information to criminally investigate or prosecute any alcohol or drug abuse patient.[facility] CenterIn the event this information is protected by the Federal Confidentiality of Alcohol and Drug Abuse Patient Records regulations: The Federal rules restrict any use of the information to criminally investigate or prosecute any alcohol or drug abuse patient.[facility]In the event this information is protected by the Federal Confidentiality of Alcohol and Drug Abuse Patient Records regulations: The Federal rules restrict any use of the information to criminally investigate or prosecute any alcohol or drug abuse patient.[facility] CenterIn the event this information is protected by the Federal Confidentiality of Alcohol and Drug Abuse Patient Records regulations: The Federal rules restrict any use of the information to criminally investigate or prosecute any alcohol or drug abuse patient.[facility] CenterIn the event this information is protected by the Federal Confidentiality of Alcohol and Drug Abuse Patient Records regulations: The Federal rules restrict any use of the information to criminally investigate or prosecute any alcohol or drug abuse patient.[facility]In the event this information is protected by the Federal Confidentiality of Alcohol and Drug Abuse Patient Records regulations: The Federal rules restrict any use of the information to criminally investigate or prosecute any alcohol or drug abuse patient.[facility] CenterIn the event this information is protected by the Federal Confidentiality of Alcohol and Drug Abuse Patient Records regulations: The Federal rules restrict any use of the information to criminally investigate or prosecute any alcohol or drug abuse patient.[facility] CenterIn the event this information is protected by the Federal Confidentiality of Alcohol and Drug Abuse Patient Records regulations: The Federal rules restrict any use of the information to criminally investigate or prosecute any alcohol or drug abuse patient.[facility] CenterIn the event this information is protected by the Federal Confidentiality of Alcohol and Drug Abuse Patient Records regulations: The Federal rules restrict any use of the information to criminally investigate or prosecute any alcohol or drug abuse patient.[facility] CenterIn the event this information is protected by the Federal Confidentiality of Alcohol and Drug Abuse Patient Records regulations: The Federal rules restrict any use of the information to criminally investigate or prosecute any alcohol or drug abuse patient.[facility] CenterIn the event this information is protected by the Federal Confidentiality of Alcohol and Drug Abuse Patient Records regulations: The Federal rules restrict any use of the information to criminally investigate or prosecute any alcohol or drug abuse patient.[facility] CenterIn the event this information is protected by the Federal Confidentiality of Alcohol and Drug Abuse Patient Records regulations: The Federal rules restrict any use of the information to criminally investigate or prosecute any alcohol or drug abuse patient.[facility]In the event this information is protected by the Federal Confidentiality of Alcohol and Drug Abuse Patient Records regulations: The Federal rules restrict any use of the information to criminally investigate or prosecute any alcohol or drug abuse patient.[facility] CenterIn the event this information is protected by the Federal Confidentiality of Alcohol and Drug Abuse Patient Records regulations: The Federal rules restrict any use of the information to criminally investigate or prosecute any alcohol or drug abuse patient.[facility]In the event this information is protected by the Federal Confidentiality of Alcohol and Drug Abuse Patient Records regulations: The Federal rules restrict any use of the information to criminally investigate or prosecute any alcohol or drug abuse patient.[facility]In the event this information is protected by the Federal Confidentiality of Alcohol and Drug Abuse Patient Records regulations: The Federal rules restrict any use of the information to criminally investigate or prosecute any alcohol or drug abuse patient.[facility]In the event this information is protected by the Federal Confidentiality of Alcohol and Drug Abuse Patient Records regulations: The Federal rules restrict any use of the information to criminally investigate or prosecute any alcohol or drug abuse patient.[facility]In the event this information is protected by the Federal Confidentiality of Alcohol and Drug Abuse Patient Records regulations: The Federal rules restrict any use of the information to criminally investigate or prosecute any alcohol or drug abuse patient.[facility] CenterIn the event this information is protected by the Federal Confidentiality of Alcohol and Drug Abuse Patient Records regulations: The Federal rules restrict any use of the information to criminally investigate or prosecute any alcohol or drug abuse patient.[facility]In the event this information is protected by the Federal Confidentiality of Alcohol and Drug Abuse Patient Records regulations: The Federal rules restrict any use of the information to criminally investigate or prosecute any alcohol or drug abuse patient.[facility] CenterIn the event this information is protected by the Federal Confidentiality of Alcohol and Drug Abuse Patient Records regulations: The Federal rules restrict any use of the information to criminally investigate or prosecute any alcohol or drug abuse patient.[facility]In the event this information is protected by the Federal Confidentiality of Alcohol and Drug Abuse Patient Records regulations: The Federal rules restrict any use of the information to criminally investigate or prosecute any alcohol or drug abuse patient.[facility]In the event this information is protected by the Federal Confidentiality of Alcohol and Drug Abuse Patient Records regulations: The Federal rules restrict any use of the information to criminally investigate or prosecute any alcohol or drug abuse patient.[facility]In the event this information is protected by the Federal Confidentiality of Alcohol and Drug Abuse Patient Records regulations: The Federal rules restrict any use of the information to criminally investigate or prosecute any alcohol or drug abuse patient.[facility]In the event this information is protected by the Federal Confidentiality of Alcohol and Drug Abuse Patient Records regulations: The Federal rules restrict any use of the information to criminally investigate or prosecute any alcohol or drug abuse patient.[facility] CenterIn the event this information is protected by the Federal Confidentiality of Alcohol and Drug Abuse Patient Records regulations: The Federal rules restrict any use of the information to criminally investigate or prosecute any alcohol or drug abuse patient.[facility] CenterIn the event this information is protected by the Federal Confidentiality of Alcohol and Drug Abuse Patient Records regulations: The Federal rules restrict any use of the information to criminally investigate or prosecute any alcohol or drug abuse patient.[facility] CenterIn the event this information is protected by the Federal Confidentiality of Alcohol and Drug Abuse Patient Records regulations: The Federal rules restrict any use of the information to criminally investigate or prosecute any alcohol or drug abuse patient.[facility] CenterIn the event this information is protected by the Federal Confidentiality of Alcohol and Drug Abuse Patient Records regulations: The Federal rules restrict any use of the information to criminally investigate or prosecute any alcohol or drug abuse patient.[facility]In the event this information is protected by the Federal Confidentiality of Alcohol and Drug Abuse Patient Records regulations: The Federal rules restrict any use of the information to criminally investigate or prosecute any alcohol or drug abuse patient.[facility]In the event this information is protected by the Federal Confidentiality of Alcohol and Drug Abuse Patient Records regulations: The Federal rules restrict any use of the information to criminally investigate or prosecute any alcohol or drug abuse patient.[facility] CenterIn the event this information is protected by the Federal Confidentiality of Alcohol and Drug Abuse Patient Records regulations: The Federal rules restrict any use of the information to criminally investigate or prosecute any alcohol or drug abuse patient.[facility]In the event this information is protected by the Federal Confidentiality of Alcohol and Drug Abuse Patient Records regulations: The Federal rules restrict any use of the information to criminally investigate or prosecute any alcohol or drug abuse patient.[facility]In the event this information is protected by the Federal Confidentiality of Alcohol and Drug Abuse Patient Records regulations: The Federal rules restrict any use of the information to criminally investigate or prosecute any alcohol or drug abuse patient.[facility]In the event this information is protected by the Federal Confidentiality of Alcohol and Drug Abuse Patient Records regulations: The Federal rules restrict any use of the information to criminally investigate or prosecute any alcohol or drug abuse patient.[facility]In the event this information is protected by the Federal Confidentiality of Alcohol and Drug Abuse Patient Records regulations: The Federal rules restrict any use of the information to criminally investigate or prosecute any alcohol or drug abuse patient.[facility]In the event this information is protected by the Federal Confidentiality of Alcohol and Drug Abuse Patient Records regulations: The Federal rules restrict any use of the information to criminally investigate or prosecute any alcohol or drug abuse patient.[facility]In the event this information is protected by the Federal Confidentiality of Alcohol and Drug Abuse Patient Records regulations: The Federal rules restrict any use of the information to criminally investigate or prosecute any alcohol or drug abuse patient.[facility]In the event this information is protected by the Federal Confidentiality of Alcohol and Drug Abuse Patient Records regulations: The Federal rules restrict any use of the information to criminally investigate or prosecute any alcohol or drug abuse patient.[facility]In the event this information is protected by the Federal Confidentiality of Alcohol and Drug Abuse Patient Records regulations: The Federal rules restrict any use of the information to criminally investigate or prosecute any alcohol or drug abuse patient.[facility]In the event this information is protected by the Federal Confidentiality of Alcohol and Drug Abuse Patient Records regulations: The Federal rules restrict any use of the information to criminally investigate or prosecute any alcohol or drug abuse patient.[facility]In the event this information is protected by the Federal Confidentiality of Alcohol and Drug Abuse Patient Records regulations: The Federal rules restrict any use of the information to criminally investigate or prosecute any alcohol or drug abuse patient.[facility]In the event this information is protected by the Federal Confidentiality of Alcohol and Drug Abuse Patient Records regulations: The Federal rules restrict any use of the information to criminally investigate or prosecute any alcohol or drug abuse patient.[facility]In the event this information is protected by the Federal Confidentiality of Alcohol and Drug Abuse Patient Records regulations: The Federal rules restrict any use of the information to criminally investigate or prosecute any alcohol or drug abuse patient.[facility]In the event this information is protected by the Federal Confidentiality of Alcohol and Drug Abuse Patient Records regulations: The Federal rules restrict any use of the information to criminally investigate or prosecute any alcohol or drug abuse patient.[facility]In the event this information is protected by the Federal Confidentiality of Alcohol and Drug Abuse Patient Records regulations: The Federal rules restrict any use of the information to criminally investigate or prosecute any alcohol or drug abuse patient.[facility]In the event this information is protected by the Federal Confidentiality of Alcohol and Drug Abuse Patient Records regulations: The Federal rules restrict any use of the information to criminally investigate or prosecute any alcohol or drug abuse patient.[facility]In the event this information is protected by the Federal Confidentiality of Alcohol and Drug Abuse Patient Records regulations: The Federal rules restrict any use of the information to criminally investigate or prosecute any alcohol or drug abuse patient.[facility]In the event this information is protected by the Federal Confidentiality of Alcohol and Drug Abuse Patient Records regulations: The Federal rules restrict any use of the information to criminally investigate or prosecute any alcohol or drug abuse patient.[facility]In the event this information is protected by the Federal Confidentiality of Alcohol and Drug Abuse Patient Records regulations: The Federal rules restrict any use of the information to criminally investigate or prosecute any alcohol or drug abuse patient.[facility]In the event this information is protected by the Federal Confidentiality of Alcohol and Drug Abuse Patient Records regulations: The Federal rules restrict any use of the information to criminally investigate or prosecute any alcohol or drug abuse patient.[facility]In the event this information is protected by the Federal Confidentiality of Alcohol and Drug Abuse Patient Records regulations: The Federal rules restrict any use of the information to criminally investigate or prosecute any alcohol or drug abuse patient.[facility]In the event this information is protected by the Federal Confidentiality of Alcohol and Drug Abuse Patient Records regulations: The Federal rules restrict any use of the information to criminally investigate or prosecute any alcohol or drug abuse patient.[facility]In the event this information is protected by the Federal Confidentiality of Alcohol and Drug Abuse Patient Records regulations: The Federal rules restrict any use of the information to criminally investigate or prosecute any alcohol or drug abuse patient.[facility]In the event this information is protected by the Federal Confidentiality of Alcohol and Drug Abuse Patient Records regulations: The Federal rules restrict any use of the information to criminally investigate or prosecute any alcohol or drug abuse patient.[facility]In the event this information is protected by the Federal Confidentiality of Alcohol and Drug Abuse Patient Records regulations: The Federal rules restrict any use of the information to criminally investigate or prosecute any alcohol or drug abuse patient.[facility]In the event this information is protected by the Federal Confidentiality of Alcohol and Drug Abuse Patient Records regulations: The Federal rules restrict any use of the information to criminally investigate or prosecute any alcohol or drug abuse patient.[facility]In the event this information is protected by the Federal Confidentiality of Alcohol and Drug Abuse Patient Records regulations: The Federal rules restrict any use of the information to criminally investigate or prosecute any alcohol or drug abuse patient.[facility]In the event this information is protected by the Federal Confidentiality of Alcohol and Drug Abuse Patient Records regulations: The Federal rules restrict any use of the information to criminally investigate or prosecute any alcohol or drug abuse patient.[facility]In the event this information is protected by the Federal Confidentiality of Alcohol and Drug Abuse Patient Records regulations: The Federal rules restrict any use of the information to criminally investigate or prosecute any alcohol or drug abuse patient.[facility]In the event this information is protected by the Federal Confidentiality of Alcohol and Drug Abuse Patient Records regulations: The Federal rules restrict any use of the information to criminally investigate or prosecute any alcohol or drug abuse patient.[facility]In the event this information is protected by the Federal Confidentiality of Alcohol and Drug Abuse Patient Records regulations: The Federal rules restrict any use of the information to criminally investigate or prosecute any alcohol or drug abuse patient.[facility]In the event this information is protected by the Federal Confidentiality of Alcohol and Drug Abuse Patient Records regulations: The Federal rules restrict any use of the information to criminally investigate or prosecute any alcohol or drug abuse patient.[facility]In the event this information is protected by the Federal Confidentiality of Alcohol and Drug Abuse Patient Records regulations: The Federal rules restrict any use of the information to criminally investigate or prosecute any alcohol or drug abuse patient.[facility]In the event this information is protected by the Federal Confidentiality of Alcohol and Drug Abuse Patient Records regulations: The Federal rules restrict any use of the information to criminally investigate or prosecute any alcohol or drug abuse patient.[facility]In the event this information is protected by the Federal Confidentiality of Alcohol and Drug Abuse Patient Records regulations: The Federal rules restrict any use of the information to criminally investigate or prosecute any alcohol or drug abuse patient.[facility]In the event this information is protected by the Federal Confidentiality of Alcohol and Drug Abuse Patient Records regulations: The Federal rules restrict any use of the information to criminally investigate or prosecute any alcohol or drug abuse patient.[facility]In the event this information is protected by the Federal Confidentiality of Alcohol and Drug Abuse Patient Records regulations: The Federal rules restrict any use of the information to criminally investigate or prosecute any alcohol or drug abuse patient.[facility]In the event this information is protected by the Federal Confidentiality of Alcohol and Drug Abuse Patient Records regulations: The Federal rules restrict any use of the information to criminally investigate or prosecute any alcohol or drug abuse patient.[facility]In the event this information is protected by the Federal Confidentiality of Alcohol and Drug Abuse Patient Records regulations: The Federal rules restrict any use of the information to criminally investigate or prosecute any alcohol or drug abuse patient.[facility]In the event this information is protected by the Federal Confidentiality of Alcohol and Drug Abuse Patient Records regulations: The Federal rules restrict any use of the information to criminally investigate or prosecute any alcohol or drug abuse patient.[facility]In the event this information is protected by the Federal Confidentiality of Alcohol and Drug Abuse Patient Records regulations: The Federal rules restrict any use of the information to criminally investigate or prosecute any alcohol or drug abuse patient.[facility]In the event this information is protected by the Federal Confidentiality of Alcohol and Drug Abuse Patient Records regulations: The Federal rules restrict any use of the information to criminally investigate or prosecute any alcohol or drug abuse patient.[facility]In the event this information is protected by the Federal Confidentiality of Alcohol and Drug Abuse Patient Records regulations: The Federal rules restrict any use of the information to criminally investigate or prosecute any alcohol or drug abuse patient.[facility]In the event this information is protected by the Federal Confidentiality of Alcohol and Drug Abuse Patient Records regulations: The Federal rules restrict any use of the information to criminally investigate or prosecute any alcohol or drug abuse patient.[facility]In the event this information is protected by the Federal Confidentiality of Alcohol and Drug Abuse Patient Records regulations: The Federal rules restrict any use of the information to criminally investigate or prosecute any alcohol or drug abuse patient.[facility]In the event this information is protected by the Federal Confidentiality of Alcohol and Drug Abuse Patient Records regulations: The Federal rules restrict any use of the information to criminally investigate or prosecute any alcohol or drug abuse patient.[facility]In the event this information is protected by the Federal Confidentiality of Alcohol and Drug Abuse Patient Records regulations: The Federal rules restrict any use of the information to criminally investigate or prosecute any alcohol or drug abuse patient.[facility]In the event this information is protected by the Federal Confidentiality of Alcohol and Drug Abuse Patient Records regulations: The Federal rules restrict any use of the information to criminally investigate or prosecute any alcohol or drug abuse patient.[facility]In the event this information is protected by the Federal Confidentiality of Alcohol and Drug Abuse Patient Records regulations: The Federal rules restrict any use of the information to criminally investigate or prosecute any alcohol or drug abuse patient.[facility]In the event this information is protected by the Federal Confidentiality of Alcohol and Drug Abuse Patient Records regulations: The Federal rules restrict any use of the information to criminally investigate or prosecute any alcohol or drug abuse patient.[facility] CenterIn the event this information is protected by the Federal Confidentiality of Alcohol and Drug Abuse Patient Records regulations: The Federal rules restrict any use of the information to criminally investigate or prosecute any alcohol or drug abuse patient.[facility] CenterIn the event this information is protected by the Federal Confidentiality of Alcohol and Drug Abuse Patient Records regulations: The Federal rules restrict any use of the information to criminally investigate or prosecute any alcohol or drug abuse patient.[facility] CenterIn the event this information is protected by the Federal Confidentiality of Alcohol and Drug Abuse Patient Records regulations: The Federal rules restrict any use of the information to criminally investigate or prosecute any alcohol or drug abuse patient.[facility] CenterIn the event this information is protected by the Federal Confidentiality of Alcohol and Drug Abuse Patient Records regulations: The Federal rules restrict any use of the information to criminally investigate or prosecute any alcohol or drug abuse patient.[facility] CenterIn the event this information is protected by the Federal Confidentiality of Alcohol and Drug Abuse Patient Records regulations: The Federal rules restrict any use of the information to criminally investigate or prosecute any alcohol or drug abuse patient.[facility] CenterIn the event this information is protected by the Federal Confidentiality of Alcohol and Drug Abuse Patient Records regulations: The Federal rules restrict any use of the information to criminally investigate or prosecute any alcohol or drug abuse patient.[facility] CenterIn the event this information is protected by the Federal Confidentiality of Alcohol and Drug Abuse Patient Records regulations: The Federal rules restrict any use of the information to criminally investigate or prosecute any alcohol or drug abuse patient.[facility] CenterIn the event this information is protected by the Federal Confidentiality of Alcohol and Drug Abuse Patient Records regulations: The Federal rules restrict any use of the information to criminally investigate or prosecute any alcohol or drug abuse patient.[facility] CenterIn the event this information is protected by the Federal Confidentiality of Alcohol and Drug Abuse Patient Records regulations: The Federal rules restrict any use of the information to criminally investigate or prosecute any alcohol or drug abuse patient.[facility] CenterIn the event this information is protected by the Federal Confidentiality of Alcohol and Drug Abuse Patient Records regulations: The Federal rules restrict any use of the information to criminally investigate or prosecute any alcohol or drug abuse patient.[facility] CenterIn the event this information is protected by the Federal Confidentiality of Alcohol and Drug Abuse Patient Records regulations: The Federal rules restrict any use of the information to criminally investigate or prosecute any alcohol or drug abuse patient.[facility] CenterIn the event this information is protected by the Federal Confidentiality of Alcohol and Drug Abuse Patient Records regulations: The Federal rules restrict any use of the information to criminally investigate or prosecute any alcohol or drug abuse patient.[facility] CenterIn the event this information is protected by the Federal Confidentiality of Alcohol and Drug Abuse Patient Records regulations: The Federal rules restrict any use of the information to criminally investigate or prosecute any alcohol or drug abuse patient.[facility] CenterIn the event this information is protected by the Federal Confidentiality of Alcohol and Drug Abuse Patient Records regulations: The Federal rules restrict any use of the information to criminally investigate or prosecute any alcohol or drug abuse patient.[facility] CenterIn the event this information is protected by the Federal Confidentiality of Alcohol and Drug Abuse Patient Records regulations: The Federal rules restrict any use of the information to criminally investigate or prosecute any alcohol or drug abuse patient.[facility] CenterIn the event this information is protected by the Federal Confidentiality of Alcohol and Drug Abuse Patient Records regulations: The Federal rules restrict any use of the information to criminally investigate or prosecute any alcohol or drug abuse patient.[facility] CenterIn the event this information is protected by the Federal Confidentiality of Alcohol and Drug Abuse Patient Records regulations: The Federal rules restrict any use of the information to criminally investigate or prosecute any alcohol or drug abuse patient.[facility] CenterIn the event this information is protected by the Federal Confidentiality of Alcohol and Drug Abuse Patient Records regulations: The Federal rules restrict any use of the information to criminally investigate or prosecute any alcohol or drug abuse patient.[facility] CenterIn the event this information is protected by the Federal Confidentiality of Alcohol and Drug Abuse Patient Records regulations: The Federal rules restrict any use of the information to criminally investigate or prosecute any alcohol or drug abuse patient.[facility] CenterIn the event this information is protected by the Federal Confidentiality of Alcohol and Drug Abuse Patient Records regulations: The Federal rules restrict any use of the information to criminally investigate or prosecute any alcohol or drug abuse patient.[facility] CenterIn the event this information is protected by the Federal Confidentiality of Alcohol and Drug Abuse Patient Records regulations: The Federal rules restrict any use of the information to criminally investigate or prosecute any alcohol or drug abuse patient.[facility] CenterIn the event this information is protected by the Federal Confidentiality of Alcohol and Drug Abuse Patient Records regulations: The Federal rules restrict any use of the information to criminally investigate or prosecute any alcohol or drug abuse patient.[facility] CenterIn the event this information is protected by the Federal Confidentiality of Alcohol and Drug Abuse Patient Records regulations: The Federal rules restrict any use of the information to criminally investigate or prosecute any alcohol or drug abuse patient.[facility] CenterIn the event this information is protected by the Federal Confidentiality of Alcohol and Drug Abuse Patient Records regulations: The Federal rules restrict any use of the information to criminally investigate or prosecute any alcohol or drug abuse patient.[facility] CenterIn the event this information is protected by the Federal Confidentiality of Alcohol and Drug Abuse Patient Records regulations: The Federal rules restrict any use of the information to criminally investigate or prosecute any alcohol or drug abuse patient.[facility] CenterIn the event this information is protected by the Federal Confidentiality of Alcohol and Drug Abuse Patient Records regulations: The Federal rules restrict any use of the information to criminally investigate or prosecute any alcohol or drug abuse patient.[facility] CenterIn the event this information is protected by the Federal Confidentiality of Alcohol and Drug Abuse Patient Records regulations: The Federal rules restrict any use of the information to criminally investigate or prosecute any alcohol or drug abuse patient.[facility] CenterIn the event this information is protected by the Federal Confidentiality of Alcohol and Drug Abuse Patient Records regulations: The Federal rules restrict any use of the information to criminally investigate or prosecute any alcohol or drug abuse patient.[facility] CenterIn the event this information is protected by the Federal Confidentiality of Alcohol and Drug Abuse Patient Records regulations: The Federal rules restrict any use of the information to criminally investigate or prosecute any alcohol or drug abuse patient.[facility] CenterIn the event this information is protected by the Federal Confidentiality of Alcohol and Drug Abuse Patient Records regulations: The Federal rules restrict any use of the information to criminally investigate or prosecute any alcohol or drug abuse patient.[facility] CenterIn the event this information is protected by the Federal Confidentiality of Alcohol and Drug Abuse Patient Records regulations: The Federal rules restrict any use of the information to criminally investigate or prosecute any alcohol or drug abuse patient.[facility] ClinicIn the event this information is protected by the Federal Confidentiality of Alcohol and Drug Abuse Patient Records regulations: The Federal rules restrict any use of the information to criminally investigate or prosecute any alcohol or drug abuse patient.[facility] CenterIn the event this information is protected by the Federal Confidentiality of Alcohol and Drug Abuse Patient Records regulations: The Federal rules restrict any use of the information to criminally investigate or prosecute any alcohol or drug abuse patient.[facility] CenterIn the event this information is protected by the Federal Confidentiality of Alcohol and Drug Abuse Patient Records regulations: The Federal rules restrict any use of the information to criminally investigate or prosecute any alcohol or drug abuse patient.[facility] CenterIn the event this information is protected by the Federal Confidentiality of Alcohol and Drug Abuse Patient Records regulations: The Federal rules restrict any use of the information to criminally investigate or prosecute any alcohol or drug abuse patient.[facility] CenterIn the event this information is protected by the Federal Confidentiality of Alcohol and Drug Abuse Patient Records regulations: The Federal rules restrict any use of the information to criminally investigate or prosecute any alcohol or drug abuse patient.[facility] CenterIn the event this information is protected by the Federal Confidentiality of Alcohol and Drug Abuse Patient Records regulations: The Federal rules restrict any use of the information to criminally investigate or prosecute any alcohol or drug abuse patient.[facility] CenterIn the event this information is protected by the Federal Confidentiality of Alcohol and Drug Abuse Patient Records regulations: The Federal rules restrict any use of the information to criminally investigate or prosecute any alcohol or drug abuse patient.[facility] CenterIn the event this information is protected by the Federal Confidentiality of Alcohol and Drug Abuse Patient Records regulations: The Federal rules restrict any use of the information to criminally investigate or prosecute any alcohol or drug abuse patient.[facility] CenterIn the event this information is protected by the Federal Confidentiality of Alcohol and Drug Abuse Patient Records regulations: The Federal rules restrict any use of the information to criminally investigate or prosecute any alcohol or drug abuse patient.[facility] CenterIn the event this information is protected by the Federal Confidentiality of Alcohol and Drug Abuse Patient Records regulations: The Federal rules restrict any use of the information to criminally investigate or prosecute any alcohol or drug abuse patient.[facility] CenterIn the event this information is protected by the Federal Confidentiality of Alcohol and Drug Abuse Patient Records regulations: The Federal rules restrict any use of the information to criminally investigate or prosecute any alcohol or drug abuse patient.[facility] CenterIn the event this information is protected by the Federal Confidentiality of Alcohol and Drug Abuse Patient Records regulations: The Federal rules restrict any use of the information to criminally investigate or prosecute any alcohol or drug abuse patient.[facility] CenterIn the event this information is protected by the Federal Confidentiality of Alcohol and Drug Abuse Patient Records regulations: The Federal rules restrict any use of the information to criminally investigate or prosecute any alcohol or drug abuse patient.[facility] CenterIn the event this information is protected by the Federal Confidentiality of Alcohol and Drug Abuse Patient Records regulations: The Federal rules restrict any use of the information to criminally investigate or prosecute any alcohol or drug abuse patient.[facility] Reason for Visit (unrecogniz ed section and content) Reason Comments PT Discharge Specialty Diagnoses / Procedures Referred By Juan Miguel t Referred To Contact PHYSICAL THERAPY Diagnoses Acetabular labrum tear, left, subsequent encounter [S73.192D] Radiculopathy, lumbar region [M54.16] Procedures NEW RS PT ORTH Debbie Mustafa, PAJoanne [address] [place] [address] Phone: tel: fax: [facility] [address] [place] [address] Phone: tel: fax: Referral ID Status Reason Start Date Expiration Date V isits Requested Visits Authorized [id number] Authorized 09/24/2024 09/23/2025 20 20 Reason Comments Physical Therapy Reason Comments Follow Up Specialty Diagnoses / Procedures Referred By Contact Referred To Contact Orthopedics / ORTHOPAEDIC SURGERY Diagnoses Pain in left hip 4/WK FOLLOW UP Procedures OFFICE/OUTPATIENT ESTABLISHED MOD MDM 30 MIN EPI ESTABLISH Self Debbie Mustafa PA-C [address] [place] [address] Referral ID Status Reason Start Date Expiration Date V isits Requested Visits Authorized [id number] Pending Review 10/24/2024 01/22/2025 1 0 Reason Comments PT Eval Specialty Diagnoses / Procedures Referred By Contac t Referred To Contact PHYSICAL THERAPY Diagnoses Acetabular labrum tear, left, subsequent encounter [S73.192D] Radiculopathy, lumbar region [M54.16] Procedures NEW RS PT ORTH Debbie Mustafa PA-C [address] [place] [address] Pt [facility] [address] [place] [address] Referral ID Status Reason Start Date Expiration Date V isits Requested Visits Authorized [id number] New Request 10/17/2024 01/15/2025 1 1 Reason Comments PT Progress Note Specialty Diagnoses / Procedures Referred By Contac t Referred To Contact PHYSICAL THERAPY Diagnoses S73.199D (ICD-10-CM) - Tear of acetabular labrum, unspecified laterality, subsequent encounter Procedures ESTAB. PATIENT I S73.199D (ICD-10-CM) - Tear of acetabular labrum, unspecified laterality, subsequent encounter Dariusz Berry, TOWER ERECTOR HELPER.SIDE PULLER [address] [place] [address] Pt [facility] [address] [place] [address] Referral ID Status Reason Start Date Expiration Date V isits Requested Visits Authorized [id number] Authorized 09/24/2023 09/23/2024 67 99 Referral ID Status Reason Start Date Expiration Date V isits Requested Visits Authorized [id number] Authorized 09/24/2023 09/23/2024 99 99 Reason Comments PT Re-eval Reason Comments tezspire injection Specialty Diagnoses / Procedures Referred By [facility] t Referred To Contact Allergy / ALLERGY Diagnoses Encounter for allergy injection Tezspire injection Procedures OFFICE/OUTPATIENT ESTABLISHED MOD MDM 30-39 MIN RI STAN ADULT/PEDS INJECTION Self Mc, Nurse [place] [address] [address] Referral ID Status Reason Start Date Expiration Date Visits Re quested Visits Authorized [id number] Closed 12/01/2022 09/23/2023 1 1 Reason Comments Sore Throat Pain rated 7, x1 wee k, cough Nasal Congestion Pt reported chest pa in, denied SOB Follow Up Hx diarrhea, denied blood, mucus Reason Comments Results Reason Onset Date Comments Refill Request 01/28/2022 Reason Comments Spirometry Specialty Diagnoses / Procedures Referred By Critical access hospital Referred To [facility] [place] Diagnoses Moderate persistent asthma without complication Procedures NITRIC OXIDE, EXHALED NITRIC OXIDE GAS DETERMINATION Bessie Pleitez, LYNNE [address] [address] Respiratory [place] [id number] Referral ID Status Reason Start Date Expiration Date V isits Requested Visits Authorized [id number] Closed Auto-Generate d Referral 03/30/2022 04/29/2023 1 1 Reason Comments Established Patient asthma Specialty Diagnoses / Procedures Referred By Critical access hospital Referred To [facility] [place] Diagnoses Asthma, unspecified asthma severity, unspecified whether complicated, unspecified whether persistent Procedures NITRIC OXIDE, EXHALED NITRIC OXIDE GAS DETERMINATION Sam Hankins MD [address] [address] Referral ID Status Reason Start Date Expiration Date V isits Requested Visits Authorized [id number] Closed Auto-Generate d Referral 04/11/2022 05/11/2023 1 1 Specialty Diagnoses / Procedures Referred By Critical access hospital Referred To [facility] [place] Diagnoses Asthma, unspecified asthma severity, unspecified whether complicated, unspecified whether persistent Procedures SPIROMETRY - BASELINE AND POST DILATOR BRNCDILAT RSPSE SPMTRY PRE&POST-BRNCDILAT ADMN Sam Hankins MD [address] [address] Respiratory [place] [address] [place] [address] Referral ID Status Reason Start Date Expiration Date V isits Requested Visits Authorized [id number] Closed Auto-Generate d Referral 04/11/2022 05/11/2023 1 1 Reason Comments New Patient Specialty Diagnoses / Procedures Referred By Contac t Referred To Contact Allergy Diagnoses Uncomplicated asthma, unspecified asthma severity, unspecified whether persistent Allergic rhinitis, unspecified seasonality, unspecified trigger Procedures CONSULT TO ALLERGY/IMMUNOLOGY OFFICE/OUTPATIENT NEW HIGH MDM 60-74 MINUTES Dariusz Berry, KALEIGH.SIDE PULLER [address] [place] [address] Referral ID Status Reason Start Date Expiration Date Visits Requested Visits Authorized [id number] Pending Review PCP Requested Referral 02/28/2022 02/28/2023 [...] MDM 30-39 MIN RI EST ASTHMA Sam Hankins MD [address] [place] [address] True Gaytan MD [address] [facility] [place] [address] Referral ID Status Reason Start Date Expiration Date Visits Re quested Visits Authorized [id number] Closed 05/04/2023 09/23/2023 1 1 Reason Comments Established Patient Left hip pain x 4 mo nths with last 2 days being severe, denies injury Specialty Diagnoses / Procedures Referred By Contac t Referred To Contact Internal Medicine / INTERNAL MEDICINE Diagnoses Severe persistent asthma, uncomplicated Headache, left hip pain Procedures OFFICE/OUTPATIENT ESTABLISHED MOD MDM 30-39 MIN 4C EST Self Diane Bazzi MD [address] [place] [address] Referral ID Status Reason Start Date Expiration Date Visits Re quested Visits Authorized [id number] Closed 04/13/2023 09/23/2023 1 1 Reason Comments Diarrhea nausea x Sunday Specialty Diagnoses / Procedures Referred By Contac t Referred To Contact Internal Medicine / [facility] Diagnoses Diarrhea Nausea diarrhea and nausea Procedures OFFICE/OUTPATIENT ESTABLISHED MOD MDM 30-39 MIN EST SAME DAY Self Jayden Banegas APRN.WAREHOUSE REPRESENTATIVE [address] [place] [address] Referral ID Status Reason Start Date Expiration Date Visits Re quested Visits Authorized [id number] Closed 05/30/2023 09/23/2023 1 1 Reason Comments Established Patient Follow up bilateral hip pain Specialty Diagnoses / Procedures Referred By Contac t Referred To Contact Internal Medicine / INTERNAL MEDICINE Diagnoses Bilateral hip pain bilateral hip pain Procedures OFFICE/OUTPATIENT ESTABLISHED MOD MDM 30-39 MIN 4C EST Self Dariusz Berry TOWER ERECTOR HELPER.SIDE PULLER [address] [place] [address] Referral ID Status Reason Start Date Expiration Date Visits Re quested Visits Authorized [id number] Closed 05/25/2023 09/23/2023 1 1 Reason Comments [...] MDM 30-39 MIN 4C EST Self Diane Bazzi MD [address] [place] [address] Referral ID Status Reason Start Date Expiration Date Visits Re quested Visits Authorized [id number] Closed 06/16/2023 09/23/2023 1 1 Reason Comments Post Op Follow Up egd/ colon follow up Reason Comments Post Op Reason Comments Anesthesia Consult Reason Comments Schedule Surgery Left hip arthroscopy Reason Comments Skull Chopper - Other Reason Comments Appointment Reason Comments Refill Request Reason Comments PA FOR TEZSPIRE 24- Reason Comments Radio Gen RMP Specialty Diagnoses / Procedures Referred By Contac t Referred To Contact XR IMAGING Diagnoses Tear of right acetabular labrum, subsequent encounter Procedures XR HIP BILATERAL 5V PEL/AP/LAT EACH HIP RADEX HIPS BILATERAL WITH PELVIS MINIMUM 5 VIEWS Debbie Mustafa, LYNNE [address] [place] [address] Xr Imaging [place] [address] Referral ID Status Reason Start Date Expiration Date V isits Requested Visits Authorized [id number] Closed Auto-Generate d Referral 10/17/2023 11/15/2024 1 1 Reason Onset Date Comments Established Patient Annual asthm a f/u Immunizations 06/11/2024 Flu vaccination Reason Comments Well Woman Reason Comments Telovelyspire PA Renewal Specialty Diagnoses / Procedures Referred By Contac t Referred To Contact [facility] Diagnoses Severe persistent asthma without complication Procedures SPIROMETRY WITH DILATOR IF OBSTRUCTED BRNCDILAT RSPSE SPMTRY PRE&POST-BRNCDILAT ADMN True Gaytan MD [address] [place] [address] Respiratory [place] [address] [place] [address] Referral ID Status Reason Start Date Expiration Date V isits Requested Visits Authorized [id number] Closed Auto-Generate d Referral 12/20/2023 01/18/2025 1 1 Specialty Diagnoses / Procedures Referred By Contac t Referred To Contact [facility] Diagnoses Severe persistent asthma without complication Procedures NITRIC OXIDE, EXHALED NITRIC OXIDE GAS DETERMINATION True Gaytan MD [address] [place] [address] Respiratory [place] [address] [place] [address] Referral ID Status Reason Start Date Expiration Date V isits Requested Visits Authorized [id number] Closed Auto-Generate d Referral 12/20/2023 01/18/2025 1 1 Reason Comments Established Patient 6 month follow up Asthma Reason Comments Radiology US Specialty Diagnoses / Procedures Referred By Contac t Referred To Contact US IMAGING Diagnoses Enlarged thyroid Procedures US THYROID/PARATHYROID US SOFT TISSUE HEAD & NECK REAL TIME IMGE DOCM Dariusz Berry, TOWER ERECTOR HELPER.SIDE PULLER [address] [place] [address] Us Imaging [id number] Referral ID Status Reason Start Date Expiration Date V isits Requested Visits Authorized [id number] Closed Auto-Generate d Referral 07/18/2024 08/17/2025 1 1 Reason Comments low grade fever Reason Comments Imm/Inj Reason Comments Future Appointment Re-Establishing Care [place] 30 Specialty Diagnoses / Procedures Referred By Contac t Referred To Contact MR IMAGING Diagnoses Disorder of central nervous system, unspecified Vasculopathy Procedures MRI BRAIN WO/W IVCON MRI BRAIN BRAIN STEM W/O W/CONTRAST MATERIAL Sydney José MD [address] [place] [address] Mr Imaging [id number] Referral ID Status Reason Start Date Expiration Date V isits Requested Visits Authorized [id number] Closed Auto-Generate d Referral 08/18/2024 09/23/2024 1 1 Reason Comments Thyroid Problem Labs, intermittent h oarse voice, US 07/25/24 Specialty Diagnoses / Procedures Referred By Contac t Referred To Contact Endocrinology Diagnoses TSH elevation Procedures CONSULT TO ENDOCRINOLOGY OFFICE/OUTPATIENT [facility] 60 MINUTES Dariusz Berry, TOWER ERECTOR HELPER.SIDE PULLER [address] [place] [address] Referral ID Status Reason Start Date Expiration Date V isits Requested Visits Authorized [id number] Closed PCP Requested Referral 08/01/2024 08/01/2025 1 1 Reason Comments Skin Check Reason Comments Patient Question Reason Comments Established Patient Pain Specialty Diagnoses / Procedures Referred By Contac t Referred To Contact XR IMAGING Diagnoses Pain in left hip Procedures XR HIP GENERAL 3V PELV/AP/LAT LEFT RADEX HIP UNILATERAL WITH PELVIS 2-3 VIEWS Debibe Mustafa PA-C [address] [place] [address] [place] [address] Referral ID Status Reason Start Date Expiration Date V isits Requested Visits Authorized [id number] Closed Auto-Generate d Referral 09/19/2024 10/19/2025 1 1 Reason Comments Chest Congestion cough x 3 days Reason Onset Date Comments Refill Request 10/10/2024 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 Comments 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 Reason Comments Biopsy Specialty Diagnoses / Procedures Referred By Contac t Referred To Contact Family Medicine / FAMILY MEDICINE Diagnoses Screening for malignant neoplasm of skin shave biopsy Procedures REM LESION TRUNK,ARM, LEG <0.5 CM PROC[place]URE [place] [address] [place] [address] Referral ID Status Reason Start Date Expiration Date Visits Re quested Visits Authorized [id number] Closed 10/23/2024 09/23/2025 1 1 Reason Onset Date Comments Refill Request 10/24/2024 Reason Comments Menstrual Problem Frequent periods Reason Comments Established Patient 6 month follow up as thma Specialty Diagnoses / Procedures Referred By Contac t Referred To Contact US IMAGING Diagnoses Irregular periods/menstrual cycles Procedures US FEMALE PELVIS TRANSVAG US TRANSVAGINAL Lelia Novak APRN.CNM [address] [place] [address] Phone: tel: fax: US IMAGING [id number] Referral ID Status Reason Start Date Expiration Date V isits Requested Visits Authorized [id number] Closed Auto-Generate d Referral 01/02/2025 02/01/2026 1 1 Reason Onset Date Comments Orders 01/08/2025 Reason Comments Endometrial Biopsy Specialty Diagnoses / Procedures Referred By Contac t Referred To Contact [facility] Diagnoses Irregular periods Excessive bleeding in premenopausal period Adenomyosis Uterine leiomyoma, unspecified location Procedures ENDOMETRIAL BIOPSY ENDOMETRIAL BX W/WO ENDOCERVIX BX W/O DILAT SPX Lelia Novak APRN.CNChris [address] [place] [address] Phone: tel: fax: [facility] [address] [place] [address] Referral ID Status Reason Start Date Expiration Date V isits Requested Visits Authorized [id number] Closed Auto-Generate d Referral 01/08/2025 01/08/2026 1 1 Reason Comments Consult Reason Comments Pre-Op Visit Reason Comments pre op question Care Teams (unrecognized sec tion and content) Bacteriology Teacher Relationship Specialty Start Date End Date Diane Bazzi MD [address] [place] [id number] PCP - General Internal Medicine 07/29/18 Bacteriology Teacher Relationship Specialty Start Date End Date Diane Bazzi MD [address] [place] [address] PCP - General Internal Medicine 07/29/18 Bacteriology Teacher Relationship Specialty Start Date End Date Diane Bazzi MD [address] [place] [address] PCP - General Internal Medicine 07/29/18 Bacteriology Teacher Relationship Specialty Start Date End Date Diane Bazzi MD [address] [place] [address] PCP - General Internal Medicine 07/29/18 Bacteriology Teacher Relationship Specialty Start Date End Date Diaen Bazzi MD [address] [place] [address] PCP - General Internal Medicine 07/29/18 Bacteriology Teacher Relationship Specialty Start Date End Date Diane Bazzi MD [address] [place] [address] PCP - General Internal Medicine 07/29/18 Bacteriology Teacher Relationship Specialty Start Date End Date Diane Bazzi MD [address] [place] [address] PCP - General Internal Medicine 07/29/18 Bacteriology Teacher Relationship Specialty Start Date End Date Diane Bazzi MD [address] [facility] [address] PCP - General Internal Medicine 07/29/18 Bacteriology Teacher Relationship Specialty Start Date End Date Diane Bazzi MD [address] [facility] [place] [address] PCP - General Internal Medicine 07/29/18 Bacteriology Teacher Relationship Specialty Start Date End Date Diane Bazzi MD [facility] [place] [address] PCP - General Internal Medicine 07/29/18 Bacteriology Teacher Relationship Specialty Start Date End Date Diane Bazzi MD [address] [place] [address], [place] [address] PCP - General Internal Medicine 07/29/18 Bacteriology Teacher Relationship Specialty Start Date End Date Diane Bazzi MD [address] [place] [address], [place] [address] PCP - General Internal Medicine 07/29/18 Bacteriology Teacher Relationship Specialty Start Date End Date Diane Bazzi MD [address] [place] [address], [place] [address] PCP - General Internal Medicine 07/29/18 Bacteriology Teacher Relationship Specialty Start Date End Date Diane Bazzi MD [facility] [place] [address] PCP - General Internal Medicine 07/29/18 Bacteriology Teacher Relationship Specialty Start Date End Date Diane Bazzi MD [address] [place] [address], [place] [address] PCP - General Internal Medicine 07/29/18 Bacteriology Teacher Relationship Specialty Start Date End Date Diane Bazzi MD [address] [place] [address], [place] [address] PCP - General Internal Medicine 07/29/18 Bacteriology Teacher Relationship Specialty Start Date End Date Diane Bazzi MD [address] [facility] [address] PCP - General Internal Medicine 07/29/18 Bacteriology Teacher Relationship Specialty Start Date End Date Diane Bazzi MD [address] [facility] [place] [address] PCP - General Internal Medicine 07/29/18 Bacteriology Teacher Relationship Specialty Start Date End Date Diane Bazzi MD [address] [place] [address] PCP - General Internal Medicine 07/29/18 Bacteriology Teacher Relationship Specialty Start Date End Date Diane Bazzi MD [address] [place] [address] PCP - General Internal Medicine 07/29/18 Bacteriology Teacher Relationship Specialty Start Date End Date Diane Bazzi MD [address] [place] [address] PCP - General Internal Medicine 07/29/18 Bacteriology Teacher Relationship Specialty Start Date End Date Diane Bazzi MD [address] [place] [address] PCP - General Internal Medicine 07/29/18 Bacteriology Teacher Relationship Specialty Start Date End Date Diane Bazzi MD [address] [place] [address] PCP - General Internal Medicine 07/29/18 Bacteriology Teacher Relationship Specialty Start Date End Date Diane Bazzi MD [address] [place] [address] PCP - General Internal Medicine 07/29/18 Bacteriology Teacher Relationship Specialty Start Date End Date Diane Bazzi MD [address] [place] [address] PCP - General Internal Medicine 07/29/18 Bacteriology Teacher Relationship Specialty Start Date End Date Diane Bazzi MD [address] [place] [address] PCP - General Internal Medicine 07/29/18 Bacteriology Teacher Relationship Specialty Start Date End Date Diane Bazzi MD [address] [place] [address] PCP - General Internal Medicine 07/29/18 Bacteriology Teacher Relationship Specialty Start Date End Date Diane Bazzi MD [address] [place] [address] PCP - General Internal Medicine 07/29/18 Bacteriology Teacher Relationship Specialty Start Date End Date Diane Bazzi MD [address] [place] [address] PCP - General Internal Medicine 07/29/18 Bacteriology Teacher Relationship Specialty Start Date End Date Diane Bazzi MD [address] [facility] [address] PCP - General Internal Medicine 07/29/18 Bacteriology Teacher Relationship Specialty Start Date End Date Diane Bazzi MD [address] [place] [address] PCP - General Internal Medicine 07/29/18 Bacteriology Teacher Relationship Specialty Start Date End Date Diane Bazzi MD [address] [place] [address] PCP - General Internal Medicine 07/29/18 Bacteriology Teacher Relationship Specialty Start Date End Date Diane Bazzi MD [address] [facility] [address] PCP - General Internal Medicine 07/29/18 Bacteriology Teacher Relationship Specialty Start Date End Date Diane Bazzi MD [address] [facility] [address] PCP - General Internal Medicine 07/29/18 Bacteriology Teacher Relationship Specialty Start Date End Date Diane Bazzi MD [address] [facility] [address] PCP - General Internal Medicine 07/29/18 Bacteriology Teacher Relationship Specialty Start Date End Date Diane Bazzi MD [address] [facility] [address] PCP - General Internal Medicine 07/29/18 Bacteriology Teacher Relationship Specialty Start Date End Date Diane Bazzi MD [address] [place] [address] PCP - General Internal Medicine 07/29/18 Bacteriology Teacher Relationship Specialty Start Date End Date Diane Bazzi MD [address] [facility] [address] PCP - General Internal Medicine 07/29/18 Team Status: Active Member Role Status Dates Dr. Diane Bazzi MD Primary Care Provider Active Team Status: Inactive Member Role Status Dates Dr. Diane Bazzi MD Primary Care Provider Active Dr. Abdelrahman Shukla MD Attending Provider, Referring Provider Active Bacteriology Teacher Relationship Specialty Start Date End Date Diane Bazzi MD [address] [facility] [address] PCP - General Internal Medicine 07/29/18 Bacteriology Teacher Relationship Specialty Start Date End Date Diane Bazzi MD [address] [facility] [address] PCP - General Internal Medicine 07/29/18 Bacteriology Teacher Relationship Specialty Start Date End Date Diane Bazzi MD [address] [facility] [address] PCP - General Internal Medicine 07/29/18 Bacteriology Teacher Relationship Specialty Start Date End Date Diane Bazzi MD [address] [place] [address] PCP - General Internal Medicine 07/29/18 Bacteriology Teacher Relationship Specialty Start Date End Date Diane Bazzi MD [address] [place] [address] PCP - General Internal Medicine 07/29/18 Bacteriology Teacher Relationship Specialty Start Date End Date Diane Bazzi MD [address] [facility] [address] PCP - General Internal Medicine 07/29/18 Bacteriology Teacher Relationship Specialty Start Date End Date Diane Bazzi MD [address] [facility] [address] PCP - General Internal Medicine 07/29/18 Bacteriology Teacher Relationship Specialty Start Date End Date Diane Bazzi MD [address] [place] [address] PCP - General Internal Medicine 07/29/18 Bacteriology Teacher Relationship Specialty Start Date End Date Diane Bazzi MD [address] [facility] [place] [address] PCP - General Internal Medicine 07/29/18 Bacteriology Teacher Relationship Specialty Start Date End Date Diane Bazzi MD [address] [place] [address] PCP - General Internal Medicine 07/29/18 Bacteriology Teacher Relationship Specialty Start Date End Date Diane Bazzi MD [address] [place] [address] PCP - General Internal Medicine 07/29/18 Bacteriology Teacher Relationship Specialty Start Date End Date Diane Bazzi MD [address] [place] [address] PCP - General Internal Medicine 07/29/18 Bacteriology Teacher Relationship Specialty Start Date End Date Diane Bazzi MD [address] [place] [address] PCP - General Internal Medicine 07/29/18 Bacteriology Teacher Relationship Specialty Start Date End Date Diane Bazzi MD [address] [place] [address] PCP - General Internal Medicine 07/29/18 Bacteriology Teacher Relationship Specialty Start Date End Date Diane Bazzi MD [address] [place] [address] PCP - General Internal Medicine 07/29/18 Bacteriology Teacher Relationship Specialty Start Date End Date Diane Bazzi MD [address] [facility] [address] PCP - General Internal Medicine 07/29/18 Bacteriology Teacher Relationship Specialty Start Date End Date Diane Bazzi MD [address] [facility] [address] PCP - General Internal Medicine 07/29/18 Bacteriology Teacher Relationship Specialty Start Date End Date Diane Bazzi MD [address] [facility] [address] PCP - General Internal Medicine 07/29/18 Bacteriology Teacher Relationship Specialty Start Date End Date Diane Bazzi MD [address] [facility] [address] PCP - General Internal Medicine 07/29/18 Bacteriology Teacher Relationship Specialty Start Date End Date Diane Bazzi MD [address] [facility] [address] PCP - General Internal Medicine 07/29/18 Bacteriology Teacher Relationship Specialty Start Date End Date Diane Bazzi MD [address] [facility] [address] PCP - General Internal Medicine 07/29/18 Bacteriology Teacher Relationship Specialty Start Date End Date Diane Bazzi MD [address] [facility] [address] PCP - General Internal Medicine 07/29/18 Bacteriology Teacher Relationship Specialty Start Date End Date Diane Bazzi MD [address] [facility] [address] PCP - General Internal Medicine 07/29/18 Bacteriology Teacher Relationship Specialty Start Date End Date Diane Bazzi MD [address] [place] [address] PCP - General Internal Medicine 07/29/18 Bacteriology Teacher Relationship Specialty Start Date End Date Diane Bazzi MD [address] [place] [address] PCP - General Internal Medicine 07/29/18 Bacteriology Teacher Relationship Specialty Start Date End Date Diane Bazzi MD [address] [place] [address] PCP - General Internal Medicine 07/29/18 Bacteriology Teacher Relationship Specialty Start Date End Date Diane Bazzi MD [address] [place] [address] PCP - General Internal Medicine 07/29/18 Bacteriology Teacher Relationship Specialty Start Date End Date Diane Bazzi MD [address] [place] [address] PCP - General Internal Medicine 07/29/18 Bacteriology Teacher Relationship Specialty Start Date End Date Diane Bazzi MD [address] [facility] [address] PCP - General Internal Medicine 07/29/18 Bacteriology Teacher Relationship Specialty Start Date End Date Diane Bazzi MD [address] [place] [address] PCP - General Internal Medicine 07/29/18 Bacteriology Teacher Relationship Specialty Start Date End Date Diane Bazzi MD [address] [place] [address] PCP - General Internal Medicine 07/29/18 Dariusz Berry APRN.SIDE PULLER [address] [place] [address] [facility] 09/01/24 Alyssa Inman APRN.WAREHOUSE REPRESENTATIVE [address] [place] [address] [facility] 09/01/24 Bacteriology Teacher Relationship Specialty Start Date End Date Diane Bazzi MD [address] [place] [address] PCP - General Internal Medicine 07/29/18 Dariusz Berry TOWER ERECTOR HELPER.SIDE PULLER [address] [place] [address] [facility] 09/01/24 Alyssa Inman APRN.WAREHOUSE REPRESENTATIVE [address] [place] [address] [facility] 09/01/24 Bacteriology Teacher Relationship Specialty Start Date End Date Diane Bazzi MD [address] [place] [address] PCP - General Internal Medicine 07/29/18 Dariusz Berry TOWER ERECTOR HELPER.SIDE PULLER [address] [place] [address] [facility] 09/01/24 Alyssa Inman APRN.WAREHOUSE REPRESENTATIVE [address] [place] [address] [facility] 09/01/24 Bacteriology Teacher Relationship Specialty Start Date End Date Diane Bazzi MD [address] [place] [address] PCP - General Internal Medicine 07/29/18 Dariusz Berry, TOWER ERECTOR HELPER.SIDE PULLER [address] [place] [address] [facility] 09/01/24 Alyssa Inman TOWER ERECTOR HELPER.WAREHOUSE REPRESENTATIVE [address] [place] [address] [facility] Internal Medicine 09/01/24 Bacteriology Teacher Relationship Specialty Start Date End Date Diane Bazzi MD [address] [place] [address] PCP - General Internal Medicine 07/29/18 Dariusz Berry, TOWER ERECTOR HELPER.SIDE PULLER [address] [place] [address] [facility] Internal Medicine 09/01/24 Alyssa Inman APRN.WAREHOUSE REPRESENTATIVE [address] [place] [address] [facility] Internal Medicine 09/01/24 Bacteriology Teacher Relationship Specialty Start Date End Date Diane Bazzi MD [address] [place] [address] PCP - General Internal Medicine 07/29/18 Dariusz Berry, TOWER ERECTOR HELPER.SIDE PULLER [address] [place] [address] [facility] Internal Medicine 09/01/24 Alyssa Inman APRN.WAREHOUSE REPRESENTATIVE [address] [place] [address] [facility] 09/01/24 Bacteriology Teacher Relationship Specialty Start Date End Date Diane Bazzi MD [address] [facility] [address] PCP - General Internal Medicine 07/29/18 Dariusz Berry, TOWER ERECTOR HELPER.SIDE PULLER [address] [place] [address] [facility] 09/01/24 Alyssa Inman APRN.WAREHOUSE REPRESENTATIVE [address] [place] [address] [facility] Internal Medicine 09/01/24 Bacteriology Teacher Relationship Specialty Start Date End Date Diane Bazzi MD [address] [place] [address] PCP - General Internal Medicine 07/29/18 Dariusz Berry, TOWER ERECTOR HELPER.SIDE PULLER [address] [place] [address] [facility] 09/01/24 Alyssa Inman APRN.WAREHOUSE REPRESENTATIVE [address] [place] [address] [facility] 09/01/24 Bacteriology Teacher Relationship Specialty Start Date End Date Diane Bazzi MD [address] [place] [address] PCP - General Internal Medicine 07/29/18 Dariusz Berry, TOWER ERECTOR HELPER.SIDE PULLER [address] [place] [address] [facility] 09/01/24 Alyssa Inman APRN.WAREHOUSE REPRESENTATIVE [address] [place] [address] [facility] 09/01/24 Bacteriology Teacher Relationship Specialty Start Date End Date Diane Bazzi MD [address] [place] [address] PCP - General Internal Medicine 07/29/18 Dariusz Berry, KALEIGH.SIDE PULLER [address] [place] [address] [facility] 09/01/24 Alyssa Inman APRN.WAREHOUSE REPRESENTATIVE [address] [place] [address] [facility] 09/01/24 Bacteriology Teacher Relationship Specialty Start Date End Date Diane Bazzi MD [address] [place] [address] PCP - General Internal Medicine 07/29/18 Dariusz Berry, TOWER ERECTOR HELPER.SIDE PULLER [address] [place] [address] [facility] 09/01/24 Alyssa Inman APRN.WAREHOUSE REPRESENTATIVE [address] [place] [address] [facility] 09/01/24 Bacteriology Teacher Relationship Specialty Start Date End Date Diane Bazzi MD [address] [place] [address] PCP - General Internal Medicine 07/29/18 Dariusz Berry, TOWER ERECTOR HELPER.SIDE PULLER [address] [place] [address] [facility] 09/01/24 Alyssa Inman TOWER ERECTOR HELPER.WAREHOUSE REPRESENTATIVE [address] [place] [address] [facility] 09/01/24 Bacteriology Teacher Relationship Specialty Start Date End Date Diane Bazzi MD [address] [place] [address] PCP - General Internal Medicine 07/29/18 Dariusz Berry, TOWER ERECTOR HELPER.SIDE PULLER [address] [place] [address] [facility] 09/01/24 Alyssa Inman TOWER ERECTOR HELPER.WAREHOUSE REPRESENTATIVE [address] [place] [address] [facility] 09/01/24 Bacteriology Teacher Relationship Specialty Start Date End Date Diane Bazzi MD [address] [place] [address] PCP - General Internal Medicine 07/29/18 Dariusz Berry, TOWER ERECTOR HELPER.SIDE PULLER [address] [place] [address] [facility] 09/01/24 Alyssa Inman TOWER ERECTOR HELPER.WAREHOUSE REPRESENTATIVE [address] [place] [address] [facility] 09/01/24 Bacteriology Teacher Relationship Specialty Start Date End Date Diane Bazzi MD [address] [place] [address] PCP - General Internal Medicine 07/29/18 Dariusz Berry, TOWER ERECTOR HELPER.SIDE PULLER [address] [place] [address] [facility] 09/01/24 Alyssa Inman TOWER ERECTOR HELPER.WAREHOUSE REPRESENTATIVE [address] [place] [address] [facility] Internal Medicine 09/01/24 Bacteriology Teacher Relationship Specialty Start Date End Date Diane Bazzi MD [address] [place] [address] PCP - General Internal Medicine 07/29/18 Dariusz Berry, TOWER ERECTOR HELPER.SIDE PULLER [address] [place] [address] [facility] 09/01/24 Alyssa Inman TOWER ERECTOR HELPER.WAREHOUSE REPRESENTATIVE [address] [place] [address] [facility] 09/01/24 Bacteriology Teacher Relationship Specialty Start Date End Date Diane Bazzi MD [address] [place] [address] PCP - General Internal Medicine 07/29/18 Dariusz Berry, TOWER ERECTOR HELPER.SIDE PULLER [address] [place] [address] [facility] 09/01/24 Alyssa Inman APRN.WAREHOUSE REPRESENTATIVE [address] [facility] [place] [address] [facility] 09/01/24 Bacteriology Teacher Relationship Specialty Start Date End Date Diane Bazzi MD [address] [facility] [address] PCP - General Internal Medicine 07/29/18 Dariusz Berry, TOWER ERECTOR HELPER.SIDE PULLER [address] [facility] [address] [facility] 09/01/24 Alyssa Inman TOWER ERECTOR HELPER.WAREHOUSE REPRESENTATIVE [address] [place] [address] [facility] 09/01/24 Bacteriology Teacher Relationship Specialty Start Date End Date Diane Bazzi MD [address] [facility] [address] PCP - General Internal Medicine 07/29/18 Dariusz Berry, TOWER ERECTOR HELPER.SIDE PULLER [address] [facility] [address] [facility] 09/01/24 Alyssa Inman TOWER ERECTOR HELPER.WAREHOUSE REPRESENTATIVE [address] [facility] [address] [facility] 09/01/24 Bacteriology Teacher Relationship Specialty Start Date End Date Diane Bazzi MD [address] [facility] [place] [address] PCP - General Internal Medicine 07/29/18 Dariusz Berry, TOWER ERECTOR HELPER.SIDE PULLER [address] [place] [address] [facility] 09/01/24 Alyssa Inman APRN.WAREHOUSE REPRESENTATIVE [address] [place] [address] [facility] 09/01/24 Bacteriology Teacher Relationship Specialty Start Date End Date Diane Bazzi MD [address] [place] [address] PCP - General Internal Medicine 07/29/18 Dariusz Berry, TOWER ERECTOR HELPER.SIDE PULLER [address] [place] [address] [facility] 09/01/24 Alyssa Inman APRN.WAREHOUSE REPRESENTATIVE [address] [facility] [place] [address] [facility] 12/16/24 Bacteriology Teacher Relationship Specialty Start Date End Date Diane Bazzi MD [address] [place] [address] PCP - General Internal Medicine 07/29/18 Dariusz Berry, TOWER ERECTOR HELPER.SIDE PULLER [address] [facility] [place] [address] [facility] 09/01/24 Alyssa Inman TOWER ERECTOR HELPER.WAREHOUSE REPRESENTATIVE [address] [facility] [place] [address] [facility] Internal Medicine 12/16/24 Bacteriology Teacher Relationship Specialty Start Date End Date Diane Bazzi MD [address] [facility] [place] [address] PCP - General Internal Medicine 07/29/18 Dariusz Berry, TOWER ERECTOR HELPER.SIDE PULLER [address] [facility] [address] [facility] 09/01/24 Alyssa Inman TOWER ERECTOR HELPER.WAREHOUSE REPRESENTATIVE [address] [facility] [address] [facility] 12/16/24 Bacteriology Teacher Relationship Specialty Start Date End Date Diane Bazzi MD [address] [facility] [place] [address] PCP - General Internal Medicine 07/29/18 Dariusz Berry, TOWER ERECTOR HELPER.SIDE PULLER [address] [facility] [place] [address] [facility] Internal Medicine 09/01/24 Alyssa Inman TOWER ERECTOR HELPER.WAREHOUSE REPRESENTATIVE [address] [facility] [address] [facility] Internal Medicine 12/16/24 Bacteriology Teacher Relationship Specialty Start Date End Date Diane Bazzi MD [address] [facility] [address] PCP - General Internal Medicine 07/29/18 Dariusz Berry, TOWER ERECTOR HELPER.SIDE PULLER [address] [facility] [address] [facility] Internal Medicine 09/01/24 Alyssa Inman TOWER ERECTOR HELPER.WAREHOUSE REPRESENTATIVE [address] [facility] [address] [facility] Internal Medicine 12/16/24 Bacteriology Teacher Relationship Specialty Start Date End Date Diane Bazzi MD [address] [place] [address] PCP - General Internal Medicine 07/29/18 Dariusz Berry, TOWER ERECTOR HELPER.SIDE PULLER [address] [place] [address] [facility] Internal [facility] 09/01/24 Alyssa Inman TOWER ERECTOR HELPER.WAREHOUSE REPRESENTATIVE [address] [place] [address] [facility] Internal Medicine 12/16/24 Bacteriology Teacher Relationship Specialty Start Date End Date Diane Bazzi MD [address] [place] [address] PCP - General Internal Medicine 07/29/18 Dariusz Berry, TOWER ERECTOR HELPER.SIDE PULLER [address] [place] [address] [facility] Internal Medicine 09/01/24 Alyssa Inman APRN.WAREHOUSE REPRESENTATIVE [address] [place] [address] [facility] Internal Medicine 12/16/24 Bacteriology Teacher Relationship Specialty Start Date End Date Diane Bazzi MD [address] [place] [address] PCP - General Internal Medicine 07/29/18 Dariusz Berry, TOWER ERECTOR HELPER.SIDE PULLER [address] [place] [address] [facility] Internal [facility] 09/01/24 Alyssa Inman TOWER ERECTOR HELPER.WAREHOUSE REPRESENTATIVE [address] [place] [address] [facility] Internal Medicine 09/01/24 12/12/24 Alyssa Inman APRN.WAREHOUSE REPRESENTATIVE [address] [place] [address] [facility] Medicine 12/16/24 Bacteriology Teacher Relationship Specialty Start Date End Date Diane Bazzi MD [address] [place] [address] PCP - General Internal Medicine 07/29/18 Alyssa Inman APRN.WAREHOUSE REPRESENTATIVE [address] [place] [address] [facility] Internal [facility] 12/16/24 Dariusz Berry TOWER ERECTOR HELPER.SIDE PULLER [address] [place] [address] [facility] Internal Medicine 02/11/25 Bacteriology Teacher Relationship Specialty Start Date End Date Diane Bazzi MD [address] [place] [address] PCP - General Internal Medicine 07/29/18 Alyssa Inman TOWER ERECTOR HELPER.WAREHOUSE REPRESENTATIVE [address] [place] [address] [facility] Internal Medicine 12/16/24 Dariusz Berry TOWER ERECTOR HELPER.SIDE PULLER [address] [place] [address] [facility] Internal Medicine 02/11/25 Bacteriology Teacher Relationship Specialty Start Date End Date Diane Bazzi MD [address] [place] [address] PCP - General Internal Medicine 07/29/18 Alyssa Inman APRN.WAREHOUSE REPRESENTATIVE [address] [place] [address] [facility] Internal Medicine 12/16/24 Dariusz Berry APRN.SIDE PULLER [address] [place] [address] [facility] Internal Medicine 02/11/25 Goals (unrecognized section and content) Goals may be documented in a n alternate sectionGoals may be documented in an alternate section FOR RECORDS PERTAINING TO PATIENTS WHO ARE [...] BE BASED ON THE PRIMARY CLINICAL RECORDS. [employer] provides no warranty or guarantee of the accuracy or completeness of information in this document.
--- NOTE | 2025-03-06 07:20 | PRE.ANES_ITS ---
ASA Classification* ASA Classification ASA Classification: 2 Assessment & Plan Anesthesia* Anesthesia Assessment Anesthesia Assessment: Discussed sedation and/or anesthesia options, risks, benefits, and alternatives with patient/parents/legal guardian/POA. Questions invited. The patient/parents/legal guardian/POA seems to understand and agrees to proceed with anesthesia plan. Reviewed the physical assessment, medical history, allergy history and patient home medications list prior to surgery/procedure/anesthetic and documented any changes. Performed airway and anesthesia risk assessments. Anesthesia Type Anesthesia Type: General Anesthesia Focused Assessment* Airway Assessment Mouth opens: >3 cm Mallampati Score: II Labs Anesthesia Preop lab: CBC WBC 4.4 K/mm3 (4.4-11.0) 02/27/25 07:55 02/27/25 RBC 3.83 M/mm3 (4.2-5.4) L 02/27/25 07:55 02/27/25 Hgb 12.0 g/dL (12.0-15.0) 02/27/25 07:55 02/27/25 Hct 35.4 % (37-47) L 02/27/25 07:55 02/27/25 Plt Count 207 K/mm3 (150-450) 02/27/25 07:55 02/27/25 CHEMISTRY Potassium 3.8 mmol/L (3.3-5.1) 02/27/25 07:55 02/27/25 Sodium 141 mmol/L (133-145) 02/27/25 07:55 02/27/25 Magnesium 2.1 mg/dL (1.5-2.2) 02/27/25 07:55 02/27/25 BUN 11 mg/dL (4-19) 02/27/25 07:55 02/27/25 Creatinine 0.77 mg/dL (0.70-1.20) 02/27/25 07:55 02/27/25 Glucose 92 mg/dL (70-99) 02/27/25 07:55 02/27/25 COAG Urine Test Pending 03/06/25 07:00 03/06/25 Pre-Assessment Diagnosis/Proposed Procedure Planned Operative Procedure(s): HYSTERECTOMY TLH BSO,CYSTO Anesthesia History 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 When Was Last Pacemaker Check QUESTION #4 FULL TEXT: You/Your Family Experience fever (hyperthermia) with Anesthesia Last Oral Intake Last Oral intake: Last Oral Intake NPO since Meds taken in AM with sips of water? 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 duplicating unit supervisor Female Yes 02/23/25 14:19 HX of Motion Sickness Yes 02/23/25 14:19 HX of N/V After Surgery Yes 02/23/25 14:19 Non-Smoker Yes 02/23/25 14:19 Duration of Surgery greater Yes 02/23/25 14:19 than 60 minutes Number of Risk Factors 5 02/23/25 14:19 PONV Score Severe Risk 02/23/25 14:19 Height & Weight Height & Weight: Anesthesia: Height & Weight Weight: 87.997 kg 03/05/25 09:13 Respiratory Assessment Respiratory Assessment - microfilm duplicating unit supervisor: Respiratory Tract Infection Hx - microfilm duplicating unit supervisor Hx Respiratory Tract Infection No 02/23/25 14:19 STOP Sleep Apnea STOP Sleep Apnea - microfilm duplicating unit supervisor: STOP Sleep Apnea - microfilm duplicating unit supervisor Hx Hypertension No 02/23/25 14:19 Hx Sleep Apnea No 02/23/25 14:19 CPAP BIPAP Do you snore loudly (louder No 02/23/25 14:19 than talking or can be heard Do you often feel tired/ No 02/23/25 14:19 fatigued/ sleepy during daytime? Has anyone observed you stop No 02/23/25 14:19 breathing during sleep? STOP Results Negative 02/23/25 14:19 QUESTION #5 FULL TEXT : Do you snore loudly (louder than talking or can be heard through closed doors)? 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 Specify any problems Hx of Preganancy in last 3 No 02/23/25 14:19 Months Nurse Filling Out Transfusion DSCHRIBER 02/23/25 14:19 & Questions: Date: 02/23/25 02/23/25 14:19 Time: 14:21 02/23/25 14:19 Patient unable to answer at this time (ie. confused, unrespo /Reproduction History /Reproductive History - microfilm duplicating unit supervisor: /Reproductive Hx- microfilm duplicating unit supervisor Hx Now No 02/23/25 14:19 Gestational Age (in weeks): EDC: Hx Hx Para Hx Section SAB No 02/23/25 14:19 Active Medications Active Medications: Current Medications Generic Name Dose Route Start Last Admin Trade Name Freq PRN Reason Stop Dose Admin Acetaminophen 1,000 mg 03/06/25 09:15 Acetaminophen 500 Mg Tablet PO 03/06/25 09:16 PREOP ONE Dexamethasone Sodium Phosphate 8 mg 03/06/25 09:15 Dexamethasone 4 Mg/Ml Vial IV 03/06/25 09:16 INTRAOP ONE Enoxaparin Sodium 40 mg 03/06/25 09:15 Enoxaparin 40 Mg/0.4 Ml Syringe SC 03/06/25 09:16 PREOP ONE Gabapentin 600 mg 03/06/25 09:15 Gabapentin 600 Mg Tablet PO 03/06/25 09:16 PREOP ONE Lactated Ringer's 1,000 mls @ 40 mls/hr 03/06/25 09:15 IV .Q25H SALOMÓN Cefazolin Sodium 2 gm/ Sodium 110 mls @ 150 mls/hr 03/06/25 09:15 Chloride IV 03/06/25 09:58 INTRAOP ONE Lactated Ringer's 1,000 mls @ 70 mls/hr 03/06/25 09:15 IV .[id number] SALOMÓN Metronidazole 500 mg in 100 mls @ 100 mls/hr 03/06/25 09:15 Flagyl IV 03/06/25 10:14 X1 ONE Magnesium Sulfate 1 gm/ 102 mls @ 408 mls/hr 03/06/25 09:15 Dextrose IV 03/06/25 09:29 INTRAOP ONE Insulin Human Lispro 0 unit 03/06/25 09:15 Insulin Lispro 100 Unit/Ml Insuln.Pen SC Q4H PRN PRN BG >/= 180, SEE PROTOCOL Protocol Ondansetron HCl 4 mg 03/06/25 09:15 Ondansetron 4 Mg/2 Ml Vial IV 03/06/25 09:16 INTRAOP ONE Scopolamine HBr 1 patch 03/06/25 09:15 Scopolamine 1mg/72hr Patch TD 03/06/25 09:16 PREOP ONE PFSH Medical History Wears glasses Back pain History of hiatal hernia History of IBS Asthma Leg cramps Non-smoker History of echocardiogram History of stress test Cardiology follow-up encounter Home Medications ?Medication ?Instructions ?Recorded ?Last Taken ?Type Lactobacillus acidophilus 250 60 mmu cells PO DAILY Unknown History million cell capsule (Probiotic Acidophilus) albuterol sulfate 2.5 mg/3 mL 2.5 mg inhalation Q4H NC N 02/23/25 Unknown History (0.083 %) solution for nebulization shortness of breat h or wheezing albuterol sulfate 90 mcg/actuation 2 inh inhalation Q8 H PRN shortness 02/23/25 Unknown History aerosol inhaler (Ventolin HFA) of breath or wheezing azelastine 137 mcg (0.1 %) nasal 2 spray intranasal BI D 02/23/25 Unknown History spray cetirizine 10 mg capsule (Zyrtec) 10 mg PO DAILY PRN a llergy symptoms 02/23/25 Unknown History fexofenadine 180 mg tablet 180 mg PO DAILY 02/23/25 Un known History (Allergy Relief (fexofenadine)) fluticasone propionate 230 2 inh inhalation BID Unknown History mcg-salmeterol 21 mcg/actuation HFA inhaler (Advair HFA) fluticasone propionate 50 2 spray intranasal DAILY 11/18 Unknown History mcg/actuation nasal spray,suspension montelukast 10 mg tablet 10 mg PO QHS 02/23/25 Unknow n History ondansetron HCl 4 mg tablet 4 mg PO Q8H PRN nausea and vomiting 02/23/25 Unknown History prednisone 50 mg tablet 10 mg PO DAILY PRN ASTHMA Unknown History Allergy/AdvReac Type Severity Reaction Status Date / Time clindamycin Allergy Intermediate Rash Verified 02/23/25 14:13 sulfamethoxazole (From Allergy Intermediate Rash Verified 02/23/25 14:13 Septra) trimethoprim (From ) Allergy NEEDS Verified 08/02/21 06:54 FOLLOW-UP Surgical History History of hip surgery Hx of right cataract extraction Hx of left cataract extraction History of esophagogastroduodenoscopy (EGD) History of exploratory laparotomy Hx laparoscopic cholecystectomy Social History Smoking Status: Never smoker Review of Systems (Anesthesia) ROS Narrative System reviewed and no additional complaints, except as documented.
[2025-03-06 07:31] LABS: Internal QC Validated? YES +Cl - CLEAR BKGD; Pregnancy, Urine Negative Negative
[2025-03-06] MEDS: Scopolamine 1mg/72hr Patch 1 PATCH TD (07:47)
[2025-03-06] MEDS: Gabapentin 600 MG Tablet PO (07:49)
[2025-03-06] MEDS: Acetaminophen 500 MG Tablet 1000 MG PO (07:50)
[2025-03-06] MEDS: Lactated Ringers 1,000 ML 40 ML IV (07:51)
[2025-03-06] MEDS: Enoxaparin 40 MG/0.4 ML Syringe SC (07:51)
[2025-03-06] MEDS: Magnesium 1 GM over 15 mins IV (07:52)
[2025-03-06] MEDS: metroNIDAZOLE 500 MG/100 ML BAG 100 MG IV (07:52)
[2025-03-06 08:00] LABS: Bedside Glucose 69 mg/dL (74-106)
[2025-03-06] MEDS: Phenazopyridine 95 MG Tablet 190 MG PO (08:10)
[2025-03-06] MEDS: Celecoxib 200 MG Capsule 400 MG PO (08:10)
--- NOTE | 2025-03-06 08:47 | DCINST_ITS ---
Discharge Instructions Diet Discharge Diet: No restrictions DC O2, CPAP, BIPAP needs Home O2 Discharge instructions: No Dressing / Incision Discharge Activity: May Not Drive (while taking narcotics. may drive when pain controlled. ) and May Shower May shower in (days): 1 May resume sexual activity in: 6-8 weeks Weight Bearing Status: Full weight bearing Lifting Restrictions: 20 Additional Activity Instructions:: NOTHING IN THE VAGINA x 6-8 weeks. Dressing / Incision Call your doctor if your incision/area has: Continuous Slow Oozing, Sudden Increased Bleeding, Increased Pain/ Swelling, Increased Redness, Foul Smelling Discharge and Swelling at the incision site Call your doctor if you observe: Fever of 101 or Higher, Inability to have a bowel movement, Using more than 1 pad per hour and Uncontrolled pain Change Dressing in: leave in place till F/U (you have skin glue over incision sites- do not pick off) Cleanse incision/area with: Soap & Water, Keep Dressing Clean & Dry and - (you may let soap and water run over incision sites and dab dry. ) Follow Up Care Please Follow Up With: Hallie Chacko MD When: 1-2 weeks as scheduled for post op visit and then at 6 weeks post op Test Results: Test results from this visit will be discussed in further detail at your follow- up appointment, if applicable. Discharge Plan Admission Attending Provider: Hallie Chacko Primary Care Provider: Alexa Higuera Instructions Print Language: Bengali Discharge Orders/Prescriptions Prescriptions: New oxycodone 5 mg capsule 5 mg PO Q6H PRN (Reason: pain) 3 Days Qty: 10 0RF Continued fluticasone propion-salmeterol [Advair HFA] 230-21 mcg/actuation HFA aerosol inhaler 2 inh INHALATION BID albuterol sulfate [Ventolin HFA] 90 mcg/actuation HFA aerosol inhaler 2 inh inhalation Q8H PRN (Reason: shortness of breath or wheezing) montelukast 10 mg tablet 10 mg PO QHS azelastine 137 mcg (0.1 %) spray,non-aerosol 2 spray INTRANASAL BID fluticasone propionate 50 mcg/actuation spray,suspension 2 spray INTRANASAL DAILY ondansetron HCl 4 mg tablet 4 mg PO Q8H PRN (Reason: nausea and vomiting) Probiotic Acidophilus 250 million cell capsule 60 mmu cells PO DAILY Zyrtec 10 mg capsule 10 mg PO DAILY PRN (Reason: allergy symptoms) fexofenadine [Allergy Relief (fexofenadine)] 180 mg tablet 180 mg PO DAILY prednisone 50 mg tablet 10 mg PO DAILY PRN (Reason: ASTHMA) albuterol sulfate 2.5 mg /3 mL (0.083 %) solution for nebulization 2.5 mg inhalation Q4H PRN (Reason: shortness of breath or wheezing) Referrals / Follow Up: Alexa Higuera MD [Primary Care Provider] - Disposition Disposition (needs filled in before D/C Order can be placed): Home, Self Care
--- NOTE | 2025-03-06 09:15 | UT_PTH ---
PATIENT: [place] [facility] [id number] AGE/SX: 39/F ROOM: RE03/06/[address]: Dr. Hallie Chacko, MDDOB: 1985 BED: DIS: 03/06/2025 SPEC #: [id number] RECD: 03/06/25 12:14 STATUS: GARY JET #: [id number] MARICEL: 03/06/25 09:[address]: Hallie Chacko DEPT: SURGICAL PATHOLOGY RECD BY: Rayray Parker ENTERED: 03/06/25 13:27 SP TYPE: UTERUS OTHR DR: Dr. Alexa Higuera MD Tissues: A - Uterus, NOS Procedures: Surgery Specimen Level V HEADER OPERATION: Hysterectomy, TLH, bilateral salpingectomy, cystoscopy PRE-OP DIAGNOSIS: Abnormal uterine bleeding, adenomyosis, pelvic pain, fibroid uterus, endometrial polyp TISSUE SUBMITTED: A- Uterus, cervix, bilateral fallopian tubes MICROSCOPIC DIAGNOSIS A. Uterus, cervix, bilateral fallopian tubes and ovaries, hysterectomy: * Cervix: benign endocervical mucosal polyp x2, mildly dilated endocervical glands, focal squamous metaplasia, mild chronic inflammation. * Endometrium: proliferative phase. * Myometrium: leiomyoma x3 (1.3 cm). * Fallopian tube x2: focal transitional cell metaplasia. MICROSCOPIC DESCRIPTION Slides are reviewed. GROSS DESCRIPTION A.? Received in formalin labeled with the patient's name and date of . Designated as uterus, cervix, bilateral fallopian tubes is a 144 g, 8.0 x 5.6 x 4.3 cm uterus with detached fallopian tubes. ?The uterus is oriented using the posterior peritoneal reflection. ?The serosa is drew-pink with focal adhesions and posterior, subserosal (apparent) leiomyomas, 0.3 cm to 1.3 cm.? The 3.3 x 3.2 cm attached cervix is drew-pink and somewhat edematous with a central 1.6 cm os expelling hemorrhagic mucoid material and apparent polypoid tissue; additionally, there is an undesignated, apparent traction suture at the 3:00 aspect. The specimen is inked as follows: anterior-green, posterior-black and parametrium-orange.? Opening reveals 2 drew-pink cervical polyps, 1.3 x 0.7 x 0.4 cm (anterior) and 2.5 x 0.8 x 0.5 cm (posterior). ?There are posterior cervical cysts containing mucoid material.? The slightly irregular, 7.1 x 4.3 cm endometrial canal is lined by pale drew to red, somewhat lush endometrium measuring up to 0.5 cm thick.? The myometrium is pink and somewhat trabeculated with multiple subserosal leiomyomas (0.5 to 1.1 cm) and a maximum thickness of 2.4 cm. The drew-pink, fimbriated fallopian tubes are disrupted into 3 fragments and range from 2.8 cm to 8.0 cm in length with an average of 0.5 cm in diameter.? A few paratubal cysts are identified, each <0.1 cm. Resource Analyst sections are submitted as follows: A1: Anterior cervix with polypA2: Posterior cervix with polypA3: Posterior cervical cystsA4: Anterior endomyometriumA5: Posterior endomyometriumA6: LeiomyomasA7-A8: Fallopian tubes [place] 03/06/2025 CPT:45053
[2025-03-06] MEDS: Cefazolin 2 GM in 0.9% Normal Saline (100mL Bag) 100 ML IV (09:41)
[2025-03-06] MEDS: dexAMETHasone 4 MG/ML Vial 8 MG IV (09:55)
[2025-03-06] MEDS: Bupivacaine Mpf 0.5% 30 ML VIAL (10:03)
--- NOTE | 2025-03-06 11:10 | OP.PCM_ITS ---
Operative Report (Standard) Operative Information Date of Procedure: 03/06/25 Pre-Operative Diagnosis: AUB, adenomyosis, pelvic pain, Fibroid uterus, Endometrial polyp Post-Operative Diagnosis: same Surgery/Procedure Performed: TLH, Bilateral salpingectomy, Cysto physical science technician: Yes Junior Systems Engineer: Debbi velázquez PGY3 Tasks completed by email marketing assistant: Opening & closing, Dissecting tissue, Removing tissue, Insert Trochanter and Retracting Additional psychology assistant?: No Type of Anesthesia: General and Local RN Documented Start/Stop Times: Operation Date: 03/06/25 09:15 Case Time Into Pre-Op 03/06/25 07:05 Out of Pre-Op 03/06/25 09:34 Into Room 03/06/25 09:41 Anesthesia Start 03/06/25 10:03 Procedure Start 03/06/25 10:03 Procedure Start Time: 10:03 Procedure Stop Time: 11:13 Select all DRAINS/GRAFTS/IMPLANTS that apply: None Special Medications: Hemoblast Estimated Blood Loss: 50 Fluids Replaced: 1200cc Specimen collected: Yes Description of specimen(s) removed: uterus, cervix, bilateral tubes Description of surgery: Patient take to OR and prepped and draped in usual sterile fashion in dorsal lithotomy position with her arms tucked in a neurologically safe and neutral position. The uterus sounded to 10 cm. The pattern scratcher uterine manipulator was sutured into place at 3/9:00 position and saucedo were placed. Attention was turned to the abdomen. All port sites were infiltrated with 0.5% marcaine before the incisions were made. The anterior abdominal wall was tented up with towel clamps and using a direct entry approach a 5 mm intraumbilical port was placed. Intraperitoneal placement was confirmed with the laparoscope and the pneumoperitoneum was created. The patient was placed in Trendelenburg and 5 mm right and left lower quadrant ports were placed under direct visualization. Air seal rapid insufflator was used. The bowel was swept away. Ovaries appeared normal. The mesosalpinx starting at fimbriated end were grasped, clamped, sealed and transected with the Ligasure. The round ligaments were divided. The anterior peritoneum was dissected down to create the bladder flap with blunt dissection and the LigaSure. The uterine arteries were isolated, clamped, sealed and cut. There was minimal back bleeding from the uterus. Straight bites on uterine arteries performed to drop them off the cuff. The pattern scratcher was used as guide to create colpotomy using monopolar tip of ligasure. once specimen was removed attention was turned to vaginal portion. The specimen was handed off. The cuff was closed with interrupted 0-vicryl figure of 8 sutures. Cystoscopy was performed bilateral ureters were visualized with good efflux. bladder was intact. saucedo replaced and sponge stick placed in vagina. The pneumoperitoneum was recreated and the cuff and pedicles were hemostatic. hemoblast was placed over cuff and pedicles. The skin incisions were closed with skin glue and 3-0 monocryl in the LLQ port site. The vaginal sweep was completed by me. Grafts/Implants Used: none Surgical Findings: normal tube and ovaries. peritoneal window in posterior culdesac Complications Complications: No Admit VTE Documentation VTE Present on Admission: Yes VTE Mechan Device Prophylaxis: SCD's VTE Pharm Prophylaxis ordered?: Yes
--- NOTE | 2025-03-06 11:46 | PCM.POST.ANE ---
Anesthesia: Postop Eval I Current Vital Signs Temperature: 98 F Pulse Rate: 70 Blood Pressure: 110/68 Respiratory Rate: 16 Pulse Ox: 96 Oxygen Delivery Method: Room Air Assessment Airway patent: Yes Spontaneous unlabored respirations: Yes Mental status: Awake and Calm nausea: No Vomiting: No Anesthesia Complication: No Fluid Hydration Crystalloid volume administer (ml): 1,200 Total IV fluid infused: 1,200 Progress Note Anesthesia document: Postop Eval 1 completed: Yes
--- NOTE | 2025-03-06 11:48 | POSTOPAN2_ITS ---
Anesthesia Postop Eval I Sum Postop Eval Completion status Anesthesia document: Postop Eval 1 completed: Yes Anesthesia Postop Eval I Summary Anesthesia Postop Eval I Summary: Anesthesia Postop Eval I: Assessment Summary Airway patent Yes 03/06/25 11:46 MANAGER FILM.MDOT Spontaneous unlabored Yes 03/06/25 11:46 MANAGER FILM.MDOT respirations Mental status Awake,Calm 03/06/25 11:46 MANAGER FILM.MDOT nausea No 03/06/25 11:46 MANAGER FILM.MDOT Vomiting No 03/06/25 11:46 MANAGER FILM.MDOT Anesthesia Postop Eval I: Fluid Summary Crystalloid volume administer 1,200 03/06/25 11:46 MANAGER FILM.MDOT (ml) Colloids volume administered ( ml) Blood Product volume administered (ml) Total IV fluid infused 1,200 03/06/25 11:46 MANAGER FILM.MDOT Anesthesia Postop Eval I: Summary Notes Anesthesia Complication No 03/06/25 11:46 MANAGER FILM.MDOT Anesthesia Complication Comment: Post-operative progress note Anesthesia: Postop Eval II Evaluation Mental status: Awake Pain Level: 0 nausea: No Vomiting: No
--- NOTE | 2025-03-06 11:48 | PCM.POSTANE2 ---
Anesthesia Postop Eval I Sum Postop Eval Completion status Anesthesia document: Postop Eval 1 completed: Yes Anesthesia Postop Eval I Summary Anesthesia Postop Eval I Summary: Anesthesia Postop Eval I: Assessment Summary Airway patent Yes 03/06/25 11:46 STATION [email or web address] Spontaneous unlabored Yes 03/06/25 11:46 STATION CHIEF.MDOT respirations Mental status Awake,Calm 03/06/25 11:46 STATION CHIEF.MDOT nausea No 03/06/25 11:46 STATION CHIEF.MDOT Vomiting No 03/06/25 11:46 STATION CHIEF.MDOT Anesthesia Postop Eval I: Fluid Summary Crystalloid volume administer 1,200 03/06/25 11:46 STATION CHIEF.MDOT (ml) Colloids volume administered ( ml) Blood Product volume administered (ml) Total IV fluid infused 1,200 03/06/25 11:46 STATION CHIEF.MDOT Anesthesia Postop Eval I: Summary Notes Anesthesia Complication No 03/06/25 11:46 STATION CHIEF.MDOT Anesthesia Complication Comment: Post-operative progress note Anesthesia: Postop Eval II Evaluation Mental status: Awake Pain Level: 0 nausea: No Vomiting: No
[2025-03-06] MEDS: Lactated Ringers @ 70 MLS/HR 70 ML IV (13:06)
== END 2025-03-06 15:15 | disposition home or self-care (01) ==
LOC: SDC 06:56 → AC 06:57
PROVIDERS: Student in an Organized Health Care Education/Training Program; PCP Internal Medicine; Referring Provider Obstetrics & Gynecology; Visit Provider Obstetrics & Gynecology
PROC: 0UT94ZZ Resection of Uterus, Percutaneous Endoscopic Approach (ICD-10-PCS; CPT 58552; principal; 2025-03-06 08:55)
DX: D25.2 Subserosal leiomyoma of uterus (principal); N93.9 Abnormal uterine and vaginal bleeding, unspecified; N80.03 Adenomyosis of the uterus; N87.9 Dysplasia of cervix uteri, unspecified; N72 Inflammatory disease of cervix uteri; N84.1 Polyp of cervix uteri; N83.8 Other noninflammatory disorders of ovary, fallopian tube and broad ligament; J45.909 Unspecified asthma, uncomplicated; Z79.51 Long term (current) use of inhaled steroids; Z79.899 Other long term (current) drug therapy
CPT/HCPCS: 58552; 00944; 36415; 80048; 81025; 82962; 83735; 85027; 86850; 86900; 86901; 88307; 93005; J2405; J3475